=== PATIENT | female | born 1980 | race Caucasian/White ===

== ENCOUNTER → 2017-10-03 07:16 | Outpatient (CLI) | payer OTHER, SELFPAY ==
--- NOTE | 2017-10-03 07:19 | US_ITS ---
STUDY: SALINE INFUSION SONOGRAPHY OF THE UTERUS. REASON FOR EXAM: Female, 37 years old. Infertility. TECHNIQUE: Saline infusion sonography of the endometrium was performed by the tying in machine operator. Imaging was submitted. COMPARISON: None. FINDINGS: No endometrial polyp or mass lesion is seen. US/SIS-SALINE INF SONOHYSTEROGRAM IMPRESSION: No endometrial polyp or mass lesion is seen. Electronically Signed: Coleman Harley MD at 9:26 EST Tel [phone], Service support ,
== END ==
PROVIDERS: Visit Provider Obstetrics & Gynecology
DX: N97.9 Female infertility, unspecified (principal)

== ENCOUNTER 2019-04-24 18:00 | Outpatient (RCR) | payer OTHER, SELFPAY | END 2019-04-27 23:59 | LOC: DC 18:00 | PROVIDERS: Visit Provider Obstetrics & Gynecology | DX: O24.419 Gestational diabetes mellitus in pregnancy, unspecified control (principal) | CPT/HCPCS: 97802 ==

== ENCOUNTER 2019-05-11 10:00 | Outpatient (CLI) | payer OTHER, SELFPAY ==
[2017-08-11 10:51] VITALS: BMI 28.3
[2019-05-11 10:14] VITALS: BMI 32.1
--- NOTE | 2019-05-12 09:11 | OB.TRI.NOTE ---
History of Present Illness Date of Service: 05/11/19 Was patient seen by the physician?: No Reason For Visit: NONSTRESS TEST twins Date of Service: 05/11/19 Final CHHAYA: 07/01/19 Final CHHAYA Source: US <20 weeks Gestational age: 32 Weeks and 6 Days Allergies adhesive tape Allergy (Verified 08/11/17 10:52) Unknown - Pertinent Past Medical History Medical History: Past Medical History (Last Updated 08/11/17 @ 10:54 by Landy Delatorre) H/O wisdom tooth extraction History of in vitro fertilization History of loss of consciousness Seasonal allergies Surgical History: Past Surgical History (Last Updated 08/11/17 @ 10:54 by Landy Delatorre) Hx of section NST - FHR Rate Baby A Baseline: 130 Variability:: Moderate Accelerations:: 15 x 15 Decelerations:: None NST Reactive:: Yes FHR Category:: Category I Uterine Activity:: no ctx - FHR Rate Baby B Baseline: 140 Variability:: Moderate Accelerations:: 15 x 15 Decelerations:: None NST Reactive:: Yes FHR Category:: Category I Uterine Activity:: no ctx Impression/Plan @ 32.5 wks, NST for TWINS well being established- ri home
== END 2019-05-11 10:45 | disposition home health service (06) ==
LOC: WPOUT 10:10 → OBT 10:12
PROVIDERS: Referring Provider Obstetrics & Gynecology; Visit Provider Obstetrics & Gynecology
DX: O30.003 Twin pregnancy, unspecified number of placenta and unspecified number of amniotic sacs, third trimester (principal); Z3A.32 32 weeks gestation of pregnancy
CPT/HCPCS: 59025; 59050; 99218; G0378

== ENCOUNTER 2019-05-14 19:45 | Outpatient (CLI) | payer OTHER, SELFPAY ==
[2019-05-14 20:03] VITALS: BMI 32.5
--- NOTE | 2019-05-15 08:47 | OB.TRI.HP_ITS ---
History of Present Illness Date of Service: 05/14/19 Reason For Visit: NST Date of Service: 05/14/19 Final CHHAYA: 06/30/19 Final CHHAYA Source: US <20 weeks Gestational age: 33 Weeks and 2 Days Allergies adhesive tape Allergy (Verified 08/11/17 10:52) Unknown - Pertinent Past Medical History Medical History: Past Medical History (Last Updated 08/11/17 @ 10:54 by Landy Delatorre) H/O wisdom tooth extraction History of in vitro fertilization History of loss of consciousness Seasonal allergies Surgical History: Past Surgical History (Last Updated 08/11/17 @ 10:54 by Landy Delatorre) Hx of section NST - FHR Rate Baby A Baseline: 125 Variability:: Moderate Accelerations:: 15 x 15 Decelerations:: None NST Reactive:: Yes FHR Category:: Category I Uterine Activity:: irreg mild ctxs - FHR Rate Baby B Baseline: 130 Variability:: Moderate Accelerations:: 15 x 15 Decelerations:: None NST Reactive:: Yes FHR Category:: Category I Uterine Activity:: irreg mild ctxs Impression/Plan 38-year-old high risk multigravida, advanced maternal age, dichorionic d iamniotic twin gestation, in vitro , presents for nonstress testing. NST is reactive x2. Patient was discharged home with routine instructions and follow-up.
== END 2019-05-14 20:30 | disposition home or self-care (01) ==
LOC: WPOUT 19:52 → WP 19:53
PROVIDERS: Referring Provider Obstetrics & Gynecology; Visit Provider Obstetrics & Gynecology
DX: O30.043 Twin pregnancy, dichorionic/diamniotic, third trimester (principal); O09.813 Supervision of pregnancy resulting from assisted reproductive technology, third trimester; O09.523 Supervision of elderly multigravida, third trimester; Z3A.33 33 weeks gestation of pregnancy
CPT/HCPCS: 59025; 59050; 99218; G0378

== ENCOUNTER 2019-05-15 10:00 | Outpatient (RCR) | payer OTHER, SELFPAY ==
[2017-08-11 10:51] VITALS: BMI 28.3
== END 2019-05-15 23:59 | disposition home or self-care (01) ==
LOC: DC 10:00
PROVIDERS: Visit Provider Obstetrics & Gynecology
DX: O24.419 Gestational diabetes mellitus in pregnancy, unspecified control (principal); Z3A.00 Weeks of gestation of pregnancy not specified
CPT/HCPCS: G0108

== ENCOUNTER 2019-05-16 10:00 | Outpatient (CLI) | payer OTHER, SELFPAY ==
[2019-05-16 10:25] VITALS: BMI 31.8
--- NOTE | 2019-05-16 17:27 | OB.TRI.NOTE ---
History of Present Illness Reason For Visit: NST/TWINS Date of Service: 05/16/19 Final CHHAYA: 07/01/19 Final CHHAYA Source: US <20 weeks Gestational age: 33 Weeks and 3 Days Allergies adhesive tape Allergy (Verified 08/11/17 10:52) Unknown - Pertinent Past Medical History Medical History: Past Medical History (Last Updated 08/11/17 @ 10:54 by Landy Delatorre) H/O wisdom tooth extraction History of in vitro fertilization History of loss of consciousness Seasonal allergies Surgical History: Past Surgical History (Last Updated 08/11/17 @ 10:54 by Landy Delatorre) Hx of section NST - FHR Rate Baby A Baseline: 135 Variability:: Moderate Accelerations:: 15 x 15 Decelerations:: Variable NST Reactive:: Yes Uterine Activity:: quiet - FHR Rate Baby B Baseline: 130 Variability:: Moderate Accelerations:: 15 x 15 Decelerations:: Variable NST Reactive:: Yes Uterine Activity:: quiet Impression/Plan Reactive NST for di/di twins in
== END 2019-05-16 10:50 | disposition home or self-care (01) ==
LOC: WPOUT 10:10 → WP 10:10
PROVIDERS: Referring Provider Obstetrics & Gynecology; Visit Provider Obstetrics & Gynecology
DX: O30.043 Twin pregnancy, dichorionic/diamniotic, third trimester (principal); Z3A.33 33 weeks gestation of pregnancy
CPT/HCPCS: 59025

== ENCOUNTER 2019-05-20 09:00 | Outpatient (CLI) | payer OTHER, SELFPAY | END 2019-05-20 09:55 | disposition home or self-care (01) | LOC: WPOUT 09:04 → WP 09:04 | PROVIDERS: Referring Provider Obstetrics & Gynecology; Visit Provider Obstetrics & Gynecology | DX: J02.9 Acute pharyngitis, unspecified (principal) | CPT/HCPCS: 87070 ==

== ENCOUNTER 2019-05-24 09:00 | Outpatient (CLI) | payer OTHER, SELFPAY ==
[2019-05-20 11:24] VITALS: BMI 31.8
[2019-05-24 09:24] VITALS: BMI 31.8
--- NOTE | 2019-05-29 08:56 | OB.TRI.PN ---
Progress Notes Date of Service: 05/24/19 Progress Note: 38 year old female at 34w4d with dichorionic/diamniotic twin gestation for NST. O: Baby A: FHR:135, moderate variability, accels 15x15, Reactive Baby B: 145, moderate variability, accels 15x15, reactive A: Dichorionic Diamniotic twin gestation Advanced Maternal Age Previous Section P: 1) Reactive NST 2) Discharge home
== END 2019-05-24 09:45 | disposition home or self-care (01) ==
LOC: WPOUT 09:02 → WP 09:03
PROVIDERS: Referring Provider Obstetrics & Gynecology; Visit Provider Obstetrics & Gynecology
DX: O30.043 Twin pregnancy, dichorionic/diamniotic, third trimester (principal); O34.219 Maternal care for unspecified type scar from previous cesarean delivery; O09.523 Supervision of elderly multigravida, third trimester; Z3A.36 36 weeks gestation of pregnancy
CPT/HCPCS: 59025; 59050; 99218; G0378

== ENCOUNTER 2019-05-24 09:59 | Emergency (ER) | payer OTHER, SELFPAY ==
[2019-05-24 09:24] VITALS: BMI 31.8
[2019-05-24 10:00] VITALS: BP 129/84; PULSE 102; RESP 22; TEMP 36.9; O2SAT 99; BMI 32.0
--- NOTE | 2019-05-24 10:25 | ED.VIS.GEN ---
History of Present Illness Chief Complaint: Cold Sx Informant: Patient Onset: Days Context: Gradual Onset Timing: Continuous Current Severity: Moderate Maximum Severity: Moderate Narrative: The patient is a healthy 38-year-old female who is currently 34 weeks with twin gestation. The patient presents the emergency department nasal drainage and cough. She states that she developed upper respiratory symptoms about 2 weeks ago. She was seen in urgent care on Monday. She had a negative rapid strep. She states that since then, she had worsening cough. She states she is had a lot of drainage and one episode of posttussive emesis. She denies abdominal pain. She does have edema of her lower extremities, but states this is been constant. She has had low-grade fever. She describes some facial pressure and ear fullness. She denies any chest pain orthopnea. She denies any headache. Prior similar symptoms: No Recent Illness/Hospitalization: No Past Medical History - Allergies and Home Meds Allergies/Adverse Reactions: Allergies adhesive tape Allergy (Verified 05/24/19 10:00) Unknown Primary Care Physician: NOT,DEFINED [Primary Care Provider] - Prior records reviewed: Yes Past Medical History: - - Twin gestation Surgical History: - - Smoking Status: Never smoker Review of Systems General: Denies: Chills, Fever, Sweats Eyes: Denies: Visual changes - bilaterally, Diplopia ENT: Reports: Bilateral ear pain, Rhinorrhea, Sore throat Cardiovascular: Denies: Chest pain, Palpitations Respiratory: Reports: Cough. Denies: Dyspnea, Dyspnea on exertion Gastrointestinal: Denies: Abdominal pain, Nausea, Vomiting, Diarrhea, Melena, Hematochezia Genitourinary: Denies: Dysuria, Hematuria, Frequency Musculoskeletal: Denies: Back pain, Extremity Pain Skin: Denies: Rash, Wounds Neurological: Denies: Headache, Weakness, Numbness Physical Exam Vital Signs/Narrative: Vital Signs Temp Pulse Resp BP Pulse Ox 05/24/19 10:00 98.5 F 102 H 22 H 129/84 H 99 Inital Vital Signs reviewed: Yes General: Well nourished, Well developed, No Acute Distress Head: Normocephalic, Atraumatic, Tenderness Eyes: Perrl, EOMI ENT: Moist mucous membranes, No rhinorrhea Neck: Supple, Nontender Cardiovascular: Regular rate, Regular rhythm, No murmurs Respiratory: No distress, CTA bilaterally, Chest nontender Abdomen: Soft, Nontender, Nondistended, Normal bowel sounds Back: Nontender, Normal Inspection Extremities: Nontender, No edema Skin: Normal color, No rash Neurological: Alert, Oriented x3, Cranial nerves II-XII grossly intact, Normal Strength, Normal Sensation Psychological: Normal affect, Normal Mood Diagnostic/Tx/Re-eval - Medical Decision Making The patient's lungs are clear. She is not hypoxic. She has no tachypnea. She does have symmetric lower extremity edema which is normal for her. She is has a twin gestation. She has some facial fullness, bulging of bilateral TMs, and cobblestoning of the posterior oropharynx. Given her advanced gestation and persistent symptoms I am going to treat her for bacterial sinusitis as I do feel that this would be the most prudent plan of care. Patient is comfortable with this plan of care. She will be discharged home. Impression 1. Sinusitis ED Disposition - Plan for ED Patient: Instructions: SINUSITIS, Abx Tx Prescriptions: Amoxicillin 500 mg PO TID #30 tab Prescription Printed Referrals: NOT,DEFINED [Primary Care Provider] -
== END 2019-05-24 10:56 | disposition home or self-care (01) ==
PROVIDERS: Emergency Provider Emergency Medicine
DX: O99.513 Diseases of the respiratory system complicating pregnancy, third trimester (principal); J32.9 Chronic sinusitis, unspecified; B96.89 Other specified bacterial agents as the cause of diseases classified elsewhere; O30.003 Twin pregnancy, unspecified number of placenta and unspecified number of amniotic sacs, third trimester; Z3A.34 34 weeks gestation of pregnancy
CPT/HCPCS: 99282

== ENCOUNTER 2019-05-28 08:00 | Outpatient (CLI) | payer OTHER, SELFPAY ==
[2019-05-28 08:41] VITALS: BMI 32.1
--- NOTE | 2019-05-28 16:14 | OB.TRI.NOTE ---
History of Present Illness Date of Service: 05/28/19 Was patient seen by the physician?: No Reason For Visit: NON STRESS TEST Date of Service: 05/28/19 Final CHHAYA Source: US <20 weeks Allergies adhesive tape Allergy (Verified 05/28/19 09:25) Unknown - Pertinent Past Medical History Medical History: Past Medical History (Last Updated 05/20/19 @ 11:24 by Katelin Costa) Gestational diabetes H/O wisdom tooth extraction History of in vitro fertilization History of loss of consciousness Seasonal allergies Surgical History: Past Surgical History (Last Reviewed 05/20/19 @ 11:24 by Katelin Costa) Hx of section NST - FHR Rate Baby A Baseline: 125 Variability:: Moderate Accelerations:: 15 x 15 Decelerations:: None NST Reactive:: Yes, Appropriate for gestational age FHR Category:: Category I Uterine Activity:: irreg ctxs - FHR Rate Baby B Baseline: 130 Variability:: Moderate Accelerations:: 15 x 15 Decelerations:: None NST Reactive:: Yes, Appropriate for gestational age FHR Category:: Category I Impression/Plan Diamniotic dichorionic 35-week twin , high risk multigravida, previous section, advanced maternal age, polyhydramnios of twin B Nonstress is reactive x2. Follow-up for twice weekly NSTs and office visits weekly or as needed.
== END 2019-05-28 08:55 | disposition home or self-care (01) ==
LOC: WPOUT 08:05 → WP 08:07
PROVIDERS: Referring Provider Obstetrics & Gynecology; Visit Provider Obstetrics & Gynecology
DX: O30.043 Twin pregnancy, dichorionic/diamniotic, third trimester (principal); O34.219 Maternal care for unspecified type scar from previous cesarean delivery; O09.523 Supervision of elderly multigravida, third trimester; O40.3XX2 Polyhydramnios, third trimester, fetus 2; Z3A.35 35 weeks gestation of pregnancy
CPT/HCPCS: 59025

== ENCOUNTER 2019-05-30 06:20 | Inpatient (IN) | payer OTHER, SELFPAY ==
--- NOTE | 2019-05-27 07:46 | OB.TRI.PN ---
Progress Notes Date of Service: 05/24/19 Progress Note: Here today for NST twin gestation O: Baby A 145, moderate variability, accels, no decels, Reactive Baby B 150, moderate variability, accels, no decels, Reactive No contractions A: Reactive NST P: 1) D/C home
[2019-05-30] VITALS (22 sets, daily range): BP systolic 90–136; BP diastolic 33–88; PULSE 74–97; RESP 16–22; TEMP 35.9–37.1; O2SAT 96–100; BMI 33.0
[2019-05-30] MEDS: Lactated Ringers 1,000 ML 999 ML IV (06:50)
[2019-05-30 07:06] LABS: Bedside Glucose 79 mg/dL (70-110)
[2019-05-30 07:06] LABS: Absolute Lymphocyte Count 2.59 X10^3/uL (0.83-4.51); Absolute Neutrophil Count 5.6 X10^3/uL (2.0-7.7); Basophil# 0.08 X10^3/uL; Basophil% 0.9 % (0-1); Eosinophil# 0.19 X10^3/uL; Hematocrit 36.7 % (37-47); Hemoglobin 12.7 g/dL (12.0-15.0); Lymphocyte # 2.59 X10^3/ul (4.0); Lymphocyte % 27.8 % (19-41); Mean Corp Hgb Conc 34.6 g/dL (32-36); Mean Corpuscular Hgb 35.4 pg (27.0-32.0); Mean Corpuscular Volume 102.2 fL (81-99); Mean Platelet Vol. 9.5 fl (6.2-12.0); Monocyte# 0.51 X10^3/uL; Monocyte% 5.5 % (0-10); NRBC Flagged by Analyzer 0 % (0-5); Neutrophil % 60.1 % (47-70); Platelet Count 279 K/mm3 (150-450); RBC Distribution Width CV 13.2 % (11.6-14.6); RBC Distribution Width SD 49.3 fl (35.1-43.9); Red Blood Count 3.59 M/mm3 (4.2-5.4); White Blood Count 9.3 K/mm3 (4.4-11.0)
[2019-05-30 07:12] LABS: ROM Internal Control Test YES-OK TO RESULT pt. (Internal QC)
[2019-05-30 07:14] LABS: Record Kit Lot#, ROM+ J8255
[2019-05-30 07:22] LABS: ROM Patient Test POSITIVE (Negative)
[2019-05-30] MEDS: Sodium Citrate/Citric Acid 30 ML UDC PO (07:38)
--- NOTE | 2019-05-30 07:40 | PCM.HP.OB ---
History Date of Admission: 05/30/19 Final CHHAYA: 07/01/19 Final CHHAYA Source: US <20 weeks Gestational age: 35 Weeks and 3 Days History of this : This is a 38 year-old, G [], P [], at 35 weeks gestational age. Medical History: Medical History (Last Updated 05/20/19 @ 11:24 by Katelin Costa) Gestational diabetes O24.419 H/O wisdom tooth extraction K08.499 History of in vitro fertilization Z98.890 History of loss of consciousness Z87.898 Seasonal allergies J30.2 Surgical History: Surgical History (Last Reviewed 05/20/19 @ 11:24 by Katelin Costa) Hx of section Z98.891 Allergies adhesive tape Allergy (Verified 05/30/19 06:43) Unknown Home Medications: Home Medications Prenatabs FA 1 tab PO DAILY 01/03/17 Ferrous Sulfate [Iron] 325 mg PO QODAY 05/11/19 Aspirin [Aspirin, Baby] 81 mg PO DAILY@0800 05/24/19 Amoxicillin 500 mg PO TID 05/30/19 Smoking Status: Never smoker Alcohol: None Number of Fetus(es): 2 NST - FHR Rate Baby A Baseline: 125 Variability:: Moderate Accelerations:: 15 x 15 Decelerations:: Variable NST Reactive:: Yes Uterine Activity:: quiet - FHR Rate Baby B Baseline: 130 Variability:: Moderate Accelerations:: 15 x 15 Decelerations:: Variable NST Reactive:: Yes Uterine Activity:: quiet History Past Pregnancies: Past Pregnancies Delivery Date Name GA/Weeks Outcome Route Weight Infant Gender Labor Length Anesthesia Delivery Location Provider FOB Labs: See [facility] prenatals Physical Exam General: Alert, Oriented x3 Abdomen: Soft, Non Tender, Non-Distended, Gravid Neurological: Cranial nerves II-XII grossly intact WIRE 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 Admit to L&D MOD - repeat , informed consent signed Pre-op antibiotics Routine care
[2019-05-30] MEDS: Cefazolin 2 GM in 0.9% Normal Saline 100 ML IV (07:45)
--- NOTE | 2019-05-30 07:47 | OP.PCM_ITS ---
Delivery Classification: TESSY Final CHHAYA: 07/01/19 Gestational age: 35 Weeks and 3 Days corrections corporal: Fely Harris Type of Anesthesia:: Spinal Date of Procedure: 05/30/19 Pre-Operative Diagnosis: (1) Di/di twins (2) PPROM (3) Prior Post-Operative Diagnosis: Same Description of Procedure: Patient taken to OR where spinal anesthesia was placed. She was prepped and draped in normal sterile fashion in a dorsal supine position with a leftward tilt. After ensuring adequacy of anesthesia the Pfannensteil skin incision was made and carried through to the underlying fascia w/ a bovie. The fascia was incised in the midline and carried laterally with the De scissors. The rectus muscles were in the midline and the peritoneum was entered bluntly. The bladder flap was dissected down with the Metzenbaum scissors and blunt dissection. The uterine incision was made with the scalpel and extended lat erally w/ blunt dissection. Fetus A was vertex and the head was brought to the incision in the flexed position. With good fundal pressure the head delivered. Shoulders & body easily followed. The cord was clamped & cut and the infant handed off to waiting pediatric associate. Fetus B feet were grasped & then amniotomy performed. Fetus B was delivered via typical breech maneuvers. 3VC clamped & cut and the was handed to waiting pediatric associate. The placentas were delivered w/ gentle traction and fundal massage and the uterus was exteriorized and cleared of all clots and debris. The uterine incision was closed with 1 vicryl suture in a running locked fashion. A second layer monocryl was used to imbricate the first layer and obtain hemostasis. The uterus was returned to the peritoneal cavity which was cleared of all clots and debris. Pelvis was irrigated. The uterine incision was reexamined and found to be hemostatic. The parietal peritoneum was reapproximated with a running vicryl suture. The fascia was closed with looped PDS suture in a running standard fashion. The subcutaneous tissue was examined, any bleeding bovie cauterized. The subcutaneous tissue was reapproximated with 3-0 vicryl suture. The skin was closed in a subcuticular fashion by the SPEECH AND HEARING DIRECTOR with me present in the labor and delivery suite. I performed the remainder of the procedure w/ assistance. Amniotic Membrane Rupture Type: Spontaneous Amniotic Fluid Description: Clear Placenta Disposition: [facility] Drain: Avery to straight drain Fluids Replaced: 1L Cord Entanglement: None Cord Vessel Description: 3 Vessels Esitmated Blood Loss (ml): 700ml Gender: Female - Regina, weight 4-14 (1 minute): 7 (5 minute): 9 Delayed cord clamping: No Antibiotic Given: Ancef 2 grams IV x1, Zithromax 500 mg/5 mL X1 Complications: None Baby B - Information Amniotic Membrane Rupture Type: Artificial Presentation: Footling Breech - Operative Information Cord Entanglement: None Cord Vessel Description: 3 Vessels Infant B gender: Male - Alejandro - 5-9 (1 minute): 6 (5 minute): 8
[2019-05-30 08:04] LABS: Group B Strep DNA By PCR Negative (Negative); Internal Control PASS; Probe Check PASS; Specimen Processing Control PASS
[2019-05-30] MEDS: Oxytocin 30 units/NS 500 ml 30 UNITS/500 ML IV.SOLN 167 UNITS IV (09:45)
[2019-05-30 10:40] LABS: Bedside Glucose 109 mg/dL (70-110)
[2019-05-30] MEDS: Lactated Ringers 1,000 ML 100 ML IV (12:45)
[2019-05-30] MEDS: Ketorolac 30 MG/ML Syringe IV ×2 (15:27→21:41)
[2019-05-30] MEDS: AMOXICILLIN 500 MG CAPSULE PO (21:41)
--- NOTE | 2019-05-30 23:51 | NURSING ---
Pt up to BR a few times attempting to void, only able to void 50cc, fundus at U and to left. Pt straight cath'd for 200cc clear yellow urine with sterile technique, pt tolerated well.
[2019-05-31 00:45] VITALS: BP 127/85; PULSE 78; RESP 17; TEMP 35.9; O2SAT 100
[2019-05-31 02:40] VITALS: PULSE 72; RESP 18; O2SAT 99
[2019-05-31 03:45] VITALS: BP 119/63; PULSE 84; RESP 17; TEMP 36.2; O2SAT 99
[2019-05-31] MEDS: 0.9% Saline Lock 10 ML Syringe IV (03:48)
[2019-05-31] MEDS: Ketorolac 30 MG/ML Syringe IV (03:48)
[2019-05-31] MEDS: AMOXICILLIN 500 MG CAPSULE PO (05:37)
[2019-05-31 05:40] VITALS: PULSE 73; RESP 17; O2SAT 98
[2019-05-31 05:50] LABS: Hematocrit 28.9 % (37-47); Hemoglobin 9.9 g/dL (12.0-15.0); Mean Corp Hgb Conc 34.3 g/dL (32-36); Mean Corpuscular Volume 102.1 fL (81-99); Mean Platelet Vol. 9.6 fl (6.2-12.0); Platelet Count 168 K/mm3 (150-450); RBC Distribution Width CV 13.2 % (11.6-14.6); RBC Distribution Width SD 49.5 fl (35.1-43.9); Red Blood Count 2.83 M/mm3 (4.2-5.4); White Blood Count 12.1 K/mm3 (4.4-11.0)
[2019-05-31 05:51] LABS: Bedside Glucose 80 mg/dL (70-110)
--- NOTE | 2019-05-31 07:38 | PCM.PN.OB ---
Subjective: No complaints - Physical Exam General: Alert, Oriented x3 Abdomen: Soft, Non Tender, Non-Distended - ff mid & below umb; inc - bandage c/d/i Extremities: No Calf Tenderness Vital Signs Temp Pulse Resp BP Pulse Ox 97.2 F L 73 17 119/63 98 05/31/19 03:45 05/31/19 05:40 05/31/19 05:40 05/31/19 03:45 05/31/19 05:40 Oxygen Delivery Method Room Air Weight: 163 lb 9.6 oz Body Mass Index (BMI) 33.0 Intake and Output for Last 24 Hours 05/29/19 05/30/19 05/31/19 23:59 23:59 23:59 Intake Total 3280.75 / 3280.75 Output Total 500 / 500 425 / 425 Balance 2780.75 / 2780.75 -425 / -425 Laboratory Tests Past 24 Hrs 05/30/19 05/30/19 05/31/19 06:30 06:30 05:40 WBC 12.1 H RBC 2.83 L Hgb 9.9 L Hct 28.9 L MCV 102.1 H MCH 35.0 H MCHC 34.3 RDW Std Deviation 49.5 H RDW Coeff of Ella 13.2 Plt Count 168 MPV 9.6 Group B Strep DNA Negative Specimen Comment Not Reportable Blood Type B POSITIVE Antibody Screen NEGATIVE POC Glucose 05/31/19 05/30/19 05:43 10:18 POC Glucose 80 109 Medical Necessity - Tobacco Use Smoking Status: Never smoker Assessment/Plan All Active Problems (Last Updated 05/20/19 @ 11:24 by Katelin Costa) Pharyngitis (Acute) URI (upper respiratory infection) (Acute) Tinea corporis (Acute) Staph infection (Acute) POD#1 Heme - HDC, continue iron for mild anemia - kumari out, adequate UOP GI - tolerating PO ID - no signs infection D/c home per patient request so she can be with her babies
--- NOTE | 2019-05-31 07:40 | DCINST_ITS ---
Discharge Diet: No Restrictions Discharge Activity: May not drive while taking narcotic pain medications., May Shower May resume sexual activity in: 4-6 weeks Weight Bearing Status: Weight bearing as tolerated Call your doctor if your incision/area has: Continuous Slow Oozing, Sudden Increased Bleeding, Increased Pain/ Swelling, Increased Redness, Foul Smelling Discharge, Swelling at the incision site Suture Line Care: Avoid Pulling/Pushing Cleanse incision/area with: Soap & Water Additional Instructions: If you experience any of the following, contact your healthcare provider. * Bleeding that soaks a pad every hour for 2 hours * Fever 100.4 or higher * Unrelieved incision or abdominal pain * Swelling, redness, discharge or bleeding from your incision or e pisiotomy site * Your incision begins to separate * Problems urinating (including inability to urinate or burning while urinating). * Visual changes * Severe headache * Flu-like symptoms * Pain or redness in one of both of your breasts * Pain, warmth, tenderness or swelling in your legs, especially the calf area * Frequent nausea and vomiting * Symptoms of depression or anxiety If you experience any of the following, call 911 or go to the nearest Emergency Room. * Chest pain * Problems breathing * Seizure activity * Partial or complete paralysis of a body part, slurred speech, weakness or drooping of the face, or a sudden inability to walk or hold your balance Allergies/Adverse Reactions: Allergies adhesive tape Allergy (Verified 05/30/19 06:43) Unknown Medications to take at Discharge Prenatabs FA 1 tab PO DAILY 01/03/17 Ferrous Sulfate [Iron] 325 mg PO QODAY 05/11/19 Aspirin [Aspirin, Baby] 81 mg PO DAILY@0800 05/24/19 Amoxicillin 500 mg PO TID 05/30/19 Oxycodone [Oxyir] 5 mg PO Q6H PRN PRN 3 Days #10 tab 05/31/19 The following prescriptions were given: Oxycodone [Oxyir] 5 mg PO Q6H PRN PRN 3 Days #10 tab PRN Reason: Pain Score 4-10/10 Prescription Printed Follow-Up: Call to make an appointment with your doctor for an incision check in 1-2 weeks. You will also need a 6 week post- follow up appointment. Test results from this visit will be discussed in further detail at your follow- up appointment, if applicable. Primary Care Physician: Manuel Greer MD [Primary Care Provider] -
[2019-05-31 08:20] VITALS: BP 132/62; PULSE 90; RESP 18; TEMP 36.2
[2019-05-31] MEDS: Ibuprofen 600 MG Tablet PO (09:40)
== END 2019-05-31 09:50 | disposition home or self-care (01) | DRG 788 ==
PROVIDERS: Obstetrics & Gynecology; Admitting Provider Obstetrics & Gynecology; Referring Provider Obstetrics & Gynecology; Visit Provider Obstetrics & Gynecology
DX: O42.913 Preterm premature rupture of membranes, unspecified as to length of time between rupture and onset of labor, third trimester (principal); O34.211 Maternal care for low transverse scar from previous cesarean delivery; O32.1XX2 Maternal care for breech presentation, fetus 2; O30.043 Twin pregnancy, dichorionic/diamniotic, third trimester; O24.429 Gestational diabetes mellitus in childbirth, unspecified control; O99.02 Anemia complicating childbirth; D64.9 Anemia, unspecified; O99.52 Diseases of the respiratory system complicating childbirth; J01.90 Acute sinusitis, unspecified; J30.2 Other seasonal allergic rhinitis; Z3A.35 35 weeks gestation of pregnancy; Z37.2 Twins, both liveborn; Z79.82 Long term (current) use of aspirin
CPT/HCPCS: 59025; 59050; 82962; 84112; 85025; 85027; 86850; 86900; 86901; 87081; 87653; 99218; J7120; A4216; G0378

== ENCOUNTER 2021-06-03 13:12 | Emergency (ER) | payer OTHER, SELFPAY ==
[2021-06-03 13:13] VITALS: BP 137/81; PULSE 88; RESP 19; TEMP 38.2; O2SAT 97; BMI 29.5
--- NOTE | 2021-06-03 13:39 | EX.ED.GENINJ ---
HPI History of Present Illness Chief Complaint: Laceration Informant: patient Narrative Narrative: 40-year-old female sustained a right index finger laceration on the blades of a director food and beverage. She notes continued bleeding. Patient notes that she is feeling slightly feverish and got her second Covid vaccination yesterday [facility] Medical History Gestational diabetes History of in vitro fertilization History of loss of consciousness Seasonal allergies Home Medications Prenatabs FA 1 tab PO DAILY 01/03/17 [History Last Taken 05/29/19 20:00] ferrous sulfate 325 mg PO QODAY 05/11/19 [History Last Taken 05/29/19 20:00] aspirin 81 mg PO DAILY@0800 05/24/19 [History Last Taken 05/29/19 20:00] amoxicillin 500 mg PO TID 05/30/19 [History Last Taken 05/29/19 20:00] Allergy/AdvReac Type Severity Reaction Status Date / Time adhesive tape Allergy Unknown Verified 06/03/21 13:15 Family History Other Epilepsy Hypertension Skin cancer Surgical History H/O wisdom tooth extraction Hx of section Social History Smoking Status: Never smoker alcohol intake: never ROS ROS ED Constitutional Constitutional ED: Denies chills or weight loss Eyes Eyes: Denies change in vision or diplopia ENT ENT ED: Denies ear pain, rhinorrhea or sore throat Cardiovascular Cardiovascular: Denies chest pain, orthopnea, palpitations or racing heartbeat Respiratory/Chest Respiratory/Chest: Denies cough, dyspnea or orthopnea Gastrointestinal Gastrointestinal: Denies abdominal pain, diarrhea, nausea or vomiting Genitourinary Genitourinary ED: Denies dysuria, hematuria or urinary frequency Musculoskeletal Musculoskeletal: Denies arthralgias or myalgias Integumentary Reports other Details: Laceration ; Denies abscess or rash Neurologic Neurologic: Denies headache(s) or weakness Psychiatric Psychiatric: Denies anxiety, depression, suicidal ideation or suicidal thoughts Endocrine Endocrinology: Denies polydipsia, polyphagia or polyuria Allergic/Immunologic Allergic/Immunologic ED: Denies mouth swelling, tongue swelling or urticaria EXAM Physical Exam Const Vital Signs: 06/03/21 13:13 Temperature 100.8 F H Temperature Source Temporal Pulse Rate 88 Respiratory Rate 19 H Blood Pressure 137/81 H Blood Pressure Mean 99 Pulse Ox 97 Oxygen Delivery Method Room Air Positive well nourished and well developed General Appearance ED: well developed HEENT Reports normocephalic, head/scalp atraumatic and moist mucous membranes Eyes PERRL and EOMs intact bilaterally Neck no lymphadenopathy, supple and no JVD Resp normal respiratory effort and clear to auscultation bilaterally Cardio regular rate, regular rhythm and no murmurs GI normal to inspection, nondistended, normoactive bowel sounds and non-tender Palpation: soft Back/Spine no CVA tenderness and normal ROM Extremity Extremity Narrative: There is a T shaped laceration measuring approximately 1 cm x 2 mm. There is active bleeding. General Extremety ED: Negative for edema General Extremity: Negative for edema Neuro oriented x3 and CN's II-XII intact bilaterally Sensorium / Orientation: alert Motor Exam: strength 5/5 throughout Psych mental status grossly normal Mood & Affect: Negative for depressed or tearful Skin no rashes or lesions noted MDM MDM MDM Narrative Medical decision making narrative: Tourniquet was applied. 1% lidocaine and epinephrine was instilled into the wound. Adequate anesthesia and hemostasis was obtained. The wound was closed using a total of 3 simple interrupted 5-0 Ethilon sutures. Wound care discussed with patient return if worsening or concerns Discharge Plan Triage Chief Complaint: Laceration ED Provider: Chandan Zaamn Dx/Rx/DC Orders Clinical Impression: Finger laceration Instructions: ED Laceration, Hand: All Closures Prescriptions: No Action Prenatabs FA 1 tab PO DAILY RF: 0 amoxicillin 500 MG tablet 500 mg PO TID RF: 0 ferrous sulfate 325 MG tablet 325 mg PO QODAY RF: 0 aspirin 81 MG tablet,chewable 81 mg PO DAILY@0800 RF: 0 Primary Care Provider: Long Jackson Referrals: Long Jackson MD [Primary Care Provider] - Activity Restrictions/Additional Instructions: Please follow-up with your primary care doctor in 7 to 10 days for suture removal Disposition Disposition: Home, Self Care
[2021-06-03] MEDS: Lidocaine 1% /Epi 1:100 (20ml) 20 ML Vial INFILT (13:47)
== END 2021-06-03 13:59 | disposition home or self-care (01) ==
LOC: ED 13:51
PROVIDERS: Emergency Provider Emergency Medicine; PCP Obstetrics & Gynecology
DX: S61.210A Laceration without foreign body of right index finger without damage to nail, initial encounter (principal); W26.8XXA Contact with other sharp object(s), not elsewhere classified, initial encounter
CPT/HCPCS: 12001; 99283

== ENCOUNTER → 2021-07-03 10:20 | Outpatient (CLI) | payer OTHER, SELFPAY ==
[2021-07-03 11:19] LABS: Hemoglobin A1c 5.5 % (3.8-5.6)
[2021-07-03 11:37] LABS: AST(SGOT) 15 U/L (15-37); Alanine Aminotransfer ALT/SGPT 27 U/L (13-56); Albumin, Serum 3.7 g/dL (3.2-5.0); Alkaline Phosphatase 131 U/L (45-117); Anion Gap 3 (5-15); BUN 16 mg/dL (7-18); BUN/Creat Ratio 21.3 RATIO (10-20); Chloride 106 mmol/L (98-107); Cholesterol 192 mg/dL (200); Creatinine, Serum 0.75 mg/dL (0.55-1.02); EST Glomerular Filtration Rate 91 mL/min (>60); Est Glom Filt Rate - Afr Amer 110 mL/min (>60); Globulin 3.6 g/dL (2.2-4.2); Glucose 98 mg/dL (74-106); High Density Lipoprotein 44 mg/dL; Protein, Total 7.3 g/dL (6.4-8.2); Sodium Level 137 mmol/L (136-145); Triglycerides 285 mg/dL; Very Low Density Lipoprotein 57 mg/dL (5-40)
[2021-07-05 10:07] LABS: Hepatitis C Antibody Non-Reactive (Nonreactive)
== END ==
PROVIDERS: PCP Physician Assistant; Visit Provider Physician Assistant
DX: Z00.00 Encounter for general adult medical examination without abnormal findings (principal); Z11.59 Encounter for screening for other viral diseases; Z13.220 Encounter for screening for lipoid disorders; Z13.6 Encounter for screening for cardiovascular disorders; Z13.1 Encounter for screening for diabetes mellitus; Z86.32 Personal history of gestational diabetes
CPT/HCPCS: 36415; 80053; 80061; 83036; 86803; 86804

== ENCOUNTER → 2021-12-23 | Outpatient (CLI) | payer OTHER, SELFPAY ==
[2021-12-23 10:11] LABS: Absolute Neutrophil Count 6.1 X10^3/uL (2.0-7.7); Basophil# 0.05 X10^3/uL; Basophil% 0.6 % (0-1); Eosinophil# 0.16 X10^3/uL; Eosinophils% 1.8 % (0-5); Hematocrit 35.9 % (37-47); Hemoglobin 11.7 g/dL (12.0-15.0); Lymphocyte % 23.5 % (19-41); Mean Corp Hgb Conc 32.6 g/dL (32-36); Mean Corpuscular Hgb 29.8 pg (27.0-32.0); Mean Corpuscular Volume 91.3 fL (81-99); Mean Platelet Vol. 8.9 fl (6.2-12.0); Monocyte# 0.48 X10^3/uL; Monocyte% 5.4 % (0-10); NRBC Flagged by Analyzer 0 % (0-5); Neutrophil % 68.3 % (47-70); Platelet Count 350 K/mm3 (150-450); RBC Distribution Width CV 12.7 % (11.6-14.6); RBC Distribution Width SD 41.9 fl (35.1-43.9); Red Blood Count 3.93 M/mm3 (4.2-5.4); White Blood Count 8.9 K/mm3 (4.4-11.0)
[2021-12-23 10:31] LABS: Hemoglobin A1c 5.4 % (3.8-5.6)
[2021-12-23 12:14] LABS: HIV - WCH Non-Reactive (Nonreactive); Hepatitis B Surface Antigen Non-Reactive (Nonreactive); Hepatitis C Antibody Non-Reactive (Nonreactive); Rubella IgG Reactive (Nonreactive); Syphilis Antibodies Non-reactive
== END | disposition home or self-care (01) ==
LOC: LAB 09:54
PROVIDERS: PCP Physician Assistant; Referring Provider Obstetrics & Gynecology; Visit Provider Obstetrics & Gynecology
DX: O09.529 Supervision of elderly multigravida, unspecified trimester (principal); Z3A.00 Weeks of gestation of pregnancy not specified
CPT/HCPCS: 36415; 83036; 85025; 86703; 86762; 86780; 86803; 86850; 86900; 86901; 87340

== ENCOUNTER → 2022-02-19 | Outpatient (CLI) | payer OTHER, SELFPAY ==
[2022-02-26 00:06] LABS: AFP MoM Value 0.63 (.); AFP Value-EIA 23.5 ng/mL (.); Comment Report (.); DIA MoM Value 1.64 (.); DIA Value-EIA 236.95 pg/mL (.); DSR (By Age) 85 (.); DSR (Second Trimester) 17 (.); Gestational Age 16.9 WEEKS (.); Maternal Age At EDD 40.1 yr (.); hCG MoM 1.78 (.)
[2022-02-26 15:31] LABS: Gestat. Age Based On EDD (.)
== END | disposition home or self-care (01) ==
PROVIDERS: PCP Physician Assistant; Referring Provider Advanced Practice Midwife; Visit Provider Advanced Practice Midwife
DX: Z34.92 Encounter for supervision of normal pregnancy, unspecified, second trimester (principal)
CPT/HCPCS: 36415; 82105; 82677; 84702

== ENCOUNTER → 2022-05-07 | Outpatient (CLI) | payer OTHER, SELFPAY ==
[2022-05-07 09:29] LABS: Absolute Lymphocyte Count 1.56 X10^3/uL (0.83-4.51); Absolute Neutrophil Count 5.4 X10^3/uL (2.0-7.7); Basophil# 0.04 X10^3/uL; Basophil% 0.5 % (0-1); Eosinophil# 0.23 X10^3/uL; Eosinophils% 2.9 % (0-5); Hemoglobin 10.3 g/dL (12.0-15.0); Lymphocyte # 1.56 X10^3/ul (0.83-4.51); Lymphocyte % 19.8 % (19-41); Mean Corp Hgb Conc 32.2 g/dL (32-36); Mean Corpuscular Hgb 32.2 pg (27.0-32.0); Mean Platelet Vol. 9.6 fl (6.2-12.0); Monocyte# 0.51 X10^3/uL; Monocyte% 6.5 % (0-10); NRBC Flagged by Analyzer 0 % (0-5); Neutrophil # 5.36 X10^3/uL (2.7-7.7); Neutrophil % 68.3 % (47-70); Platelet Count 295 K/mm3 (150-450); RBC Distribution Width CV 13.4 % (11.6-14.6); RBC Distribution Width SD 48.6 fl (35.1-43.9); White Blood Count 7.9 K/mm3 (4.4-11.0)
[2022-05-07 09:53] LABS: Glucose Challenge Gest 1H 50g 193 mg/dL (70-140)
[2022-05-09 08:56] LABS: Syphilis Antibodies Non-reactive
== END | disposition home or self-care (01) ==
LOC: LAB 08:01
PROVIDERS: PCP Physician Assistant; Referring Provider Obstetrics & Gynecology; Visit Provider Obstetrics & Gynecology
DX: O09.529 Supervision of elderly multigravida, unspecified trimester (principal); Z3A.00 Weeks of gestation of pregnancy not specified
CPT/HCPCS: 36415; 82950; 85025; 86780

== ENCOUNTER → 2022-06-17 | Outpatient (CLI) | payer OTHER, SELFPAY ==
[2022-06-17 14:02] LABS: Absolute Lymphocyte Count 2.42 X10^3/uL (0.83-4.51); Absolute Neutrophil Count 6.8 X10^3/uL (2.0-7.7); Basophil# 0.04 X10^3/uL; Basophil% 0.4 % (0-1); Eosinophil# 0.16 X10^3/uL; Eosinophils% 1.5 % (0-5); Hematocrit 34.4 % (37-47); Hemoglobin 11.5 g/dL (12.0-15.0); Lymphocyte # 2.42 X10^3/ul (0.83-4.51); Lymphocyte % 23.3 % (19-41); Mean Corp Hgb Conc 33.4 g/dL (32-36); Mean Corpuscular Hgb 32.8 pg (27.0-32.0); Mean Platelet Vol. 9.8 fl (6.2-12.0); Monocyte# 0.74 X10^3/uL; Monocyte% 7.1 % (0-10); NRBC Flagged by Analyzer 0 % (0-5); Neutrophil # 6.77 X10^3/uL (2.7-7.7); Neutrophil % 65.2 % (47-70); Platelet Count 282 K/mm3 (150-450); RBC Distribution Width CV 14.1 % (11.6-14.6); RBC Distribution Width SD 49.9 fl (35.1-43.9); Red Blood Count 3.51 M/mm3 (4.2-5.4); White Blood Count 10.4 K/mm3 (4.4-11.0)
== END | disposition home or self-care (01) ==
LOC: LAB 12:58
PROVIDERS: PCP Physician Assistant; Referring Provider Advanced Practice Midwife; Visit Provider Advanced Practice Midwife
DX: Z34.83 Encounter for supervision of other normal pregnancy, third trimester (principal)
CPT/HCPCS: 36415; 85025

== ENCOUNTER 2022-06-30 13:00 | Outpatient (CLI) | payer OTHER, SELFPAY ==
[2022-06-30 13:08] VITALS: BMI 34.4
[2022-06-30 13:13] VITALS: BP 110/69; PULSE 90
--- NOTE | 2022-07-04 21:09 | OB.TRI.NOTE ---
HPI - General General Date of Admission: 06/30/22 Date of Service: 06/30/22 Chief Complaint: scheduled NST HPI Narrative ZAINAB SANTIAGO, is a 42 F who presents for scheduled NST for A2GDM. [facility] Medical History Gestational diabetes History of in vitro fertilization History of loss of consciousness Seasonal allergies Home Medications Prenatabs FA 1 tab PO DAILY Check with primary doctor 01/03/17 [History Last Taken 06/29/22 21:00] ferrous sulfate 325 mg (65 mg iron) tablet 45 mg PO QHS Check with primary doctor 05/11/19 [History Last Taken 06/29/22 21:00] aspirin 81 mg chewable tablet 81 mg PO DAILY@0800 Check with primary doctor 05/24/19 [History Last Taken 06/29/22 21:00] Novolin 70-30 FlexPen U-100 16 units IJ QHS 06/30/22 [History Last Taken 06/29/22 21:00] amoxicillin 875 mg-potassium clavulanate 125 mg tablet 1 tab PO BID 10 days #20 tabs 07/02/22 [Rx Last Taken Unknown] Allergy/AdvReac Type Severity Reaction Status Date / Time adhesive tape Allergy Unknown Verified 07/02/22 09:09 Family History Other Epilepsy Hypertension Skin cancer Surgical History H/O wisdom tooth extraction Hx of section Social History Smoking Status: Never smoker alcohol intake: never History Elective abortions Hx Para 1 Spontaneous abortions Hx # Term Pregnancies Ectopic pregnancies Hx # Pregnancies Multiple births # of living children NST FHR Rate Baby A Baseline: 120 Variability:: Moderate Accelerations:: 15 x 15 Decelerations:: None NST Reactive:: Yes Uterine Activity:: None Assessment & Plan (1) Gestational diabetes: PLAN: NST reactive Continue weekly antepartum testing as scheduled and follow up in office (2) 35 weeks gestation of :
== END 2022-06-30 13:45 | disposition home or self-care (01) ==
LOC: WPOUT 13:06 → WP 13:06
PROVIDERS: PCP Physician Assistant; Visit Provider Obstetrics & Gynecology
DX: O24.419 Gestational diabetes mellitus in pregnancy, unspecified control (principal); Z79.4 Long term (current) use of insulin; Z3A.40 40 weeks gestation of pregnancy
CPT/HCPCS: 59025; 59050; 99218; G0378

== ENCOUNTER 2022-07-12 11:00 | Outpatient (CLI) | payer OTHER, SELFPAY ==
[2022-07-12 11:07] VITALS: BP 140/93; PULSE 103
[2022-07-12 11:09] VITALS: BMI 34.3
[2022-07-12 11:27] VITALS: BP 123/77; PULSE 77
--- NOTE | 2022-07-20 00:07 | OB.TRI.HP_ITS ---
HPI - General General Date of Admission: 07/12/22 Date of Service: 07/12/22 HPI Narrative ZAINAB SANTIAGO, is a 42 F who presents [facility] Medical History Gestational diabetes History of in vitro fertilization History of loss of consciousness Seasonal allergies Home Medications Prenatabs FA 1 tab PO DAILY Check with primary doctor 01/03/17 [History Last Taken 07/18/22 21:00] ferrous sulfate 325 mg (65 mg iron) tablet 45 mg PO QHS Check with primary doctor 05/11/19 [History Last Taken 07/18/22 21:00] aspirin 81 mg chewable tablet 81 mg PO DAILY@0800 Check with primary doctor 05/24/19 [History Last Taken 07/18/22 21:00] Novolin 70-30 FlexPen U-100 16 units IJ QHS 06/30/22 [History Last Taken 07/18/22 21:00] Allergy/AdvReac Type Severity Reaction Status Date / Time adhesive tape Allergy Unknown Verified 07/19/22 09:51 Family History Other Epilepsy Hypertension Skin cancer Surgical History H/O wisdom tooth extraction Hx of section Social History Smoking Status: Never smoker alcohol intake: never History Elective abortions Hx Para 1 Spontaneous abortions Hx # Term Pregnancies Ectopic pregnancies Hx # Pregnancies Multiple births # of living children NST FHR Rate Baby A Baseline: 130 Variability:: Moderate Accelerations:: 15 x 15 Decelerations:: None NST Reactive:: Yes FHR Category:: Category I Uterine Activity:: irritability Assessment & Plan (1) 37 weeks gestation of : PLAN: 37-week advanced maternal age high risk multigravida with history of previous section presents for nonstress test. It is category 1 and reactive. She was discharged home with routine instructions and follow-up.
== END 2022-07-12 11:45 | disposition home or self-care (01) ==
LOC: WPOUT 11:03 → WP 11:03
PROVIDERS: PCP Physician Assistant; Visit Provider Obstetrics & Gynecology
DX: O09.13 Supervision of pregnancy with history of ectopic pregnancy, third trimester (principal); O09.523 Supervision of elderly multigravida, third trimester; Z3A.37 37 weeks gestation of pregnancy; Z79.82 Long term (current) use of aspirin
CPT/HCPCS: 59025; 59050; 99218; G0378

== ENCOUNTER → 2022-07-15 | Outpatient (CLI) | payer OTHER, SELFPAY ==
[2022-07-15 10:57] LABS: AST(SGOT) 25 U/L (15-37); Alanine Aminotransfer ALT/SGPT 40 U/L (13-56); Albumin, Serum 2.2 g/dL (3.2-5.0); Alkaline Phosphatase 257 U/L (45-117); Bilirubin, Direct 0.11 mg/dL (0.00-0.30); Globulin 4.1 g/dL (2.2-4.2); Protein, Total 6.3 g/dL (6.4-8.2)
== END | disposition home or self-care (01) ==
PROVIDERS: PCP Physician Assistant; Visit Provider Obstetrics & Gynecology
DX: O99.719 Diseases of the skin and subcutaneous tissue complicating pregnancy, unspecified trimester (principal); L29.9 Pruritus, unspecified; Z3A.00 Weeks of gestation of pregnancy not specified
CPT/HCPCS: 36415; 80076

== ENCOUNTER 2022-07-19 09:30 | Outpatient (CLI) | payer OTHER, SELFPAY ==
[2022-07-19 09:49] VITALS: BMI 34.9
[2022-07-19 09:54] VITALS: BP 124/70; PULSE 68
--- NOTE | 2022-07-20 00:04 | OB.TRI.NOTE ---
HPI - General HPI Narrative ZAINAB SANTIAGO, is a 42 F who presents PFSH PFS Medical History Gestational diabetes History of in vitro fertilization History of loss of consciousness Seasonal allergies Home Medications Prenatabs FA 1 tab PO DAILY Check with primary doctor 01/03/17 [History Last Taken 07/18/22 21:00] ferrous sulfate 325 mg (65 mg iron) tablet 45 mg PO QHS Check with primary doctor 05/11/19 [History Last Taken 07/18/22 21:00] aspirin 81 mg chewable tablet 81 mg PO DAILY@0800 Check with primary doctor 05/24/19 [History Last Taken 07/18/22 21:00] Novolin 70-30 FlexPen U-100 16 units IJ QHS 06/30/22 [History Last Taken 07/18/22 21:00] Allergy/AdvReac Type Severity Reaction Status Date / Time adhesive tape Allergy Unknown Verified 07/19/22 09:51 Family History Other Epilepsy Hypertension Skin cancer Surgical History H/O wisdom tooth extraction Hx of section Social History Smoking Status: Never smoker alcohol intake: never History Elective abortions Hx Para 1 Spontaneous abortions Hx # Term Pregnancies Ectopic pregnancies Hx # Pregnancies Multiple births # of living children NST FHR Rate Baby A Baseline: 125 Variability:: Moderate Accelerations:: 15 x 15 Decelerations:: None NST Reactive:: Yes FHR Category:: Category I Uterine Activity:: irreg ctxs Assessment & Plan (1) 38 weeks gestation of : PLAN: High risk multigravida with advanced maternal age and history of previous section. Reactive nonstress test. Discharged home with routine follow-up or return as needed.
== END 2022-07-19 10:18 | disposition home or self-care (01) ==
LOC: WPOUT 09:33 → WP 09:34
PROVIDERS: PCP Psychiatry & Neurology Vascular Neurology; Visit Provider Obstetrics & Gynecology
DX: O09.10 Supervision of pregnancy with history of ectopic pregnancy, unspecified trimester (principal); O34.219 Maternal care for unspecified type scar from previous cesarean delivery; O09.523 Supervision of elderly multigravida, third trimester; Z3A.38 38 weeks gestation of pregnancy
CPT/HCPCS: 59025; 59050; 99218; G0378

== ENCOUNTER 2022-07-26 09:30 | Inpatient (IN) | payer OTHER, SELFPAY ==
[2022-07-26] VITALS (16 sets, daily range): BP systolic 102–126; BP diastolic 54–78; PULSE 62–94; RESP 14–19; TEMP 35.8–37; O2SAT 96–99; BMI 35.2
[2022-07-26] MEDS: Lactated Ringers 1,000 ML 999 ML IV (09:55)
[2022-07-26 10:11] LABS: Absolute Lymphocyte Count 2.37 X10^3/uL (0.83-4.51); Absolute Neutrophil Count 5.3 X10^3/uL (2.0-7.7); Basophil# 0.02 X10^3/uL; Basophil% 0.2 % (0-1); Eosinophil# 0.17 X10^3/uL; Hematocrit 35.1 % (37-47); Hemoglobin 11.7 g/dL (12.0-15.0); Lymphocyte # 2.37 X10^3/ul (0.83-4.51); Lymphocyte % 28.3 % (19-41); Mean Corp Hgb Conc 33.3 g/dL (32-36); Mean Corpuscular Hgb 32.2 pg (27.0-32.0); Mean Corpuscular Volume 96.7 fL (81-99); Mean Platelet Vol. 10.4 fl (6.2-12.0); Monocyte# 0.47 X10^3/uL; Monocyte% 5.6 % (0-10); NRBC Flagged by Analyzer 0 % (0-5); Neutrophil # 5.26 X10^3/uL (2.7-7.7); Neutrophil % 62.9 % (47-70); Platelet Count 231 K/mm3 (150-450); RBC Distribution Width CV 13.9 % (11.6-14.6); RBC Distribution Width SD 49.4 fl (35.1-43.9); Red Blood Count 3.63 M/mm3 (4.2-5.4); White Blood Count 8.4 K/mm3 (4.4-11.0)
[2022-07-26] MEDS: Dextrose 5%-Lactated Ringers 1,000 ML 200 ML IV (10:53)
[2022-07-26] MEDS: Acetaminophen 500 MG Tablet 1000 MG PO ×3 (11:00→23:51)
--- NOTE | 2022-07-26 11:32 | NURSING ---
POC BGT 65 at 1030 - pt asymptomatic - notified Dr. Long Jackson at 1042 - MD ordered D5LR at 150mL/hour after LR bolus complete.
[2022-07-26] MEDS: Sodium Citrate/Citric Acid 30 ML UDC PO (11:46)
[2022-07-26] MEDS: Cefazolin 2 GM in 0.9% Normal Saline 100 ML IV (12:06)
--- NOTE | 2022-07-26 12:12 | PCM.HP.OB ---
HPI - General General Date of Admission: 07/26/22 Date of Service: 07/26/22 HPI Narrative ZAINAB SANTIAGO, is a 42 F who presents for repeat . Maternal Data Information Final CHHAYA: 07/31/22 Gestational age: 39&2 PFSH PFSH Medical History (Updated 07/26/22 @ 10:56 by Penelope Middleton) Advanced maternal age (AMA) in Gestational diabetes History of in vitro fertilization History of loss of consciousness Infertility macrosomia Seasonal allergies Home Medications Prenatabs FA 1 tab PO DAILY Check with primary doctor 01/03/17 [History Last Taken 07/25/22 21:00] ferrous sulfate 325 mg (65 mg iron) tablet 45 mg PO QHS Check with primary doctor 05/11/19 [History Last Taken 07/25/22 21:00] aspirin 81 mg chewable tablet 81 mg PO DAILY@0800 AMA 05/24/19 [History Last Taken 07/22/22] Novolin 70-30 FlexPen U-100 16 units IJ QHS GDM 06/30/22 [History Last Taken 07/25/22 20:30] Allergy/AdvReac Type Severity Reaction Status Date / Time adhesive tape Allergy Unknown Verified 07/19/22 09:51 Family History Other Epilepsy Hypertension Skin cancer Surgical History (Updated 07/26/22 @ 12:[address] Long Jackson MD) H/O wisdom tooth extraction Hx of section Status post repeat low transverse section Social History Smoking Status: Never smoker alcohol intake: never History Elective abortions Hx Para 2 Spontaneous abortions Hx # Term Pregnancies Ectopic pregnancies Hx # Pregnancies Multiple births # of living children Vital Signs Vital Signs Vital Signs: 07/26/22 10:07 07/26/22 10:07 07/26/22 10:07 Temperature Temperature Source Pulse Rate 62 62 Respiratory Rate Blood Pressure 118/76 Blood Pressure [BP] Blood Pressure Mean [BP] BP Systolic 118 BP Diastolic 76 Blood Pressure Source [BP] Blood Pressure Position [BP] Blood Pressure Location [BP] Pulse Ox Oxygen Delivery Method 07/26/22 10:07 07/26/22 10:14 Temperature 97.5 F L Temperature Source Temporal Pulse Rate 65 Respiratory Rate 18 Blood Pressure Blood Pressure [BP] 118/76 Blood Pressure Mean [BP] 90 BP Systolic BP Diastolic Blood Pressure Source [BP] Monitor Blood Pressure Position [BP] Semi-Fowlers Blood Pressure Location [BP] Right Arm Pulse Ox 98 98 Oxygen Delivery Method Room Air Weight Weight: 180 lb 1.883 oz Body Mass Index (BMI) 35.2 Physical Exam Const alert, oriented x3 and no apparent distress Chest inspection of chest normal GI soft to palpation, non-tender and non-distended Inspection: gravid external exam normal Labs Labs Labs: Blood Type B POSITIVE Antibody Screen NEGATIVE Hct 35.1 % (37-47) L Hgb 11.7 g/dL (12.0-15.0) L Syphilis Total Ab Non-reactive Rubella IgG Antibody Reactive (Nonreactive) Hep Bs Antigen Non-Reactive (Nonreactive) HIV 1&2 Antibody Non-Reactive (Nonreactive) Glucose 1 Hr 50 gm 193 mg/dL (70-140) H Group B Strep DNA Negative (Negative) Rhogam given: No Miscellaneous Test See [facility] H&P Assessment & Plan (1) Gestational diabetes: (2) Status post repeat low transverse section: COMMENT: @39&2 PLAN: Plan Admit to L&D Repeat - informed consent signed GDMA2 - routine PP monitoring ROutine care
[2022-07-26 12:14] LABS: Bedside Glucose 65 mg/dL (74-106)
--- NOTE | 2022-07-26 13:17 | EX.PCM.OBRPT ---
Maternal Data Information Final CHHAYA: 07[birth year]31/22 Gestational age: 39&2 Details Operative Information Date of Procedure: 07/26/22 Pre-Operative Diagnosis: (1) Prior section Post-Operative Diagnosis: Same Indications for : Repeat Elective Indications Narrative: The patient was taken to the operating room where spinal anesthesia was placed & found to be adequate. She was prepped and draped in the dorsal supine position with a leftward tilt. A Pfannenstiel skin incision was made approximately 2 cm above the symphysis pubis and carried through to the underlying fascia with the scalpel. The fascia was incised incised in the midline and extended laterally with the De scissors. The rectus muscles were in the midline and the peritoneum was entered carefully and bluntly. The peritoneal incision was stretched and the bladder blade was inserted. Vesicouterine peritoneum was tented up, incised & then bladder flap created gently. The uterine incision was made in a low transverse fashion with the scalpel and extended superiorly and inferiorly with blunt dissection. The was transverse (back up) and was rotated to breech. The legs were grasped and the infant was delivered carefully via typical breech maneuvers. The 3VC cord was clamped and cut The was handed off to the waiting pediatric hospitalist. The placenta was delivered with fundal massage and gentle traction in the standard fashion. The uterus was exteriorized and cleared of clots and debris. The uterine incision was closed with #1 Vicryl suture in a running locked fashion. Monocryl suture was used in an imbricating fashion. The incision was examined and was found to be hemostatic. The uterus was returned to the abdominal cavity. After irrigating Mira was placed over the uterine incision as some areas were denuded (but hemostatic). The peritoneum was closed with vicryl suture in running fashion The rectus muscle was examined and any bleeding was Bovie cauterized. The fascia was closed with PDS suture in a running standard fashion. The subcutaneous tissue was examining and any bleeding was Bovie cauterized. The subcutaneous tissue was reapproximated with interrupted sutures. The skin was closed in a subcuticular fashion by the DATA CAPTURE CLERK while I was present in the labor & delivery unit. The remainder of the procedure was performed by me with assistance. All sponge, lap, and needle counts were correct. The patient was taken to her room for recovery in a stable condition. Classification: Scheduled Procedure Type: low transverse field crop farmer #1: Mckinley Kim Type of Anesthesia: Spinal Antibiotic Given: Ancef 2 grams IV x1 Drain: Avery to straight drain Estimated Blood Loss: 800ml Fluids Replaced: 950ml Procedure Start Time: 12:35 Procedure Stop Time: 13:25 Findings Description of Procedure: Normal maternal uterus and adnexa Presentation: Positive for Footling Breech (baby rotated from transverse to breech for delivery) Amniotic Membrane Rupture Type: Artificial Amniotic Fluid Description: Clear Placental Delivery Description: Manual Removal Placenta Disposition: [facility] Cord Vessel Description: 3 Vessels Cord Entanglement: None A Gender: Male ([place], weight = 9lb) (1 minute): 8 (5 minute): 9 Delayed Cord Clamping: No Complications Complications: None
[2022-07-26 13:21] LABS: Bedside Glucose 123 mg/dL (74-106)
[2022-07-26] MEDS: Oxytocin 15 Units/NS 250ml 15 UNITS/250 ML IV.SOLN 83 UNITS IV (13:50)
[2022-07-26] MEDS: Ketorolac 30 MG/ML Syringe IV ×2 (14:29→20:46)
[2022-07-26 14:55] LABS: Bedside Glucose 126 mg/dL (74-106)
--- NOTE | 2022-07-26 14:55 | NURSING ---
1233- blood sugar in OR 123
--- NOTE | 2022-07-26 14:56 | NURSING ---
1429- blood sugar in recovery 126
[2022-07-26] MEDS: Lactated Ringers 1,000 ML 100 ML IV (16:54)
[2022-07-27] MEDS: Ketorolac 30 MG/ML Syringe IV ×2 (02:26→08:38)
[2022-07-27 04:27] VITALS: BP 99/54; PULSE 87; RESP 16; TEMP 36.6; O2SAT 98
[2022-07-27] MEDS: Acetaminophen 500 MG Tablet 1000 MG PO ×2 (05:46→11:46)
[2022-07-27 05:59] LABS: Hemoglobin 9.9 g/dL (12.0-15.0); Mean Corpuscular Hgb 32.4 pg (27.0-32.0); Mean Platelet Vol. 9.9 fl (6.2-12.0); Platelet Count 172 K/mm3 (150-450); RBC Distribution Width CV 14.2 % (11.6-14.6); RBC Distribution Width SD 50.2 fl (35.1-43.9); Red Blood Count 3.06 M/mm3 (4.2-5.4); White Blood Count 8.5 K/mm3 (4.4-11.0)
[2022-07-27 06:06] LABS: Bedside Glucose 77 mg/dL (74-106)
[2022-07-27 08:21] VITALS: BP 105/62; PULSE 87; RESP 16; TEMP 36.3; O2SAT 97
[2022-07-27] MEDS: 0.9% Saline Lock 10 ML Syringe IV (08:47)
--- NOTE | 2022-07-27 08:47 | PN.OBGYN_ITS ---
Subjective Subjective Pain well controlled. Average lochia. No nausea or vomiting. Tolerating regular diet. Urinating without difficulty Objective Data Objective Data Vital Signs: Vital Signs Temp Pulse Resp BP Pulse Ox O2 Del Method 97.3 F L 87 16 105/62 97 Room Air 07/27/22 08:21 07/27/22 08:21 07/27/22 08:21 07/27/22 08:21 07/27/22 08:21 07/27/22 08:21 Oxygen Delivery Method Room Air Weight: 81.7 kg Body Mass Index (BMI) 35.2 Intake & Output: Intake and Output for Last 24 Hours 07/25/22 07/26/22 07/27/22 23:59 23:59 23:59 Intake Total 3374.00 / 3374.00 Output Total 600 / 600 550 / 550 Balance 2774.00 / 2774.00 -550 / -550 Lab / Micro Data Result Diagrams: 07/27/22 05:48 Labs: Laboratory Results - last 24 hr 07/26/22 09:55: WBC 8.4, RBC 3.63 L, Hgb 11.7 L, Hct 35.1 L, MCV 96.7, MCH 32.2 H, MCHC 33.3, RDW Std Deviation 49.4 H, RDW Coeff of Ella 13.9, Plt Count 231, MPV 10.4, Immature Gran % (Auto) 1.000 H, Neut % (Auto) 62.9, Lymph % (Auto) 28.3, [place] % (Auto) 5.6, Eos % (Auto) 2.0, Baso % (Auto) 0.2, Absolute Neuts (auto) 5.3, Absolute Lymphs (auto) 2.37, Nucleated RBC % 0 07/26/22 09:55: Blood Type B POSITIVE, Antibody Screen NEGATIVE 07/26/22 10:28: POC Glucose 65 L 07/26/22 12:33: POC Glucose 123 H 07/26/22 14:29: POC Glucose 126 H 07/27/22 05:38: POC Glucose 77 07/27/22 05:48: WBC 8.5, RBC 3.06 L, Hgb 9.9 L, Hct 30.0 L, MCV 98.0, MCH 32.4 H , MCHC 33.0, RDW Std Deviation 50.2 H, RDW Coeff of Ella 14.2, Plt Count 172, MPV 9.9 Physical Exam Const alert General Appearance: cooperative GI GI Narrative: soft, moderate distention, fundus firm, appropriately tender. Abdominal bandage clean dry and intact Assessment & Plan (1) Status post repeat low transverse section: COMMENT: @39&2 PLAN: Mild postoperative acute blood loss anemia, appropriate for blood loss during surgery. Patient is doing well otherwise. is breast-feeding and doing well. Patient desires discharge home today if okay with pediatrics. We will give routine instructions and prescriptions
--- NOTE | 2022-07-27 08:49 | DS.PCM_ITS ---
Providers Date of Admission: 07/26/22 Primary Care Physician: Dr. Manuel Noland MD Reason For Visit: REPEAT C/S Diagnosis Discharge Diagnosis (1) Status post repeat low transverse section: Status: Acute Code(s): Z98.891 - History of uterine scar from previous surgery Plan: Mild postoperative acute blood loss anemia, appropriate for blood loss during surgery. Patient is doing well otherwise. is breast-feeding and doing well. Patient desires discharge home today if okay with pediatrics. We will give routine instructions and prescriptions Medications at Discharge Home Medications Prenatabs FA 1 tab PO DAILY Check with primary doctor 01/03/17 ferrous sulfate 325 mg (65 mg iron) tablet 45 mg PO QHS Check with primary doctor 05/11/19 oxycodone 5 mg tablet 5 mg PO Q8H PRN severe pain 7 days #10 TABLETS 07/27/22 Hospital Course Operations - (Repeat low transverse section performed without complication on 07/26/2022) Weight / BMI Weight Weight: 81.7 kg Body Mass Index (BMI) 35.2 ABG / Lab / Microbiology Data Result Diagrams: 07/27/22 05:48 Laboratory: Laboratory Results - last 24 hr 07/26/22 09:55: WBC 8.4, RBC 3.63 L, Hgb 11.7 L, Hct 35.1 L, MCV 96.7, MCH 32.2 H, MCHC 33.3, RDW Std Deviation 49.4 H, RDW Coeff of Ella 13.9, Plt Count 231, MPV 10.4, Immature Gran % (Auto) 1.000 H, Neut % (Auto) 62.9, Lymph % (Auto) 28.3, [place] % (Auto) 5.6, Eos % (Auto) 2.0, Baso % (Auto) 0.2, Absolute Neuts (auto) 5.3, Absolute Lymphs (auto) 2.37, Nucleated RBC % 0 07/26/22 09:55: Blood Type B POSITIVE, Antibody Screen NEGATIVE 07/26/22 10:28: POC Glucose 65 L 07/26/22 12:33: POC Glucose 123 H 07/26/22 14:29: POC Glucose 126 H 07/27/22 05:38: POC Glucose 77 07/27/22 05:48: WBC 8.5, RBC 3.06 L, Hgb 9.9 L, Hct 30.0 L, MCV 98.0, MCH 32.4 H , MCHC 33.0, RDW Std Deviation 50.2 H, RDW Coeff of Ella 14.2, Plt Count 172, MPV 9.9 Meaningful Use Info Meaningful Use Diagnoses (Choose all that apply): None applicable Discharge Plan Admission Admit Date/Time: 07/26/22 09:30 Primary Reason for Your Visit: Repeat Attending Provider: Long Jackson Primary Care Provider: Manuel Noland Discharge Orders/Prescriptions Prescriptions: New oxycodone 5 MG tablet 5 mg PO Q8H PRN (Reason: severe pain) 7 Days Qty: 10 0RF Continued Prenatabs FA 1 tab PO DAILY ferrous sulfate 325 MG tablet 45 mg PO QHS Rx Instructions: MON, WED, FRI Discontinued aspirin 81 MG tablet,chewable 81 mg PO DAILY@0800 Novolin 70-30 FlexPen U-100 pen injector 16 units IJ QHS Referrals / Follow Up: Manuel Noland MD [Primary Care Provider] - Disposition Disposition (needs filled in before D/C Order can be placed): Home, Self Care
[2022-07-27] MEDS: Senna/Docusate Sodium 1 Tablet PO (10:23)
[2022-07-27 11:41] VITALS: BP 98/66; PULSE 80; RESP 16; TEMP 36.9; O2SAT 97
[2022-07-27] MEDS: Prenatal Vits Tablet 1 TABLET PO (11:45)
[2022-07-27] MEDS: Ibuprofen 600 MG Tablet PO (14:42)
[2022-07-27 16:41] VITALS: BP 118/63; PULSE 84; RESP 16; TEMP 37.2; O2SAT 96
--- NOTE | 2022-07-27 17:22 | NURSING ---
Reviewed and agreed with Mayra GUADALUPE charting.
== END 2022-07-27 18:10 | disposition home or self-care (01) | DRG 788 ==
PROVIDERS: Admitting Provider Obstetrics & Gynecology; PCP Psychiatry & Neurology Vascular Neurology; Referring Provider Obstetrics & Gynecology; Visit Provider Obstetrics & Gynecology
PROC: 10D00Z1 Extraction of Products of Conception, Low, Open Approach (ICD-10-PCS; CPT 59514; principal; 2022-07-26 11:45)
DX: O34.211 Maternal care for low transverse scar from previous cesarean delivery (principal); O24.429 Gestational diabetes mellitus in childbirth, unspecified control; O32.1XX0 Maternal care for breech presentation, not applicable or unspecified; Z79.82 Long term (current) use of aspirin; Z37.0 Single live birth; Z3A.39 39 weeks gestation of pregnancy
CPT/HCPCS: 59025; 59050; 82962; 85025; 85027; 86850; 86900; 86901; 99218; 99251; J7120; A4216; G0378; G0463

== ENCOUNTER → 2022-10-26 | Outpatient (CLI) | payer OTHER, SELFPAY ==
[2022-10-26 11:22] LABS: Glucose 89 mg/dL (74-106)
== END | disposition home or self-care (01) ==
LOC: LAB 09:28
PROVIDERS: PCP Psychiatry & Neurology Vascular Neurology; Referring Provider Obstetrics & Gynecology; Visit Provider Obstetrics & Gynecology
DX: Z86.39 Personal history of other endocrine, nutritional and metabolic disease (principal)
CPT/HCPCS: 36415; 82947; 83036

== ENCOUNTER 2023-09-24 04:03 | Observation (INO) | payer OTHER, SELFPAY ==
[2023-09-24] VITALS (23 sets, daily range): BP systolic 106–138; BP diastolic 68–89; PULSE 44–89; RESP 16–18; TEMP 36.2–37; O2SAT 95–100; BMI 31.1
[2023-09-24] MEDS: Ondansetron 4 MG/2 ML Vial IV (04:10)
--- NOTE | 2023-09-24 04:11 | EDS_ITS ---
HPI HPI - GI History of Present Illness Chief Complaint: Abd Pain Detail of Chief Complaint: Right upper quadrant abdominal pain that radiates through to her back assoc Informant: patient Abdominal Pain/Flank Pain Onset: Yesterday (Approximately 2200) Context: Sudden Onset Timing: Continuous and Waxes and wanes Quality: Aching and Cramping Location: RUQ Current Severity: Moderate Maximum Severity: Severe Worsened by: Nothing Relieved by: Nothing; Not Relieved By Antacids, Food or Remaining Still Nausea/Vomiting/Emesis GI Symptom: Positive for Nausea; Negative for Vomiting Diarrhea/Melena/Hematochezia GI Symptom: Negative for Diarrhea, Melena or Hematochezia Associated Symptoms Associated Symptoms: Negative for Dysuria, Frequency, Hematuria or Urgency Narrative Narrative: Patient is a 43-year-old woman who presents with crampy right upper quadrant pain that radiates to the intrascapular area 3 hours after having pizza. She had 2 prior episodes in the last year. There is a family history cholelithiasis. Past surgical history of and extraction of wisdom teeth. Patient did take Mylanta with no improvement. She denies black or maroon-colored stool. She denies history of renal or ureterolithiasis. She denies dysuria, frequency, urgency or hematuria. She denies chest discomfort. Denies dyspnea, dyspnea on exertion or cough. There is no history of trauma. She has not noted a rash. Prior similar symptoms: Yes Recent Illness/Hospitalization: No PFSH PFSH Medical History Advanced maternal age (AMA) in Gestational diabetes Gestational diabetes History of in vitro fertilization History of loss of consciousness Infertility macrosomia Seasonal allergies Staph infection Tinea corporis Allergy/AdvReac Type Severity Reaction Status Date / Time adhesive tape Allergy Unknown Verified 09/24/23 04:04 Family History Other Epilepsy Hypertension Skin cancer Surgical History H/O wisdom tooth extraction Hx of section Status post repeat low transverse section Social History (Updated 09/24/23 @ 04:[address] Ag Villa MD) household members: spouse and children Smoking Status: Never smoker alcohol intake: never ROS ROS ED Constitutional Constitutional ED: Denies chills, fever(s), subjective, sweats or weight loss Cardiovascular Cardiovascular: Denies chest pain or palpitations Respiratory/Chest Respiratory/Chest: Denies cough, dyspnea or dyspnea on exertion Gastrointestinal Gastrointestinal: Reports abdominal pain and nausea; Denies constipation, diarrhea, melena or vomiting Genitourinary Genitourinary ED: Denies dysuria, hematuria or urinary frequency Musculoskeletal Musculoskeletal: Reports back pain; Denies arthralgias, myalgias or neck pain Integumentary Denies rash Hematologic/Lymphatic Hematologic/Lymphatic: Denies easy bleeding or easy bruising EXAM Physical Exam Const Vital Signs: 09/24/23 04:04 Temperature 97.9 F Temperature Source Temporal Pulse Rate 89 Respiratory Rate 16 Blood Pressure 138/83 H Blood Pressure Mean 101 Pulse Ox 98 Oxygen Delivery Method Room Air Positive well nourished, well developed and obese Constitutional Narrative: Patient appears uncomfortable. She is fair skinned. General Appearance ED: well developed; Negative for pallor Nutritional Appearance: obese HEENT Reports moist mucous membranes normocephalic and atraumatic Eyes PERRL and EOMs intact bilaterally General Eye ED: Negative for scleral icterus Neck no lymphadenopathy, supple and no JVD Resp normal respiratory effort and clear to auscultation bilaterally Cardio regular rate, regular rhythm, S1 normal heart sound, S2 normal heart sound and no murmurs GI non-distended and no masses; Negative for non-tender Auscultation: hypoactive bowel sounds Palpation: soft, tender epigastric and RUQ and rebound tenderness present other (Clinical Stanford sign.); Negative for guarding, rigid, hepatomegaly, splenomegaly, hernia, mass or pulsatile mass Back/Spine no CVA tenderness Extremity full ROM Neuro CN's II-XII intact bilaterally and moves all extremities Sensorium / Orientation: alert Psych mental status grossly normal and thought process normal Skin no wounds General Skin Exam: Negative for jaundice or pallor MDM MDM MDM Narrative Medical decision making narrative: With right upper quadrant pain radiating through the back with a clinical Stanford sign concern patient has biliary colic, acute cholecystitis versus 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 Doubt GERD. Doubt peptic ulcer disease. Doubt lower right lower lobe pneumonia. Unlikely atypical presentation for obstructing ureterolithiasis will obtain CBC to assess white count differential. Hepatic panel and lipase to evaluate for elevated transaminases and pancreatitis. UA to assess for blood. Patient was medicated with Zofran for nausea and ketorolac for her abdominal pain radiating through to her back History & Record Review Additional record(s) reviewed:: Prior inpatient record (Notes for and delivery were reviewed. 2021 in 2019. Patient did have gestational diabetes.), Prior ED visit (Sinusitis and finger laceration) and Prior labs Lab Data Attestation: I reviewed the patient's lab results. Lab results narrative: CBC is unremarkable. Labs: Laboratory Results - last 24 hr 09/24/23 04:10 WBC 9.6 RBC 4.14 L Hgb 12.5 Hct 38.4 MCV 92.8 MCH 30.2 MCHC 32.6 RDW Std Deviation 41.6 RDW Coeff of Ella 12.2 Plt Count 356 MPV 9.1 Immature Gran % (Auto) 0.400 Neut % (Auto) 77.0 H Lymph % (Auto) 14.2 L [place] % (Auto) 6.4 Eos % (Auto) 1.6 Baso % (Auto) 0.4 Absolute Neuts (auto) 7.4 Absolute Lymphs (auto) 1.36 Nucleated RBC % 0 Total Bilirubin 0.50 Direct Bilirubin 0.22 AST 287 H ALT 161 H Alkaline Phosphatase 328 H Total Protein 7.4 Albumin 3.8 Globulin 3.6 Lipase 56 Radiography Diagnostic Testing: Clinical Impression(s) from Imaging Studies Gallbladder Ultrasound 09/24/23 04:54 IMPRESSION: undefined Patient has cholelithiasis with acute cholecystitis per radiology read. There is thickening of the gallbladder wall. There appears to be pericholecystic fluid. In light of this finding Dr. Tang who is on for surgery was paged. Management Discussion w/another healthcare provider: Outreach Director (Spoke with Dr. Tang. He requested Zosyn, EKG and test. He will be in to see patient at 0730.) Treatment and Re-Evaluation :: Patient was reevaluated. Patient's pain decreased by 50% to 3. Patient still appears uncomfortable. Because of elevated AST ALT and alkaline phosphatase ultrasound was ordered. Also will medicate with morphine. Patient was informed that Dr. Merida see her within the next hour. Plan is surgery after his 9:00 case. Discharge Plan Dx/Rx/DC Orders Clinical Impression: Elevated BP without diagnosis of hypertension, Cholelithiasis with acute cholecystitis Disposition Disposition: Acute Care Hospital [facility]
[2023-09-24] MEDS: Ketorolac 15 MG/ML Vial IV ×2 (04:12→14:43)
[2023-09-24 04:15] LABS: Absolute Lymphocyte Count 1.36 X10^3/uL (0.83-4.51); Absolute Neutrophil Count 7.4 X10^3/uL (2.0-7.7); Basophil# 0.04 X10^3/uL; Basophil% 0.4 % (0-1); Eosinophil# 0.15 X10^3/uL; Eosinophils% 1.6 % (0-5); Hematocrit 38.4 % (37-47); Hemoglobin 12.5 g/dL (12.0-15.0); Lymphocyte # 1.36 X10^3/ul (0.83-4.51); Lymphocyte % 14.2 % (19-41); Mean Corp Hgb Conc 32.6 g/dL (32-36); Mean Corpuscular Hgb 30.2 pg (27.0-32.0); Mean Corpuscular Volume 92.8 fL (81-99); Mean Platelet Vol. 9.1 fl (6.2-12.0); Monocyte# 0.61 X10^3/uL; Monocyte% 6.4 % (0-10); NRBC Flagged by Analyzer 0 % (0-5); Neutrophil # 7.38 X10^3/uL (2.7-7.7); Platelet Count 356 K/mm3 (150-450); RBC Distribution Width CV 12.2 % (11.6-14.6); RBC Distribution Width SD 41.6 fl (35.1-43.9); Red Blood Count 4.14 M/mm3 (4.2-5.4); White Blood Count 9.6 K/mm3 (4.4-11.0)
--- OUTSIDE RECORDS SUMMARY | 2023-09-24 04:28 | XMS RPT_ITS | CCD ---
Author Name Unknown Address [address] 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 Apprentice Name Role Phone Micky Frederick MD Primary Care Provider BERTRAM QUINTANA Attending Unavailable KELLI ARNETT Referring Unavailable MICKY FREDERICK Primary Care Unavailable BERTRAM QUINTANA Attending Unavailable MICKY FREDERICK Primary Care Unavailable BERTRAM QUINTANA Attending Unavailable BERTRAM QUINTANA Referring Unavailable MICKY FREDERICK Primary Care Unavailable BERTRAM QUINTANA Attending Unavailable MICKY FREDERICK Primary Care Unavailable Allergies Allergy Classification Reported Allergen(s) Allergy Type Date of Onset Reaction(s) Facility (20 sources) Adhesive agent; Translations: [ADHESIVE] Drug Allergy 06-03-2021 Unknown Medications Completed/Discontinued Medications Medication Drug Class(es) Dates Sig (Normalized) Sig (Original) amoxicillin 500 mg / clavulanate 125 mg oral tablet (4 sources) Penicillin-class Antibacterial Start: 07-02-2022 End: 07-15-2022 amoxicillin-clavul anic acid (AUGMENTIN) 500-125 mg per tablet aspirin 81 mg delayed release oral tablet (20 sources) Platelet Aggregation Inhibitor, Nonsteroidal Anti-inflammatory Drug Start: 12-21-2021 End: 07-22-2022 take 1 tablet by mouth once daily aspirin, enteric coated (ASPIRIN, ENTERIC COATED) 81 mg EC tablet Take 1 tablet by mouth once daily. Start at 12 weeks. 0 12/21/2021 07/22/2022 Discontinued Problems Active Problems Problem Classification Problem Date Documented Da te Episodic/Chronic Diabetes or abnormal glucose tolerance complicating ; childbirth; or the puerperium (20 sources) History of gestational diabetes mellitus; Translations: [Personal history of gestational diabetes] Onset: 06-22-2021 06-22-2021 Episodic Immunizations and screening for infectious disease (1 source) Vaccination needed; Translations: [Encounter for immunization] Episodic Other complications of (1 source) Obesity complicating , second trimester; Translations: [Obesity complicating , childbirth, or the puerperium, antepartum condition or complication] Chronic Other complications of (1 source) Anemia during - baby not yet delivered; Translations: [Anemia complicating , unspecified trimester] Chronic Other complications of (19 sources) Anemia of ; Translations: [Anemia complicating , unspecified trimester] Onset: 05-09-2022 05-09-2022 Chronic Other and delivery including normal (2 sources) Early stage of ; Translations: [Encounter for supervision of normal , unspecified, unspecified trimester] Episodic Other screening for suspected conditions (not mental disorders or infectious disease) (20 sources) Patient encounter status; Translations: [Encounter for screening for diabetes mellitus] Onset: 06-22-2021 06-22-2021 Episodic Residual codes; unclassified (1 source) Gestation period, 12 weeks; Translations: [12 weeks gestation of ] Episodic Residual codes; unclassified (1 source) Gestation period, 16 weeks; Translations: [16 weeks gestation of ] Episodic Residual codes; unclassified (2 sources) Gestation period, 19 weeks; Translations: [19 weeks gestation of ] Episodic Residual codes; unclassified (1 source) Gestation period, 24 weeks; Translations: [24 weeks gestation of ] Episodic Residual codes; unclassified (1 source) Gestation period, 28 weeks; Translations: [28 weeks gestation of ] Episodic Residual codes; unclassified (3 sources) Gestation period, 30 weeks; Translations: [30 weeks gestation of ] Episodic Residual codes; unclassified (2 sources) Gestation period, 32 weeks; Translations: [32 weeks gestation of ] Episodic Residual codes; unclassified (1 source) Gestation period, 34 weeks; Translations: [34 weeks gestation of ] Episodic Residual codes; unclassified (2 sources) Gestation period, 36 weeks; Translations: [36 weeks gestation of ] Episodic Residual codes; unclassified (1 source) Gestation period, 37 weeks; Translations: [37 weeks gestation of ] Episodic Residual codes; unclassified (1 source) Gestation period, 38 weeks; Translations: [38 weeks gestation of ] Episodic Past or Other Problems Problem Classification Problem Date Documented Da te Episodic/Chronic Other complications of (20 sources) ; Translations: [Supervision of with history of infertility, unspecified trimester] Onset: 12-09-2021 Episodic Other complications of (20 sources) Multigravida of advanced maternal age; Translations: [Supervision of elderly multigravida, unspecified trimester] Onset: 11-13-2018 Episodic Other complications of (20 sources) History of delivery of macrosomal ; Translations: [Supervision of with other poor reproductive or obstetric history, unspecified trimester] Onset: 12-09-2021 Episodic Results Test Name Value Interpretation Reference Range Facil ity Vital Signs Date Time Vital Sign Value Performing Clinician Opal ballard 09-06-2022 09:00-0500 Body weight 72.12 kg Bertram Quintana MD Work Phone: 09-06-2022 09:00-0500 Diastolic blood pressure 70 mm[Hg] Bertram Quintana MD Work Phone: 09-06-2022 09:00-0500 Systolic blood pressure 98 mm[Hg] Bertram Quintana MD Work Phone: 07-22-2022 10:54-0500 Body weight 80.88 kg Bertram Quintana MD Work Phone: 07-22-2022 10:54-0500 Diastolic blood pressure 62 mm[Hg] Bertram Quintana MD Work Phone: 07-22-2022 10:54-0500 Heart rate 81 /min Bertram Quintana MD Work Phone: 07-22-2022 10:54-0500 SaO2% (BldA) [Mass fraction] 100 % Bertram Quintana MD Work Phone: 07-22-2022 10:54-0500 Systolic blood pressure 98 mm[Hg] Bertram Quintana MD Work Phone: 07-15-2022 09:04-0500 Body height 152.4 cm Bertram Quintana MD Work Phone: 07-15-2022 09:04-0500 Body weight 80.74 kg Bertram Quintana MD Work Phone: 07-15-2022 09:04-0500 Diastolic blood pressure 62 mm[Hg] Bertram Quintana MD Work Phone: 07-15-2022 09:04-0500 Systolic blood pressure 118 mm[Hg] Bertram Quintana MD Work Phone: 07-06-2022 08:17-0500 Body weight 78.93 kg Kelli Arnett MD Work Phone: 07-06-2022 08:17-0500 Diastolic blood pressure 72 mm[Hg] Kelli Arnett MD Work Phone: 07-06-2022 08:17-0500 Systolic blood pressure 114 mm[Hg] Kelli Arnett MD Work Phone: 06-23-2022 13:56-0400 Body weight 79.83 kg Angie Plotts [employer]AD[employer] 9 [employer]RU 12 VISITING TEACHER.CNM Work Phone: 06-23-2022 13:56-0400 Diastolic blood pressure 88 mm[Hg] Angie Plotts [employer]AD[employer] 9 THRU 12 VISITING TEACHER.CNM Work Phone: 06-23-2022 13:56-0400 Systolic blood pressure 128 mm[Hg] Angie Plotts GRADES 9 THRU 12 VISITING TEACHER.CNM Work Phone: 06-10-2022 13:26-0400 Body weight 78.93 kg Angie Plotts GRADES 9 THRU 12 VISITING TEACHER.CNM Work Phone: 06-10-2022 13:26-0400 Diastolic blood pressure 66 mm[Hg] Angie Plotts [employer]ADES 9 THRU 12 VISITING TEACHER.CNM Work Phone: 06-10-2022 13:26-0400 Systolic blood pressure 102 mm[Hg] Angie Plotts [employer]ADES 9 THRU 12 VISITING TEACHER.CNM Work Phone: 05-25-2022 13:19-0400 Body weight 78.83 kg Bere Mccauley MD Work Phone: 05-25-2022 13:19-0400 Diastolic blood pressure 74 mm[Hg] Bere Mccauley MD Work Phone: 05-25-2022 13:19-0400 Systolic blood pressure 110 mm[Hg] Bere Mccauley MD Work Phone: 05-12-2022 08:39-0400 Body weight 77.66 kg Bere Mccauley MD Work Phone: 05-12-2022 08:39-0400 Diastolic blood pressure 62 mm[Hg] Bere Mccauley MD Work Phone: 05-12-2022 08:39-0400 Systolic blood pressure 100 mm[Hg] Bere Mccauley MD Work Phone: 04-12-2022 08:35-0400 Body weight 77.11 kg Kelli Arnett MD Work Phone: 04-12-2022 08:35-0400 Diastolic blood pressure 62 mm[Hg] Kelli Arnett MD Work Phone: 04-12-2022 08:35-0400 Systolic blood pressure 108 mm[Hg] Kelli Arnett MD Work Phone: 03-11-2022 14:50-0400 Body weight 74.39 kg Angie Padilla [employer] 9 [employer]RU 12 VISITING TEACHER.CNM Work Phone: 03-11-2022 14:50-0400 Diastolic blood pressure 60 mm[Hg] Angie Plotts [employer] 9 THRU 12 VISITING TEACHER.CNM Work Phone: 03-11-2022 14:50-0400 Systolic blood pressure 110 mm[Hg] Angie Plotts GRADES 9 THRU 12 VISITING TEACHER.CNM Work Phone: 02-17-2022 16:35-0400 Body weight 73.48 kg Angie Padilla [employer]ADES 9 THRU 12 VISITING TEACHER.CNM Work Phone: 02-17-2022 16:35-0400 Diastolic blood pressure 74 mm[Hg] Angie Padilla [employer]AD[employer] 9 THRU 12 VISITING TEACHER.CNM Work Phone: 02-17-2022 16:35-0400 Systolic blood pressure 120 mm[Hg] Angie Padilla [employer]ADES 9 THRU 12 VISITING TEACHER.CNM Work Phone: 01-18-2022 15:08-0400 Body weight 73.03 kg Hansel Farr MD Work Phone: 01-18-2022 15:08-0400 Diastolic blood pressure 74 mm[Hg] Hansel Farr MD Work Phone: 01-18-2022 15:08-0400 Systolic blood pressure 120 mm[Hg] Hansel Farr MD Work Phone: 12-21-2021 10:03-0400 Body height 151 cm Bertram Quintana MD Work Phone: 12-21-2021 10:03-0400 Body weight 73.21 kg Bertram Quintana MD Work Phone: 12-21-2021 10:03-0400 Diastolic blood pressure 72 mm[Hg] Bertram Quintana MD Work Phone: 12-21-2021 10:03-0400 Systolic blood pressure 118 mm[Hg] Bertram Quintana MD Work Phone: Encounters Encounter Date Encounter Type Care Provider Facility Start: 07-05-2023 ambulatory Micky owens MD Work Phone: [facility] [place] Start: 06-26-2023 ambulatory Bertram Bentley Work Phone: OB/Gynecology Procedures Date Procedure Procedure Detail Performing Clinician Start: 07-22-2022 URINE OB DIP B/O Bertram Quintana MD Work Phone: Start: 07-15-2022 URINE OB DIP B/O Bertram Quintana MD Work Phone: Start: 07-06-2022 URINE OB DIP B/O Mckenna Arnett MD Work Phone: Start: 07-06-2022 Us preg uterus after 1st trimest 08/28 gestation Angie Padilla GRADES 9 THRU 12 VISITING TEACHER.CNM Work Phone: Start: 06-23-2022 URINE OB DIP B/O Solrito Padilla GRADES 9 THRU 12 VISITING TEACHER.CNM Work Phone: Start: 06-10-2022 URINE OB DIP B/O Bere ritter MD Work Phone: Start: 06-10-2022 Us preg uterus after 1st trimest 08/28 gestation Bere Mccauley MD Work Phone: Start: 05-25-2022 URINE OB DIP B/O Bere ritter MD Work Phone: Start: 05-12-2022 URINE OB DIP B/O Bere ritter MD Work Phone: Start: 04-12-2022 URINE OB DIP B/O Mckenna Arnett MD Work Phone: Start: 03-11-2022 Us preg uterus after 1st trimest 08/28 gestation Bertram Quintana MD Work Phone: Start: 02-17-2022 URINE OB DIP B/O Flor Padilla [employer]ADES 9 THRU 12 VISITING TEACHER.CNM Work Phone: Start: 01-18-2022 URINE OB DIP B/O Bertram Quintana MD Work Phone: Start: 01-18-2022 Us nuchal translucency gestation Bertram Quintana MD Work Phone: Start: 12-23-2021 CBCDIF (EXTERNAL) [facility] P rovider Start: 12-23-2021 Hemoglobin A1c/Hemoglobin.total in Blood [facility] Provider H/O: section History of delivery, currently Bertram Quintana MD Work Phone: H/O: section History of delivery, currently Angie Padilla [employer] 9 [employer]RU 12 VISITING TEACHER.CNM Work Phone: Plan of Treatment Date Care Activity Detail Author Start: 05-12-2032 Urine microalbumin profile Start: 04-09-2029 Urine microalbumin profile DTAP,TDAP,TD (3 - Td or Tdap) Start: 09-06-2027 HPV TESTING HPV TESTING Start: 09-06-2027 PAP TESTING PAP TESTING Start: 07-18-2024 HPV TESTING HPV TESTING Start: 07-18-2024 PAP TESTING PAP TESTING Start: 04-28-2023 Covid-19 Vaccine () Covid-19 Vaccine () Start: 04-28-2023 Influenza vaccination Influenza Vaccine (#1) [facility] Start: 08-28-2022 DEPRESSION ASSESSMENT DEPRESSION ASSESSMENT Start: 2022 Mammography Start: 06-13-2022 End: 06-13-2023 OBSTETRIC ULTRASOUND WHI OBSTETRIC ULTRASOUND I Anc Imaging Routine GDM, class A2 Antepartum multigravida of advanced maternal age Expected: 06/13/2022, Expires: 06/13/2023 [facility] Work Phone: Immunizations Immunization Date Immunization Notes Care Provider [facility] 05-27-2022 influenza virus vaccine, unspecified formulation Bertram Quintana MD Work Phone: 05-12-2022 tetanus toxoid, redu osman diphtheria toxoid, and acellular pertussis vaccine, adsorbed Bere Mccauley MD Work Phone: 04-09-2019 tetanus toxoid, redu osman diphtheria toxoid, and acellular pertussis vaccine, adsorbed Argenis Dyer ANCELMO.CNM Work Phone: 10-04-2016 tetanus toxoid, redu osman diphtheria toxoid, and acellular pertussis vaccine, adsorbed Argenis Dyer ANCELMO.CNM Work Phone: Work Phone: Payers Date Payer Category Payer Private Health Insurance [facility] Kenn [facility] [employer] [id number] 2022-Present [phone] [address] [place] [address] PPO [id number] 2019 Unknown MMO MMO [employer] [id number] 2019-Present [address] [place] [address] PPO [id number] 2019 Unknown MMO MMO [employer]PA [id number] 2019-Present [address] [place] [address] PPO [id number] 2019 Unknown [id number] Social History Date Type Detail Facility Start: 05-12-2022 Tobacco smoking stat us [facility] Never smoked tobacco Start: 06-22-2021 End: 09-06-2022 Alcohol intake Current drinker of alcohol (finding) Start: 05-10-2016 History SDOH Alcohol Comment Rarely, not while Start: 1980 Sex Assigned At Not on file [facility] Start: 11-19-2021 End: 07-15-2022 Exposure to SARS-CoV-2 (event) Not sure Start: 12-09-2021 Education 17 Start: 11-07-2021 Start: 05-12-2022 Tobacco use and exposure Smoke less tobacco non-user Start: 09-06-2022 End: 09-10-2022 History of Social function Start: 09-06-2022 End: 09-10-2022 Tobacco use panel National Score (1-10 0), lower number is lower risk 53 Medical Equipment Procedure Code Equipment Code Equipment Origin al Text Equipment Identifier Dates Start: 05-09-2022 End: 09-06-2022 Goals Date Patient Goal Desired Activity /State Clinical Notes 04-24-2019 to 07-05-2023 Telephone Encounter - Lexie Richmond RN - 06/23/2023 2:20 PM EDTTelephone Encounter - Bertram Quintana MD - 06/23/2023 11:04 AM EDTTelephone Encounter - Danya Rueda RN - 06/22/2023 8:30 AM EDT Note Date & Type Note Facility 07-05-2023 Note Patient Outreach (IN [facility]) ZAINAB SANTIAGO ([id number]) 1980 F Date Time Provider Department 07/05/23 MICKY FREDERICK During your visit today, we recorded the following information about you: Allergies As of Date: 07/05/2023 Noted Allergy Reaction ADHESIVE 06/03/2021 16 - Unknown Date Reviewed: 09/06/2022 Reviewed by: Bertram Quintana MD - Fully Assessed Visit Diagnosis:Encounter for screening mammogram for breast cancer [Z12.31] Order(s):[facility] SCREENING [[id number]] Order #: [id number] FUTURE Prescriptions as of 07/10/2023 - Ferrous Sulfate 142 mg (45 mg iron) TbER Take by mouth. - multivitamin (CLASSIC ) 28 mg iron- 800 mcg tab(s) Take 1 tablet by mouth once daily. - CHOLECALCIFEROL, VITAMIN D3, ORAL Take by mouth as directed. Problem List As Of Date 07/05/2023 Noted Resolved Infertility counseling [Z31.69] 02/17/2015 10/24/2015 Female infertility [N97.9] 09/24/2015 12/27/2016 resulting from assisted reproductive *05/10/2016 02/15/2017 Patient requested diagnostic testing [Z01.89] 05/10/2016 10/18/2016 Encounter for supervision of normal first pregn*12/27/2016 02/15/2017 Female infertility [N97.9] 08/01/2018 11/13/2018 Previous section [Z98.891] 11/13/2018 07/18/2019 Dichorionic diamniotic twin , antepart*11/13/2018 07/18/2019 Antepartum multigravida of advanced maternal ag*11/13/2018 08/02/2022 Supervision of other normal [Z34.80] 11/13/2018 12/04/2018 Marginal insertion of umbilical cord affecting *03/29/2019 07/18/2019 Antepartum anemia [O99.019] 04/10/2019 07/18/2019 Abnormal glucose in , antepartum [O99.*04/10/2019 07/18/2019 Diet controlled gestational diabetes mellitus (*04/16/2019 07/18/2019 Polyhydramnios in third trimester [O40.3XX0] 04/24/2019 07/18/2019 Well adult exam [Z00.00] 06/22/2021 History of gestational diabetes [Z86.32] 06/22/2021 12/21/2021 Screening for diabetes mellitus [Z13.1] 06/22/2021 09/06/2022 with history of infertility [O09.00] 12/09/2021 09/06/2022 History of gestational diabetes in prior pregna*12/09/2021 08/02/2022 with history of section, ant*12/09/2021 08/02/2022 History of macrosomia in infant in prior pregna*12/09/2021 08/02/2022 Insulin controlled gestational diabetes mellitu*05/09/2022 08/02/2022 Anemia in [O99.019] 05/09/2022 08/02/2022 Encounter Status:Closed by MARGOTH STARKEY on 07/10/23 [facility] 06-23-2023 Miscellaneous Notes Formattin g of this note might be different from the original. Form signed by provider and faxed. Lexie Richmond RN Noted & will sign Bertram Quintana MD Received a fax from patient needing her Healthy Living Form signed by JAMES for her employer at [employer]. Patient last seen 08/2022 and has her annual exam with JAMES on 09/07/23. Form to JAMES to sign. Danya Rueda RN documented in this encounter 10-26-2022 Note HNO ID: [id number] Author: Danya Rueda RN Service: ? Author Type: ? Type: Progress Notes Filed: 10/26/2022 2:47 PM Note Text: Received lab results from [facility] [employer] - Please review. Scan on 10/26/2022 1:53 PM by External Provider: Miscellaneous Lab [facility] 10-26-2022 History of Presen t illness Narrative Received lab results from [facility] - Please review. Scan on 10/26/2022 1:53 PM by External Provider: Miscellaneous Lab documented in this encounter 09-06-2022 Note HNO ID: [id number] Author: Bertram Quintana MD Service: ? Author Type: Physician Type: Progress Notes Filed: 09/06/2022 9:38 AM Note Text: VISIT Obstetric History T2 L4 SAB1 IAB0 Ectopic0 Multiple1 Live Births4 Name of Baby 1: Erika Lofton Date: 01/05/17 GA: 41w4d Delivery: , Low Transverse Apgar1: 5 Apgar5: 8 Living: Living Name of Baby 2: Not recorded Date: 02/22/18 GA: Not recorded Delivery: Not recorded Apgar1: Not recorded Apgar5: Not recorded Living: Not recorded Name of Baby 3A: Regina Date: 05/30/19 GA: 35w3d Delivery: , Low Transverse Apgar1: 7 Apgar5: 9 Living: Living Name of Baby 3B: Alejandro Date: 05/30/19 GA: 35w3d Delivery: , Low Transverse Apgar1: 6 Apgar5: 8 Living: Living Name of Baby 4: Kapil Date: 07/26/22 GA: 39w2d Delivery: , Low Transverse Apgar1: 8 Apgar5: 9 Living: Living Zainab Santiago is a 42 year old year old here for visit. Delivery Summary: ROS/ Recovery: Feeding: Breast feeding problems: None Menses since delivery: none Menstrual pattern prior to : Regular periods [place] since delivery: Not resumed Depression: denies symptoms of depression. OB Depression and Anxiety Screening- This Encounter (since 09/05/2022) Over the past 2 weeks have you felt down, depressed, or hopeless? Negative Over the past two weeks, have you felt little interest or pleasure in doing things?? Negative Feeling nervous, anxious or on edge 0-Not at all Not being able to stop or control worrying 0-Not al all Anxiety Pre-Screening Total (If >/= 3 additional questions will be reviewed) 0 Emotional support: Yes Bowel symptoms: Negative for abdominal discomfort, blood in stools or black stools and change in bowel habits Abdomen: She reports no incisional redness, tenderness, erythema Bladder symptoms: No dysuria, gross hematuria, urinary frequency, urinary urgency, or incontinence Other issues: None Last Pap: today PAST MEDICAL HISTORY Diagnosis Date Antepartum anemia 04/10/2019 Diet controlled gestational diabetes mellitus (GDM) in third trimester 04/16/2019 infertility Infertility, female PAST SURGICAL HISTORY Procedure Laterality Date DELIVERY ONLY 01/05/2017 DELIVERY ONLY 05/30/2019 RC/S DI/di twins, low transverse DELIVERY ONLY 07/26/2022 [facility] IVF PACKAGE UNSPECIFIED ORAL SURGERY PROCEDURE, BY REPORT [place] teeth extracted FAMILY HISTORY Problem Relation Age of Onset Hypertension Mother Ulcerative Colitis Mother Hypertension Father Allergies Father other (Limbic Encephilitis) Father other (Epilepsy) Father No Known Problems Sister No Known Problems Brother No Known Problems Brother Cancer Maternal Grandmother multiple myeloma Cancer Maternal Grandfather Prostate cancer Genitourinary () Maternal Grandfather On dialysis COPD Paternal Grandmother Hypertension Paternal Grandmother Heart Paternal Grandmother Breast Cancer Paternal Aunt Asthma Paternal Aunt Paternal side of family other (pcos) Paternal Aunt No Known Problems Son No Known Problems Daughter No Known Problems Daughter Social History Tobacco Use Smoking status: Never Smokeless tobacco: Never Vaping Use Vaping Use: Never used Substance Use Topics Alcohol use: Yes Comment: Rarely, not while Drug use: No PHYSICAL EXAMINATION: BP 98/70 Wt 159 lb (72.1kg) LMP 10/24/2021 GENERAL: pleasant, female in no apparent distress HEENT: Normocephalic, atraumatic, mucus membranes moist, and no lesions NECK: Supple, full range of motion, no adenopathy, and thyroid normal DERMATOLOGY: Normal, without lesions, non-icteric, and non-hirsute BREAST: soft, non-tender, symmetric, no dominant mass, normal nipple-areolar complex, no lymphadenopathy, and no nipple discharge CHEST: Normal inspiratory effort ABDOMEN: soft, non-tender, and no masses. INCISION: No incisional redness, swelling, or drainage PELVIC: external genitalia normal, normal Bartholin's glands, urethra, [place]'s glands, no vulvar lesions, no cervical lesions, good vaginal support, physiologic discharge present, normal appearing perineal body and perianal region BIMANUAL: uterus normal size, shape and consistency, no adnexal masses, and non-tender NEURO: alert and oriented x3,exam grossly non-focal EXTREMITIES: normal ASSESSMENT AND PLAN: 42 year old status post CS with normal course. Contraception plan: vasectomy Follow up: RTC for annual exams and PRN H/o GDM - PP screening ordered at [facility] Bertram Quintana MD [facility] 09-06-2022 History of Presen t illness Narrative VISIT Obstetric History T2 L4 SAB1 IAB0 Ectopic0 Multiple1 Live Births4 Name of Baby 1: Erika Lofton Date: 01/05/17 GA: 41w4d Delivery: , Low Transverse Apgar1: 5 Apgar5: 8 Living: Living Name of Baby 2: Not recorded Date: 02/22/18 GA: Not recorded Delivery: Not recorded Apgar1: Not recorded Apgar5: Not recorded Living: Not recorded Name of Baby 3A: Regina Date: 05/30/19 GA: 35w3d Delivery: , Low Transverse Apgar1: 7 Apgar5: 9 Living: Living Name of Baby 3B: Alejandro Date: 05/30/19 GA: 35w3d Delivery: , Low Transverse Apgar1: 6 Apgar5: 8 Living: Living Name of Baby 4: Kapil Date: 07/26/22 GA: 39w2d Delivery: , Low Transverse Apgar1: 8 Apgar5: 9 Living: Living Zainab Santiago is a 42 year old year old here for visit. Delivery Summary: ROS/ Recovery: Feeding: Breast feeding problems: None Menses since delivery: none Menstrual pattern prior to : Regular periods [place] since delivery: Not resumed Depression: denies symptoms of depression. OB Depression and Anxiety Screening- This Encounter (since 09/05/2022) Over the past 2 weeks have you felt down, depressed, or hopeless? Negative Over the past two weeks, have you felt little interest or pleasure in doing things? Negative Feeling nervous, anxious or on edge 0-Not at all Not being able to stop or control worrying 0-Not al all Anxiety Pre-Screening Total (If >/= 3 additional questions will be reviewed) 0 Emotional support: Yes Bowel symptoms: Negative for abdominal discomfort, blood in stools or black stools and change in bowel habits Abdomen: She reports no incisional redness, tenderness, erythema Bladder symptoms: No dysuria, gross hematuria, urinary frequency, urinary urgency, or incontinence Other issues: None Last Pap: today PAST MEDICAL HISTORY Diagnosis Date Antepartum anemia 04/10/2019 Diet controlled gestational diabetes mellitus (GDM) in third trimester 04/16/2019 infertility Infertility, female PAST SURGICAL HISTORY Procedure Laterality Date DELIVERY ONLY 01/05/2017 DELIVERY ONLY 05/30/2019 RC/S DI/di twins, low transverse DELIVERY ONLY 07/26/2022 [facility] IVF PACKAGE UNSPECIFIED ORAL SURGERY PROCEDURE, BY REPORT [place] teeth extracted FAMILY HISTORY Problem Relation Age of Onset Hypertension Mother Ulcerative Colitis Mother Hypertension Father Allergies Father other (Limbic Encephilitis) Father other (Epilepsy) Father No Known Problems Sister No Known Problems Brother No Known Problems Brother Cancer Maternal Grandmother multiple myeloma Cancer Maternal Grandfather Prostate cancer Genitourinary () Maternal Grandfather On dialysis COPD Paternal Grandmother Hypertension Paternal Grandmother Heart Paternal Grandmother Breast Cancer Paternal Aunt Asthma Paternal Aunt Paternal side of family other (pcos) Paternal Aunt No Known Problems Son No Known Problems Daughter No Known Problems Daughter Social History Tobacco Use Smoking status: Never Smokeless tobacco: Never Vaping Use Vaping Use: Never used Substance Use Topics Alcohol use: Yes Comment: Rarely, not while Drug use: No PHYSICAL EXAMINATION: BP 98/70 Wt 159 lb (72.1kg) LMP 10/24/2021 GENERAL: pleasant, female in no apparent distress HEENT: Normocephalic, atraumatic, mucus membranes moist, and no lesions NECK: Supple, full range of motion, no adenopathy, and thyroid normal DERMATOLOGY: Normal, without lesions, non-icteric, and non-hirsute BREAST: soft, non-tender, symmetric, no dominant mass, normal nipple-areolar complex, no lymphadenopathy, and no nipple discharge CHEST: Normal inspiratory effort ABDOMEN: soft, non-tender, and no masses. INCISION: No incisional redness, swelling, or drainage PELVIC: external genitalia normal, normal Bartholin's glands, urethra, [place]'s glands, no vulvar lesions, no cervical lesions, good vaginal support, physiologic discharge present, normal appearing perineal body and perianal region BIMANUAL: uterus normal size, shape and consistency, no adnexal masses, and non-tender NEURO: alert and oriented x3,exam grossly non-focal EXTREMITIES: normal ASSESSMENT AND PLAN: 42 year old status post CS with normal course. Contraception plan: vasectomy Follow up: RTC for annual exams and PRN H/o GDM - PP screening ordered at [facility] Bertram Quintana MD documented in this encounter 08-09-2022 Miscellaneous Notes Formattin g of this note might be different from the original. FMLA paperwork completed, faxed to employer , scanned into EMR and filed in [employer] suite. Bernarda Henderson LPN FMLA return to work forms completed and placed on providers desk for signature. Bernarda Henderson LPN documented in this encounter 08-02-2022 Note HNO ID: [id number] Author: Bertram Quintana MD Service: ? Author Type: Physician Type: Progress Notes Filed: 08/02/2022 3:02 PM Note Text: EARLY VISIT Obstetric History T2 L4 SAB1 IAB0 Ectopic0 Multiple1 Live Births4 Name of Baby 1: Erika Lofton Date: 01/05/17 GA: 41w4d Delivery: , Low Transverse Apgar1: 5 Apgar5: 8 Living: Living Name of Baby 2: Not recorded Date: 02/22/18 GA: Not recorded Delivery: Not recorded Apgar1: Not recorded Apgar5: Not recorded Living: Not recorded Name of Baby 3A: Regina Date: 05/30/19 GA: 35w3d Delivery: , Low Transverse Apgar1: 7 Apgar5: 9 Living: Living Name of Baby 3B: Alejandro Date: 05/30/19 GA: 35w3d Delivery: , Low Transverse Apgar1: 6 Apgar5: 8 Living: Living Name of Baby 4: Kapil Date: 07/26/22 GA: 39w2d Delivery: , Low Transverse Apgar1: 8 Apgar5: 9 Living: Living Zainab Santiago is a 42 year old here for 1 week visit. Delivery Summary: ROS: General: Denies any fever or chills Hypertension Screening: Headache? Ye - intermittent AND mild. Was it successfully treated with Tylenol? yes Visual Changes? No Epigastric Pain? No Increased Swelling? Yes Taking any BP medications at home? No If applicable, monitoring BP at home? (If Yes, include results) No Mood: normal Depression: denies symptoms of depression. OB Depression and Anxiety Screening- This Encounter (since 08/01/2022) Over the past 2 weeks have you felt down, depressed, or hopeless? Negative Over the past two weeks, have you felt little interest or pleasure in doing things?? Negative Feeling nervous, anxious or on edge 0-Not at all Not being able to stop or control worrying 0-Not al all Anxiety Pre-Screening Total (If >/= 3 additional questions will be reviewed) 0 Feeding: Breast feeding problems: None Bladder: No dysuria, gross hematuria, urinary frequency, urinary urgency, or incontinence Bowel symptoms: Negative for abdominal discomfort, blood in stools or black stools and change in bowel habits Abdomen: She reports no incisional redness, tenderness, erythema Bleeding: light flow Bottom and Perineum: No issues PHYSICAL EXAMINATION: BP 122/66 Wt 164 lb 6.4 oz (74.6 kg) LMP 10/24/2021 Yes BMI 32.11 kg/m? General: pleasant,female in no apparent distress, AANDO x 3. Skin warm and intact. Breast: Deferred Abdomen: soft, non-tender, and no masses /Incision: No incisional redness, swelling, or drainage Pelvic: Deferred Bimanual: Deferred ASSESSMENT AND PLAN: 42 year old status post CS with normal course. Contraception plan: undecided . Reinforced 6-week pelvic rest. Encouraged condom usage should patient deviate. Education: resources provided - see MA/RN note Follow up: Follow-up with provider for 6 week visit and as needed Medical Decision Making: Medical Decision Making Level: 1 - N/A Bertram Quintana MD [facility] 07-28-2022 Miscellaneous Notes Formattin g of this note might be different from the original. [facility] paperwork completed, faxed to employer, scanned into EMR and filed in [employer] suite. Bernarda Henderson LPN [facility] paperwork completed and placed on providers desk for signature. Bernarda Henderson LPN Received [facility] paperwork. Pt had c/s today. Will reach out to patient via [employer] for dates of leave. Bernarda Henderson LPN documented in this encounter 07-28-2022 Note Patient Outreach (IN [facility]) ZAINAB SANTIAGO ([id number]) 1980 F Date Time Provider Department 07/28/22 MICKY FREDERICK During your visit today, we recorded the following information about you: Allergies As of Date: 07/28/2022 Noted Allergy Reaction ADHESIVE 06/03/2021 16 - Unknown Date Reviewed: 07/22/2022 Reviewed by: Bertram Quintana MD - Fully Assessed Visit Diagnosis:Encounter for screening mammogram for breast cancer [Z12.31] Order(s):[facility] SCREENING [[id number]] Order #: [id number] FUTURE Prescriptions as of 08/01/2022 - insulin NPH human (NOVOLIN N FLEXPEN) 100 unit/mL (3 mL) injection pen Inject 16 Units subcutaneously daily at bedtime. - insulin needles, DISPOSABLE, 31 gauge x 5/16 1 Each daily at bedtime. - Ferrous Sulfate 142 mg (45 mg iron) TbER Take by mouth. - blood sugar diagnostic test strip 1 Strip four times daily. Use as instructed - Lancets lancets 1 Each four times daily. Use as instructed - Urine Glucose-Ketones Test (KETO-DIASTIX) strp 1 Strip four times daily. - multivitamin (CLASSIC ) 28 mg iron- 800 mcg tab(s) Take 1 tablet by mouth once daily. - CHOLECALCIFEROL, VITAMIN D3, ORAL Take by mouth as directed. Problem List As Of Date 07/28/2022 Noted Resolved Infertility counseling [Z31.69] 02/17/2015 10/24/2015 Female infertility [N97.9] 09/24/2015 12/27/2016 resulting from assisted reproductive *05/10/2016 02/15/2017 Patient requested diagnostic testing [Z01.89] 05/10/2016 10/18/2016 Encounter for supervision of normal first pregn*12/27/2016 02/15/2017 Female infertility [N97.9] 08/01/2018 11/13/2018 Previous section [Z98.891] 11/13/2018 07/18/2019 Dichorionic diamniotic twin , antepart*11/13/2018 07/18/2019 Antepartum multigravida of advanced maternal ag*11/13/2018 Supervision of other normal [Z34.80] 11/13/2018 12/04/2018 Marginal insertion of umbilical cord affecting *03/29/2019 07/18/2019 Antepartum anemia [O99.019] 04/10/2019 07/18/2019 Abnormal glucose in , antepartum [O99.*04/10/2019 07/18/2019 Diet controlled gestational diabetes mellitus (*04/16/2019 07/18/2019 Polyhydramnios in third trimester [O40.3XX0] 04/24/2019 07/18/2019 Well adult exam [Z00.00] 06/22/2021 History of gestational diabetes [Z86.32] 06/22/2021 12/21/2021 Screening for diabetes mellitus [Z13.1] 06/22/2021 with history of infertility [O09.00] 12/09/2021 History of gestational diabetes in prior pregna*12/09/2021 with history of section, ant*12/09/2021 History of macrosomia in infant in prior pregna*12/09/2021 Insulin controlled gestational diabetes mellitu*05/09/2022 Anemia in [O99.019] 05/09/2022 Encounter Status:Closed by [place] on 08/01/22 [facility] 07-26-2022 Note HNO ID: [id number] Author: Comfort Claros RN Service: ? Author Type: ? Type: Progress Notes Filed: 07/26/2022 3:25 PM Note Text: Patient delivered via by Dr. Quintana on 07/26/22 at [facility]. See OB history. Comfort Claros RN [facility] 07-26-2022 History of Presen t illness Narrative Patient delivered via by Dr. Quintana on 07/26/22 at [facility]. See OB history. Comfort Claros RN documented in this encounter 07-22-2022 Miscellaneous Notes Formattin g of this note might be different from the original. KJ - No VB/LOF/ctxs. Reports good FM. A&P: Pre-op for repeat today. Informed consent signed today. GDM - BS overall normal per patient. Continue NPH at bedtime. Reviewed labor & FM precautions Bertram Quintana MD documented in this encounter 07-22-2022 Instructions Christine Higgins Ma - 07/22/2022 10:49 AM EST SEQUENTIAL SCREENINGS The offers sequential screenings for women who are interested in screenings for chromosomal abnormalities and certain defects during a . The sequential screen combines ultrasound and blood tests to determine the risk of chromosomal abnormalities, including Down's Syndrome (Trisomy 21) and Trisomy 18, as well as open neural tube defects including spina bifida. Ultrasound examination is performed between 11 weeks and 13 weeks gestational age. Blood tests are drawn after the ultrasound and again later in the between 15 and 21 weeks gestational age. Please let your physician know if you are interested in this testing. It will require an appointment with our bacteriology technician. This is not an ultrasound performed by a physician in our office during a routine visit. SIGNS AND SYMPTOMS OF LABOR 1. Contractions every 10 minutes or more often 2. Clear, pink, or brownish fluid (water) leaking from vagina 3. Feeling that baby is pushing down, pressure 4. Low, dull backache 5. Cramps that feel like a period 6. Cramps with or without diarrhea If you notice any of the above symptoms, contact our office at [phone] and ask to speak with a nurse. After hours, you can call doctors registry at [phone] OR call [facility] at [phone] and ask to have the doctor art sales consultant paged. If you consider this an emergency, dial 9-6- or go to your nearest emergency department. NEED HELP? Are you dealing with a violent or abusive relationship? Are you a victim of rape or sexual assult? Call [facility] ([place]) 24 hour Crisis Hotline: 853.214.6487 or 006-782-8807. MANUAL Your Guide to a Healthy manual is now on-line. Visit [email or web address] to download your free copy documented in this encounter 07-15-2022 Miscellaneous Notes Formattin g of this note might be different from the original. KJ - VB No. LOF No. CTXS No. Movement: present. Other c/o: Yes: Other: still has itching all over body. Started after augmentin and a viral infection. Reports BS normal. Medication list reviewed. Physical Exam See Flow Sheet Gen: no accute distress, well appearing Abd: soft, nontender, gravid A/P 37w5d Estimated Date of Delivery: 07/31/22 Labs: LFT's & bile acids ordered at [facility] to exclude cholestasis. Suspect itching is viral related. GDM - BS normal, continue NPH at bedtime Anemia - encouraged Fe & Regular PNV use Labor precautions reviewed, Kick counts reviewed. MOD - repeat Bertram Quintana MD documented in this encounter 07-15-2022 Instructions Christine Higgins Ma - 07/15/2022 8:55 AM EST SEQUENTIAL SCREENINGS The offers sequential screenings for women who are interested in screenings for chromosomal abnormalities and certain defects during a . The sequential screen combines ultrasound and blood tests to determine the risk of chromosomal abnormalities, including Down's Syndrome (Trisomy 21) and Trisomy 18, as well as open neural tube defects including spina bifida. Ultrasound examination is performed between 11 weeks and 13 weeks gestational age. Blood tests are drawn after the ultrasound and again later in the between 15 and 21 weeks gestational age. Please let your physician know if you are interested in this testing. It will require an appointment with our bacteriology technician. This is not an ultrasound performed by a physician in our office during a routine visit. SIGNS AND SYMPTOMS OF LABOR 1. Contractions every 10 minutes or more often 2. Clear, pink, or brownish fluid (water) leaking from vagina 3. Feeling that baby is pushing down, pressure 4. Low, dull backache 5. Cramps that feel like a period 6. Cramps with or without diarrhea If you notice any of the above symptoms, contact our office at [phone] and ask to speak with a nurse. After hours, you can call [facility] at [phone] OR call [facility] at [phone] and ask to have the doctor art sales consultant paged. If you consider this an emergency, dial 9-- or go to your nearest emergency department. NEED HELP? Are you dealing with a violent or abusive relationship? Are you a victim of rape or sexual assult? Call [facility] ([place]) 24 hour Crisis Hotline: 997.736.2802 or 833-583-9271. MANUAL Your Guide to a Healthy manual is now on-line. Visit [email or web address] to download your free copy documented in this encounter 07-11-2022 Miscellaneous Notes Formattin g of this note might be different from the original. Spoke with charge nurse Cyndi on L&D. Cyndi said to have patient call and ask to speak with charge nurse instead of pocket secretary assembler. Patient notified and will call today to schedule. Lexie Richmond RN I don't know. Usually sees KJ. I told her she didn't need one last week b/c had BPP but don't know why they won't schedule her. Fax new order is fine. Thanks. Kelli Arnett MD Pt calling and stated that she is having weekly NST at [facility], pt called this am and stated that she tried to call and schedule this for tomorrow and the L&D pocket secretary assembler stated that we need to call to given permission to schedule this. Was an order already sent over? I printed off the order, refaxed it and then contacted L&D. Bernarda Henderson LPN documented in this encounter 07-06-2022 Miscellaneous Notes Formattin g of this note might be different from the original. RR- VB No. LOF No. CTXS No. Movement: present. Other c/o: some pruritis w/o rash. Medication list reviewed. Physical Exam See Flow Sheet Abd: soft, nontender, gravid Ext: edema: 2+ A/P 36w3d Estimated Date of Delivery: 07/31/22 GBS today plans repeat c/s and tubal f/u in 1 week or prn GDMA2- bs log reviewed, excellent control Kelli Arnett M.D. documented in this encounter 07-06-2022 Instructions Charis Echavarria In - 07/06/2022 8:01 AM EST SEQUENTIAL SCREENINGS The offers sequential screenings for women who are interested in screenings for chromosomal abnormalities and certain defects during a . The sequential screen combines ultrasound and blood tests to determine the risk of chromosomal abnormalities, including Down's Syndrome (Trisomy 21) and Trisomy 18, as well as open neural tube defects including spina bifida. Ultrasound examination is performed between 11 weeks and 13 weeks gestational age. Blood tests are drawn after the ultrasound and again later in the between 15 and 21 weeks gestational age. Please let your physician know if you are interested in this testing. It will require an appointment with our bacteriology technician. This is not an ultrasound performed by a physician in our office during a routine visit. SIGNS AND SYMPTOMS OF LABOR 1. Contractions every 10 minutes or more often 2. Clear, pink, or brownish fluid (water) leaking from vagina 3. Feeling that baby is pushing down, pressure 4. Low, dull backache 5. Cramps that feel like a period 6. Cramps with or without diarrhea If you notice any of the above symptoms, contact our office at [phone] and ask to speak with a nurse. After hours, you can call doctors registry at [phone] OR call [facility] at [phone] and ask to have the doctor art sales consultant paged. If you consider this an emergency, dial 9- or go to your nearest emergency department. NEED HELP? Are you dealing with a violent or abusive relationship? Are you a victim of rape or sexual assult? Call [facility] ([place]) 24 hour Crisis Hotline: 230.599.8681 or 206-211-6994. MANUAL Your Guide to a Healthy manual is now on-line. Visit [email or web address] to download your free copy documented in this encounter 06-27-2022 Miscellaneous Notes Formattin g of this note might be different from the original. Called and spoke with Patsy the charge nurse today on L&D. Patsy is going to call patient and get weekly NST's scheduled. Lexie Richmond RN I did fax order and updated episode to L&D on 06/23/22. I spoke to charge nurse that day that patient was going to be calling to schedule these herself because she was a [facility] employee. Even added on the fax cover sheet that patient was going to be calling to schedule weekly NSTs herself. Comfort Claros RN Patient 35w1d needs weekly NST's. Patient was told she could do them at [facility] because she works there. Patient called them and tried to set them up, but was told that our office needs to set them up. Patient last seen 06/23 and NST done on that day. Does order need to be faxed to L&D for NST's? Lexie Richmond RN documented in this encounter 06-23-2022 History of Presen t illness Narrative NST SUMMARY PROVIDER ASSESSMENT AND INTERPRETATION Zainab Santiago is a 41 year old female, , who is at 34w4d with an CHHAYA of 07/31/2022, by Last Menstrual Period dating method. Indications for NST: AMA, Diabetes - Insulin Controlled, and Obesity Baseline: 130 Variability: Moderate Accelerations: Present 15 X 15 Decelerations: None Contractions: TOCO: None Interpretation: Category I and Reactive SIGNATURE: Angie Padilla APRN.CNM documented in this encounter 06-23-2022 Miscellaneous Notes Formattin g of this note might be different from the original. Zainab Santiago is a 41 year old female who presents at 34w4d for a routine visit and NST. NST reactive, category 1 tracing. Positive movements. Denies any contractions. Feels increased pelvic pressure after working and being on feet all day. Reviewed blood glucose levels. Well controlled. Fastings- 2 out of range and PP- 4 elevated levels due to diet. Denies headache, visual changes, chest pain, shortness of breath, vaginal bleeding, leakage of fluid, or dysuria. Feeling well, no complaints. PTL and kick counts reviewed. RTC in 1 week for NST (completing at [facility] when gets off work) and 2 weeks for follow up growth US and INA. Patient needs to be physician only patient due to GDM A2. Angie Padilla APRN.CNM documented in this encounter 06-23-2022 Instructions Aleah Lockwood Ma - 06/23/2022 1:49 PM EDT SEQUENTIAL SCREENINGS The offers sequential screenings for women who are interested in screenings for chromosomal abnormalities and certain defects during a . The sequential screen combines ultrasound and blood tests to determine the risk of chromosomal abnormalities, including Down's Syndrome (Trisomy 21) and Trisomy 18, as well as open neural tube defects including spina bifida. Ultrasound examination is performed between 11 weeks and 13 weeks gestational age. Blood tests are drawn after the ultrasound and again later in the between 15 and 21 weeks gestational age. Please let your physician know if you are interested in this testing. It will require an appointment with our bacteriology technician. This is not an ultrasound performed by a physician in our office during a routine visit. SIGNS AND SYMPTOMS OF LABOR 1. Contractions every 10 minutes or more often 2. Clear, pink, or brownish fluid (water) leaking from vagina 3. Feeling that baby is pushing down, pressure 4. Low, dull backache 5. Cramps that feel like a period 6. Cramps with or without diarrhea If you notice any of the above symptoms, contact our office at [phone] and ask to speak with a nurse. After hours, you can call doctors registry at [phone] OR call [facility] at [phone] and ask to have the doctor art sales consultant paged. If you consider this an emergency, dial 04-28- or go to your nearest emergency department. NEED HELP? Are you dealing with a violent or abusive relationship? Are you a victim of rape or sexual assult? Call [facility] ([place]) 24 hour Crisis Hotline: 176.638.7876 or 241-475-2463. MANUAL Your Guide to a Healthy manual is now on-line. Visit [email or web address] to download your free copy documented in this encounter 06-13-2022 Miscellaneous Notes Formattin g of this note might be different from the original. Orders signed. Angie Padilla APRN.CNM Please file growth u/s order so patient can schedule. Comfort Claros RN ----- Message from Bere Mccauley MD sent at 06/12/2022 5:44 PM EDT ----- Add to record Needs repeat growth US 4 weeks documented in this encounter 06-13-2022 Miscellaneous Notes Formattin g of this note might be different from the original. 33w1d 05/12 Office note states to repeat CBC at 32 weeks. [facility] lab order to CP to sign. Danya Rueda RN documented in this encounter 06-10-2022 Miscellaneous Notes Formattin g of this note might be different from the original. Zainab Santiago is a 41 year old female who presents at 32w5d for a routine visit. Just completed growth US with BPP. EFW 93%, MARIELLA normal at 16. BPP /. Good movement. Denies any cramps or contractions. Denies headache, visual changes, chest pain, shortness of breath, vaginal bleeding, leakage of fluid, or dysuria. Feeling well, no complaints. Insulin increased on 06/03/22 to 12 units. Reviewed blood sugar logs. Fasting levels- 4 elevated out of 8 readings since insulin dose increased. PP - 1 elevated level due to meal. Will have Dr. Mccauley review readings. PTL precautions reviewed. RTC in 2 weeks for INA or sooner if needed. Angie Padilla APRN.CNM documented in this encounter 06-10-2022 Instructions Aleah Lockwood Ma - 06/10/2022 1:03 PM EDT SEQUENTIAL SCREENINGS The offers sequential screenings for women who are interested in screenings for chromosomal abnormalities and certain defects during a . The sequential screen combines ultrasound and blood tests to determine the risk of chromosomal abnormalities, including Down's Syndrome (Trisomy 21) and Trisomy 18, as well as open neural tube defects including spina bifida. Ultrasound examination is performed between 11 weeks and 13 weeks gestational age. Blood tests are drawn after the ultrasound and again later in the between 15 and 21 weeks gestational age. Please let your physician know if you are interested in this testing. It will require an appointment with our bacteriology technician. This is not an ultrasound performed by a physician in our office during a routine visit. SIGNS AND SYMPTOMS OF LABOR 1. Contractions every 10 minutes or more often 2. Clear, pink, or brownish fluid (water) leaking from vagina 3. Feeling that baby is pushing down, pressure 4. Low, dull backache 5. Cramps that feel like a period 6. Cramps with or without diarrhea If you notice any of the above symptoms, contact our office at [phone] and ask to speak with a nurse. After hours, you can call doctors registry at [phone] OR call [facility] at [phone] and ask to have the doctor art sales consultant paged. If you consider this an emergency, dial 9--1 or go to your nearest emergency department. NEED HELP? Are you dealing with a violent or abusive relationship? Are you a victim of rape or sexual assult? Call [facility] ([place]) 24 hour Crisis Hotline: 336.102.1569 or 644-311-1856. MANUAL Your Guide to a Healthy manual is now on-line. Visit [email or web address] to download your free copy documented in this encounter 06-02-2022 Miscellaneous Notes Formattin g of this note might be different from the original. Patient notified To increase bedtime NPH by 4 units for a total of 12 units at bedtime. Med list udated Typically taken right before going to bed or 8 hours prior to when she wakes up documented in this encounter 05-26-2022 Miscellaneous Notes Formattin g of this note might be different from the original. Orders signed. Angie Padilla APRN.CNM 30w4d Patient needing insulin needles sent to [facility] retail pharmacy. RX for insulin was sent yesterday without needles. Thank you. Requested Prescriptions Pending Prescriptions Disp Refills insulin needles, DISPOSABLE, 31 gauge x 5/16 30 Each 3 Si Each daily at bedtime. Danya Rueda RN documented in this encounter 05-25-2022 Miscellaneous Notes Formattin g of this note might be different from the original. SW- Pt doing well. No ctx, vb, lof. Good FM. GDM: BG log reviewed and starting NPH 8 units at bedtime. Growth US and NST's ordered. Scheduled to get flu shot with work. RTO 2 wks. Bere Mccauley DO documented in this encounter 05-25-2022 Instructions Dori Celeste MA - 05/25/2022 1:13 PM EDT SEQUENTIAL SCREENINGS The offers sequential screenings for women who are interested in screenings for chromosomal abnormalities and certain defects during a . The sequential screen combines ultrasound and blood tests to determine the risk of chromosomal abnormalities, including Down's Syndrome (Trisomy 21) and Trisomy 18, as well as open neural tube defects including spina bifida. Ultrasound examination is performed between 11 weeks and 13 weeks gestational age. Blood tests are drawn after the ultrasound and again later in the between 15 and 21 weeks gestational age. Please let your physician know if you are interested in this testing. It will require an appointment with our bacteriology technician. This is not an ultrasound performed by a physician in our office during a routine visit. SIGNS AND SYMPTOMS OF LABOR 1. Contractions every 10 minutes or more often 2. Clear, pink, or brownish fluid (water) leaking from vagina 3. Feeling that baby is pushing down, pressure 4. Low, dull backache 5. Cramps that feel like a period 6. Cramps with or without diarrhea If you notice any of the above symptoms, contact our office at [phone] and ask to speak with a nurse. After hours, you can call doctors registry at [phone] OR call [facility] at [phone] and ask to have the doctor art sales consultant paged. If you consider this an emergency, dial 9--1 or go to your nearest emergency department. NEED HELP? Are you dealing with a violent or abusive relationship? Are you a victim of rape or sexual assult? Call [facility] ([place]) 24 hour Crisis Hotline: 418.388.1251 or 323-756-8237. MANUAL Your Guide to a Healthy manual is now on-line. Visit [email or web address] to download your free copy documented in this encounter 05-12-2022 Miscellaneous Notes Formattin g of this note might be different from the original. SW- Pt doing well. No pain, vb, lof. Good FM. LARC declined. Still considering sterilization. Tdap today. GDM- Checking BG and log reviewed. 1 elevated fasting and 1 elevated PP. Growth US ~32 wks. Anemia- Cont iron. Recheck CBC ~32 wks. RTO 2 wks. Bere Mccauley DO documented in this encounter 05-12-2022 History of Presen t illness Narrative Patient identified by name and date of . Zainab Santiago presents today for a vaccination of Tdap. Patient denies an allergy to latex: yes Patient denies a severe (life-threatening) allergy to a previous dose of Tdap, DTP, DTaP, DT or Td vaccine. Yes Patient denies history of epilepsy or neurological problems: Yes Patient is afebrile and denies being moderately or severely ill: Yes Patient denies history of Guillain-Elon Syndrome (a severe paralytic illness): Yes Tdap Adacel injection was given without incident. See immunizations for details of immunizations administered today. VIS sheet provided: Yes Provider Bere Mccauley DO was present in office at time of injection. Dori Celeste MA documented in this encounter 05-12-2022 Instructions Dori Celeste MA - 05/12/2022 8:32 AM EDT SEQUENTIAL SCREENINGS The offers sequential screenings for women who are interested in screenings for chromosomal abnormalities and certain defects during a . The sequential screen combines ultrasound and blood tests to determine the risk of chromosomal abnormalities, including Down's Syndrome (Trisomy 21) and Trisomy 18, as well as open neural tube defects including spina bifida. Ultrasound examination is performed between 11 weeks and 13 weeks gestational age. Blood tests are drawn after the ultrasound and again later in the between 15 and 21 weeks gestational age. Please let your physician know if you are interested in this testing. It will require an appointment with our bacteriology technician. This is not an ultrasound performed by a physician in our office during a routine visit. SIGNS AND SYMPTOMS OF LABOR 1. Contractions every 10 minutes or more often 2. Clear, pink, or brownish fluid (water) leaking from vagina 3. Feeling that baby is pushing down, pressure 4. Low, dull backache 5. Cramps that feel like a period 6. Cramps with or without diarrhea If you notice any of the above symptoms, contact our office at [phone] and ask to speak with a nurse. After hours, you can call doctors registry at [phone] OR call [facility] at [phone] and ask to have the doctor art sales consultant paged. If you consider this an emergency, dial 9-1-7 or go to your nearest emergency department. NEED HELP? Are you dealing with a violent or abusive relationship? Are you a victim of rape or sexual assult? Call [facility] ([place]) 24 hour Crisis Hotline: 578.813.8322 or 076-018-7949. MANUAL Your Guide to a Healthy manual is now on-line. Visit [email or web address] to download your free copy documented in this encounter 05-09-2022 Miscellaneous Notes Formattin g of this note might be different from the original. Done Bertram Quintana MD Patient called back and she states she does not need glucometer or any diabetic teaching. Hgb 10.3. Aware to take iron supplement. Please file orders Left message for patient to return phone call. Patient had gestational diabetes in prior . 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 Then we will send to [facility] to file. Also let her know about anemia Needs iron for anemia. GCT is 193 which indicates GDM. Does not need a 3hr. 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 Bertram Quintana MD 28w1d Received CBC and 1 hour glucose results from [facility]. Please review. Results and order for 3 hour glucose test to [facility] to sign if appropriate. Patient does have h/o gestational diabetes with previous . Comfort Claros RN documented in this encounter documented as of this encounter (statuses as of 08/09/2022) 09-12-2022 History of Past illness Narrative* Problem Noted Date Resolved Date Insulin controlled gestation al diabetes mellitus (GDM) in third trimester 05/09/2022 08/02/2022 Anemia in 05/09/2022 08/02/2022 Overview: 05/09/22 - needs repeat CBC in 2-3 weeks - Bertram Quintana MD with history of infertility 12/09/2021 09/06/2022 Overview: 12/09/2021 This is a surprise . Patient has a history of infertility and IVF with her past pregnancies. No reproductive assistance this . TKRN History of gestational diabe kelly in prior , currently 12/09/2021 08/02/2022 Overview: 12/09/2021 Patient has a history of gestational diabetes with her last . Last hemoglobin A1c was done June 2021. Patient will plan on early screening.TKRN with history of section, ante 12/09/2021 08/02/2022 Overview: 12/09/2021 Patient has a history of 2 C-sections. She desires a repeat C- section. Patient declines tubal ligation.Melina Macdonald RN History of macrosomia in inf ant in prior , currently 12/09/2021 08/02/2022 Overview: 12/09/2021 history of previous child's weight 9 pounds 10 ounce.TKRN History of gestational diabetes 06/22/2021 12/21/2021 Screening for diabetes mellitus 06/22/2021 09/06/2022 Polyhydramnios in third trimester 04/24/2019 07/18/2019 Diet controlled gestational diabetes mellitus (GDM) in third trimester 04/16/2019 07/18/2019 Antepartum anemia 04/10/2019 07/18/2019 Overview: 05/21/19 Hgb 11.7 Eleanor Bryant APRN.MANAGER DISCOVERY 04/12/19 Hgb 10.2 Fe sulfate 325 mg daily on Mondays, Wednesdays and Fridays. Repeat CBC in one month. Eleanor Bryant APRN.MANAGER DISCOVERY Abnormal glucose in , antepartum 201807/18/2019 Overview: 04/09/19 1 hr GCT 149. 3 hr GTT ordered. 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 Baby A MARIELLA normal with appearance of marginal cord insertion of the dividing membrane. Baby B MARIELLA mildly increased. Follow up US in 3 weeks for growth and MARIELLA. Argenis Dyer APRN.CNM 11/13/18 - twin by IVF - Bertram Quintana MD Antepartum multigravida of advanced maternal age 0311/13/2018 08/02/2022 Overview: 12/09/2021 Patient is 41 years old. Advanced maternal age discussed. Noninvasive and invasive testing options discussed. Patient desires nuchal ultrasound and materniti 21 test. I have given patient contact information to [employer] to check on insurance coverage. TKRN Supervision of other normal 11/13/2018 12/04/2018 Overview: 11/13/18 - need to discuss CF screening - Bertram Quintana MD Female infertility 08/01/2018 11/13/2018 Overview: Added automatically from request for surgery [id number] Encounter for supervision of normal first in first trimester 12/27/2016 02/15/2017 Overview: Girl on us resulting from ass isted reproductive technology in third trimester 05/10/2016 02/15/2017 Overview: 05/10/2016Pt and her have been attempting for 2 years. She has been seeing Dr Oneil for infertility for about a year. This was a result of IVF. Transfer was done 04/07/2016. TKRN Patient requested diagnostic testing 05/10/2016 10/18/2016 Overview: 05/10/2016Patient desires nuchal ultrasound. She is 7w2d today and her NOB is scheduled 06/08/[address] Ugalde ordered nuchal ultrasound. TKRN Female infertility 09/24/2015 12/27/2016 Infertility counseling 02/17/2015 6 documented as of this encounter (statuses as of 09/06/2022) 09-12-2022 History of Past illness Narrative* Problem Noted Date Resolved Date Insulin controlled gestation al diabetes mellitus (GDM) in third trimester 05/09/2022 08/02/2022 Anemia in 05/09/2022 08/02/2022 Overview: 05/09/22 - needs repeat CBC in 2-3 weeks - Bertram Quintana MD with history of infertility 12/09/2021 09/06/2022 Overview: 12/09/2021 This is a surprise . Patient has a history of infertility and IVF with her past pregnancies. No reproductive assistance this . TKRN History of gestational diabe kelly in prior , currently 12/09/2021 08/02/2022 Overview: 12/09/2021 Patient has a history of gestational diabetes with her last . Last hemoglobin A1c was done June 2021. Patient will plan on early screening.TKRN with history of section, ante 12/09/2021 08/02/2022 Overview: 12/09/2021 Patient has a history of 2 C-sections. She desires a repeat C- section. Patient declines tubal ligation.Melina Macdonald RN History of macrosomia in inf ant in prior , currently 12/09/2021 08/02/2022 Overview: 12/09/2021 history of previous child's weight 9 pounds 10 ounce.TKRN History of gestational diabetes 06/22/2021 12/21/2021 Screening for diabetes mellitus 06/22/2021 09/06/2022 Polyhydramnios in third trimester 04/24/2019 07/18/2019 Diet controlled gestational diabetes mellitus (GDM) in third trimester 04/16/2019 07/18/2019 Antepartum anemia 04/10/2019 07/18/2019 Overview: 05/21/19 Hgb 11.7 Eleanor Bryant APRN.MANAGER DISCOVERY 04/12/19 Hgb 10.2 Fe sulfate 325 mg daily on Mondays, Wednesdays and Fridays. Repeat CBC in one month. Eleanor Bryant APRN.ANGELINA Abnormal glucose in , antepartum 201807/18/2019 Overview: 04/09/19 1 hr GCT 149. 3 hr GTT ordered. 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 Baby A MARIELLA normal with appearance of marginal cord insertion of the dividing membrane. Baby B MARIELLA mildly increased. Follow up US in 3 weeks for growth and MARIELLA. Argenis Dyer APRN.CNM 11/13/18 - twin by IVF - Bertram Quintana MD Antepartum multigravida of advanced maternal age 0311/13/2018 08/02/2022 Overview: 12/09/2021 Patient is 41 years old. Advanced maternal age discussed. Noninvasive and invasive testing options discussed. Patient desires nuchal ultrasound and materniti 21 test. I have given patient contact information to [employer] to check on insurance coverage. TKRN Supervision of other normal 11/13/2018 12/04/2018 Overview: 11/13/18 - need to discuss CF screening - Bertram Quintana MD Female infertility 08/01/2018 11/13/2018 Overview: Added automatically from request for surgery [id number] Encounter for supervision of normal first in first trimester 12/27/2016 02/15/2017 Overview: Girl on us resulting from ass isted reproductive technology in third trimester 05/10/2016 02/15/2017 Overview: 05/10/2016Pt and her have been attempting for 2 years. She has been seeing Dr Oneil for infertility for about a year. This was a result of IVF. Transfer was done 04/07/2016. TKRN Patient requested diagnostic testing 05/10/2016 10/18/2016 Overview: 05/10/2016Patient desires nuchal ultrasound. She is 7w2d today and her NOB is scheduled 06/08/[address] Ugalde ordered nuchal ultrasound. TKRN Female infertility 09/24/2015 12/27/2016 Infertility counseling 02/17/2015 6 documented as of this encounter (statuses as of 10/26/2022) 09-12-2022 History of Past illness Narrative* Problem Noted Date Diagnosed Date Resolved Date Insulin controlled gestation al diabetes mellitus (GDM) in third trimester 05/09/20222021 Anemia in 05/09/2022 08/02/20 Overview: 05/09/22 - needs repeat CBC in 2-3 weeks - Bertram Quintana MD with history of infertility 12/09/2021 09/06/2022 Overview: 12/09/2021 This is a surprise . Patient has a history of infertility and IVF with her past pregnancies. No reproductive assistance this . TKRN History of gestational diabe kelly in prior , currently 12/09/2021 08/02/2022 Overview: 12/09/2021 Patient has a history of gestational diabetes with her last . Last hemoglobin A1c was done June 2021. Patient will plan on early screening.TKRN with history of ce sarean section, antepartum 12/09/2021 08/02/2022 Overview: 12/09/2021 Patient has a history of 2 C-sections. She desires a repeat C- section. Patient declines tubal ligation.Meilna Macdonald RN History of macrosomia in inf ant in prior , currently 12/09/2021 08/02/2022 Overview: 12/09/2021 history of previous child's weight 9 pounds 10 ounce.TKRN History of gestational diabetes 06/22/2021 12/21/2021 Screening for diabetes mellitus 06/22/2021 09/06/2022 Polyhydramnios in third trimester 04/24/2019 07/18/2019 Diet controlled gestational diabetes mellitus (GDM) in third trimester 04/16/2019 07/18/2019 Antepartum anemia 04/10/2019 07/18/2019 Overview: 05/21/19 Hgb 11.7 Eleanor Bryant APRN.MANAGER DISCOVERY 04/12/19 Hgb 10.2 Fe sulfate 325 mg daily on Mondays, Wednesdays and Fridays. Repeat CBC in one month. Eleanor Bryant APRN.MANAGER DISCOVERY Abnormal glucose in , antepartum 04/10/2019 07/18/2019 Overview: 04/09/19 1 hr GCT 149. 3 hr GTT ordered. 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 Baby A MARIELLA normal with appearance of marginal cord insertion of the dividing membrane. Baby B MARIELLA mildly increased. Follow up US in 3 weeks for growth and MARIELLA. Argenis Dyer APRN.CNM 11/13/18 - twin by IVF - Bertram Quintana MD Antepartum multigravida of a dvanced maternal age 0311/13/2018 08/02/2022 Overview: 12/09/2021 Patient is 41 years old. Advanced maternal age discussed. Noninvasive and invasive testing options discussed. Patient desires nuchal ultrasound and materniti 21 test. I have given patient contact information to [employer] to check on insurance coverage. TKRN Supervision of other normal 11/13/2018 12/04/2018 Overview: 11/13/18 - need to discuss CF screening - Bertram Quintana MD Female infertility 08/01/2018 9 Overview: Added automatically from request for surgery [id number] Encounter for supervision of normal first in first trimester 12/27/2016 02/15/2017 Overview: Girl on us resulting from ass isted reproductive technology in third trimester 05/10/2016 02/15/2017 Overview: 05/10/2016Pt and her have been attempting for 2 years. She has been seeing Dr Oneil for infertility for about a year. This was a result of IVF. Transfer was done 04/07/2016. TKRN Patient requested diagnostic testing 05/10/2016 10/18/2016 Overview: 05/10/2016Patient desires nuchal ultrasound. She is 7w2d today and her NOB is scheduled 06/08/[address] Ugalde ordered nuchal ultrasound. TKRN Female infertility 09/24/2015 7 Infertility counseling 02/17/201510/24 documented as of this encounter (statuses as of 06/23/2023) 09-12-2022 History of Past illness Narrative* Problem Noted Date Diagnosed Date Resolved Date Insulin controlled gestation al diabetes mellitus (GDM) in third trimester 05/09/20222021 Anemia in 05/09/2022 08/02/20 Overview: 05/09/22 - needs repeat CBC in 2-3 weeks - Bertram Quintana MD with history of infertility 12/09/2021 09/06/2022 Overview: 12/09/2021 This is a surprise . Patient has a history of infertility and IVF with her past pregnancies. No reproductive assistance this . TKRN History of gestational diabe kelly in prior , currently 12/09/2021 08/02/2022 Overview: 12/09/2021 Patient has a history of gestational diabetes with her last . Last hemoglobin A1c was done June 2021. Patient will plan on early screening.TKRN with history of ce sarean section, antepartum 12/09/2021 08/02/2022 Overview: 12/09/2021 Patient has a history of 2 C-sections. She desires a repeat C- section. Patient declines tubal ligation.Melina Macdonald RN History of macrosomia in inf ant in prior , currently 12/09/2021 08/02/2022 Overview: 12/09/2021 history of previous child's weight 9 pounds 10 ounce.TKRN History of gestational diabetes 06/22/2021 12/21/2021 Screening for diabetes mellitus 06/22/2021 09/06/2022 Polyhydramnios in third trimester 04/24/2019 07/18/2019 Diet controlled gestational diabetes mellitus (GDM) in third trimester 04/16/2019 07/18/2019 Antepartum anemia 04/10/2019 07/18/2019 Overview: 05/21/19 Hgb 11.7 Eleanor Bryant APRN.MANAGER DISCOVERY 04/12/19 Hgb 10.2 Fe sulfate 325 mg daily on Mondays, Wednesdays and Fridays. Repeat CBC in one month. Eleanor Bryant APRN.MANAGER DISCOVERY Abnormal glucose in , antepartum 04/10/2019 07/18/2019 Overview: 04/09/19 1 hr GCT 149. 3 hr GTT ordered. 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 Baby A MARIELLA normal with appearance of marginal cord insertion of the dividing membrane. Baby B MARIELLA mildly increased. Follow up US in 3 weeks for growth and MARIELLA. Argenis Dyer APRN.CNM 11/13/18 - twin by IVF - Bertram Quintana MD Antepartum multigravida of a dvanced maternal age 0311/13/2018 08/02/2022 Overview: 12/09/2021 Patient is 41 years old. Advanced maternal age discussed. Noninvasive and invasive testing options discussed. Patient desires nuchal ultrasound and materniti 21 test. I have given patient contact information to [employer] to check on insurance coverage. TKRN Supervision of other normal 11/13/2018 12/04/2018 Overview: 11/13/18 - need to discuss CF screening - Bertram Quintana MD Female infertility 08/01/2018 9 Overview: Added automatically from request for surgery [id number] Encounter for supervision of normal first in first trimester 12/27/2016 02/15/2017 Overview: Girl on us resulting from ass isted reproductive technology in third trimester 05/10/2016 02/15/2017 Overview: 05/10/2016Pt and her have been attempting for 2 years. She has been seeing Dr Oneil for infertility for about a year. This was a result of IVF. Transfer was done 04/07/2016. TKRN Patient requested diagnostic testing 05/10/2016 10/18/2016 Overview: 05/10/2016Patient desires nuchal ultrasound. She is 7w2d today and her NOB is scheduled 06/08/[address] Ugalde ordered nuchal ultrasound. TKRN Female infertility 09/24/2015 7 Infertility counseling 02/17/201510/24 documented as of this encounter (statuses as of 06/26/2023) 09-12-2022 History of Past illness Narrative* Problem Noted Date Diagnosed Date Resolved Date Insulin controlled gestation al diabetes mellitus (GDM) in third trimester 05/09/20222021 Anemia in 05/09/2022 08/02/20 Overview: 05/09/22 - needs repeat CBC in 2-3 weeks - Bertram Quintana MD with history of infertility 12/09/2021 09/06/2022 Overview: 12/09/2021 This is a surprise . Patient has a history of infertility and IVF with her past pregnancies. No reproductive assistance this . TKRN History of gestational diabe kelly in prior , currently 12/09/2021 08/02/2022 Overview: 12/09/2021 Patient has a history of gestational diabetes with her last . Last hemoglobin A1c was done June 2021. Patient will plan on early screening.TKRN with history of ce sarean section, antepartum 12/09/2021 08/02/2022 Overview: 12/09/2021 Patient has a history of 2 C-sections. She desires a repeat C- section. Patient declines tubal ligation.Melina Macdonald RN History of macrosomia in inf ant in prior , currently 12/09/2021 08/02/2022 Overview: 12/09/2021 history of previous child's weight 9 pounds 10 ounce.TKRN History of gestational diabetes 06/22/2021 12/21/2021 Screening for diabetes mellitus 06/22/2021 09/06/2022 Polyhydramnios in third trimester 04/24/2019 07/18/2019 Diet controlled gestational diabetes mellitus (GDM) in third trimester 04/16/2019 07/18/2019 Antepartum anemia 04/10/2019 07/18/2019 Overview: 05/21/19 Hgb 11.7 Eleanor Bryant APRN.MANAGER DISCOVERY 04/12/19 Hgb 10.2 Fe sulfate 325 mg daily on Mondays, Wednesdays and Fridays. Repeat CBC in one month. Eleanor Bryant APRN.MANAGER DISCOVERY Abnormal glucose in , antepartum 04/10/2019 07/18/2019 Overview: 04/09/19 1 hr GCT 149. 3 hr GTT ordered. 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 Baby A MARIELLA normal with appearance of marginal cord insertion of the dividing membrane. Baby B MARIELLA mildly increased. Follow up US in 3 weeks for growth and MARIELLA. Argenis Dyer APRN.CNM 11/13/18 - twin by IVF - Bertram Quintana MD Antepartum multigravida of a dvanced maternal age 0311/13/2018 08/02/2022 Overview: 12/09/2021 Patient is 41 years old. Advanced maternal age discussed. Noninvasive and invasive testing options discussed. Patient desires nuchal ultrasound and materniti 21 test. I have given patient contact information to [employer] to check on insurance coverage. TKRN Supervision of other normal 11/13/2018 12/04/2018 Overview: 11/13/18 - need to discuss CF screening - Bertram Quintana MD Female infertility 08/01/2018 9 Overview: Added automatically from request for surgery [id number] Encounter for supervision of normal first in first trimester 12/27/2016 02/15/2017 Overview: Girl on us resulting from ass isted reproductive technology in third trimester 05/10/2016 02/15/2017 Overview: 05/10/2016Pt and her have been attempting for 2 years. She has been seeing Dr Oneil for infertility for about a year. This was a result of IVF. Transfer was done 04/07/2016. TKRN Patient requested diagnostic testing 05/10/2016 10/18/2016 Overview: 05/10/2016Patient desires nuchal ultrasound. She is 7w2d today and her NOB is scheduled 06/08/[address] Ugalde ordered nuchal ultrasound. TKRN Female infertility 09/24/2015 7 Infertility counseling 02/17/201510/24 documented as of this encounter (statuses as of 07/10/2023) 08-16-2022 Miscellaneous Notes* Quick Notes - Kelli Arnett MD - 04/12/2022 8:53 AM EDT RR- Doing well. No VB/LOF. Good FM. NO ctxs. Mild edema. Plans repeat c/s. F/u in 4 weeks or prn. 28 week lab slip given, will do at [facility]. Kelli Arnett MD documented in this encounter08-16-2022 Instructions* Patient Instructions* Charis Echavarria In - 04/12/2022 8:33 AM EDT SEQUENTIAL SCREENINGS The offers sequential screenings for women who are interested in screenings for chromosomal abnormalities and certain defects during a . The sequential screen combinesultrasound and blood tests to determine the risk of chromosomal abnormalities, including Down's Syndrome (Trisomy 21) and Trisomy 18, as well as open neural tube defects including spina bifida. Ultrasound examination is performed between 11 weeks and 13 weeks gestational age. Blood tests are drawn after the ultrasound and again later in the between 15 and 21 weeks gestational age. Please let your physician know if you are interested in this testing. It will require an appointment withour bacteriology technician. This is not an ultrasound performed by a physician in our office during a routine visit. SIGNS AND SYMPTOMS OF LABOR 1. Contractions every 10 minutes or more often 2. Clear, pink, or brownish fluid (water) leaking from vagina 3. Feeling that baby is pushing down, pressure 4. Low, dull backache 5. Cramps that feel like a period 6. Cramps with or without diarrhea If you notice any of the above symptoms, contact our office at [phone] and ask to speak with anurse. After hours, you can call doctors registry at [phone] OR call [facility] at [phone] ask to have the doctor art sales consultant paged. If you consider this an emergency, dial 9--1 or go to your nearest emergency department. NEED HELP? Are you dealing with a violent or abusive relationship? Are you a victim of rape or sexual assult? Call [facility] ([place]) 24 hour Crisis Hotline: 306.100.8277 or 193-954-7184. MANUAL Your Guide to a Healthy manual is now on-line. Visit [email or web address] to download your free copy documented in this encounter07-15-2022 History of Present illness Narrative* Dori Fitzgerald MD - 03/11/2022 5:20 PM EDT Patient here for routine anatomy scan. See ultrasound report for details. Dori Fitzgerald MD documented in this encounter07-15-2022 Miscellaneous Notes* Quick Notes - Angie Padilla APRN.CNM - 03/11/2022 3:20 PM EDT Zainab Santiago is a 41 year old female who presents at 19w5d for a routine visit. Just completed anatomy US. Patient had positive quad screen for Downs syndrome but NEGATIVE MaterniT 21. MFM and genetics involved and have discussed with patient. If anatomy scan is normal no further testing will be completed. Started feeling movement. Denies headache, visual changes, chest pain, shortness of breath, vaginal bleeding, leakage of fluid, or dysuria. Feeling well, no complaints. PTL precautionsreviewed. RTC in 4 weeks or sooner if needed. Angie Padilla APRN.CNM documented in this encounter07-15-2022 Instructions* Patient Instructions* Cande Downey MA - 03/11/2022 2:00 PM EDT SEQUENTIAL SCREENINGS The offers sequential screenings for women who are interested in screenings for chromosomal abnormalities and certain defects during a . The sequential screen combinesultrasound and blood tests to determine the risk of chromosomal abnormalities, including Down's Syndrome (Trisomy 21) and Trisomy 18, as well as open neural tube defects including spina bifida. Ultrasound examination is performed between 11 weeks and 13 weeks gestational age. Blood tests are drawn after the ultrasound and again later in the between 15 and 21 weeks gestational age. Please let your physician know if you are interested in this testing. It will require an appointment withour bacteriology technician. This is not an ultrasound performed by a physician in our office during a routine visit. SIGNS AND SYMPTOMS OF LABOR 1. Contractions every 10 minutes or more often 2. Clear, pink, or brownish fluid (water) leaking from vagina 3. Feeling that baby is pushing down, pressure 4. Low, dull backache 5. Cramps that feel like a period 6. Cramps with or without diarrhea If you notice any of the above symptoms, contact our office at [phone] and ask to speak with anurse. After hours, you can call doctors registry at [phone] OR call [facility] at [phone] ask to have the doctor art sales consultant paged. If you consider this an emergency, dial 9-9-8 or go to your nearest emergency department. NEED HELP? Are you dealing with a violent or abusive relationship? Are you a victim of rape or sexual assult? Call [facility] ([place]) 24 hour Crisis Hotline: 636.715.4170 or 452-772-2300. MANUAL Your Guide to a Healthy manual is now on-line. Visit [email or web address] to download your free copy documented in this encounter07-06-2022 Miscellaneous Notes* Telephone Encounter - Cande Bond [facility] - 03/02/2022 2:39 PM EDT Ms. Santiago returned my phone call. Informed her of the results of her quad screen: POSITIVE for Downsyndrome with screening risk of 1:17. Results were WNL for trisomy 18 and ONTD Reviewed Down syndrome in brief as well as quad screening including the sensitivity, false positiverate, and screening modality. Discussed non-specific nature of this screen including reasons for false positives. Results were reviewed in context of her NORMAL NIPT. Reviewed availability of additional diagnostic testing via amniocentesis. Discussed sensitivity, turn around time for results as well as the difference between screening and diagnostic testing. Patient understands the additional testing available but declined given her normal NIPT. Encouraged her to attend her extensive ul trasound as well as a growth ultrasound in the third trimester. Patient agreed on this plan. Cande Bosch CGC * Telephone Encounter - KRYS Chandler - 03/02/2022 1:39 PM EDT Called Ms. Santiago and left a message, stating that I was calling with results to discuss. Asked her to call me back at [phone]. Plan on discussing her abnormal quad screen in relation to her normal NIPT. Cande Bond CGC documented in this encounter06-23-2022 Miscellaneous Notes* Quick Notes - Angie Padilla APRN.CNM - 02/17/2022 4:45 PM EDT Zainab Santiago is a 41 year old female who presents at 16w5d Estimated Date of Delivery: 07/31/22 fora routine visit. No movement felt to date. Denies headache, visual changes, chest pain, shortness of breath, vaginal bleeding, leakage of fluid, or dysuria. Feeling well, no complaints. Will have AFP lab drawn at [facility]. Size equal to dates. PTL/ Bleeding precautions reviewed. RTC in 4 weeks foranatomy US and INA. Angie Padilla APRN.CNM documented in this encounter06-23-2022 Instructions* Patient Instructions* Dori Celeste MA - 02/17/2022 4:31 PM EDT SEQUENTIAL SCREENINGS The offers sequential screenings for women who are interested in screenings for chromosomal abnormalities and certain defects during a . The sequential screen combinesultrasound and blood tests to determine the risk of chromosomal abnormalities, including Down's Syndrome (Trisomy 21) and Trisomy 18, as well as open neural tube defects including spina bifida. Ultrasound examination is performed between 11 weeks and 13 weeks gestational age. Blood tests are drawn after the ultrasound and again later in the between 15 and 21 weeks gestational age. Please let your physician know if you are interested in this testing. It will require an appointment withour bacteriology technician. This is not an ultrasound performed by a physician in our office during a routine visit. SIGNS AND SYMPTOMS OF LABOR 1. Contractions every 10 minutes or more often 2. Clear, pink, or brownish fluid (water) leaking from vagina 3. Feeling that baby is pushing down, pressure 4. Low, dull backache 5. Cramps that feel like a period 6. Cramps with or without diarrhea If you notice any of the above symptoms, contact our office at [phone] and ask to speak with anurse. After hours, you can call doctors registry at [phone] OR call [facility] at [phone] ask to have the doctor art sales consultant paged. If you consider this an emergency, dial 9-9-1 or go to your nearest emergency department. NEED HELP? Are you dealing with a violent or abusive relationship? Are you a victim of rape or sexual assult? Call [facility] ([place]) 24 hour Crisis Hotline: 596.384.9666 or 701-180-4825. MANUAL Your Guide to a Healthy manual is now on-line. Visit [email or web address] to download your free copy documented in this encounter05-31-2022 Miscellaneous Notes* Telephone Encounter - Klarissa Flower RN - 01/25/2022 3:51 PM EDT Called Zainabbartolome Santiago and identified by name and date of . Zainab Santiago was informed of negative Non-Invasive Testing (NIPT) results for Trisomy 21, Trisomy 18 and Trisomy 13. Patient was also notified of the result of no sex chromosome aneuploidy detected. Patient wishes to know sex, which is reported as: male. Reviewed with patient Zainab Santiago that NIPT is considered screening and not diagnostic, so this result greatly reduces, but does not eliminate the chance that the fetus could have trisomy 21, trisomy 18, trisomy 13 or sex chromosome aneuploidy. Zainab Santiago indicated understanding this information. Patient advised to follow up with AFP neural tube defect screening (blood draw) at 16-18 weeks gestation and 18-20 week detailed anatomy ultrasound. Also instructed to follow-up with Primary OB Provider. Klarissa Flower RN documented in this encounter05-24-2022 Miscellaneous Notes* Quick Notes - Bertram Quintana MD - 01/18/2022 4:23 PM EDT KJ - No VB/LOF/ctxs. Denies concerns. A&P: NT with NIPT today Anatomy US ordered MOD - repeat Bertram Quintana MD documented in this encounter05-24-2022 Instructions* Patient Instructions* Christine Higgins Ma - 01/18/2022 3:56 PM EDT SEQUENTIAL SCREENINGS The offers sequential screenings for women who are interested in screenings for chromosomal abnormalities and certain defects during a . The sequential screen combinesultrasound and blood tests to determine the risk of chromosomal abnormalities, including Down's Syndrome (Trisomy 21) and Trisomy 18, as well as open neural tube defects including spina bifida. Ultrasound examination is performed between 11 weeks and 13 weeks gestational age. Blood tests are drawn after the ultrasound and again later in the between 15 and 21 weeks gestational age. Please let your physician know if you are interested in this testing. It will require an appointment withour bacteriology technician. This is not an ultrasound performed by a physician in our office during a routine visit. SIGNS AND SYMPTOMS OF LABOR 1. Contractions every 10 minutes or more often 2. Clear, pink, or brownish fluid (water) leaking from vagina 3. Feeling that baby is pushing down, pressure 4. Low, dull backache 5. Cramps that feel like a period 6. Cramps with or without diarrhea If you notice any of the above symptoms, contact our office at [phone] and ask to speak with anurse. After hours, you can call doctors registry at [phone] OR call [facility] at [phone] ask to have the doctor art sales consultant paged. If you consider this an emergency, dial 91-3 or go to your nearest emergency department. NEED HELP? Are you dealing with a violent or abusive relationship? Are you a victim of rape or sexual assult? Call [facility] ([place]) 24 hour Crisis Hotline: 731.770.4346 or 650-978-0848. MANUAL Your Guide to a Healthy manual is now on-line. Visit [email or web address] to download your free copy documented in this encounter04-26-2022 History of Present illness Narrative* Bertram Quintana MD - 12/21/2021 9:54 AM EDT INITIAL OB ASSESSMENT Obstetric History T1 L3 SAB1 IAB0 Ectopic0 Multiple1 Live Births3 Name of Baby 1: Erika Lofton Date: 01/05/17 GA: 41w4d Delivery: , Low Transverse Apgar1: 5 Apgar5: 8 Living: Living Name of Baby 2: Not recorded Date: 02/22/18 GA: Not recorded Delivery: Not recorded Apgar1: Not recorded Apgar5: Not recorded Living: Not recorded Name of Baby 3A: Regina Date: 05/30/19 GA: 35w3d Delivery: , Low Transverse Apgar1: 7 Apgar5: 9 Living: Living Name of Baby 3B: Alejandro Date: 05/30/19 GA: 35w3d Delivery: , Low Transverse Apgar1: 6 Apgar5: 8 Living: Living Name of Baby 4: Not recorded Date: Not recorded GA: Not recorded Delivery: Not recorded Apgar1: Not recorded Apgar5: Not recorded Living: Not recorded HPI: Zainab Santiago is a 41 year old female here to establish Obstetrical Care. Patient's last menstrual period was 10/24/2021. from OB Dating Form. Complaints: nausea without vomiting was unplanned but accepted. OB History T1 L3 SAB1 IAB0 Ectopic0 Multiple1 Live Births3 Prior : yes x 2 History of 4th degree laceration: No Patient's Risk Screening for delivery: History of abnormal pap: No Prior treatment for cervical dysplasia: none. 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 multivit-min/iron/folic acid/K (ADULTS MULTIVITAMIN ORAL) Take by mouth as directed. (Patient not taking: Reported on 12/09/2021 ) CHOLECALCIFEROL, VITAMIN D3, ORAL Take by mouth as directed. No current facility-administered medications on file prior to visit. Review of Systems: GENERAL: Negative for: Fever or Chills HEENT: Negative for: Headache, Impaired Vision, Ringing in Ears, Nosebleeds NECK: Negative for: Swelling, Pain, Stiffness RESPIRATORY: Negative for: Cough, Shortness of breath, Wheezing GASTROINTESTINAL: Negative for: Heartburn, Constipation, Diarrhea, Blood in stool, Vomiting MUSCULOSKELETAL: Negative for: Muscle or joint pain, stiffness, Joint swelling NEUROLOGIC/PSYCHIATRIC: Negative for: Weakness, Paralysis, Numbness, Tingling, Tremor, Anxiety, Depression, Memory loss SKIN: Negative for: Rash, Itching GENITOURINARY: Negative for: vaginal itching, vaginal discharge, hematuria or dysuria PHYSICAL EXAM: BP 118/72 Ht 4' 11.449 (1.51m) Wt 161 lb 6.4 oz (73.2kg) LMP 10/24/2021 BMI32.11 kg/(m^2). GENERAL: pleasant female in no apparent distress DERMATOLOGY: Normal, without lesions, non-icteric and non-hirsute NECK: Supple, full range of motion, no adenopathy and thyroid normal CHEST: Normal inspiratory effort BREAST: soft, non-tender, symmetric, no dominant mass, normal nipple-areolar complex, no lymphadenopathy and no nipple discharge ABDOMEN: soft, non-tender and no masses NEURO: alert and oriented x3,exam grossly non-focal PELVIS: External genitalia normal without lesions. Perineal body intact. No vaginal or cervical lesions. Cervix closed. Uterus 8 week size. No adnexal masses or tenderness. Clinical Pelvimetry: Pelvimetry clinically assessed as adequate Limited OB ultrasound exam: single intrauterine and positive cardiac activity OB Risk Screening: Completed, positive findings include: Patient will be less than 17 or greater than 34 at the time of Delivery Patient answered 'Yes' they had a prior montano between 20w and 36w6d. ASSESSMENT: 41 year old at 8&2 wks gestational age PLAN: 1) Patient oriented to practice. Discussed nutrition, folic acid supplementation, dietary guidelines, exercise, smoking, alcohol, caffeine, and drug use. Discussed routine OB labs including STD/HIV. Discussed aneuploidy screening options including serum screening and nuchal translucency. 2) History of cesearan section, patient counseled on trial of labor versus repeat cesearan section,patient plans repeat . 3) See problem list Follow up in 4 weeks or sooner prn. Bertram Quintana MD documented in this encounter04-26-2022 Instructions* Patient Instructions* Christine Higgins Ma - 12/21/2021 9:54 AM EDT Please select the following link to access the Your Guide to a Healthy . [email or web address] documented in this encounter04-14-2022 Miscellaneous Notes* Quick Notes - Melina Macdonald RN - 12/09/2021 2:14 PM EDT DISTANCE HEALTH VISIT This Team Access Model visit is a phone encounter. It required patient-provider interaction for themedical decision making as documented below. This is a surprise . Patient has a history ofinfertility and IVF with her past pregnancies. No reproductive assistance this . Patient is 41 years old. Advanced maternal age discussed. Noninvasive and invasive testing options discussed.Patient desires nuchal ultrasound and maternity 21 test. I have given patient contact information to [employer] to check on insurance coverage. Patient has a history of gestational diabetes with her last . Last hemoglobin A1c was done June 2021. Patient will plan on early scree rosalinda. Patient has a history of 2 C-sections. She desires a repeat . Patient has a history of macrosomia in prior . Patient declines tubal ligation.Melina Macdonald RN documented in this encounter04-14-2022 History of Present illness Narrative* Melina Macdonald RN - 12/09/2021 2:13 PM EDT # 1 - Date: [birth year], Sex: Female, Weight: 9 lb 10 oz (4.366 kg), GA: 41w4d, Delivery: , Low Transverse, Apgar1: 5, Apgar5: 8, Living: Living, Comments: kumari, pitocin induction, MSF, FTP, EBL 800cc # 2 - Date: 02/22/18, Sex: None, Weight: None, GA: None, Delivery: None, Apgar1: None, Apgar5: None, Living: None, Comments: None # 3A - Date: 05/30/19, Sex: Female, Weight: 4 lb 14 oz (2.211 kg), GA: 35w3d, Delivery: , Low Transverse, Apgar1: 7, Apgar5: 9, Living: Living, Comments: gestational diabetes, Di/di twins, PPROM,RC/S, EBL 700cc # 3B - Date: 05/30/19, Sex: Male, Weight: 5 lb 9 oz (2.523 kg), GA: 35w3d, Delivery: , LowTransverse, Apgar1: 6, Apgar5: 8, Living: Living, Comments: Di/di twins, AROM, RC/S [place], EBL 700cc # 4 - Date: None, Sex: None, Weight: None, GA: None, Delivery: None, Apgar1: None, Apgar5: None, Living: None, Comments: None documented in this encounter04-04-2022 Miscellaneous Notes* Telephone Encounter - Comfort Claros RN - 11/29/2021 11:36 AM EDT Patient notified. Comfort Claros RN * Telephone Encounter - Bere Mccauley MD - 11/29/2021 11:01 AM EDT HCG quant and progesterone ordered. Recommend calling PCP for RUQ pain * Telephone Encounter - Bernarda Henderson LPN - 11/29/2021 9:10 AM EDT Pt calling and stated that she is having pain in her RUQ. Dull in nature at this time. Over the weekend she felt more bloating, then became intense pain that was around to her back. Pt stated that the pain is dull again this morning. Pt worried that this may be gallbladder related. Pt has not had vaginal bleeding or lower abdominal pain. See below note as well. Bernarda Henderson LPN * Telephone Encounter - Danya Rueda RN - 11/26/2021 8:57 AM EDT LMP 10/24/21 Approximately 4w5d Took a +UPT this morning. Not on any form of contraception. Took a test because she was having mildbreast tenderness and mild nausea. Hx of IVF with her last two pregnancies. Asking if she should have progesterone and HCG levels checked with her history. Danya Rueda RN documented in this encounter10-26-2021 History of Past illness Narrative* Problem Noted Date Resolved Date History of gestational diabetes 06/22/2021 12/21/2021 Polyhydramnios in third trimester 04/24/2019 07/18/2019 Diet controlled gestational diabetes mellitus (GDM) in third trimester 04/16/2019 07/18/2019 Antepartum anemia 04/10/2019 07/18/2019 Overview: 05/21/19 Hgb 11.7 Eleanor Bryant APRN.MANAGER DISCOVERY 04/12/19 Hgb 10.2 Fe sulfate 325 mg daily on Mondays, Wednesdays and Fridays. Repeat CBC in one month. Eleanor Bryant APRN.MANAGER DISCOVERY Abnormal glucose in , antepartum 201807/18/2019 Overview: 04/09/19 1 hr GCT 149. 3 hr GTT ordered. 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 Baby A MARIELLA normal with appearance of marginal cord insertion of the dividing membrane. Baby B MARIELLA mildly increased. Follow up US in 3 weeks for growth and MARIELLA. Argenis Dyer APRN.CNM 11/13/18 - twin by IVF - Bertram Quintana MD Supervision of other normal 11/13/2018 12/04/2018 Overview: 11/13/18 - need to discuss CF screening - Bertram Quintana MD Female infertility 08/01/2018 11/13/2018 Overview: Added automatically from request for surgery [id number] Encounter for supervision of normal first in first trimester 12/27/2016 02/15/2017 Overview: Girl on us resulting from ass isted reproductive technology in third trimester 05/10/2016 02/15/2017 Overview: 05/10/2016Pt and her have been attempting for 2 years. She has been seeing Dr Oneil for infertility for about a year. This was a result of IVF. Transfer was done 04/07/2016. TKRN Patient requested diagnostic testing 05/10/2016 10/18/2016 Overview: 05/10/2016Patient desires nuchal ultrasound. She is 7w2d today and her NOB is scheduled 06/08/[address] Ugalde ordered nuchal ultrasound. TKRN Female infertility 09/24/2015 12/27/2016 Infertility counseling 02/17/2015 6 documented as of this encounter (statuses as of 12/21/2021) 10-26-2021 History of Past illness Narrative* Problem Noted Date Resolved Date History of gestational diabetes 06/22/2021 12/21/2021 Polyhydramnios in third trimester 04/24/2019 07/18/2019 Diet controlled gestational diabetes mellitus (GDM) in third trimester 04/16/2019 07/18/2019 Antepartum anemia 04/10/2019 07/18/2019 Overview: 05/21/19 Hgb 11.7 Eleanor Bryant APRN.MANAGER DISCOVERY 04/12/19 Hgb 10.2 Fe sulfate 325 mg daily on Mondays, Wednesdays and Fridays. Repeat CBC in one month. Eleanor Bryant APRN.MANAGER DISCOVERY Abnormal glucose in , antepartum 201807/18/2019 Overview: 04/09/19 1 hr GCT 149. 3 hr GTT ordered. 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 Baby A MARIELLA normal with appearance of marginal cord insertion of the dividing membrane. Baby B MARIELLA mildly increased. Follow up US in 3 weeks for growth and MARIELLA. Argenis Dyer APRN.CNM 11/13/18 - twin by IVF - Bertram Quintana MD Supervision of other normal 11/13/2018 12/04/2018 Overview: 11/13/18 - need to discuss CF screening - Bertram Quintana MD Female infertility 08/01/2018 11/13/2018 Overview: Added automatically from request for surgery [id number] Encounter for supervision of normal first in first trimester 12/27/2016 02/15/2017 Overview: Girl on us resulting from ass isted reproductive technology in third trimester 05/10/2016 02/15/2017 Overview: 05/10/2016Pt and her have been attempting for 2 years. She has been seeing Dr Oneil for infertility for about a year. This was a result of IVF. Transfer was done 04/07/2016. TKRN Patient requested diagnostic testing 05/10/2016 10/18/2016 Overview: 05/10/2016Patient desires nuchal ultrasound. She is 7w2d today and her NOB is scheduled 06/08/[address] Ugalde ordered nuchal ultrasound. TKRN Female infertility 09/24/2015 12/27/2016 Infertility counseling 02/17/2015 6 documented as of this encounter (statuses as of 12/23/2021) 10-26-2021 History of Past illness Narrative* Problem Noted Date Resolved Date History of gestational diabetes 06/22/2021 12/21/2021 Polyhydramnios in third trimester 04/24/2019 07/18/2019 Diet controlled gestational diabetes mellitus (GDM) in third trimester 04/16/2019 07/18/2019 Antepartum anemia 04/10/2019 07/18/2019 Overview: 05/21/19 Hgb 11.7 Eleanor Bryant APRN.MANAGER DISCOVERY 04/12/19 Hgb 10.2 Fe sulfate 325 mg daily on Mondays, Wednesdays and Fridays. Repeat CBC in one month. Eleanor Bryant APRN.MANAGER DISCOVERY Abnormal glucose in , antepartum 201807/18/2019 Overview: 04/09/19 1 hr GCT 149. 3 hr GTT ordered. 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 Baby A MARIELLA normal with appearance of marginal cord insertion of the dividing membrane. Baby B MARIELLA mildly increased. Follow up US in 3 weeks for growth and MARIELLA. Argenis Dyer APRN.CNM 11/13/18 - twin by IVF - Bertram Quintana MD Supervision of other normal 11/13/2018 12/04/2018 Overview: 11/13/18 - need to discuss CF screening - Bertram Quintana MD Female infertility 08/01/2018 11/13/2018 Overview: Added automatically from request for surgery [id number] Encounter for supervision of normal first in first trimester 12/27/2016 02/15/2017 Overview: Girl on us resulting from ass isted reproductive technology in third trimester 05/10/2016 02/15/2017 Overview: 05/10/2016Pt and her have been attempting for 2 years. She has been seeing Dr Oneil for infertility for about a year. This was a result of IVF. Transfer was done 04/07/2016. TKRN Patient requested diagnostic testing 05/10/2016 10/18/2016 Overview: 05/10/2016Patient desires nuchal ultrasound. She is 7w2d today and her NOB is scheduled 06/08/[address] Ugalde ordered nuchal ultrasound. TKRN Female infertility 09/24/2015 12/27/2016 Infertility counseling 02/17/2015 6 documented as of this encounter (statuses as of 01/18/2022) 10-26-2021 History of Past illness Narrative* Problem Noted Date Resolved Date History of gestational diabetes 06/22/2021 12/21/2021 Polyhydramnios in third trimester 04/24/2019 07/18/2019 Diet controlled gestational diabetes mellitus (GDM) in third trimester 04/16/2019 07/18/2019 Antepartum anemia 04/10/2019 07/18/2019 Overview: 05/21/19 Hgb 11.7 Eleanor Bryant APRN.MANAGER DISCOVERY 04/12/19 Hgb 10.2 Fe sulfate 325 mg daily on Mondays, Wednesdays and Fridays. Repeat CBC in one month. Eleanor Bryant APRN.MANAGER DISCOVERY Abnormal glucose in , antepartum 201807/18/2019 Overview: 04/09/19 1 hr GCT 149. 3 hr GTT ordered. 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 Baby A MARIELLA normal with appearance of marginal cord insertion of the dividing membrane. Baby B MARIELLA mildly increased. Follow up US in 3 weeks for growth and MARIELLA. Argenis Dyer APRN.CNM 11/13/18 - twin by IVF - Bertram Quintana MD Supervision of other normal 11/13/2018 12/04/2018 Overview: 11/13/18 - need to discuss CF screening - Bertram Quintana MD Female infertility 08/01/2018 11/13/2018 Overview: Added automatically from request for surgery [id number] Encounter for supervision of normal first in first trimester 12/27/2016 02/15/2017 Overview: Girl on us resulting from ass isted reproductive technology in third trimester 05/10/2016 02/15/2017 Overview: 05/10/2016Pt and her have been attempting for 2 years. She has been seeing Dr Oneil for infertility for about a year. This was a result of IVF. Transfer was done 04/07/2016. TKRN Patient requested diagnostic testing 05/10/2016 10/18/2016 Overview: 05/10/2016Patient desires nuchal ultrasound. She is 7w2d today and her NOB is scheduled 06/08/[address] Ugalde ordered nuchal ultrasound. TKRN Female infertility 09/24/2015 12/27/2016 Infertility counseling 02/17/2015 6 documented as of this encounter (statuses as of 01/18/2022) 10-26-2021 History of Past illness Narrative* Problem Noted Date Resolved Date History of gestational diabetes 06/22/2021 12/21/2021 Polyhydramnios in third trimester 04/24/2019 07/18/2019 Diet controlled gestational diabetes mellitus (GDM) in third trimester 04/16/2019 07/18/2019 Antepartum anemia 04/10/2019 07/18/2019 Overview: 05/21/19 Hgb 11.7 Eleanor Bryant APRN.MANAGER DISCOVERY 04/12/19 Hgb 10.2 Fe sulfate 325 mg daily on Mondays, Wednesdays and Fridays. Repeat CBC in one month. Eleanor Bryant APRN.MANAGER DISCOVERY Abnormal glucose in , antepartum 201807/18/2019 Overview: 04/09/19 1 hr GCT 149. 3 hr GTT ordered. 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 Baby A MARIELLA normal with appearance of marginal cord insertion of the dividing membrane. Baby B MARIELLA mildly increased. Follow up US in 3 weeks for growth and MARIELLA. Argenis Dyer APRN.CNM 11/13/18 - twin by IVF - Bertram Quintana MD Supervision of other normal 11/13/2018 12/04/2018 Overview: 11/13/18 - need to discuss CF screening - Bertram Quintana MD Female infertility 08/01/2018 11/13/2018 Overview: Added automatically from request for surgery [id number] Encounter for supervision of normal first in first trimester 12/27/2016 02/15/2017 Overview: Girl on us resulting from ass isted reproductive technology in third trimester 05/10/2016 02/15/2017 Overview: 05/10/2016Pt and her have been attempting for 2 years. She has been seeing Dr Oneil for infertility for about a year. This was a result of IVF. Transfer was done 04/07/2016. TKRN Patient requested diagnostic testing 05/10/2016 10/18/2016 Overview: 05/10/2016Patient desires nuchal ultrasound. She is 7w2d today and her NOB is scheduled 06/08/[address] Ugalde ordered nuchal ultrasound. TKRN Female infertility 09/24/2015 12/27/2016 Infertility counseling 02/17/2015 6 documented as of this encounter (statuses as of 01/25/2022) 10-26-2021 History of Past illness Narrative* Problem Noted Date Resolved Date History of gestational diabetes 06/22/2021 12/21/2021 Polyhydramnios in third trimester 04/24/2019 07/18/2019 Diet controlled gestational diabetes mellitus (GDM) in third trimester 04/16/2019 07/18/2019 Antepartum anemia 04/10/2019 07/18/2019 Overview: 05/21/19 Hgb 11.7 Eleanor Bryant APRN.MANAGER DISCOVERY 04/12/19 Hgb 10.2 Fe sulfate 325 mg daily on Mondays, Wednesdays and Fridays. Repeat CBC in one month. Eleanor Bryant APRN.ANGELINA Abnormal glucose in , antepartum 201807/18/2019 Overview: 04/09/19 1 hr GCT 149. 3 hr GTT ordered. 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 Baby A MARIELLA normal with appearance of marginal cord insertion of the dividing membrane. Baby B MARIELLA mildly increased. Follow up US in 3 weeks for growth and MARIELLA. Argenis Dyer APRN.CNM 11/13/18 - twin by IVF - Bertram Quintana MD Supervision of other normal 11/13/2018 12/04/2018 Overview: 11/13/18 - need to discuss CF screening - Bertram Quintana MD Female infertility 08/01/2018 11/13/2018 Overview: Added automatically from request for surgery [id number] Encounter for supervision of normal first in first trimester 12/27/2016 02/15/2017 Overview: Girl on us resulting from ass isted reproductive technology in third trimester 05/10/2016 02/15/2017 Overview: 05/10/2016Pt and her have been attempting for 2 years. She has been seeing Dr Oneil for infertility for about a year. This was a result of IVF. Transfer was done 04/07/2016. TKRN Patient requested diagnostic testing 05/10/2016 10/18/2016 Overview: 05/10/2016Patient desires nuchal ultrasound. She is 7w2d today and her NOB is scheduled 06/08/[address] Ugalde ordered nuchal ultrasound. TKRN Female infertility 09/24/2015 12/27/2016 Infertility counseling 02/17/2015 6 documented as of this encounter (statuses as of 02/18/2022) 10-26-2021 History of Past illness Narrative* Problem Noted Date Resolved Date History of gestational diabetes 06/22/2021 12/21/2021 Polyhydramnios in third trimester 04/24/2019 07/18/2019 Diet controlled gestational diabetes mellitus (GDM) in third trimester 04/16/2019 07/18/2019 Antepartum anemia 04/10/2019 07/18/2019 Overview: 05/21/19 Hgb 11.7 Eleanor Bryant APRN.CNP 04/12/19 Hgb 10.2 Fe sulfate 325 mg daily on Mondays, Wednesdays and Fridays. Repeat CBC in one month. Eleanor Bryant APRN.CNP Abnormal glucose in , antepartum 201807/18/2019 Overview: 04/09/19 1 hr GCT 149. 3 hr GTT ordered. 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 Baby A MARIELLA normal with appearance of marginal cord insertion of the dividing membrane. Baby B MARIELLA mildly increased. Follow up US in 3 weeks for growth and MARIELLA. Argenis Dyer APRN.CNM 11/13/18 - twin by IVF - Bertram Quintana MD Supervision of other normal 11/13/2018 12/04/2018 Overview: 11/13/18 - need to discuss CF screening - Bertram Quintana MD Female infertility 08/01/2018 11/13/2018 Overview: Added automatically from request for surgery [id number] Encounter for supervision of normal first in first trimester 12/27/2016 02/15/2017 Overview: Girl on us resulting from ass isted reproductive technology in third trimester 05/10/2016 02/15/2017 Overview: 05/10/2016Pt and her have been attempting for 2 years. She has been seeing Dr Oneil for infertility for about a year. This was a result of IVF. Transfer was done 04/07/2016. TKRN Patient requested diagnostic testing 05/10/2016 10/18/2016 Overview: 05/10/2016Patient desires nuchal ultrasound. She is 7w2d today and her NOB is scheduled 06/08/[address] Ugalde ordered nuchal ultrasound. TKRN Female infertility 09/24/2015 12/27/2016 Infertility counseling 02/17/2015 6 documented as of this encounter (statuses as of 03/02/2022) 10-26-2021 History of Past illness Narrative* Problem Noted Date Resolved Date History of gestational diabetes 06/22/2021 12/21/2021 Polyhydramnios in third trimester 04/24/2019 07/18/2019 Diet controlled gestational diabetes mellitus (GDM) in third trimester 04/16/2019 07/18/2019 Antepartum anemia 04/10/2019 07/18/2019 Overview: 05/21/19 Hgb 11.7 Eleanor Bryant APRN.MANAGER DISCOVERY 04/12/19 Hgb 10.2 Fe sulfate 325 mg daily on Mondays, Wednesdays and Fridays. Repeat CBC in one month. Eleanor Bryant APRN.ANGELINA Abnormal glucose in , antepartum 201807/18/2019 Overview: 04/09/19 1 hr GCT 149. 3 hr GTT ordered. 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 Baby A MARIELLA normal with appearance of marginal cord insertion of the dividing membrane. Baby B MARIELLA mildly increased. Follow up US in 3 weeks for growth and MARIELLA. Argenis Dyer APRN.CNM 11/13/18 - twin by IVF - Bertram Quintana MD Supervision of other normal 11/13/2018 12/04/2018 Overview: 11/13/18 - need to discuss CF screening - Bertram Quintana MD Female infertility 08/01/2018 11/13/2018 Overview: Added automatically from request for surgery [id number] Encounter for supervision of normal first in first trimester 12/27/2016 02/15/2017 Overview: Girl on us resulting from ass isted reproductive technology in third trimester 05/10/2016 02/15/2017 Overview: 05/10/2016Pt and her have been attempting for 2 years. She has been seeing Dr Oneil for infertility for about a year. This was a result of IVF. Transfer was done 04/07/2016. TKRN Patient requested diagnostic testing 05/10/2016 10/18/2016 Overview: 05/10/2016Patient desires nuchal ultrasound. She is 7w2d today and her NOB is scheduled 06/08/[address] Ugalde ordered nuchal ultrasound. TKRN Female infertility 09/24/2015 12/27/2016 Infertility counseling 02/17/2015 6 documented as of this encounter (statuses as of 03/11/2022) 10-26-2021 History of Past illness Narrative* Problem Noted Date Resolved Date History of gestational diabetes 06/22/2021 12/21/2021 Polyhydramnios in third trimester 04/24/2019 07/18/2019 Diet controlled gestational diabetes mellitus (GDM) in third trimester 04/16/2019 07/18/2019 Antepartum anemia 04/10/2019 07/18/2019 Overview: 05/21/19 Hgb 11.7 Eleanor Bryant APRN.ANGELINA 04/12/19 Hgb 10.2 Fe sulfate 325 mg daily on Mondays, Wednesdays and Fridays. Repeat CBC in one month. Eleanor Bryant APRN.MANAGER DISCOVERY Abnormal glucose in , antepartum 201807/18/2019 Overview: 04/09/19 1 hr GCT 149. 3 hr GTT ordered. 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 Baby A MARIELLA normal with appearance of marginal cord insertion of the dividing membrane. Baby B MARIELLA mildly increased. Follow up US in 3 weeks for growth and MARIELLA. Argenis Dyer APRN.CNM 11/13/18 - twin by IVF - Bertram Quintana MD Supervision of other normal 11/13/2018 12/04/2018 Overview: 11/13/18 - need to discuss CF screening - Bertram Quintana MD Female infertility 08/01/2018 11/13/2018 Overview: Added automatically from request for surgery [id number] Encounter for supervision of normal first in first trimester 12/27/2016 02/15/2017 Overview: Girl on us resulting from ass isted reproductive technology in third trimester 05/10/2016 02/15/2017 Overview: 05/10/2016Pt and her have been attempting for 2 years. She has been seeing Dr Oneil for infertility for about a year. This was a result of IVF. Transfer was done 04/07/2016. TKRN Patient requested diagnostic testing 05/10/2016 10/18/2016 Overview: 05/10/2016Patient desires nuchal ultrasound. She is 7w2d today and her NOB is scheduled 06/08/[address] Ugalde ordered nuchal ultrasound. TKRN Female infertility 09/24/2015 12/27/2016 Infertility counseling 02/17/2015 6 documented as of this encounter (statuses as of 03/11/2022) 10-26-2021 History of Past illness Narrative* Problem Noted Date Resolved Date History of gestational diabetes 06/22/2021 12/21/2021 Polyhydramnios in third trimester 04/24/2019 07/18/2019 Diet controlled gestational diabetes mellitus (GDM) in third trimester 04/16/2019 07/18/2019 Antepartum anemia 04/10/2019 07/18/2019 Overview: 05/21/19 Hgb 11.7 Eleanor Bryant APRN.MANAGER DISCOVERY 04/12/19 Hgb 10.2 Fe sulfate 325 mg daily on Mondays, Wednesdays and Fridays. Repeat CBC in one month. Eleanor Bryant APRN.MANAGER DISCOVERY Abnormal glucose in , antepartum 201807/18/2019 Overview: 04/09/19 1 hr GCT 149. 3 hr GTT ordered. 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 Baby A MARIELLA normal with appearance of marginal cord insertion of the dividing membrane. Baby B MARIELLA mildly increased. Follow up US in 3 weeks for growth and MARIELLA. Argenis Dyer APRN.CNM 11/13/18 - twin by IVF - Bertram Quintana MD Supervision of other normal 11/13/2018 12/04/2018 Overview: 11/13/18 - need to discuss CF screening - Bertram Quintana MD Female infertility 08/01/2018 11/13/2018 Overview: Added automatically from request for surgery [id number] Encounter for supervision of normal first in first trimester 12/27/2016 02/15/2017 Overview: Girl on us resulting from ass isted reproductive technology in third trimester 05/10/2016 02/15/2017 Overview: 05/10/2016Pt and her have been attempting for 2 years. She has been seeing Dr Oneil for infertility for about a year. This was a result of IVF. Transfer was done 04/07/2016. TKRN Patient requested diagnostic testing 05/10/2016 10/18/2016 Overview: 05/10/2016Patient desires nuchal ultrasound. She is 7w2d today and her NOB is scheduled 06/08/[address] Ugalde ordered nuchal ultrasound. TKRN Female infertility 09/24/2015 12/27/2016 Infertility counseling 02/17/2015 6 documented as of this encounter (statuses as of 04/12/2022) 10-26-2021 History of Past illness Narrative* Problem Noted Date Resolved Date History of gestational diabetes 06/22/2021 12/21/2021 Polyhydramnios in third trimester 04/24/2019 07/18/2019 Diet controlled gestational diabetes mellitus (GDM) in third trimester 04/16/2019 07/18/2019 Antepartum anemia 04/10/2019 07/18/2019 Overview: 05/21/19 Hgb 11.7 Eleanor Bryant APRN.ANGELINA 04/12/19 Hgb 10.2 Fe sulfate 325 mg daily on Mondays, Wednesdays and Fridays. Repeat CBC in one month. Eleanor Bryant APRN.ANGELINA Abnormal glucose in , antepartum 201807/18/2019 Overview: 04/09/19 1 hr GCT 149. 3 hr GTT ordered. 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 Baby A MARIELLA normal with appearance of marginal cord insertion of the dividing membrane. Baby B MARIELLA mildly increased. Follow up US in 3 weeks for growth and MARIELLA. Argenis Dyer APRN.CNM 11/13/18 - twin by IVF - Bertram Quintana MD Supervision of other normal 11/13/2018 12/04/2018 Overview: 11/13/18 - need to discuss CF screening - Bertram Quintana MD Female infertility 08/01/2018 11/13/2018 Overview: Added automatically from request for surgery [id number] Encounter for supervision of normal first in first trimester 12/27/2016 02/15/2017 Overview: Girl on us resulting from ass isted reproductive technology in third trimester 05/10/2016 02/15/2017 Overview: 05/10/2016Pt and her have been attempting for 2 years. She has been seeing Dr Oneil for infertility for about a year. This was a result of IVF. Transfer was done 04/07/2016. TKRN Patient requested diagnostic testing 05/10/2016 10/18/2016 Overview: 05/10/2016Patient desires nuchal ultrasound. She is 7w2d today and her NOB is scheduled 06/08/[address] Ugalde ordered nuchal ultrasound. TKRN Female infertility 09/24/2015 12/27/2016 Infertility counseling 02/17/2015 6 documented as of this encounter (statuses as of 05/09/2022) 10-26-2021 History of Past illness Narrative* Problem Noted Date Resolved Date History of gestational diabetes 06/22/2021 12/21/2021 Polyhydramnios in third trimester 04/24/2019 07/18/2019 Diet controlled gestational diabetes mellitus (GDM) in third trimester 04/16/2019 07/18/2019 Antepartum anemia 04/10/2019 07/18/2019 Overview: 05/21/19 Hgb 11.7 Eleanor Bryant APRN.MANAGER DISCOVERY 04/12/19 Hgb 10.2 Fe sulfate 325 mg daily on Mondays, Wednesdays and Fridays. Repeat CBC in one month. Elaenor Bryant APRN.ANGELINA Abnormal glucose in , antepartum 201807/18/2019 Overview: 04/09/19 1 hr GCT 149. 3 hr GTT ordered. 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 Baby A MARIELLA normal with appearance of marginal cord insertion of the dividing membrane. Baby B MARIELLA mildly increased. Follow up US in 3 weeks for growth and MARIELLA. Argenis Dyer APRN.CNM 11/13/18 - twin by IVF - Bertram Quintana MD Supervision of other normal 11/13/2018 12/04/2018 Overview: 11/13/18 - need to discuss CF screening - Bertram Quintana MD Female infertility 08/01/2018 11/13/2018 Overview: Added automatically from request for surgery [id number] Encounter for supervision of normal first in first trimester 12/27/2016 02/15/2017 Overview: Girl on us resulting from ass isted reproductive technology in third trimester 05/10/2016 02/15/2017 Overview: 05/10/2016Pt and her have been attempting for 2 years. She has been seeing Dr Oneil for infertility for about a year. This was a result of IVF. Transfer was done 04/07/2016. TKRN Patient requested diagnostic testing 05/10/2016 10/18/2016 Overview: 05/10/2016Patient desires nuchal ultrasound. She is 7w2d today and her NOB is scheduled 06/08/[address] Ugalde ordered nuchal ultrasound. TKRN Female infertility 09/24/2015 12/27/2016 Infertility counseling 02/17/2015 6 documented as of this encounter (statuses as of 05/12/2022) 10-26-2021 History of Past illness Narrative* Problem Noted Date Resolved Date History of gestational diabetes 06/22/2021 12/21/2021 Polyhydramnios in third trimester 04/24/2019 07/18/2019 Diet controlled gestational diabetes mellitus (GDM) in third trimester 04/16/2019 07/18/2019 Antepartum anemia 04/10/2019 07/18/2019 Overview: 05/21/19 Hgb 11.7 Eleanor Bryant APRN.MANAGER DISCOVERY 04/12/19 Hgb 10.2 Fe sulfate 325 mg daily on Mondays, Wednesdays and Fridays. Repeat CBC in one month. Eleanor Bryant APRN.MANAGER DISCOVERY Abnormal glucose in , antepartum 201807/18/2019 Overview: 04/09/19 1 hr GCT 149. 3 hr GTT ordered. 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 Baby A MARIELLA normal with appearance of marginal cord insertion of the dividing membrane. Baby B MARIELLA mildly increased. Follow up US in 3 weeks for growth and MARIELLA. Argenis Dyer APRN.CN 11/13/18 - twin by IVF - Bertram Quintana MD Supervision of other normal 11/13/2018 12/04/2018 Overview: 11/13/18 - need to discuss CF screening - Bertram Quintana MD Female infertility 08/01/2018 11/13/2018 Overview: Added automatically from request for surgery [id number] Encounter for supervision of normal first in first trimester 12/27/2016 02/15/2017 Overview: Girl on us resulting from ass isted reproductive technology in third trimester 05/10/2016 02/15/2017 Overview: 05/10/2016Pt and her have been attempting for 2 years. She has been seeing Dr Oneil for infertility for about a year. This was a result of IVF. Transfer was done 04/07/2016. TKRN Patient requested diagnostic testing 05/10/2016 10/18/2016 Overview: 05/10/2016Patient desires nuchal ultrasound. She is 7w2d today and her NOB is scheduled 06/08/[address] Ugalde ordered nuchal ultrasound. TKRN Female infertility 09/24/2015 12/27/2016 Infertility counseling 02/17/2015 6 documented as of this encounter (statuses as of 05/26/2022) 10-26-2021 History of Past illness Narrative* Problem Noted Date Resolved Date History of gestational diabetes 06/22/2021 12/21/2021 Polyhydramnios in third trimester 04/24/2019 07/18/2019 Diet controlled gestational diabetes mellitus (GDM) in third trimester 04/16/2019 07/18/2019 Antepartum anemia 04/10/2019 07/18/2019 Overview: 05/21/19 Hgb 11.7 Eleanor Bryant APRN.MANAGER DISCOVERY 04/12/19 Hgb 10.2 Fe sulfate 325 mg daily on Mondays, Wednesdays and Fridays. Repeat CBC in one month. Eleanor Bryant APRN.MANAGER DISCOVERY Abnormal glucose in , antepartum 201807/18/2019 Overview: 04/09/19 1 hr GCT 149. 3 hr GTT ordered. 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 Baby A MARIELLA normal with appearance of marginal cord insertion of the dividing membrane. Baby B MARIELLA mildly increased. Follow up US in 3 weeks for growth and MARIELLA. Argenis Dyer APRN.CNM 11/13/18 - twin by IVF - Bertram Quintana MD Supervision of other normal 11/13/2018 12/04/2018 Overview: 11/13/18 - need to discuss CF screening - Bertram Quintana MD Female infertility 08/01/2018 11/13/2018 Overview: Added automatically from request for surgery [id number] Encounter for supervision of normal first in first trimester 12/27/2016 02/15/2017 Overview: Girl on us resulting from ass isted reproductive technology in third trimester 05/10/2016 02/15/2017 Overview: 05/10/2016Pt and her have been attempting for 2 years. She has been seeing Dr Oneil for infertility for about a year. This was a result of IVF. Transfer was done 04/07/2016. TKRN Patient requested diagnostic testing 05/10/2016 10/18/2016 Overview: 05/10/2016Patient desires nuchal ultrasound. She is 7w2d today and her NOB is scheduled 06/08/[address] Ugalde ordered nuchal ultrasound. TKRN Female infertility 09/24/2015 12/27/2016 Infertility counseling 02/17/2015 6 documented as of this encounter (statuses as of 06/02/2022) 10-26-2021 History of Past illness Narrative* Problem Noted Date Resolved Date History of gestational diabetes 06/22/2021 12/21/2021 Polyhydramnios in third trimester 04/24/2019 07/18/2019 Diet controlled gestational diabetes mellitus (GDM) in third trimester 04/16/2019 07/18/2019 Antepartum anemia 04/10/2019 07/18/2019 Overview: 05/21/19 Hgb 11.7 Eleanor Bryant APRN.MANAGER DISCOVERY 04/12/19 Hgb 10.2 Fe sulfate 325 mg daily on Mondays, Wednesdays and Fridays. Repeat CBC in one month. Eleanor Bryant APRN.MANAGER DISCOVERY Abnormal glucose in , antepartum 201807/18/2019 Overview: 04/09/19 1 hr GCT 149. 3 hr GTT ordered. 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 Baby A MARIELLA normal with appearance of marginal cord insertion of the dividing membrane. Baby B MARIELLA mildly increased. Follow up US in 3 weeks for growth and MARIELLA. Argenis Dyer APRN.CNM 11/13/18 - twin by IVF - Bertram Quintana MD Supervision of other normal 11/13/2018 12/04/2018 Overview: 11/13/18 - need to discuss CF screening - Bertram Quintana MD Female infertility 08/01/2018 11/13/2018 Overview: Added automatically from request for surgery [id number] Encounter for supervision of normal first in first trimester 12/27/2016 02/15/2017 Overview: Girl on us resulting from ass isted reproductive technology in third trimester 05/10/2016 02/15/2017 Overview: 05/10/2016Pt and her have been attempting for 2 years. She has been seeing Dr Oneil for infertility for about a year. This was a result of IVF. Transfer was done 04/07/2016. TKRN Patient requested diagnostic testing 05/10/2016 10/18/2016 Overview: 05/10/2016Patient desires nuchal ultrasound. She is 7w2d today and her NOB is scheduled 06/08/[address] Ugalde ordered nuchal ultrasound. TKRN Female infertility 09/24/2015 12/27/2016 Infertility counseling 02/17/2015 6 documented as of this encounter (statuses as of 06/02/2022) 10-26-2021 History of Past illness Narrative* Problem Noted Date Resolved Date History of gestational diabetes 06/22/2021 12/21/2021 Polyhydramnios in third trimester 04/24/2019 07/18/2019 Diet controlled gestational diabetes mellitus (GDM) in third trimester 04/16/2019 07/18/2019 Antepartum anemia 04/10/2019 07/18/2019 Overview: 05/21/19 Hgb 11.7 Eleanor Bryant APRN.MANAGER DISCOVERY 04/12/19 Hgb 10.2 Fe sulfate 325 mg daily on Mondays, Wednesdays and Fridays. Repeat CBC in one month. Eleanor Bryant APRN.MANAGER DISCOVERY Abnormal glucose in , antepartum 201807/18/2019 Overview: 04/09/19 1 hr GCT 149. 3 hr GTT ordered. 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 Baby A MARIELLA normal with appearance of marginal cord insertion of the dividing membrane. Baby B MARIELLA mildly increased. Follow up US in 3 weeks for growth and MARIELLA. Argenis Dyer APRN.CNM 11/13/18 - twin by IVF - Bertram Quintana MD Supervision of other normal 11/13/2018 12/04/2018 Overview: 11/13/18 - need to discuss CF screening - Bertram Quintana MD Female infertility 08/01/2018 11/13/2018 Overview: Added automatically from request for surgery [id number] Encounter for supervision of normal first in first trimester 12/27/2016 02/15/2017 Overview: Girl on us resulting from ass isted reproductive technology in third trimester 05/10/2016 02/15/2017 Overview: 05/10/2016Pt and her have been attempting for 2 years. She has been seeing Dr Oneil for infertility for about a year. This was a result of IVF. Transfer was done 04/07/2016. TKRN Patient requested diagnostic testing 05/10/2016 10/18/2016 Overview: 05/10/2016Patient desires nuchal ultrasound. She is 7w2d today and her NOB is scheduled 06/08/[address] Ugalde ordered nuchal ultrasound. TKRN Female infertility 09/24/2015 12/27/2016 Infertility counseling 02/17/2015 6 documented as of this encounter (statuses as of 06/10/2022) 10-26-2021 History of Past illness Narrative* Problem Noted Date Resolved Date History of gestational diabetes 06/22/2021 12/21/2021 Polyhydramnios in third trimester 04/24/2019 07/18/2019 Diet controlled gestational diabetes mellitus (GDM) in third trimester 04/16/2019 07/18/2019 Antepartum anemia 04/10/2019 07/18/2019 Overview: 05/21/19 Hgb 11.7 Eleanor Bryant APRN.MANAGER DISCOVERY 04/12/19 Hgb 10.2 Fe sulfate 325 mg daily on Mondays, Wednesdays and Fridays. Repeat CBC in one month. Eleanor Bryant APRN.MANAGER DISCOVERY Abnormal glucose in , antepartum 201807/18/2019 Overview: 04/09/19 1 hr GCT 149. 3 hr GTT ordered. 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 Baby A MARIELLA normal with appearance of marginal cord insertion of the dividing membrane. Baby B MARIELLA mildly increased. Follow up US in 3 weeks for growth and MARIELLA. Argenis Dyer APRN.CNM 11/13/18 - twin by IVF - Bertram Quintana MD Supervision of other normal 11/13/2018 12/04/2018 Overview: 11/13/18 - need to discuss CF screening - Bertram Quintana MD Female infertility 08/01/2018 11/13/2018 Overview: Added automatically from request for surgery [id number] Encounter for supervision of normal first in first trimester 12/27/2016 02/15/2017 Overview: Girl on us resulting from ass isted reproductive technology in third trimester 05/10/2016 02/15/2017 Overview: 05/10/2016Pt and her have been attempting for 2 years. She has been seeing Dr Oneil for infertility for about a year. This was a result of IVF. Transfer was done 04/07/2016. TKRN Patient requested diagnostic testing 05/10/2016 10/18/2016 Overview: 05/10/2016Patient desires nuchal ultrasound. She is 7w2d today and her NOB is scheduled 06/08/[address] Ugalde ordered nuchal ultrasound. TKRN Female infertility 09/24/2015 12/27/2016 Infertility counseling 02/17/2015 6 documented as of this encounter (statuses as of 06/10/2022) 10-26-2021 History of Past illness Narrative* Problem Noted Date Resolved Date History of gestational diabetes 06/22/2021 12/21/2021 Polyhydramnios in third trimester 04/24/2019 07/18/2019 Diet controlled gestational diabetes mellitus (GDM) in third trimester 04/16/2019 07/18/2019 Antepartum anemia 04/10/2019 07/18/2019 Overview: 05/21/19 Hgb 11.7 Eleanor Bryant APRN.MANAGER DISCOVERY 04/12/19 Hgb 10.2 Fe sulfate 325 mg daily on Mondays, Wednesdays and Fridays. Repeat CBC in one month. Eleanor Bryant APRN.MANAGER DISCOVERY Abnormal glucose in , antepartum 201807/18/2019 Overview: 04/09/19 1 hr GCT 149. 3 hr GTT ordered. 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 Baby A MARIELLA normal with appearance of marginal cord insertion of the dividing membrane. Baby B MARIELLA mildly increased. Follow up US in 3 weeks for growth and MARIELLA. Argenis Dyer APRN.CNM 11/13/18 - twin by IVF - Bertram Quintana MD Supervision of other normal 11/13/2018 12/04/2018 Overview: 11/13/18 - need to discuss CF screening - Bertram Quintana MD Female infertility 08/01/2018 11/13/2018 Overview: Added automatically from request for surgery [id number] Encounter for supervision of normal first in first trimester 12/27/2016 02/15/2017 Overview: Girl on us resulting from ass isted reproductive technology in third trimester 05/10/2016 02/15/2017 Overview: 05/10/2016Pt and her have been attempting for 2 years. She has been seeing Dr Oneil for infertility for about a year. This was a result of IVF. Transfer was done 04/07/2016. TKRN Patient requested diagnostic testing 05/10/2016 10/18/2016 Overview: 05/10/2016Patient desires nuchal ultrasound. She is 7w2d today and her NOB is scheduled 06/08/[address] Ugalde ordered nuchal ultrasound. TKRN Female infertility 09/24/2015 12/27/2016 Infertility counseling 02/17/2015 6 documented as of this encounter (statuses as of 06/13/2022) 10-26-2021 History of Past illness Narrative* Problem Noted Date Resolved Date History of gestational diabetes 06/22/2021 12/21/2021 Polyhydramnios in third trimester 04/24/2019 07/18/2019 Diet controlled gestational diabetes mellitus (GDM) in third trimester 04/16/2019 07/18/2019 Antepartum anemia 04/10/2019 07/18/2019 Overview: 05/21/19 Hgb 11.7 Eleanor Bryant APRN.MANAGER DISCOVERY 04/12/19 Hgb 10.2 Fe sulfate 325 mg daily on Mondays, Wednesdays and Fridays. Repeat CBC in one month. Eleanor Bryant APRN.CNP Abnormal glucose in , antepartum 201807/18/2019 Overview: 04/09/19 1 hr GCT 149. 3 hr GTT ordered. 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 Baby A MARIELLA normal with appearance of marginal cord insertion of the dividing membrane. Baby B MARIELLA mildly increased. Follow up US in 3 weeks for growth and MARIELLA. Argenis Dyer APRN.LISAM 11/13/18 - twin by IVF - Bertram Quintana MD Supervision of other normal 11/13/2018 12/04/2018 Overview: 11/13/18 - need to discuss CF screening - Bertram Quintana MD Female infertility 08/01/2018 11/13/2018 Overview: Added automatically from request for surgery [id number] Encounter for supervision of normal first in first trimester 12/27/2016 02/15/2017 Overview: Girl on us resulting from ass isted reproductive technology in third trimester 05/10/2016 02/15/2017 Overview: 05/10/2016Pt and her have been attempting for 2 years. She has been seeing Dr Oneil for infertility for about a year. This was a result of IVF. Transfer was done 04/07/2016. TKRN Patient requested diagnostic testing 05/10/2016 10/18/2016 Overview: 05/10/2016Patient desires nuchal ultrasound. She is 7w2d today and her NOB is scheduled 06/08/[address] Ugalde ordered nuchal ultrasound. TKRN Female infertility 09/24/2015 12/27/2016 Infertility counseling 02/17/2015 6 documented as of this encounter (statuses as of 06/13/2022) 10-26-2021 History of Past illness Narrative* Problem Noted Date Resolved Date History of gestational diabetes 06/22/2021 12/21/2021 Polyhydramnios in third trimester 04/24/2019 07/18/2019 Diet controlled gestational diabetes mellitus (GDM) in third trimester 04/16/2019 07/18/2019 Antepartum anemia 04/10/2019 07/18/2019 Overview: 05/21/19 Hgb 11.7 Eleanor Bryant APRN.MANAGER DISCOVERY 04/12/19 Hgb 10.2 Fe sulfate 325 mg daily on Mondays, Wednesdays and Fridays. Repeat CBC in one month. Eleanor Bryant APRN.MANAGER DISCOVERY Abnormal glucose in , antepartum 201807/18/2019 Overview: 04/09/19 1 hr GCT 149. 3 hr GTT ordered. 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 Baby A MARIELLA normal with appearance of marginal cord insertion of the dividing membrane. Baby B MARIELLA mildly increased. Follow up US in 3 weeks for growth and MARIELLA. Argenis Dyer APRN.CNM 11/13/18 - twin by IVF - Bertram Quintana MD Supervision of other normal 11/13/2018 12/04/2018 Overview: 11/13/18 - need to discuss CF screening - Bertram Quintana MD Female infertility 08/01/2018 11/13/2018 Overview: Added automatically from request for surgery [id number] Encounter for supervision of normal first in first trimester 12/27/2016 02/15/2017 Overview: Girl on us resulting from ass isted reproductive technology in third trimester 05/10/2016 02/15/2017 Overview: 05/10/2016Pt and her have been attempting for 2 years. She has been seeing Dr Oneil for infertility for about a year. This was a result of IVF. Transfer was done 04/07/2016. TKRN Patient requested diagnostic testing 05/10/2016 10/18/2016 Overview: 05/10/2016Patient desires nuchal ultrasound. She is 7w2d today and her NOB is scheduled 06/08/[address] Ugalde ordered nuchal ultrasound. TKRN Female infertility 09/24/2015 12/27/2016 Infertility counseling 02/17/2015 6 documented as of this encounter (statuses as of 06/23/2022) 10-26-2021 History of Past illness Narrative* Problem Noted Date Resolved Date History of gestational diabetes 06/22/2021 12/21/2021 Polyhydramnios in third trimester 04/24/2019 07/18/2019 Diet controlled gestational diabetes mellitus (GDM) in third trimester 04/16/2019 07/18/2019 Antepartum anemia 04/10/2019 07/18/2019 Overview: 05/21/19 Hgb 11.7 Eleanor Bryant APRN.ANGELINA 04/12/19 Hgb 10.2 Fe sulfate 325 mg daily on Mondays, Wednesdays and Fridays. Repeat CBC in one month. Eleanor Bryant APRN.ANGELINA Abnormal glucose in , antepartum 201807/18/2019 Overview: 04/09/19 1 hr GCT 149. 3 hr GTT ordered. 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 Baby A MARIELLA normal with appearance of marginal cord insertion of the dividing membrane. Baby B MARIELLA mildly increased. Follow up US in 3 weeks for growth and MARIELLA. Argenis Dyer APRN.CNM 11/13/18 - twin by IVF - Bertram Quintana MD Supervision of other normal 11/13/2018 12/04/2018 Overview: 11/13/18 - need to discuss CF screening - Bertram Quintana MD Female infertility 08/01/2018 11/13/2018 Overview: Added automatically from request for surgery [id number] Encounter for supervision of normal first in first trimester 12/27/2016 02/15/2017 Overview: Girl on us resulting from ass isted reproductive technology in third trimester 05/10/2016 02/15/2017 Overview: 05/10/2016Pt and her have been attempting for 2 years. She has been seeing Dr Oneil for infertility for about a year. This was a result of IVF. Transfer was done 04/07/2016. TKRN Patient requested diagnostic testing 05/10/2016 10/18/2016 Overview: 05/10/2016Patient desires nuchal ultrasound. She is 7w2d today and her NOB is scheduled 06/08/[address] Ugalde ordered nuchal ultrasound. TKRN Female infertility 09/24/2015 12/27/2016 Infertility counseling 02/17/2015 6 documented as of this encounter (statuses as of 06/27/2022) 10-26-2021 History of Past illness Narrative* Problem Noted Date Resolved Date History of gestational diabetes 06/22/2021 12/21/2021 Polyhydramnios in third trimester 04/24/2019 07/18/2019 Diet controlled gestational diabetes mellitus (GDM) in third trimester 04/16/2019 07/18/2019 Antepartum anemia 04/10/2019 07/18/2019 Overview: 05/21/19 Hgb 11.7 Eleanor Bryant APRN.ANGELINA 04/12/19 Hgb 10.2 Fe sulfate 325 mg daily on Mondays, Wednesdays and Fridays. Repeat CBC in one month. Eleanor Bryant APRN.ANGELINA Abnormal glucose in , antepartum 201807/18/2019 Overview: 04/09/19 1 hr GCT 149. 3 hr GTT ordered. 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 Baby A MARIELLA normal with appearance of marginal cord insertion of the dividing membrane. Baby B MARIELLA mildly increased. Follow up US in 3 weeks for growth and MARIELLA. Argenis Dyer APRN.CNM 11/13/18 - twin by IVF - Bertram Quintana MD Supervision of other normal 11/13/2018 12/04/2018 Overview: 11/13/18 - need to discuss CF screening - Bertram Quintana MD Female infertility 08/01/2018 11/13/2018 Overview: Added automatically from request for surgery [id number] Encounter for supervision of normal first in first trimester 12/27/2016 02/15/2017 Overview: Girl on us resulting from ass isted reproductive technology in third trimester 05/10/2016 02/15/2017 Overview: 05/10/2016Pt and her have been attempting for 2 years. She has been seeing Dr Oneil for infertility for about a year. This was a result of IVF. Transfer was done 04/07/2016. TKRN Patient requested diagnostic testing 05/10/2016 10/18/2016 Overview: 05/10/2016Patient desires nuchal ultrasound. She is 7w2d today and her NOB is scheduled 06/08/[address] Ugalde ordered nuchal ultrasound. TKRN Female infertility 09/24/2015 12/27/2016 Infertility counseling 02/17/2015 6 documented as of this encounter (statuses as of 07/06/2022) 10-26-2021 History of Past illness Narrative* Problem Noted Date Resolved Date History of gestational diabetes 06/22/2021 12/21/2021 Polyhydramnios in third trimester 04/24/2019 07/18/2019 Diet controlled gestational diabetes mellitus (GDM) in third trimester 04/16/2019 07/18/2019 Antepartum anemia 04/10/2019 07/18/2019 Overview: 05/21/19 Hgb 11.7 Eleanor Bryant APRN.MANAGER DISCOVERY 04/12/19 Hgb 10.2 Fe sulfate 325 mg daily on Mondays, Wednesdays and Fridays. Repeat CBC in one month. Eleanor Bryant APRN.MANAGER DISCOVERY Abnormal glucose in , antepartum 201807/18/2019 Overview: 04/09/19 1 hr GCT 149. 3 hr GTT ordered. 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 Baby A MARIELLA normal with appearance of marginal cord insertion of the dividing membrane. Baby B MARIELLA mildly increased. Follow up US in 3 weeks for growth and MARIELLA. Argenis Dyer APRN.CNM 11/13/18 - twin by IVF - Bertram Quintana MD Supervision of other normal 11/13/2018 12/04/2018 Overview: 11/13/18 - need to discuss CF screening - Bertram Quintana MD Female infertility 08/01/2018 11/13/2018 Overview: Added automatically from request for surgery [id number] Encounter for supervision of normal first in first trimester 12/27/2016 02/15/2017 Overview: Girl on us resulting from ass isted reproductive technology in third trimester 05/10/2016 02/15/2017 Overview: 05/10/2016Pt and her have been attempting for 2 years. She has been seeing Dr Oneil for infertility for about a year. This was a result of IVF. Transfer was done 04/07/2016. TKRN Patient requested diagnostic testing 05/10/2016 10/18/2016 Overview: 05/10/2016Patient desires nuchal ultrasound. She is 7w2d today and her NOB is scheduled 06/08/[address] Ugalde ordered nuchal ultrasound. TKRN Female infertility 09/24/2015 12/27/2016 Infertility counseling 02/17/2015 6 documented as of this encounter (statuses as of 07/06/2022) 10-26-2021 History of Past illness Narrative* Problem Noted Date Resolved Date History of gestational diabetes 06/22/2021 12/21/2021 Polyhydramnios in third trimester 04/24/2019 07/18/2019 Diet controlled gestational diabetes mellitus (GDM) in third trimester 04/16/2019 07/18/2019 Antepartum anemia 04/10/2019 07/18/2019 Overview: 05/21/19 Hgb 11.7 Eleanor Bryant APRN.MANAGER DISCOVERY 04/12/19 Hgb 10.2 Fe sulfate 325 mg daily on Mondays, Wednesdays and Fridays. Repeat CBC in one month. Eleanor Bryant APRN.MANAGER DISCOVERY Abnormal glucose in , antepartum 201807/18/2019 Overview: 04/09/19 1 hr GCT 149. 3 hr GTT ordered. 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 Baby A MARIELLA normal with appearance of marginal cord insertion of the dividing membrane. Baby B MARIELLA mildly increased. Follow up US in 3 weeks for growth and MARIELLA. Argenis Dyer APRN.CNM 11/13/18 - twin by IVF - Bertram Quintana MD Supervision of other normal 11/13/2018 12/04/2018 Overview: 11/13/18 - need to discuss CF screening - Bertram Quintana MD Female infertility 08/01/2018 11/13/2018 Overview: Added automatically from request for surgery [id number] Encounter for supervision of normal first in first trimester 12/27/2016 02/15/2017 Overview: Girl on us resulting from ass isted reproductive technology in third trimester 05/10/2016 02/15/2017 Overview: 05/10/2016Pt and her have been attempting for 2 years. She has been seeing Dr Oneil for infertility for about a year. This was a result of IVF. Transfer was done 04/07/2016. TKRN Patient requested diagnostic testing 05/10/2016 10/18/2016 Overview: 05/10/2016Patient desires nuchal ultrasound. She is 7w2d today and her NOB is scheduled 06/08/[address] Ugalde ordered nuchal ultrasound. TKRN Female infertility 09/24/2015 12/27/2016 Infertility counseling 02/17/2015 6 documented as of this encounter (statuses as of 07/11/2022) 10-26-2021 History of Past illness Narrative* Problem Noted Date Resolved Date History of gestational diabetes 06/22/2021 12/21/2021 Polyhydramnios in third trimester 04/24/2019 07/18/2019 Diet controlled gestational diabetes mellitus (GDM) in third trimester 04/16/2019 07/18/2019 Antepartum anemia 04/10/2019 07/18/2019 Overview: 05/21/19 Hgb 11.7 Eleanor Bryant APRN.MANAGER DISCOVERY 04/12/19 Hgb 10.2 Fe sulfate 325 mg daily on Mondays, Wednesdays and Fridays. Repeat CBC in one month. Eleanor Bryant APRN.ANGELINA Abnormal glucose in , antepartum 201807/18/2019 Overview: 04/09/19 1 hr GCT 149. 3 hr GTT ordered. 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 Baby A MARIELLA normal with appearance of marginal cord insertion of the dividing membrane. Baby B MARIELLA mildly increased. Follow up US in 3 weeks for growth and MARIELLA. Argenis Dyer APRN.CNM 11/13/18 - twin by IVF - Bertram Quintana MD Supervision of other normal 11/13/2018 12/04/2018 Overview: 11/13/18 - need to discuss CF screening - Bertram Quintana MD Female infertility 08/01/2018 11/13/2018 Overview: Added automatically from request for surgery [id number] Encounter for supervision of normal first in first trimester 12/27/2016 02/15/2017 Overview: Girl on us resulting from ass isted reproductive technology in third trimester 05/10/2016 02/15/2017 Overview: 05/10/2016Pt and her have been attempting for 2 years. She has been seeing Dr Oneil for infertility for about a year. This was a result of IVF. Transfer was done 04/07/2016. TKRN Patient requested diagnostic testing 05/10/2016 10/18/2016 Overview: 05/10/2016Patient desires nuchal ultrasound. She is 7w2d today and her NOB is scheduled 06/08/[address] Ugalde ordered nuchal ultrasound. TKRN Female infertility 09/24/2015 12/27/2016 Infertility counseling 02/17/2015 6 documented as of this encounter (statuses as of 07/15/2022) 10-26-2021 History of Past illness Narrative* Problem Noted Date Resolved Date History of gestational diabetes 06/22/2021 12/21/2021 Polyhydramnios in third trimester 04/24/2019 07/18/2019 Diet controlled gestational diabetes mellitus (GDM) in third trimester 04/16/2019 07/18/2019 Antepartum anemia 04/10/2019 07/18/2019 Overview: 05/21/19 Hgb 11.7 Eleanor Bryant APRN.ANGELINA 04/12/19 Hgb 10.2 Fe sulfate 325 mg daily on Mondays, Wednesdays and Fridays. Repeat CBC in one month. Eleanor Bryant APRN.ANGELINA Abnormal glucose in , antepartum 201807/18/2019 Overview: 04/09/19 1 hr GCT 149. 3 hr GTT ordered. 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 Baby A MARIELLA normal with appearance of marginal cord insertion of the dividing membrane. Baby B MARIELLA mildly increased. Follow up US in 3 weeks for growth and MARIELLA. Argenis Dyer APRN.CN 11/13/18 - twin by IVF - Bertram Quintana MD Supervision of other normal 11/13/2018 12/04/2018 Overview: 11/13/18 - need to discuss CF screening - Bertram Quintana MD Female infertility 08/01/2018 11/13/2018 Overview: Added automatically from request for surgery [id number] Encounter for supervision of normal first in first trimester 12/27/2016 02/15/2017 Overview: Girl on us resulting from ass isted reproductive technology in third trimester 05/10/2016 02/15/2017 Overview: 05/10/2016Pt and her have been attempting for 2 years. She has been seeing Dr Oneil for infertility for about a year. This was a result of IVF. Transfer was done 04/07/2016. TKRN Patient requested diagnostic testing 05/10/2016 10/18/2016 Overview: 05/10/2016Patient desires nuchal ultrasound. She is 7w2d today and her NOB is scheduled 06/08/[address] Ugalde ordered nuchal ultrasound. TKRN Female infertility 09/24/2015 12/27/2016 Infertility counseling 02/17/2015 6 documented as of this encounter (statuses as of 07/22/2022) 10-26-2021 History of Past illness Narrative* Problem Noted Date Resolved Date History of gestational diabetes 06/22/2021 12/21/2021 Polyhydramnios in third trimester 04/24/2019 07/18/2019 Diet controlled gestational diabetes mellitus (GDM) in third trimester 04/16/2019 07/18/2019 Antepartum anemia 04/10/2019 07/18/2019 Overview: 05/21/19 Hgb 11.7 Eleanor Bryant APRN.MANAGER DISCOVERY 04/12/19 Hgb 10.2 Fe sulfate 325 mg daily on Mondays, Wednesdays and Fridays. Repeat CBC in one month. Eleanor Bryant APRN.MANAGER DISCOVERY Abnormal glucose in , antepartum 201807/18/2019 Overview: 04/09/19 1 hr GCT 149. 3 hr GTT ordered. 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 Baby A MARIELLA normal with appearance of marginal cord insertion of the dividing membrane. Baby B MARIELLA mildly increased. Follow up US in 3 weeks for growth and MARIELLA. Argenis Dyer APRN.CNM 11/13/18 - twin by IVF - Bertram Quintana MD Supervision of other normal 11/13/2018 12/04/2018 Overview: 11/13/18 - need to discuss CF screening - Bertram Quintana MD Female infertility 08/01/2018 11/13/2018 Overview: Added automatically from request for surgery [id number] Encounter for supervision of normal first in first trimester 12/27/2016 02/15/2017 Overview: Girl on us resulting from ass isted reproductive technology in third trimester 05/10/2016 02/15/2017 Overview: 05/10/2016Pt and her have been attempting for 2 years. She has been seeing Dr Oneil for infertility for about a year. This was a result of IVF. Transfer was done 04/07/2016. TKRN Patient requested diagnostic testing 05/10/2016 10/18/2016 Overview: 05/10/2016Patient desires nuchal ultrasound. She is 7w2d today and her NOB is scheduled 06/08/[address] Ugalde ordered nuchal ultrasound. TKRN Female infertility 09/24/2015 12/27/2016 Infertility counseling 02/17/2015 6 documented as of this encounter (statuses as of 07/26/2022) 10-26-2021 History of Past illness Narrative* Problem Noted Date Resolved Date History of gestational diabetes 06/22/2021 12/21/2021 Polyhydramnios in third trimester 04/24/2019 07/18/2019 Diet controlled gestational diabetes mellitus (GDM) in third trimester 04/16/2019 07/18/2019 Antepartum anemia 04/10/2019 07/18/2019 Overview: 05/21/19 Hgb 11.7 Eleanor Bryant APRN.MANAGER DISCOVERY 04/12/19 Hgb 10.2 Fe sulfate 325 mg daily on Mondays, Wednesdays and Fridays. Repeat CBC in one month. Eleanor Bryant APRN.MANAGER DISCOVERY Abnormal glucose in , antepartum 201807/18/2019 Overview: 04/09/19 1 hr GCT 149. 3 hr GTT ordered. 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 Baby A MARIELLA normal with appearance of marginal cord insertion of the dividing membrane. Baby B MARIELLA mildly increased. Follow up US in 3 weeks for growth and MARIELLA. Argenis Dyer APRN.CNM 11/13/18 - twin by IVF - Bertram Quintana MD Supervision of other normal 11/13/2018 12/04/2018 Overview: 11/13/18 - need to discuss CF screening - Bertram Quintana MD Female infertility 08/01/2018 11/13/2018 Overview: Added automatically from request for surgery [id number] Encounter for supervision of normal first in first trimester 12/27/2016 02/15/2017 Overview: Girl on us resulting from ass isted reproductive technology in third trimester 05/10/2016 02/15/2017 Overview: 05/10/2016Pt and her have been attempting for 2 years. She has been seeing Dr Oneil for infertility for about a year. This was a result of IVF. Transfer was done 04/07/2016. TKRN Patient requested diagnostic testing 05/10/2016 10/18/2016 Overview: 05/10/2016Patient desires nuchal ultrasound. She is 7w2d today and her NOB is scheduled 06/08/[address] Ugalde ordered nuchal ultrasound. TKRN Female infertility 09/24/2015 12/27/2016 Infertility counseling 02/17/2015 6 documented as of this encounter (statuses as of 07/28/2022) 10-26-2021 History of Past illness Narrative* Problem Noted Date Resolved Date History of gestational diabetes 06/22/2021 12/21/2021 Polyhydramnios in third trimester 04/24/2019 07/18/2019 Diet controlled gestational diabetes mellitus (GDM) in third trimester 04/16/2019 07/18/2019 Antepartum anemia 04/10/2019 07/18/2019 Overview: 05/21/19 Hgb 11.7 Eleanor Bryant APRN.MANAGER DISCOVERY 04/12/19 Hgb 10.2 Fe sulfate 325 mg daily on Mondays, Wednesdays and Fridays. Repeat CBC in one month. Eleanor Bryant APRN.MANAGER DISCOVERY Abnormal glucose in , antepartum 201807/18/2019 Overview: 04/09/19 1 hr GCT 149. 3 hr GTT ordered. 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 Baby A MARIELLA normal with appearance of marginal cord insertion of the dividing membrane. Baby B MARIELLA mildly increased. Follow up US in 3 weeks for growth and MARIELLA. Argenis Dyer APRN.CNM 11/13/18 - twin by IVF - Bertram Quintana MD Supervision of other normal 11/13/2018 12/04/2018 Overview: 11/13/18 - need to discuss CF screening - Bertram Quintana MD Female infertility 08/01/2018 11/13/2018 Overview: Added automatically from request for surgery [id number] Encounter for supervision of normal first in first trimester 12/27/2016 02/15/2017 Overview: Girl on us resulting from ass isted reproductive technology in third trimester 05/10/2016 02/15/2017 Overview: 05/10/2016Pt and her have been attempting for 2 years. She has been seeing Dr Oneil for infertility for about a year. This was a result of IVF. Transfer was done 04/07/2016. TKRN Patient requested diagnostic testing 05/10/2016 10/18/2016 Overview: 05/10/2016Patient desires nuchal ultrasound. She is 7w2d today and her NOB is scheduled 06/08/[address] Ugalde ordered nuchal ultrasound. TKRN Female infertility 09/24/2015 12/27/2016 Infertility counseling 02/17/2015 6 documented as of this encounter (statuses as of 08/01/2022) 08-28-2019 History of Past illness Narrative* Problem Noted Date Resolved Date Polyhydramnios in third trimester 04/24/2019 07/18/2019 Diet controlled gestational diabetes mellitus (GDM) in third trimester 04/16/2019 07/18/2019 Antepartum anemia 04/10/2019 07/18/2019 Overview: 05/21/19 Hgb 11.7 Eleanor Bryant APRN.MANAGER DISCOVERY 04/12/19 Hgb 10.2 Fe sulfate 325 mg daily on Mondays, Wednesdays and Fridays. Repeat CBC in one month. Eleanor Bryant APRN.MANAGER DISCOVERY Abnormal glucose in , antepartum 201807/18/2019 Overview: 04/09/19 1 hr GCT 149. 3 hr GTT ordered. 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 Baby A MARIELLA normal with appearance of marginal cord insertion of the dividing membrane. Baby B MARIELLA mildly increased. Follow up US in 3 weeks for growth and MARIELLA. Argenis Dyer APRN.CNM 11/13/18 - twin by IVF - Bertram Quintana MD Advanced maternal age in multigravida 11/13/2018 07/18/2019 Overview: 11/13/18 - plan for NT with - Bertram Quintana MD Supervision of other normal 11/13/2018 12/04/2018 Overview: 11/13/18 - need to discuss CF screening - Bertram Quintana MD Female infertility 08/01/2018 11/13/2018 Overview: Added automatically from request for surgery [id number] Encounter for supervision of normal first in first trimester 12/27/2016 02/15/2017 Overview: Girl on us resulting from ass isted reproductive technology in third trimester 05/10/2016 02/15/2017 Overview: 05/10/2016Pt and her have been attempting for 2 years. She has been seeing Dr Oneil for infertility for about a year. This was a result of IVF. Transfer was done 04/07/2016. TKRN Patient requested diagnostic testing 05/10/2016 10/18/2016 Overview: 05/10/2016Patient desires nuchal ultrasound. She is 7w2d today and her NOB is scheduled 06/08/[address] Ugalde ordered nuchal ultrasound. TKRN Female infertility 09/24/2015 12/27/2016 Infertility counseling 02/17/2015 6 documented as of this encounter (statuses as of 11/29/2021) 08-28-2019 History of Past illness Narrative* Problem Noted Date Resolved Date Polyhydramnios in third trimester 04/24/2019 07/18/2019 Diet controlled gestational diabetes mellitus (GDM) in third trimester 04/16/2019 07/18/2019 Antepartum anemia 04/10/2019 07/18/2019 Overview: 05/21/19 Hgb 11.7 Eleanor Bryant APRN.MANAGER DISCOVERY 04/12/19 Hgb 10.2 Fe sulfate 325 mg daily on Mondays, Wednesdays and Fridays. Repeat CBC in one month. Eleanor Bryant APRN.MANAGER DISCOVERY Abnormal glucose in , antepartum 201807/18/2019 Overview: 04/09/19 1 hr GCT 149. 3 hr GTT ordered. 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 Baby A MARIELLA normal with appearance of marginal cord insertion of the dividing membrane. Baby B MARIELLA mildly increased. Follow up US in 3 weeks for growth and MARIELLA. Argenis Dyer APRN.CNM 11/13/18 - twin by IVF - Bertram Quintana MD Supervision of other normal 11/13/2018 12/04/2018 Overview: 11/13/18 - need to discuss CF screening - Bertram Quintana MD Female infertility 08/01/2018 11/13/2018 Overview: Added automatically from request for surgery [id number] Encounter for supervision of normal first in first trimester 12/27/2016 02/15/2017 Overview: Girl on us resulting from ass isted reproductive technology in third trimester 05/10/2016 02/15/2017 Overview: 05/10/2016Pt and her have been attempting for 2 years. She has been seeing Dr Oneil for infertility for about a year. This was a result of IVF. Transfer was done 04/07/2016. TKRN Patient requested diagnostic testing 05/10/2016 10/18/2016 Overview: 05/10/2016Patient desires nuchal ultrasound. She is 7w2d today and her NOB is scheduled 06/08/[address] Ugalde ordered nuchal ultrasound. TKRN Female infertility 09/24/2015 12/27/2016 Infertility counseling 02/17/2015 6 documented as of this encounter (statuses as of 12/09/2021) Evaluation note* Diagnosis Early stage of - Primary state, incidental documented in this encounter Evaluation note* Diagnosis Antepartum multigravida of advanced maternal age- Primary with history of infertility, antepartum History of gestational diabetes in prior , currently with other poor obstetric history with history of section, antepartum History of macrosomia in infant in prior , currently with other poor obstetric history documented in this encounter Evaluation note* Diagnosis Antepartum multigravida of advanced maternal age- Primary History of delivery, currently Previous delivery, unspecified as to episode of care or not applicable [facility] Diagnosis AMA (advanced maternal age) multigravida 35+, first trimester- Primary Encounter for screening for [facility] translucency [facility] Diagnosis Antepartum multigravida of advanced maternal age- Primary 12 weeks gestation of state, incidental [facility]* Diagnosis 16 weeks gestation of - Primary state, incidental Antepartum multigravida of advanced maternal age History of delivery, currently Previous delivery, unspecified as to episode of care or not applicable [facility]* Diagnosis 19 weeks gestation of - Primary state, incidental [facility]* Diagnosis Encounter for routine screening for malformation using ultrasonics- Primary 19 weeks gestation of state, incidental Elderly multigravida with antepartum condition or complication 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 documented in this encounter [facility] note* Diagnosis 24 weeks gestation of - Primary state, incidental [facility]* Diagnosis Abnormal maternal glucose tolerance, antepartum- Primary Gestational diabetes mellitus, class A1 Abnormal maternal glucose tolerance, complicating , childbirth, or the puerperium, unspecified as to episode of care Antepartum anemia Anemia, antepartum [facility]* Diagnosis 28 weeks gestation of - Primary state, incidental Gestational diabetes mellitus, class A1 Abnormal maternal glucose tolerance, complicating , childbirth, or the puerperium, unspecified as to episode of care Need for vaccination Need for prophylactic vaccination and inoculation against unspecified single disease [facility] Diagnosis 30 weeks gestation of - Primary state, incidental Antepartum multigravida of advanced maternal age Gestational diabetes mellitus, class A1 Abnormal maternal glucose tolerance, complicating , childbirth, or the puerperium, unspecified as to episode of care GDM, class A2 Abnormal maternal glucose tolerance, complicating , childbirth, or the puerperium, unspecified as to episode of care documented in this encounter [facility] note* Diagnosis 30 weeks gestation of state, incidental GDM, class A2 Abnormal maternal glucose tolerance, complicating , childbirth, or the puerperium, unspecified as to episode of care [facility]* Diagnosis Gestational diabetes mellitus, class A1- Primary Abnormal maternal glucose tolerance, complicating , childbirth, or the puerperium, unspecified as to episode of care Antepartum multigravida of advanced maternal age 32 weeks gestation of state, incidental [facility]* Diagnosis 32 weeks gestation of - Primary state, incidental [facility]* Diagnosis GDM, class A2- Primary Abnormal maternal glucose tolerance, complicating , childbirth, or the puerperium, unspecified as to episode of care Antepartum multigravida of advanced maternal age [facility]* Diagnosis 34 weeks gestation of - Primary state, incidental Antepartum multigravida of advanced maternal age GDM, class A2 Abnormal maternal glucose tolerance, complicating , childbirth, or the puerperium, unspecified as to episode of care [facility] Diagnosis 36 weeks gestation of - Primary state, incidental AMA (advanced maternal age) multigravida 35+, third trimester Diet controlled gestational diabetes mellitus (GDM) in third trimester [facility] Diagnosis GDM, class A2- Primary Abnormal maternal glucose tolerance, complicating , childbirth, or the puerperium, unspecified as to episode of care Antepartum multigravida of advanced maternal age 36 weeks gestation of state, incidental [facility] Diagnosis Antepartum multigravida of advanced maternal age- Primary 37 weeks gestation of state, incidental 30 weeks gestation of state, incidental GDM, class A2 Abnormal maternal glucose tolerance, complicating , childbirth, or the puerperium, unspecified as to episode of care [facility]* Diagnosis Antepartum multigravida of advanced maternal age- Primary 38 weeks gestation of state, incidental [facility]* Diagnosis Encounter for screening [facility] for [facility] care and examination- Primary Routine follow-up Cervical cancer screening Screening for malignant neoplasm of the cervix documented in this encounter [facility] note* Diagnosis Encounter for screening mammogram for breast cancer documented in this encounter [facility] for referral (narrative)* Diagnostic Procedure Only (Routine) - Authorized Specialty Diagnoses / Procedures Referred By Contac t Referred To Contact [facility] Diagnoses Antepartum multigravida of advanced maternal age Procedures OBSTETRIC ULTRASOUND WHI US PREG UTERUS AFTER 1ST TRIMEST GESTATION Bertram Quintana MD [address] [place] [address] [id number] [place] [address] Referral ID Status Reason Start Date Expiration Date Visits Requested Visits Authorized [id number] Authorized Auto-Generat ed Referral 01/18/2022 01/18/2023 1 1 [facility] for referral (narrative)* Outpatient Procedure (Routine) - Pending Review Specialty Diagnoses / Procedures Referred By Contac t Referred To Contact [facility] Diagnoses Antepartum multigravida of advanced maternal age 30 weeks gestation of Procedures NON-STRESS TEST NON-STRESS TEST Bere Mccauley MD [address] [place] [address] [facility] [address] [place] [address] Referral ID Status Reason Start Date Expiration Date Visits Requested Visits Authorized [id number] Pending Review Auto-Generat ed Referral 05/25/2022 05/25/2023 6 1 * Diagnostic Procedure Only (Routine) - Pending Review Specialty Diagnoses / Procedures Referred By Contac t Referred To Contact [facility] Diagnoses Antepartum multigravida of advanced maternal age 30 weeks gestation of GDM, class A2 Procedures OBSTETRIC ULTRASOUND WHI US PREG UTERUS AFTER 1ST TRIMEST GESTATION Bere Mccauley MD [address] [facility] [address] [facility] [address] [place] [address] Referral ID Status Reason Start Date Expiration Date Visits Requested Visits Authorized [id number] Pending Review Auto-Generat ed Referral 05/25/2022 05/25/2023 1 1 [facility] for referral (narrative)* Diagnostic Procedure Only (Routine) - Pending Review Specialty Diagnoses / Procedures Referred By Contac t Referred To Contact [facility] Diagnoses GDM, class A2 Antepartum multigravida of advanced maternal age Procedures OBSTETRIC ULTRASOUND WHI US PREG UTERUS AFTER 1ST TRIMEST GESTATION Angie Padilla APRN.CNM [address] [place] [address] [address] Referral ID Status Reason Start Date Expiration Date Visits Requested Visits Authorized [id number] Pending Review Auto-Generat ed Referral 2 06/13/2023 1 1 [facility] for referral (narrative)* Outpatient Procedure (Routine) - Pending Review Specialty Diagnoses / Procedures Referred By Contac t Referred To Contact [facility] Diagnoses 34 weeks gestation of Antepartum multigravida of advanced maternal age GDM, class A2 Procedures NON-STRESS TEST NON-STRESS TEST Angie Padilla APRN.CNM [address] [place] [address] [address] Referral ID Status Reason Start Date Expiration Date Visits Requested Visits Authorized [id number] Pending Review Auto-Generat ed Referral 2 06/23/2023 1 1 [facility] for referral (narrative)* Diagnostic Procedure Only (Routine) - Pending Review Specialty Diagnoses / Procedures Referred By Contac t Referred To Contact [facility] Diagnoses Encounter for screening mammogram for breast cancer Procedures YOSEF SCREENING SCREENING MAMMOGRAPHY BI 2-VIEW BREAST INC CAD Micky Frederick MD [address] [place] [address] [facility] [address] [place] [address] Referral ID Status Reason Start Date Expiration Date Visits Requested Visits Authorized [id number] Pending Review Auto-Generat ed Referral 07/28/2022 08/27/2023 1 1 [facility] for referral (narrative)* Diagnostic Procedure Only (Routine) - Pending Review Specialty Diagnoses / Procedures Referred By Cesar t Referred To Contact [facility] Diagnoses Encounter for screening mammogram for breast cancer Procedures YOSEF SCREENING SCREENING MAMMOGRAPHY BI 2-VIEW BREAST INC CAD Micky Frederick MD [address] [place] [address] [facility] [address] [place] [id number] Referral ID Status Reason Start Date Expiration Date Visits Requested Visits Authorized [id number] Pending Review Auto-Generat ed Referral 07/05/2023 08/03/2024 1 1 [facility] for visit Narrative* Diagnostic Procedure Only (Routine) - Closed Specialty Diagnoses / Procedures Referred By Cesar t Referred To Contact [facility] Diagnoses Antepartum multigravida of advanced maternal age Procedures OBSTETRIC ULTRASOUND WHI US PREG UTERUS AFTER 1ST TRIMEST GESTATION Bertram Quintana MD [address] [place] [address] [facility] [address] [place] [id number] Referral ID Status Reason Start Date Expiration Date V isits Requested Visits Authorized [id number] Closed Auto-Generate d Referral 01/18/2022 01/18/2023 1 1 Reason for Referral Specialty Diagnoses / Procedures Referred By Cesar t Referred To Contact Diagnoses Antepartum multigravida of advanced maternal age Procedures CONSULT TO MATERNAL MEDI OFFICE/OUTPATIENT [facility] MDM 60-74 MINUTES Bertram Quintana MD [address] [place] [address] Referral ID Status Reason Start Date Expiration Date Visits Requested Visits Authorized [id number] Authorized PCP Requested Referral Auto-Generate d Referral 12/21/2021 12/21/2022 1 1 Specialty Diagnoses / Procedures Referred By Contskip t Referred To Contact [facility] Diagnoses Antepartum multigravida of advanced maternal age Procedures NUCHAL TRANSLUCENCY WHI US NUCHAL TRANSLUCENCY 1ST GESTATION Bertram Quintana MD [address] [place] [address] [facility] [address] [place] [address] Referral ID Status Reason Start Date Expiration Date Visits Requested Visits Authorized [id number] Authorized Auto-Generat ed Referral 12/21/2021 12/21/2022 1 1 Health Concerns Problem Noted Date OB Reminders 12/21/2021 Problem Noted Date OB Reminders 12/21/2021 Problem Noted Date OB Reminders 12/21/2021 Problem Noted Date OB Reminders 12/21/2021 Problem Noted Date OB Reminders 12/21/2021 Problem Noted Date OB Reminders 12/21/2021 Problem Noted Date OB Reminders 12/21/2021 Problem Noted Date OB Reminders 12/21/2021 Problem Noted Date OB Reminders 12/21/2021 Problem Noted Date OB Reminders 12/21/2021 Problem Noted Date OB Reminders 12/21/2021 Problem Noted Date OB Reminders 12/21/2021 Problem Noted Date OB Reminders 12/21/2021 Problem Noted Date OB Reminders 12/21/2021 Problem Noted Date OB Reminders 12/21/2021 Problem Noted Date OB Reminders 12/21/2021 Problem Noted Date OB Reminders 12/21/2021 Problem Noted Date OB Reminders 12/21/2021 Problem Noted Date OB Reminders 12/21/2021 Problem Noted Date OB Reminders 12/21/2021 Summary Purpose Family History No Family History Records Found Advance Directives No Advanced Directives Records Found Additional Source Comments Source Comments (unrecognize d section and content) In the event this informatio n is protected by the Federal Confidentiality of Alcohol and Drug Abuse Patient Records regulations: The Federal rules restrict any use of the information to criminally investigate or prosecute any alcohol or drug abuse patient.In the event this information is protected by the Federal Confidentiality of Alcohol and Drug Abuse Patient Records regulations: The Federal rules restrict any use of the information to criminally investigate or prosecute any alcohol or drug abuse patient.In the event this information is protected by the Federal Confidentiality of Alcohol and Drug Abuse Patient Records regulations: The Federal rules restrict any use of the information to criminally investigate or prosecute any alcohol or drug abuse patient.In the event this information is protected by the Federal Confidentiality of Alcohol and Drug Abuse Patient Records regulations: The Federal rules restrict any use of the information to criminally investigate or prosecute any alcohol or drug abuse patient.In the event this information is protected by the Federal Confidentiality of Alcohol and Drug Abuse Patient Records regulations: The Federal rules restrict any use of the information to criminally investigate or prosecute any alcohol or drug abuse patient.In the event this information is protected by the Federal Confidentiality of Alcohol and Drug Abuse Patient Records regulations: The Federal rules restrict any use of the information to criminally investigate or prosecute any alcohol or drug abuse patient.In the event this information is protected by the Federal Confidentiality of Alcohol and Drug Abuse Patient Records regulations: The Federal rules restrict any use of the information to criminally investigate or prosecute any alcohol or drug abuse patient.In the event this information is protected by the Federal Confidentiality of Alcohol and Drug Abuse Patient Records regulations: The Federal rules restrict any use of the information to criminally investigate or prosecute any alcohol or drug abuse patient.In the event this information is protected by the Federal Confidentiality of Alcohol and Drug Abuse Patient Records regulations: The Federal rules restrict any use of the information to criminally investigate or prosecute any alcohol or drug abuse patient.In the event this information is protected by the Federal Confidentiality of Alcohol and Drug Abuse Patient Records regulations: The Federal rules restrict any use of the information to criminally investigate or prosecute any alcohol or drug abuse patient.In the event this information is protected by the Federal Confidentiality of Alcohol and Drug Abuse Patient Records regulations: The Federal rules restrict any use of the information to criminally investigate or prosecute any alcohol or drug abuse patient.In the event this information is protected by the Federal Confidentiality of Alcohol and Drug Abuse Patient Records regulations: The Federal rules restrict any use of the information to criminally investigate or prosecute any alcohol or drug abuse patient.In the event this information is protected by the Federal Confidentiality of Alcohol and Drug Abuse Patient Records regulations: The Federal rules restrict any use of the information to criminally investigate or prosecute any alcohol or drug abuse patient.In the event this information is protected by the Federal Confidentiality of Alcohol and Drug Abuse Patient Records regulations: The Federal rules restrict any use of the information to criminally investigate or prosecute any alcohol or drug abuse patient.In the event this information is protected by the Federal Confidentiality of Alcohol and Drug Abuse Patient Records regulations: The Federal rules restrict any use of the information to criminally investigate or prosecute any alcohol or drug abuse patient.In the event this information is protected by the Federal Confidentiality of Alcohol and Drug Abuse Patient Records regulations: The Federal rules restrict any use of the information to criminally investigate or prosecute any alcohol or drug abuse patient.In the event this information is protected by the Federal Confidentiality of Alcohol and Drug Abuse Patient Records regulations: The Federal rules restrict any use of the information to criminally investigate or prosecute any alcohol or drug abuse patient.In the event this information is protected by the Federal Confidentiality of Alcohol and Drug Abuse Patient Records regulations: The Federal rules restrict any use of the information to criminally investigate or prosecute any alcohol or drug abuse patient.In the event this information is protected by the Federal Confidentiality of Alcohol and Drug Abuse Patient Records regulations: The Federal rules restrict any use of the information to criminally investigate or prosecute any alcohol or drug abuse patient.In the event this information is protected by the Federal Confidentiality of Alcohol and Drug Abuse Patient Records regulations: The Federal rules restrict any use of the information to criminally investigate or prosecute any alcohol or drug abuse patient.In the event this information is protected by the Federal Confidentiality of Alcohol and Drug Abuse Patient Records regulations: The Federal rules restrict any use of the information to criminally investigate or prosecute any alcohol or drug abuse patient.In the event this information is protected by the Federal Confidentiality of Alcohol and Drug Abuse Patient Records regulations: The Federal rules restrict any use of the information to criminally investigate or prosecute any alcohol or drug abuse patient.In the event this information is protected by the Federal Confidentiality of Alcohol and Drug Abuse Patient Records regulations: The Federal rules restrict any use of the information to criminally investigate or prosecute any alcohol or drug abuse patient.In the event this information is protected by the Federal Confidentiality of Alcohol and Drug Abuse Patient Records regulations: The Federal rules restrict any use of the information to criminally investigate or prosecute any alcohol or drug abuse patient.In the event this information is protected by the Federal Confidentiality of Alcohol and Drug Abuse Patient Records regulations: The Federal rules restrict any use of the information to criminally investigate or prosecute any alcohol or drug abuse patient.In the event this information is protected by the Federal Confidentiality of Alcohol and Drug Abuse Patient Records regulations: The Federal rules restrict any use of the information to criminally investigate or prosecute any alcohol or drug abuse patient.In the event this information is protected by the Federal Confidentiality of Alcohol and Drug Abuse Patient Records regulations: The Federal rules restrict any use of the information to criminally investigate or prosecute any alcohol or drug abuse patient.In the event this information is protected by the Federal Confidentiality of Alcohol and Drug Abuse Patient Records regulations: The Federal rules restrict any use of the information to criminally investigate or prosecute any alcohol or drug abuse patient.In the event this information is protected by the Federal Confidentiality of Alcohol and Drug Abuse Patient Records regulations: The Federal rules restrict any use of the information to criminally investigate or prosecute any alcohol or drug abuse patient.In the event this information is protected by the Federal Confidentiality of Alcohol and Drug Abuse Patient Records regulations: The Federal rules restrict any use of the information to criminally investigate or prosecute any alcohol or drug abuse patient.In the event this information is protected by the Federal Confidentiality of Alcohol and Drug Abuse Patient Records regulations: The Federal rules restrict any use of the information to criminally investigate or prosecute any alcohol or drug abuse patient.In the event this information is protected by the Federal Confidentiality of Alcohol and Drug Abuse Patient Records regulations: The Federal rules restrict any use of the information to criminally investigate or prosecute any alcohol or drug abuse patient.In the event this information is protected by the Federal Confidentiality of Alcohol and Drug Abuse Patient Records regulations: The Federal rules restrict any use of the information to criminally investigate or prosecute any alcohol or drug abuse patient.In the event this information is protected by the Federal Confidentiality of Alcohol and Drug Abuse Patient Records regulations: The Federal rules restrict any use of the information to criminally investigate or prosecute any alcohol or drug abuse patient.In the event this information is protected by the Federal Confidentiality of Alcohol and Drug Abuse Patient Records regulations: The Federal rules restrict any use of the information to criminally investigate or prosecute any alcohol or drug abuse patient.In the event this information is protected by the Federal Confidentiality of Alcohol and Drug Abuse Patient Records regulations: The Federal rules restrict any use of the information to criminally investigate or prosecute any alcohol or drug abuse patient.In the event this information is protected by the Federal Confidentiality of Alcohol and Drug Abuse Patient Records regulations: The Federal rules restrict any use of the information to criminally investigate or prosecute any alcohol or drug abuse patient. Reason for Visit (unrecogniz ed section and content) Specialty Diagnoses / Procedures Referred By Cesar huynh Referred To Contact [facility] Diagnoses OB Procedures OFFICE/OUTPATIENT ESTABLISHED LOW MDM 20-29 MIN EST WHI OB Kelli Arnett MD [address] [place] [address] Carmelita Parikh MD [address] [place] [address] Referral ID Status Reason Start Date Expiration Date Visits Re quested Visits Authorized [id number] Closed 07/15/2022 08/27/2022 2 2 Reason Onset Date Comments Care 07/06/2022 Specialty Diagnoses / Procedures [facility] To [facility] Diagnoses ob Procedures [facility] OB 1ST EXAM Self Bertram Quintana MD [address] [place] [address] Referral ID Status Reason Start Date Expiration Date V isits Requested Visits Authorized [id number] Authorized 08/28/2021 08/27/2022 99 99 Reason Onset Date Comments Care 06/23/2022 Specialty Diagnoses / Procedures [facility] Ref[facility] To Contact [facility] Diagnoses ob Procedures [facility] OB 1ST EXAM Self Bertram Quintana MD [address] [place] [address] Reason Onset Date Comments Care 06/10/2022 Reason Onset Date Comments Care 05/12/2022 Reason Onset Date Comments Care 01/18/2022 Reason Comments +UPT Reason Comments Care Reason Comments Initial OB Visit Reason Comments Outside Labs Results Reason Comments US Specialty Diagnoses / Procedures [facility] Referred To Contact [facility] Diagnoses Antepartum multigravida of advanced maternal age Procedures NUCHAL TRANSLUCENCY WHI US NUCHAL TRANSLUCENCY 1ST GESTATION Bertram Quintana MD [address] [place] [address] [facility] [address] [place] [address] Referral ID Status Reason Start Date Expiration Date V isits Requested Visits Authorized [id number] Closed Auto-Generate d Referral 12/21/2021 12/21/2022 1 1 Reason Comments Maternity 21 results Reason Onset Date Comments Care 02/17/2022 Reason Comments Results Reason Onset Date Comments Care 03/11/2022 Specialty Diagnoses / Procedures [facility] Referred To Contact [facility] Diagnoses Supervision of elderly multigravida, unspecified trimester OB / anatomy ultrasound Procedures US PREG UTERUS AFTER 1ST TRIMEST GESTATION EST I OB Bertram Quintana MD [address] [place] [address] Angie Padilla APRN.CNM [address] [place] [address] Referral ID Status Reason Start Date Expiration Date Visits Re quested Visits Authorized [id number] Closed 08/28/2021 08/27/2022 1 1 Reason Onset Date Comments Care 04/12/2022 Specialty Diagnoses / Procedures Referred By Contac t Referred To Contact [facility] Diagnoses ob Procedures [facility] OB 1ST EXAM MD Manuel Gomez Karmon, MD [address] [place] [address] Reason Comments Medication Problem Reason Onset Date Comments Care 05/25/2022 Specialty Diagnoses / Procedures Referred By Contac t Referred To Contact Diagnoses Antepartum multigravida of advanced maternal age Procedures CONSULT TO MATERNAL MEDI OFFICE/OUTPATIENT NEW HIGH MDM 60-74 MINUTES Bertram Quintana MD [address] [place] [address] Referral ID Status Reason Start Date Expiration Date V isits Requested Visits Authorized [id number] Closed PCP Requested Referral Auto-Generated Referral 12/21/2021 12/21/2022 1 1 Specialty Diagnoses / Procedures Referred By Contac t Referred To Contact [facility] Diagnoses Antepartum multigravida of advanced maternal age 30 weeks gestation of GDM, class A2 Procedures OBSTETRIC ULTRASOUND WHI US PREG UTERUS AFTER 1ST TRIMEST GESTATION Bere Mccauley MD [address] [place] [address] [facility] [address] [place] [address] Referral ID Status Reason Start Date Expiration Date V isits Requested Visits Authorized [id number] Open Auto-Generate d Referral 05/25/2022 05/25/2023 1 1 Reason Comments Orders Reason Comments Weekly NST Specialty Diagnoses / Procedures Referred By Contac t Referred To Contact [facility] Diagnoses GDM, class A2 Antepartum multigravida of advanced maternal age Procedures OBSTETRIC ULTRASOUND WHI US PREG UTERUS AFTER 1ST TRIMEST GESTATION Angie Padilla APRN.CNM [address] [place] [address] [facility] [address] [place] [address] Referral ID Status Reason Start Date Expiration Date V isits Requested Visits Authorized [id number] Closed Auto-Generate d Referral 06/13/2022 06/13/2023 1 1 Reason Comments Patient Question Reason Onset Date Comments Care 07/15/2022 Referral ID Status Reason Start Date Expiration Date V isits Requested Visits Authorized [id number] Authorized 07/15/2022 08/27/2022 2 2 Reason Comments Ob Delivery Note Reason Comments FMLA Paperwork Specialty Diagnoses / Procedures Referred By Contac t Referred To Contact [facility] Diagnoses Follow-up exam 6Wk Post Procedures OFFICE/OUTPATIENT ESTABLISHED HIGH MDM 40-54 MIN POST Bertram Quintana MD [address] [place] [address] Bertram Quintana MD [address] [place] [address] Referral ID Status Reason Start Date Expiration Date Visits Re quested Visits Authorized [id number] Closed 08/24/2022 08/27/2023 1 1 Reason Comments Forms/letter Care Teams (unrecognized sec tion and content) Photoengraving Etcher Apprentice Relationship Specialty Start Date End Date Micky Frederick MD [address] [place], [place] [id number] [phone] PCP - General Family Practice 06/22/21 Photoengraving Etcher Apprentice Relationship Specialty Start Date End Date Micky Frederick MD [address] [place], [place] [id number] [phone] PCP - General Family Practice 06/22/21 Photoengraving Etcher Apprentice Relationship Specialty Start Date End Date Micky Frederick MD [address] [place] [address] PCP - General Family Practice 06/22/21 Photoengraving Etcher Apprentice Relationship Specialty Start Date End Date Micky Frederick MD [address] [facility] [place] [address] PCP - General Family Practice 06/22/21 Photoengraving Etcher Apprentice Relationship Specialty Start Date End Date Micky Frederick MD [address] [facility] [place] [address] PCP - General Family Practice 06/22/21 Photoengraving Etcher Apprentice Relationship Specialty Start Date End Date Micky Frederick MD [facility] [place] [address] PCP - General Family Practice 06/22/21 Photoengraving Etcher Apprentice Relationship Specialty Start Date End Date Micky Frederick MD [address] [place] [address] [place] [address] PCP - General Family Practice 06/22/21 Photoengraving Etcher Apprentice Relationship Specialty Start Date End Date Micky Frederick MD [address] [place] [address] PCP - General Family Practice 06/22/21 Photoengraving Etcher Apprentice Relationship Specialty Start Date End Date Micky Frederick MD [facility] [place] [address] PCP - General Family Practice 06/22/21 Photoengraving Etcher Apprentice Relationship Specialty Start Date End Date Micky Frederick MD [facility] [place] [address] PCP - General Family Medicine 06/22/21 Photoengraving Etcher Apprentice Relationship Specialty Start Date End Date Micky Frederick MD [facility] [place] [address] PCP - General Family Medicine 06/22/21 Photoengraving Etcher Apprentice Relationship Specialty Start Date End Date Micky Frederick MD [facility] [place] [address] PCP - General Family Medicine 06/22/21 Photoengraving Etcher Apprentice Relationship Specialty Start Date End Date Micky Frederick MD [address] [facility] [place] [address] PCP - General Family Medicine 06/22/21 Photoengraving Etcher Apprentice Relationship Specialty Start Date End Date Micky Frederick MD [address] [facility] [place] [address] PCP - General Family Medicine 06/22/21 Photoengraving Etcher Apprentice Relationship Specialty Start Date End Date Micky Frederick MD [address] [facility] [place] [address] PCP - General Family Medicine 06/22/21 Photoengraving Etcher Apprentice Relationship Specialty Start Date End Date Micky Frederick MD [facility] [place] [address] PCP - General Family Medicine 06/22/21 Photoengraving Etcher Apprentice Relationship Specialty Start Date End Date Micky Frederick MD 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 This clinical summary was aggregated from multiple sources. Caution should be exercised in using it in the provision of clinical care. This summary normalizes information from multiple sources, and as a consequence, information in this document may materially change the coding, format and clinical context of patient data. In addition, data may be omitted in some cases. CLINICAL DECISIONS SHOULD BE BASED ON THE PRIMARY CLINICAL RECORDS. [employer] [facility] [facility]. provides no warranty or guarantee of the accuracy or completeness of information in this document.
[2023-09-24 04:33] LABS: AST(SGOT) 287 U/L (15-37); Alanine Aminotransfer ALT/SGPT 161 U/L (13-56); Albumin, Serum 3.8 g/dL (3.2-5.0); Alkaline Phosphatase 328 U/L (45-117); Bilirubin, Direct 0.22 mg/dL (0.00-0.30); Globulin 3.6 g/dL (2.2-4.2); Lipase 56 U/L (13-75); Protein, Total 7.4 g/dL (6.4-8.2)
--- NOTE | 2023-09-24 04:54 | US_ITS ---
EXAM: Ultrasound abdomen, RUQ. HISTORY: RUQ pain, clinical Stanford sign, elevated transaminases. COMPARISON: None. LIMITATIONS: None. LIVER: Mildly enlarged measuring 19.5 cm. GALLBLADDER Size: Moderately distended measuring 4 cm in transverse dimension. Stones/sludge: Multiple small gallstones. Wall thickness: Thickened measuring up to approximately 4 to 5 mm. The 10 mm measurement on image 53 is likely an over estimation including adjacent fat. Pericholecystic fluid: Questionable trace fluid. Sonographic Stanford sign: Positive. EXTRAHEPATIC BILE DUCTS: The partially visualized common duct is normal in caliber measuring 3 mm. PANCREAS: Partially visualized. The visualized portion is normal. RIGHT KIDNEY: Normal. OTHER: None. CONCLUSION: Gallstones with evidence of acute cholecystitis. Electronically Signed: Angel Lemus MD at 6:15 EST , US/Gallbladder IMPRESSION: undefined
--- NOTE | 2023-09-24 05:01 | ED.RN ---
Pt refused morphine for pain 11/04. This RN went to waste medication with Kylah GUADALUPE. [place] did not require a witness for waste of medication. Pharmacy notified, medication wasted with Kylah GUADALUPE as witness.
--- NOTE | 2023-09-24 06:30 | NURSING ---
NO OLD EKGS
--- NOTE | 2023-09-24 06:39 | NURSING ---
MED SURG YULY CHOLELITHIASIS WITH ACUTE CHOLECYSTITIS
[2023-09-24 06:42] LABS: Internal QC Validated? YES +Cl - CLEAR BKGD; Pregnancy, Serum, hCG Quali. NEGATIVE Negative
[2023-09-24] MEDS: Piperacil/Tazobactam 4.5 GM in 0.9% Normal Saline (100mL MB+) 100 ML IV (06:43)
--- OUTSIDE RECORDS SUMMARY | 2023-09-24 06:56 | XMS RPT_ITS | CCD ---
Author Name Unknown Address [address] [place] [address] Organization [facility] Care Team Providers Care Store Detective Name Role Phone Micky Frederick MD Primary [...] agent; Translations: [ADHESIVE] Drug Allergy 06-03-2021 Unknown [facility] Medications Completed/Discontinued Medications Medication Drug Class(es) Dates [...] 72.12 kg Bertram Quintana MD Work Phone: [facility] 09-06-2022 09:00-0500 Diastolic blood pressure 70 mm[Hg] Bertram Quintana MD Work Phone: [facility] 09-06-2022 09:00-0500 Systolic blood pressure 98 mm[Hg] Bertram Quintana MD Work Phone: [facility] 07-22-2022 10:54-0500 Body weight 80.88 kg Bertram Quintana MD Work Phone: [facility] 07-22-2022 10:54-0500 Diastolic blood pressure 62 mm[Hg] Bertram Quintana MD Work Phone: [facility] 07-22-2022 10:54-0500 Heart rate 81 /min Bertram Quintana MD Work Phone: [facility] 07-22-2022 10:54-0500 SaO2% (BldA) [Mass fraction] 100 % Bertram Quintana MD Work Phone: [facility] 07-22-2022 10:54-0500 Systolic blood pressure 98 mm[Hg] Bertram Quintana MD Work Phone: [facility] 07-15-2022 09:04-0500 Body height 152.4 cm Bertram Quintana MD Work Phone: [facility] 07-15-2022 09:04-0500 Body weight 80.74 kg Bertram Quintana MD Work Phone: [facility] 07-15-2022 09:04-0500 Diastolic blood pressure 62 mm[Hg] Bertram Quintana MD Work Phone: [facility] 07-15-2022 09:04-0500 Systolic blood pressure 118 mm[Hg] Bertram Quintana MD Work Phone: [facility] 07-06-2022 08:17-0500 Body weight 78.93 kg Kelli Arnett MD Work Phone: [facility] 07-06-2022 08:17-0500 Diastolic blood pressure 72 mm[Hg] Kelli Arnett MD Work Phone: [facility] 07-06-2022 08:17-0500 Systolic blood pressure 114 mm[Hg] Kelli Arnett MD Work Phone: [facility] 06-23-2022 13:56-0400 Body weight 79.83 kg Angie Plotts KILN CHARGER.CNM Work Phone: [facility] 06-23-2022 13:56-0400 Diastolic blood pressure 88 mm[Hg] Angie Plotts KILN CHARGER.CNM Work Phone: [facility] 06-23-2022 13:56-0400 Systolic blood pressure 128 mm[Hg] Angie Plotts KILN CHARGER.CNM Work Phone: [facility] 06-10-2022 13:26-0400 Body weight 78.93 kg Angie Plotts KILN CHARGER.CNM Work Phone: [facility] 06-10-2022 13:26-0400 Diastolic blood pressure 66 mm[Hg] Angie Plotts KILN CHARGER.CNM Work Phone: [facility] 06-10-2022 13:26-0400 Systolic blood pressure 102 mm[Hg] Angie Plotts KILN CHARGER.CNM Work Phone: [facility] 05-25-2022 13:19-0400 Body weight 78.83 kg Bere Mccauley MD Work Phone: [facility] 05-25-2022 13:19-0400 Diastolic blood pressure 74 mm[Hg] Bere Mccauley MD Work Phone: [facility] 05-25-2022 13:19-0400 Systolic blood pressure 110 mm[Hg] Bere Mccauley MD Work Phone: [facility] 05-12-2022 08:39-0400 Body weight 77.66 kg Bere Mccauley MD Work Phone: [facility] 05-12-2022 08:39-0400 Diastolic blood pressure 62 mm[Hg] Bere Mccauley MD Work Phone: [facility] 05-12-2022 08:39-0400 Systolic blood pressure 100 mm[Hg] Bere Mccauley MD Work Phone: [facility] 04-12-2022 08:35-0400 Body weight 77.11 kg Kelli Arnett MD Work Phone: [facility] 04-12-2022 08:35-0400 Diastolic blood pressure 62 mm[Hg] Kelli Arnett MD Work Phone: [facility] 04-12-2022 08:35-0400 Systolic blood pressure 108 mm[Hg] Kelli Arnett MD Work Phone: [facility] 03-11-2022 14:50-0400 Body weight 74.39 kg Angie Padilla KILN CHARGER.CNM Work Phone: [facility] 03-11-2022 14:50-0400 Diastolic blood pressure 60 mm[Hg] Angie Plotts KILN CHARGER.CNM Work Phone: [facility] 03-11-2022 14:50-0400 Systolic blood pressure 110 mm[Hg] Angie Plotts KILN CHARGER.CNM Work Phone: [facility] 02-17-2022 16:35-0400 Body weight 73.48 kg Angie Padilla KILN CHARGER.CNM Work Phone: [facility] 02-17-2022 16:35-0400 Diastolic blood pressure 74 mm[Hg] Angie Padilla KILN CHARGER.CNM Work Phone: [facility] 02-17-2022 16:35-0400 Systolic blood pressure 120 mm[Hg] Angie Padilla KILN CHARGER.CNM Work Phone: [facility] 01-18-2022 15:08-0400 Body weight 73.03 kg Hansel Farr MD Work Phone: [facility] 01-18-2022 15:08-0400 Diastolic blood pressure 74 mm[Hg] Hansel Farr MD Work Phone: [facility] 01-18-2022 15:08-0400 Systolic blood pressure 120 mm[Hg] Hansel Farr MD Work Phone: [facility] 12-21-2021 10:03-0400 Body height 151 cm Bertram Quintana MD Work Phone: [facility] 12-21-2021 10:03-0400 Body weight 73.21 kg Bertram Quintana MD Work Phone: [facility] 12-21-2021 10:03-0400 Diastolic blood pressure 72 mm[Hg] Bertrma Quintana MD Work Phone: [facility] 12-21-2021 10:03-0400 Systolic blood pressure 118 mm[Hg] Bertram Quintana MD Work Phone: [facility] Encounters Encounter Date Encounter Type Care Provider Facility Start: 07-05-2023 ambulatory Micky owens MD Work Phone: [facility] [place] Start: 06-26-2023 ambulatory Bertram Bentley Work Phone: OB/Gynecology Procedures Date Procedure Procedure Detail Performing Clinician Start: 07-22-2022 URINE OB DIP B/O Bertram Quintana MD Work Phone: Start: 07-15-2022 URINE OB DIP B/O Bertram Quintana MD Work Phone: Start: 07-06-2022 URINE OB DIP B/O Mckenna Arnett MD Work Phone: Start: 07-06-2022 Us preg uterus after 1st trimest 08/28 gestation Angie Padilla KILN CHARGER.CNM Work Phone: Start: 06-23-2022 URINE OB DIP B/O Solrito Padilla KILN CHARGER.CNM Work Phone: Start: 06-10-2022 URINE OB DIP [...] 02-17-2022 URINE OB DIP B/O Flor Padilla KILN CHARGER.CNM Work Phone: Start: 01-18-2022 URINE OB DIP B/O Bertram Quintana MD Work Phone: Start: 01-18-2022 Us nuchal translucency gestation Bertram Quintana MD Work Phone: Start: 12-23-2021 CBCDIF (EXTERNAL) [facility] Start: 12-23-2021 Hemoglobin A1c/Hemoglobin.total in Blood [facility] Provider H/O: section History of delivery, currently Bertram Quintana MD Work Phone: H/O: section History of delivery, currently Angie Padilla KILN CHARGER.CNM Work Phone: Plan of Treatment Date Care Activity Detail Author Start: 05-12-2032 Urine microalbumin profile [facility] Start: 04-09-2029 Urine microalbumin profile DTAP,TDAP,TD (3 - Td or Tdap) [facility] Start: 09-06-2027 HPV TESTING HPV TESTING [facility] Start: 09-06-2027 PAP TESTING PAP TESTING [facility] Start: 07-18-2024 HPV TESTING HPV TESTING [facility] Start: 07-18-2024 PAP TESTING PAP TESTING [facility] Start: 04-28-2023 Covid-19 Vaccine () Covid-19 Vaccine () [facility] Start: 04-28-2023 Influenza vaccination Influenza Vaccine (#1) [facility] Start: 08-28-2022 DEPRESSION ASSESSMENT DEPRESSION ASSESSMENT [facility] Start: 2022 Mammography [facility] Start: 06-13-2022 End: 06-13-2023 OBSTETRIC ULTRASOUND WHI OBSTETRIC ULTRASOUND I Anc Imaging Routine GDM, class A2 Antepartum multigravida of advanced maternal age Expected: 06/13/2022, Expires: 06/13/2023 [facility] Work Phone: Immunizations Immunization Date Immunization Notes Care Provider [facility] 05-27-2022 influenza virus vaccine, unspecified formulation Bertram Quintana MD Work Phone: [facility] 05-12-2022 tetanus toxoid, redu osman diphtheria toxoid, and acellular pertussis vaccine, adsorbed Bere Mccauley MD Work Phone: [facility] 04-09-2019 tetanus toxoid, redu osman diphtheria toxoid, and acellular pertussis vaccine, adsorbed Argenis Dyer ANCELMO.CNM Work Phone: [facility] 10-04-2016 tetanus toxoid, redu osman diphtheria toxoid, and acellular pertussis vaccine, adsorbed Argenis Dyer ANCELMO.CNM Work Phone: [facility] Work Phone: Payers Date Payer Category Payer Private Health Insurance [facility] Kenn [facility] Bilibot [id number] 2022-Present [phone] [address] [place] [address] PPO [id number] 2019 Unknown MMO MMO TPA [id number] 2019-Present [address] [place] [address] PPO [id number] 2019 Unknown MMO MMO TPA [id number] 2019-Present [address] [place] [address] PPO [id number] 2019 Unknown [id number] Social History Date Type Detail Facility Start: 05-12-2022 Tobacco smoking stat us SDIS Never smoked tobacco [facility] Start: 06-22-2021 End: 09-06-2022 Alcohol intake Current drinker of alcohol (finding) [facility] Start: 05-10-2016 History SDOH Alcohol Comment Rarely, not while [facility] Start: 1980 Sex Assigned At Not on file [facility] Start: 11-19-2021 End: 07-15-2022 Exposure to SARS-CoV-2 (event) Not sure [facility] Start: 12-09-2021 Education 17 [facility] Start: 11-07-2021 [facility] Start: 05-12-2022 Tobacco use and exposure Smoke less tobacco non-user [facility] Start: 09-06-2022 End: 09-10-2022 History of Social function [facility] Start: 09-06-2022 End: 09-10-2022 Tobacco use panel [facility] National Score (1-10 0), lower number is lower risk 53 [facility] Medical Equipment Procedure Code Equipment Code Equipment [...] Note Patient Outreach (IN TMMN) ZAINAB SANTIAGO ([id number]) 1980 F Date Time Provider Department 07/05/23 MICKY FREDERICK During your visit today, we recorded the following information about you: Allergies As of Date: 07/05/2023 Noted Allergy Reaction ADHESIVE 06/03/2021 16 - Unknown Date Reviewed: 09/06/2022 Reviewed by: Bertram Quintana MD - Fully Assessed Visit Diagnosis:Encounter for screening mammogram for breast cancer [Z12.31] Order(s):[facility] SCREENING [[id number]] Order #: [id number] FUTURE Prescriptions as of 07/10/2023 - Ferrous [...] Encounter Status:Closed by MARGOTH STARKEY on 07/10/23 [facility] 06-23-2023 Miscellaneous Notes Formattin g of this note might be different from the original. Form signed by provider and faxed. Lexie Richmond RN Noted & will sign Bertram Quintana MD Received a fax from patient needing her Healthy Living Form signed by JAMES for her employer at [employer]. Patient last seen 08/2022 and has her annual exam with JAMES on 09/07/23. Form to JAMES to sign. Danya uReda RN documented in this encounter [facility] 10-26-2022 Note HNO ID: [id number] Author: Danya Rueda RN Service: ? Author Type: ? Type: Progress Notes Filed: 10/26/2022 2:47 PM Note Text: Received lab results from [facility] - Please review. Scan on 10/26/2022 1:53 PM by External Provider: Miscellaneous Lab [facility] 10-26-2022 History of Presen t illness Narrative Received lab results from [facility] - Please review. Scan on 10/26/2022 1:53 PM by External Provider: Miscellaneous Lab documented in this encounter [facility] 09-06-2022 Note HNO ID: [id number] Author: Bertram Quintana MD Service: ? Author [...] Menstrual pattern prior to : Regular periods [place] since delivery: Not resumed Depression: denies symptoms [...] PACKAGE UNSPECIFIED ORAL SURGERY PROCEDURE, BY REPORT [place] teeth extracted FAMILY HISTORY Problem Relation Age [...] external genitalia normal, normal [place]tholin's glands, urethra, [place]'s glands, no vulvar lesions, no cervical lesions, [...] H/o GDM - PP screening ordered at [facility] Bertram Quintana MD [facility] 09-06-2022 History of Presen t illness Narrative [...] Menstrual pattern prior to : Regular periods [place] since delivery: Not resumed Depression: denies symptoms [...] PACKAGE UNSPECIFIED ORAL SURGERY PROCEDURE, BY REPORT [place] teeth extracted FAMILY HISTORY Problem Relation Age [...] external genitalia normal, normal [place]tholin's glands, urethra, [place]'s glands, no vulvar lesions, no cervical lesions, [...] H/o GDM - PP screening ordered at [facility] Bertram Quintana MD documented in this encounter [facility] 08-09-2022 Miscellaneous Notes Formattin g of this note might be different from the original. FMLA paperwork completed, faxed to employer , scanned into EMR and filed in DEVELOPMENT ANALYST suite. Bernarda Henderson LPN FMLA return to work forms completed and placed on providers desk for signature. Bernarda Henderson LPN documented in this encounter [facility] 08-02-2022 Note HNO ID: [id number] Author: Bertram Quintana MD Service: ? Author [...] Level: 1 - N/A Bertram Quintana MD [facility] 07-28-2022 Miscellaneous Notes Formattin g of this note might be different from the original. [facility] paperwork completed, faxed to employer, scanned into EMR and filed in DEVELOPMENT ANALYST suite. Bernarda Henderson LPN [facility] paperwork completed and placed on providers desk for signature. Bernarda Henderson LPN Received [facility] paperwork. Pt had c/s today. Will reach out to patient via [employer] for dates of leave. Bernarda Henderson LPN documented in this encounter [facility] 07-28-2022 Note Patient Outreach (IN TMMN) ZAINAB SANTIAGO ([id number]) 1980 F Date Time Provider Department 07/28/22 MICKY FREDERICK During your visit today, we recorded the following information about you: Allergies As of Date: 07/28/2022 Noted Allergy Reaction ADHESIVE 06/03/2021 16 - Unknown Date Reviewed: 07/22/2022 Reviewed by: Bertram Quintana MD - Fully Assessed Visit Diagnosis:Encounter for screening mammogram for breast cancer [Z12.31] Order(s):[facility] SCREENING [[id number]] Order #: [id number] FUTURE Prescriptions as of 08/01/2022 - insulin [...] Anemia in [O99.019] 05/09/2022 Encounter Status:Closed by [email or web address] on 08/01/22 [facility] 07-26-2022 Note HNO ID: [id number] Author: Comfort Claros RN Service: ? Author Type: ? Type: Progress Notes Filed: 07/26/2022 3:25 PM Note Text: Patient delivered via by Dr. Quintana on 07/26/22 at [facility]. See OB history. Comfort Claros RN [facility] 07-26-2022 History of Presen t illness Narrative Patient delivered via by Dr. Quintana on 07/26/22 at [facility]. See OB history. Comfort Claros RN documented in this encounter [facility] 07-22-2022 Miscellaneous Notes Formattin g of this note might be different from the original. KJ - No VB/LOF/ctxs. Reports good FM. A&P: Pre-op for repeat today. Informed consent signed today. GDM - BS overall normal per patient. Continue NPH at bedtime. Reviewed labor & FM precautions Bertram Quintana MD documented in this encounter [facility] 07-22-2022 Instructions Christine Higgins Ma - 07/22/2022 10:49 AM EST SEQUENTIAL SCREENINGS The [facility] offers sequential screenings for women who are [...] It will require an appointment with our water and fire technician. This is not an ultrasound performed [...] the above symptoms, contact our office at [phone] and ask to speak with a nurse. After hours, you can call doctors registry at [phone] OR call [facility] at [phone] and ask to have the doctor investigation lieutenant paged. If you consider this an emergency, dial 9-2-9 or go to your nearest emergency department. NEED HELP? Are you dealing with a violent or abusive relationship? Are you a victim of rape or sexual assult? Call [facility] ([place]) 24 hour Crisis Hotline: 104.854.6857 or 122-446-0070. MANUAL Your Guide to a Healthy manual is now on-line. Visit [email or web address] [email or web address] to download your free copy documented in this encounter [facility] 07-15-2022 Miscellaneous Notes Formattin g of this [...] Labs: LFT's & bile acids ordered at [facility] to exclude cholestasis. Suspect itching is viral related. GDM - BS normal, continue NPH at bedtime Anemia - encouraged Fe & Regular PNV use Labor precautions reviewed, Kick counts reviewed. MOD - repeat Bertram Quintana MD documented in this encounter [facility] 07-15-2022 Instructions Christine Higgins Ma - 07/15/2022 8:55 AM EST SEQUENTIAL SCREENINGS The [facility] offers sequential screenings for women who are [...] It will require an appointment with our water and fire technician. This is not an ultrasound performed [...] the above symptoms, contact our office at [phone] and ask to speak with a nurse. After hours, you can call [facility] [facility] at [phone] OR call [facility] at [phone] and ask to have the doctor investigation lieutenant paged. If you consider this an emergency, dial 9-- or go to your nearest emergency department. NEED HELP? Are you dealing with a violent or abusive relationship? Are you a victim of rape or sexual assult? Call [facility] ([place]) 24 hour Crisis Hotline: 681.486.5091 or 614-557-8425. MANUAL Your Guide to a Healthy manual is now on-line. Visit [email or web address] [email or web address] to download your free copy documented in this encounter [facility] 07-11-2022 Miscellaneous Notes Formattin g of this note might be different from the original. Spoke with charge nurse Cyndi on L&D. Cyndi said to have patient call and ask to speak with charge nurse instead of legal secretary. Patient notified and will call today to schedule. Lexie Richmond RN I don't know. Usually sees KJ. I told her she didn't need one last week b/c had BPP but don't know why they won't schedule her. Fax new order is fine. Thanks. Kelli Arnett MD Pt calling and stated that she is having weekly NST at [facility], pt called this am and stated that she tried to call and schedule this for tomorrow and the L&D legal secretary stated that we need to call to given permission to schedule this. Was an order already sent over? I printed off the order, refaxed it and then contacted L&D. Bernarda Henderson LPN documented in this encounter [facility] 07-06-2022 Miscellaneous Notes Formattin g of this [...] Kelli Arnett M.D. documented in this encounter [facility] 07-06-2022 Instructions Charis Echavarria Vt - 07/06/2022 8:01 AM EST SEQUENTIAL SCREENINGS The [facility] offers sequential screenings for women who are [...] It will require an appointment with our water and fire technician. This is not an ultrasound performed [...] the above symptoms, contact our office at [phone] and ask to speak with a nurse. After hours, you can call doctors registry at [phone] OR call [facility] at [phone] and ask to have the doctor investigation lieutenant paged. If you consider this an emergency, dial 9- or go to your nearest emergency department. NEED HELP? Are you dealing with a violent or abusive relationship? Are you a victim of rape or sexual assult? Call [facility] ([place]) 24 hour Crisis Hotline: 538.298.7673 or 212-108-7974. MANUAL Your Guide to a Healthy manual is now on-line. Visit [email or web address] [email or web address] to download your free copy documented in this encounter [facility] 06-27-2022 Miscellaneous Notes Formattin g of this [...] schedule these herself because she was a [employer] [employer] employee. Even added on the fax cover sheet that patient was going to be calling to schedule weekly NSTs herself. Comfort Claros RN Patient 35w1d needs weekly NST's. Patient was told she could do them at [facility] because she works there. Patient called them and tried to set them up, but was told that our office needs to set them up. Patient last seen 06/23 and NST done on that day. Does order need to be faxed to L&D for NST's? Lxeie Richmond RN documented in this encounter [facility] 06-23-2022 History of Presen t illness Narrative [...] Angie Padilla APRN.CNM documented in this encounter [facility] 06-23-2022 Miscellaneous Notes Formattin g of this [...] in 1 week for NST (completing at [facility] when gets off work) and 2 weeks for follow up growth US and INA. Patient needs to be physician only patient due to GDM A2. Angie Padilla APRN.CNM documented in this encounter [facility] 06-23-2022 Instructions Aleah Lockwood Ma - 06/23/2022 1:49 PM EDT SEQUENTIAL SCREENINGS The [facility] offers sequential screenings for women who are [...] It will require an appointment with our water and fire technician. This is not an ultrasound performed [...] the above symptoms, contact our office at [phone] and ask to speak with a nurse. After hours, you can call doctors registry at [phone] OR call [facility] at [phone] and ask to have the doctor investigation lieutenant paged. If you consider this an emergency, dial 04-28- or go to your nearest emergency department. NEED HELP? Are you dealing with a violent or abusive relationship? Are you a victim of rape or sexual assult? Call [facility] ([place]) 24 hour Crisis Hotline: 936.229.3085 or 329-838-1393. MANUAL Your Guide to a Healthy manual is now on-line. Visit [email or web address] [email or web address] to download your free copy documented in this encounter [facility] 06-13-2022 Miscellaneous Notes Formattin g of this note might be different from the original. Orders signed. Angie Padilla APRN.CNM Please file growth u/s order so patient can schedule. Comfort Claros RN ----- Message from Bere Mccauley MD sent at 06/12/2022 5:44 PM EDT ----- Add to record Needs repeat growth US 4 weeks documented in this encounter [facility] 06-13-2022 Miscellaneous Notes Formattin g of this note might be different from the original. 33w1d 05/12 Office note states to repeat CBC at 32 weeks. [facility] lab order to CP to sign. Danya Rueda RN documented in this encounter [facility] 06-10-2022 Miscellaneous Notes Formattin g of this [...] Angie Padilla APRN.CNM documented in this encounter [facility] 06-10-2022 Instructions Aleah Lockwood Ma - 06/10/2022 1:03 PM EDT SEQUENTIAL SCREENINGS The [facility] offers sequential screenings for women who are [...] It will require an appointment with our water and fire technician. This is not an ultrasound performed [...] the above symptoms, contact our office at [phone] and ask to speak with a nurse. After hours, you can call doctors registry at [phone] OR call [facility] at [phone] and ask to have the doctor investigation lieutenant paged. If you consider this an emergency, dial 9--1 or go to your nearest emergency department. NEED HELP? Are you dealing with a violent or abusive relationship? Are you a victim of rape or sexual assult? Call [facility] ([place]) 24 hour Crisis Hotline: 428.713.8500 or 260-180-8674. MANUAL Your Guide to a Healthy manual is now on-line. Visit [email or web address] [email or web address] to download your free copy documented in this encounter [facility] 06-02-2022 Miscellaneous Notes Formattin g of this note might be different from the original. Patient notified To increase bedtime NPH by 4 units for a total of 12 units at bedtime. Med list udated Typically taken right before going to bed or 8 hours prior to when she wakes up documented in this encounter [facility] 05-26-2022 Miscellaneous Notes Formattin g of this note might be different from the original. Orders signed. Angie Padilla APRN.CNM 30w4d Patient needing insulin needles sent to [facility] retail pharmacy. RX for insulin was sent yesterday without needles. Thank you. Requested Prescriptions Pending Prescriptions Disp Refills insulin needles, DISPOSABLE, 31 gauge x 5/16 30 Each 3 Si Each daily at bedtime. Danya Rueda RN documented in this encounter [facility] 05-25-2022 Miscellaneous Notes Formattin g of this note might be different from the original. SW- Pt doing well. No ctx, vb, lof. Good FM. GDM: BG log reviewed and starting NPH 8 units at bedtime. Growth US and NST's ordered. Scheduled to get flu shot with work. RTO 2 wks. Bere Mccauley DO documented in this encounter [facility] 05-25-2022 Instructions Dori Celeste MA - 05/25/2022 1:13 PM EDT SEQUENTIAL SCREENINGS The [facility] offers sequential screenings for women who are [...] It will require an appointment with our water and fire technician. This is not an ultrasound performed [...] the above symptoms, contact our office at [phone] and ask to speak with a nurse. After hours, you can call doctors registry at [phone] OR call [facility] at [phone] and ask to have the doctor investigation lieutenant paged. If you consider this an emergency, dial 9--1 or go to your nearest emergency department. NEED HELP? Are you dealing with a violent or abusive relationship? Are you a victim of rape or sexual assult? Call [facility] ([place]) 24 hour Crisis Hotline: 731.683.8410 or 896-460-3326. MANUAL Your Guide to a Healthy manual is now on-line. Visit [email or web address] [email or web address] to download your free copy documented in this encounter [facility] 05-12-2022 Miscellaneous Notes Formattin g of this [...] Bere Mccauley DO documented in this encounter [facility] 05-12-2022 History of Presen t illness Narrative [...] severely ill: Yes Patient denies history of Guillain-Left Hand Syndrome (a severe paralytic illness): Yes Tdap Adacel injection was given without incident. See immunizations for details of immunizations administered today. VIS sheet provided: Yes Provider Bere Mccauley DO was present in office at time of injection. Dori Celeste MA documented in this encounter [facility] 05-12-2022 Instructions Dori Celeste MA - 05/12/2022 8:32 AM EDT SEQUENTIAL SCREENINGS The [facility] offers sequential screenings for women who are [...] It will require an appointment with our water and fire technician. This is not an ultrasound performed [...] the above symptoms, contact our office at [phone] and ask to speak with a nurse. After hours, you can call doctors registry at [phone] OR call [facility] at [phone] and ask to have the doctor investigation lieutenant paged. If you consider this an emergency, dial 9-1- or go to your nearest emergency department. NEED HELP? Are you dealing with a violent or abusive relationship? Are you a victim of rape or sexual assult? Call [facility] ([place]) 24 hour Crisis Hotline: 181.842.8317 or 503-679-5356. MANUAL Your Guide to a Healthy manual is now on-line. 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 Then we will send to KJ to file. Also let her know about anemia Needs iron for anemia. GCT is 193 which indicates GDM. Does not need a 3hr. 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 Bertram Quintana MD [id number] Received CBC and 1 hour glucose results from [employer] [employer]. Please review. Results and order for 3 hour glucose test to KJ to sign if appropriate. Patient does have h/o gestational diabetes with previous . Comfort Claros RN documented in this encounter [facility] documented as of this encounter (statuses as of 08/09/2022) [facility] History of Past illness Narrative* Problem Noted [...] 07/18/2019 Overview: 05/21/19 Hgb 11.7 Eleanor Bryant APRN.FINANCE ASSISTANT 04/12/19 Hgb 10.2 Fe sulfate 325 mg daily on Mondays, Wednesdays and Fridays. Repeat CBC in one month. Eleanor Bryant APRN.FINANCE ASSISTANT Abnormal glucose in , antepartum 201807/18/2019 Overview: 04/09/19 1 hr GCT 149. 3 hr GTT ordered. 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 TKRN Supervision of other normal 11/13/2018 12/04/2018 Overview: 11/13/18 - need to discuss CF screening - Bertram Quintana MD Female infertility 08/01/2018 11/13/2018 Overview: Added automatically from request for surgery [id number] Encounter for supervision of normal first in [...] of this encounter (statuses as of 09/06/2022) [facility] History of Past illness Narrative* Problem Noted [...] 07/18/2019 Overview: 05/21/19 Hgb 11.7 Eleanor Bryant APRN.FINANCE ASSISTANT 04/12/19 Hgb 10.2 Fe sulfate 325 mg [...] I have given patient contact information to Applico to check on insurance coverage. TKRN Supervision of other normal 11/13/2018 12/04/2018 Overview: 11/13/18 - need to discuss CF screening - Bertram Quintana MD Female infertility 08/01/2018 11/13/2018 Overview: Added automatically from request for surgery [id number] Encounter for supervision of normal first in [...] of this encounter (statuses as of 10/26/2022) [facility] History of Past illness Narrative* Problem Noted [...] 07/18/2019 Overview: 05/21/19 Hgb 11.7 Eleanor Bryant APRN.FINANCE ASSISTANT 04/12/19 Hgb 10.2 Fe sulfate 325 mg daily on Mondays, Wednesdays and Fridays. Repeat CBC in one month. Eleanor Bryant APRN.FINANCE ASSISTANT Abnormal glucose in , antepartum 04/10/2019 07/18/2019 Overview: 04/09/19 1 hr GCT 149. 3 hr GTT ordered. 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 TKRN Supervision of other normal 11/13/2018 12/04/2018 Overview: 11/13/18 - need to discuss CF screening - Bertram Quintana MD Female infertility 08/01/2018 9 Overview: Added automatically from request for surgery [id number] Encounter for supervision of normal first in [...] of this encounter (statuses as of 06/23/2023) [facility] History of Past illness Narrative* Problem Noted [...] 07/18/2019 Overview: 05/21/19 Hgb 11.7 Eleanor Bryant APRN.FINANCE ASSISTANT 04/12/19 Hgb 10.2 Fe sulfate 325 mg daily on Mondays, Wednesdays and Fridays. Repeat CBC in one month. Eleanor Bryant APRN.FINANCE ASSISTANT Abnormal glucose in , antepartum 04/10/2019 07/18/2019 Overview: 04/09/19 1 hr GCT 149. 3 hr GTT ordered. 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 TKRN Supervision of other normal 11/13/2018 12/04/2018 Overview: 11/13/18 - need to discuss CF screening - Bertram Quintana MD Female infertility 08/01/2018 9 Overview: Added automatically from request for surgery [id number] Encounter for supervision of normal first in [...] of this encounter (statuses as of 06/26/2023) [facility] History of Past illness Narrative* Problem Noted [...] 07/18/2019 Overview: 05/21/19 Hgb 11.7 Eleanor Bryant APRN.FINANCE ASSISTANT 04/12/19 Hgb 10.2 Fe sulfate 325 mg daily on Mondays, Wednesdays and Fridays. Repeat CBC in one month. Eleanor Bryant APRN.FINANCE ASSISTANT Abnormal glucose in , antepartum 04/10/2019 07/18/2019 Overview: 04/09/19 1 hr GCT 149. 3 hr GTT ordered. 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 TKRN Supervision of other normal 11/13/2018 12/04/2018 Overview: 11/13/18 - need to discuss CF screening - Bertram Quintana MD Female infertility 08/01/2018 9 Overview: Added automatically from request for surgery [id number] Encounter for supervision of normal first in [...] of this encounter (statuses as of 07/10/2023) [facility]16[facility] Miscellaneous Notes* Quick Notes - Kelli Arnett MD - 04/12/2022 8:53 AM EDT RR- Doing well. No VB/LOF. Good FM. NO ctxs. Mild edema. Plans repeat c/s. F/u in 4 weeks or prn. 28 week lab slip given, will do at [facility]. Kelli Arnett MD [facility] Instructions* Patient Instructions* Charis Echavarria Vt - 04/12/2022 8:33 AM EDT SEQUENTIAL SCREENINGS [facility] offers sequential screenings for women who are [...] testing. It will require an appointment withour water and fire technician. This is not an ultrasound performed [...] the above symptoms, contact our office at [phone] and ask to speak with anurse. After hours, you can call doctors registry at [phone] OR call [facility] at [phone] ask to have the doctor investigation lieutenant paged. If you consider this an emergency, dial 9--1 or go to your nearest emergency department. NEED HELP? Are you dealing with a violent or abusive relationship? Are you a victim of rape or sexual assult? Call [facility] ([place]) 24 hour Crisis Hotline: 871.248.7897 or 704-254-6294. MANUAL Your Guide to a Healthy manual is now on-line. Visit [email or web address] to download your free copy [facility] History of Present illness Narrative* Dori Fitzgerald MD - 03/11/2022 5:20 PM EDT Patient here for routine anatomy scan. See ultrasound report for details. Dori Fitzgerald MD [facility] Miscellaneous Notes* Quick Notes - Angie Padilla [...] needed. Angie Padilla APRN.CNM documented in [facility] Instructions* Patient Instructions* Cande Downey MA - 03/11/2022 2:00 PM EDT SEQUENTIAL SCREENINGS The [facility] offers sequential screenings for women who are [...] testing. It will require an appointment withour water and fire technician. This is not an ultrasound performed [...] the above symptoms, contact our office at [phone] and ask to speak with anurse. After hours, you can call doctors registry at [phone] OR call [facility] at [phone] ask to have the doctor investigation lieutenant paged. If you consider this an emergency, dial 3-5-5 or go to your nearest emergency department. NEED HELP? Are you dealing with a violent or abusive relationship? Are you a victim of rape or sexual assult? Call [facility] ([place]) 24 hour Crisis Hotline: 657.190.6723 or 386-745-4095. MANUAL Your Guide to a Healthy manual is now on-line. Visit [email or web address] to download your free copy [facility] Miscellaneous Notes* Telephone Encounter - Cande Bond [facility] - 03/02/2022 2:39 PM EDT Ms. Santiago [...] Asked her to call me back at [phone]. Plan on discussing her abnormal quad screen in relation to her normal NIPT. Cande Bond CGC documented [facility] Miscellaneous Notes* Quick Notes - Angie Padilla [...] complaints. Will have AFP lab drawn at [facility]. Size equal to dates. PTL/ Bleeding precautions reviewed. RTC in 4 weeks foranatomy US and INA. Angie Padilla APRN.CNM documented in [facility] encounterB[facility]06[facility]22 Instructions* Patient Instructions* Dori Celeste MA - 02/17/2022 4:31 PM EDT SEQUENTIAL SCREENINGS The [facility] offers sequential screenings for women who are [...] testing. It will require an appointment withour water and fire technician. This is not an ultrasound performed [...] the above symptoms, contact our office at [phone] and ask to speak with anurse. After hours, you can call doctors registry at [phone] OR call [facility] at [phone] ask to have the doctor investigation lieutenant paged. If you consider this an emergency, dial 9-0-0 or go to your nearest emergency department. NEED HELP? Are you dealing with a violent or abusive relationship? Are you a victim of rape or sexual assult? Call [facility] ([place]) 24 hour Crisis Hotline: 204.208.7437 or 682-825-8965. MANUAL Your Guide to a Healthy manual is now on-line. Visit [email or web address] to download your free copy [facility] Miscellaneous Notes* Telephone Encounter - Klarissa Flower [...] Provider. Klarissa Flower RN documented in this encounterB[facility]05-[facility]22 Miscellaneous Notes* Quick Notes - Bertram Quintana MD - 01/18/2022 4:23 PM EDT KJ - No VB/LOF/ctxs. Denies concerns. A&P: NT with NIPT today Anatomy US ordered MOD - repeat Bertram Quintana MD documented in this encounterBelle[facility]05-24-2022 Instructions* Patient Instructions* Christine Higgins Ma - 01/18/2022 3:56 PM EDT SEQUENTIAL SCREENINGS [facility] offers sequential screenings for women who are [...] testing. It will require an appointment withour water and fire technician. This is not an ultrasound performed [...] the above symptoms, contact our office at [phone] and ask to speak with anurse. After hours, you can call doctors registry at [phone] OR call [facility] at [phone] ask to have the doctor investigation lieutenant paged. If you consider this an emergency, dial 91- or go to your nearest emergency department. NEED HELP? Are you dealing with a violent or abusive relationship? Are you a victim of rape or sexual assult? Call [facility] ([place]) 24 hour Crisis Hotline: 302.936.8025 or 766-370-6268. MANUAL Your Guide to a Healthy manual is now on-line. 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 Bertram Quintana MD documented in this encounterBelle[facility]04-26-[facility]22 Instructions* Patient Instructions* Christine Higgins Ma - 12/21/2021 9:54 AM EDT Please select the following link to access the [facility] Your Guide to a Healthy . [email or web address] documented in this encounterBellevue Hospital04-14-2022 Miscellaneous Notes* Quick Notes - Melina Macdonald [...] I have given patient contact information to Applico to check on insurance coverage. Patient has a history of gestational diabetes with her last . Last hemoglobin A1c was done June 2021. Patient will plan on early scree rosalinda. Patient has a history of 2 C-sections. She desires a repeat . Patient has a history of macrosomia in prior . Patient declines tubal ligation.Melina Macdonald RN documented in this encounterB[facility]04-14-[facility]22 History of Present illness Narrative* Melina Macdonald [...] Living: None, Comments: None documented in this encounterBelle[facility] Hospital04-04-2022 Miscellaneous Notes* Telephone Encounter - Comfort Claros [...] history. Danya Rueda RN documented in this encounterBelle[facility]10-[facility]21 History of Past illness Narrative* Problem Noted Date Resolved Date History of gestational diabetes 06/22/2021 12/21/2021 Polyhydramnios in third trimester 04/24/2019 07/18/2019 Diet controlled gestational diabetes mellitus (GDM) in third trimester 04/16/2019 07/18/2019 Antepartum anemia 04/10/2019 07/18/2019 Overview: 05/21/19 Hgb 11.7 Eleanor Bryant APRN.FINANCE ASSISTANT 04/12/19 Hgb 10.2 Fe sulfate 325 mg daily on Mondays, Wednesdays and Fridays. Repeat CBC in one month. Eleanor Bryant APRN.FINANCE ASSISTANT Abnormal glucose in , antepartum 201807/18/2019 Overview: 04/09/19 1 hr GCT 149. 3 hr GTT ordered. 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 [...] Overview: Added automatically from request for surgery [id number] Encounter for supervision of normal first in [...] of this encounter (statuses as of 12/21/2021) [facility] History of Past illness Narrative* Problem Noted Date Resolved Date History of gestational diabetes 06/22/2021 12/21/2021 Polyhydramnios in third trimester 04/24/2019 07/18/2019 Diet controlled gestational diabetes mellitus (GDM) in third trimester 04/16/2019 07/18/2019 Antepartum anemia 04/10/2019 07/18/2019 Overview: 05/21/19 Hgb 11.7 Eleanor Bryant APRN.FINANCE ASSISTANT 04/12/19 Hgb 10.2 Fe sulfate 325 mg daily on Mondays, Wednesdays and Fridays. Repeat CBC in one month. Eleanor Bryant APRN.FINANCE ASSISTANT Abnormal glucose in , antepartum 201807/18/2019 Overview: 04/09/19 1 hr GCT 149. 3 hr GTT ordered. 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 [...] Overview: Added automatically from request for surgery [id number] Encounter for supervision of normal first in [...] of this encounter (statuses as of 12/23/2021) [facility] History of Past illness Narrative* Problem Noted Date Resolved Date History of gestational diabetes 06/22/2021 12/21/2021 Polyhydramnios in third trimester 04/24/2019 07/18/2019 Diet controlled gestational diabetes mellitus (GDM) in third trimester 04/16/2019 07/18/2019 Antepartum anemia 04/10/2019 07/18/2019 Overview: 05/21/19 Hgb 11.7 Eleanor Bryant APRN.FINANCE ASSISTANT 04/12/19 Hgb 10.2 Fe sulfate 325 mg daily on Mondays, Wednesdays and Fridays. Repeat CBC in one month. Eleanor Bryant APRN.FINANCE ASSISTANT Abnormal glucose in , antepartum 201807/18/2019 Overview: 04/09/19 1 hr GCT 149. 3 hr GTT ordered. 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 [...] Overview: Added automatically from request for surgery [id number] Encounter for supervision of normal first in [...] of this encounter (statuses as of 01/18/2022) [facility] History of Past illness Narrative* Problem Noted Date Resolved Date History of gestational diabetes 06/22/2021 12/21/2021 Polyhydramnios in third trimester 04/24/2019 07/18/2019 Diet controlled gestational diabetes mellitus (GDM) in third trimester 04/16/2019 07/18/2019 Antepartum anemia 04/10/2019 07/18/2019 Overview: 05/21/19 Hgb 11.7 Eleanor Bryant APRN.FINANCE ASSISTANT 04/12/19 Hgb 10.2 Fe sulfate 325 mg daily on Mondays, Wednesdays and Fridays. Repeat CBC in one month. Eleanor Bryant APRN.FINANCE ASSISTANT Abnormal glucose in , antepartum 201807/18/2019 Overview: 04/09/19 1 hr GCT 149. 3 hr GTT ordered. 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 [...] Overview: Added automatically from request for surgery [id number] Encounter for supervision of normal first in [...] of this encounter (statuses as of 01/18/2022) [facility] History of Past illness Narrative* Problem Noted Date Resolved Date History of gestational diabetes 06/22/2021 12/21/2021 Polyhydramnios in third trimester 04/24/2019 07/18/2019 Diet controlled gestational diabetes mellitus (GDM) in third trimester 04/16/2019 07/18/2019 Antepartum anemia 04/10/2019 07/18/2019 Overview: 05/21/19 Hgb 11.7 Eleanor Bryant APRN.FINANCE ASSISTANT 04/12/19 Hgb 10.2 Fe sulfate 325 mg daily on Mondays, Wednesdays and Fridays. Repeat CBC in one month. Eleanor Bryant APRN.FINANCE ASSISTANT Abnormal glucose in , antepartum 201807/18/2019 Overview: 04/09/19 1 hr GCT 149. 3 hr GTT ordered. 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 [...] Overview: Added automatically from request for surgery [id number] Encounter for supervision of normal first in [...] of this encounter (statuses as of 01/25/2022) [facility] of Past illness Narrative* Problem Noted Date Resolved Date History of gestational diabetes 06/22/2021 12/21/2021 Polyhydramnios in third trimester 04/24/2019 07/18/2019 Diet controlled gestational diabetes mellitus (GDM) in third trimester 04/16/2019 07/18/2019 Antepartum anemia 04/10/2019 07/18/2019 Overview: 05/21/19 Hgb 11.7 Eleanor Bryant APRN.FINANCE ASSISTANT 04/12/19 Hgb 10.2 Fe sulfate 325 mg [...] 3 weeks for growth and MARIELLA. Argenis Dyre APRN.CNM 11/13/18 - twin by IVF - Bertram Quintana MD Supervision of other normal 11/13/2018 12/04/2018 Overview: 11/13/18 - need to discuss CF screening - Bertram Quintana MD Female infertility 08/01/2018 11/13/2018 Overview: Added automatically from request for surgery [id number] Encounter for supervision of normal first in [...] of this encounter (statuses as of 02/18/2022) [facility] of Past illness Narrative* Problem Noted [...] 149. 3 hr GTT ordered. 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 [...] Overview: Added automatically from request for surgery [id number] Encounter for supervision of normal first in [...] of this encounter (statuses as of 03/02/2022) [facility] of Past illness Narrative* Problem Noted Date Resolved Date History of gestational diabetes 06/22/2021 12/21/2021 Polyhydramnios in third trimester 04/24/2019 07/18/2019 Diet controlled gestational diabetes mellitus (GDM) in third trimester 04/16/2019 07/18/2019 Antepartum anemia 04/10/2019 07/18/2019 Overview: 05/21/19 Hgb 11.7 Eleanor Bryant APRN.FINANCE ASSISTANT 04/12/19 Hgb 10.2 Fe sulfate 325 mg [...] Overview: Added automatically from request for surgery [id number] Encounter for supervision of normal first in [...] of this encounter (statuses as of 03/11/2022) [facility] of Past illness Narrative* Problem Noted [...] Repeat CBC in one month. Eleanor Bryant APRN.FINANCE ASSISTANT Abnormal glucose in , antepartum 201807/18/2019 Overview: 04/09/19 1 hr GCT 149. 3 hr GTT ordered. 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 [...] Overview: Added automatically from request for surgery [id number] Encounter for supervision of normal first in [...] of this encounter (statuses as of 03/11/2022) [facility] of Past illness Narrative* Problem Noted Date Resolved Date History of gestational diabetes 06/22/2021 12/21/2021 Polyhydramnios in third trimester 04/24/2019 07/18/2019 Diet controlled gestational diabetes mellitus (GDM) in third trimester 04/16/2019 07/18/2019 Antepartum anemia 04/10/2019 07/18/2019 Overview: 05/21/19 Hgb 11.7 Eleanor Bryant APRN.FINANCE ASSISTANT 04/12/19 Hgb 10.2 Fe sulfate 325 mg daily on Mondays, Wednesdays and Fridays. Repeat CBC in one month. Eleanor Bryant APRN.FINANCE ASSISTANT Abnormal glucose in , antepartum 201807/18/2019 Overview: 04/09/19 1 hr GCT 149. 3 hr GTT ordered. 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 Baby A [...] Overview: Added automatically from request for surgery [id number] Encounter for supervision of normal first in [...] of this encounter (statuses as of 05/09/2022) [facility] of [facility] illness Narrative* Problem Noted Date Resolved Date History of gestational diabetes 06/22/2021 12/21/2021 Polyhydramnios in third trimester 04/24/2019 07/18/2019 Diet controlled gestational diabetes mellitus (GDM) in third trimester 04/16/2019 07/18/2019 Antepartum anemia 04/10/2019 07/18/2019 Overview: 05/21/19 Hgb 11.7 Eleanor Bryant APRN.FINANCE ASSISTANT 04/12/19 Hgb 10.2 Fe sulfate 325 mg daily on Mondays, Wednesdays and Fridays. Repeat CBC in one month. Eleanor Bryant APRN.ANGELINA Abnormal glucose in , antepartum 201807/18/2019 Overview: 04/09/19 1 hr GCT 149. 3 hr GTT ordered. 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 [...] Overview: Added automatically from request for surgery [id number] Encounter for supervision of normal first in [...] of this encounter (statuses as of 05/12/2022) [facility] History of Past illness Narrative* Problem Noted Date Resolved Date History of gestational diabetes 06/22/2021 12/21/2021 Polyhydramnios in third trimester 04/24/2019 07/18/2019 Diet controlled gestational diabetes mellitus (GDM) in third trimester 04/16/2019 07/18/2019 Antepartum anemia 04/10/2019 07/18/2019 Overview: 05/21/19 Hgb 11.7 Eleanor Bryant APRN.FINANCE ASSISTANT 04/12/19 Hgb 10.2 Fe sulfate 325 mg daily on Mondays, Wednesdays and Fridays. Repeat CBC in one month. Eleanor Bryant APRN.FINANCE ASSISTANT Abnormal glucose in , antepartum 201807/18/2019 Overview: 04/09/19 1 hr GCT 149. 3 hr GTT ordered. 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 [...] Overview: Added automatically from request for surgery [id number] Encounter for supervision of normal first in [...] of this encounter (statuses as of 05/26/2022) [facility] History of Past illness Narrative* Problem Noted Date Resolved Date History of gestational diabetes 06/22/2021 12/21/2021 Polyhydramnios in third trimester 04/24/2019 07/18/2019 Diet controlled gestational diabetes mellitus (GDM) in third trimester 04/16/2019 07/18/2019 Antepartum anemia 04/10/2019 07/18/2019 Overview: 05/21/19 Hgb 11.7 Eleanor Bryant APRN.FINANCE ASSISTANT 04/12/19 Hgb 10.2 Fe sulfate 325 mg daily on Mondays, Wednesdays and Fridays. Repeat CBC in one month. Eleanor Bryant APRN.FINANCE ASSISTANT Abnormal glucose in , antepartum 201807/18/2019 Overview: 04/09/19 1 hr GCT 149. 3 hr GTT ordered. 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 [...] Overview: Added automatically from request for surgery [id number] Encounter for supervision of normal first in [...] of this encounter (statuses as of 06/02/2022) [facility] History of Past illness Narrative* Problem Noted Date Resolved Date History of gestational diabetes 06/22/2021 12/21/2021 Polyhydramnios in third trimester 04/24/2019 07/18/2019 Diet controlled gestational diabetes mellitus (GDM) in third trimester 04/16/2019 07/18/2019 Antepartum anemia 04/10/2019 07/18/2019 Overview: 05/21/19 Hgb 11.7 Eleanor Bryant APRN.FINANCE ASSISTANT 04/12/19 Hgb 10.2 Fe sulfate 325 mg daily on Mondays, Wednesdays and Fridays. Repeat CBC in one month. Eleanor Bryant APRN.FINANCE ASSISTANT Abnormal glucose in , antepartum 201807/18/2019 Overview: 04/09/19 1 hr GCT 149. 3 hr GTT ordered. 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 [...] Overview: Added automatically from request for surgery [id number] Encounter for supervision of normal first in [...] of this encounter (statuses as of 06/02/2022) [facility] History of Past illness Narrative* Problem Noted Date Resolved Date History of gestational diabetes 06/22/2021 12/21/2021 Polyhydramnios in third trimester 04/24/2019 07/18/2019 Diet controlled gestational diabetes mellitus (GDM) in third trimester 04/16/2019 07/18/2019 Antepartum anemia 04/10/2019 07/18/2019 Overview: 05/21/19 Hgb 11.7 Eleanor Bryant APRN.FINANCE ASSISTANT 04/12/19 Hgb 10.2 Fe sulfate 325 mg daily on Mondays, Wednesdays and Fridays. Repeat CBC in one month. Eleanor Bryant APRN.FINANCE ASSISTANT Abnormal glucose in , antepartum 201807/18/2019 Overview: 04/09/19 1 hr GCT 149. 3 hr GTT ordered. 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 [...] Overview: Added automatically from request for surgery [id number] Encounter for supervision of normal first in [...] of this encounter (statuses as of 06/10/2022) [facility] History of Past illness Narrative* Problem Noted Date Resolved Date History of gestational diabetes 06/22/2021 12/21/2021 Polyhydramnios in third trimester 04/24/2019 07/18/2019 Diet controlled gestational diabetes mellitus (GDM) in third trimester 04/16/2019 07/18/2019 Antepartum anemia 04/10/2019 07/18/2019 Overview: 05/21/19 Hgb 11.7 Eleanor Bryant APRN.FINANCE ASSISTANT 04/12/19 Hgb 10.2 Fe sulfate 325 mg daily on Mondays, Wednesdays and Fridays. Repeat CBC in one month. Eleanor Bryant APRN.FINANCE ASSISTANT Abnormal glucose in , antepartum 201807/18/2019 Overview: 04/09/19 1 hr GCT 149. 3 hr GTT ordered. 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 [...] Overview: Added automatically from request for surgery [id number] Encounter for supervision of normal first in [...] of this encounter (statuses as of 06/10/2022) [facility] History of Past illness Narrative* Problem Noted Date Resolved Date History of gestational diabetes 06/22/2021 12/21/2021 Polyhydramnios in third trimester 04/24/2019 07/18/2019 Diet controlled gestational diabetes mellitus (GDM) in third trimester 04/16/2019 07/18/2019 Antepartum anemia 04/10/2019 07/18/2019 Overview: 05/21/19 Hgb 11.7 Eleanor Bryant APRN.FINANCE ASSISTANT 04/12/19 Hgb 10.2 Fe sulfate 325 mg daily on Mondays, Wednesdays and Fridays. Repeat CBC in one month. Eleanor Bryant APRN.FINANCE ASSISTANT Abnormal glucose in , antepartum 201807/18/2019 Overview: 04/09/19 1 hr GCT 149. 3 hr GTT ordered. 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 [...] Overview: Added automatically from request for surgery [id number] Encounter for supervision of normal first in [...] of this encounter (statuses as of 06/13/2022) [facility] History of Past illness Narrative* Problem Noted Date Resolved Date History of gestational diabetes 06/22/2021 12/21/2021 Polyhydramnios in third trimester 04/24/2019 07/18/2019 Diet controlled gestational diabetes mellitus (GDM) in third trimester 04/16/2019 07/18/2019 Antepartum anemia 04/10/2019 07/18/2019 Overview: 05/21/19 Hgb 11.7 Eleanor Bryant APRN.FINANCE ASSISTANT 04/12/19 Hgb 10.2 Fe sulfate 325 mg [...] Overview: Added automatically from request for surgery [id number] Encounter for supervision of normal first in [...] of this encounter (statuses as of 06/13/2022) [facility] History of Past illness Narrative* Problem Noted Date Resolved Date History of gestational diabetes 06/22/2021 12/21/2021 Polyhydramnios in third trimester 04/24/2019 07/18/2019 Diet controlled gestational diabetes mellitus (GDM) in third trimester 04/16/2019 07/18/2019 Antepartum anemia 04/10/2019 07/18/2019 Overview: 05/21/19 Hgb 11.7 Eleanor Bryant APRN.FINANCE ASSISTANT 04/12/19 Hgb 10.2 Fe sulfate 325 mg daily on Mondays, Wednesdays and Fridays. Repeat CBC in one month. Eleanor Bryant APRN.FINANCE ASSISTANT Abnormal glucose in , antepartum 201807/18/2019 Overview: 04/09/19 1 hr GCT 149. 3 hr GTT ordered. 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 3 hr GTT ordered. 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 [...] Overview: Added automatically from request for surgery [id number] Encounter for supervision of normal first in [...] of this encounter (statuses as of 07/06/2022) [facility] History of Past illness Narrative* Problem Noted Date Resolved Date History of gestational diabetes 06/22/2021 12/21/2021 Polyhydramnios in third trimester 04/24/2019 07/18/2019 Diet controlled gestational diabetes mellitus (GDM) in third trimester 04/16/2019 07/18/2019 Antepartum anemia 04/10/2019 07/18/2019 Overview: 05/21/19 Hgb 11.7 Eleanor Bryant APRN.FINANCE ASSISTANT 04/12/19 Hgb 10.2 Fe sulfate 325 mg daily on Mondays, Wednesdays and Fridays. Repeat CBC in one month. Eleanor Bryant APRN.FINANCE ASSISTANT Abnormal glucose in , antepartum 201807/18/2019 Overview: 04/09/19 1 hr GCT 149. 3 hr GTT ordered. 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 [...] Overview: Added automatically from request for surgery [id number] Encounter for supervision of normal first in [...] of this encounter (statuses as of 07/06/2022) [facility] History of Past illness Narrative* Problem Noted Date Resolved Date History of gestational diabetes 06/22/2021 12/21/2021 Polyhydramnios in third trimester 04/24/2019 07/18/2019 Diet controlled gestational diabetes mellitus (GDM) in third trimester 04/16/2019 07/18/2019 Antepartum anemia 04/10/2019 07/18/2019 Overview: 05/21/19 Hgb 11.7 Eleanor Bryant APRN.FINANCE ASSISTANT 04/12/19 Hgb 10.2 Fe sulfate 325 mg daily on Mondays, Wednesdays and Fridays. Repeat CBC in one month. Eleanor Bryant APRN.FINANCE ASSISTANT Abnormal glucose in , antepartum 201807/18/2019 Overview: 04/09/19 1 hr GCT 149. 3 hr GTT ordered. 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 [...] Overview: Added automatically from request for surgery [id number] Encounter for supervision of normal first in [...] of this encounter (statuses as of 07/11/2022) [facility] History of Past illness Narrative* Problem Noted Date Resolved Date History of gestational diabetes 06/22/2021 12/21/2021 Polyhydramnios in third trimester 04/24/2019 07/18/2019 Diet controlled gestational diabetes mellitus (GDM) in third trimester 04/16/2019 07/18/2019 Antepartum anemia 04/10/2019 07/18/2019 Overview: 05/21/19 Hgb 11.7 Eleanor Bryant APRN.FINANCE ASSISTANT 04/12/19 Hgb 10.2 Fe sulfate 325 mg daily on Mondays, Wednesdays and Fridays. Repeat CBC in one month. Eleanor Bryant APRN.ANGELINA Abnormal glucose in , antepartum 201807/18/2019 Overview: 04/09/19 1 hr GCT 149. 3 hr GTT ordered. 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 management of mother 03/29/2019 07/18/2019 Overview: 03/29/19 - baby A, repeat US scheduled - Bertram Quintana MD Previous section 11/13/20182018 Overview: 11/13/18 - plans for repeat section - eBrtram Quintana MD Dichorionic diamniotic twin , antepartu [...] Overview: Added automatically from request for surgery [id number] Encounter for supervision of normal first in [...] of this encounter (statuses as of 07/15/2022) [facility] History of Past illness Narrative* Problem Noted [...] Overview: Added automatically from request for surgery [id number] Encounter for supervision of normal first in [...] of this encounter (statuses as of 07/22/2022) [facility] History of Past illness Narrative* Problem Noted Date Resolved Date History of gestational diabetes 06/22/2021 12/21/2021 Polyhydramnios in third trimester 04/24/2019 07/18/2019 Diet controlled gestational diabetes mellitus (GDM) in third trimester 04/16/2019 07/18/2019 Antepartum anemia 04/10/2019 07/18/2019 Overview: 05/21/19 Hgb 11.7 Eleanor Bryant APRN.FINANCE ASSISTANT 04/12/19 Hgb 10.2 Fe sulfate 325 mg daily on Mondays, Wednesdays and Fridays. Repeat CBC in one month. Eleanor Bryant APRN.FINANCE ASSISTANT Abnormal glucose in , antepartum 201807/18/2019 Overview: 04/09/19 1 hr GCT 149. 3 hr GTT ordered. 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 [...] Overview: Added automatically from request for surgery [id number] Encounter for supervision of normal first in [...] of this encounter (statuses as of 07/26/2022) [facility] History of Past illness Narrative* Problem Noted Date Resolved Date History of gestational diabetes 06/22/2021 12/21/2021 Polyhydramnios in third trimester 04/24/2019 07/18/2019 Diet controlled gestational diabetes mellitus (GDM) in third trimester 04/16/2019 07/18/2019 Antepartum anemia 04/10/2019 07/18/2019 Overview: 05/21/19 Hgb 11.7 Eleanor Bryant APRN.FINANCE ASSISTANT 04/12/19 Hgb 10.2 Fe sulfate 325 mg daily on Mondays, Wednesdays and Fridays. Repeat CBC in one month. Eleanor Bryant APRN.FINANCE ASSISTANT Abnormal glucose in , antepartum 201807/18/2019 Overview: 04/09/19 1 hr GCT 149. 3 hr GTT ordered. 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 [...] Overview: Added automatically from request for surgery [id number] Encounter for supervision of normal first in [...] of this encounter (statuses as of 07/28/2022) [facility] History of Past illness Narrative* Problem Noted Date Resolved Date History of gestational diabetes 06/22/2021 12/21/2021 Polyhydramnios in third trimester 04/24/2019 07/18/2019 Diet controlled gestational diabetes mellitus (GDM) in third trimester 04/16/2019 07/18/2019 Antepartum anemia 04/10/2019 07/18/2019 Overview: 05/21/19 Hgb 11.7 Eleanor Bryant APRN.FINANCE ASSISTANT 04/12/19 Hgb 10.2 Fe sulfate 325 mg daily on Mondays, Wednesdays and Fridays. Repeat CBC in one month. Eleanor Bryant APRN.FINANCE ASSISTANT Abnormal glucose in , antepartum 201807/18/2019 Overview: 04/09/19 1 hr GCT 149. 3 hr GTT ordered. 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 Repeat CBC in one month. Eleanor Bryant APRN.FINANCE ASSISTANT Abnormal glucose in , antepartum 201807/18/2019 Overview: 04/09/19 1 hr GCT 149. 3 hr GTT ordered. 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 Repeat CBC in one month. Eleanor Bryant APRN.FINANCE ASSISTANT Abnormal glucose in , antepartum 201807/18/2019 Overview: 04/09/19 1 hr GCT 149. 3 hr GTT ordered. 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 [...] Overview: Added automatically from request for surgery [id number] Encounter for supervision of normal first in [...] of this encounter (statuses as of 12/09/2021) [facility] Diagnosis Early stage of - Primary state, incidental [facility] Diagnosis Antepartum multigravida of advanced maternal age- Primary with history of infertility, antepartum History of gestational diabetes in prior , currently with other poor obstetric history with history of section, antepartum History of macrosomia in infant in prior , currently with other poor obstetric history [facility] Diagnosis Antepartum multigravida of advanced maternal age- Primary History of delivery, currently Previous delivery, unspecified as to episode of care or not applicable [facility] Diagnosis AMA (advanced maternal age) multigravida 35+, first trimester- Primary Encounter for screening for nuchal translucency [facility] Diagnosis Antepartum multigravida of advanced maternal age- Primary 12 weeks gestation of state, incidental [facility] Diagnosis 16 weeks gestation of - Primary state, incidental Antepartum multigravida of advanced maternal age History of delivery, currently Previous delivery, unspecified as to episode of care or not applicable [facility] Diagnosis 19 weeks gestation of - Primary state, incidental [facility] Diagnosis Encounter for routine screening for malformation using ultrasonics- Primary 19 weeks gestation of state, incidental Elderly multigravida with antepartum condition or complication 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 documented in this encounter [facility] note* Diagnosis 24 weeks gestation of - Primary state, incidental [facility]* Diagnosis Abnormal maternal glucose tolerance, antepartum- Primary Gestational diabetes mellitus, class A1 Abnormal maternal glucose tolerance, complicating , childbirth, or the puerperium, unspecified as to episode of care Antepartum anemia Anemia, antepartum [facility] Diagnosis 28 weeks gestation of - Primary state, incidental Gestational diabetes mellitus, class A1 Abnormal maternal glucose tolerance, complicating , childbirth, or the puerperium, unspecified as to episode of care Need for vaccination Need for prophylactic vaccination and inoculation against unspecified single disease [facility] Diagnosis 30 weeks gestation of - Primary state, incidental Antepartum multigravida of advanced maternal age Gestational diabetes mellitus, class A1 Abnormal maternal glucose tolerance, complicating , childbirth, or the puerperium, unspecified as to episode of care GDM, class A2 Abnormal maternal glucose tolerance, complicating , childbirth, or the puerperium, unspecified as to episode of care documented in this encounter [facility] note* Diagnosis 30 weeks gestation of state, incidental GDM, class A2 Abnormal maternal glucose tolerance, complicating , childbirth, or the puerperium, unspecified as to episode of care [facility] Diagnosis Gestational diabetes mellitus, class A1- Primary Abnormal maternal glucose tolerance, complicating , childbirth, or the puerperium, unspecified as to episode of care Antepartum multigravida of advanced maternal age 32 weeks gestation of state, incidental [facility] Diagnosis 32 weeks gestation of - Primary state, incidental [facility]* Diagnosis GDM, class A2- Primary Abnormal maternal glucose tolerance, complicating , childbirth, or the puerperium, unspecified as to episode of care Antepartum multigravida of advanced maternal age [facility] Diagnosis 34 weeks gestation of - Primary state, incidental Antepartum multigravida of advanced maternal age GDM, class A2 Abnormal maternal glucose tolerance, complicating , childbirth, or the puerperium, unspecified as to episode of care [facility] Diagnosis 36 weeks gestation of - Primary state, incidental AMA (advanced maternal age) multigravida 35+, third trimester Diet controlled gestational diabetes mellitus (GDM) in third trimester [facility]* Diagnosis GDM, class A2- Primary Abnormal maternal glucose tolerance, complicating , childbirth, or the puerperium, unspecified as to episode of care Antepartum multigravida of advanced maternal age 36 weeks gestation of state, incidental [facility]* Diagnosis Antepartum multigravida of advanced maternal age- Primary 37 weeks gestation of state, incidental 30 weeks gestation of state, incidental GDM, class A2 Abnormal maternal glucose tolerance, complicating , childbirth, or the puerperium, unspecified as to episode of care [facility] Diagnosis Antepartum multigravida of advanced maternal age- Primary 38 weeks gestation of state, incidental [facility] Diagnosis Encounter for screening mamm[facility] for [facility] cancer [facility] Diagnosis care and examination- Primary Routine follow-up Cervical cancer screening Screening for malignant neoplasm of the cervix documented in this encounter [facility] note* Diagnosis Encounter for screening mammogram for breast cancer documented in this encounter [facility] for referral (narrative)* Diagnostic Procedure Only (Routine) - Authorized Specialty Diagnoses / Procedures Referred By Contac t Referred To Contact [facility] Diagnoses Antepartum multigravida of advanced maternal age Procedures OBSTETRIC ULTRASOUND WHI US PREG UTERUS AFTER 1ST TRIMEST GESTATION Bertram Quintana MD [address] [place] [address] [id number] [place] [address] Referral ID Status Reason Start Date Expiration Date Visits Requested Visits Authorized [id number] Authorized Auto-Generat ed Referral 01/18/2022 01/18/2023 1 1 [facility] for referral (narrative)* Outpatient Procedure (Routine) - Pending Review Specialty Diagnoses / Procedures Referred By Contac t Referred To Contact [facility] Diagnoses Antepartum multigravida of advanced maternal age 30 weeks gestation of Procedures NON-STRESS TEST NON-STRESS TEST Bere Mccauley MD [address] [place] [address] [facility] [address] [place] [address] Referral ID Status Reason Start Date Expiration Date Visits Requested Visits Authorized [id number] Pending Review Auto-Generat ed Referral 05/25/2022 05/25/2023 6 1 * Diagnostic Procedure Only (Routine) - Pending Review Specialty Diagnoses / Procedures Referred By Contac t Referred To Contact [facility] Diagnoses Antepartum multigravida of advanced maternal age 30 weeks gestation of GDM, class A2 Procedures OBSTETRIC ULTRASOUND WHI US PREG UTERUS AFTER 1ST TRIMEST GESTATION Bere Mccauley MD [address] [place] [address] [facility] [address] [place] [address] Referral ID Status Reason Start Date Expiration Date Visits Requested Visits Authorized [id number] Pending Review Auto-Generat ed Referral 05/25/2022 05/25/2023 1 1 [facility] for referral (narrative)* Diagnostic Procedure Only (Routine) - Pending Review Specialty Diagnoses / Procedures Referred By Contac t Referred To Contact [facility] Diagnoses GDM, class A2 Antepartum multigravida of advanced maternal age Procedures OBSTETRIC ULTRASOUND WHI US PREG UTERUS AFTER 1ST TRIMEST GESTATION Angie Padilla APRN.CNM [address] [address] [place] [address] [address] Referral ID Status Reason Start Date Expiration Date Visits Requested Visits Authorized [id number] Pending Review Auto-Generat ed Referral 2 06/13/2023 1 1 [facility] for referral (narrative)* Outpatient Procedure (Routine) - Pending Review Specialty Diagnoses / Procedures Referred By Contac t Referred To Contact [facility] Diagnoses 34 weeks gestation of Antepartum multigravida of advanced maternal age GDM, class A2 Procedures NON-STRESS TEST NON-STRESS TEST Angie Padilla APRN.CNM [address] [place] [address] [address] Referral ID Status Reason Start Date Expiration Date Visits Requested Visits Authorized [id number] Pending Review Auto-Generat ed Referral 2 06/23/2023 1 1 [facility] for referral (narrative)* Diagnostic Procedure Only (Routine) - Pending Review Specialty Diagnoses / Procedures Referred By Contac t Referred To Contact [facility] Diagnoses Encounter for screening mammogram for breast cancer Procedures YOSEF SCREENING SCREENING MAMMOGRAPHY BI 2-VIEW BREAST INC CAD Micky Frederick MD [address] [place] [address] [facility] [address] [place] [address] Referral ID Status Reason Start Date Expiration Date Visits Requested Visits Authorized [id number] Pending Review Auto-Generat ed Referral 07/28/2022 08/27/2023 1 1 [facility] for referral (narrative)* Diagnostic Procedure Only (Routine) - Pending Review Specialty Diagnoses / Procedures Referred By Cesar t Referred To Contact [facility] Diagnoses Encounter for screening mammogram for breast cancer Procedures YOSEF SCREENING SCREENING MAMMOGRAPHY BI 2-VIEW BREAST INC CAD Micky Frederick MD [address] [place] [address] [facility] [address] [place] [id number] Referral ID Status Reason Start Date Expiration Date Visits Requested Visits Authorized [id number] Pending Review Auto-Generat ed Referral 07/05/2023 08/03/2024 1 1 [facility] for visit Narrative* Diagnostic Procedure Only (Routine) - Closed Specialty Diagnoses / Procedures Referred By Cesar t Referred To Contact [facility] Diagnoses Antepartum multigravida of advanced maternal age Procedures OBSTETRIC ULTRASOUND WHI US PREG UTERUS AFTER 1ST TRIMEST GESTATION Bertram Quintana MD [address] [place] [address] [facility] [address] [place] [id number] Referral ID Status Reason Start Date Expiration Date V isits Requested Visits Authorized [id number] Closed Auto-Generate d Referral 01/18/2022 01/18/2023 1 1 [facility] Reason for Referral Specialty Diagnoses / Procedures Referred By Cesar t Referred To Contact Diagnoses Antepartum multigravida of advanced maternal age Procedures CONSULT TO MATERNAL MEDI OFFICE/OUTPATIENT [facility] MDM 60-74 MINUTES Bertram Quintana MD [address] [place] [address] Referral ID Status Reason Start Date Expiration Date Visits Requested Visits Authorized [id number] Authorized PCP Requested Referral Auto-Generate d Referral 12/21/2021 12/21/2022 1 1 Specialty Diagnoses / Procedures Referred By Contskip t Referred To Contact [facility] Diagnoses Antepartum multigravida of advanced maternal age Procedures NUCHAL TRANSLUCENCY WHI US NUCHAL TRANSLUCENCY 1ST GESTATION Bertram Quintana MD [address] [place] [address] [facility] [address] [place] [address] Referral ID Status Reason Start Date Expiration Date Visits Requested Visits Authorized [id number] Authorized Auto-Generat ed Referral 12/21/2021 12/21/2022 1 [...] or prosecute any alcohol or drug abuse patient.[facility] the event this information is protected by the Federal Confidentiality of Alcohol and Drug Abuse Patient Records regulations: The Federal rules restrict any use of the information to criminally investigate or prosecute any alcohol or drug abuse patient.[facility] HospitalIn the event this information is protected by the Federal Confidentiality of Alcohol and Drug Abuse Patient Records regulations: The Federal rules restrict any use of the information to criminally investigate or prosecute any alcohol or drug abuse patient.[facility] HospitalIn the event this information is protected by the Federal Confidentiality of Alcohol and Drug Abuse Patient Records regulations: The Federal rules restrict any use of the information to criminally investigate or prosecute any alcohol or drug abuse patient.[facility] HospitalIn the event this information is protected by the Federal Confidentiality of Alcohol and Drug Abuse Patient Records regulations: The Federal rules restrict any use of the information to criminally investigate or prosecute any alcohol or drug abuse patient.[facility] HospitalIn the event this information is protected by the Federal Confidentiality of Alcohol and Drug Abuse Patient Records regulations: The Federal rules restrict any use of the information to criminally investigate or prosecute any alcohol or drug abuse patient.[facility] HospitalIn the event this information is protected by the Federal Confidentiality of Alcohol and Drug Abuse Patient Records regulations: The Federal rules restrict any use of the information to criminally investigate or prosecute any alcohol or drug abuse patient.[facility] HospitalIn the event this information is protected by the Federal Confidentiality of Alcohol and Drug Abuse Patient Records regulations: The Federal rules restrict any use of the information to criminally investigate or prosecute any alcohol or drug abuse patient.[facility] HospitalIn the event this information is protected by the Federal Confidentiality of Alcohol and Drug Abuse Patient Records regulations: The Federal rules restrict any use of the information to criminally investigate or prosecute any alcohol or drug abuse patient.[facility] HospitalIn the event this information is protected by the Federal Confidentiality of Alcohol and Drug Abuse Patient Records regulations: The Federal rules restrict any use of the information to criminally investigate or prosecute any alcohol or drug abuse patient.[facility] HospitalIn the event this information is protected by the Federal Confidentiality of Alcohol and Drug Abuse Patient Records regulations: The Federal rules restrict any use of the information to criminally investigate or prosecute any alcohol or drug abuse patient.[facility] HospitalIn the event this information is protected by the Federal Confidentiality of Alcohol and Drug Abuse Patient Records regulations: The Federal rules restrict any use of the information to criminally investigate or prosecute any alcohol or drug abuse patient.[facility] HospitalIn the event this information is protected by the Federal Confidentiality of Alcohol and Drug Abuse Patient Records regulations: The Federal rules restrict any use of the information to criminally investigate or prosecute any alcohol or drug abuse patient.[facility] HospitalIn the event this information is protected by the Federal Confidentiality of Alcohol and Drug Abuse Patient Records regulations: The Federal rules restrict any use of the information to criminally investigate or prosecute any alcohol or drug abuse patient.[facility] HospitalIn the event this information is protected by the Federal Confidentiality of Alcohol and Drug Abuse Patient Records regulations: The Federal rules restrict any use of the information to criminally investigate or prosecute any alcohol or drug abuse patient.[facility] HospitalIn the event this information is protected by the Federal Confidentiality of Alcohol and Drug Abuse Patient Records regulations: The Federal rules restrict any use of the information to criminally investigate or prosecute any alcohol or drug abuse patient.[facility] HospitalIn the event this information is protected by the Federal Confidentiality of Alcohol and Drug Abuse Patient Records regulations: The Federal rules restrict any use of the information to criminally investigate or prosecute any alcohol or drug abuse patient.[facility] HospitalIn the event this information is protected by the Federal Confidentiality of Alcohol and Drug Abuse Patient Records regulations: The Federal rules restrict any use of the information to criminally investigate or prosecute any alcohol or drug abuse patient.[facility] HospitalIn the event this information is protected by the Federal Confidentiality of Alcohol and Drug Abuse Patient Records regulations: The Federal rules restrict any use of the information to criminally investigate or prosecute any alcohol or drug abuse patient.[facility] HospitalIn the event this information is protected by the Federal Confidentiality of Alcohol and Drug Abuse Patient Records regulations: The Federal rules restrict any use of the information to criminally investigate or prosecute any alcohol or drug abuse patient.[facility] HospitalIn the event this information is protected by the Federal Confidentiality of Alcohol and Drug Abuse Patient Records regulations: The Federal rules restrict any use of the information to criminally investigate or prosecute any alcohol or drug abuse patient.[facility] HospitalIn the event this information is protected by the Federal Confidentiality of Alcohol and Drug Abuse Patient Records regulations: The Federal rules restrict any use of the information to criminally investigate or prosecute any alcohol or drug abuse patient.[facility] HospitalIn the event this information is protected by the Federal Confidentiality of Alcohol and Drug Abuse Patient Records regulations: The Federal rules restrict any use of the information to criminally investigate or prosecute any alcohol or drug abuse patient.[facility] HospitalIn the event this information is protected by the Federal Confidentiality of Alcohol and Drug Abuse Patient Records regulations: The Federal rules restrict any use of the information to criminally investigate or prosecute any alcohol or drug abuse patient.[facility] HospitalIn the event this information is protected by the Federal Confidentiality of Alcohol and Drug Abuse Patient Records regulations: The Federal rules restrict any use of the information to criminally investigate or prosecute any alcohol or drug abuse patient.[facility] HospitalIn the event this information is protected by the Federal Confidentiality of Alcohol and Drug Abuse Patient Records regulations: The Federal rules restrict any use of the information to criminally investigate or prosecute any alcohol or drug abuse patient.[facility] HospitalIn the event this information is protected by the Federal Confidentiality of Alcohol and Drug Abuse Patient Records regulations: The Federal rules restrict any use of the information to criminally investigate or prosecute any alcohol or drug abuse patient.[facility] HospitalIn the event this information is protected by the Federal Confidentiality of Alcohol and Drug Abuse Patient Records regulations: The Federal rules restrict any use of the information to criminally investigate or prosecute any alcohol or drug abuse patient.[facility] HospitalIn the event this information is protected by the Federal Confidentiality of Alcohol and Drug Abuse Patient Records regulations: The Federal rules restrict any use of the information to criminally investigate or prosecute any alcohol or drug abuse patient.[facility] HospitalIn the event this information is protected by the Federal Confidentiality of Alcohol and Drug Abuse Patient Records regulations: The Federal rules restrict any use of the information to criminally investigate or prosecute any alcohol or drug abuse patient.[facility] HospitalIn the event this information is protected by the Federal Confidentiality of Alcohol and Drug Abuse Patient Records regulations: The Federal rules restrict any use of the information to criminally investigate or prosecute any alcohol or drug abuse patient.[facility] HospitalIn the event this information is protected by the Federal Confidentiality of Alcohol and Drug Abuse Patient Records regulations: The Federal rules restrict any use of the information to criminally investigate or prosecute any alcohol or drug abuse patient.[facility] HospitalIn the event this information is protected by the Federal Confidentiality of Alcohol and Drug Abuse Patient Records regulations: The Federal rules restrict any use of the information to criminally investigate or prosecute any alcohol or drug abuse patient.[facility] HospitalIn the event this information is protected by the Federal Confidentiality of Alcohol and Drug Abuse Patient Records regulations: The Federal rules restrict any use of the information to criminally investigate or prosecute any alcohol or drug abuse patient.[facility] HospitalIn the event this information is protected by the Federal Confidentiality of Alcohol and Drug Abuse Patient Records regulations: The Federal rules restrict any use of the information to criminally investigate or prosecute any alcohol or drug abuse patient.[facility] HospitalIn the event this information is protected by the Federal Confidentiality of Alcohol and Drug Abuse Patient Records regulations: The Federal rules restrict any use of the information to criminally investigate or prosecute any alcohol or drug abuse patient.[facility] HospitalIn the event this information is protected by the Federal Confidentiality of Alcohol and Drug Abuse Patient Records regulations: The Federal rules restrict any use of the information to criminally investigate or prosecute any alcohol or drug abuse patient.[facility] Reason for Visit (unrecogniz ed section and content) Specialty Diagnoses / Procedures Referred By Cesar huynh Referred To Contact [facility] Diagnoses OB Procedures OFFICE/OUTPATIENT ESTABLISHED LOW MDM 20-29 MIN EST WHI OB Kelli Arnett MD [address] [place] [address] Carmelita Parikh MD [address] [place] [address] Referral ID Status Reason Start Date Expiration Date Visits Re quested Visits Authorized [id number] Closed 07/15/2022 08/27/2022 2 2 Reason Onset Date Comments Care 07/06/2022 Specialty Diagnoses / Procedures [facility] Diagnoses ob Procedures [facility] OB 1ST EXAM Self Bertram Quintana MD [address] [place] [address] Referral ID Status Reason Start Date Expiration Date V isits Requested Visits Authorized [id number] Authorized 08/28/2021 08/27/2022 99 99 Reason Onset Date Comments Care 06/23/2022 Specialty Diagnoses / Procedures [facility] To Contact [facility] Diagnoses ob Procedures [facility] OB 1ST EXAM Self Bertram Quintana MD [address] [place] [address] Reason Onset Date Comments Care 06/10/2022 Reason Onset Date Comments Care 05/12/2022 Reason Onset Date Comments Care 01/18/2022 Reason Comments +UPT Reason Comments Care Reason Comments Initial OB Visit Reason Comments Outside Labs Results Reason Comments US Specialty Diagnoses / Procedures [facility] Referred To Contact [facility] Diagnoses Antepartum multigravida of advanced maternal age Procedures NUCHAL TRANSLUCENCY WHI US NUCHAL TRANSLUCENCY 1ST GESTATION Bertram Quintana MD [address] [place] [address] [facility] [address] [place] [address] Referral ID Status Reason Start Date Expiration Date V isits Requested Visits Authorized [id number] Closed Auto-Generate d Referral 12/21/2021 12/21/2022 1 1 Reason Comments Maternity 21 results Reason Onset Date Comments Care 02/17/2022 Reason Comments Results Reason Onset Date Comments Care 03/11/2022 Specialty Diagnoses / Procedures [facility] Referred To Contact [facility] Diagnoses Supervision of elderly multigravida, unspecified trimester OB / anatomy ultrasound Procedures US PREG UTERUS AFTER 1ST TRIMEST GESTATION EST I OB eBrtram Quintana MD [address] [place] [address] Angie Padilla APRN.CNM [address] [place] [address] Referral ID Status Reason Start Date Expiration Date Visits Re quested Visits Authorized [id number] Closed 08/28/2021 08/27/2022 1 1 Reason Onset Date Comments Care 04/12/2022 Specialty Diagnoses / Procedures Referred By Contac t Referred To Contact [facility] Diagnoses ob Procedures [facility] OB 1ST EXAM MD Manuel Gomez Karmon, MD [address] [place] [address] Reason Comments Medication Problem Reason Onset Date Comments Care 05/25/2022 Specialty Diagnoses / Procedures Referred By Contac t Referred To Contact Diagnoses Antepartum multigravida of advanced maternal age Procedures CONSULT TO MATERNAL MEDI OFFICE/OUTPATIENT NEW HIGH MDM 60-74 MINUTES Bertram Quintana MD [address] [place] [address] Referral ID Status Reason Start Date Expiration Date V isits Requested Visits Authorized [id number] Closed PCP Requested Referral Auto-Generated Referral 12/21/2021 12/21/2022 1 1 Specialty Diagnoses / Procedures Referred By Contac t Referred To Contact [facility] Diagnoses Antepartum multigravida of advanced maternal age 30 weeks gestation of GDM, class A2 Procedures OBSTETRIC ULTRASOUND WHI US PREG UTERUS AFTER 1ST TRIMEST GESTATION Bere Mccauley MD [address] [facility] [place] [address] [facility] [address] [place] [address] Referral ID Status Reason Start Date Expiration Date V isits Requested Visits Authorized [id number] Open Auto-Generate d Referral 05/25/2022 05/25/2023 1 1 Reason Comments Orders Reason Comments Weekly NST Specialty Diagnoses / Procedures Referred By Contac t Referred To Contact [facility] Diagnoses GDM, class A2 Antepartum multigravida of advanced maternal age Procedures OBSTETRIC ULTRASOUND WHI US PREG UTERUS AFTER 1ST TRIMEST GESTATION Angie Padilla APRN.CNM [address] [place] [address] [facility] [address] [place] [address] Referral ID Status Reason Start Date Expiration Date V isits Requested Visits Authorized [id number] Closed Auto-Generate d Referral 06/13/2022 06/13/2023 1 1 Reason Comments Patient Question Reason Onset Date Comments Care 07/15/2022 Referral ID Status Reason Start Date Expiration Date V isits Requested Visits Authorized [id number] Authorized 07/15/2022 08/27/2022 2 2 Reason Comments Ob Delivery Note Reason Comments FMLA Paperwork Specialty Diagnoses / Procedures Referred By Contac t Referred To Contact [facility] Diagnoses Follow-up exam 6Wk Post Procedures OFFICE/OUTPATIENT ESTABLISHED HIGH MDM 40-54 MIN POST Bertram Quintana MD [address] [place] [address] Bertram Quintana MD [address] [place] [address] Referral ID Status Reason Start Date Expiration Date Visits Re quested Visits Authorized [id number] Closed 08/24/2022 08/27/2023 1 1 Reason Comments Forms/letter Care Teams (unrecognized sec tion and content) Store Detective Relationship Specialty Start Date End Date Micky Frederick MD [address] [place], [place] [id number] [phone] PCP - General Family Practice 06/22/21 Store Detective Relationship Specialty Start Date End Date Micky Frederick MD [address] [place], [place] [id number] [phone] PCP - General Family Practice 06/22/21 Store Detective Relationship Specialty Start Date End Date Micky Frederick MD [address] [place] [address] PCP - General Family Practice 06/22/21 Store Detective Relationship Specialty Start Date End Date Micky Frederick MD [address] [facility] [place] [address] PCP - General Family Practice 06/22/21 Store Detective Relationship Specialty Start Date End Date Micky Frederick MD [address] [place] [address] PCP - General Family Practice 06/22/21 Store Detective Relationship Specialty Start Date End Date Micky Frederick MD [facility] [place] [address] PCP - General Family Practice 06/22/21 Store Detective Relationship Specialty Start Date End Date Micky Frederick MD [address] [place] [address] [place] [address] PCP - General Family Practice 06/22/21 Store Detective Relationship Specialty Start Date End Date Micky Frederick MD [address] [place] [address] PCP - General Family Practice 06/22/21 Store Detective Relationship Specialty Start Date End Date Micky Frederick MD [facility] [place] [address] PCP - General Family Practice 06/22/21 Store Detective Relationship Specialty Start Date End Date Micky Frederick MD [facility] [place] [address] PCP - General Family Medicine 06/22/21 Store Detective Relationship Specialty Start Date End Date Micky Frederick MD [facility] [place] [address] PCP - General Family Medicine 06/22/21 Store Detective Relationship Specialty Start Date End Date Micky Frederick MD [facility] [place] [address] PCP - General Family Medicine 06/22/21 Store Detective Relationship Specialty Start Date End Date Micky Frederick MD [address] [facility] [place] [address] PCP - General Family Medicine 06/22/21 Store Detective Relationship Specialty Start Date End Date Mciky Frederick MD [address] [facility] [place] [address] PCP - General Family Medicine 06/22/21 Store Detective Relationship Specialty Start Date End Date Micky Frederick MD [address] [facility] [place] [address] PCP - General Family Medicine 06/22/21 Store Detective Relationship Specialty Start Date End Date Micky Frederick MD [facility] [place] [address] PCP - General Family Medicine 06/22/21 Store Detective Relationship Specialty Start Date End Date Micky Frederick MD [facility] [place] [address] PCP - General Family Medicine 06/22/21 Store Detective Relationship Specialty Start Date End Date Micky Frederick MD [facility] [place] [address] PCP - General Family Medicine 06/22/21 Store Detective Relationship Specialty Start Date End Date Micky Frederick MD [facility] [place] [address] PCP - General Family Medicine 06/22/21 Store Detective Relationship Specialty Start Date End Date Micky Frederick MD [facility] [place] [address] PCP - General Family Medicine 06/22/21 Store Detective Relationship Specialty Start Date End Date Micky Frederick MD [facility] [place] [address] PCP - General Family Medicine 06/22/21 Store Detective Relationship Specialty Start Date End Date Micky Frederick MD [address] [place] [address] PCP - General Family Medicine 06/22/21 Store Detective Relationship Specialty Start Date End Date Micky Frederick MD [address] [place] [address] PCP - General Family [facility] 06/22/21 Store Detective Relationship Specialty Start Date End Date Micky Frederick MD [address] [place] [address] PCP - [facility] 06/22/21 Store Detective Relationship Specialty Start Date End Date Micky Frederick MD [address] [place] [address] PCP - [facility] 06/22/21 Store Detective Relationship Specialty Start Date End Date Micky Frederick MD [address] [place] [address] PCP - General [facility] 06/22/21 INFORMATION SOURCE (unrecogn ized section and [...] BE BASED ON THE PRIMARY CLINICAL RECORDS. [employer] [facility]. provides no warranty or guarantee of the accuracy or completeness of information in this document.
--- NOTE | 2023-09-24 07:06 | RAD_ITS ---
INDICATION: LAP TANO EXAMINATION/TECHNIQUE: Cine intraoperative films are presented for evaluation. Total Fluoroscopic Time: 39 seconds OR Radiation dosage index: 13.14 mGy COMPARISON: Gallbladder ultrasound of the same day. FINDINGS: Contrast appears to be injected into the gallbladder. Filling defect in the neck of the gallbladder at the origin of the cystic duct likely due to gallstone. There is however collection of contrast in the right upper quadrant extending from the region of the surgical probes to the right upper quadrant concerning for extravasated contrast. The common bile duct is opacified. No constant filling defect or definite retained stones are seen. There is free passage into the duodenum. RAD/Cholangiogram/ O R,Initial IMPRESSION: Extravasated contrast in the right upper quadrant as described above. No evidence of filling defect or definite retained stones in the common bile duct. Electronically Signed: Jeevan Valero MD at 11:49 EST ,
[2023-09-24 07:17] LABS: Troponin-I HS 3 pg/mL (3.0-54.0)
--- NOTE | 2023-09-24 08:21 | NURSING ---
DR EMERY IN ROOM
--- NOTE | 2023-09-24 10:11 | HP.PCM.SX_ITS ---
HPI - General General Date of Admission: 09/24/23 HPI Narrative ZAINAB SANTIAGO, is a 43 F who presents with right upper quadrant pain and nausea. The patient reports she has been dealing with these attacks since a year ago. She denies fevers or chills. She says the pain radiates to the back. It started late last night. [facility] Medical History Advanced maternal age (AMA) in Gestational diabetes Gestational diabetes History of in vitro fertilization History of loss of consciousness Infertility macrosomia Seasonal allergies Staph infection Tinea corporis Home Medications NK 09/24/23 [History Last Taken Unknown] Allergy/AdvReac Type Severity Reaction Status Date / Time adhesive tape Allergy Unknown Verified 09/24/23 04:04 Family History Other Epilepsy Hypertension Skin cancer Surgical History H/O wisdom tooth extraction Hx of section Status post repeat low transverse section Social History (Updated 09/24/23 @ 04:[address] Ag Villa MD) household members: spouse and children Smoking Status: Never smoker alcohol intake: never ROS Constitutional Constitutional: Reports anorexia; Denies chills, fatigue or fever(s) Eyes Eyes: Denies blurry vision ENT HEENT: Denies abnormal hearing Cardiovascular Cardiovascular: Denies chest pain Respiratory/Chest Respiratory/Chest: Denies cough or dyspnea Gastrointestinal Gastrointestinal: Reports abdominal pain and nausea; Denies constipation or vomiting Genitourinary Genitourinary: Denies change in urinary stream Musculoskeletal Musculoskeletal: Denies abnormal gait or back pain Integumentary Integumentary: Denies jaundice Neurologic Neurologic: Denies abnormal gait Psychiatric Psychiatric: Denies anxiety Endocrine Endocrinology: Denies heat intolerance Hematologic/Lymphatic Hematologic/Lymphatic: Denies easy bleeding Vital Signs Vital Signs Vital Signs: 09/24/23 04:04 09/24/23 06:45 09/24/23 06:46 Temperature 97.9 F 98.4 F Temperature Source Temporal Temporal Pulse Rate 89 61 85 Respiratory Rate 16 16 16 Blood Pressure 138/83 H 106/68 135/74 H Blood Pressure Mean 101 80 94 Pulse Ox 98 98 99 Oxygen Delivery Method Room Air Room Air 09/24/23 07:46 09/24/23 08:46 09/24/23 09:46 Temperature 98.5 F 98.6 F 98.3 F Temperature Source Temporal Temporal Temporal Pulse Rate 82 88 80 Respiratory Rate 18 16 18 Blood Pressure 129/78 H 131/72 H 125/80 H Blood Pressure Mean 95 91 95 Pulse Ox 98 98 99 Oxygen Delivery Method Room Air Room Air Room Air 09/24/23 10:00 Temperature 98.4 F Temperature Source Temporal Pulse Rate 76 Respiratory Rate 16 Blood Pressure 130/84 H Blood Pressure Mean 99 Pulse Ox 97 Oxygen Delivery Method Room Air Weight Weight: 159 lb 9.835 oz Body Mass Index (BMI) 31.1 Physical Exam Const oriented x3 and no apparent distress Resp normal respiratory effort Cardio regular rate and regular rhythm GI soft to palpation Palpation: tender LUQ Extremity normal to inspection Results Lab / Micro Data 09/24/23 04:10 Labs: Laboratory Results - last 24 hr 09/24/23 04:10: WBC 9.6, RBC 4.14 L, Hgb 12.5, Hct 38.4, MCV 92.8, MCH 30.2, MCHC 32.6, RDW Std Deviation 41.6, RDW Coeff of Ella 12.2, Plt Count 356, MPV 9.1, Immature Gran % (Auto) 0.400, Neut % (Auto) 77.0 H, Lymph % (Auto) 14.2 L, [place] % (Auto) 6.4, Eos % (Auto) 1.6, Baso % (Auto) 0.4, Absolute Neuts (auto) 7.4, Absolute Lymphs (auto) 1.36, Nucleated RBC % 0, Total Bilirubin 0.50, Direct Bilirubin 0.22, AST 287 H, ALT 161 H, Alkaline Phosphatase 328 H, Troponin I High Sens 3, Total Protein 7.4, Albumin 3.8, Globulin 3.6, Lipase 56, Serum , Qual NEGATIVE Imaging Radiology Impression Gallbladder Ultrasound 09/24/23 04:54 IMPRESSION: undefined Assessment & Plan Assessment/Plan (1) Cholelithiasis with acute cholecystitis: QUALIFIERS: Biliary obstruction: without biliary obstruction Qualified Code(s): K80.00 - Calculus of gallbladder with acute cholecystitis without obstruction PLAN: The patient has normal white count but she does have a left shift. They performed ultrasound of her gallbladder which showed thickening and cholelithiasis suggestive of acute cholecystitis. The patient is having pain in her right upper quadrant rating to the back with nausea. Patient likely has acute cholecystitis and I recommend laparoscopic cholecystectomy. I discussed the procedure in detail with the patient. I discussed the risks, benefits, and alternatives of the procedure. I discussed the risks including but not limited to bleeding, infection, injury to surrounding organs such as the liver, bile duct, bowels. I did discuss the possibility of having to convert to an open procedure as well as the possibility that if any injuries occurred this may necessitate further surgery at a tertiary care center. Ty Tang MD Pager: [facility] [address] [place] [address] [address] [place] [address] Office:
[2023-09-24] MEDS: Bupivacaine 0.25% 30 ML Vial (11:20)
--- NOTE | 2023-09-24 11:34 | OP.PCM_ITS ---
Report of Operation Date of Procedure: 09/24/23 Pre-Operative Diagnosis: Acute cholecystitis Post-Operative Diagnosis: Acute cholecystitis Surgery/Procedure Performed:: Laparoscopic cholecystectomy with cholangiograms Type of Anesthesia: General/Regional Specimen's removed: Gallbladder Estimated Blood Loss (mL): 10 Description of Procedure: After obtaining informed consent patient was brought back to the operating room. General anesthesia was induced. The abdomen was prepped and draped in usual sterile fashion. A small midline incision was made superior to the umbilicus and deepened to the level of fascia. The fascia was elevated and incised. Next the peritoneum was elevated and incised in the same fashion. Finger sweep was performed and the Cheema trocar was placed into the abdomen. The balloon was inflated. The abdomen was inflated to 15 mmHg. Next a camera was introduced into the abdomen and the abdomen was inspected. Next under direct visualization three 5-mm ports were placed one subxiphoid and 2 subcostal. Next the gallbladder was elevated and retracted toward the right shoulder. The peritoneum was stripped from the gallbladder. The infundibulum was located and retracted laterally. Next the triangle of Calot was dissected and the cystic duct and cystic artery were identified. Cholangiograms were performed. The Corona clamp was used to clamp across the infundibulum and the catheter needle was inserted into the gallbladder. Under fluoroscopy contrast was instilled into the gallbladder and the common duct, cystic duct as well as proximal hepatic ducts were identified. There was good filling of the duodenum. There were no filling defects noted in the common bile duct. The clamp was removed as well as the needle and the infundibulum was grasped once more. Three hemolock clips were placed across the cystic duct. The cystic duct was then divided leaving 2 clips on the stump. The cystic artery was clipped and divided in the same fashion. The hook cautery was then used to take the gallbladder off of the gallbladder bed. The gallbladder was inflamed between the gallbladder and the liver especially distally. Hemostasis was obtained. Gallbladder fossa was irrigated and no active bleeding or bile leakage was noted. Next the camera was introduced in the subxiphoid port. An Endopouch bag was placed through the u mbilical port and the gallbladder was placed into it. The gallbladder was then removed through the umbilical incision. The camera was then reinserted through the umbilical port. The gallbladder fossa was inspected once more and noted to be hemostatic with no leaking bile. The abdomen was suctioned dry. The 5 mm ports were removed under direct visualization. The umbilical port was then removed and the air was removed from the abdomen. Next using an 0 Vicryl suture the umbilical fascia was closed in a [id number] fashion. The umbilical port site was irrigated local anesthetic was administered to all the incisions. All the incisions were closed with interrupted subcuticular 4-0 Monocryl sutures followed by Steri-Strips and dressings. The patient was awoken and taken to PACU in stable condition. Admit VTE Documentation VTE Mechan Device Prophylaxis: SCD's
--- NOTE | 2023-09-24 11:35 | GALL_PTH ---
PATHOLOGY RESULTS PATIENT: ZAINAB SANTIAGO LOC: [facility] U#:[id number] AGE/SX: 43/F ROOM: [facility] RE09/24/[address]: Dr. Ty Tang MD : 1980 BED: 1 DIS: 09/24/2023 SPEC #: [id number] RECD: 09/25/23 09:05 STATUS: STACEY LEON #: [id number] ENID: 09/24/23 11:[address]: Ty Tang DEPT: SURGICAL PATHOLOGY RECD BY: Juana Cedeño ENTERED: 09/25/23 10:14 SP TYPE: TINA GARZON DR: Dr. Manuel Noland MD Tissues: Gallbladder, NOS Procedures: Surgery Specimen Level III HEADER OPERATION: Laparoscopic cholecystectomy with IOC PRE-OP DIAGNOSIS: Cholelithiasis with acute cholecystitis TISSUE SUBMITTED: Gallbladder MICROSCOPIC DIAGNOSIS Gallbladder, cholecystectomy: Chronic cholecystitis, cholelithiasis and focal cholesterolosis. SJ:dennis 09/26/2023 MICROSCOPIC DESCRIPTION Slides are reviewed. GROSS DESCRIPTION Received is one container labeled with the patient's name and designated gallbladder. The specimen consists of a gallbladder measuring 9.0 cm in length and up to 4.0 cm in diameter. The external surface is pink-lynn, smooth and glistening for the most part. Focally it is granular, hemorrhagic and contains cautery artifact. The gallbladder contains green-yellow mucoid bile and multiple black and greenish-yellow stones measuring in aggregate 4.5 x 4.0 x 1.0 cm and <0.1 to 1.0 cm in greatest dimension. The mucosa is bile-stained and without any mass lesions. The gallbladder wall measures up to 0.3 cm in thickness. Shift Production Supervisor sections from the gallbladder and the cystic duct are submitted in one cassette. / VAHID:dennis 09/25/2023 TC:3 CPT: 67028
--- NOTE | 2023-09-24 11:52 | DCINST_ITS ---
Discharge Instructions Procedure Gallbladder Diet Discharge Diet: Light diet - advance as tolerated Activity Discharge Activity: May Not Drive (for 2-3 days or while taking narcotic pain medications.) and - (Do not drive, work heavy equipment or sign legal documents for 24 hours.) May shower in (days): 1 Lifting Restrictions: 20 lbs for 2 weeks Additional Activity Instructions:: Pain medication may cause nausea. You should typically eat light foods as you take your pain medications. Pain medication may also cause constipation. If this is a problem for you, please discuss with your doctor. Dressing / Incision Call your doctor if your incision/area has: Continuous Slow Oozing, Sudden Increased Bleeding, Increased Pain/ Swelling, Increased Redness and Foul Smelling Discharge Call your doctor if you observe: Fever of 101 or Higher Suture Line Care: Avoid Pulling/Pushing and Avoid Pinching/Bending Remove Dressing in: 2 days (Remove clear bandages in 2 days, remove Steri-Strips in 7 to 10 days) Additional Dressing/Incision Instructions:: Leave operative bandaids on for 2 days. When you remove dressing, leave Steri-Strips on until your follow-up appointment, or until the Steri-Strips fall off on their own. Follow Up Care Please Follow Up With: Ty Tang MD When: Please call to schedule 2 week follow up appointment. [phone] Test Results: Test results from this visit will be discussed in further detail at your follow- up appointment, if applicable. Discharge Plan Admission Admit Date/Time: 09/24/23 06:53 Attending Provider: Ty Tang Primary Care Provider: Manuel Noland Instructions Additional Instructions / Restrictions: Alternate ibuprofen and Tylenol for pain, oxycodone for breakthrough pain. Discharge Orders/Prescriptions Prescriptions: New acetaminophen 325 mg Tablet 650 mg PO Q4H PRN PRN (Reason: Pain Or Fever) Qty: 0 0RF oxycodone 5 mg Tablet 5 - 10 mg PO Q4H PRN PRN (Reason: Pain Score 4-10/10) 5 Days Qty: 20 0RF Referrals / Follow Up: Manuel Noland MD [Primary Care Provider] - Disposition Disposition (needs filled in before D/C Order can be placed): Home, Self Care
--- OUTSIDE RECORDS SUMMARY | 2023-09-24 14:25 | XMS RPT_ITS | CCD ---
Author Name Unknown Address [address] [place] [address] Organization [facility] Care Team Providers Care Studio Operation Engineer Name Role Phone Micky Frederick MD Primary [...] agent; Translations: [ADHESIVE] Drug Allergy 06-03-2021 Unknown [facility] Medications Completed/Discontinued Medications Medication Drug Class(es) [...] 72.12 kg Bertram Quintana MD Work Phone: [facility] 09-06-2022 09:00-0500 Diastolic blood pressure 70 mm[Hg] Bertram Quintana MD Work Phone: [facility] 09-06-2022 09:00-0500 Systolic blood pressure 98 mm[Hg] Bertram Quintana MD Work Phone: [facility] 07-22-2022 10:54-0500 Body weight 80.88 kg Bertram Quintana MD Work Phone: [facility] 07-22-2022 10:54-0500 Diastolic blood pressure 62 mm[Hg] Bertram Quintana MD Work Phone: [facility] 07-22-2022 10:54-0500 Heart rate 81 /min Bertram Quintana MD Work Phone: [facility] 07-22-2022 10:54-0500 SaO2% (BldA) [Mass fraction] 100 % Bertram Quintana MD Work Phone: [facility] 07-22-2022 10:54-0500 Systolic blood pressure 98 mm[Hg] Bertram Quintana MD Work Phone: [facility] 07-15-2022 09:04-0500 Body height 152.4 cm Bertram Quintana MD Work Phone: [facility] 07-15-2022 09:04-0500 Body weight 80.74 kg Bertram Quintana MD Work Phone: [facility] 07-15-2022 09:04-0500 Diastolic blood pressure 62 mm[Hg] Bertram Quintana MD Work Phone: [facility] 07-15-2022 09:04-0500 Systolic blood pressure 118 mm[Hg] Bertram Quintana MD Work Phone: [facility] 07-06-2022 08:17-0500 Body weight 78.93 kg Kelli Arnett MD Work Phone: [facility] 07-06-2022 08:17-0500 Diastolic blood pressure 72 mm[Hg] Kelli Arnett MD Work Phone: [facility] 07-06-2022 08:17-0500 Systolic blood pressure 114 mm[Hg] Kelli Arnett MD Work Phone: [facility] 06-23-2022 13:56-0400 Body weight 79.83 kg Angie Plotts SLIP MIXER.CNM Work Phone: [facility] 06-23-2022 13:56-0400 Diastolic blood pressure 88 mm[Hg] Angie Plotts SLIP MIXER.CNM Work Phone: [facility] 06-23-2022 13:56-0400 Systolic blood pressure 128 mm[Hg] Angie Plotts SLIP MIXER.CNM Work Phone: [facility] 06-10-2022 13:26-0400 Body weight 78.93 kg Angie Plotts SLIP MIXER.CNM Work Phone: [facility] 06-10-2022 13:26-0400 Diastolic blood pressure 66 mm[Hg] Angie Plotts SLIP MIXER.CNM Work Phone: [facility] 06-10-2022 13:26-0400 Systolic blood pressure 102 mm[Hg] Angie Plotts SLIP MIXER.CNM Work Phone: [facility] 05-25-2022 13:19-0400 Body weight 78.83 kg Bere Mccauley MD Work Phone: [facility] 05-25-2022 13:19-0400 Diastolic blood pressure 74 mm[Hg] Bere Mccauley MD Work Phone: [facility] 05-25-2022 13:19-0400 Systolic blood pressure 110 mm[Hg] Bere Mccauley MD Work Phone: [facility] 05-12-2022 08:39-0400 Body weight 77.66 kg Bere Mccauley MD Work Phone: [facility] 05-12-2022 08:39-0400 Diastolic blood pressure 62 mm[Hg] Bere Mccauley MD Work Phone: [facility] 05-12-2022 08:39-0400 Systolic blood pressure 100 mm[Hg] Bere Mccauley MD Work Phone: [facility] 04-12-2022 08:35-0400 Body weight 77.11 kg Kelli Arnett MD Work Phone: [facility] 04-12-2022 08:35-0400 Diastolic blood pressure 62 mm[Hg] Kelli Arnett MD Work Phone: [facility] 04-12-2022 08:35-0400 Systolic blood pressure 108 mm[Hg] Kelli Arnett MD Work Phone: [facility] 03-11-2022 14:50-0400 Body weight 74.39 kg Angie Padilla SLIP MIXER.CNM Work Phone: [facility] 03-11-2022 14:50-0400 Diastolic blood pressure 60 mm[Hg] Angie Plotts SLIP MIXER.CNM Work Phone: [facility] 03-11-2022 14:50-0400 Systolic blood pressure 110 mm[Hg] Angie Plotts SLIP MIXER.CNM Work Phone: [facility] 02-17-2022 16:35-0400 Body weight 73.48 kg Angie Padilla SLIP MIXER.CNM Work Phone: [facility] 02-17-2022 16:35-0400 Diastolic blood pressure 74 mm[Hg] Angie Padilla SLIP MIXER.CNM Work Phone: [facility] 02-17-2022 16:35-0400 Systolic blood pressure 120 mm[Hg] Angie Padilla SLIP MIXER.CNM Work Phone: [facility] 01-18-2022 15:08-0400 Body weight 73.03 kg Hansel Farr MD Work Phone: [facility] 01-18-2022 15:08-0400 Diastolic blood pressure 74 mm[Hg] Hansel Farr MD Work Phone: [facility] 01-18-2022 15:08-0400 Systolic blood pressure 120 mm[Hg] Hansel Farr MD Work Phone: [facility] 12-21-2021 10:03-0400 Body height 151 cm Bertram Quintana MD Work Phone: [facility] 12-21-2021 10:03-0400 Body weight 73.21 kg Bertram Quintana MD Work Phone: [facility] 12-21-2021 10:03-0400 Diastolic blood pressure 72 mm[Hg] Bertram Quintana MD Work Phone: [facility] 12-21-2021 10:03-0400 Systolic blood pressure 118 mm[Hg] Bertram Quintana MD Work Phone: [facility] Encounters Encounter Date Encounter Type Care Provider Facility Start: 07-05-2023 ambulatory Micky owens MD Work Phone: [facility] Start: 06-26-2023 ambulatory Bertram Bentley Work Phone: OB/Gynecology Procedures Date Procedure Procedure Detail Performing Clinician Start: 07-22-2022 URINE OB DIP B/O Bertram Quintana MD Work Phone: Start: 07-15-2022 URINE OB DIP B/O Bertram Quintana MD Work Phone: Start: 07-06-2022 URINE OB DIP B/O Mckenna Arnett MD Work Phone: Start: 07-06-2022 Us preg uterus after 1st trimest 08/28 gestation Angie Padilla SLIP MIXER.CNM Work Phone: Start: 06-23-2022 URINE OB DIP B/O Solrito Padilla SLIP MIXER.CNM Work Phone: Start: 06-10-2022 URINE OB DIP [...] 02-17-2022 URINE OB DIP B/O Flor Padilla SLIP MIXER.CNM Work Phone: Start: 01-18-2022 URINE OB DIP B/O Bertram Quintana MD Work Phone: Start: 01-18-2022 Us nuchal translucency gestation Bertram Quintana MD Work Phone: Start: 12-23-2021 CBCDIF (EXTERNAL) [facility]vider Start: 12-23-2021 Hemoglobin A1c/Hemoglobin.total in Blood [facility] Provider H/O: section History of delivery, currently Bertram Quintana MD Work Phone: H/O: section History of delivery, currently Angie Padilla SLIP MIXER.CNM Work Phone: Plan of Treatment Date Care Activity Detail Author Start: 05-12-2032 Urine microalbumin profile [facility] Start: 04-09-2029 Urine microalbumin profile DTAP,TDAP,TD (3 - Td or Tdap) [facility] Start: 09-06-2027 HPV TESTING HPV TESTING [facility] Start: 09-06-2027 PAP TESTING PAP TESTING [facility] Start: 07-18-2024 HPV TESTING HPV TESTING [facility] Start: 07-18-2024 PAP TESTING PAP TESTING [facility] Start: 04-28-2023 Covid-19 Vaccine () Covid-19 Vaccine () [facility] Start: 04-28-2023 Influenza vaccination Influenza Vaccine (#1) [facility] Start: 08-28-2022 DEPRESSION ASSESSMENT DEPRESSION ASSESSMENT [facility] Start: 2022 Mammography [facility] Start: 06-13-2022 End: 06-13-2023 OBSTETRIC ULTRASOUND WHI OBSTETRIC ULTRASOUND I Anc Imaging Routine GDM, class A2 Antepartum multigravida of advanced maternal age Expected: 06/13/2022, Expires: 06/13/2023 [facility] Work Phone: Immunizations Immunization Date Immunization Notes Care Provider [facility] 05-27-2022 influenza virus vaccine, unspecified formulation Bertram Quintana MD Work Phone: [facility] 05-12-2022 tetanus toxoid, redu osman diphtheria toxoid, and acellular pertussis vaccine, adsorbed Bere Mccauley MD Work Phone: [facility] 04-09-2019 tetanus toxoid, redu osman diphtheria toxoid, and acellular pertussis vaccine, adsorbed Argenis Dyer ANCELMO.CNM Work Phone: [facility] 10-04-2016 tetanus toxoid, redu osman diphtheria toxoid, and acellular pertussis vaccine, adsorbed Argenis Dyer ANCELMO.CNM Work Phone: [facility] Work Phone: Payers Date Payer Category Payer Private Health Insurance FORMERLY [facility], 1928–1983 Kenn [facility] [employer] [id number] 2022-Present [phone] [address] [place] [id number] PPO [id number] 2019 Unknown MMO MMO TPA [id number] 2019-Present [address] [place] [address] PPO [id number] 2019 Unknown MMO MMO TPA [id number] 2019-Present [address] [place] [address] PPO [id number] 2019 Unknown [id number] Social History Date Type Detail Facility Start: 05-12-2022 Tobacco smoking stat us IAIS Never smoked tobacco [facility] Start: 06-22-2021 End: 09-06-2022 Alcohol intake Current drinker of alcohol (finding) [facility] Start: 05-10-2016 History SDOH Alcohol Comment Rarely, not while [facility] Start: 1980 Sex Assigned At Not on file [facility] Start: 11-19-2021 End: 07-15-2022 Exposure to SARS-CoV-2 (event) Not sure [facility] Start: 12-09-2021 Education 17 [facility] Start: 11-07-2021 [facility] Start: 05-12-2022 Tobacco use and exposure Smoke less tobacco non-user [facility] Start: 09-06-2022 End: 09-10-2022 History of Social function [facility] Start: 09-06-2022 End: 09-10-2022 Tobacco use panel [facility] National Score (1-10 0), lower number is lower risk 53 [facility] Medical Equipment Procedure Code Equipment Code [...] Note Patient Outreach (IN TMMN) ZAINAB SANTIAGO ([id number]) 1980 F Date Time Provider Department 07/05/23 MICKY FREDERICK During your visit today, we recorded the following information about you: Allergies As of Date: 07/05/2023 Noted Allergy Reaction ADHESIVE 06/03/2021 16 - Unknown Date Reviewed: 09/06/2022 Reviewed by: Bertram Quintana MD - Fully Assessed Visit Diagnosis:Encounter for screening mammogram for breast cancer [Z12.31] Order(s):[facility] SCREENING [[id number]] Order #: [id number] FUTURE Prescriptions as of 07/10/2023 - Ferrous [...] Encounter Status:Closed by MARGOTH STARKEY on 07/10/23 [facility] 06-23-2023 Miscellaneous Notes Formattin g of this note might be different from the original. Form signed by provider and faxed. Lexie Richmond RN Noted & will sign Bertram Quintana MD Received a fax from patient needing her Healthy Living Form signed by JAMES for her employer at [employer]. Patient last seen 08/2022 and has her annual exam with JAMES on 09/07/23. Form to JAMES to sign. Danya Rueda RN documented in this encounter [facility] 10-26-2022 Note HNO ID: [id number] Author: Danya Rueda RN Service: ? Author Type: ? Type: Progress Notes Filed: 10/26/2022 2:47 PM Note Text: Received lab results from [employer] [facility] [facility] - Please review. Scan on 10/26/2022 1:53 PM by External Provider: Miscellaneous Lab [facility] 10-26-2022 History of Presen t illness Narrative Received lab results from [employer] [facility] - Please review. Scan on 10/26/2022 1:53 PM by External Provider: Miscellaneous Lab documented in this encounter [facility] 09-06-2022 Note HNO ID: [id number] Author: Bertram Quintana MD Service: ? Author [...] Menstrual pattern prior to : Regular periods Mesic since delivery: Not resumed Depression: denies symptoms [...] PACKAGE UNSPECIFIED ORAL SURGERY PROCEDURE, BY REPORT [place] teeth extracted FAMILY HISTORY Problem Relation Age [...] external genitalia normal, normal Bartholin's glands, urethra, Lakehead's glands, no vulvar lesions, no cervical lesions, [...] H/o GDM - PP screening ordered at [facility] Bertram Quintana MD [facility] 09-06-2022 History of Presen t illness [...] Menstrual pattern prior to : Regular periods Mesic since delivery: Not resumed Depression: denies symptoms [...] PACKAGE UNSPECIFIED ORAL SURGERY PROCEDURE, BY REPORT [place] teeth extracted FAMILY HISTORY Problem Relation Age [...] external genitalia normal, normal Bartholin's glands, urethra, Lakehead's glands, no vulvar lesions, no cervical lesions, [...] H/o GDM - PP screening ordered at [facility] Bertram Quintana MD documented in this encounter [facility] 08-09-2022 Miscellaneous Notes Formattin g of this note might be different from the original. FMLA paperwork completed, faxed to employer , scanned into EMR and filed in LOAN PROCESSOR suite. Bernarda Henderson LPN FMLA return to work forms completed and placed on providers desk for signature. Bernarda Henderson LPN documented in this encounter [facility] 08-02-2022 Note HNO ID: [id number] Author: Bertram Quintana MD Service: ? Author [...] Level: 1 - N/A Bertram Quintana MD [facility] 07-28-2022 Miscellaneous Notes Formattin g of this note might be different from the original. [facility] paperwork completed, faxed to employer, scanned into EMR and filed in LOAN PROCESSOR suite. Bernarda Henderson LPN [facility] paperwork completed and placed on providers desk for signature. Bernarda Henderson LPN Received [facility] paperwork. Pt had c/s today. Will reach out to patient via [employer] for dates of leave. Bernarda Henderson LPN documented in this encounter [facility] 07-28-2022 Note Patient Outreach (IN TMMN) ZAINAB SANTIAGO ([id number]) 1980 F Date Time Provider Department 07/28/22 MICKY FREDERICK During your visit today, we recorded the following information about you: Allergies As of Date: 07/28/2022 Noted Allergy Reaction ADHESIVE 06/03/2021 16 - Unknown Date Reviewed: 07/22/2022 Reviewed by: Bertram Quintana MD - Fully Assessed Visit Diagnosis:Encounter for screening mammogram for breast cancer [Z12.31] Order(s):[facility] SCREENING [[id number]] Order #: [id number] FUTURE Prescriptions as of 08/01/2022 - insulin [...] Anemia in [O99.019] 05/09/2022 Encounter Status:Closed by [employer] on 08/01/22 [facility] 07-26-2022 Note HNO ID: [id number] Author: Comfort Claros RN Service: ? Author Type: ? Type: Progress Notes Filed: 07/26/2022 3:25 PM Note Text: Patient delivered via by Dr. Quintana on 07/26/22 at [facility]. See OB history. Comfort Claros RN [facility] 07-26-2022 History of Presen t illness Narrative Patient delivered via by Dr. Quintana on 07/26/22 at [facility]. See OB history. Comfort Claros RN documented in this encounter [facility] 07-22-2022 Miscellaneous Notes Formattin g of this note might be different from the original. KJ - No VB/LOF/ctxs. Reports good FM. A&P: Pre-op for repeat today. Informed consent signed today. GDM - BS overall normal per patient. Continue NPH at bedtime. Reviewed labor & FM precautions Bertram Quintana MD documented in this encounter [facility] 07-22-2022 Instructions Christine Higgins Ma - 07/22/2022 10:49 AM EST SEQUENTIAL SCREENINGS The [facility] offers sequential screenings for women who [...] It will require an appointment with our software validation technician. This is not an ultrasound performed [...] the above symptoms, contact our office at [phone] and ask to speak with a nurse. After hours, you can call doctors registry at [phone] OR call [facility] at [phone] and ask to have the doctor environmental consultant paged. If you consider this an emergency, dial 9-9-7 or go to your nearest emergency department. NEED HELP? Are you dealing with a violent or abusive relationship? Are you a victim of rape or sexual assult? Call [facility] ([place]) 24 hour Crisis Hotline: 592.497.4713 or 353-816-6703. MANUAL Your Guide to a Healthy manual is now on-line. Visit [email or web address] [email or web address] to download your free copy documented in this encounter [facility] 07-15-2022 Miscellaneous Notes Formattin g of [...] Labs: LFT's & bile acids ordered at [facility] to exclude cholestasis. Suspect itching is viral related. GDM - BS normal, continue NPH at bedtime Anemia - encouraged Fe & Regular PNV use Labor precautions reviewed, Kick counts reviewed. MOD - repeat Bertram Quintana MD documented in this encounter [facility] 07-15-2022 Instructions Christine Higgins Ma - 07/15/2022 8:55 AM EST SEQUENTIAL SCREENINGS The [facility] offers sequential screenings for women who [...] It will require an appointment with our software validation technician. This is not an ultrasound performed [...] the above symptoms, contact our office at [phone] and ask to speak with a nurse. After hours, you can call [facility] at [phone] OR call [facility] at [phone] and ask to have the doctor environmental consultant paged. If you consider this an emergency, dial 9-- or go to your nearest emergency department. NEED HELP? Are you dealing with a violent or abusive relationship? Are you a victim of rape or sexual assult? Call [facility] ([place]) 24 hour Crisis Hotline: 731.864.9206 or 595-347-0173. MANUAL Your Guide to a Healthy manual is now on-line. Visit [email or web address] [email or web address] to download your free copy documented in this encounter [facility] 07-11-2022 Miscellaneous Notes Formattin g of this note might be different from the original. Spoke with charge nurse Cyndi on L&D. Cyndi said to have patient call and ask to speak with charge nurse instead of sexton helper. Patient notified and will call today to schedule. Lexie Richmond RN I don't know. Usually sees KJ. I told her she didn't need one last week b/c had BPP but don't know why they won't schedule her. Fax new order is fine. Thanks. Kelli Arnett MD Pt calling and stated that she is having weekly NST at [employer], pt called this am and stated that she tried to call and schedule this for tomorrow and the L&D sexton helper stated that we need to call to given permission to schedule this. Was an order already sent over? I printed off the order, refaxed it and then contacted L&D. Bernarda Henderson LPN documented in this encounter [facility] 07-06-2022 Miscellaneous Notes Formattin g of [...] Kelli Arnett M.D. documented in this encounter [facility] 07-06-2022 Instructions Charis Echavarria Tn - 07/06/2022 8:01 AM EST SEQUENTIAL SCREENINGS The [facility] offers sequential screenings for women who [...] It will require an appointment with our software validation technician. This is not an ultrasound performed [...] the above symptoms, contact our office at [phone] and ask to speak with a nurse. After hours, you can call doctors registry at [phone] OR call [facility] at [phone] and ask to have the doctor environmental consultant paged. If you consider this an emergency, dial 9- or go to your nearest emergency department. NEED HELP? Are you dealing with a violent or abusive relationship? Are you a victim of rape or sexual assult? Call [facility] ([place]) 24 hour Crisis Hotline: 232.711.8793 or 537-383-1745. MANUAL Your Guide to a Healthy manual is now on-line. Visit [email or web address] [email or web address] to download your free copy documented in this encounter [facility] 06-27-2022 Miscellaneous Notes Formattin g of [...] schedule these herself because she was a [employer] employee. Even added on the fax cover sheet that patient was going to be calling to schedule weekly NSTs herself. Comfort Claros RN Patient 35w1d needs weekly NST's. Patient was told she could do them at [employer] because she works there. Patient called them and tried to set them up, but was told that our office needs to set them up. Patient last seen 06/23 and NST done on that day. Does order need to be faxed to L&D for NST's? Lexie Richmond RN documented in this encounter [facility] 06-23-2022 History of Presen t illness [...] Angie Padilla APRN.CNM documented in this encounter [facility] 06-23-2022 Miscellaneous Notes Formattin g of [...] in 1 week for NST (completing at [employer] [facility] when gets off work) and 2 weeks for follow up growth US and INA. Patient needs to be physician only patient due to GDM A2. Angie Padilla APRN.CNM documented in this encounter [facility] 06-23-2022 Instructions Aleah Lockwood Ma - 06/23/2022 1:49 PM EDT SEQUENTIAL SCREENINGS The [facility] offers sequential screenings for women who [...] It will require an appointment with our software validation technician. This is not an ultrasound performed [...] the above symptoms, contact our office at [phone] and ask to speak with a nurse. After hours, you can call doctors registry at [phone] OR call [facility] at [phone] and ask to have the doctor environmental consultant paged. If you consider this an emergency, dial 04-28- or go to your nearest emergency department. NEED HELP? Are you dealing with a violent or abusive relationship? Are you a victim of rape or sexual assult? Call [facility] ([place]) 24 hour Crisis Hotline: 543.886.6183 or 535-856-2617. MANUAL Your Guide to a Healthy manual is now on-line. Visit [email or web address] [email or web address] to download your free copy documented in this encounter [facility] 06-13-2022 Miscellaneous Notes Formattin g of this note might be different from the original. Orders signed. Angie Padilla APRN.CNM Please file growth u/s order so patient can schedule. Comfort Claros RN ----- Message from Bere Mccauley MD sent at 06/12/2022 5:44 PM EDT ----- Add to record Needs repeat growth US 4 weeks documented in this encounter [facility] 06-13-2022 Miscellaneous Notes Formattin g of this note might be different from the original. 33w1d 05/12 Office note states to repeat CBC at 32 weeks. [facility] lab order to CP to sign. Danya Rueda RN documented in this encounter [facility] 06-10-2022 Miscellaneous Notes Formattin g of [...] Angie Padilla APRN.CNM documented in this encounter [facility] 06-10-2022 Instructions Aleah Lockwood Ma - 06/10/2022 1:03 PM EDT SEQUENTIAL SCREENINGS The [facility] offers sequential screenings for women who [...] It will require an appointment with our software validation technician. This is not an ultrasound performed [...] the above symptoms, contact our office at [phone] and ask to speak with a nurse. After hours, you can call doctors registry at [phone] OR call [facility] at [phone] and ask to have the doctor environmental consultant paged. If you consider this an emergency, dial 9--1 or go to your nearest emergency department. NEED HELP? Are you dealing with a violent or abusive relationship? Are you a victim of rape or sexual assult? Call [facility] ([place]) 24 hour Crisis Hotline: 733.187.8724 or 981-873-1773. MANUAL Your Guide to a Healthy manual is now on-line. Visit [email or web address]/[email or web address] [email or web address] to download your free copy documented in this encounter [facility] 06-02-2022 Miscellaneous Notes Formattin g of this note might be different from the original. Patient notified To increase bedtime NPH by 4 units for a total of 12 units at bedtime. Med list udated Typically taken right before going to bed or 8 hours prior to when she wakes up documented in this encounter [facility] 05-26-2022 Miscellaneous Notes Formattin g of this note might be different from the original. Orders signed. Angie Padilla APRN.CNM 30w4d Patient needing insulin needles sent to [facility] retail pharmacy. RX for insulin was sent yesterday without needles. Thank you. Requested Prescriptions Pending Prescriptions Disp Refills insulin needles, DISPOSABLE, 31 gauge x 5/16 30 Each 3 Si Each daily at bedtime. Danya Rueda RN documented in this encounter [facility] 05-25-2022 Miscellaneous Notes Formattin g of this note might be different from the original. SW- Pt doing well. No ctx, vb, lof. Good FM. GDM: BG log reviewed and starting NPH 8 units at bedtime. Growth US and NST's ordered. Scheduled to get flu shot with work. RTO 2 wks. Bere Mccauley DO documented in this encounter [facility] 05-25-2022 Instructions Dori Celeste MA - 05/25/2022 1:13 PM EDT SEQUENTIAL SCREENINGS The [facility] offers sequential screenings for women who [...] It will require an appointment with our software validation technician. This is not an ultrasound performed [...] the above symptoms, contact our office at [phone] and ask to speak with a nurse. After hours, you can call doctors registry at [phone] OR call [facility] at [phone] and ask to have the doctor environmental consultant paged. If you consider this an emergency, dial 9--1 or go to your nearest emergency department. NEED HELP? Are you dealing with a violent or abusive relationship? Are you a victim of rape or sexual assult? Call [facility] ([place]) 24 hour Crisis Hotline: 459.409.9390 or 969-189-0180. MANUAL Your Guide to a Healthy manual is now on-line. Visit [email or web address] to download your free copy documented in this encounter [facility] 05-12-2022 Miscellaneous Notes Formattin g of [...] Bere Mccauley DO documented in this encounter [facility] 05-12-2022 History of Presen t illness [...] severely ill: Yes Patient denies history of Guillain-[place] Syndrome (a severe paralytic illness): Yes Tdap Adacel injection was given without incident. See immunizations for details of immunizations administered today. VIS sheet provided: Yes Provider Bere Mccauley DO was present in office at time of injection. Dori Celeste MA documented in this encounter [facility] 05-12-2022 Instructions Dori Celeste MA - 05/12/2022 8:32 AM EDT SEQUENTIAL SCREENINGS The [facility] offers sequential screenings for women who [...] It will require an appointment with our software validation technician. This is not an ultrasound performed [...] the above symptoms, contact our office at [phone] and ask to speak with a nurse. After hours, you can call doctors registry at [phone] OR call [facility] at [phone] and ask to have the doctor environmental consultant paged. If you consider this an emergency, dial 9-1-6 or go to your nearest emergency department. NEED HELP? Are you dealing with a violent or abusive relationship? Are you a victim of rape or sexual assult? Call [facility] ([place]) 24 hour Crisis Hotline: 489.545.1671 or 332-734-9282. MANUAL Your Guide to a Healthy manual is now on-line. 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 Then we will send to KJ to file. Also let her know about anemia Needs iron for anemia. GCT is 193 which indicates GDM. Does not need a 3hr. 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 Bertram Quintana MD 28w1d Received CBC and 1 hour glucose results from [facility]. Please review. Results and order for 3 hour glucose test to KJ to sign if appropriate. Patient does have h/o gestational diabetes with previous . Comfort Claros RN documented in this encounter [facility] documented as of this encounter (statuses as of 08/09/2022) [facility] History of Past illness Narrative* Problem [...] 07/18/2019 Overview: 05/21/19 Hgb 11.7 Eleanor Bryant APRN.[employer] 04/12/19 Hgb 10.2 Fe sulfate 325 mg daily on Mondays, Wednesdays and Fridays. Repeat CBC in one month. Eleanor Bryant APRN.[employer] Abnormal glucose in , antepartum 201807/18/2019 Overview: 04/09/19 1 hr GCT 149. 3 hr GTT ordered. 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 TKRN Supervision of other normal 11/13/2018 12/04/2018 Overview: 11/13/18 - need to discuss CF screening - Bertram Quintana MD Female infertility 08/01/2018 11/13/2018 Overview: Added automatically from request for surgery [id number] Encounter for supervision of normal first in [...] of this encounter (statuses as of 09/06/2022) [facility] History of Past illness Narrative* Problem [...] 07/18/2019 Overview: 05/21/19 Hgb 11.7 Eleanor Bryant APRN.[employer] 04/12/19 Hgb 10.2 Fe sulfate 325 mg [...] I have given patient contact information to [employer] to check on insurance coverage. TKRN Supervision of other normal 11/13/2018 12/04/2018 Overview: 11/13/18 - need to discuss CF screening - Bertram Quintana MD Female infertility 08/01/2018 11/13/2018 Overview: Added automatically from request for surgery [id number] Encounter for supervision of normal first in [...] of this encounter (statuses as of 10/26/2022) [facility] History of Past illness Narrative* Problem [...] 07/18/2019 Overview: 05/21/19 Hgb 11.7 Eleanor Bryant APRN.[employer] 04/12/19 Hgb 10.2 Fe sulfate 325 mg daily on Mondays, Wednesdays and Fridays. Repeat CBC in one month. Eleanor Bryant APRN.[employer] Abnormal glucose in , antepartum 04/10/2019 07/18/2019 Overview: 04/09/19 1 hr GCT 149. 3 hr GTT ordered. 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 TKRN Supervision of other normal 11/13/2018 12/04/2018 Overview: 11/13/18 - need to discuss CF screening - Bertram Quintana MD Female infertility 08/01/2018 9 Overview: Added automatically from request for surgery [id number] Encounter for supervision of normal first in [...] of this encounter (statuses as of 06/23/2023) [facility] History of Past illness Narrative* Problem [...] 07/18/2019 Overview: 05/21/19 Hgb 11.7 Eleanor Bryant APRN.[employer] 04/12/19 Hgb 10.2 Fe sulfate 325 mg daily on Mondays, Wednesdays and Fridays. Repeat CBC in one month. Eleanor Bryant APRN.[employer] Abnormal glucose in , antepartum 04/10/2019 07/18/2019 Overview: 04/09/19 1 hr GCT 149. 3 hr GTT ordered. 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 TKRN Supervision of other normal 11/13/2018 12/04/2018 Overview: 11/13/18 - need to discuss CF screening - Bertram Quintana MD Female infertility 08/01/2018 9 Overview: Added automatically from request for surgery [id number] Encounter for supervision of normal first in [...] of this encounter (statuses as of 06/26/2023) [facility] History of Past illness Narrative* Problem [...] 07/18/2019 Overview: 05/21/19 Hgb 11.7 Eleanor Bryant APRN.[employer] 04/12/19 Hgb 10.2 Fe sulfate 325 mg daily on Mondays, Wednesdays and Fridays. Repeat CBC in one month. Eleanor Bryant APRN.[employer] Abnormal glucose in , antepartum 04/10/2019 07/18/2019 Overview: 04/09/19 1 hr GCT 149. 3 hr GTT ordered. 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 TKRN Supervision of other normal 11/13/2018 12/04/2018 Overview: 11/13/18 - need to discuss CF screening - Bertram Quintana MD Female infertility 08/01/2018 9 Overview: Added automatically from request for surgery [id number] Encounter for supervision of normal first in [...] of this encounter (statuses as of 07/10/2023) [facility]08[facility]16[facility] Miscellaneous Notes* Quick Notes - Kelli Arnett MD - 04/12/2022 8:53 AM EDT RR- Doing well. No VB/LOF. Good FM. NO ctxs. Mild edema. Plans repeat c/s. F/u in 4 weeks or prn. 28 week lab slip given, will do at [facility]. Kelli Arnett MD [facility] Instructions* Patient Instructions* Charis Echavarria Tn - 04/12/2022 8:33 AM EDT SEQUENTIAL SCREENINGS The [facility] offers sequential screenings for women who [...] testing. It will require an appointment withour software validation technician. This is not an ultrasound performed [...] the above symptoms, contact our office at [phone] and ask to speak with anurse. After hours, you can call doctors registry at [phone] OR call [facility] at [phone] ask to have the doctor environmental consultant paged. If you consider this an emergency, dial 9--1 or go to your nearest emergency department. NEED HELP? Are you dealing with a violent or abusive relationship? Are you a victim of rape or sexual assult? Call [facility] ([place]) 24 hour Crisis Hotline: 895.233.1525 or 468-032-3568. MANUAL Your Guide to a Healthy manual is now on-line. Visit [email or web address] to download your free copy [facility] History of Present illness Narrative* Dori Fitzgerald MD - 03/11/2022 5:20 PM EDT Patient here for routine anatomy scan. See ultrasound report for details. Dori Fitzgerald MD documented [facility] Miscellaneous Notes* Quick Notes - Angie [...] needed. Angie Padilla APRN.CNM documented in this encounter[facility]22 Instructions* Patient Instructions* Cande Downey MA - 03/11/2022 2:00 PM EDT SEQUENTIAL SCREENINGS The [facility] offers sequential screenings for women who [...] testing. It will require an appointment withour software validation technician. This is not an ultrasound performed [...] the above symptoms, contact our office at [phone] and ask to speak with anurse. After hours, you can call doctors registry at [phone] OR call [facility] at [phone] ask to have the doctor environmental consultant paged. If you consider this an emergency, dial 0-8-2 or go to your nearest emergency department. NEED HELP? Are you dealing with a violent or abusive relationship? Are you a victim of rape or sexual assult? Call [facility] ([place]) 24 hour Crisis Hotline: 573.146.7485 or 521-179-3456. MANUAL Your Guide to a Healthy manual is now on-line. Visit [email or web address] to download your free copy documented [facility] Miscellaneous Notes* Telephone Encounter - Cande Bond [facility] - 03/02/2022 2:39 PM EDT [...] Asked her to call me back at [phone]. Plan on discussing her abnormal quad screen in relation to her normal NIPT. Cande Bond CGC documented in [facility] encounter[facility]06[facility] Miscellaneous Notes* Quick Notes - Angie [...] complaints. Will have AFP lab drawn at [facility]. Size equal to dates. PTL/ Bleeding precautions reviewed. RTC in 4 weeks foranatomy US and INA. Angie Padilla APRN.CNM documented in this encounterOhio[facility]06[facility]23-[facility]22 Instructions* Patient Instructions* Dori Celeste MA - 02/17/2022 4:31 PM EDT SEQUENTIAL SCREENINGS The [facility] offers sequential screenings for women who [...] testing. It will require an appointment withour software validation technician. This is not an ultrasound performed [...] the above symptoms, contact our office at [phone] and ask to speak with anurse. After hours, you can call doctors registry at [phone] OR call [facility] at [phone] ask to have the doctor environmental consultant paged. If you consider this an emergency, dial 9-2-4 or go to your nearest emergency department. NEED HELP? Are you dealing with a violent or abusive relationship? Are you a victim of rape or sexual assult? Call [facility] ([place]) 24 hour Crisis Hotline: 649.714.4817 or 583-836-8149. MANUAL Your Guide to a Healthy manual is now on-line. Visit [email or web address] to download your free copy documented in [facility] encounter[facility]05[facility] Miscellaneous Notes* Telephone Encounter - Klarissa [...] Provider. Klarissa Flower RN documented in this encounterOhio[facility]05-[facility]22 Miscellaneous Notes* Quick Notes - Bertram Quintana MD - 01/18/2022 4:23 PM EDT KJ - No VB/LOF/ctxs. Denies concerns. A&P: NT with NIPT today Anatomy US ordered MOD - repeat Bertram Quintana MD documented in this encounterOhio[facility]05-24-[facility]22 Instructions* Patient Instructions* Christine Higgins Ma - 01/18/2022 3:56 PM EDT SEQUENTIAL SCREENINGS The [facility] offers sequential screenings for women who [...] testing. It will require an appointment withour software validation technician. This is not an ultrasound performed [...] the above symptoms, contact our office at [phone] and ask to speak with anurse. After hours, you can call doctors registry at [phone] OR call [facility] at [phone] ask to have the doctor environmental consultant paged. If you consider this an emergency, dial 91- or go to your nearest emergency department. NEED HELP? Are you dealing with a violent or abusive relationship? Are you a victim of rape or sexual assult? Call [facility] ([place]) 24 hour Crisis Hotline: 184.630.2512 or 302-532-8752. MANUAL Your Guide to a Healthy manual is now on-line. 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 Bertram Quintana MD documented in this encounterOhio[facility]04-26-[facility]22 Instructions* Patient Instructions* Christine Higgins Ma - 12/21/2021 9:54 AM EDT Please select the following link to access the [facility] Your Guide to a Healthy . [email or web address] documented in this encounterOhio[facility]04-14-2022 Miscellaneous Notes* Quick Notes - Melina [...] I have given patient contact information to [employer] to check on insurance coverage. Patient has a history of gestational diabetes with her last . Last hemoglobin A1c was done June 2021. Patient will plan on early scree rosalinda. Patient has a history of 2 C-sections. She desires a repeat . Patient has a history of macrosomia in prior . Patient declines tubal ligation.Melina Macdonald RN documented in this encounterOhio[facility]04-14-[facility]22 History of Present illness Narrative* Melina [...] Living: None, Comments: None documented in this encounterOhio[facility]04-04-2022 Miscellaneous Notes* Telephone Encounter - Comfort [...] Bernarda Henderson LPN * Telephone Encounter - Dayna Rueda RN - 11/26/2021 8:57 AM EDT LMP 10/24/21 Approximately 4w5d Took a +UPT this morning. Not on any form of contraception. Took a test because she was having mildbreast tenderness and mild nausea. Hx of IVF with her last two pregnancies. Asking if she should have progesterone and HCG levels checked with her history. Danya Rueda RN documented in this encounterOhio[facility]10-26-[facility]21 History of Past illness Narrative* Problem Noted Date Resolved Date History of gestational diabetes 06/22/2021 12/21/2021 Polyhydramnios in third trimester 04/24/2019 07/18/2019 Diet controlled gestational diabetes mellitus (GDM) in third trimester 04/16/2019 07/18/2019 Antepartum anemia 04/10/2019 07/18/2019 Overview: 05/21/19 Hgb 11.7 Eleanor Bryant APRN.[employer] 04/12/19 Hgb 10.2 Fe sulfate 325 mg daily on Mondays, Wednesdays and Fridays. Repeat CBC in one month. Eleanor Bryant APRN.[employer] Abnormal glucose in , antepartum 201807/18/2019 Overview: 04/09/19 1 hr GCT 149. 3 hr GTT ordered. 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 [...] Overview: Added automatically from request for surgery [id number] Encounter for supervision of normal first in [...] of this encounter (statuses as of 12/21/2021) [facility] History of Past illness Narrative* Problem Noted Date Resolved Date History of gestational diabetes 06/22/2021 12/21/2021 Polyhydramnios in third trimester 04/24/2019 07/18/2019 Diet controlled gestational diabetes mellitus (GDM) in third trimester 04/16/2019 07/18/2019 Antepartum anemia 04/10/2019 07/18/2019 Overview: 05/21/19 Hgb 11.7 Eleanor Bryant APRN.[employer] 04/12/19 Hgb 10.2 Fe sulfate 325 mg daily on Mondays, Wednesdays and Fridays. Repeat CBC in one month. Eleanor Bryant APRN.[employer] Abnormal glucose in , antepartum 201807/18/2019 Overview: 04/09/19 1 hr GCT 149. 3 hr GTT ordered. 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 [...] Overview: Added automatically from request for surgery [id number] Encounter for supervision of normal first in [...] her NOB is scheduled 06/08/[address] Ugalde ordered nuchal ultrasound. TKRN Female infertility 09/24/2015 12/27/2016 Infertility counseling 02/17/2015 6 documented as of this encounter (statuses as of 12/23/2021) [facility] History of Past illness Narrative* Problem Noted Date Resolved Date History of gestational diabetes 06/22/2021 12/21/2021 Polyhydramnios in third trimester 04/24/2019 07/18/2019 Diet controlled gestational diabetes mellitus (GDM) in third trimester 04/16/2019 07/18/2019 Antepartum anemia 04/10/2019 07/18/2019 Overview: 05/21/19 Hgb 11.7 Eleanor Bryant APRN.[employer] 04/12/19 Hgb 10.2 Fe sulfate 325 mg daily on Mondays, Wednesdays and Fridays. Repeat CBC in one month. Eleanor Bryant APRN.[employer] Abnormal glucose in , antepartum 201807/18/2019 Overview: 04/09/19 1 hr GCT 149. 3 hr GTT ordered. 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 [...] Overview: Added automatically from request for surgery [id number] Encounter for supervision of normal first in [...] of this encounter (statuses as of 01/18/2022) [facility] History of Past illness Narrative* Problem Noted Date Resolved Date History of gestational diabetes 06/22/2021 12/21/2021 Polyhydramnios in third trimester 04/24/2019 07/18/2019 Diet controlled gestational diabetes mellitus (GDM) in third trimester 04/16/2019 07/18/2019 Antepartum anemia 04/10/2019 07/18/2019 Overview: 05/21/19 Hgb 11.7 Eleanor Bryant APRN.[employer] 04/12/19 Hgb 10.2 Fe sulfate 325 mg daily on Mondays, Wednesdays and Fridays. Repeat CBC in one month. Eleanor Bryant APRN.[employer] Abnormal glucose in , antepartum 201807/18/2019 Overview: 04/09/19 1 hr GCT 149. 3 hr GTT ordered. 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 [...] Overview: Added automatically from request for surgery [id number] Encounter for supervision of normal first in [...] of this encounter (statuses as of 01/18/2022) [facility] of Past illness Narrative* Problem Noted Date Resolved Date History of gestational diabetes 06/22/2021 12/21/2021 Polyhydramnios in third trimester 04/24/2019 07/18/2019 Diet controlled gestational diabetes mellitus (GDM) in third trimester 04/16/2019 07/18/2019 Antepartum anemia 04/10/2019 07/18/2019 Overview: 05/21/19 Hgb 11.7 Eleanor Bryant APRN.[employer] 04/12/19 Hgb 10.2 Fe sulfate 325 mg daily on Mondays, Wednesdays and Fridays. Repeat CBC in one month. Eleanor Bryant APRN.[employer] Abnormal glucose in , antepartum 201807/18/2019 Overview: 04/09/19 1 hr GCT 149. 3 hr GTT ordered. 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 [...] Overview: Added automatically from request for surgery [id number] Encounter for supervision of normal first in [...] of this encounter (statuses as of 01/25/2022) [facility] of Past illness Narrative* Problem Noted Date Resolved Date History of gestational diabetes 06/22/2021 12/21/2021 Polyhydramnios in third trimester 04/24/2019 07/18/2019 Diet controlled gestational diabetes mellitus (GDM) in third trimester 04/16/2019 07/18/2019 Antepartum anemia 04/10/2019 07/18/2019 Overview: 05/21/19 Hgb 11.7 Eleanor Bryant APRN.[employer] 04/12/19 Hgb 10.2 Fe sulfate 325 mg [...] Overview: Added automatically from request for surgery [id number] Encounter for supervision of normal first in [...] of this encounter (statuses as of 02/18/2022) [facility] of Past illness Narrative* Problem [...] 149. 3 hr GTT ordered. 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 [...] Overview: Added automatically from request for surgery [id number] Encounter for supervision of normal first in [...] of this encounter (statuses as of 03/02/2022) [facility] of Past illness Narrative* Problem Noted Date Resolved Date History of gestational diabetes 06/22/2021 12/21/2021 Polyhydramnios in third trimester 04/24/2019 07/18/2019 Diet controlled gestational diabetes mellitus (GDM) in third trimester 04/16/2019 07/18/2019 Antepartum anemia 04/10/2019 07/18/2019 Overview: 05/21/19 Hgb 11.7 Eleanor Bryant APRN.[employer] 04/12/19 Hgb 10.2 Fe sulfate 325 mg [...] Overview: Added automatically from request for surgery [id number] Encounter for supervision of normal first in [...] of this encounter (statuses as of 03/11/2022) [facility] History of Past illness Narrative* Problem [...] Repeat CBC in one month. Eleanor Bryant APRN.[employer] Abnormal glucose in , antepartum 201807/18/2019 Overview: 04/09/19 1 hr GCT 149. 3 hr GTT ordered. 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 [...] Overview: Added automatically from request for surgery [id number] Encounter for supervision of normal first in [...] of this encounter (statuses as of 03/11/2022) [facility] of Past illness Narrative* Problem Noted Date Resolved Date History of gestational diabetes 06/22/2021 12/21/2021 Polyhydramnios in third trimester 04/24/2019 07/18/2019 Diet controlled gestational diabetes mellitus (GDM) in third trimester 04/16/2019 07/18/2019 Antepartum anemia 04/10/2019 07/18/2019 Overview: 05/21/19 Hgb 11.7 Eleanor Bryant APRN.[employer] 04/12/19 Hgb 10.2 Fe sulfate 325 mg daily on Mondays, Wednesdays and Fridays. Repeat CBC in one month. Eleanor Bryant APRN.[employer] Abnormal glucose in , antepartum 201807/18/2019 Overview: 04/09/19 1 hr GCT 149. 3 hr GTT ordered. 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 [...] Overview: Added automatically from request for surgery [id number] Encounter for supervision of normal first in [...] of this encounter (statuses as of 04/12/2022) [facility] History of Past illness Narrative* Problem [...] Overview: Added automatically from request for surgery [id number] Encounter for supervision of normal first in [...] of this encounter (statuses as of 05/09/2022) [facility] History of Past illness Narrative* Problem Noted Date Resolved Date History of gestational diabetes 06/22/2021 12/21/2021 Polyhydramnios in third trimester 04/24/2019 07/18/2019 Diet controlled gestational diabetes mellitus (GDM) in third trimester 04/16/2019 07/18/2019 Antepartum anemia 04/10/2019 07/18/2019 Overview: 05/21/19 Hgb 11.7 Eleanor Bryant APRN.[employer] 04/12/19 Hgb 10.2 Fe sulfate 325 mg daily on Mondays, Wednesdays and Fridays. Repeat CBC in one month. Eleanor Bryant APRN.ANGELINA Abnormal glucose in , antepartum 201807/18/2019 Overview: 04/09/19 1 hr GCT 149. 3 hr GTT ordered. 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 [...] Overview: Added automatically from request for surgery [id number] Encounter for supervision of normal first in [...] of this encounter (statuses as of 05/12/2022) [facility] History of Past illness Narrative* Problem Noted Date Resolved Date History of gestational diabetes 06/22/2021 12/21/2021 Polyhydramnios in third trimester 04/24/2019 07/18/2019 Diet controlled gestational diabetes mellitus (GDM) in third trimester 04/16/2019 07/18/2019 Antepartum anemia 04/10/2019 07/18/2019 Overview: 05/21/19 Hgb 11.7 Eleanor Bryant APRN.[employer] 04/12/19 Hgb 10.2 Fe sulfate 325 mg daily on Mondays, Wednesdays and Fridays. Repeat CBC in one month. Eleanor Bryant APRN.[employer] Abnormal glucose in , antepartum 201807/18/2019 Overview: 04/09/19 1 hr GCT 149. 3 hr GTT ordered. 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 [...] Overview: Added automatically from request for surgery [id number] Encounter for supervision of normal first in [...] of this encounter (statuses as of 05/26/2022) [facility] History of Past illness Narrative* Problem Noted Date Resolved Date History of gestational diabetes 06/22/2021 12/21/2021 Polyhydramnios in third trimester 04/24/2019 07/18/2019 Diet controlled gestational diabetes mellitus (GDM) in third trimester 04/16/2019 07/18/2019 Antepartum anemia 04/10/2019 07/18/2019 Overview: 05/21/19 Hgb 11.7 Eleanor Bryant APRN.[employer] 04/12/19 Hgb 10.2 Fe sulfate 325 mg daily on Mondays, Wednesdays and Fridays. Repeat CBC in one month. Eleanor Bryant APRN.[employer] Abnormal glucose in , antepartum 201807/18/2019 Overview: 04/09/19 1 hr GCT 149. 3 hr GTT ordered. 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 [...] Overview: Added automatically from request for surgery [id number] Encounter for supervision of normal first in [...] of this encounter (statuses as of 06/02/2022) [facility] History of Past illness Narrative* Problem Noted Date Resolved Date History of gestational diabetes 06/22/2021 12/21/2021 Polyhydramnios in third trimester 04/24/2019 07/18/2019 Diet controlled gestational diabetes mellitus (GDM) in third trimester 04/16/2019 07/18/2019 Antepartum anemia 04/10/2019 07/18/2019 Overview: 05/21/19 Hgb 11.7 Eleanor Bryant APRN.[employer] 04/12/19 Hgb 10.2 Fe sulfate 325 mg daily on Mondays, Wednesdays and Fridays. Repeat CBC in one month. Elaenor Bryant APRN.[employer] Abnormal glucose in , antepartum 201807/18/2019 Overview: 04/09/19 1 hr GCT 149. 3 hr GTT ordered. 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 [...] Overview: Added automatically from request for surgery [id number] Encounter for supervision of normal first in [...] of this encounter (statuses as of 06/02/2022) [facility] History of Past illness Narrative* Problem Noted Date Resolved Date History of gestational diabetes 06/22/2021 12/21/2021 Polyhydramnios in third trimester 04/24/2019 07/18/2019 Diet controlled gestational diabetes mellitus (GDM) in third trimester 04/16/2019 07/18/2019 Antepartum anemia 04/10/2019 07/18/2019 Overview: 05/21/19 Hgb 11.7 Eleanor Bryant APRN.[employer] 04/12/19 Hgb 10.2 Fe sulfate 325 mg daily on Mondays, Wednesdays and Fridays. Repeat CBC in one month. Eleanor Bryant APRN.[employer] Abnormal glucose in , antepartum 201807/18/2019 Overview: 04/09/19 1 hr GCT 149. 3 hr GTT ordered. 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 [...] need to discuss CF screening - Bertram Quitnana MD Female infertility 08/01/2018 11/13/2018 Overview: Added automatically from request for surgery [id number] Encounter for supervision of normal first in [...] of this encounter (statuses as of 06/10/2022) [facility] History of Past illness Narrative* Problem Noted Date Resolved Date History of gestational diabetes 06/22/2021 12/21/2021 Polyhydramnios in third trimester 04/24/2019 07/18/2019 Diet controlled gestational diabetes mellitus (GDM) in third trimester 04/16/2019 07/18/2019 Antepartum anemia 04/10/2019 07/18/2019 Overview: 05/21/19 Hgb 11.7 Eleanor Bryant APRN.[employer] 04/12/19 Hgb 10.2 Fe sulfate 325 mg daily on Mondays, Wednesdays and Fridays. Repeat CBC in one month. Eleanor Bryant APRN.[employer] Abnormal glucose in , antepartum 201807/18/2019 Overview: 04/09/19 1 hr GCT 149. 3 hr GTT ordered. 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 [...] Overview: Added automatically from request for surgery [id number] Encounter for supervision of normal first in [...] of this encounter (statuses as of 06/10/2022) [facility] History of Past illness Narrative* Problem Noted Date Resolved Date History of gestational diabetes 06/22/2021 12/21/2021 Polyhydramnios in third trimester 04/24/2019 07/18/2019 Diet controlled gestational diabetes mellitus (GDM) in third trimester 04/16/2019 07/18/2019 Antepartum anemia 04/10/2019 07/18/2019 Overview: 05/21/19 Hgb 11.7 Eleanor Bryant APRN.[employer] 04/12/19 Hgb 10.2 Fe sulfate 325 mg daily on Mondays, Wednesdays and Fridays. Repeat CBC in one month. Eleanor Bryant APRN.[employer] Abnormal glucose in , antepartum 201807/18/2019 Overview: 04/09/19 1 hr GCT 149. 3 hr GTT ordered. 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 [...] Overview: Added automatically from request for surgery [id number] Encounter for supervision of normal first in [...] of this encounter (statuses as of 06/13/2022) [facility] History of Past illness Narrative* Problem Noted Date Resolved Date History of gestational diabetes 06/22/2021 12/21/2021 Polyhydramnios in third trimester 04/24/2019 07/18/2019 Diet controlled gestational diabetes mellitus (GDM) in third trimester 04/16/2019 07/18/2019 Antepartum anemia 04/10/2019 07/18/2019 Overview: 05/21/19 Hgb 11.7 Eleanor Bryant APRN.[employer] 04/12/19 Hgb 10.2 Fe sulfate 325 mg [...] Overview: Added automatically from request for surgery [id number] Encounter for supervision of normal first in [...] of this encounter (statuses as of 06/13/2022) [facility] History of Past illness Narrative* Problem Noted Date Resolved Date History of gestational diabetes 06/22/2021 12/21/2021 Polyhydramnios in third trimester 04/24/2019 07/18/2019 Diet controlled gestational diabetes mellitus (GDM) in third trimester 04/16/2019 07/18/2019 Antepartum anemia 04/10/2019 07/18/2019 Overview: 05/21/19 Hgb 11.7 Eleanor Bryant APRN.[employer] 04/12/19 Hgb 10.2 Fe sulfate 325 mg daily on Mondays, Wednesdays and Fridays. Repeat CBC in one month. Eleanor Bryant APRN.[employer] Abnormal glucose in , antepartum 201807/18/2019 Overview: 04/09/19 1 hr GCT 149. 3 hr GTT ordered. 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 3 hr GTT ordered. 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 [...] Overview: Added automatically from request for surgery [id number] Encounter for supervision of normal first in [...] of this encounter (statuses as of 07/06/2022) [facility] History of Past illness Narrative* Problem Noted Date Resolved Date History of gestational diabetes 06/22/2021 12/21/2021 Polyhydramnios in third trimester 04/24/2019 07/18/2019 Diet controlled gestational diabetes mellitus (GDM) in third trimester 04/16/2019 07/18/2019 Antepartum anemia 04/10/2019 07/18/2019 Overview: 05/21/19 Hgb 11.7 Eleanor Bryant APRN.[employer] 04/12/19 Hgb 10.2 Fe sulfate 325 mg daily on Mondays, Wednesdays and Fridays. Repeat CBC in one month. Eleanor Bryant APRN.[employer] Abnormal glucose in , antepartum 201807/18/2019 Overview: 04/09/19 1 hr GCT 149. 3 hr GTT ordered. 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 [...] Overview: Added automatically from request for surgery [id number] Encounter for supervision of normal first in [...] of this encounter (statuses as of 07/06/2022) [facility] History of Past illness Narrative* Problem Noted Date Resolved Date History of gestational diabetes 06/22/2021 12/21/2021 Polyhydramnios in third trimester 04/24/2019 07/18/2019 Diet controlled gestational diabetes mellitus (GDM) in third trimester 04/16/2019 07/18/2019 Antepartum anemia 04/10/2019 07/18/2019 Overview: 05/21/19 Hgb 11.7 Eleanor Bryant APRN.[employer] 04/12/19 Hgb 10.2 Fe sulfate 325 mg daily on Mondays, Wednesdays and Fridays. Repeat CBC in one month. Eleanor Bryant APRN.[employer] Abnormal glucose in , antepartum 201807/18/2019 Overview: 04/09/19 1 hr GCT 149. 3 hr GTT ordered. 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 [...] Overview: Added automatically from request for surgery [id number] Encounter for supervision of normal first in [...] of this encounter (statuses as of 07/11/2022) [facility] History of Past illness Narrative* Problem Noted Date Resolved Date History of gestational diabetes 06/22/2021 12/21/2021 Polyhydramnios in third trimester 04/24/2019 07/18/2019 Diet controlled gestational diabetes mellitus (GDM) in third trimester 04/16/2019 07/18/2019 Antepartum anemia 04/10/2019 07/18/2019 Overview: 05/21/19 Hgb 11.7 Eleanor Bryant APRN.[employer] 04/12/19 Hgb 10.2 Fe sulfate 325 mg daily on Mondays, Wednesdays and Fridays. Repeat CBC in one month. Eleanor Bryant APRN.ANGELINA Abnormal glucose in , antepartum 201807/18/2019 Overview: 04/09/19 1 hr GCT 149. 3 hr GTT ordered. 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 [...] Overview: Added automatically from request for surgery [id number] Encounter for supervision of normal first in [...] of this encounter (statuses as of 07/15/2022) [facility] History of Past illness Narrative* Problem [...] Overview: Added automatically from request for surgery [id number] Encounter for supervision of normal first in [...] of this encounter (statuses as of 07/22/2022) [facility] History of Past illness Narrative* Problem Noted Date Resolved Date History of gestational diabetes 06/22/2021 12/21/2021 Polyhydramnios in third trimester 04/24/2019 07/18/2019 Diet controlled gestational diabetes mellitus (GDM) in third trimester 04/16/2019 07/18/2019 Antepartum anemia 04/10/2019 07/18/2019 Overview: 05/21/19 Hgb 11.7 Eleanor Bryant APRN.[employer] 04/12/19 Hgb 10.2 Fe sulfate 325 mg daily on Mondays, Wednesdays and Fridays. Repeat CBC in one month. Eleanor Bryant APRN.[employer] Abnormal glucose in , antepartum 201807/18/2019 Overview: 04/09/19 1 hr GCT 149. 3 hr GTT ordered. 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 [...] Overview: Added automatically from request for surgery [id number] Encounter for supervision of normal first in [...] of this encounter (statuses as of 07/26/2022) [facility] History of Past illness Narrative* Problem Noted Date Resolved Date History of gestational diabetes 06/22/2021 12/21/2021 Polyhydramnios in third trimester 04/24/2019 07/18/2019 Diet controlled gestational diabetes mellitus (GDM) in third trimester 04/16/2019 07/18/2019 Antepartum anemia 04/10/2019 07/18/2019 Overview: 05/21/19 Hgb 11.7 Eleanor Bryant APRN.[employer] 04/12/19 Hgb 10.2 Fe sulfate 325 mg daily on Mondays, Wednesdays and Fridays. Repeat CBC in one month. Eleanor Bryant APRN.[employer] Abnormal glucose in , antepartum 201807/18/2019 Overview: 04/09/19 1 hr GCT 149. 3 hr GTT ordered. 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 [...] Overview: Added automatically from request for surgery [id number] Encounter for supervision of normal first in [...] of this encounter (statuses as of 07/28/2022) [facility] History of Past illness Narrative* Problem Noted Date Resolved Date History of gestational diabetes 06/22/2021 12/21/2021 Polyhydramnios in third trimester 04/24/2019 07/18/2019 Diet controlled gestational diabetes mellitus (GDM) in third trimester 04/16/2019 07/18/2019 Antepartum anemia 04/10/2019 07/18/2019 Overview: 05/21/19 Hgb 11.7 Eleanor Bryant APRN.[employer] 04/12/19 Hgb 10.2 Fe sulfate 325 mg daily on Mondays, Wednesdays and Fridays. Repeat CBC in one month. Eleanor Bryant APRN.[employer] Abnormal glucose in , antepartum 201807/18/2019 Overview: 04/09/19 1 hr GCT 149. 3 hr GTT ordered. 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 [...] Overview: Added automatically from request for surgery [id number] Encounter for supervision of normal first in [...] of this encounter (statuses as of 08/01/2022) [facility] History of Past illness Narrative* Problem Noted Date Resolved Date Polyhydramnios in third trimester 04/24/2019 07/18/2019 Diet controlled gestational diabetes mellitus (GDM) in third trimester 04/16/2019 07/18/2019 Antepartum anemia 04/10/2019 07/18/2019 Overview: 05/21/19 Hgb 11.7 Eleanor Bryant APRN.[employer] 04/12/19 Hgb 10.2 Fe sulfate 325 mg daily on Mondays, Wednesdays and Fridays. Repeat CBC in one month. Eleanor Bryant APRN.[employer] Abnormal glucose in , antepartum 201807/18/2019 Overview: 04/09/19 1 hr GCT 149. 3 hr GTT ordered. 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 [...] Overview: Added automatically from request for surgery [id number] Encounter for supervision of normal first in [...] of this encounter (statuses as of 11/29/2021) [facility] History of Past illness Narrative* Problem Noted Date Resolved Date Polyhydramnios in third trimester 04/24/2019 07/18/2019 Diet controlled gestational diabetes mellitus (GDM) in third trimester 04/16/2019 07/18/2019 Antepartum anemia 04/10/2019 07/18/2019 Overview: 05/21/19 Hgb 11.7 Eleanor Bryant APRN.[employer] 04/12/19 Hgb 10.2 Fe sulfate 325 mg daily on Mondays, Wednesdays and Fridays. Repeat CBC in one month. Eleanor Bryant APRN.[employer] Abnormal glucose in , antepartum 201807/18/2019 Overview: 04/09/19 1 hr GCT 149. 3 hr GTT ordered. 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 [...] Overview: Added automatically from request for surgery [id number] Encounter for supervision of normal first in [...] of this encounter (statuses as of 12/09/2021) [facility] Early stage of - Primary state, incidental [facility] Diagnosis Antepartum multigravida of advanced maternal age- Primary with history of infertility, antepartum History of gestational diabetes in prior , currently with other poor obstetric history with history of section, antepartum History of macrosomia in infant in prior , currently with other poor obstetric history [facility] Diagnosis Antepartum multigravida of advanced maternal age- Primary History of delivery, currently Previous delivery, unspecified as to episode of care or not applicable [facility] Diagnosis AMA (advanced maternal age) multigravida 35+, first trimester- Primary Encounter for screening for nuchal translucency [facility] Diagnosis Antepartum multigravida of advanced maternal age- Primary 12 weeks gestation of state, incidental [facility] Diagnosis 16 weeks gestation of - Primary state, incidental Antepartum multigravida of advanced maternal age History of delivery, currently Previous delivery, unspecified as to episode of care or not applicable [facility] Diagnosis 19 weeks gestation of - Primary state, incidental [facility] Diagnosis Encounter for routine screening for malformation using ultrasonics- Primary 19 weeks gestation of state, incidental Elderly multigravida with antepartum condition or complication 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 documented in this encounter [facility]* Diagnosis 24 weeks gestation of - Primary state, incidental [facility] Diagnosis Abnormal maternal glucose tolerance, antepartum- Primary Gestational diabetes mellitus, class A1 Abnormal maternal glucose tolerance, complicating , childbirth, or the puerperium, unspecified as to episode of care Antepartum anemia Anemia, antepartum [facility] Diagnosis 28 weeks gestation of - Primary state, incidental Gestational diabetes mellitus, class A1 Abnormal maternal glucose tolerance, complicating , childbirth, or the puerperium, unspecified as to episode of care Need for vaccination Need for prophylactic vaccination and inoculation against unspecified single disease [facility]* Diagnosis 30 weeks gestation of - Primary state, incidental Antepartum multigravida of advanced maternal age Gestational diabetes mellitus, class A1 Abnormal maternal glucose tolerance, complicating , childbirth, or the puerperium, unspecified as to episode of care GDM, class A2 Abnormal maternal glucose tolerance, complicating , childbirth, or the puerperium, unspecified as to episode of care documented in this encounter [facility] note* Diagnosis 30 weeks gestation of state, incidental GDM, class A2 Abnormal maternal glucose tolerance, complicating , childbirth, or the puerperium, unspecified as to episode of care [facility] Diagnosis Gestational diabetes mellitus, class A1- Primary Abnormal maternal glucose tolerance, complicating , childbirth, or the puerperium, unspecified as to episode of care Antepartum multigravida of advanced maternal age 32 weeks gestation of state, incidental [facility] Diagnosis 32 weeks gestation of - Primary state, incidental [facility] Diagnosis GDM, class A2- Primary Abnormal maternal glucose tolerance, complicating , childbirth, or the puerperium, unspecified as to episode of care Antepartum multigravida of advanced maternal age [facility] Diagnosis 34 weeks gestation of - Primary state, incidental Antepartum multigravida of advanced maternal age GDM, class A2 Abnormal maternal glucose tolerance, complicating , childbirth, or the puerperium, unspecified as to episode of care [facility] Diagnosis 36 weeks gestation of - Primary state, incidental AMA (advanced maternal age) multigravida 35+, third trimester Diet controlled gestational diabetes mellitus (GDM) in third trimester [facility]* Diagnosis GDM, class A2- Primary Abnormal maternal glucose tolerance, complicating , childbirth, or the puerperium, unspecified as to episode of care Antepartum multigravida of advanced maternal age 36 weeks gestation of state, incidental [facility] Diagnosis Antepartum multigravida of advanced maternal age- Primary 37 weeks gestation of state, incidental 30 weeks gestation of state, incidental GDM, class A2 Abnormal maternal glucose tolerance, complicating , childbirth, or the puerperium, unspecified as to episode of care [facility] Diagnosis Antepartum multigravida of advanced maternal age- Primary 38 weeks gestation of state, incidental [facility] Diagnosis [facility]counter for screening [facility] care and examination- Primary Routine follow-up Cervical cancer screening Screening for malignant neoplasm of the cervix documented in this encounter [facility] note* Diagnosis Encounter for screening mammogram for breast cancer documented in this encounter [facility] for referral (narrative)* Diagnostic Procedure Only (Routine) - Authorized Specialty Diagnoses / Procedures Referred By Contac t Referred To Contact [facility] Diagnoses Antepartum multigravida of advanced maternal age Procedures OBSTETRIC ULTRASOUND [facility] PREG UTERUS AFTER 1ST TRIMEST GESTATION Bertram Quintana MD [address] [place] [address] [id number] [place] [address] Referral ID Status Reason Start Date Expiration Date Visits Requested Visits Authorized [id number] Authorized Auto-Generat ed Referral 01/18/2022 01/18/2023 1 1 [facility] for referral (narrative)* Outpatient Procedure (Routine) - Pending Review Specialty Diagnoses / Procedures Referred By Contac t Referred To Contact [facility] Diagnoses Antepartum multigravida of advanced maternal age 30 weeks gestation of Procedures NON-STRESS TEST NON-STRESS TEST Bere Mccauley MD [address] [place] [address] [facility] [address] [place] [address] Referral ID Status Reason Start Date Expiration Date Visits Requested Visits Authorized [id number] Pending Review Auto-Generat ed Referral 05/25/2022 05/25/2023 6 1 * Diagnostic Procedure Only (Routine) - Pending Review Specialty Diagnoses / Procedures Referred By Contac t Referred To Contact [facility] Diagnoses Antepartum multigravida of advanced maternal age 30 weeks gestation of GDM, class A2 Procedures OBSTETRIC ULTRASOUND WHI US PREG UTERUS AFTER 1ST TRIMEST GESTATION Bere Mccauley MD [address] [place] [address] [facility] [address] [place] [address] Referral ID Status Reason Start Date Expiration Date Visits Requested Visits Authorized [id number] Pending Review Auto-Generat ed Referral 05/25/2022 05/25/2023 1 1 [facility] for referral (narrative)* Diagnostic Procedure Only (Routine) - Pending Review Specialty Diagnoses / Procedures Referred By Contac t Referred To Contact [facility] Diagnoses GDM, class A2 Antepartum multigravida of advanced maternal age Procedures OBSTETRIC ULTRASOUND WHI US PREG UTERUS AFTER 1ST TRIMEST GESTATION Angie Padilla APRN.CNM [address] [place] [address] [address] Referral ID Status Reason Start Date Expiration Date Visits Requested Visits Authorized [id number] Pending Review Auto-Generat ed Referral 2 06/13/2023 1 1 [facility] for referral (narrative)* Outpatient Procedure (Routine) - Pending Review Specialty Diagnoses / Procedures Referred By Contac t Referred To Contact [facility] Diagnoses 34 weeks gestation of Antepartum multigravida of advanced maternal age GDM, class A2 Procedures NON-STRESS TEST NON-STRESS TEST Angie Padilla APRN.CNM [address] [place] [address] [address] Referral ID Status Reason Start Date Expiration Date Visits Requested Visits Authorized [id number] Pending Review Auto-Generat ed Referral 2 06/23/2023 1 1 [facility] for referral (narrative)* Diagnostic Procedure Only (Routine) - Pending Review Specialty Diagnoses / Procedures Referred By Contac t Referred To Contact [facility] Diagnoses Encounter for screening mammogram for breast cancer Procedures YOSEF SCREENING SCREENING MAMMOGRAPHY BI 2-VIEW BREAST INC CAD Micky Frederick MD [address] [place] [address] [facility] [address] [place] [address] Referral ID Status Reason Start Date Expiration Date Visits Requested Visits Authorized [id number] Pending Review Auto-Generat ed Referral 07/28/2022 08/27/2023 1 1 [facility] for referral (narrative)* Diagnostic Procedure Only (Routine) - Pending Review Specialty Diagnoses / Procedures Referred By Cesar t Referred To Contact [facility] Diagnoses Encounter for screening mammogram for breast cancer Procedures YOSEF SCREENING SCREENING MAMMOGRAPHY BI 2-VIEW BREAST INC CAD Micky Frederick MD [address] [place] [address] [facility] [address] [place] [phone] Referral ID Status Reason Start Date Expiration Date Visits Requested Visits Authorized [id number] Pending Review Auto-Generat ed Referral 07/05/2023 08/03/2024 1 1 [facility] for visit Narrative* Diagnostic Procedure Only (Routine) - Closed Specialty Diagnoses / Procedures Referred By Cesar t Referred To Contact [facility] Diagnoses Antepartum multigravida of advanced maternal age Procedures OBSTETRIC ULTRASOUND WHI US PREG UTERUS AFTER 1ST TRIMEST GESTATION Bertram Quintana MD [address] [place] [address] [facility] [address] [place] [id number] Referral ID Status Reason Start Date Expiration Date V isits Requested Visits Authorized [id number] Closed Auto-Generate d Referral 01/18/2022 01/18/2023 1 1 [facility] Reason for Referral Specialty Diagnoses / Procedures Referred By Cesar t Referred To Contact Diagnoses Antepartum multigravida of advanced maternal age Procedures CONSULT TO MATERNAL MEDI OFFICE/OUTPATIENT [facility] MDM 60-74 MINUTES Bertram Quintana MD [address] [place] [address] Referral ID Status Reason Start Date Expiration Date Visits Requested Visits Authorized [id number] Authorized PCP Requested Referral Auto-Generate d Referral 12/21/2021 12/21/2022 1 1 Specialty Diagnoses / Procedures Referred By Contskip t Referred To Contact [facility] Diagnoses Antepartum multigravida of advanced maternal age Procedures NUCHAL TRANSLUCENCY WHI US NUCHAL TRANSLUCENCY 1ST GESTATION Bertram Quintana MD [address] [place] [address] [facility] [address] [place] [address] Referral ID Status Reason Start Date Expiration Date Visits Requested Visits Authorized [id number] Authorized Auto-Generat ed Referral 12/21/2021 12/21/2022 1 [...] or prosecute any alcohol or drug abuse patient.[facility] Hospital[facility] the event this information is protected by the Federal Confidentiality of Alcohol and Drug Abuse Patient Records regulations: The Federal rules restrict any use of the information to criminally investigate or prosecute any alcohol or drug abuse patient.[facility] HospitalIn the event this information is protected by the Federal Confidentiality of Alcohol and Drug Abuse Patient Records regulations: The Federal rules restrict any use of the information to criminally investigate or prosecute any alcohol or drug abuse patient.[facility] HospitalIn the event this information is protected by the Federal Confidentiality of Alcohol and Drug Abuse Patient Records regulations: The Federal rules restrict any use of the information to criminally investigate or prosecute any alcohol or drug abuse patient.[facility] HospitalIn the event this information is protected by the Federal Confidentiality of Alcohol and Drug Abuse Patient Records regulations: The Federal rules restrict any use of the information to criminally investigate or prosecute any alcohol or drug abuse patient.[facility] HospitalIn the event this information is protected by the Federal Confidentiality of Alcohol and Drug Abuse Patient Records regulations: The Federal rules restrict any use of the information to criminally investigate or prosecute any alcohol or drug abuse patient.[facility] HospitalIn the event this information is protected by the Federal Confidentiality of Alcohol and Drug Abuse Patient Records regulations: The Federal rules restrict any use of the information to criminally investigate or prosecute any alcohol or drug abuse patient.[facility] HospitalIn the event this information is protected by the Federal Confidentiality of Alcohol and Drug Abuse Patient Records regulations: The Federal rules restrict any use of the information to criminally investigate or prosecute any alcohol or drug abuse patient.[facility] HospitalIn the event this information is protected by the Federal Confidentiality of Alcohol and Drug Abuse Patient Records regulations: The Federal rules restrict any use of the information to criminally investigate or prosecute any alcohol or drug abuse patient.[facility] HospitalIn the event this information is protected by the Federal Confidentiality of Alcohol and Drug Abuse Patient Records regulations: The Federal rules restrict any use of the information to criminally investigate or prosecute any alcohol or drug abuse patient.[facility] HospitalIn the event this information is protected by the Federal Confidentiality of Alcohol and Drug Abuse Patient Records regulations: The Federal rules restrict any use of the information to criminally investigate or prosecute any alcohol or drug abuse patient.[facility] HospitalIn the event this information is protected by the Federal Confidentiality of Alcohol and Drug Abuse Patient Records regulations: The Federal rules restrict any use of the information to criminally investigate or prosecute any alcohol or drug abuse patient.[facility] HospitalIn the event this information is protected by the Federal Confidentiality of Alcohol and Drug Abuse Patient Records regulations: The Federal rules restrict any use of the information to criminally investigate or prosecute any alcohol or drug abuse patient.[facility] HospitalIn the event this information is protected by the Federal Confidentiality of Alcohol and Drug Abuse Patient Records regulations: The Federal rules restrict any use of the information to criminally investigate or prosecute any alcohol or drug abuse patient.[facility] HospitalIn the event this information is protected by the Federal Confidentiality of Alcohol and Drug Abuse Patient Records regulations: The Federal rules restrict any use of the information to criminally investigate or prosecute any alcohol or drug abuse patient.[facility] HospitalIn the event this information is protected by the Federal Confidentiality of Alcohol and Drug Abuse Patient Records regulations: The Federal rules restrict any use of the information to criminally investigate or prosecute any alcohol or drug abuse patient.[facility] HospitalIn the event this information is protected by the Federal Confidentiality of Alcohol and Drug Abuse Patient Records regulations: The Federal rules restrict any use of the information to criminally investigate or prosecute any alcohol or drug abuse patient.[facility] HospitalIn the event this information is protected by the Federal Confidentiality of Alcohol and Drug Abuse Patient Records regulations: The Federal rules restrict any use of the information to criminally investigate or prosecute any alcohol or drug abuse patient.[facility] HospitalIn the event this information is protected by the Federal Confidentiality of Alcohol and Drug Abuse Patient Records regulations: The Federal rules restrict any use of the information to criminally investigate or prosecute any alcohol or drug abuse patient.[facility] HospitalIn the event this information is protected by the Federal Confidentiality of Alcohol and Drug Abuse Patient Records regulations: The Federal rules restrict any use of the information to criminally investigate or prosecute any alcohol or drug abuse patient.[facility] HospitalIn the event this information is protected by the Federal Confidentiality of Alcohol and Drug Abuse Patient Records regulations: The Federal rules restrict any use of the information to criminally investigate or prosecute any alcohol or drug abuse patient.[facility] HospitalIn the event this information is protected by the Federal Confidentiality of Alcohol and Drug Abuse Patient Records regulations: The Federal rules restrict any use of the information to criminally investigate or prosecute any alcohol or drug abuse patient.[facility] HospitalIn the event this information is protected by the Federal Confidentiality of Alcohol and Drug Abuse Patient Records regulations: The Federal rules restrict any use of the information to criminally investigate or prosecute any alcohol or drug abuse patient.[facility] HospitalIn the event this information is protected by the Federal Confidentiality of Alcohol and Drug Abuse Patient Records regulations: The Federal rules restrict any use of the information to criminally investigate or prosecute any alcohol or drug abuse patient.[facility] HospitalIn the event this information is protected by the Federal Confidentiality of Alcohol and Drug Abuse Patient Records regulations: The Federal rules restrict any use of the information to criminally investigate or prosecute any alcohol or drug abuse patient.[facility] HospitalIn the event this information is protected by the Federal Confidentiality of Alcohol and Drug Abuse Patient Records regulations: The Federal rules restrict any use of the information to criminally investigate or prosecute any alcohol or drug abuse patient.[facility] HospitalIn the event this information is protected by the Federal Confidentiality of Alcohol and Drug Abuse Patient Records regulations: The Federal rules restrict any use of the information to criminally investigate or prosecute any alcohol or drug abuse patient.[facility] HospitalIn the event this information is protected by the Federal Confidentiality of Alcohol and Drug Abuse Patient Records regulations: The Federal rules restrict any use of the information to criminally investigate or prosecute any alcohol or drug abuse patient.[facility] HospitalIn the event this information is protected by the Federal Confidentiality of Alcohol and Drug Abuse Patient Records regulations: The Federal rules restrict any use of the information to criminally investigate or prosecute any alcohol or drug abuse patient.[facility] HospitalIn the event this information is protected by the Federal Confidentiality of Alcohol and Drug Abuse Patient Records regulations: The Federal rules restrict any use of the information to criminally investigate or prosecute any alcohol or drug abuse patient.[facility] HospitalIn the event this information is protected by the Federal Confidentiality of Alcohol and Drug Abuse Patient Records regulations: The Federal rules restrict any use of the information to criminally investigate or prosecute any alcohol or drug abuse patient.[facility] HospitalIn the event this information is protected by the Federal Confidentiality of Alcohol and Drug Abuse Patient Records regulations: The Federal rules restrict any use of the information to criminally investigate or prosecute any alcohol or drug abuse patient.[facility] HospitalIn the event this information is protected by the Federal Confidentiality of Alcohol and Drug Abuse Patient Records regulations: The Federal rules restrict any use of the information to criminally investigate or prosecute any alcohol or drug abuse patient.[facility] HospitalIn the event this information is protected by the Federal Confidentiality of Alcohol and Drug Abuse Patient Records regulations: The Federal rules restrict any use of the information to criminally investigate or prosecute any alcohol or drug abuse patient.[facility] HospitalIn the event this information is protected by the Federal Confidentiality of Alcohol and Drug Abuse Patient Records regulations: The Federal rules restrict any use of the information to criminally investigate or prosecute any alcohol or drug abuse patient.[facility] HospitalIn the event this information is protected by the Federal Confidentiality of Alcohol and Drug Abuse Patient Records regulations: The Federal rules restrict any use of the information to criminally investigate or prosecute any alcohol or drug abuse patient.[facility] HospitalIn the event this information is protected by the Federal Confidentiality of Alcohol and Drug Abuse Patient Records regulations: The Federal rules restrict any use of the information to criminally investigate or prosecute any alcohol or drug abuse patient.[facility] Reason for Visit (unrecogniz ed section and content) Specialty Diagnoses / Procedures Referred By Cesar huynh Referred To Contact [facility] Diagnoses OB Procedures OFFICE/OUTPATIENT ESTABLISHED LOW MDM 20-29 MIN EST WHI OB Kelli Arnett MD [address] [place] [address] Carmelita Parikh MD [address] [place] [address] Referral ID Status Reason Start Date Expiration Date Visits Re quested Visits Authorized [id number] Closed 07/15/2022 08/27/2022 2 2 Reason Onset Date Comments Care 07/06/2022 Specialty Diagnoses / Procedures [facility] Diagnoses ob Procedures [facility] OB 1ST EXAM Self Bertram Quintana MD [address] [place] [address] Referral ID Status Reason Start Date Expiration Date V isits Requested Visits Authorized [id number] Authorized 08/28/2021 08/27/2022 99 99 Reason Onset Date Comments Care 06/23/2022 Specialty Diagnoses / Procedures [facility] To Contact [facility] Diagnoses ob Procedures [facility] OB 1ST EXAM Self Bertram Quintana MD [address] [place] [address] Reason Onset Date Comments Care 06/10/2022 Reason Onset Date Comments Care 05/12/2022 Reason Onset Date Comments Care 01/18/2022 Reason Comments +UPT Reason Comments Care Reason Comments Initial OB Visit Reason Comments Outside Labs Results Reason Comments US Specialty Diagnoses / Procedures [facility] Referred To Contact [facility] Diagnoses Antepartum multigravida of advanced maternal age Procedures NUCHAL TRANSLUCENCY WHI US NUCHAL TRANSLUCENCY 1ST GESTATION Bertram Quintana MD [address] [place] [address] [facility] [address] [place] [address] Referral ID Status Reason Start Date Expiration Date V isits Requested Visits Authorized [id number] Closed Auto-Generate d Referral 12/21/2021 12/21/2022 1 1 Reason Comments Maternity 21 results Reason Onset Date Comments Care 02/17/2022 Reason Comments Results Reason Onset Date Comments Care 03/11/2022 Specialty Diagnoses / Procedures [facility] To Contact [facility] Diagnoses Supervision of elderly multigravida, unspecified trimester OB / anatomy ultrasound Procedures US PREG UTERUS AFTER 1ST TRIMEST GESTATION EST I OB Bertram Quintana MD [address] [place] [address] Angie Padilla APRN.CNM [address] [place] [address] Referral ID Status Reason Start Date Expiration Date Visits Re quested Visits Authorized [id number] Closed 08/28/2021 08/27/2022 1 1 Reason Onset Date Comments Care 04/12/2022 Specialty Diagnoses / Procedures Referred By Contac t Referred To Contact [facility] Diagnoses ob Procedures [facility] OB 1ST EXAM MD Manuel Gomez Karmon, MD [address] [place] [address] Reason Comments Medication Problem Reason Onset Date Comments Care 05/25/2022 Specialty Diagnoses / Procedures Referred By Contac t Referred To Contact Diagnoses Antepartum multigravida of advanced maternal age Procedures CONSULT TO MATERNAL MEDI OFFICE/OUTPATIENT NEW HIGH MDM 60-74 MINUTES Bertram Quintana MD [address] [place] [address] Referral ID Status Reason Start Date Expiration Date V isits Requested Visits Authorized [id number] Closed PCP Requested Referral Auto-Generated Referral 12/21/2021 12/21/2022 1 1 Specialty Diagnoses / Procedures Referred By Contac t Referred To Contact [facility] Diagnoses Antepartum multigravida of advanced maternal age 30 weeks gestation of GDM, class A2 Procedures OBSTETRIC ULTRASOUND WHI US PREG UTERUS AFTER 1ST TRIMEST GESTATION Bere Mccauley MD [address] [place] [address] [facility] [address] [place] [address] Referral ID Status Reason Start Date Expiration Date V isits Requested Visits Authorized [id number] Open Auto-Generate d Referral 05/25/2022 05/25/2023 1 1 Reason Comments Orders Reason Comments Weekly NST Specialty Diagnoses / Procedures Referred By Contac t Referred To Contact [facility] Diagnoses GDM, class A2 Antepartum multigravida of advanced maternal age Procedures OBSTETRIC ULTRASOUND WHI US PREG UTERUS AFTER 1ST TRIMEST GESTATION Angie Padilla APRN.CNM [address] [place] [address] [facility] [address] [place] [address] Referral ID Status Reason Start Date Expiration Date V isits Requested Visits Authorized [id number] Closed Auto-Generate d Referral 06/13/2022 06/13/2023 1 1 Reason Comments Patient Question Reason Onset Date Comments Care 07/15/2022 Referral ID Status Reason Start Date Expiration Date V isits Requested Visits Authorized [id number] Authorized 07/15/2022 08/27/2022 2 2 Reason Comments Ob Delivery Note Reason Comments FMLA Paperwork Specialty Diagnoses / Procedures Referred By Contac t Referred To Contact [facility] Diagnoses Follow-up exam 6Wk Post Procedures OFFICE/OUTPATIENT ESTABLISHED HIGH MDM 40-54 MIN POST Bertram Quintana MD [address] [place] [place] [address] Bertram Quintana MD [address] [place] [place] [address] Referral ID Status Reason Start Date Expiration Date Visits Re quested Visits Authorized [id number] Closed 08/24/2022 08/27/2023 1 1 Reason Comments Forms/letter Care Teams (unrecognized sec tion and content) Studio Operation Engineer Relationship Specialty Start Date End Date Micky Frederick MD [address] [place], [place] [id number] [phone] PCP - General Family Practice 06/22/21 Studio Operation Engineer Relationship Specialty Start Date End Date Micky Frederick MD [address] [place], [place] [id number] [phone] PCP - General Family Practice 06/22/21 Studio Operation Engineer Relationship Specialty Start Date End Date Micky Frederick MD [address] [place] [address] PCP - General Family Practice 06/22/21 Studio Operation Engineer Relationship Specialty Start Date End Date Micky Frederick MD [address] [place] [address] PCP - General Family Practice 06/22/21 Studio Operation Engineer Relationship Specialty Start Date End Date Micky Frederick MD [address] [facility] [place] [address] PCP - General Family Practice 06/22/21 Studio Operation Engineer Relationship Specialty Start Date End Date Micky Frederick MD [facility] [place] [address] PCP - General Family Practice 06/22/21 Studio Operation Engineer Relationship Specialty Start Date End Date Micky Frederick MD [address] [place] [address] [place] [address] PCP - General Family Practice 06/22/21 Studio Operation Engineer Relationship Specialty Start Date End Date Micky Frederick MD [address] [place] [address] PCP - General Family Practice 06/22/21 Studio Operation Engineer Relationship Specialty Start Date End Date Micky Frederick MD [facility] [place] [address] PCP - General Family Practice 06/22/21 Studio Operation Engineer Relationship Specialty Start Date End Date Micky Frederick MD [facility] [place] [address] PCP - General Family Medicine 06/22/21 Studio Operation Engineer Relationship Specialty Start Date End Date Micky Frederick MD [facility] [place] [address] PCP - General Family Medicine 06/22/21 Studio Operation Engineer Relationship Specialty Start Date End Date Micky Frederick MD [facility] [place] [address] PCP - General Family Medicine 06/22/21 Studio Operation Engineer Relationship Specialty Start Date End Date Micky Frederick MD [address] [place] [address] PCP - General Family Medicine 06/22/21 Studio Operation Engineer Relationship Specialty Start Date End Date Micky Frederick MD [address] [place] [address] PCP - General Family Medicine 06/22/21 Studio Operation Engineer Relationship Specialty Start Date End Date Micky Frederick MD [address] [place] [address] PCP - General Family Medicine 06/22/21 Studio Operation Engineer Relationship Specialty Start Date End Date Micky Frederick MD [facility] [place] [address] PCP - General Family Medicine 06/22/21 Studio Operation Engineer Relationship Specialty Start Date End Date Micky Frederick MD [facility] [place] [address] PCP - General Family Medicine 06/22/21 Studio Operation Engineer Relationship Specialty Start Date End Date Micky Frederick MD [facility] [place] [address] PCP - General Family Medicine 06/22/21 Studio Operation Engineer Relationship Specialty Start Date End Date Micky Frederick MD [facility] [place] [address] PCP - General Family Medicine 06/22/21 Studio Operation Engineer Relationship Specialty Start Date End Date Micky Frederick MD [facility] [place] [address] PCP - General Family Medicine 06/22/21 Studio Operation Engineer Relationship Specialty Start Date End Date Micky Frederick MD [facility] [place] [address] PCP - General Family Medicine 06/22/21 Studio Operation Engineer Relationship Specialty Start Date End Date Micky Frederick MD [address] [place] [address] PCP - General Family Medicine 06/22/21 Studio Operation Engineer Relationship Specialty Start Date End Date Micky Frederick MD [address] [place] [address] PCP - General Family [facility] 06/22/21 Studio Operation Engineer Relationship Specialty Start Date End Date Micky Frederick MD [address] [place] [address] PCP - [facility] 06/22/21 Studio Operation Engineer Relationship Specialty Start Date End Date Micky Frederick MD [address] [place] [address] PCP - [facility] 06/22/21 Studio Operation Engineer Relationship Specialty Start Date End Date Micky Frederick MD [address] [place] [address] PCP - General [facility] 06/22/21 INFORMATION SOURCE (unrecogn ized section and [...] BE BASED ON THE PRIMARY CLINICAL RECORDS. [facility]. provides no warranty or guarantee of the accuracy or completeness of information in this document.
--- OUTSIDE RECORDS SUMMARY | 2023-09-24 14:26 | XMS RPT_ITS | CCD ---
Author Name Unknown Address [address] [place] [address] Organization [facility] Care Team Providers Care Cable Cutter And Swager Name Role Phone Micky Frederick MD Primary [...] agent; Translations: [ADHESIVE] Drug Allergy 06-03-2021 Unknown [facility] Medications Completed/Discontinued Medications Medication Drug Class(es) [...] 72.12 kg Bertram Quintana MD Work Phone: [facility] 09-06-2022 09:00-0500 Diastolic blood pressure 70 mm[Hg] Bertram Quintana MD Work Phone: [facility] 09-06-2022 09:00-0500 Systolic blood pressure 98 mm[Hg] Bertram Quintana MD Work Phone: [facility] 07-22-2022 10:54-0500 Body weight 80.88 kg Bertram Quintana MD Work Phone: [facility] 07-22-2022 10:54-0500 Diastolic blood pressure 62 mm[Hg] Bertram Quintana MD Work Phone: [facility] 07-22-2022 10:54-0500 Heart rate 81 /min Bertram Quintana MD Work Phone: [facility] 07-22-2022 10:54-0500 SaO2% (BldA) [Mass fraction] 100 % Bertram Quintana MD Work Phone: [facility] 07-22-2022 10:54-0500 Systolic blood pressure 98 mm[Hg] Bertram Quintana MD Work Phone: [facility] 07-15-2022 09:04-0500 Body height 152.4 cm Bertram Quintana MD Work Phone: [facility] 07-15-2022 09:04-0500 Body weight 80.74 kg Bertram Quintana MD Work Phone: [facility] 07-15-2022 09:04-0500 Diastolic blood pressure 62 mm[Hg] Bertram Quintana MD Work Phone: [facility] 07-15-2022 09:04-0500 Systolic blood pressure 118 mm[Hg] Bertram Quintana MD Work Phone: [facility] 07-06-2022 08:17-0500 Body weight 78.93 kg Kelli Arnett MD Work Phone: [facility] 07-06-2022 08:17-0500 Diastolic blood pressure 72 mm[Hg] Kelli Arnett MD Work Phone: [facility] 07-06-2022 08:17-0500 Systolic blood pressure 114 mm[Hg] Kelli Arnett MD Work Phone: [facility] 06-23-2022 13:56-0400 Body weight 79.83 kg Angie Plotts TRACK ANNOUNCER.CNM Work Phone: [facility] 06-23-2022 13:56-0400 Diastolic blood pressure 88 mm[Hg] Angei Plotts TRACK ANNOUNCER.CNM Work Phone: [facility] 06-23-2022 13:56-0400 Systolic blood pressure 128 mm[Hg] Angie Plotts TRACK ANNOUNCER.CNM Work Phone: [facility] 06-10-2022 13:26-0400 Body weight 78.93 kg Angie Plotts TRACK ANNOUNCER.CNM Work Phone: [facility] 06-10-2022 13:26-0400 Diastolic blood pressure 66 mm[Hg] Angie Plotts TRACK ANNOUNCER.CNM Work Phone: [facility] 06-10-2022 13:26-0400 Systolic blood pressure 102 mm[Hg] Angie Plotts TRACK ANNOUNCER.CNM Work Phone: [facility] 05-25-2022 13:19-0400 Body weight 78.83 kg Bere Mccauley MD Work Phone: [facility] 05-25-2022 13:19-0400 Diastolic blood pressure 74 mm[Hg] Bere Mccauley MD Work Phone: [facility] 05-25-2022 13:19-0400 Systolic blood pressure 110 mm[Hg] Bere Mccauley MD Work Phone: [facility] 05-12-2022 08:39-0400 Body weight 77.66 kg Bere Mccauley MD Work Phone: [facility] 05-12-2022 08:39-0400 Diastolic blood pressure 62 mm[Hg] Bere Mccauley MD Work Phone: [facility] 05-12-2022 08:39-0400 Systolic blood pressure 100 mm[Hg] Bere Mccauley MD Work Phone: [facility] 04-12-2022 08:35-0400 Body weight 77.11 kg Kelli Arnett MD Work Phone: [facility] 04-12-2022 08:35-0400 Diastolic blood pressure 62 mm[Hg] Kelli Arnett MD Work Phone: [facility] 04-12-2022 08:35-0400 Systolic blood pressure 108 mm[Hg] Kelli Arnett MD Work Phone: [facility] 03-11-2022 14:50-0400 Body weight 74.39 kg Angie Padilla TRACK ANNOUNCER.CNM Work Phone: [facility] 03-11-2022 14:50-0400 Diastolic blood pressure 60 mm[Hg] Angie Plotts TRACK ANNOUNCER.CNM Work Phone: [facility] 03-11-2022 14:50-0400 Systolic blood pressure 110 mm[Hg] Angie Plotts TRACK ANNOUNCER.CNM Work Phone: [facility] 02-17-2022 16:35-0400 Body weight 73.48 kg Angie Padilla TRACK ANNOUNCER.CNM Work Phone: [facility] 02-17-2022 16:35-0400 Diastolic blood pressure 74 mm[Hg] Angie Padilla TRACK ANNOUNCER.CNM Work Phone: [facility] 02-17-2022 16:35-0400 Systolic blood pressure 120 mm[Hg] Angie Padilla TRACK ANNOUNCER.CNM Work Phone: [facility] 01-18-2022 15:08-0400 Body weight 73.03 kg Hansel Farr MD Work Phone: [facility] 01-18-2022 15:08-0400 Diastolic blood pressure 74 mm[Hg] Hansel Farr MD Work Phone: [facility] 01-18-2022 15:08-0400 Systolic blood pressure 120 mm[Hg] Hansel Farr MD Work Phone: [facility] 12-21-2021 10:03-0400 Body height 151 cm Bertram Quintana MD Work Phone: [facility] 12-21-2021 10:03-0400 Body weight 73.21 kg Bertram Quintana MD Work Phone: [facility] 12-21-2021 10:03-0400 Diastolic blood pressure 72 mm[Hg] Bertram Quintana MD Work Phone: [facility] 12-21-2021 10:03-0400 Systolic blood pressure 118 mm[Hg] Bertram Quintana MD Work Phone: [facility] Encounters Encounter Date Encounter Type Care Provider Facility Start: 07-05-2023 ambulatory Micky owens MD Work Phone: Internal [facility] [place] Start: 06-26-2023 ambulatory Bertram Bentley Work Phone: OB/Gynecology Procedures Date Procedure Procedure Detail Performing Clinician Start: 07-22-2022 URINE OB DIP B/O Bertram Quintana MD Work Phone: Start: 07-15-2022 URINE OB DIP B/O Bertram Quintana MD Work Phone: Start: 07-06-2022 URINE OB DIP B/O Mckenna Arnett MD Work Phone: Start: 07-06-2022 Us preg uterus after 1st trimest 08/28 gestation Angie Padilla TRACK ANNOUNCER.CNM Work Phone: Start: 06-23-2022 URINE OB DIP B/O Solrito Padilla TRACK ANNOUNCER.CNM Work Phone: Start: 06-10-2022 URINE OB DIP [...] 02-17-2022 URINE OB DIP B/O Flor Padilla TRACK ANNOUNCER.CNM Work Phone: Start: 01-18-2022 URINE OB DIP B/O Bertram Quintana MD Work Phone: Start: 01-18-2022 Us nuchal translucency gestation Bertram Quintana MD Work Phone: Start: 12-23-2021 CBCDIF (EXTERNAL) [facility] P [facility]vider Start: 12-23-2021 Hemoglobin A1c/Hemoglobin.total in Blood [facility] Provider H/O: section History of delivery, currently Bertram Quintana MD Work Phone: H/O: section History of delivery, currently Angie Padilla TRACK ANNOUNCER.CNM Work Phone: Plan of Treatment Date Care Activity Detail Author Start: 05-12-2032 Urine microalbumin profile [facility] Start: 04-09-2029 Urine microalbumin profile DTAP,TDAP,TD (3 - Td or Tdap) [facility] Start: 09-06-2027 HPV TESTING HPV TESTING [facility] Start: 09-06-2027 PAP TESTING PAP TESTING [facility] Start: 07-18-2024 HPV TESTING HPV TESTING [facility] Start: 07-18-2024 PAP TESTING PAP TESTING [facility] Start: 04-28-2023 Covid-19 Vaccine () Covid-19 Vaccine () [facility] Start: 04-28-2023 Influenza vaccination Influenza Vaccine (#1) [facility] Start: 08-28-2022 DEPRESSION ASSESSMENT DEPRESSION ASSESSMENT [facility] Start: 2022 Mammography [facility] Start: 06-13-2022 End: 06-13-2023 OBSTETRIC ULTRASOUND WHI OBSTETRIC ULTRASOUND I Anc Imaging Routine GDM, class A2 Antepartum multigravida of advanced maternal age Expected: 06/13/2022, Expires: 06/13/2023 [facility] Work Phone: Immunizations Immunization Date Immunization Notes Care Provider [facility] 05-27-2022 influenza virus vaccine, unspecified formulation Bertram Quintana MD Work Phone: [facility] 05-12-2022 tetanus toxoid, redu osman diphtheria toxoid, and acellular pertussis vaccine, adsorbed Bere Mccauley MD Work Phone: [facility] 04-09-2019 tetanus toxoid, redu osman diphtheria toxoid, and acellular pertussis vaccine, adsorbed Argenis Dyer ANCELMO.CNM Work Phone: [facility] 10-04-2016 tetanus toxoid, redu osman diphtheria toxoid, and acellular pertussis vaccine, adsorbed Argensi Dyer ANCELMO.CNM Work Phone: [facility] Work Phone: Payers Date Payer Category Payer Private Health Insurance [facility] [employer] things you bake [id number] 2022-Present [phone] [address] [place] [id number] PPO [id number] 2019 Unknown MMO MMO TPA [id number] 2019-Present [address] [place] [address] PPO [id number] 2019 Unknown MMO MMO TPA [id number] 2019-Present [address] [place] [address] PPO [id number] 2019 Unknown [id number] Social History Date Type Detail Facility Start: 05-12-2022 Tobacco smoking stat us AKIS Never smoked tobacco [facility] Start: 06-22-2021 End: 09-06-2022 Alcohol intake Current drinker of alcohol (finding) [facility] Start: 05-10-2016 History SDOH Alcohol Comment Rarely, not while [facility] Start: 1980 Sex Assigned At Not on file [facility] Start: 11-19-2021 End: 07-15-2022 Exposure to SARS-CoV-2 (event) Not sure [facility] Start: 12-09-2021 Education 17 [facility] Start: 11-07-2021 [facility] Start: 05-12-2022 Tobacco use and exposure Smoke less tobacco non-user [facility] Start: 09-06-2022 End: 09-10-2022 History of Social function [facility] Start: 09-06-2022 End: 09-10-2022 Tobacco use panel [facility] National Score (1-10 0), lower number is lower risk 53 [facility] Medical Equipment Procedure Code Equipment Code [...] Note Patient Outreach (IN TMMN) ZAINAB SANTIAGO ([id number]) 1980 F Date Time Provider Department 07/05/23 MICKY FREDERICK During your visit today, we recorded the following information about you: Allergies As of Date: 07/05/2023 Noted Allergy Reaction ADHESIVE 06/03/2021 16 - Unknown Date Reviewed: 09/06/2022 Reviewed by: Bertram Quintana MD - Fully Assessed Visit Diagnosis:Encounter for screening mammogram for breast cancer [Z12.31] Order(s):[facility] SCREEN[facility] [[id number]] Order #: [id number] FUTURE Prescriptions as of 07/10/2023 - Ferrous [...] Encounter Status:Closed by MARGOTH STARKEY on 07/10/23 [facility] 06-23-2023 Miscellaneous Notes Formattin g of this note might be different from the original. Form signed by provider and faxed. Lexie Richmond RN Noted & will sign Bertram Quintana MD Received a fax from patient needing her Healthy Living Form signed by JAMES for her employer at [employer]. Patient last seen 08/2022 and has her annual exam with JAMES on 09/07/23. Form to JAMES to sign. Danya Rueda RN documented in this encounter [facility] 10-26-2022 Note HNO ID: [id number] Author: Danya Rueda RN Service: ? Author Type: ? Type: Progress Notes Filed: 10/26/2022 2:47 PM Note Text: Received lab results from [facility] - Please review. Scan on 10/26/2022 1:53 PM by External Provider: Miscellaneous Lab [facility] 10-26-2022 History of Presen t illness Narrative Received lab results from [facility] - Please review. Scan on 10/26/2022 1:53 PM by External Provider: Miscellaneous Lab documented in this encounter [facility] 09-06-2022 Note HNO ID: [id number] Author: Bertram Quintana MD Service: ? Author [...] Apgar1: 8 Apgar5: 9 Living: Living Zainab Sanitago is a 42 year old year old here for visit. Delivery Summary: ROS/ Recovery: Feeding: Breast feeding problems: None Menses since delivery: none Menstrual pattern prior to : Regular periods [place] since delivery: Not resumed Depression: denies symptoms [...] PACKAGE UNSPECIFIED ORAL SURGERY PROCEDURE, BY REPORT [place] teeth extracted FAMILY HISTORY Problem Relation Age [...] external genitalia normal, normal Bartholin's glands, urethra, Pacheco's glands, no vulvar lesions, no cervical lesions, [...] H/o GDM - PP screening ordered at [facility] Bertram Quintana MD [facility] 09-06-2022 History of Presen t illness Narrative [...] Menstrual pattern prior to : Regular periods [place] since delivery: Not resumed Depression: denies symptoms [...] PACKAGE UNSPECIFIED ORAL SURGERY PROCEDURE, BY REPORT [place] teeth extracted FAMILY HISTORY Problem Relation Age [...] external genitalia normal, normal Bartholin's glands, urethra, Pacheco's glands, no vulvar lesions, no cervical lesions, [...] H/o GDM - PP screening ordered at [facility] Bertram Quintana MD documented in this encounter [facility] 08-09-2022 Miscellaneous Notes Formattin g of this note might be different from the original. FMLA paperwork completed, faxed to employer , scanned into EMR and filed in APPLICATIONS COORDINATOR suite. Bernarda Henderson LPN FMLA return to work forms completed and placed on providers desk for signature. Bernarda Henderson LPN documented in this encounter [facility] 08-02-2022 Note HNO ID: [id number] Author: Bertram Quintana MD Service: ? Author [...] Level: 1 - N/A Bertram Quintana MD [facility] 07-28-2022 Miscellaneous Notes Formattin g of this note might be different from the original. [facility] paperwork completed, faxed to employer, scanned into EMR and filed in APPLICATIONS COORDINATOR suite. Bernarda Henderson LPN [facility] paperwork completed and placed on providers desk for signature. Bernarda Henderson LPN Received [facility] paperwork. Pt had c/s today. Will reach out to patient via [employer] for dates of leave. Bernarda Henderson LPN documented in this encounter [facility] 07-28-2022 Note Patient Outreach (IN TMMN) ZAINAB SANTIAGO ([id number]) 1980 F Date Time Provider Department 07/28/22 MICKY FREDERICK During your visit today, we recorded the following information about you: Allergies As of Date: 07/28/2022 Noted Allergy Reaction ADHESIVE 06/03/2021 16 - Unknown Date Reviewed: 07/22/2022 Reviewed by: Bertram Quintana MD - Fully Assessed Visit Diagnosis:Encounter for screening mammogram for breast cancer [Z12.31] Order(s):[facility] SCREENING [[id number]] Order #: [id number] FUTURE Prescriptions as of 08/01/2022 - insulin [...] Anemia in [O99.019] 05/09/2022 Encounter Status:Closed by [facility] on 08/01/22 [facility] 07-26-2022 Note HNO ID: [id number] Author: Comfort Claros RN Service: ? Author Type: ? Type: Progress Notes Filed: 07/26/2022 3:25 PM Note Text: Patient delivered via by Dr. Quintana on 07/26/22 at [facility]. See OB history. Comfort Claros RN [facility] 07-26-2022 History of Presen t illness Narrative Patient delivered via by Dr. Quintana on 07/26/22 at [facility]. See OB history. Comfort Claros RN documented in this encounter [facility] 07-22-2022 Miscellaneous Notes Formattin g of this note might be different from the original. KJ - No VB/LOF/ctxs. Reports good FM. A&P: Pre-op for repeat today. Informed consent signed today. GDM - BS overall normal per patient. Continue NPH at bedtime. Reviewed labor & FM precautions Bertram Quintana MD documented in this encounter [facility] 07-22-2022 Instructions Christine Higgins Ma - 07/22/2022 10:49 AM EST SEQUENTIAL SCREENINGS The [facility] offers sequential screenings for women who [...] It will require an appointment with our geotechnician. This is not an ultrasound performed by [...] the above symptoms, contact our office at [phone] and ask to speak with a nurse. After hours, you can call doctors registry at [phone] OR call [facility] at [phone] and ask to have the doctor habitat conservation planner paged. If you consider this an emergency, dial 9-9-9 or go to your nearest emergency department. NEED HELP? Are you dealing with a violent or abusive relationship? Are you a victim of rape or sexual assult? Call [facility] 24 hour Crisis Hotline: 512.139.3532 or 246-964-5895. MANUAL Your Guide to a Healthy manual is now on-line. Visit [email or web address] [email or web address] to download your free copy documented in this encounter [facility] 07-15-2022 Miscellaneous Notes Formattin g of [...] Labs: LFT's & bile acids ordered at [facility] to exclude cholestasis. Suspect itching is viral related. GDM - BS normal, continue NPH at bedtime Anemia - encouraged Fe & Regular PNV use Labor precautions reviewed, Kick counts reviewed. MOD - repeat Bertram Quintana MD documented in this encounter [facility] 07-15-2022 Instructions Christine Higgins Ma - 07/15/2022 8:55 AM EST SEQUENTIAL SCREENINGS [facility] offers sequential screenings for women who [...] It will require an appointment with our geotechnician. This is not an ultrasound performed by [...] the above symptoms, contact our office at [phone] and ask to speak with a nurse. After hours, you can call [facility] at [phone] OR call [facility] at [phone] and ask to have the doctor habitat conservation planner paged. If you consider this an emergency, dial 9-- or go to your nearest emergency department. NEED HELP? Are you dealing with a violent or abusive relationship? Are you a victim of rape or sexual assult? Call [facility] ([place]) 24 hour Crisis Hotline: 686.789.4960 or 155-398-5940. MANUAL Your Guide to a Healthy manual is now on-line. Visit [email or web address] [email or web address] to download your free copy documented in this encounter [facility] 07-11-2022 Miscellaneous Notes Formattin g of this note might be different from the original. Spoke with charge nurse Cyndi on L&D. Cyndi said to have patient call and ask to speak with charge nurse instead of clinical secretary. Patient notified and will call today to schedule. Lexie Richmond RN I don't know. Usually sees KJ. I told her she didn't need one last week b/c had BPP but don't know why they won't schedule her. Fax new order is fine. Thanks. Kelli Arnett MD Pt calling and stated that she is having weekly NST at [facility], pt called this am and stated that she tried to call and schedule this for tomorrow and the L&D clinical secretary stated that we need to call to given permission to schedule this. Was an order already sent over? I printed off the order, refaxed it and then contacted L&D. Bernarda Henderson LPN documented in this encounter [facility] 07-06-2022 Miscellaneous Notes Formattin g of [...] Kelli Arnett M.D. documented in this encounter [facility] 07-06-2022 Instructions Charis Echavarria Nm - 07/06/2022 8:01 AM EST SEQUENTIAL SCREENINGS [facility] offers sequential screenings for women who [...] It will require an appointment with our geotechnician. This is not an ultrasound performed by [...] the above symptoms, contact our office at [phone] and ask to speak with a nurse. After hours, you can call doctors registry at [phone] OR call [facility] at [phone] and ask to have the doctor habitat conservation planner paged. If you consider this an emergency, dial 9- or go to your nearest emergency department. NEED HELP? Are you dealing with a violent or abusive relationship? Are you a victim of rape or sexual assult? Call [facility] 24 hour Crisis Hotline: 728.839.9472 or 012-005-3918. MANUAL Your Guide to a Healthy manual is now on-line. Visit [email or web address] [email or web address] to download your free copy documented in this encounter [facility] 06-27-2022 Miscellaneous Notes Formattin g of [...] schedule these herself because she was a [employer] employee. Even added on the fax cover sheet that patient was going to be calling to schedule weekly NSTs herself. Comfort Claros RN Patient 35w1d needs weekly NST's. Patient was told she could do them at [facility] because she works there. Patient called them and tried to set them up, but was told that our office needs to set them up. Patient last seen 06/23 and NST done on that day. Does order need to be faxed to L&D for NST's? Lexie Richmond RN documented in this encounter [facility] 06-23-2022 History of Presen t illness [...] Angie Padilla APRN.CNM documented in this encounter [facility] 06-23-2022 Miscellaneous Notes Formattin g of [...] in 1 week for NST (completing at [facility] when gets off work) and 2 weeks for follow up growth US and INA. Patient needs to be physician only patient due to GDM A2. Angie Padilla APRN.CNM documented in this encounter [facility] 06-23-2022 Instructions Aleah Lockwood Ma - 06/23/2022 1:49 PM EDT SEQUENTIAL SCREENINGS The [facility] offers sequential screenings for women who [...] It will require an appointment with our geotechnician. This is not an ultrasound performed by [...] the above symptoms, contact our office at [phone] and ask to speak with a nurse. After hours, you can call doctors registry at [phone] OR call [facility] at [phone] and ask to have the doctor habitat conservation planner paged. If you consider this an emergency, dial 04-28- or go to your nearest emergency department. NEED HELP? Are you dealing with a violent or abusive relationship? Are you a victim of rape or sexual assult? Call [facility] 24 hour Crisis Hotline: 279.826.1454 or 432-955-3452. MANUAL Your Guide to a Healthy manual is now on-line. Visit [email or web address] [email or web address] to download your free copy documented in this encounter [facility] 06-13-2022 Miscellaneous Notes Formattin g of this note might be different from the original. Orders signed. Angie Padilla APRN.CNM Please file growth u/s order so patient can schedule. Comfort Claros RN ----- Message from Bere Mccauley MD sent at 06/12/2022 5:44 PM EDT ----- Add to record Needs repeat growth US 4 weeks documented in this encounter [facility] 06-13-2022 Miscellaneous Notes Formattin g of this note might be different from the original. 33w1d 05/12 Office note states to repeat CBC at 32 weeks. [facility] lab order to CP to sign. Danya Rueda RN documented in this encounter [facility] 06-10-2022 Miscellaneous Notes Formattin g of [...] Angie Padilla APRN.CNM documented in this encounter [facility] 06-10-2022 Instructions Aleah Lockwood Ma - 06/10/2022 1:03 PM EDT SEQUENTIAL SCREENINGS The [facility] offers sequential screenings for women who [...] It will require an appointment with our geotechnician. This is not an ultrasound performed by [...] the above symptoms, contact our office at [phone] and ask to speak with a nurse. After hours, you can call doctors registry at [phone] OR call [facility] at [phone] and ask to have the doctor habitat conservation planner paged. If you consider this an emergency, dial 9--1 or go to your nearest emergency department. NEED HELP? Are you dealing with a violent or abusive relationship? Are you a victim of rape or sexual assult? Call [facility] ([place]) 24 hour Crisis Hotline: 198.222.3407 or 406-493-0063. MANUAL Your Guide to a Healthy manual is now on-line. Visit [email or web address] [email or web address] to download your free copy documented in this encounter [facility] 06-02-2022 Miscellaneous Notes Formattin g of this note might be different from the original. Patient notified To increase bedtime NPH by 4 units for a total of 12 units at bedtime. Med list udated Typically taken right before going to bed or 8 hours prior to when she wakes up documented in this encounter [facility] 05-26-2022 Miscellaneous Notes Formattin g of this note might be different from the original. Orders signed. Angie Padilla APRN.CNM 30w4d Patient needing insulin needles sent to [facility] retail pharmacy. RX for insulin was sent yesterday without needles. Thank you. Requested Prescriptions Pending Prescriptions Disp Refills insulin needles, DISPOSABLE, 31 gauge x 5/16 30 Each 3 Si Each daily at bedtime. Danya Rueda RN documented in this encounter [facility] 05-25-2022 Miscellaneous Notes Formattin g of this note might be different from the original. SW- Pt doing well. No ctx, vb, lof. Good FM. GDM: BG log reviewed and starting NPH 8 units at bedtime. Growth US and NST's ordered. Scheduled to get flu shot with work. RTO 2 wks. Bere Mccauley DO documented in this encounter [facility] 05-25-2022 Instructions Dori Celeste MA - 05/25/2022 1:13 PM EDT SEQUENTIAL SCREENINGS The [facility] offers sequential screenings for women who [...] It will require an appointment with our geotechnician. This is not an ultrasound performed by [...] the above symptoms, contact our office at [phone] and ask to speak with a nurse. After hours, you can call doctors registry at [phone] OR call [facility] at [phone] and ask to have the doctor habitat conservation planner paged. If you consider this an emergency, dial 9--1 or go to your nearest emergency department. NEED HELP? Are you dealing with a violent or abusive relationship? Are you a victim of rape or sexual assult? Call [facility] ([place]) 24 hour Crisis Hotline: 960.857.2553 or 322-291-2586. MANUAL Your Guide to a Healthy manual is now on-line. Visit [email or web address] [email or web address] to download your free copy documented in this encounter [facility] 05-12-2022 Miscellaneous Notes Formattin g of [...] Bere Mccauley DO documented in this encounter [facility] 05-12-2022 History of Presen t illness [...] severely ill: Yes Patient denies history of Guillain-Newberry Syndrome (a severe paralytic illness): Yes Tdap Adacel injection was given without incident. See immunizations for details of immunizations administered today. VIS sheet provided: Yes Provider Bere Mccauley DO was present in office at time of injection. Dori Celeste MA documented in this encounter [facility] 05-12-2022 Instructions Dori Celeste MA - 05/12/2022 8:32 AM EDT SEQUENTIAL SCREENINGS The [facility] offers sequential screenings for women who [...] It will require an appointment with our geotechnician. This is not an ultrasound performed by [...] the above symptoms, contact our office at [phone] and ask to speak with a nurse. After hours, you can call doctors registry at [phone] OR call [facility] at [phone] and ask to have the doctor habitat conservation planner paged. If you consider this an emergency, dial 9-1-6 or go to your nearest emergency department. NEED HELP? Are you dealing with a violent or abusive relationship? Are you a victim of rape or sexual assult? Call [facility] ([place]) 24 hour Crisis Hotline: 105.391.1449 or 356-916-8372. MANUAL Your Guide to a Healthy manual is now on-line. 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 Then we will send to [facility] to file. Also let her know about anemia Needs iron for anemia. GCT is 193 which indicates GDM. Does not need a 3hr. 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 Bertram Quintana MD 28w1d Received CBC and 1 hour glucose results from [facility]. Please review. Results and order for 3 hour glucose test to [facility] to sign if appropriate. Patient does have h/o gestational diabetes with previous . Comfort Claros RN documented in this encounter [facility] documented as of this encounter (statuses as of 08/09/2022) [facility] History of Past illness Narrative* Problem [...] 07/18/2019 Overview: 05/21/19 Hgb 11.7 Eleanor Bryant APRN.FOREIGN LAW CONSULTANT 04/12/19 Hgb 10.2 Fe sulfate 325 mg daily on Mondays, Wednesdays and Fridays. Repeat CBC in one month. Eleanor Bryant APRN.FOREIGN LAW CONSULTANT Abnormal glucose in , antepartum 201807/18/2019 Overview: 04/09/19 1 hr GCT 149. 3 hr GTT ordered. 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 TKRN Supervision of other normal 11/13/2018 12/04/2018 Overview: 11/13/18 - need to discuss CF screening - Bertram Quintana MD Female infertility 08/01/2018 11/13/2018 Overview: Added automatically from request for surgery [id number] Encounter for supervision of normal first in [...] of this encounter (statuses as of 09/06/2022) [facility] History of Past illness Narrative* Problem [...] 07/18/2019 Overview: 05/21/19 Hgb 11.7 Eleanor Bryant APRN.FOREIGN LAW CONSULTANT 04/12/19 Hgb 10.2 Fe sulfate 325 mg [...] I have given patient contact information to [employer] to check on insurance coverage. TKRN Supervision of other normal 11/13/2018 12/04/2018 Overview: 11/13/18 - need to discuss CF screening - Bertram Quintana MD Female infertility 08/01/2018 11/13/2018 Overview: Added automatically from request for surgery [id number] Encounter for supervision of normal first in [...] of this encounter (statuses as of 10/26/2022) [facility] History of Past illness Narrative* Problem [...] 07/18/2019 Overview: 05/21/19 Hgb 11.7 Eleanor Bryant APRN.FOREIGN LAW CONSULTANT 04/12/19 Hgb 10.2 Fe sulfate 325 mg daily on Mondays, Wednesdays and Fridays. Repeat CBC in one month. Eleanor Bryant APRN.FOREIGN LAW CONSULTANT Abnormal glucose in , antepartum 04/10/2019 07/18/2019 Overview: 04/09/19 1 hr GCT 149. 3 hr GTT ordered. 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 TKRN Supervision of other normal 11/13/2018 12/04/2018 Overview: 11/13/18 - need to discuss CF screening - Bertram Quintana MD Female infertility 08/01/2018 9 Overview: Added automatically from request for surgery [id number] Encounter for supervision of normal first in [...] of this encounter (statuses as of 06/23/2023) [facility] History of Past illness Narrative* Problem [...] 07/18/2019 Overview: 05/21/19 Hgb 11.7 Eleanor Bryant APRN.FOREIGN LAW CONSULTANT 04/12/19 Hgb 10.2 Fe sulfate 325 mg daily on Mondays, Wednesdays and Fridays. Repeat CBC in one month. Eleanor Bryant APRN.FOREIGN LAW CONSULTANT Abnormal glucose in , antepartum 04/10/2019 07/18/2019 Overview: 04/09/19 1 hr GCT 149. 3 hr GTT ordered. 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 TKRN Supervision of other normal 11/13/2018 12/04/2018 Overview: 11/13/18 - need to discuss CF screening - Bertram Quintana MD Female infertility 08/01/2018 9 Overview: Added automatically from request for surgery [id number] Encounter for supervision of normal first in [...] of this encounter (statuses as of 06/26/2023) [facility] History of Past illness Narrative* Problem [...] 07/18/2019 Overview: 05/21/19 Hgb 11.7 Eleanor Bryant APRN.FOREIGN LAW CONSULTANT 04/12/19 Hgb 10.2 Fe sulfate 325 mg daily on Mondays, Wednesdays and Fridays. Repeat CBC in one month. Eleanor Bryant APRN.FOREIGN LAW CONSULTANT Abnormal glucose in , antepartum 04/10/2019 07/18/2019 Overview: 04/09/19 1 hr GCT 149. 3 hr GTT ordered. 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 TKRN Supervision of other normal 11/13/2018 12/04/2018 Overview: 11/13/18 - need to discuss CF screening - Bertram Quintana MD Female infertility 08/01/2018 9 Overview: Added automatically from request for surgery [id number] Encounter for supervision of normal first in [...] of this encounter (statuses as of 07/10/2023) [facility] Miscellaneous Notes* Quick Notes - Kelli Arnett MD - 04/12/2022 8:53 AM EDT RR- Doing well. No VB/LOF. Good FM. NO ctxs. Mild edema. Plans repeat c/s. F/u in 4 weeks or prn. 28 week lab slip given, will do at [facility]. Kelli Arnett MD [facility] Instructions* Patient Instructions* Charis Echavarria Nm - 04/12/2022 8:33 AM EDT SEQUENTIAL SCREENINGS The [facility] offers sequential screenings for women who [...] testing. It will require an appointment withour geotechnician. This is not an ultrasound performed by [...] the above symptoms, contact our office at [phone] and ask to speak with anurse. After hours, you can call doctors registry at [phone] OR call [facility] at [phone] ask to have the doctor habitat conservation planner paged. If you consider this an emergency, dial 9--1 or go to your nearest emergency department. NEED HELP? Are you dealing with a violent or abusive relationship? Are you a victim of rape or sexual assult? Call [facility] ([place]) 24 hour Crisis Hotline: 203.127.2487 or 033-216-0142. MANUAL Your Guide to a Healthy manual is now on-line. Visit [email or web address] to download your free copy [facility] History of Present illness Narrative* Dori Fitzgerald MD - 03/11/2022 5:20 PM EDT Patient here for routine anatomy scan. See ultrasound report for details. Dori Fitzgerald MD [facility] Miscellaneous Notes* Quick Notes - Angie [...] needed. Angie Padilla APRN.CNM documented in [facility] Instructions* Patient Instructions* Cande Downey MA - 03/11/2022 2:00 PM EDT SEQUENTIAL SCREENINGS The [facility] offers sequential screenings for women who [...] testing. It will require an appointment withour geotechnician. This is not an ultrasound performed by [...] the above symptoms, contact our office at [phone] and ask to speak with anurse. After hours, you can call doctors registry at [phone] OR call [facility] at [phone] ask to have the doctor habitat conservation planner paged. If you consider this an emergency, dial 9-9-3 or go to your nearest emergency department. NEED HELP? Are you dealing with a violent or abusive relationship? Are you a victim of rape or sexual assult? Call [facility] ([place]) 24 hour Crisis Hotline: 785.545.2341 or 904-075-9173. MANUAL Your Guide to a Healthy manual is now on-line. Visit [email or web address] to download your free copy [facility] Miscellaneous Notes* Telephone Encounter - Cande Bond [facility] - 03/02/2022 2:39 PM EDT Ms. [...] Asked her to call me back at [phone]. Plan on discussing her abnormal quad screen in relation to her normal NIPT. Cande Bond CGC documented in [facility]Mer[facility] Miscellaneous Notes* Quick Notes - Angie [...] complaints. Will have AFP lab drawn at [facility]. Size equal to dates. PTL/ Bleeding precautions reviewed. RTC in 4 weeks foranatomy US and INA. Angie Padilla APRN.CNM documented in this encounterMer[facility]06[facility]22 Instructions* Patient Instructions* Dori Celeste MA - 02/17/2022 4:31 PM EDT SEQUENTIAL SCREENINGS The [facility] offers sequential screenings for women who [...] testing. It will require an appointment withour geotechnician. This is not an ultrasound performed by [...] the above symptoms, contact our office at [phone] and ask to speak with anurse. After hours, you can call doctors registry at [phone] OR call [facility] at [phone] ask to have the doctor habitat conservation planner paged. If you consider this an emergency, dial 9-1-8 or go to your nearest emergency department. NEED HELP? Are you dealing with a violent or abusive relationship? Are you a victim of rape or sexual assult? Call [facility] ([place]) 24 hour Crisis Hotline: 544.129.3240 or 490-364-5110. MANUAL Your Guide to a Healthy manual is now on-line. Visit [email or web address] to download your free copy [facility] Miscellaneous Notes* Telephone Encounter - Klarissa [...] Provider. Klarissa Flower RN documented in this encounterMer[facility]05-[facility]22 Miscellaneous Notes* Quick Notes - Bertram Quintana MD - 01/18/2022 4:23 PM EDT KJ - No VB/LOF/ctxs. Denies concerns. A&P: NT with NIPT today Anatomy US ordered MOD - repeat Bertram Quintana MD documented in this encounterMer[facility]05[facility]22 Instructions* Patient Instructions* Christine Higgins Ma - 01/18/2022 3:56 PM EDT SEQUENTIAL SCREENINGS The [facility] offers sequential screenings for women who [...] testing. It will require an appointment withour geotechnician. This is not an ultrasound performed by [...] the above symptoms, contact our office at [phone] and ask to speak with anurse. After hours, you can call doctors registry at [phone] OR call [facility] at [phone] ask to have the doctor habitat conservation planner paged. If you consider this an emergency, dial 91-7 or go to your nearest emergency department. NEED HELP? Are you dealing with a violent or abusive relationship? Are you a victim of rape or sexual assult? Call [facility] ([place]) 24 hour Crisis Hotline: 308.602.6968 or 893-220-1411. MANUAL Your Guide to a Healthy manual is now on-line. Visit 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 Bertram Quintana MD documented in this encounterMer[facility]04-26-[facility]22 Instructions* Patient Instructions* Christine Higgins Ma - 12/21/2021 9:54 AM EDT Please select the following link to access the [facility] Your Guide to a Healthy . [email or web address] documented in this encounterMer[facility]04-14-2022 Miscellaneous Notes* Quick Notes - Melina [...] I have given patient contact information to [employer] to check on insurance coverage. Patient has a history of gestational diabetes with her last . Last hemoglobin A1c was done June 2021. Patient will plan on early scree rosailnda. Patient has a history of 2 C-sections. She desires a repeat . Patient has a history of macrosomia in prior . Patient declines tubal ligation.Melina Macdonald RN documented in this encounterMer[facility]04-14-2022 History of Present illness Narrative* Melina [...] Living: None, Comments: None documented in this encounterMer[facility]04-04-2022 Miscellaneous Notes* Telephone Encounter - Comfort [...] history. Danya Rueda RN documented in this encounterMer[facility]10-26-[facility]21 History of Past illness Narrative* Problem Noted Date Resolved Date History of gestational diabetes 06/22/2021 12/21/2021 Polyhydramnios in third trimester 04/24/2019 07/18/2019 Diet controlled gestational diabetes mellitus (GDM) in third trimester 04/16/2019 07/18/2019 Antepartum anemia 04/10/2019 07/18/2019 Overview: 05/21/19 Hgb 11.7 Eleanor Bryant APRN.FOREIGN LAW CONSULTANT 04/12/19 Hgb 10.2 Fe sulfate 325 mg daily on Mondays, Wednesdays and Fridays. Repeat CBC in one month. Eleanor Bryant APRN.FOREIGN LAW CONSULTANT Abnormal glucose in , antepartum 201807/18/2019 Overview: 04/09/19 1 hr GCT 149. 3 hr GTT ordered. 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 [...] Overview: Added automatically from request for surgery [id number] Encounter for supervision of normal first in [...] of this encounter (statuses as of 12/21/2021) [facility] History of Past illness Narrative* Problem Noted Date Resolved Date History of gestational diabetes 06/22/2021 12/21/2021 Polyhydramnios in third trimester 04/24/2019 07/18/2019 Diet controlled gestational diabetes mellitus (GDM) in third trimester 04/16/2019 07/18/2019 Antepartum anemia 04/10/2019 07/18/2019 Overview: 05/21/19 Hgb 11.7 Eleanor Bryant APRN.FOREIGN LAW CONSULTANT 04/12/19 Hgb 10.2 Fe sulfate 325 mg daily on Mondays, Wednesdays and Fridays. Repeat CBC in one month. Eleanor Bryant APRN.FOREIGN LAW CONSULTANT Abnormal glucose in , antepartum 201807/18/2019 Overview: 04/09/19 1 hr GCT 149. 3 hr GTT ordered. 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 [...] Overview: Added automatically from request for surgery [id number] Encounter for supervision of normal first in [...] of this encounter (statuses as of 12/23/2021) [facility] History of Past illness Narrative* Problem Noted Date Resolved Date History of gestational diabetes 06/22/2021 12/21/2021 Polyhydramnios in third trimester 04/24/2019 07/18/2019 Diet controlled gestational diabetes mellitus (GDM) in third trimester 04/16/2019 07/18/2019 Antepartum anemia 04/10/2019 07/18/2019 Overview: 05/21/19 Hgb 11.7 Eleanor Bryant APRN.FOREIGN LAW CONSULTANT 04/12/19 Hgb 10.2 Fe sulfate 325 mg daily on Mondays, Wednesdays and Fridays. Repeat CBC in one month. Eleanor Bryant APRN.FOREIGN LAW CONSULTANT Abnormal glucose in , antepartum 201807/18/2019 Overview: 04/09/19 1 hr GCT 149. 3 hr GTT ordered. 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 management of mother 03/29/2019 07/18/2019 Overview: 03/29/19 - baby A, repeat US scheduled - Bertram Quintana MD Previous section 11/13/20182018 Overview: 11/13/18 - plans for repeat section - Bertram Quintnaa MD Dichorionic diamniotic twin , antepartu m [...] Overview: Added automatically from request for surgery [id number] Encounter for supervision of normal first in [...] of this encounter (statuses as of 01/18/2022) [facility] History of Past illness Narrative* Problem Noted Date Resolved Date History of gestational diabetes 06/22/2021 12/21/2021 Polyhydramnios in third trimester 04/24/2019 07/18/2019 Diet controlled gestational diabetes mellitus (GDM) in third trimester 04/16/2019 07/18/2019 Antepartum anemia 04/10/2019 07/18/2019 Overview: 05/21/19 Hgb 11.7 Eleanor Bryant APRN.FOREIGN LAW CONSULTANT 04/12/19 Hgb 10.2 Fe sulfate 325 mg daily on Mondays, Wednesdays and Fridays. Repeat CBC in one month. Eleanor Bryant APRN.FOREIGN LAW CONSULTANT Abnormal glucose in , antepartum 201807/18/2019 Overview: 04/09/19 1 hr GCT 149. 3 hr GTT ordered. Eleanor Bryant APRN.FOREIGN LAW CONSULTANT Marginal insertion of umbili ivral cord affecting management of mother 03/29/2019 07/18/2019 [...] Overview: Added automatically from request for surgery [id number] Encounter for supervision of normal first in [...] of this encounter (statuses as of 01/18/2022) [facility] History of Past illness Narrative* Problem Noted Date Resolved Date History of gestational diabetes 06/22/2021 12/21/2021 Polyhydramnios in third trimester 04/24/2019 07/18/2019 Diet controlled gestational diabetes mellitus (GDM) in third trimester 04/16/2019 07/18/2019 Antepartum anemia 04/10/2019 07/18/2019 Overview: 05/21/19 Hgb 11.7 Eleaonr Bryant APRN.FOREIGN LAW CONSULTANT 04/12/19 Hgb 10.2 Fe sulfate 325 mg daily on Mondays, Wednesdays and Fridays. Repeat CBC in one month. Eleanor Bryant APRN.FOREIGN LAW CONSULTANT Abnormal glucose in , antepartum 201807/18/2019 Overview: 04/09/19 1 hr GCT 149. 3 hr GTT ordered. 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 [...] Overview: Added automatically from request for surgery [id number] Encounter for supervision of normal first in [...] of this encounter (statuses as of 01/25/2022) [facility] History of Past illness Narrative* Problem Noted Date Resolved Date History of gestational diabetes 06/22/2021 12/21/2021 Polyhydramnios in third trimester 04/24/2019 07/18/2019 Diet controlled gestational diabetes mellitus (GDM) in third trimester 04/16/2019 07/18/2019 Antepartum anemia 04/10/2019 07/18/2019 Overview: 05/21/19 Hgb 11.7 Eleanor Bryant APRN.FOREIGN LAW CONSULTANT 04/12/19 Hgb 10.2 Fe sulfate 325 mg [...] Overview: Added automatically from request for surgery [id number] Encounter for supervision of normal first in [...] of this encounter (statuses as of 02/18/2022) [facility] History of Past illness Narrative* Problem [...] 149. 3 hr GTT ordered. 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 [...] Overview: Added automatically from request for surgery [id number] Encounter for supervision of normal first in [...] of this encounter (statuses as of 03/02/2022) [facility] of Past illness Narrative* Problem Noted Date Resolved Date History of gestational diabetes 06/22/2021 12/21/2021 Polyhydramnios in third trimester 04/24/2019 07/18/2019 Diet controlled gestational diabetes mellitus (GDM) in third trimester 04/16/2019 07/18/2019 Antepartum anemia 04/10/2019 07/18/2019 Overview: 05/21/19 Hgb 11.7 Eleanor Bryant APRN.FOREIGN LAW CONSULTANT 04/12/19 Hgb 10.2 Fe sulfate 325 mg [...] Overview: Added automatically from request for surgery [id number] Encounter for supervision of normal first in [...] of this encounter (statuses as of 03/11/2022) [facility] History of Past illness Narrative* Problem [...] Repeat CBC in one month. Eleanor Bryant APRN.FOREIGN LAW CONSULTANT Abnormal glucose in , antepartum 201807/18/2019 Overview: 04/09/19 1 hr GCT 149. 3 hr GTT ordered. 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 [...] Overview: Added automatically from request for surgery [id number] Encounter for supervision of normal first in [...] of this encounter (statuses as of 03/11/2022) [facility]10-[facility]21 History of Past illness Narrative* Problem Noted Date Resolved Date History of gestational diabetes 06/22/2021 12/21/2021 Polyhydramnios in third trimester 04/24/2019 07/18/2019 Diet controlled gestational diabetes mellitus (GDM) in third trimester 04/16/2019 07/18/2019 Antepartum anemia 04/10/2019 07/18/2019 Overview: 05/21/19 Hgb 11.7 Eleanor Bryant APRN.FOREIGN LAW CONSULTANT 04/12/19 Hgb 10.2 Fe sulfate 325 mg daily on Mondays, Wednesdays and Fridays. Repeat CBC in one month. Eleanor Bryant APRN.FOREIGN LAW CONSULTANT Abnormal glucose in , antepartum 201807/18/2019 Overview: 04/09/19 1 hr GCT 149. 3 hr GTT ordered. 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 3 hr GTT ordered. 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 [...] Overview: Added automatically from request for surgery [id number] Encounter for supervision of normal first in [...] of this encounter (statuses as of 05/09/2022) [facility] History of Past illness Narrative* Problem Noted Date Resolved Date History of gestational diabetes 06/22/2021 12/21/2021 Polyhydramnios in third trimester 04/24/2019 07/18/2019 Diet controlled gestational diabetes mellitus (GDM) in third trimester 04/16/2019 07/18/2019 Antepartum anemia 04/10/2019 07/18/2019 Overview: 05/21/19 Hgb 11.7 Eleanor Bryant APRN.FOREIGN LAW CONSULTANT 04/12/19 Hgb 10.2 Fe sulfate 325 mg daily on Mondays, Wednesdays and Fridays. Repeat CBC in one month. Eleanor Bryant APRN.ANGELINA Abnormal glucose in , antepartum 201807/18/2019 Overview: 04/09/19 1 hr GCT 149. 3 hr GTT ordered. 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 [...] Overview: Added automatically from request for surgery [id number] Encounter for supervision of normal first in [...] of this encounter (statuses as of 05/12/2022) [facility] History of Past illness Narrative* Problem Noted Date Resolved Date History of gestational diabetes 06/22/2021 12/21/2021 Polyhydramnios in third trimester 04/24/2019 07/18/2019 Diet controlled gestational diabetes mellitus (GDM) in third trimester 04/16/2019 07/18/2019 Antepartum anemia 04/10/2019 07/18/2019 Overview: 05/21/19 Hgb 11.7 Eleanor Bryant APRN.FOREIGN LAW CONSULTANT 04/12/19 Hgb 10.2 Fe sulfate 325 mg daily on Mondays, Wednesdays and Fridays. Repeat CBC in one month. Eleanor Bryant APRN.FOREIGN LAW CONSULTANT Abnormal glucose in , antepartum 201807/18/2019 Overview: 04/09/19 1 hr GCT 149. 3 hr GTT ordered. 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 [...] Overview: Added automatically from request for surgery [id number] Encounter for supervision of normal first in [...] of this encounter (statuses as of 05/26/2022) [facility] History of Past illness Narrative* Problem Noted Date Resolved Date History of gestational diabetes 06/22/2021 12/21/2021 Polyhydramnios in third trimester 04/24/2019 07/18/2019 Diet controlled gestational diabetes mellitus (GDM) in third trimester 04/16/2019 07/18/2019 Antepartum anemia 04/10/2019 07/18/2019 Overview: 05/21/19 Hgb 11.7 Eleanor Bryant APRN.FOREIGN LAW CONSULTANT 04/12/19 Hgb 10.2 Fe sulfate 325 mg daily on Mondays, Wednesdays and Fridays. Repeat CBC in one month. Eleanor Bryant APRN.FOREIGN LAW CONSULTANT Abnormal glucose in , antepartum 201807/18/2019 Overview: 04/09/19 1 hr GCT 149. 3 hr GTT ordered. 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 [...] Overview: Added automatically from request for surgery [id number] Encounter for supervision of normal first in [...] of this encounter (statuses as of 06/02/2022) [facility] History of Past illness Narrative* Problem Noted Date Resolved Date History of gestational diabetes 06/22/2021 12/21/2021 Polyhydramnios in third trimester 04/24/2019 07/18/2019 Diet controlled gestational diabetes mellitus (GDM) in third trimester 04/16/2019 07/18/2019 Antepartum anemia 04/10/2019 07/18/2019 Overview: 05/21/19 Hgb 11.7 Eleanor Bryant APRN.FOREIGN LAW CONSULTANT 04/12/19 Hgb 10.2 Fe sulfate 325 mg daily on Mondays, Wednesdays and Fridays. Repeat CBC in one month. Eleanor Bryant APRN.FOREIGN LAW CONSULTANT Abnormal glucose in , antepartum 201807/18/2019 Overview: 04/09/19 1 hr GCT 149. 3 hr GTT ordered. 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 [...] Overview: Added automatically from request for surgery [id number] Encounter for supervision of normal first in [...] of this encounter (statuses as of 06/02/2022) [facility] History of Past illness Narrative* Problem Noted Date Resolved Date History of gestational diabetes 06/22/2021 12/21/2021 Polyhydramnios in third trimester 04/24/2019 07/18/2019 Diet controlled gestational diabetes mellitus (GDM) in third trimester 04/16/2019 07/18/2019 Antepartum anemia 04/10/2019 07/18/2019 Overview: 05/21/19 Hgb 11.7 Eleanor Bryant APRN.FOREIGN LAW CONSULTANT 04/12/19 Hgb 10.2 Fe sulfate 325 mg daily on Mondays, Wednesdays and Fridays. Repeat CBC in one month. Eleanor Bryant APRN.FOREIGN LAW CONSULTANT Abnormal glucose in , antepartum 201807/18/2019 Overview: 04/09/19 1 hr GCT 149. 3 hr GTT ordered. 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 [...] Overview: Added automatically from request for surgery [id number] Encounter for supervision of normal first in [...] of this encounter (statuses as of 06/10/2022) [facility] History of Past illness Narrative* Problem Noted Date Resolved Date History of gestational diabetes 06/22/2021 12/21/2021 Polyhydramnios in third trimester 04/24/2019 07/18/2019 Diet controlled gestational diabetes mellitus (GDM) in third trimester 04/16/2019 07/18/2019 Antepartum anemia 04/10/2019 07/18/2019 Overview: 05/21/19 Hgb 11.7 Eleanor Bryant APRN.FOREIGN LAW CONSULTANT 04/12/19 Hgb 10.2 Fe sulfate 325 mg daily on Mondays, Wednesdays and Fridays. Repeat CBC in one month. Eleanor Bryant APRN.FOREIGN LAW CONSULTANT Abnormal glucose in , antepartum 201807/18/2019 Overview: 04/09/19 1 hr GCT 149. 3 hr GTT ordered. 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 [...] Overview: Added automatically from request for surgery [id number] Encounter for supervision of normal first in [...] of this encounter (statuses as of 06/10/2022) [facility] History of Past illness Narrative* Problem Noted Date Resolved Date History of gestational diabetes 06/22/2021 12/21/2021 Polyhydramnios in third trimester 04/24/2019 07/18/2019 Diet controlled gestational diabetes mellitus (GDM) in third trimester 04/16/2019 07/18/2019 Antepartum anemia 04/10/2019 07/18/2019 Overview: 05/21/19 Hgb 11.7 Eleanor Bryant APRN.FOREIGN LAW CONSULTANT 04/12/19 Hgb 10.2 Fe sulfate 325 mg daily on Mondays, Wednesdays and Fridays. Repeat CBC in one month. Eleanor Bryant APRN.FOREIGN LAW CONSULTANT Abnormal glucose in , antepartum 201807/18/2019 Overview: 04/09/19 1 hr GCT 149. 3 hr GTT ordered. 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 [...] Overview: Added automatically from request for surgery [id number] Encounter for supervision of normal first in [...] of this encounter (statuses as of 06/13/2022) [facility] History of Past illness Narrative* Problem Noted Date Resolved Date History of gestational diabetes 06/22/2021 12/21/2021 Polyhydramnios in third trimester 04/24/2019 07/18/2019 Diet controlled gestational diabetes mellitus (GDM) in third trimester 04/16/2019 07/18/2019 Antepartum anemia 04/10/2019 07/18/2019 Overview: 05/21/19 Hgb 11.7 Eleanor Bryant APRN.FOREIGN LAW CONSULTANT 04/12/19 Hgb 10.2 Fe sulfate 325 mg daily on Mondays, Wednesdays and Fridays. Repeat CBC in one month. Eleanor Bryant APRN.CNP Abnormal glucose in , antepartum 201807/18/2019 Overview: 04/09/19 1 hr GCT 149. 3 hr GTT ordered. Eleanor Bryatn APRN.ANGELINA Marginal insertion of umbili viral cord [...] Overview: Added automatically from request for surgery [id number] Encounter for supervision of normal first in [...] of this encounter (statuses as of 06/13/2022) [facility] History of Past illness Narrative* Problem Noted Date Resolved Date History of gestational diabetes 06/22/2021 12/21/2021 Polyhydramnios in third trimester 04/24/2019 07/18/2019 Diet controlled gestational diabetes mellitus (GDM) in third trimester 04/16/2019 07/18/2019 Antepartum anemia 04/10/2019 07/18/2019 Overview: 05/21/19 Hgb 11.7 Eleanor Bryant APRN.FOREIGN LAW CONSULTANT 04/12/19 Hgb 10.2 Fe sulfate 325 mg daily on Mondays, Wednesdays and Fridays. Repeat CBC in one month. Eleanor Bryant APRN.FOREIGN LAW CONSULTANT Abnormal glucose in , antepartum 201807/18/2019 Overview: 04/09/19 1 hr GCT 149. 3 hr GTT ordered. 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 3 hr GTT ordered. 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 [...] 11/13/18 - twin by IVF - Bertram Quintaan MD Supervision of other normal 11/13/2018 12/04/2018 Overview: 11/13/18 - need to discuss CF screening - Bertram Quintana MD Female infertility 08/01/2018 11/13/2018 Overview: Added automatically from request for surgery [id number] Encounter for supervision of normal first in [...] of this encounter (statuses as of 07/06/2022) [facility] History of Past illness Narrative* Problem Noted Date Resolved Date History of gestational diabetes 06/22/2021 12/21/2021 Polyhydramnios in third trimester 04/24/2019 07/18/2019 Diet controlled gestational diabetes mellitus (GDM) in third trimester 04/16/2019 07/18/2019 Antepartum anemia 04/10/2019 07/18/2019 Overview: 05/21/19 Hgb 11.7 Eleanor Bryant APRN.FOREIGN LAW CONSULTANT 04/12/19 Hgb 10.2 Fe sulfate 325 mg daily on Mondays, Wednesdays and Fridays. Repeat CBC in one month. Eleanor Bryant APRN.FOREIGN LAW CONSULTANT Abnormal glucose in , antepartum 201807/18/2019 Overview: 04/09/19 1 hr GCT 149. 3 hr GTT ordered. 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 Ugadle ordered nuchal ultrasound. TKRN Female infertility 09/24/2015 12/27/2016 Infertility counseling 02/17/2015 6 documented as of this encounter (statuses as of 07/06/2022) [facility] History of Past illness Narrative* Problem Noted Date Resolved Date History of gestational diabetes 06/22/2021 12/21/2021 Polyhydramnios in third trimester 04/24/2019 07/18/2019 Diet controlled gestational diabetes mellitus (GDM) in third trimester 04/16/2019 07/18/2019 Antepartum anemia 04/10/2019 07/18/2019 Overview: 05/21/19 Hgb 11.7 Eleanor Bryant APRN.FOREIGN LAW CONSULTANT 04/12/19 Hgb 10.2 Fe sulfate 325 mg daily on Mondays, Wednesdays and Fridays. Repeat CBC in one month. Eleanor Bryant APRN.FOREIGN LAW CONSULTANT Abnormal glucose in , antepartum 201807/18/2019 Overview: 04/09/19 1 hr GCT 149. 3 hr GTT ordered. 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 [...] Overview: Added automatically from request for surgery [id number] Encounter for supervision of normal first in [...] of this encounter (statuses as of 07/11/2022) [facility] History of Past illness Narrative* Problem Noted Date Resolved Date History of gestational diabetes 06/22/2021 12/21/2021 Polyhydramnios in third trimester 04/24/2019 07/18/2019 Diet controlled gestational diabetes mellitus (GDM) in third trimester 04/16/2019 07/18/2019 Antepartum anemia 04/10/2019 07/18/2019 Overview: 05/21/19 Hgb 11.7 Eleanor Bryant APRN.FOREIGN LAW CONSULTANT 04/12/19 Hgb 10.2 Fe sulfate 325 mg daily on Mondays, Wednesdays and Fridays. Repeat CBC in one month. Eleanor Bryant APRN.ANGELINA Abnormal glucose in , antepartum 201807/18/2019 Overview: 04/09/19 1 hr GCT 149. 3 hr GTT ordered. 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 Baby B AMRIELLA mildly increased. Follow up US in 3 weeks for growth and MARIELLA. Argenis Dyer APRN.CNM 11/13/18 - twin by IVF - Bertram Quintana MD Supervision of other normal 11/13/2018 12/04/2018 Overview: 11/13/18 - need to discuss CF screening - Bertram Quintana MD Female infertility 08/01/2018 11/13/2018 Overview: Added automatically from request for surgery [id number] Encounter for supervision of normal first in [...] of this encounter (statuses as of 07/15/2022) [facility] History of Past illness Narrative* Problem [...] Overview: Added automatically from request for surgery [id number] Encounter for supervision of normal first in [...] of this encounter (statuses as of 07/22/2022) [facility] History of Past illness Narrative* Problem Noted Date Resolved Date History of gestational diabetes 06/22/2021 12/21/2021 Polyhydramnios in third trimester 04/24/2019 07/18/2019 Diet controlled gestational diabetes mellitus (GDM) in third trimester 04/16/2019 07/18/2019 Antepartum anemia 04/10/2019 07/18/2019 Overview: 05/21/19 Hgb 11.7 Eleanor Bryant APRN.FOREIGN LAW CONSULTANT 04/12/19 Hgb 10.2 Fe sulfate 325 mg daily on Mondays, Wednesdays and Fridays. Repeat CBC in one month. Eleanor Bryant APRN.FOREIGN LAW CONSULTANT Abnormal glucose in , antepartum 201807/18/2019 Overview: 04/09/19 1 hr GCT 149. 3 hr GTT ordered. 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 [...] Overview: Added automatically from request for surgery [id number] Encounter for supervision of normal first in [...] of this encounter (statuses as of 07/26/2022) [facility] History of Past illness Narrative* Problem Noted Date Resolved Date History of gestational diabetes 06/22/2021 12/21/2021 Polyhydramnios in third trimester 04/24/2019 07/18/2019 Diet controlled gestational diabetes mellitus (GDM) in third trimester 04/16/2019 07/18/2019 Antepartum anemia 04/10/2019 07/18/2019 Overview: 05/21/19 Hgb 11.7 Eleanor Bryant APRN.FOREIGN LAW CONSULTANT 04/12/19 Hgb 10.2 Fe sulfate 325 mg daily on Mondays, Wednesdays and Fridays. Repeat CBC in one month. Eleanor Bryant APRN.FOREIGN LAW CONSULTANT Abnormal glucose in , antepartum 201807/18/2019 Overview: 04/09/19 1 hr GCT 149. 3 hr GTT ordered. 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 [...] Overview: Added automatically from request for surgery [id number] Encounter for supervision of normal first in [...] of this encounter (statuses as of 07/28/2022) [facility] History of Past illness Narrative* Problem Noted Date Resolved Date History of gestational diabetes 06/22/2021 12/21/2021 Polyhydramnios in third trimester 04/24/2019 07/18/2019 Diet controlled gestational diabetes mellitus (GDM) in third trimester 04/16/2019 07/18/2019 Antepartum anemia 04/10/2019 07/18/2019 Overview: 05/21/19 Hgb 11.7 Eleanor Bryant APRN.FOREIGN LAW CONSULTANT 04/12/19 Hgb 10.2 Fe sulfate 325 mg daily on Mondays, Wednesdays and Fridays. Repeat CBC in one month. Eleanor Bryant APRN.FOREIGN LAW CONSULTANT Abnormal glucose in , antepartum 201807/18/2019 Overview: 04/09/19 1 hr GCT 149. 3 hr GTT ordered. 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 [...] Overview: Added automatically from request for surgery [id number] Encounter for supervision of normal first in [...] of this encounter (statuses as of 08/01/2022) [facility] History of Past illness Narrative* Problem Noted Date Resolved Date Polyhydramnios in third trimester 04/24/2019 07/18/2019 Diet controlled gestational diabetes mellitus (GDM) in third trimester 04/16/2019 07/18/2019 Antepartum anemia 04/10/2019 07/18/2019 Overview: 05/21/19 Hgb 11.7 Eleanor Bryant APRN.FOREIGN LAW CONSULTANT 04/12/19 Hgb 10.2 Fe sulfate 325 mg daily on Mondays, Wednesdays and Fridays. Repeat CBC in one month. Eleanor Bryant APRN.FOREIGN LAW CONSULTANT Abnormal glucose in , antepartum 201807/18/2019 Overview: 04/09/19 1 hr GCT 149. 3 hr GTT ordered. 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 [...] Overview: Added automatically from request for surgery [id number] Encounter for supervision of normal first in [...] of this encounter (statuses as of 11/29/2021) [facility] History of Past illness Narrative* Problem Noted Date Resolved Date Polyhydramnios in third trimester 04/24/2019 07/18/2019 Diet controlled gestational diabetes mellitus (GDM) in third trimester 04/16/2019 07/18/2019 Antepartum anemia 04/10/2019 07/18/2019 Overview: 05/21/19 Hgb 11.7 Eleanor Bryant APRN.FOREIGN LAW CONSULTANT 04/12/19 Hgb 10.2 Fe sulfate 325 mg daily on Mondays, Wednesdays and Fridays. Repeat CBC in one month. Eleanor Bryant APRN.FOREIGN LAW CONSULTANT Abnormal glucose in , antepartum 201807/18/2019 Overview: 04/09/19 1 hr GCT 149. 3 hr GTT ordered. 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 [...] Overview: Added automatically from request for surgery [id number] Encounter for supervision of normal first in [...] of this encounter (statuses as of 12/09/2021) [facility] Early stage of - Primary state, incidental [facility] Diagnosis Antepartum multigravida of advanced maternal age- Primary with history of infertility, antepartum History of gestational diabetes in prior , currently with other poor obstetric history with history of section, antepartum History of macrosomia in infant in prior , currently with other poor obstetric history [facility] Diagnosis Antepartum multigravida of advanced maternal age- Primary History of delivery, currently Previous delivery, unspecified as to episode of care or not applicable [facility] Diagnosis AMA (advanced maternal age) multigravida 35+, first trimester- Primary Encounter for screening for nuchal translucency [facility] Diagnosis Antepartum multigravida of advanced maternal age- Primary 12 weeks gestation of state, incidental [facility] Diagnosis 16 weeks gestation of - Primary state, incidental Antepartum multigravida of advanced maternal age History of delivery, currently Previous delivery, unspecified as to episode of care or not applicable [facility] Diagnosis 19 weeks gestation of - Primary state, incidental [facility] Diagnosis Encounter for routine screening for malformation using ultrasonics- Primary 19 weeks gestation of state, incidental Elderly multigravida with antepartum condition or complication 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 documented in this encounter [facility] note* Diagnosis 24 weeks gestation of - Primary state, incidental [facility] Diagnosis Abnormal maternal glucose tolerance, antepartum- Primary Gestational diabetes mellitus, class A1 Abnormal maternal glucose tolerance, complicating , childbirth, or the puerperium, unspecified as to episode of care Antepartum anemia Anemia, antepartum [facility] Diagnosis 28 weeks gestation of - Primary state, incidental Gestational diabetes mellitus, class A1 Abnormal maternal glucose tolerance, complicating , childbirth, or the puerperium, unspecified as to episode of care Need for vaccination Need for prophylactic vaccination and inoculation against unspecified single disease [facility] Diagnosis 30 weeks gestation of - Primary state, incidental Antepartum multigravida of advanced maternal age Gestational diabetes mellitus, class A1 Abnormal maternal glucose tolerance, complicating , childbirth, or the puerperium, unspecified as to episode of care GDM, class A2 Abnormal maternal glucose tolerance, complicating , childbirth, or the puerperium, unspecified as to episode of care documented in this encounter [facility] note* Diagnosis 30 weeks gestation of state, incidental GDM, class A2 Abnormal maternal glucose tolerance, complicating , childbirth, or the puerperium, unspecified as to episode of care [facility] Diagnosis Gestational diabetes mellitus, class A1- Primary Abnormal maternal glucose tolerance, complicating , childbirth, or the puerperium, unspecified as to episode of care Antepartum multigravida of advanced maternal age 32 weeks gestation of state, incidental [facility] Diagnosis 32 weeks gestation of - Primary state, incidental [facility] Diagnosis GDM, class A2- Primary Abnormal maternal glucose tolerance, complicating , childbirth, or the puerperium, unspecified as to episode of care Antepartum multigravida of advanced maternal age [facility] Diagnosis 34 weeks gestation of - Primary state, incidental Antepartum multigravida of advanced maternal age GDM, class A2 Abnormal maternal glucose tolerance, complicating , childbirth, or the puerperium, unspecified as to episode of care [facility] Diagnosis 36 weeks gestation of - Primary state, incidental AMA (advanced maternal age) multigravida 35+, third trimester Diet controlled gestational diabetes mellitus (GDM) in third trimester [facility] Diagnosis GDM, class A2- Primary Abnormal maternal glucose tolerance, complicating , childbirth, or the puerperium, unspecified as to episode of care Antepartum multigravida of advanced maternal age 36 weeks gestation of state, incidental [facility] Diagnosis Antepartum multigravida of advanced maternal age- Primary 37 weeks gestation of state, incidental 30 weeks gestation of state, incidental GDM, class A2 Abnormal maternal glucose tolerance, complicating , childbirth, or the puerperium, unspecified as to episode of care [facility] Diagnosis Antepartum multigravida of advanced maternal age- Primary 38 weeks gestation of state, incidental [facility] Diagnosis Encounter for screening mammogram for breast cancer [facility] Diagnosis care and examination- Primary Routine follow-up Cervical cancer screening Screening for malignant neoplasm of the cervix documented in this encounter [facility]* Diagnosis Encounter for screening mammogram for breast cancer documented in this encounter [facility] for referral (narrative)* Diagnostic Procedure Only (Routine) - Authorized Specialty Diagnoses / Procedures Referred By Contac t Referred To Contact [facility] Diagnoses Antepartum multigravida of advanced maternal age Procedures OBSTETRIC ULTRASOUND WHI US PREG UTERUS AFTER 1ST TRIMEST GESTATION Bertram Quintana MD [address] [place] [address] [address] [place] [address] Referral ID Status Reason Start Date Expiration Date Visits Requested Visits Authorized [id number] Authorized Auto-Generat ed Referral 01/18/2022 01/18/2023 1 1 [facility] for referral (narrative)* Outpatient Procedure (Routine) - Pending Review Specialty Diagnoses / Procedures Referred By Contac t Referred To Contact [facility] Diagnoses Antepartum multigravida of advanced maternal age 30 weeks gestation of Procedures NON-STRESS TEST NON-STRESS TEST Bere Mccauley MD [address] [place] [address] [facility] [address] [place] [address] Referral ID Status Reason Start Date Expiration Date Visits Requested Visits Authorized [id number] Pending Review Auto-Generat ed Referral 05/25/2022 05/25/2023 6 1 * Diagnostic Procedure Only (Routine) - Pending Review Specialty Diagnoses / Procedures Referred By Contac t Referred To Contact [facility] Diagnoses Antepartum multigravida of advanced maternal age 30 weeks gestation of GDM, class A2 Procedures OBSTETRIC ULTRASOUND WHI US PREG UTERUS AFTER 1ST TRIMEST GESTATION Bere Mccauley MD [address] [facility] [address] [facility] [address] [place] [address] Referral ID Status Reason Start Date Expiration Date Visits Requested Visits Authorized [id number] Pending Review Auto-Generat ed Referral 05/25/2022 05/25/2023 1 1 [facility] for referral (narrative)* Diagnostic Procedure Only (Routine) - Pending Review Specialty Diagnoses / Procedures Referred By Contac t Referred To Contact [facility] Diagnoses GDM, class A2 Antepartum multigravida of advanced maternal age Procedures OBSTETRIC ULTRASOUND WHI US PREG UTERUS AFTER 1ST TRIMEST GESTATION Angie Padilla APRN.CNM [address] [place] [address] [address] Referral ID Status Reason Start Date Expiration Date Visits Requested Visits Authorized [id number] Pending Review Auto-Generat ed Referral 2 06/13/2023 1 1 [facility] for referral (narrative)* Outpatient Procedure (Routine) - Pending Review Specialty Diagnoses / Procedures Referred By Contac t Referred To Contact [facility] Diagnoses 34 weeks gestation of Antepartum multigravida of advanced maternal age GDM, class A2 Procedures NON-STRESS TEST NON-STRESS TEST Angie Padilla APRN.CNM [address] [place] [address] [address] Referral ID Status Reason Start Date Expiration Date Visits Requested Visits Authorized [id number] Pending Review Auto-Generat ed Referral 2 06/23/2023 1 1 [facility] for referral (narrative)* Diagnostic Procedure Only (Routine) - Pending Review Specialty Diagnoses / Procedures Referred By Contac t Referred To Contact [facility] Diagnoses Encounter for screening mammogram for breast cancer Procedures YOSEF SCREENING SCREENING MAMMOGRAPHY BI 2-VIEW BREAST INC CAD Micky Frederick MD [address] [place] [address] [facility] [address] [place] [address] Referral ID Status Reason Start Date Expiration Date Visits Requested Visits Authorized [id number] Pending Review Auto-Generat ed Referral 07/28/2022 08/27/[address] [facility] for referral (narrative)* Diagnostic Procedure Only (Routine) - Pending Review Specialty Diagnoses / Procedures Referred By Cesar t Referred To Contact [facility] Diagnoses Encounter for screening mammogram for breast cancer Procedures YOSEF SCREENING SCREENING MAMMOGRAPHY BI 2-VIEW BREAST INC CAD Micky Frederick MD [address] [place] [address] [facility] [address] [place] [phone] Referral ID Status Reason Start Date Expiration Date Visits Requested Visits Authorized [id number] Pending Review Auto-Generat ed Referral 07/05/2023 08/03/[address] [facility] for visit Narrative* Diagnostic Procedure Only (Routine) - Closed Specialty Diagnoses / Procedures Referred By Cesar t Referred To Contact [facility] Diagnoses Antepartum multigravida of advanced maternal age Procedures OBSTETRIC ULTRASOUND WHI US PREG UTERUS AFTER 1ST TRIMEST GESTATION Bertram Quintana MD [address] [place] [address] [facility] [address] [place] [address] Referral ID Status Reason Start Date Expiration Date V isits Requested Visits Authorized [id number] Closed Auto-Generate d Referral 01/18/2022 01/18/2023 1 1 [facility] Reason for Referral Specialty Diagnoses / Procedures Referred By Cesar t Referred To Contact Diagnoses Antepartum multigravida of advanced maternal age Procedures CONSULT TO MATERNAL MEDI OFFICE/OUTPATIENT [facility] MDM 60-74 MINUTES Bertram Quintana MD [address] [place] [address] Referral ID Status Reason Start Date Expiration Date Visits Requested Visits Authorized [id number] Authorized PCP Requested Referral Auto-Generate d Referral 12/21/2021 12/21/2022 1 1 Specialty Diagnoses / Procedures Referred By Contskip t Referred To Contact [facility] Diagnoses Antepartum multigravida of advanced maternal age Procedures NUCHAL TRANSLUCENCY WHI US NUCHAL TRANSLUCENCY 1ST GESTATION Bertram Quintana MD [address] [place] [address] [facility] [address] [place] [address] Referral ID Status Reason Start Date Expiration Date Visits Requested Visits Authorized [id number] Authorized Auto-Generat ed Referral 12/21/2021 12/21/2022 1 [...] or prosecute any alcohol or drug abuse patient.[facility] HospitalIn the event this information is protected by the Federal Confidentiality of Alcohol and Drug Abuse Patient Records regulations: The Federal rules restrict any use of the information to criminally investigate or prosecute any alcohol or drug abuse patient.[facility] HospitalIn the event this information is protected by the Federal Confidentiality of Alcohol and Drug Abuse Patient Records regulations: The Federal rules restrict any use of the information to criminally investigate or prosecute any alcohol or drug abuse patient.[facility] HospitalIn the event this information is protected by the Federal Confidentiality of Alcohol and Drug Abuse Patient Records regulations: The Federal rules restrict any use of the information to criminally investigate or prosecute any alcohol or drug abuse patient.[facility] HospitalIn the event this information is protected by the Federal Confidentiality of Alcohol and Drug Abuse Patient Records regulations: The Federal rules restrict any use of the information to criminally investigate or prosecute any alcohol or drug abuse patient.[facility] HospitalIn the event this information is protected by the Federal Confidentiality of Alcohol and Drug Abuse Patient Records regulations: The Federal rules restrict any use of the information to criminally investigate or prosecute any alcohol or drug abuse patient.[facility] HospitalIn the event this information is protected by the Federal Confidentiality of Alcohol and Drug Abuse Patient Records regulations: The Federal rules restrict any use of the information to criminally investigate or prosecute any alcohol or drug abuse patient.[facility] HospitalIn the event this information is protected by the Federal Confidentiality of Alcohol and Drug Abuse Patient Records regulations: The Federal rules restrict any use of the information to criminally investigate or prosecute any alcohol or drug abuse patient.[facility] HospitalIn the event this information is protected by the Federal Confidentiality of Alcohol and Drug Abuse Patient Records regulations: The Federal rules restrict any use of the information to criminally investigate or prosecute any alcohol or drug abuse patient.[facility] HospitalIn the event this information is protected by the Federal Confidentiality of Alcohol and Drug Abuse Patient Records regulations: The Federal rules restrict any use of the information to criminally investigate or prosecute any alcohol or drug abuse patient.[facility] HospitalIn the event this information is protected by the Federal Confidentiality of Alcohol and Drug Abuse Patient Records regulations: The Federal rules restrict any use of the information to criminally investigate or prosecute any alcohol or drug abuse patient.[facility] HospitalIn the event this information is protected by the Federal Confidentiality of Alcohol and Drug Abuse Patient Records regulations: The Federal rules restrict any use of the information to criminally investigate or prosecute any alcohol or drug abuse patient.[facility] HospitalIn the event this information is protected by the Federal Confidentiality of Alcohol and Drug Abuse Patient Records regulations: The Federal rules restrict any use of the information to criminally investigate or prosecute any alcohol or drug abuse patient.[facility] HospitalIn the event this information is protected by the Federal Confidentiality of Alcohol and Drug Abuse Patient Records regulations: The Federal rules restrict any use of the information to criminally investigate or prosecute any alcohol or drug abuse patient.[facility] HospitalIn the event this information is protected by the Federal Confidentiality of Alcohol and Drug Abuse Patient Records regulations: The Federal rules restrict any use of the information to criminally investigate or prosecute any alcohol or drug abuse patient.[facility] HospitalIn the event this information is protected by the Federal Confidentiality of Alcohol and Drug Abuse Patient Records regulations: The Federal rules restrict any use of the information to criminally investigate or prosecute any alcohol or drug abuse patient.[facility] HospitalIn the event this information is protected by the Federal Confidentiality of Alcohol and Drug Abuse Patient Records regulations: The Federal rules restrict any use of the information to criminally investigate or prosecute any alcohol or drug abuse patient.[facility] HospitalIn the event this information is protected by the Federal Confidentiality of Alcohol and Drug Abuse Patient Records regulations: The Federal rules restrict any use of the information to criminally investigate or prosecute any alcohol or drug abuse patient.[facility] HospitalIn the event this information is protected by the Federal Confidentiality of Alcohol and Drug Abuse Patient Records regulations: The Federal rules restrict any use of the information to criminally investigate or prosecute any alcohol or drug abuse patient.[facility] HospitalIn the event this information is protected by the Federal Confidentiality of Alcohol and Drug Abuse Patient Records regulations: The Federal rules restrict any use of the information to criminally investigate or prosecute any alcohol or drug abuse patient.[facility] HospitalIn the event this information is protected by the Federal Confidentiality of Alcohol and Drug Abuse Patient Records regulations: The Federal rules restrict any use of the information to criminally investigate or prosecute any alcohol or drug abuse patient.[facility] HospitalIn the event this information is protected by the Federal Confidentiality of Alcohol and Drug Abuse Patient Records regulations: The Federal rules restrict any use of the information to criminally investigate or prosecute any alcohol or drug abuse patient.[facility] HospitalIn the event this information is protected by the Federal Confidentiality of Alcohol and Drug Abuse Patient Records regulations: The Federal rules restrict any use of the information to criminally investigate or prosecute any alcohol or drug abuse patient.[facility] HospitalIn the event this information is protected by the Federal Confidentiality of Alcohol and Drug Abuse Patient Records regulations: The Federal rules restrict any use of the information to criminally investigate or prosecute any alcohol or drug abuse patient.[facility] HospitalIn the event this information is protected by the Federal Confidentiality of Alcohol and Drug Abuse Patient Records regulations: The Federal rules restrict any use of the information to criminally investigate or prosecute any alcohol or drug abuse patient.[facility] HospitalIn the event this information is protected by the Federal Confidentiality of Alcohol and Drug Abuse Patient Records regulations: The Federal rules restrict any use of the information to criminally investigate or prosecute any alcohol or drug abuse patient.[facility] HospitalIn the event this information is protected by the Federal Confidentiality of Alcohol and Drug Abuse Patient Records regulations: The Federal rules restrict any use of the information to criminally investigate or prosecute any alcohol or drug abuse patient.[facility] HospitalIn the event this information is protected by the Federal Confidentiality of Alcohol and Drug Abuse Patient Records regulations: The Federal rules restrict any use of the information to criminally investigate or prosecute any alcohol or drug abuse patient.[facility] HospitalIn the event this information is protected by the Federal Confidentiality of Alcohol and Drug Abuse Patient Records regulations: The Federal rules restrict any use of the information to criminally investigate or prosecute any alcohol or drug abuse patient.[facility] HospitalIn the event this information is protected by the Federal Confidentiality of Alcohol and Drug Abuse Patient Records regulations: The Federal rules restrict any use of the information to criminally investigate or prosecute any alcohol or drug abuse patient.[facility] HospitalIn the event this information is protected by the Federal Confidentiality of Alcohol and Drug Abuse Patient Records regulations: The Federal rules restrict any use of the information to criminally investigate or prosecute any alcohol or drug abuse patient.[facility] HospitalIn the event this information is protected by the Federal Confidentiality of Alcohol and Drug Abuse Patient Records regulations: The Federal rules restrict any use of the information to criminally investigate or prosecute any alcohol or drug abuse patient.[facility] HospitalIn the event this information is protected by the Federal Confidentiality of Alcohol and Drug Abuse Patient Records regulations: The Federal rules restrict any use of the information to criminally investigate or prosecute any alcohol or drug abuse patient.[facility] HospitalIn the event this information is protected by the Federal Confidentiality of Alcohol and Drug Abuse Patient Records regulations: The Federal rules restrict any use of the information to criminally investigate or prosecute any alcohol or drug abuse patient.[facility] HospitalIn the event this information is protected by the Federal Confidentiality of Alcohol and Drug Abuse Patient Records regulations: The Federal rules restrict any use of the information to criminally investigate or prosecute any alcohol or drug abuse patient.[facility] HospitalIn the event this information is protected by the Federal Confidentiality of Alcohol and Drug Abuse Patient Records regulations: The Federal rules restrict any use of the information to criminally investigate or prosecute any alcohol or drug abuse patient.[facility] HospitalIn the event this information is protected by the Federal Confidentiality of Alcohol and Drug Abuse Patient Records regulations: The Federal rules restrict any use of the information to criminally investigate or prosecute any alcohol or drug abuse patient.[facility] Reason for Visit (unrecogniz ed section and content) Specialty Diagnoses / Procedures Referred By Cesar huynh Referred To Contact PLASTIC MANAGER Diagnoses OB Procedures OFFICE/OUTPATIENT ESTABLISHED LOW MDM 20-29 MIN EST WHI OB Kelli Arnett MD [address] [place] [address] Carmelita Parikh MD [address] [place] [address] Referral ID Status Reason Start Date Expiration Date Visits Re quested Visits Authorized [id number] Closed 07/15/2022 08/27/2022 2 2 Reason Onset Date Comments Care 07/06/2022 Specialty Diagnoses / Procedures [facility] PLASTIC MANAGER Diagnoses ob Procedures [facility] OB 1ST EXAM Self Bertram Quintana MD [address] [place] [address] Referral ID Status Reason Start Date Expiration Date V isits Requested Visits Authorized [id number] Authorized 08/28/2021 08/27/2022 99 99 Reason Onset Date Comments Care 06/23/2022 Specialty Diagnoses / Procedures [facility] To Contact PLASTIC MANAGER Diagnoses ob Procedures [facility] OB 1ST EXAM Self Bertram Quintana MD [address] [place] [address] Reason Onset Date Comments Care 06/10/2022 Reason Onset Date Comments Care 05/12/2022 Reason Onset Date Comments Care 01/18/2022 Reason Comments +UPT Reason Comments Care Reason Comments Initial OB Visit Reason Comments Outside Labs Results Reason Comments US Specialty Diagnoses / Procedures [facility] To Contact [facility] Diagnoses Antepartum multigravida of advanced maternal age Procedures NUCHAL TRANSLUCENCY WHI US NUCHAL TRANSLUCENCY 1ST GESTATION Bertram Quintana MD [address] [place] [address] [facility] [address] [place] [address] Referral ID Status Reason Start Date Expiration Date V isits Requested Visits Authorized [id number] Closed Auto-Generate d Referral 12/21/2021 12/21/2022 1 1 Reason Comments Maternity 21 results Reason Onset Date Comments Care 02/17/2022 Reason Comments Results Reason Onset Date Comments Care 03/11/2022 Specialty Diagnoses / Procedures [facility] Ref[facility] To Contact PLASTIC MANAGER Diagnoses Supervision of elderly multigravida, unspecified trimester OB / anatomy ultrasound Procedures US PREG UTERUS AFTER 1ST TRIMEST GESTATION EST I OB Bertram Quintana MD [address] [place] [address] Angie Padilla APRN.CNM [address] [place] [address] Referral ID Status Reason Start Date Expiration Date Visits Re quested Visits Authorized [id number] Closed 08/28/2021 08/27/2022 1 1 Reason Onset Date Comments Care 04/12/2022 Specialty Diagnoses / Procedures Referred By Contac t Referred To Contact PLASTIC MANAGER Diagnoses ob Procedures [facility] OB 1ST EXAM MD Manuel Gomez Karmon, MD [address] [place] [address] Reason Comments Medication Problem Reason Onset Date Comments Care 05/25/2022 Specialty Diagnoses / Procedures Referred By Contac t Referred To Contact Diagnoses Antepartum multigravida of advanced maternal age Procedures CONSULT TO MATERNAL MEDI OFFICE/OUTPATIENT NEW HIGH MDM 60-74 MINUTES Bertram Quintana MD [address] [place] [address] Referral ID Status Reason Start Date Expiration Date V isits Requested Visits Authorized [id number] Closed PCP Requested Referral Auto-Generated Referral 12/21/2021 12/21/2022 1 1 Specialty Diagnoses / Procedures Referred By Contac t Referred To Contact [facility] Diagnoses Antepartum multigravida of advanced maternal age 30 weeks gestation of GDM, class A2 Procedures OBSTETRIC ULTRASOUND WHI US PREG UTERUS AFTER 1ST TRIMEST GESTATION Bere Mccauley MD [address] [facility] [place] [address] [facility] [address] [place] [address] Referral ID Status Reason Start Date Expiration Date V isits Requested Visits Authorized [id number] Open Auto-Generate d Referral 05/25/2022 05/25/2023 1 1 Reason Comments Orders Reason Comments Weekly NST Specialty Diagnoses / Procedures Referred By Contac t Referred To Contact [facility] Diagnoses GDM, class A2 Antepartum multigravida of advanced maternal age Procedures OBSTETRIC ULTRASOUND WHI US PREG UTERUS AFTER 1ST TRIMEST GESTATION Angie Padilla APRN.CNM [address] [place] [address] [facility] [address] [place] [address] Referral ID Status Reason Start Date Expiration Date V isits Requested Visits Authorized [id number] Closed Auto-Generate d Referral 06/13/2022 06/13/2023 1 1 Reason Comments Patient Question Reason Onset Date Comments Care 07/15/2022 Referral ID Status Reason Start Date Expiration Date V isits Requested Visits Authorized [id number] Authorized 07/15/2022 08/27/2022 2 2 Reason Comments Ob Delivery Note Reason Comments FMLA Paperwork Specialty Diagnoses / Procedures Referred By Contac t Referred To Contact PLASTIC MANAGER Diagnoses Follow-up exam 6Wk Post Procedures OFFICE/OUTPATIENT ESTABLISHED HIGH MDM 40-54 MIN POST Bertram Quintana MD [address] [place] [place] [address] Bertram Quintana MD [address] [place] [place] [address] Referral ID Status Reason Start Date Expiration Date Visits Re quested Visits Authorized [id number] Closed 08/24/2022 08/27/2023 1 1 Reason Comments Forms/letter Care Teams (unrecognized sec tion and content) [employer] Relationship Specialty Start Date End Date Micky Frederick MD [address] [place], [place] [id number] [phone] PCP - General Family Practice 06/22/21 [employer] Relationship Specialty Start Date End Date Micky Frederick MD [address] [place], [place] [id number] [phone] PCP - General Family Practice 06/22/21 [employer] Relationship Specialty Start Date End Date Micky Frederick MD [address] [place] [address] PCP - General Family Practice 06/22/21 [employer] Relationship Specialty Start Date End Date Micky Frederick MD [address] [facility] [place] [address] PCP - General Family Practice 06/22/21 [employer] Relationship Specialty Start Date End Date Micky Frederick MD [address] [place] [address] PCP - General Family Practice 06/22/21 [employer] Relationship Specialty Start Date End Date Micky Frederick MD [facility] [place] [address] PCP - General Family Practice 06/22/21 [employer] Relationship Specialty Start Date End Date Micky Frederick MD [address] [place] [address] [place] [address] PCP - General Family Practice 06/22/21 [employer] Relationship Specialty Start Date End Date Micky Frederick MD [address] [place] [id number] PCP - General Family Practice 06/22/21 [employer] Relationship Specialty Start Date End Date Micky Frederick MD [facility] [place] [address] PCP - General Family Practice 06/22/21 [employer] Relationship Specialty Start Date End Date Micky Frederick MD [facility] [place] [address] PCP - General Family Medicine 06/22/21 [employer] Relationship Specialty Start Date End Date Micky Frederick MD [facility] [place] [address] PCP - General Family Medicine 06/22/21 [employer] Relationship Specialty Start Date End Date Micky Frederick MD [facility] [place] [address] PCP - General Family Medicine 06/22/21 [employer] Relationship Specialty Start Date End Date Micky Frederick MD [address] [facility] [place] [address] PCP - General Family Medicine 06/22/21 [employer] Relationship Specialty Start Date End Date Micky Frederick MD [address] [facility] [place] [address] PCP - General Family Medicine 06/22/21 [employer] Relationship Specialty Start Date End Date Micky Frederick MD [address] [facility] [place] [address] PCP - General Family Medicine 06/22/21 [employer] Relationship Specialty Start Date End Date Micky Frederick MD [facility] [place] [address] PCP - General Family Medicine 06/22/21 [employer] Relationship Specialty Start Date End Date Micky Frederick MD [facility] [place] [address] PCP - General Family Medicine 06/22/21 [employer] Relationship Specialty Start Date End Date Micky Frederick MD [facility] [place] [address] PCP - General Family Medicine 06/22/21 [employer] Relationship Specialty Start Date End Date Micky Frederick MD [facility] [place] [address] PCP - General Family Medicine 06/22/21 [employer] Relationship Specialty Start Date End Date Micky Frederick MD [facility] [place] [address] PCP - General Family Medicine 06/22/21 [employer] Relationship Specialty Start Date End Date Micky Frederick MD [facility] [place] [address] PCP - General Family Medicine 06/22/21 [employer] Relationship Specialty Start Date End Date Micky Frederick MD [address] [place] [address] PCP - General Family Medicine 06/22/21 [employer] Relationship Specialty Start Date End Date Micky Frederick MD [address] [place] [address] PCP - General Family [facility] 06/22/21 [employer] Relationship Specialty Start Date End Date Micky Frederick MD [address] [place] [address] PCP - [facility] 06/22/21 [employer] Relationship Specialty Start Date End Date Micky Frederick MD [address] [place] [address] PCP - [facility] 06/22/21 [employer] Relationship Specialty Start Date End Date Micky Frederick MD [address] [place] [address] PCP - General [facility] 06/22/21 INFORMATION SOURCE (unrecogn ized section and [...] BE BASED ON THE PRIMARY CLINICAL RECORDS. [employer] [facility]. provides no warranty or guarantee of the accuracy or completeness of information in this document.
[2023-09-24] MEDS: 0.9% Saline Lock 10 ML Syringe IV (14:47)
[2023-09-24] MEDS: 0.9% Normal Saline (1000mL) 1,000 ML 60 ML IV (14:47)
--- NOTE | 2023-09-24 17:20 | NURSING ---
Eating Clear liquid diet at this time. Pt up to bathroom, voided, dressed and denies need for pain medicaiton.
== END 2023-09-24 17:57 | disposition home or self-care (01) ==
LOC: ED 06:27 → MS3 08:09
PROVIDERS: Admitting Provider Surgery; Emergency Provider Emergency Medicine; PCP Psychiatry & Neurology Vascular Neurology; Visit Provider Surgery
PROC: (CPT 47563; principal; 2023-09-24 11:15)
DX: K80.12 Calculus of gallbladder with acute and chronic cholecystitis without obstruction (principal); R03.0 Elevated blood-pressure reading, without diagnosis of hypertension
CPT/HCPCS: 47563; 00790; 74300; 76000; 76705; 80076; 83690; 84484; 84703; 85025; 88304; 93005; 96365; 96375; 96376; 99284; J7030; J7050; A4216; J2405

== ENCOUNTER 2023-11-01 22:20 | Emergency (ER) | payer OTHER, SELFPAY ==
[2023-11-01 22:21] VITALS: BP 127/79; PULSE 73; RESP 18; TEMP 36.7; O2SAT 99; BMI 29.2
--- NOTE | 2023-11-01 22:37 | ED.VIS.LOWEX ---
HPI History of Present Illness Chief Complaint: Lower Extremity Injury Informant: patient Occured/Mechanism Mechanism/Context: Yes fall Comment: Down several basement steps after slipping while carrying laundry Onset/Context/Timing Onset: Today (Just prior to arrival) Context: Sudden Onset Timing: Continuous Quality of Pain: Aching Location: Left ankle Current Severity: Moderate Maximum Severity: Severe Worsened by: Movement, bearing weight Relieved by: Remaining still Associated Symptoms Associated Symptoms: Negative for Parasthesia, Weakness or Loss of Funtion Narrative Narrative: Patient injured her left ankle unsure of exact mechanism but hurts on the outside of it and the top of her foot. No other injury. Able to bear weight but with significant pain and difficulty. PFSH [facility] Medical History Advanced maternal age (AMA) in Gestational diabetes Gestational diabetes History of in vitro fertilization History of loss of consciousness Infertility macrosomia Seasonal allergies Staph infection Tinea corporis Home Medications acetaminophen 325 mg tablet 650 mg (2 x 325 mg) PO Q4H PRN PRN Pain Or Fever #0 tabs 09/24/23 [Rx Last Taken Unknown] Allergy/AdvReac Type Severity Reaction Status Date / Time adhesive tape Allergy Unknown Verified 11/01/23 22:23 Family History Other Epilepsy Hypertension Skin cancer Surgical History H/O wisdom tooth extraction Hx of section S/P cholecystectomy Status post repeat low transverse section Social History household members: spouse and children Smoking Status: Never smoker alcohol intake: never ROS ROS ED Constitutional Constitutional ED: Denies chills or fever(s) Musculoskeletal Musculoskeletal: Reports extremity pain; Denies neck pain Integumentary Denies Abrasions, rash or wounds Neurologic Neurologic: Denies paresthesias or weakness EXAM Physical Exam Const Vital Signs: 11/01/23 22:21 Temperature 98.0 F Temperature Source Temporal Pulse Rate 73 Respiratory Rate 18 Blood Pressure 127/79 H Blood Pressure Mean 95 Pulse Ox 99 Oxygen Delivery Method Room Air Positive well nourished and well developed General Appearance ED: well developed and NAD Neck full ROM and supple Back/Spine normal ROM and normal to inspection Extremity Extremity Narrative: Tenderness, swelling, ecchymosis lateral aspect of the left ankle anterior to the lateral malleolus which is also tender. There is no deformity. Limited range of motion of the ankle and the foot due to pain but able. Nontender to base of the fifth metatarsal, medial malleolus, and the fibular head. All compartments of the lower leg soft and nondistended. Neurovascular intact distally. No other limitations or injuries. Neuro oriented x3, no focal motor deficits and no sensory deficits noted Sensorium / Orientation: alert Psych mental status grossly normal and thought process normal Skin no wounds Rashes: no rashes MDM MDM MDM Narrative Medical decision making narrative: Three-view x-ray series of the left ankle was obtained, I do not think she needs dedicated foot x-rays; on my interpretation it appears to show a lateral anterior calcaneus avulsion fracture. The mortise and other ankle components are intact. She is going to need crutches in order to bear weight she can barely do so on this, therefore I am putting her in a orthotic of the boot, given her crutches, she was given ibuprofen, and she will follow-up with podiatry for this fracture which is likely nonsurgical as I discussed with the patient. Radiography Diagnostic Testing: Clinical Impression(s) from Imaging Studies Ankle X-Ray 11/01/23 22:43 IMPRESSION: Possible fracture of the anterior process of the calcaneus. Electronically Signed: Angel Lemus MD at 23:47 EST Reading Location ID and State: [facility] / [place] Tel , Service support , Discharge Plan Triage Chief Complaint: Lower Extremity Injury ED Provider: Derian Bird Dx/Rx/DC Orders Clinical Impression: Avulsion fracture of left calcaneus, Sprain of ankle, left Instructions: ED Fracture, Foot, ED Ankle Sprain (Adult) Prescriptions: No Action acetaminophen 325 mg Tablet 650 mg PO Q4H PRN PRN (Reason: Pain Or Fever) Qty: 0 0RF Primary Care Provider: Manuel Noland Referrals: Chandan Bravo DPM [Med Staff - Active Staff] - As soon as possible (call for appt) Manuel Noland MD [Primary Care Provider] - Activity Restrictions/Additional Instructions: Okay to remove boot for shower/bath, sleep, etc. Okay to ice, Tylenol, ibuprofen as needed for pain. Disposition Disposition: Home, Self Care
--- NOTE | 2023-11-01 22:43 | RAD_ITS ---
INDICATION: injury EXAMINATION/TECHNIQUE: X-RAY - LEFT XR Ankle 3 Views COMPARISON: None. FINDINGS: 3 views of the left ankle were obtained. Soft tissue swelling at the lateral aspect. Few curvilinear bone fragments near the anterior process of the calcaneus. The talar dome is normal in appearance. RAD/Ankle min 3 Views IMPRESSION: Possible fracture of the anterior process of the calcaneus. Electronically Signed: Angel Lemus MD at 23:47 EST ,
--- OUTSIDE RECORDS SUMMARY | 2023-11-01 22:47 | XMS RPT_ITS | CCD ---
Author Name Unknown Address [address] [place] [address] Organization [facility] Care Team Providers Care Business System Consultant Name Role Phone Micky Frederick MD Primary Care Provider [phone] BERTRAM QUINTANA Attending Unavailable MICKY FREDERICK Primary Care Unavailable Allergies Allergy Classification Reported Allergen(s) Allergy Type Date of Onset Reaction(s) Facility (20 sources) Adhesive agent; Translations: [ADHESIVE] Drug Allergy 06-03-2021 Unknown [facility] Medications Completed/Discontinued Medications Medication Drug Class(es) [...] Date Time Vital Sign Value Performing Clinician Faci lity 09-28-2023 15:47-0500 Body height 152.4 cm Bertram Quintana MD Work Phone: [facility] 09-28-2023 15:47-0500 Body weight 70.76 kg Bertram Quintana MD Work Phone: [facility] 09-28-2023 15:47-0500 Diastolic blood pressure 82 mm[Hg] Bertram Quintana MD Work Phone: [facility] 09-28-2023 15:47-0500 Systolic blood pressure 120 mm[Hg] Bertram Quintana MD Work Phone: [facility] 09-06-2022 09:00-0500 Body weight 72.12 kg Bertram Quintana MD Work Phone: [facility] 09-06-2022 09:00-0500 Diastolic blood pressure 70 mm[Hg] Bertram Quintana MD Work Phone: [facility] 09-06-2022 09:00-0500 Systolic blood pressure 98 mm[Hg] Bertram Quintana MD Work Phone: [facility] 07-22-2022 10:54-0500 Body weight 80.88 kg Bertram Quintana MD Work Phone: [facility] 07-22-2022 10:54-0500 Diastolic blood pressure 62 mm[Hg] Bertram Quintana MD Work Phone: [facility] 07-22-2022 10:54-0500 Heart rate 81 /min Bertram Quintana MD Work Phone: [facility] 07-22-2022 10:54-0500 SaO2% (BldA) [Mass fraction] 100 % Bertram Quintana MD Work Phone: [facility] 07-22-2022 10:54-0500 Systolic blood pressure 98 mm[Hg] Bertram Quintana MD Work Phone: [facility] 07-15-2022 09:04-0500 Body height 152.4 cm Bertram Quintana MD Work Phone: [facility] 07-15-2022 09:04-0500 Body weight 80.74 kg Bertram Quintana MD Work Phone: [facility] 07-15-2022 09:04-0500 Diastolic blood pressure 62 mm[Hg] Bertram Quintana MD Work Phone: [facility] 07-15-2022 09:04-0500 Systolic blood pressure 118 mm[Hg] Bertram Quintana MD Work Phone: [facility] 07-06-2022 08:17-0500 Body weight 78.93 kg Tahmina Blackwood MD Work Phone: [facility] 07-06-2022 08:17-0500 Diastolic blood pressure 72 mm[Hg] Tahmina Blackwood MD Work Phone: [facility] 07-06-2022 08:17-0500 Systolic blood pressure 114 mm[Hg] Tahmina Blackwood MD Work Phone: [facility] 06-23-2022 13:56-0400 Body weight 79.83 kg Angie Plotts CLINICAL SCIENCE LIAISON.CNM Work Phone: [facility] 06-23-2022 13:56-0400 Diastolic blood pressure 88 mm[Hg] Angie Plotts CLINICAL SCIENCE LIAISON.CNM Work Phone: [facility] 06-23-2022 13:56-0400 Systolic blood pressure 128 mm[Hg] Angie Plotts CLINICAL SCIENCE LIAISON.CNM Work Phone: [facility] 06-10-2022 13:26-0400 Body weight 78.93 kg Angie Plotts CLINICAL SCIENCE LIAISON.CNM Work Phone: [facility] 06-10-2022 13:26-0400 Diastolic blood pressure 66 mm[Hg] Angie Plotts CLINICAL SCIENCE LIAISON.CNM Work Phone: [facility] 06-10-2022 13:26-0400 Systolic blood pressure 102 mm[Hg] Angie Padilla CLINICAL SCIENCE LIAISON.CNM Work Phone: [facility] 05-25-2022 13:19-0400 Body weight 78.83 kg Bere Mccauley MD Work Phone: [facility] 05-25-2022 13:19-0400 Diastolic blood pressure 74 mm[Hg] Bere Mccauley MD Work Phone: [facility] 05-25-2022 13:19-0400 Systolic blood pressure 110 mm[Hg] Bere Mccauley MD Work Phone: [facility] 05-12-2022 08:39-0400 Body weight 77.66 kg Bere Mccauley MD Work Phone: [facility] 05-12-2022 08:39-0400 Diastolic blood pressure 62 mm[Hg] Bere Mccauley MD Work Phone: [facility] 05-12-2022 08:39-0400 Systolic blood pressure 100 mm[Hg] Bere Mccauley MD Work Phone: [facility] 04-12-2022 08:35-0400 Body weight 77.11 kg Tahmina Blackwood MD Work Phone: [facility] 04-12-2022 08:35-0400 Diastolic blood pressure 62 mm[Hg] Tahmina Blackwood MD Work Phone: [facility] 04-12-2022 08:35-0400 Systolic blood pressure 108 mm[Hg] Tahmina Blackwood MD Work Phone: [facility] 03-11-2022 14:50-0400 Body weight 74.39 kg Angie Padilla CLINICAL SCIENCE LIAISON.CNM Work Phone: [facility] 03-11-2022 14:50-0400 Diastolic blood pressure 60 mm[Hg] Angie Padilla CLINICAL SCIENCE LIAISON.CNM Work Phone: [facility] 03-11-2022 14:50-0400 Systolic blood pressure 110 mm[Hg] Angie Padilla CLINICAL SCIENCE LIAISON.CNM Work Phone: [facility] 02-17-2022 16:35-0400 Body weight 73.48 kg Angie Padilla CLINICAL SCIENCE LIAISON.CNM Work Phone: [facility] 02-17-2022 16:35-0400 Diastolic blood pressure 74 mm[Hg] Angie Walshts CLINICAL SCIENCE LIAISON.CNM Work Phone: [facility] 02-17-2022 16:35-0400 Systolic blood pressure 120 mm[Hg] Angie Plotts CLINICAL SCIENCE LIAISON.CNM Work Phone: [facility] 01-18-2022 15:08-0400 Body weight 73.03 kg Hansel Farr MD Work Phone: [facility] 01-18-2022 15:08-0400 Diastolic blood pressure 74 mm[Hg] Hansel Farr MD Work Phone: [facility] 01-18-2022 15:08-0400 Systolic blood pressure 120 mm[Hg] Hansel Farr MD Work Phone: [facility] 12-21-2021 10:03-0400 Body height 151 cm Bertram Quintana MD Work Phone: [facility] 12-21-2021 10:03-0400 Body weight 73.21 kg Bertram Quintana MD Work Phone: [facility] 12-21-2021 10:03-0400 Diastolic blood pressure 72 mm[Hg] Bertram Quintana MD Work Phone: [facility] 12-21-2021 10:03-0400 Systolic blood pressure 118 mm[Hg] Bertram Quintana MD Work Phone: [facility] Encounters Encounter Date Encounter Type Care Provider Facility Start: 09-28-2023 End: 09-28-2023 ambulatory BERTRAM QUINTANA Facility:[facility] Start: 09-28-2023 End: 09-28-2023 Patient encounter procedure Bertram Quintana MD Work Phone: OB/Gynecology Procedures Date Procedure Procedure Detail Performing Clinician Start: 07-22-2022 URINE OB DIP B/O Bertram Quintana MD Work Phone: Start: 07-15-2022 URINE OB DIP B/O Bertram Quintana MD Work Phone: Start: 07-06-2022 URINE OB DIP B/O Mckenna Blackwood MD Work Phone: Start: 07-06-2022 Us preg uterus after 1st trimest 08/28 gestation Angie Padilla CLINICAL SCIENCE LIAISON.CNM Work Phone: Start: 06-23-2022 URINE OB DIP B/O Flor Padilla CLINICAL SCIENCE LIAISON.CNM Work Phone: Start: 06-10-2022 URINE OB DIP B/O Bere ritter MD Work Phone: Start: 06-10-2022 Us preg uterus after 1st trimest 08/28 gestation Bere Mccauley MD Work Phone: Start: 05-25-2022 URINE OB DIP B/O Bere ritter MD Work Phone: Start: 05-12-2022 URINE OB DIP B/O Bere ritter MD Work Phone: Start: 04-12-2022 URINE OB DIP B/O Mckenna Blackwood MD Work Phone: Start: 03-11-2022 Us preg uterus after 1st trimest 08/28 gestation Bertram Quintana MD Work Phone: Start: 02-17-2022 URINE OB DIP B/O Flor Padilla CLINICAL SCIENCE LIAISON.CNM Work Phone: Start: 01-18-2022 URINE OB DIP B/O Bertram Quintana MD Work Phone: Start: 01-18-2022 Us nuchal translucency 1st gestation Bertram Quintana MD Work Phone: Start: 12-23-2021 CBCDIF (EXTERNAL) [facility] Start: 12-23-2021 Hemoglobin A1c/Hemoglobin.total in Blood [facility] Provider H/O: section History of delivery, currently Bertram Quintana MD Work Phone: H/O: section History of delivery, currently Angie Randy ORDONEZ Work Phone: Plan of Treatment Date Care Activity Detail Author Start: 05-12-2032 Urine microalbumin profile [facility] Start: 04-09-2029 Urine microalbumin profile DTAP,TDAP,TD (3 - Td or Tdap) [facility] Start: 09-06-2027 HPV TESTING HPV TESTING [facility] Start: 09-06-2027 PAP TESTING PAP TESTING [facility] Start: 09-06-2027 Screening for malignant neoplasm of cervix [facility] Start: 07-18-2024 HPV TESTING HPV TESTING [facility] Start: 07-18-2024 PAP TESTING PAP TESTING [facility] Start: 08-28-2023 Depression Assessment Depression Assessment [facility] Start: 04-28-2023 Covid-19 Vaccine () Covid-19 Vaccine () [facility] Start: 04-28-2023 Influenza vaccination Influenza Vaccine (#1) [facility] Start: 08-28-2022 DEPRESSION ASSESSMENT DEPRESSION ASSESSMENT [facility] Start: 2022 Mammography [facility] Start: 2022 Screening for malignant neoplasm of breast Mammogram Screening [facility] Start: 06-13-2022 End: 06-13-2023 OBSTETRIC ULTRASOUND WHI OBSTETRIC ULTRASOUND I Anc Imaging Routine GDM, class A2 Antepartum multigravida of advanced maternal age Expected: 06/13/2022, Expires: 06/13/2023 [facility] Work Phone: Immunizations Immunization Date Immunization Notes Care Provider [facility] 05-27-2022 influenza virus vaccine, unspecified formulation Bertram Quintana MD Work Phone: [facility] 05-12-2022 tetanus toxoid, redu osman diphtheria toxoid, and acellular pertussis vaccine, adsorbed Bere Mccauley MD Work Phone: [facility] 04-09-2019 tetanus toxoid, redu osman diphtheria toxoid, and acellular pertussis vaccine, adsorbed Argenis Dyer APRN.CNM Work Phone: [facility] 10-04-2016 tetanus toxoid, redu osman diphtheria toxoid, and acellular pertussis vaccine, adsorbed Argenis Dyer APRN.CNM Work Phone: [facility] Work Phone: Payers Date Payer Category Payer Private Health Insurance [facility]OG[facility]ELENDRE[facility] [place] [id number] 2022-Present [phone] [address] [place] [address] PPO [id number] 2022 Private Health Insurance [id number] 2019 Unknown MMO MMO [employer] xxxx [id number] 2019-Present [address] [place] [address] PPO [id number] 2019 Unknown MMO MMO [employer] xxxx [id number] 2019-Present [address] [place] [address] PPO [id number] Social History Date Type Detail Facility Start: 05-12-2022 Tobacco smoking stat [facility] Never smoked tobacco [facility] Start: 06-22-2021 End: 09-28-2023 Alcohol intake Current drinker of alcohol (finding) [facility] Start: 05-10-2016 History SDOH Alcohol Comment Rarely, not while [facility] Start: 1980 Sex Assigned At Not on file [facility] Start: 11-19-2021 End: 07-15-2022 Exposure to SARS-CoV-2 (event) Not sure [facility] Start: 12-09-2021 Education 17 [facility] Start: 11-07-2021 [facility] Start: 05-12-2022 Tobacco use and exposure Smoke less tobacco non-user [facility] Start: 09-06-2022 End: 09-28-2023 History of Social function [facility] Start: 09-06-2022 End: 09-28-2023 Tobacco use panel [facility] National Score (1-10 0), lower number is lower risk 53 [facility] Start: 1980 Sex Assigned At Female [facility] Medical Equipment Procedure Code Equipment Code Equipment Origin al Text Equipment Identifier Dates Start: 05-09-2022 End: 09-06-2022 Goals Date Patient Goal Desired Activity /State Clinical Notes 04-24-2019 to 09-28-2023 Bertram Quintana MD - 09/28/2023 3:41 PM ESTTelephone Encounter - Lexie Richmond RN - 06/23/2023 2:20 PM EDTTelephone Encounter - Bertram Quintana MD - 06/23/2023 11:04 AM EDTPatient Instructions Note Date & Type Note Facility 09-28-2023 Note HNO ID: [id number] Author: BERTRAM QUINTANA MD Service: ? 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 Zainab is a 43 year old who presents for an annual gynecologic exam without complaints. She had her gallbladder removed Monday. Menses: cycles every 28-30 days and 7 days of flow. 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 History Comments: Sexual Activity: Yes; Male Contraception: No contraception data on record PAST MEDICAL HISTORY Diagnosis Date Antepartum anemia 04/10/2019 Diet controlled gestational diabetes mellitus (GDM) in third trimester 04/16/2019 infertility Infertility, female PAST SURGICAL HISTORY Procedure Laterality Date DELIVERY ONLY 01/05/2017 DELIVERY ONLY 05/30/2019 RC/S DI/di twins, low transverse DELIVERY ONLY 07/26/2022 [facility] IVF PACKAGE REMOVAL GALLBLADDER 09/24/2023 UNSPECIFIED ORAL SURGERY PROCEDURE, BY REPORT [place] teeth extracted FAMILY HISTORY Problem Relation Age [...] Known Problems Daughter No Known Problems Daughter SOCIAL HISTORY Social History Tobacco Use Smoking status: Never Smokeless tobacco: Never Vaping Use Vaping Use: Never used Substance Use Topics Alcohol use: Yes Comment: Rarely, not while Drug use: No REVIEW OF SYSTEMS Abdomen: No abdominal pain, nausea, vomiting, diarrhea, or constipation. No bloating, early satiety, indigestion, or increased flatulence. Bladder: No dysuria, gross hematuria, urinary frequency, urinary urgency, or incontinence. Breast: No breast lumps, nipple d/c, overlying skin changes, redness or skin retraction. Allergies and current medication updated:Yes EXAM: BP 120/82 Ht 5' 0 (1.52m) Wt 156 lb (70.8kg) LMP 09/14/2023 BMI 30.47 kg/(m2). GENERAL: pleasant, female in no apparent distress BREAST: soft, non-tender, symmetric, no dominant mass, normal nipple-areolar complex, no lymphadenopathy, and no nipple discharge CHEST: Normal inspiratory effort ABDOMEN: soft, non-tender, and no masses PELVIC: external genitalia normal, normal Bartholin's glands, urethra, Woodmoor's glands, no vulvar lesions, no cervical lesions, good vaginal support, physiologic discharge present, normal appearing perineal body and perianal region BIMANUAL: uterus normal size, shape and consistency, no adnexal masses, and non-tender RECTOVAGINAL: deferred. NEURO: alert and oriented x3,exam grossly non-focal EXTREMITIES: normal ASSESSMENT/PLAN: 1) Health maintenance: Pap/HPV up to date. Mammogram ordered at [facility] per patient request Nutrition, exercise and routine health maintenance exams reviewed. 2) Contraception: none. Contraceptive options reviewed and information provided. 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 Zainab is a 43 year old who presents for an annual gynecologic exam without complaints. She had her gallbladder removed Monday. Menses: cycles every 28-30 days and 7 days of flow. 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 History Comments: Sexual Activity: Yes; Male Contraception: No contraception data on record PAST MEDICAL HISTORY Diagnosis Date Antepartum anemia 04/10/2019 Diet controlled gestational diabetes mellitus (GDM) in third trimester 04/16/2019 infertility Infertility, female PAST SURGICAL HISTORY Procedure Laterality Date DELIVERY ONLY 01/05/2017 DELIVERY ONLY 05/30/2019 RC/S DI/di twins, low transverse DELIVERY ONLY 07/26/2022 [facility] IVF PACKAGE REMOVAL GALLBLADDER 09/24/2023 UNSPECIFIED ORAL SURGERY PROCEDURE, BY REPORT [place] teeth extracted FAMILY HISTORY Problem Relation Age [...] Known Problems Daughter No Known Problems Daughter SOCIAL HISTORY Social History Tobacco Use Smoking status: Never Smokeless tobacco: Never Vaping Use Vaping Use: Never used Substance Use Topics Alcohol use: Yes Comment: Rarely, not while Drug use: No REVIEW OF SYSTEMS Abdomen: No abdominal pain, nausea, vomiting, diarrhea, or constipation. No bloating, early satiety, indigestion, or increased flatulence. Bladder: No dysuria, gross hematuria, urinary frequency, urinary urgency, or incontinence. Breast: No breast lumps, nipple d/c, overlying skin changes, redness or skin retraction. Allergies and current medication updated:Yes EXAM: BP 120/82 Ht 5' 0 (1.52m) Wt 156 lb (70.8kg) LMP 09/14/2023 BMI 30.47 kg/(m^2). GENERAL: pleasant, female in no apparent distress BREAST: soft, non-tender, symmetric, no dominant mass, normal nipple-areolar complex, no lymphadenopathy, and no nipple discharge CHEST: Normal inspiratory effort ABDOMEN: soft, non-tender, and no masses PELVIC: external genitalia normal, normal Bartholin's glands, urethra, Woodmoor's glands, no vulvar lesions, no cervical lesions, good vaginal support, physiologic discharge present, normal appearing perineal body and perianal region BIMANUAL: uterus normal size, shape and consistency, no adnexal masses, and non-tender RECTOVAGINAL: deferred. NEURO: alert and oriented x3,exam grossly non-focal EXTREMITIES: normal ASSESSMENT/PLAN: 1) Health maintenance: Pap/HPV up to date. Mammogram ordered at [facility] per patient request Nutrition, exercise and routine health maintenance exams reviewed. 2) Contraception: none. Contraceptive options reviewed and information provided. 3) Follow up one year or sooner as needed Bertram Quintana MD documented in this encounter [facility] 07-05-2023 Note Patient Outreach (IN TMMN) ZAINAB BAY ([id number]) 1980 F Date Time Provider Department 07/05/23 MICKY FREDERICK During your visit today, we recorded the following information about you: Allergies As of Date: 07/05/2023 Noted Allergy Reaction ADHESIVE 06/03/2021 16 - Unknown Date Reviewed: 09/06/2022 Reviewed by: Bertram Quintana MD - Fully Assessed Visit Diagnosis:Encounter for screening mammogram for breast cancer [Z12.31] Order(s):[facility] SCREENING [[id number]] Order #: [id number] FUTURE Prescriptions as of 07/10/2023 - Ferrous [...] section, ant*12/09/2021 08/02/2022 History of macrosomia in in prior pregna*12/09/2021 08/02/2022 Insulin controlled gestational diabetes mellitu*05/09/2022 08/02/2022 Anemia in [O99.019] 05/09/2022 08/02/2022 Encounter Status:Closed by JAKY, PRODUSER on 07/10/23 [facility] 06-23-2023 Miscellaneous Notes Formattin g of this note might be different from the original. Form signed by provider and faxed. Lexie Richmond RN Noted & will sign Bertram Quintana MD Received a fax from patient needing her Healthy Living Form signed by JAMES for her employer at [facility]. Patient last seen 08/2022 and has her annual exam with JAMES on 09/07/23. Form to JAMES to sign. Danya Rueda RN documented in this encounter [facility] 10-26-2022 Note HNO ID: [id number] Author: Danya Rueda RN Service: ? Author Type: ? Type: Progress Notes Filed: 10/26/2022 2:47 PM Note Text: Received lab results from [facility] - Please review. Scan on 10/26/2022 1:53 PM by External Provider: Miscellaneous Lab [facility] 10-26-2022 History of Presen t illness Narrative Received lab results from [facility] - Please review. Scan on 10/26/2022 1:53 PM by External Provider: Miscellaneous Lab documented in this encounter [facility] 09-06-2022 History of Presen t illness [...] Apgar1: 8 Apgar5: 9 Living: Living Zainab Bay is a 42 year old year old here for visit. Delivery Summary: ROS/ Recovery: Feeding: Breast feeding problems: None Menses since delivery: none Menstrual pattern prior to : Regular periods [place] since delivery: Not resumed Depression: denies symptoms [...] PACKAGE UNSPECIFIED ORAL SURGERY PROCEDURE, BY REPORT [place] teeth extracted FAMILY HISTORY Problem Relation Age [...] external genitalia normal, normal Bartholin's glands, urethra, Woodmoor's glands, no vulvar lesions, no cervical lesions, [...] H/o GDM - PP screening ordered at [facility] Bertram Quintana MD documented in this encounter [facility] 08-09-2022 Miscellaneous Notes Formattin g of this note might be different from the original. 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 Bernarda Henderson LPN FMLA return to work forms completed and placed on providers desk for signature. Bernarda Henderson LPN documented in this encounter [facility] 07-28-2022 Miscellaneous Notes Formattin g of this note might be different from the original. 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 Bernarda Henderson LPN [place] paperwork completed and placed on providers desk for signature. Bernarda Henderson LPN Received [facility] paperwork. Pt had c/s today. Will reach out to patient via [employer] for dates of leave. Bernarda Henderson LPN documented in this encounter [facility] 07-26-2022 History of Presen t illness Narrative Patient delivered via by Dr. Quintana on 07/26/22 at [facility]. See OB history. Comfort Claros RN documented in this encounter [facility] 07-22-2022 Miscellaneous Notes Formattin g of this note might be different from the original. KJ - No VB/LOF/ctxs. Reports good FM. A&P: Pre-op for repeat today. Informed consent signed today. GDM - BS overall normal per patient. Continue NPH at bedtime. Reviewed labor & FM precautions Bertram Quintana MD documented in this encounter [facility] 07-22-2022 Instructions Christine Higgins Ma - 07/22/2022 10:49 AM EST SEQUENTIAL SCREENINGS The [facility] offers sequential screenings for women who [...] It will require an appointment with our air conditioning technician. This is not an ultrasound performed [...] the above symptoms, contact our office at [phone] and ask to speak with a nurse. After hours, you can call doctors registry at [phone] OR call [facility] at [phone] and ask to have the doctor emotional disabilities teacher paged. If you consider this an emergency, dial 9-1-0 or go to your nearest emergency department. NEED HELP? Are you dealing with a violent or abusive relationship? Are you a victim of rape or sexual assult? Call [facility] ([facility] 24 hour Crisis Hotline: 457.585.1807 or 096-869-1435. MANUAL Your Guide to a Healthy manual is now on-line. Visit [email or web address] [email or web address] to download your free copy documented in this encounter [facility] 07-15-2022 Miscellaneous Notes Formattin g of [...] Labs: LFT's & bile acids ordered at [facility] to exclude cholestasis. Suspect itching is viral related. GDM - BS normal, continue NPH at bedtime Anemia - encouraged Fe & Regular PNV use Labor precautions reviewed, Kick counts reviewed. MOD - repeat Bertram Quintana MD documented in this encounter [facility] 07-15-2022 Imani Higgins Ma - 07/15/2022 8:55 AM EST SEQUENTIAL SCREENINGS The [facility] offers sequential screenings for women who [...] It will require an appointment with our air conditioning technician. This is not an ultrasound performed [...] the above symptoms, contact our office at [phone] and ask to speak with a nurse. After hours, you can call doctors registry at [phone] OR call [facility] at [phone] and ask to have the doctor emotional disabilities teacher paged. If you consider this an emergency, dial or go to your nearest emergency department. NEED HELP? Are you dealing with a violent or abusive relationship? Are you a victim of rape or sexual assult? Call [facility] ([place]) 24 hour Crisis Hotline: 432.105.6130 or 729-613-0644. MANUAL Your Guide to a Healthy manual is now on-line. Visit [email or web address] [email or web address] to download your free copy documented in this encounter [facility] 07-11-2022 Miscellaneous Notes Formattin g of this note might be different from the original. Spoke with charge nurse Cyndi on L&D. Cyndi said to have patient call and ask to speak with charge nurse instead of pathology secretary. Patient notified and will call today to schedule. Lexie Richmond RN I don't know. Usually sees KJ. I told her she didn't need one last week b/c had BPP but don't know why they won't schedule her. Fax new order is fine. Thanks. Tahmina Blackwood MD Pt calling and stated that she is having weekly NST at [facility], pt called this am and stated that she tried to call and schedule this for tomorrow and the L&D pathology secretary stated that we need to call to given permission to schedule this. Was an order already sent over? I printed off the order, refaxed it and then contacted L&D. Bernarda Henderson LPN documented in this encounter [facility] 07-06-2022 Miscellaneous Notes Formattin g of [...] prn GDMA2- bs log reviewed, excellent control Tahmina Blackwood M.D. documented in this encounter [facility] 07-06-2022 Instructions Charis Italia Ga - 07/06/2022 8:01 AM EST SEQUENTIAL SCREENINGS [facility] offers sequential screenings for women who [...] It will require an appointment with our air conditioning technician. This is not an ultrasound performed [...] the above symptoms, contact our office at [phone] and ask to speak with a nurse. After hours, you can call doctors registry at [phone] OR call [facility] at [phone] and ask to have the doctor emotional disabilities teacher paged. If you consider this an emergency, dial 9--1 or go to your nearest emergency department. NEED HELP? Are you dealing with a violent or abusive relationship? Are you a victim of rape or sexual assult? Call [facility] ([place]) 24 hour Crisis Hotline: 662.483.5351 or 948-254-1126. MANUAL Your Guide to a Healthy manual is now on-line. Visit [email or web address] [email or web address] to download your free copy documented in this encounter [facility] 06-27-2022 Miscellaneous Notes Formattin g of [...] schedule these herself because she was a [facility] employee. Even added on the fax cover sheet that patient was going to be calling to schedule weekly NSTs herself. Comfort Claros RN Patient 35w1d needs weekly NST's. Patient was told she could do them at [facility] because she works there. Patient called them and tried to set them up, but was told that our office needs to set them up. Patient last seen 06/23 and NST done on that day. Does order need to be faxed to L&D for NST's? Lexie Richmond RN documented in this encounter [facility] 06-23-2022 History of Presen t illness Narrative NST SUMMARY PROVIDER ASSESSMENT AND INTERPRETATION Zainab Bay is a 41 year old female, , who is at 34w4d with an CHHAYA of 07/31/2022, by Last Menstrual Period dating method. Indications for NST: AMA, Diabetes - Insulin Controlled, and Obesity Baseline: 130 Variability: Moderate Accelerations: Present 15 X 15 Decelerations: None Contractions: TOCO: None Interpretation: Category I and Reactive SIGNATURE: Angie Padilla APRN.CNM documented in this encounter [facility] 06-23-2022 Miscellaneous Notes Formattin g of this note might be different from the original. Zainab Bay is a 41 year old female who [...] in 1 week for NST (completing at [facility] when gets off work) and 2 weeks for follow up growth US and INA. Patient needs to be physician only patient due to GDM A2. Angie Padilla APRN.CNM documented in this encounter [facility] 06-23-2022 Instructions Aleah Lockwood Ma - 06/23/2022 1:49 PM EDT SEQUENTIAL SCREENINGS [facility] offers sequential screenings for women who [...] It will require an appointment with our air conditioning technician. This is not an ultrasound performed [...] the above symptoms, contact our office at [phone] and ask to speak with a nurse. After hours, you can call doctors registry at [phone] OR call [facility] at [phone] and ask to have the doctor emotional disabilities teacher paged. If you consider this an emergency, dial 9-1-9 or go to your nearest emergency department. NEED HELP? Are you dealing with a violent or abusive relationship? Are you a victim of rape or sexual assult? Call [facility] ([place]) 24 hour Crisis Hotline: 671.706.8203 or 558-429-7743. MANUAL Your Guide to a Healthy manual is now on-line. Visit [email or web address] [email or web address] to download your free copy documented in this encounter [facility] 06-13-2022 Miscellaneous Notes Formattin g of this note might be different from the original. Orders signed. Angie Padilla APRN.CNM Please file growth u/s order so patient can schedule. Comfort Claros RN ----- Message from Bere Mccauley MD sent at 06/12/2022 5:44 PM EDT ----- Add to record Needs repeat growth US 4 weeks documented in this encounter [facility] 06-13-2022 Miscellaneous Notes Formattin g of this note might be different from the original. 33w1d 05/12 Office note states to repeat CBC at 32 weeks. [facility] lab order to CP to sign. Danya Rueda RN documented in this encounter [facility] 06-10-2022 Miscellaneous Notes Formattin g of this note might be different from the original. Zainab Bay is a 41 year old female who presents at 32w5d for a routine visit. Just completed growth US with BPP. EFW 93%, MARIELLA normal at 16. BPP /8. Good movement. Denies any cramps or contractions. [...] Angie Padilla APRN.CNM documented in this encounter [facility] 06-10-2022 Instructions Aleah Lockwood Ma - 06/10/2022 1:03 PM EDT SEQUENTIAL SCREENINGS [facility] offers sequential screenings for women who [...] It will require an appointment with our air conditioning technician. This is not an ultrasound performed [...] the above symptoms, contact our office at [phone] and ask to speak with a nurse. After hours, you can call doctors registry at [phone] OR call [facility] at [phone] and ask to have the doctor emotional disabilities teacher paged. If you consider this an emergency, dial 04-28- or go to your nearest emergency department. NEED HELP? Are you dealing with a violent or abusive relationship? Are you a victim of rape or sexual assult? Call [facility] ([place]) 24 hour Crisis Hotline: 587.336.6606 or 730-861-5896. MANUAL Your Guide to a Healthy manual is now on-line. Visit [email or web address] [email or web address] to download your free copy documented in this encounter [facility] 06-02-2022 Miscellaneous Notes Formattin g of this note might be different from the original. Patient notified To increase bedtime NPH by 4 units for a total of 12 units at bedtime. Med list udated Typically taken right before going to bed or 8 hours prior to when she wakes up documented in this encounter [facility] 05-26-2022 Miscellaneous Notes Formattin g of this note might be different from the original. Orders signed. Angie Padilla APRN.CNM 30w4d Patient needing insulin needles sent to [facility] retail pharmacy. RX for insulin was sent yesterday without needles. Thank you. Requested Prescriptions Pending Prescriptions Disp Refills insulin needles, DISPOSABLE, 31 gauge x 5/16 30 Each 3 Si Each daily at bedtime. Danya Rueda RN documented in this encounter [facility] 05-25-2022 Miscellaneous Notes Formattin g of this note might be different from the original. SW- Pt doing well. No ctx, vb, lof. Good FM. GDM: BG log reviewed and starting NPH 8 units at bedtime. Growth US and NST's ordered. Scheduled to get flu shot with work. RTO 2 wks. Bere Mccauley DO documented in this encounter [facility] 05-25-2022 Instructions Dori Celeste MA - 05/25/2022 1:13 PM EDT SEQUENTIAL SCREENINGS [facility] offers sequential screenings for women who [...] It will require an appointment with our air conditioning technician. This is not an ultrasound performed [...] the above symptoms, contact our office at [phone] and ask to speak with a nurse. After hours, you can call doctors registry at [phone] OR call [facility] at [phone] and ask to have the doctor emotional disabilities teacher paged. If you consider this an emergency, dial 04-28- or go to your nearest emergency department. NEED HELP? Are you dealing with a violent or abusive relationship? Are you a victim of rape or sexual assult? Call [facility] ([place]) 24 hour Crisis Hotline: 107.296.8795 or 412-636-8672. MANUAL Your Guide to a Healthy manual is now on-line. Visit [email or web address] [email or web address] to download your free copy documented in this encounter [facility] 05-12-2022 Miscellaneous Notes Formattin g of [...] Bere Mccauley DO documented in this encounter [facility] 05-12-2022 History of Presen t illness Narrative Patient identified by name and date of . Zainab Bay presents today for a vaccination of Tdap. Patient denies an allergy to latex: yes Patient denies a severe (life-threatening) allergy to a previous dose of Tdap, DTP, DTaP, DT or Td vaccine. Yes Patient denies history of epilepsy or neurological problems: Yes Patient is afebrile and denies being moderately or severely ill: Yes Patient denies history of Guillain-Carson Syndrome (a severe paralytic illness): Yes Tdap Adacel injection was given without incident. See immunizations for details of immunizations administered today. VIS sheet provided: Yes Provider Bere Mccauley DO was present in office at time of injection. Dori Celeste MA documented in this encounter [facility] 05-12-2022 Instructions Dori Celeste MA - 05/12/2022 8:32 AM EDT SEQUENTIAL SCREENINGS [facility] offers sequential screenings for women who [...] It will require an appointment with our air conditioning technician. This is not an ultrasound performed [...] the above symptoms, contact our office at [phone] and ask to speak with a nurse. After hours, you can call doctors registry at [phone] OR call [facility] at [phone] and ask to have the doctor emotional disabilities teacher paged. If you consider this an emergency, dial -8 or go to your nearest emergency department. NEED HELP? Are you dealing with a violent or abusive relationship? Are you a victim of rape or sexual assult? Call [facility] ([facility] 24 hour Crisis Hotline: 577.287.6872 or 739-562-7186. MANUAL Your Guide to a Healthy manual is now on-line. 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 Then we will send to KJ to file. Also let her know about anemia Needs iron for anemia. GCT is 193 which indicates GDM. Does not need a 3hr. 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 Bertram Quintana MD 28w1d Received CBC and 1 hour glucose results from [facility]. Please review. Results and order for 3 hour glucose test to KJ to sign if appropriate. Patient does have h/o gestational diabetes with previous . Comfort Claros RN documented in this encounter [facility] documented as of this encounter (statuses as of 08/09/2022) [facility] History of Past illness Narrative* Problem [...] 149. 3 hr GTT ordered. 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 TKRN Supervision of other normal 11/13/2018 12/04/2018 Overview: 11/13/18 - need to discuss CF screening - Bertram Quintana MD Female infertility 08/01/2018 11/13/2018 Overview: Added automatically from request for surgery [id number] Encounter for supervision of normal first in [...] her NOB is scheduled 06/08/[address] Ugalde ordered nuchal ultrasound. TKRN Female infertility 09/24/2015 12/27/2016 Infertility counseling 02/17/2015 6 documented as of this encounter (statuses as of 09/06/2022) [facility] History of Past illness Narrative* Problem [...] 07/18/2019 Overview: 05/21/19 Hgb 11.7 Eleanor Bryant APRN.ANGELNIA 04/12/19 Hgb 10.2 Fe sulfate 325 mg [...] I have given patient contact information to [employer] to check on insurance coverage. TKRN Supervision of other normal 11/13/2018 12/04/2018 Overview: 11/13/18 - need to discuss CF screening - Bertram Quintana MD Female infertility 08/01/2018 11/13/2018 Overview: Added automatically from request for surgery [id number] Encounter for supervision of normal first in [...] her NOB is scheduled 06/08/[address] Ugalde ordered nuchal ultrasound. TKRN Female infertility 09/24/2015 12/27/2016 Infertility counseling 02/17/2015 6 documented as of this encounter (statuses as of 10/26/2022) [facility] History of Past illness Narrative* Problem [...] 07/18/2019 Overview: 05/21/19 Hgb 11.7 Eleanor Bryant APRN.ASSISTANT PROFESSOR OF RADIOLOGY 04/12/19 Hgb 10.2 Fe sulfate 325 mg daily on Mondays, Wednesdays and Fridays. Repeat CBC in one month. Eleanor Bryant APRN.ASSISTANT PROFESSOR OF RADIOLOGY Abnormal glucose in , antepartum 04/10/2019 07/18/2019 Overview: 04/09/19 1 hr GCT 149. 3 hr GTT ordered. 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 TKRN Supervision of other normal 11/13/2018 12/04/2018 Overview: 11/13/18 - need to discuss CF screening - Bertram Quintana MD Female infertility 08/01/2018 9 Overview: Added automatically from request for surgery [id number] Encounter for supervision of normal first in [...] her NOB is scheduled 06/08/[address] Ugalde ordered nuchal ultrasound. TKRN Female infertility 09/24/2015 7 Infertility counseling 02/17/201510/24 documented as of this encounter (statuses as of 06/23/2023) [place] [address]-12-2022 History of Past illness Narrative* Problem Noted [...] 07/18/2019 Overview: 05/21/19 Hgb 11.7 Eleanor Bryant APRN.ASSISTANT PROFESSOR OF RADIOLOGY 04/12/19 Hgb 10.2 Fe sulfate 325 mg daily on Mondays, Wednesdays and Fridays. Repeat CBC in one month. Eleanor Bryant APRN.ASSISTANT PROFESSOR OF RADIOLOGY Abnormal glucose in , antepartum 04/10/2019 07/18/2019 Overview: 04/09/19 1 hr GCT 149. 3 hr GTT ordered. 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 TKRN Supervision of other normal 11/13/2018 12/04/2018 Overview: 11/13/18 - need to discuss CF screening - Bertram Quintana MD Female infertility 08/01/2018 9 Overview: Added automatically from request for surgery [id number] Encounter for supervision of normal first in [...] her NOB is scheduled 06/08/[address] Ugalde ordered nuchal ultrasound. TKRN Female infertility 09/24/2015 7 Infertility counseling 02/17/201510/24 documented as of this encounter (statuses as of 06/26/2023) [facility] History of Past illness Narrative* Problem [...] 07/18/2019 Overview: 05/21/19 Hgb 11.7 Eleanor Bryant APRN.ASSISTANT PROFESSOR OF RADIOLOGY 04/12/19 Hgb 10.2 Fe sulfate 325 mg daily on Mondays, Wednesdays and Fridays. Repeat CBC in one month. Eleanor Bryant APRN.ASSISTANT PROFESSOR OF RADIOLOGY Abnormal glucose in , antepartum 04/10/2019 07/18/2019 Overview: 04/09/19 1 hr GCT 149. 3 hr GTT ordered. 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 TKRN Supervision of other normal 11/13/2018 12/04/2018 Overview: 11/13/18 - need to discuss CF screening - Bertram Quintana MD Female infertility 08/01/2018 9 Overview: Added automatically from request for surgery [id number] Encounter for supervision of normal first in [...] her NOB is scheduled 06/08/[address] Ugalde ordered nuchal ultrasound. TKRN Female infertility 09/24/2015 7 Infertility counseling 02/17/201510/24 documented as of this encounter (statuses as of 07/10/2023) [facility] History of Past illness Narrative* Problem [...] 07/18/2019 Overview: 05/21/19 Hgb 11.7 Eleanor Bryant APRN.ASSISTANT PROFESSOR OF RADIOLOGY 04/12/19 Hgb 10.2 Fe sulfate 325 mg daily on Mondays, Wednesdays and Fridays. Repeat CBC in one month. Eleanor Bryant APRN.ASSISTANT PROFESSOR OF RADIOLOGY Abnormal glucose in , antepartum 04/10/2019 07/18/2019 Overview: 04/09/19 1 hr GCT 149. 3 hr GTT ordered. 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 TKRN Supervision of other normal 11/13/2018 12/04/2018 Overview: 11/13/18 - need to discuss CF screening - Bertram Quintana MD Female infertility 08/01/2018 9 Overview: Added automatically from request for surgery [id number] Encounter for supervision of normal first in [...] her NOB is scheduled 06/08/[address] Ugalde ordered nuchal ultrasound. TKRN Female infertility 09/24/2015 7 Infertility counseling 02/17/201510/24 documented as of this encounter (statuses as of 09/29/2023) [facility] Miscellaneous Notes* Quick Notes - Tahmina Blackwood MD - 04/12/2022 8:53 AM EDT RR- Doing well. No VB/LOF. Good FM. NO ctxs. Mild edema. Plans repeat c/s. F/u in 4 weeks or prn. 28 week lab slip given, will do at [facility]. Tahmina Blackwood MD [facility] Instructions* Patient Instructions* Charis Echavarria Ma - 04/12/2022 8:33 AM EDT SEQUENTIAL SCREENINGS [facility] offers sequential screenings for women who [...] testing. It will require an appointment withour air conditioning technician. This is not an ultrasound performed [...] the above symptoms, contact our office at [phone] and ask to speak with anurse. After hours, you can call doctors registry at [phone] OR call [facility] at [phone] ask to have the doctor emotional disabilities teacher paged. If you consider this an emergency, dial 2-0-9 or go to your nearest emergency department. NEED HELP? Are you dealing with a violent or abusive relationship? Are you a victim of rape or sexual assult? Call [facility] ([place]) 24 hour Crisis Hotline: 805.775.2465 or 980-951-2219. MANUAL Your Guide to a Healthy manual is now on-line. Visit [email or web address] to download your free copy [facility] History of Present illness Narrative* Dori Fitzgerald MD - 03/11/2022 5:20 PM EDT Patient here for routine anatomy scan. See ultrasound report for details. Dori Fitzgerald MD [facility] Miscellaneous Notes* Quick Notes - Angie Padilla APRN.CNM - 03/11/2022 3:20 PM EDT Zainab Bay is a 41 year old female who [...] needed. Angie Padilla APRN.CNM [facility] Instructions* Patient Instructions* Cande Downey MA - 03/11/2022 2:00 PM EDT SEQUENTIAL SCREENINGS [facility] offers sequential screenings for women who [...] testing. It will require an appointment withour air conditioning technician. This is not an ultrasound performed [...] the above symptoms, contact our office at [phone] and ask to speak with anurse. After hours, you can call doctors registry at [phone] OR call [facility] at [phone] ask to have the doctor emotional disabilities teacher paged. If you consider this an emergency, dial -7 or go to your nearest emergency department. NEED HELP? Are you dealing with a violent or abusive relationship? Are you a victim of rape or sexual assult? Call [facility] ([facility] 24 hour Crisis Hotline: 250.981.1274 or 021-216-4532. MANUAL Your Guide to a Healthy manual is now on-line. Visit [email or web address] to download your free copy [facility] Miscellaneous Notes* Telephone Encounter - KRYS Chandler - 03/02/2022 2:39 PM EDT Ms. Bay returned my phone call. Informed her of [...] - 03/02/2022 1:39 PM EDT Called Ms. Bay and left a message, stating that I was calling with results to discuss. Asked her to call me back at [phone]. Plan on discussing her abnormal quad screen in relation to her normal NIPT. Cande Bond CGC [facility] Miscellaneous Notes* Quick Notes - Angie Padilla APRN.CNM - 02/17/2022 4:45 PM EDT Zainab Bay is a 41 year old female who presents at 16w5d Estimated Date of Delivery: 07/31/22 fora routine visit. No movement felt to date. Denies headache, visual changes, chest pain, shortness of breath, vaginal bleeding, leakage of fluid, or dysuria. Feeling well, no complaints. Will have AFP lab drawn at [facility]. Size equal to dates. PTL/ Bleeding precautions reviewed. RTC in 4 weeks foranatomy US and INA. Angie Padilla APRN.CNM [facility] Instructions* Patient Instructions* Dori Celeste MA - 02/17/2022 4:31 PM EDT SEQUENTIAL SCREENINGS [facility] offers sequential screenings for women who [...] testing. It will require an appointment withour air conditioning technician. This is not an ultrasound performed [...] the above symptoms, contact our office at [phone] and ask to speak with anurse. After hours, you can call doctors registry at [phone] OR call [facility] at [phone] ask to have the doctor emotional disabilities teacher paged. If you consider this an emergency, dial 9-- or go to your nearest emergency department. NEED HELP? Are you dealing with a violent or abusive relationship? Are you a victim of rape or sexual assult? Call [facility] ([place]) 24 hour Crisis Hotline: 247.152.8597 or 148-598-2282. MANUAL Your Guide to a Healthy manual is now on-line. Visit [email or web address] to download your free copy [facility] Miscellaneous Notes* Telephone Encounter - Klarissa Flower RN - 01/25/2022 3:51 PM EDT Called Zainab Bay and identified by name and date of . Zainab Bay was informed of negative Non-Invasive Testing (NIPT) results for Trisomy 21, Trisomy 18 and Trisomy 13. Patient was also notified of the result of no sex chromosome aneuploidy detected. Patient wishes to know sex, which is reported as: male. Reviewed with patient Zainab Bay that NIPT is considered screening and not diagnostic, so this result greatly reduces, but does not eliminate the chance that the fetus could have trisomy 21, trisomy 18, trisomy 13 or sex chromosome aneuploidy. Zainab Bay indicated understanding this information. Patient advised to follow up with AFP neural tube defect screening (blood draw) at 16-18 weeks gestation and 18-20 week detailed anatomy ultrasound. Also instructed to follow-up with Primary OB Provider. Klarissa Flower RN [facility] Miscellaneous Notes* Quick Notes - Bertram Quintana MD - 01/18/2022 4:23 PM EDT KJ - No VB/LOF/ctxs. Denies concerns. A&P: NT with NIPT today Anatomy US ordered MOD - repeat Bertram Quintana MD [facility] Instructions* Patient Instructions* Christine Higgins Ma - 01/18/2022 3:56 PM EDT SEQUENTIAL SCREENINGS [facility] offers sequential screenings for women who [...] testing. It will require an appointment withour air conditioning technician. This is not an ultrasound performed [...] the above symptoms, contact our office at [phone] and ask to speak with anurse. After hours, you can call doctors registry at [phone] OR call [facility] at [phone] ask to have the doctor emotional disabilities teacher paged. If you consider this an emergency, dial 9-0- or go to your nearest emergency department. NEED HELP? Are you dealing with a violent or abusive relationship? Are you a victim of rape or sexual assult? Call [facility] [place] ([facility] 24 hour Crisis Hotline: 582.118.5826 or 120-645-3385. MANUAL Your Guide to a Healthy manual is now on-line. 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 Bertram Quintana MD documented in this encounterSam[facility]04[facility]22 Instructions* Patient Instructions* Christine Higgins Ma - 12/21/2021 9:54 AM EDT Please select the following link to access the [facility] Your Guide to a Healthy . [email or web address] documented in this encounterSam[facility]04-14-2022 Miscellaneous Notes* Quick Notes - Melina [...] I have given patient contact information to [employer] to check on insurance coverage. Patient has a history of gestational diabetes with her last . Last hemoglobin A1c was done June 2021. Patient will plan on early scree rosalinda. Patient has a history of 2 C-sections. She desires a repeat . Patient has a history of macrosomia in prior . Patient declines tubal ligation.Melina Macdonald RN documented in this encounterSam[facility]04-14-[facility]22 History of Present illness Narrative* Melina [...] Living: None, Comments: None documented in this encounterSam[facility]04-[facility]22 Miscellaneous Notes* Telephone Encounter - Comfort [...] history. Danya Rueda RN documented in this encounterSam[facility]10-[facility]21 History of Past illness Narrative* Problem Noted Date Resolved Date History of gestational diabetes 06/22/2021 12/21/2021 Polyhydramnios in third trimester 04/24/2019 07/18/2019 Diet controlled gestational diabetes mellitus (GDM) in third trimester 04/16/2019 07/18/2019 Antepartum anemia 04/10/2019 07/18/2019 Overview: 05/21/19 Hgb 11.7 Eleanor Bryant APRN.ASSISTANT PROFESSOR OF RADIOLOGY 04/12/19 Hgb 10.2 Fe sulfate 325 mg daily on Mondays, Wednesdays and Fridays. Repeat CBC in one month. Eleanor Bryant APRN.ASSISTANT PROFESSOR OF RADIOLOGY Abnormal glucose in , antepartum 201807/18/2019 Overview: 04/09/19 1 hr GCT 149. 3 hr GTT ordered. 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 Ugalde ordered nuchal ultrasound. TKRN Female infertility 09/24/2015 12/27/2016 Infertility counseling 02/17/2015 6 documented as of this encounter (statuses as of 12/21/2021) [facility] History of Past illness Narrative* Problem Noted Date Resolved Date History of gestational diabetes 06/22/2021 12/21/2021 Polyhydramnios in third trimester 04/24/2019 07/18/2019 Diet controlled gestational diabetes mellitus (GDM) in third trimester 04/16/2019 07/18/2019 Antepartum anemia 04/10/2019 07/18/2019 Overview: 05/21/19 Hgb 11.7 Eleanor Bryant APRN.ASSISTANT PROFESSOR OF RADIOLOGY 04/12/19 Hgb 10.2 Fe sulfate 325 mg daily on Mondays, Wednesdays and Fridays. Repeat CBC in one month. Eleanor Bryant APRN.ASSISTANT PROFESSOR OF RADIOLOGY Abnormal glucose in , antepartum 201807/18/2019 Overview: 04/09/19 1 hr GCT 149. 3 hr GTT ordered. 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 Ugalde ordered nuchal ultrasound. TKRN Female infertility 09/24/2015 12/27/2016 Infertility counseling 02/17/2015 6 documented as of this encounter (statuses as of 12/23/2021) [facility] of Past illness Narrative* Problem Noted Date Resolved Date History of gestational diabetes 06/22/2021 12/21/2021 Polyhydramnios in third trimester 04/24/2019 07/18/2019 Diet controlled gestational diabetes mellitus (GDM) in third trimester 04/16/2019 07/18/2019 Antepartum anemia 04/10/2019 07/18/2019 Overview: 05/21/19 Hgb 11.7 Eleanor Bryant APRN.ASSISTANT PROFESSOR OF RADIOLOGY 04/12/19 Hgb 10.2 Fe sulfate 325 mg daily on Mondays, Wednesdays and Fridays. Repeat CBC in one month. Eleanor Bryant APRN.ASSISTANT PROFESSOR OF RADIOLOGY Abnormal glucose in , antepartum 201807/18/2019 Overview: 04/09/19 1 hr GCT 149. 3 hr GTT ordered. 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 Ugalde ordered nuchal ultrasound. TKRN Female infertility 09/24/2015 12/27/2016 Infertility counseling 02/17/2015 6 documented as of this encounter (statuses as of 01/18/2022) [facility] of Past illness Narrative* Problem Noted Date Resolved Date History of gestational diabetes 06/22/2021 12/21/2021 Polyhydramnios in third trimester 04/24/2019 07/18/2019 Diet controlled gestational diabetes mellitus (GDM) in third trimester 04/16/2019 07/18/2019 Antepartum anemia 04/10/2019 07/18/2019 Overview: 05/21/19 Hgb 11.7 Eleanor Bryant APRN.ASSISTANT PROFESSOR OF RADIOLOGY 04/12/19 Hgb 10.2 Fe sulfate 325 mg daily on Mondays, Wednesdays and Fridays. Repeat CBC in one month. Eleanor Bryant APRN.ASSISTANT PROFESSOR OF RADIOLOGY Abnormal glucose in , antepartum 201807/18/2019 Overview: 04/09/19 1 hr GCT 149. 3 hr GTT ordered. 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 Ugalde ordered nuchal ultrasound. TKRN Female infertility 09/24/2015 12/27/2016 Infertility counseling 02/17/2015 6 documented as of this encounter (statuses as of 01/18/2022) [facility] of Past illness Narrative* Problem Noted Date Resolved Date History of gestational diabetes 06/22/2021 12/21/2021 Polyhydramnios in third trimester 04/24/2019 07/18/2019 Diet controlled gestational diabetes mellitus (GDM) in third trimester 04/16/2019 07/18/2019 Antepartum anemia 04/10/2019 07/18/2019 Overview: 05/21/19 Hgb 11.7 Eleanor Bryant APRN.ASSISTANT PROFESSOR OF RADIOLOGY 04/12/19 Hgb 10.2 Fe sulfate 325 mg daily on Mondays, Wednesdays and Fridays. Repeat CBC in one month. Eleanor Bryant APRN.ANGELINA Abnormal glucose in , antepartum 201807/18/2019 Overview: 04/09/19 1 hr GCT 149. 3 hr GTT ordered. 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 Ugalde ordered nuchal ultrasound. TKRN Female infertility 09/24/2015 12/27/2016 Infertility counseling 02/17/2015 6 documented as of this encounter (statuses as of 01/25/2022) [facility] of Past illness Narrative* Problem Noted Date Resolved Date History of gestational diabetes 06/22/2021 12/21/2021 Polyhydramnios in third trimester 04/24/2019 07/18/2019 Diet controlled gestational diabetes mellitus (GDM) in third trimester 04/16/2019 07/18/2019 Antepartum anemia 04/10/2019 07/18/2019 Overview: 05/21/19 Hgb 11.7 Eleanor Bryant APRN.ASSISTANT PROFESSOR OF RADIOLOGY 04/12/19 Hgb 10.2 Fe sulfate 325 mg daily on Mondays, Wednesdays and Fridays. Repeat CBC in one month. Eleanor Bryant APRN.ASSISTANT PROFESSOR OF RADIOLOGY Abnormal glucose in , antepartum 201807/18/2019 Overview: 04/09/19 1 hr GCT 149. 3 hr GTT ordered. 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 Ugalde ordered nuchal ultrasound. TKRN Female infertility 09/24/2015 12/27/2016 Infertility counseling 02/17/2015 6 documented as of this encounter (statuses as of 02/18/2022) [facility] of Past illness Narrative* Problem [...] 149. 3 hr GTT ordered. 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 Ugalde ordered nuchal ultrasound. TKRN Female infertility 09/24/2015 12/27/2016 Infertility counseling 02/17/2015 6 documented as of this encounter (statuses as of 03/02/2022) [facility] of Past illness Narrative* Problem [...] 149. 3 hr GTT ordered. 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 Ugalde ordered nuchal ultrasound. TKRN Female infertility 09/24/2015 12/27/2016 Infertility counseling 02/17/2015 6 documented as of this encounter (statuses as of 03/11/2022) [facility] illness Narrative* Problem Noted Date Resolved Date History of gestational diabetes 06/22/2021 12/21/2021 Polyhydramnios in third trimester 04/24/2019 07/18/2019 Diet controlled gestational diabetes mellitus (GDM) in third trimester 04/16/2019 07/18/2019 Antepartum anemia 04/10/2019 07/18/2019 Overview: 05/21/19 Hgb 11.7 Eleanor Bryant APRN.ASSISTANT PROFESSOR OF RADIOLOGY 04/12/19 Hgb 10.2 Fe sulfate 325 mg daily on Mondays, Wednesdays and Fridays. Repeat CBC in one month. Eleanor Bryant APRN.ASSISTANT PROFESSOR OF RADIOLOGY Abnormal glucose in , antepartum 201807/18/2019 Overview: [...] Overview: Added automatically from request for surgery [id number] Encounter for supervision of normal first in [...] her NOB is scheduled 06/08/[address] Ugalde ordered nuchal ultrasound. TKRN Female infertility 09/24/2015 12/27/2016 Infertility counseling 02/17/2015 6 documented as of this encounter (statuses as of 03/11/2022) [facility] Past illness Narrative* Problem [...] Repeat CBC in one month. Eleanor Bryant APRN.ASSISTANT PROFESSOR OF RADIOLOGY Abnormal glucose in , antepartum 201807/18/2019 Overview: 04/09/19 1 hr GCT 149. 3 hr GTT ordered. 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 Ugalde ordered nuchal ultrasound. TKRN Female infertility 09/24/2015 12/27/2016 Infertility counseling 02/17/2015 6 documented as of this encounter (statuses as of 04/12/2022) [facility] illness Narrative* Problem Noted Date Resolved Date History of gestational diabetes 06/22/2021 12/21/2021 Polyhydramnios in third trimester 04/24/2019 07/18/2019 Diet controlled gestational diabetes mellitus (GDM) in third trimester 04/16/2019 07/18/2019 Antepartum anemia 04/10/2019 07/18/2019 Overview: 05/21/19 Hgb 11.7 Eleanor Bryant APRN.ASSISTANT PROFESSOR OF RADIOLOGY 04/12/19 Hgb 10.2 Fe sulfate 325 mg daily on Mondays, Wednesdays and Fridays. Repeat CBC in one month. Eleanor Bryant APRN.ASSISTANT PROFESSOR OF RADIOLOGY Abnormal glucose in , antepartum 201807/18/2019 Overview: 04/09/19 1 hr GCT 149. 3 hr GTT ordered. 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 Ugalde ordered nuchal ultrasound. TKRN Female infertility 09/24/2015 12/27/2016 Infertility counseling 02/17/2015 6 documented as of this encounter (statuses as of 05/09/2022) [facility] Narrative* Problem Noted Date Resolved Date History of gestational diabetes 06/22/2021 12/21/2021 Polyhydramnios in third trimester 04/24/2019 07/18/2019 Diet controlled gestational diabetes mellitus (GDM) in third trimester 04/16/2019 07/18/2019 Antepartum anemia 04/10/2019 07/18/2019 Overview: 05/21/19 Hgb 11.7 Eleanor Bryant APRN.ASSISTANT PROFESSOR OF RADIOLOGY 04/12/19 Hgb 10.2 Fe sulfate 325 mg daily on Mondays, Wednesdays and Fridays. Repeat CBC in one month. Eleanor Bryant APRN.ASSISTANT PROFESSOR OF RADIOLOGY Abnormal glucose in , antepartum 201807/18/2019 Overview: 04/09/19 1 hr GCT 149. 3 hr GTT ordered. 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 Ugalde ordered nuchal ultrasound. TKRN Female infertility 09/24/2015 12/27/2016 Infertility counseling 02/17/2015 6 documented as of this encounter (statuses as of 05/12/2022) [facility] Narrative* Problem Noted Date Resolved Date History of gestational diabetes 06/22/2021 12/21/2021 Polyhydramnios in third trimester 04/24/2019 07/18/2019 Diet controlled gestational diabetes mellitus (GDM) in third trimester 04/16/2019 07/18/2019 Antepartum anemia 04/10/2019 07/18/2019 Overview: 05/21/19 Hgb 11.7 Eleanor Bryant APRN.ASSISTANT PROFESSOR OF RADIOLOGY 04/12/19 Hgb 10.2 Fe sulfate 325 mg daily on Mondays, Wednesdays and Fridays. Repeat CBC in one month. Eleanor Bryant APRN.ASSISTANT PROFESSOR OF RADIOLOGY Abnormal glucose in , antepartum 201807/18/2019 Overview: 04/09/19 1 hr GCT 149. 3 hr GTT ordered. 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 Ugalde ordered nuchal ultrasound. TKRN Female infertility 09/24/2015 12/27/2016 Infertility counseling 02/17/2015 6 documented as of this encounter (statuses as of 05/26/2022) [facility] Narrative* Problem Noted Date Resolved Date History of gestational diabetes 06/22/2021 12/21/2021 Polyhydramnios in third trimester 04/24/2019 07/18/2019 Diet controlled gestational diabetes mellitus (GDM) in third trimester 04/16/2019 07/18/2019 Antepartum anemia 04/10/2019 07/18/2019 Overview: 05/21/19 Hgb 11.7 Eleanor Bryant APRN.ASSISTANT PROFESSOR OF RADIOLOGY 04/12/19 Hgb 10.2 Fe sulfate 325 mg daily on Mondays, Wednesdays and Fridays. Repeat CBC in one month. Eleanor Bryant APRN.ASSISTANT PROFESSOR OF RADIOLOGY Abnormal glucose in , antepartum 201807/18/2019 Overview: 04/09/19 1 hr GCT 149. 3 hr GTT ordered. 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 Ugalde ordered nuchal ultrasound. TKRN Female infertility 09/24/2015 12/27/2016 Infertility counseling 02/17/2015 6 documented as of this encounter (statuses as of 06/02/2022) [facility] Narrative* Problem Noted Date Resolved Date History of gestational diabetes 06/22/2021 12/21/2021 Polyhydramnios in third trimester 04/24/2019 07/18/2019 Diet controlled gestational diabetes mellitus (GDM) in third trimester 04/16/2019 07/18/2019 Antepartum anemia 04/10/2019 07/18/2019 Overview: 05/21/19 Hgb 11.7 Eleanor Bryant APRN.ASSISTANT PROFESSOR OF RADIOLOGY 04/12/19 Hgb 10.2 Fe sulfate 325 mg daily on Mondays, Wednesdays and Fridays. Repeat CBC in one month. Eleanor Bryant APRN.ASSISTANT PROFESSOR OF RADIOLOGY Abnormal glucose in , antepartum 201807/18/2019 Overview: 04/09/19 1 hr GCT 149. 3 hr GTT ordered. 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 Ugalde ordered nuchal ultrasound. TKRN Female infertility 09/24/2015 12/27/2016 Infertility counseling 02/17/2015 6 documented as of this encounter (statuses as of 06/02/2022) [facility] Narrative* Problem Noted Date Resolved Date History of gestational diabetes 06/22/2021 12/21/2021 Polyhydramnios in third trimester 04/24/2019 07/18/2019 Diet controlled gestational diabetes mellitus (GDM) in third trimester 04/16/2019 07/18/2019 Antepartum anemia 04/10/2019 07/18/2019 Overview: 05/21/19 Hgb 11.7 Eleanor Bryant APRN.ASSISTANT PROFESSOR OF RADIOLOGY 04/12/19 Hgb 10.2 Fe sulfate 325 mg daily on Mondays, Wednesdays and Fridays. Repeat CBC in one month. Eleanor Bryant APRN.ASSISTANT PROFESSOR OF RADIOLOGY Abnormal glucose in , antepartum 201807/18/2019 Overview: 04/09/19 1 hr GCT 149. 3 hr GTT ordered. 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 Ugalde ordered nuchal ultrasound. TKRN Female infertility 09/24/2015 12/27/2016 Infertility counseling 02/17/2015 6 documented as of this encounter (statuses as of 06/10/2022) [facility] Narrative* Problem Noted Date Resolved Date History of gestational diabetes 06/22/2021 12/21/2021 Polyhydramnios in third trimester 04/24/2019 07/18/2019 Diet controlled gestational diabetes mellitus (GDM) in third trimester 04/16/2019 07/18/2019 Antepartum anemia 04/10/2019 07/18/2019 Overview: 05/21/19 Hgb 11.7 Eleanor Bryant APRN.ASSISTANT PROFESSOR OF RADIOLOGY 04/12/19 Hgb 10.2 Fe sulfate 325 mg daily on Mondays, Wednesdays and Fridays. Repeat CBC in one month. Eleanor Bryant APRN.ASSISTANT PROFESSOR OF RADIOLOGY Abnormal glucose in , antepartum 201807/18/2019 Overview: 04/09/19 1 hr GCT 149. 3 hr GTT ordered. 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 Ugalde ordered nuchal ultrasound. TKRN Female infertility 09/24/2015 12/27/2016 Infertility counseling 02/17/2015 6 documented as of this encounter (statuses as of 06/10/2022) [facility] Narrative* Problem Noted Date Resolved Date History of gestational diabetes 06/22/2021 12/21/2021 Polyhydramnios in third trimester 04/24/2019 07/18/2019 Diet controlled gestational diabetes mellitus (GDM) in third trimester 04/16/2019 07/18/2019 Antepartum anemia 04/10/2019 07/18/2019 Overview: 05/21/19 Hgb 11.7 Eleanor Bryant APRN.ASSISTANT PROFESSOR OF RADIOLOGY 04/12/19 Hgb 10.2 Fe sulfate 325 mg daily on Mondays, Wednesdays and Fridays. Repeat CBC in one month. Eleanor Bryant APRN.ASSISTANT PROFESSOR OF RADIOLOGY Abnormal glucose in , antepartum 201807/18/2019 Overview: 04/09/19 1 hr GCT 149. 3 hr GTT ordered. 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 Ugalde ordered nuchal ultrasound. TKRN Female infertility 09/24/2015 12/27/2016 Infertility counseling 02/17/2015 6 documented as of this encounter (statuses as of 06/13/2022) [facility] Narrative* Problem Noted Date Resolved Date History of gestational diabetes 06/22/2021 12/21/2021 Polyhydramnios in third trimester 04/24/2019 07/18/2019 Diet controlled gestational diabetes mellitus (GDM) in third trimester 04/16/2019 07/18/2019 Antepartum anemia 04/10/2019 07/18/2019 Overview: 05/21/19 Hgb 11.7 Eleanor Bryant APRN.ASSISTANT PROFESSOR OF RADIOLOGY 04/12/19 Hgb 10.2 Fe sulfate 325 mg daily on Mondays, Wednesdays and Fridays. Repeat CBC in one month. Eleanor Bryant APRN.ASSISTANT PROFESSOR OF RADIOLOGY Abnormal glucose in , antepartum 201807/18/2019 Overview: 04/09/19 1 hr GCT 149. 3 hr GTT ordered. 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 Ugalde ordered nuchal ultrasound. TKRN Female infertility 09/24/2015 12/27/2016 Infertility counseling 02/17/2015 6 documented as of this encounter (statuses as of 06/13/2022) [facility] Narrative* Problem [...] Overview: Added automatically from request for surgery [id number] Encounter for supervision of normal first in [...] her NOB is scheduled 06/08/[address] Ugalde ordered nuchal ultrasound. TKRN Female infertility 09/24/2015 12/27/2016 Infertility counseling 02/17/2015 6 documented as of this encounter (statuses as of 06/23/2022) [facility] Narrative* Problem [...] 149. 3 hr GTT ordered. 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 Ugalde ordered nuchal ultrasound. TKRN Female infertility 09/24/2015 12/27/2016 Infertility counseling 02/17/2015 6 documented as of this encounter (statuses as of 06/27/2022) [facility] Narrative* Problem Noted Date Resolved Date History of gestational diabetes 06/22/2021 12/21/2021 Polyhydramnios in third trimester 04/24/2019 07/18/2019 Diet controlled gestational diabetes mellitus (GDM) in third trimester 04/16/2019 07/18/2019 Antepartum anemia 04/10/2019 07/18/2019 Overview: 05/21/19 Hgb 11.7 Eleanor Bryant APRN.ASSISTANT PROFESSOR OF RADIOLOGY 04/12/19 Hgb 10.2 Fe sulfate 325 mg [...] Overview: Added automatically from request for surgery [id number] Encounter for supervision of normal first in [...] her NOB is scheduled 06/08/[address] Ugalde ordered nuchal ultrasound. TKRN Female infertility 09/24/2015 12/27/2016 Infertility counseling 02/17/2015 6 documented as of this encounter (statuses as of 07/06/2022) [facility] History of Past illness Narrative* Problem [...] Overview: Added automatically from request for surgery [id number] Encounter for supervision of normal first in [...] her NOB is scheduled 06/08/[address] Ugalde ordered nuchal ultrasound. TKRN Female infertility 09/24/2015 12/27/2016 Infertility counseling 02/17/2015 6 documented as of this encounter (statuses as of 07/06/2022) [facility] History of Past illness Narrative* Problem Noted Date Resolved Date History of gestational diabetes 06/22/2021 12/21/2021 Polyhydramnios in third trimester 04/24/2019 07/18/2019 Diet controlled gestational diabetes mellitus (GDM) in third trimester 04/16/2019 07/18/2019 Antepartum anemia 04/10/2019 07/18/2019 Overview: 05/21/19 Hgb 11.7 Eleanor Bryant APRN.ASSISTANT PROFESSOR OF RADIOLOGY 04/12/19 Hgb 10.2 Fe sulfate 325 mg daily on Mondays, Wednesdays and Fridays. Repeat CBC in one month. Eleanor Bryant APRN.ASSISTANT PROFESSOR OF RADIOLOGY Abnormal glucose in , antepartum 201807/18/2019 Overview: 04/09/19 1 hr GCT 149. 3 hr GTT ordered. 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 Ugalde ordered nuchal ultrasound. TKRN Female infertility 09/24/2015 12/27/2016 Infertility counseling 02/17/2015 6 documented as of this encounter (statuses as of 07/11/2022) [facility] History of Past illness Narrative* Problem [...] Repeat CBC in one month. Eleanor Bryant APRN.ASSISTANT PROFESSOR OF RADIOLOGY Abnormal glucose in , antepartum 201807/18/2019 Overview: [...] Overview: Added automatically from request for surgery [id number] Encounter for supervision of normal first in [...] her NOB is scheduled 06/08/[address] Ugalde ordered nuchal ultrasound. TKRN Female infertility 09/24/2015 12/27/2016 Infertility counseling 02/17/2015 02/27/201 6 documented as of this encounter (statuses as of 07/15/2022) [facility] History of Past illness Narrative* Problem Noted Date Resolved Date History of gestational diabetes 06/22/2021 12/21/2021 Polyhydramnios in third trimester 04/24/2019 07/18/2019 Diet controlled gestational diabetes mellitus (GDM) in third trimester 04/16/2019 07/18/2019 Antepartum anemia 04/10/2019 07/18/2019 Overview: 05/21/19 Hgb 11.7 Eleanor Bryant APRN.ASSISTANT PROFESSOR OF RADIOLOGY 04/12/19 Hgb 10.2 Fe sulfate 325 mg daily on Mondays, Wednesdays and Fridays. Repeat CBC in one month. Eleanor Bryant APRN.ASSISTANT PROFESSOR OF RADIOLOGY Abnormal glucose in , antepartum 201807/18/2019 Overview: 04/09/19 1 hr GCT 149. 3 hr GTT ordered. 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 Ugalde ordered nuchal ultrasound. TKRN Female infertility 09/24/2015 12/27/2016 Infertility counseling 02/17/2015 6 documented as of this encounter (statuses as of 07/22/2022) [facility] History of Past illness Narrative* Problem [...] Repeat CBC in one month. Eleanor Bryant APRN.ASSISTANT PROFESSOR OF RADIOLOGY Abnormal glucose in , antepartum 201807/18/2019 Overview: 04/09/19 1 hr GCT 149. 3 hr GTT ordered. 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 Ugalde ordered nuchal ultrasound. TKRN Female infertility 09/24/2015 12/27/2016 Infertility counseling 02/17/2015 6 documented as of this encounter (statuses as of 07/26/2022) [facility] History of Past illness Narrative* Problem Noted Date Resolved Date History of gestational diabetes 06/22/2021 12/21/2021 Polyhydramnios in third trimester 04/24/2019 07/18/2019 Diet controlled gestational diabetes mellitus (GDM) in third trimester 04/16/2019 07/18/2019 Antepartum anemia 04/10/2019 07/18/2019 Overview: 05/21/19 Hgb 11.7 Eleanor Bryant APRN.ASSISTANT PROFESSOR OF RADIOLOGY 04/12/19 Hgb 10.2 Fe sulfate 325 mg daily on Mondays, Wednesdays and Fridays. Repeat CBC in one month. Eleanor Bryant APRN.ASSISTANT PROFESSOR OF RADIOLOGY Abnormal glucose in , antepartum 201807/18/2019 Overview: 04/09/19 1 hr GCT 149. 3 hr GTT ordered. 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 Ugalde ordered nuchal ultrasound. TKRN Female infertility 09/24/2015 12/27/2016 Infertility counseling 02/17/2015 6 documented as of this encounter (statuses as of 07/28/2022) [facility] History of Past illness Narrative* Problem Noted Date Resolved Date History of gestational diabetes 06/22/2021 12/21/2021 Polyhydramnios in third trimester 04/24/2019 07/18/2019 Diet controlled gestational diabetes mellitus (GDM) in third trimester 04/16/2019 07/18/2019 Antepartum anemia 04/10/2019 07/18/2019 Overview: 05/21/19 Hgb 11.7 Eleanor Bryant APRN.ASSISTANT PROFESSOR OF RADIOLOGY 04/12/19 Hgb 10.2 Fe sulfate 325 mg daily on Mondays, Wednesdays and Fridays. Repeat CBC in one month. Eleanor Bryant APRN.ASSISTANT PROFESSOR OF RADIOLOGY Abnormal glucose in , antepartum 201807/18/2019 Overview: 04/09/19 1 hr GCT 149. 3 hr GTT ordered. 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 Ugalde ordered nuchal ultrasound. TKRN Female infertility 09/24/2015 12/27/2016 Infertility counseling 02/17/2015 6 documented as of this encounter (statuses as of 08/01/2022) [facility] History of Past illness Narrative* Problem Noted Date Resolved Date Polyhydramnios in third trimester 04/24/2019 07/18/2019 Diet controlled gestational diabetes mellitus (GDM) in third trimester 04/16/2019 07/18/2019 Antepartum anemia 04/10/2019 07/18/2019 Overview: 05/21/19 Hgb 11.7 Eleanor Bryant APRN.ASSISTANT PROFESSOR OF RADIOLOGY 04/12/19 Hgb 10.2 Fe sulfate 325 mg daily on Mondays, Wednesdays and Fridays. Repeat CBC in one month. Eleanor Bryant APRN.ASSISTANT PROFESSOR OF RADIOLOGY Abnormal glucose in , antepartum 201807/18/2019 Overview: 04/09/19 1 hr GCT 149. 3 hr GTT ordered. 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 Ugalde ordered nuchal ultrasound. TKRN Female infertility 09/24/2015 12/27/2016 Infertility counseling 02/17/2015 6 documented as of this encounter (statuses as of 11/29/2021) [facility] History of Past illness Narrative* Problem Noted Date Resolved Date Polyhydramnios in third trimester 04/24/2019 07/18/2019 Diet controlled gestational diabetes mellitus (GDM) in third trimester 04/16/2019 07/18/2019 Antepartum anemia 04/10/2019 07/18/2019 Overview: 05/21/19 Hgb 11.7 Eleanor Bryant APRN.ASSISTANT PROFESSOR OF RADIOLOGY 04/12/19 Hgb 10.2 Fe sulfate 325 mg daily on Mondays, Wednesdays and Fridays. Repeat CBC in one month. Eleanor Bryant APRN.ASSISTANT PROFESSOR OF RADIOLOGY Abnormal glucose in , antepartum 201807/18/2019 Overview: 04/09/19 1 hr GCT 149. 3 hr GTT ordered. 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 Ugalde ordered nuchal ultrasound. TKRN Female infertility 09/24/2015 12/27/2016 Infertility counseling 02/17/2015 6 documented as of this encounter (statuses as of 12/09/2021) [facility] [place] [facility] Diagnosis Early stage of - Primary state, incidental [facility] Diagnosis Antepartum multigravida of advanced maternal age- Primary with history of infertility, antepartum History of gestational diabetes in prior , currently with other poor obstetric history with history of section, antepartum History of macrosomia in infant in prior , currently with other poor obstetric history [facility] Antepartum multigravida of advanced maternal age- Primary History of delivery, currently Previous delivery, unspecified as to episode of care or not applicable [facility] Diagnosis AMA (advanced maternal age) multigravida 35+, first trimester- Primary Encounter for screening for nuchal translucency [facility] Diagnosis Antepartum multigravida of advanced maternal age- Primary 12 weeks gestation of state, incidental [facility] Diagnosis 16 weeks gestation of - Primary state, incidental Antepartum multigravida of advanced maternal age History of delivery, currently Previous delivery, unspecified as to episode of care or not applicable [facility] Diagnosis 19 weeks gestation of - Primary state, incidental [facility] Diagnosis Encounter for routine screening for malformation using ultrasonics- Primary 19 weeks gestation of state, incidental Elderly multigravida with antepartum condition or complication 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 [facility] Diagnosis 24 weeks gestation of - Primary state, incidental documented in this encounter [facility]* Diagnosis Abnormal maternal glucose tolerance, antepartum- Primary Gestational diabetes mellitus, class A1 Abnormal maternal glucose tolerance, complicating , childbirth, or the puerperium, unspecified as to episode of care Antepartum anemia Anemia, antepartum [facility] [place] [facility]* Diagnosis 28 weeks gestation of - Primary state, incidental Gestational diabetes mellitus, class A1 Abnormal maternal glucose tolerance, complicating , childbirth, or the puerperium, unspecified as to episode of care Need for vaccination Need for prophylactic vaccination and inoculation against unspecified single disease documented in this encounter [facility]* Diagnosis 30 weeks gestation of - Primary state, incidental Antepartum multigravida of advanced maternal age Gestational diabetes mellitus, class A1 Abnormal maternal glucose tolerance, complicating , childbirth, or the puerperium, unspecified as to episode of care GDM, class A2 Abnormal maternal glucose tolerance, complicating , childbirth, or the puerperium, unspecified as to episode of care [facility] [place] [facility]* Diagnosis 30 weeks gestation of state, incidental GDM, class A2 Abnormal maternal glucose tolerance, complicating , childbirth, or the puerperium, unspecified as to episode of care documented in this encounter [facility]* Diagnosis Gestational diabetes mellitus, class A1- Primary Abnormal maternal glucose tolerance, complicating , childbirth, or the puerperium, unspecified as to episode of care Antepartum multigravida of advanced maternal age 32 weeks gestation of state, incidental [facility] [place] [facility]* Diagnosis 32 weeks gestation of - Primary state, incidental [facility] [place] [facility]* Diagnosis GDM, class A2- Primary Abnormal maternal glucose tolerance, complicating , childbirth, or the puerperium, unspecified as to episode of care Antepartum multigravida of advanced maternal age documented in this encounter [facility]* Diagnosis 34 weeks gestation of - Primary state, incidental Antepartum multigravida of advanced maternal age GDM, class A2 Abnormal maternal glucose tolerance, complicating , childbirth, or the puerperium, unspecified as to episode of care [facility] [place] [facility]* Diagnosis 36 weeks gestation of - Primary state, incidental AMA (advanced maternal age) multigravida 35+, third trimester Diet controlled gestational diabetes mellitus (GDM) in third trimester [facility] [place] [facility]* Diagnosis GDM, class A2- Primary Abnormal maternal glucose tolerance, complicating , childbirth, or the puerperium, unspecified as to episode of care Antepartum multigravida of advanced maternal age 36 weeks gestation of state, incidental [facility] [place] [facility]* Diagnosis Antepartum multigravida of advanced maternal age- Primary 37 weeks gestation of state, incidental 30 weeks gestation of state, incidental GDM, class A2 Abnormal maternal glucose tolerance, complicating , childbirth, or the puerperium, unspecified as to episode of care documented in this encounter [facility]* Diagnosis Antepartum multigravida of advanced maternal age- Primary 38 weeks gestation of state, incidental [facility] [place] [facility]* Diagnosis Encounter for screening mammogram for breast cancer documented in this encounter [facility] note* Diagnosis care and examination- Primary Routine follow-up Cervical cancer screening Screening for malignant neoplasm of the cervix documented in this encounter [facility] note* Diagnosis Encounter for screening mammogram for breast cancer documented in this encounter [facility] note* Diagnosis Encounter for gynecological examination (general) (routine) without abnormal findings- Primary Encounter for screening mammogram for breast cancer documented in this encounter [facility] for referral (narrative)* Diagnostic Procedure Only (Routine) - Authorized Specialty Diagnoses / Procedures Referred By Cesar huynh Referred To Contact [facility] Diagnoses Antepartum multigravida of advanced maternal age Procedures OBSTETRIC ULTRASOUND WHI US PREG UTERUS AFTER 1ST TRIMEST GESTATION Bertram Quintana MD [address] [place] [address] [address] Referral ID Status Reason Start Date Expiration Date Visits Requested Visits Authorized [id number] Authorized Auto-Generat ed Referral 01/18/2022 01/18/2023 1 1 [facility] for referral (narrative)* Outpatient Procedure (Routine) - Pending Review Specialty Diagnoses / Procedures Referred By Contac t Referred To Contact [facility] Diagnoses Antepartum multigravida of advanced maternal age 30 weeks gestation of Procedures NON-STRESS TEST NON-STRESS TEST Bere Mccauley MD [address] [place] [address] [facility] [place] [address] Referral ID Status Reason Start Date Expiration Date Visits Requested Visits Authorized [id number] Pending Review Auto-Generat ed Referral 05/25/2022 05/25/2023 6 1 * Diagnostic Procedure Only (Routine) - Pending Review Specialty Diagnoses / Procedures Referred By Contac t Referred To Contact [facility] Diagnoses Antepartum multigravida of advanced maternal age 30 weeks gestation of GDM, class A2 Procedures OBSTETRIC ULTRASOUND WHI US PREG UTERUS AFTER 1ST TRIMEST GESTATION Bere Mccauley MD [address] [place] [address] [facility] [address] [place] [address] Referral ID Status Reason Start Date Expiration Date Visits Requested Visits Authorized [id number] Pending Review Auto-Generat ed Referral 05/25/2022 05/25/2023 1 1 [facility] for referral (narrative)* Diagnostic Procedure Only (Routine) - Pending Review Specialty Diagnoses / Procedures Referred By Contac t Referred To Contact [facility] Diagnoses GDM, class A2 Antepartum multigravida of advanced maternal age Procedures OBSTETRIC ULTRASOUND WHI US PREG UTERUS AFTER 1ST TRIMEST GESTATION Angie Padilla APRN.KRYSTA [address] [place] [address] [facility] [address] [place] [address] Referral ID Status Reason Start Date Expiration Date Visits Requested Visits Authorized [id number] Pending Review Auto-Generat ed Referral 2 06/13/2023 1 1 [facility] for referral (narrative)* Outpatient Procedure (Routine) - Pending Review Specialty Diagnoses / Procedures Referred By Cesar huynh Referred To Contact [facility] Diagnoses 34 weeks gestation of Antepartum multigravida of advanced maternal age GDM, class A2 Procedures NON-STRESS TEST NON-STRESS TEST Angie Padilla APRN.CNM [address] [place] [address] [facility] [address] [place] [address] Referral ID Status Reason Start Date Expiration Date Visits Requested Visits Authorized [id number] Pending Review Auto-Generat ed Referral 2 06/23/2023 1 1 T [facility] for referral (narrative)* Diagnostic Procedure Only (Routine) - Pending Review Specialty Diagnoses / Procedures Referred By Cesar huynh Referred To Contact [facility] Diagnoses Encounter for screening mammogram for breast cancer Procedures YOSEF SCREENING SCREENING MAMMOGRAPHY BI 2-VIEW BREAST INC CAD Micky Frederick MD [address] [place] [address] [facility] [address] [place] [id number] Referral ID Status Reason Start Date Expiration Date Visits Requested Visits Authorized [id number] Pending Review Auto-Generat ed Referral 07/28/2022 08/27/2023 1 1 [facility] for referral (narrative)* Diagnostic Procedure Only (Routine) - Pending Review Specialty Diagnoses / Procedures Referred By Cesar t Referred To Contact [facility] Diagnoses Encounter for screening mammogram for breast cancer Procedures YOSEF SCREENING SCREENING MAMMOGRAPHY BI 2-VIEW BREAST INC CAD Micky Frederick MD [address] [place] [address] [facility] [address] [place] [address] Referral ID Status Reason Start Date Expiration Date Visits Requested Visits Authorized [id number] Pending Review Auto-Generat ed Referral 07/05/2023 08/03/2024 1 1 [facility] for visit Narrative* Diagnostic Procedure Only (Routine) - Closed Specialty Diagnoses / Procedures Referred By Contac t Referred To Contact [facility] Diagnoses Antepartum multigravida of advanced maternal age Procedures OBSTETRIC ULTRASOUND WHI US PREG UTERUS AFTER 1ST TRIMEST GESTATION Bertram Quintana MD [address] [place] [address] [facility] [address] [place] [address] Referral ID Status Reason Start Date Expiration Date V isits Requested Visits Authorized [id number] Closed Auto-Generate d Referral 01/18/2022 01/18/2023 1 1 [facility] Reason for Referral Specialty Diagnoses / Procedures Referred By Contac t Referred To Contact Diagnoses Antepartum multigravida of advanced maternal age Procedures CONSULT TO MATERNAL MEDI OFFICE/OUTPATIENT [facility] MDM 60-74 MINUTES Bertram Quintana MD [address] [place] [address] Referral ID Status Reason Start Date Expiration Date Visits Requested Visits Authorized [id number] Authorized PCP Requested Referral Auto-Generate d Referral 12/21/2021 12/21/2022 1 1 Specialty Diagnoses / Procedures Referred By Contac t Referred To Contact [facility] Diagnoses Antepartum multigravida of advanced maternal age Procedures NUCHAL TRANSLUCENCY WHI US NUCHAL TRANSLUCENCY 1ST GESTATION Bertram Quintana MD [address] [place] [address] [facility] [address] [place] [address] Referral ID Status Reason Start Date Expiration Date Visits Requested Visits Authorized [id number] Authorized Auto-Generat ed Referral 12/21/2021 12/21/2022 1 [...] or prosecute any alcohol or drug abuse patient.[facility] the event this information is protected by the Federal Confidentiality of Alcohol and Drug Abuse Patient Records regulations: The Federal rules restrict any use of the information to criminally investigate or prosecute any alcohol or drug abuse patient.[facility] the event this information is protected by the Federal Confidentiality of Alcohol and Drug Abuse Patient Records regulations: The Federal rules restrict any use of the information to criminally investigate or prosecute any alcohol or drug abuse patient.[facility] the event this information is protected by the Federal Confidentiality of Alcohol and Drug Abuse Patient Records regulations: The Federal rules restrict any use of the information to criminally investigate or prosecute any alcohol or drug abuse patient.[facility] the event this information is protected by the Federal Confidentiality of Alcohol and Drug Abuse Patient Records regulations: The Federal rules restrict any use of the information to criminally investigate or prosecute any alcohol or drug abuse patient.[facility] the event this information is protected by the Federal Confidentiality of Alcohol and Drug Abuse Patient Records regulations: The Federal rules restrict any use of the information to criminally investigate or prosecute any alcohol or drug abuse patient.[facility] the event this information is protected by the Federal Confidentiality of Alcohol and Drug Abuse Patient Records regulations: The Federal rules restrict any use of the information to criminally investigate or prosecute any alcohol or drug abuse patient.[facility] the event this information is protected by the Federal Confidentiality of Alcohol and Drug Abuse Patient Records regulations: The Federal rules restrict any use of the information to criminally investigate or prosecute any alcohol or drug abuse patient.[facility] the event this information is protected by the Federal Confidentiality of Alcohol and Drug Abuse Patient Records regulations: The Federal rules restrict any use of the information to criminally investigate or prosecute any alcohol or drug abuse patient.[facility] the event this information is protected by the Federal Confidentiality of Alcohol and Drug Abuse Patient Records regulations: The Federal rules restrict any use of the information to criminally investigate or prosecute any alcohol or drug abuse patient.[facility] the event this information is protected by the Federal Confidentiality of Alcohol and Drug Abuse Patient Records regulations: The Federal rules restrict any use of the information to criminally investigate or prosecute any alcohol or drug abuse patient.[facility] the event this information is protected by the Federal Confidentiality of Alcohol and Drug Abuse Patient Records regulations: The Federal rules restrict any use of the information to criminally investigate or prosecute any alcohol or drug abuse patient.[facility] the event this information is protected by the Federal Confidentiality of Alcohol and Drug Abuse Patient Records regulations: The Federal rules restrict any use of the information to criminally investigate or prosecute any alcohol or drug abuse patient.[facility] HospitalIn the event this information is protected by the Federal Confidentiality of Alcohol and Drug Abuse Patient Records regulations: The Federal rules restrict any use of the information to criminally investigate or prosecute any alcohol or drug abuse patient.[facility] HospitalIn the event this information is protected by the Federal Confidentiality of Alcohol and Drug Abuse Patient Records regulations: The Federal rules restrict any use of the information to criminally investigate or prosecute any alcohol or drug abuse patient.[facility] HospitalIn the event this information is protected by the Federal Confidentiality of Alcohol and Drug Abuse Patient Records regulations: The Federal rules restrict any use of the information to criminally investigate or prosecute any alcohol or drug abuse patient.[facility] HospitalIn the event this information is protected by the Federal Confidentiality of Alcohol and Drug Abuse Patient Records regulations: The Federal rules restrict any use of the information to criminally investigate or prosecute any alcohol or drug abuse patient.[facility] HospitalIn the event this information is protected by the Federal Confidentiality of Alcohol and Drug Abuse Patient Records regulations: The Federal rules restrict any use of the information to criminally investigate or prosecute any alcohol or drug abuse patient.[facility] HospitalIn the event this information is protected by the Federal Confidentiality of Alcohol and Drug Abuse Patient Records regulations: The Federal rules restrict any use of the information to criminally investigate or prosecute any alcohol or drug abuse patient.[facility] HospitalIn the event this information is protected by the Federal Confidentiality of Alcohol and Drug Abuse Patient Records regulations: The Federal rules restrict any use of the information to criminally investigate or prosecute any alcohol or drug abuse patient.[facility] HospitalIn the event this information is protected by the Federal Confidentiality of Alcohol and Drug Abuse Patient Records regulations: The Federal rules restrict any use of the information to criminally investigate or prosecute any alcohol or drug abuse patient.[facility] HospitalIn the event this information is protected by the Federal Confidentiality of Alcohol and Drug Abuse Patient Records regulations: The Federal rules restrict any use of the information to criminally investigate or prosecute any alcohol or drug abuse patient.[facility] HospitalIn the event this information is protected by the Federal Confidentiality of Alcohol and Drug Abuse Patient Records regulations: The Federal rules restrict any use of the information to criminally investigate or prosecute any alcohol or drug abuse patient.[facility] HospitalIn the event this information is protected by the Federal Confidentiality of Alcohol and Drug Abuse Patient Records regulations: The Federal rules restrict any use of the information to criminally investigate or prosecute any alcohol or drug abuse patient.[facility] HospitalIn the event this information is protected by the Federal Confidentiality of Alcohol and Drug Abuse Patient Records regulations: The Federal rules restrict any use of the information to criminally investigate or prosecute any alcohol or drug abuse patient.[facility] HospitalIn the event this information is protected by the Federal Confidentiality of Alcohol and Drug Abuse Patient Records regulations: The Federal rules restrict any use of the information to criminally investigate or prosecute any alcohol or drug abuse patient.[facility] HospitalIn the event this information is protected by the Federal Confidentiality of Alcohol and Drug Abuse Patient Records regulations: The Federal rules restrict any use of the information to criminally investigate or prosecute any alcohol or drug abuse patient.[facility] HospitalIn the event this information is protected by the Federal Confidentiality of Alcohol and Drug Abuse Patient Records regulations: The Federal rules restrict any use of the information to criminally investigate or prosecute any alcohol or drug abuse patient.[facility] HospitalIn the event this information is protected by the Federal Confidentiality of Alcohol and Drug Abuse Patient Records regulations: The Federal rules restrict any use of the information to criminally investigate or prosecute any alcohol or drug abuse patient.[facility] HospitalIn the event this information is protected by the Federal Confidentiality of Alcohol and Drug Abuse Patient Records regulations: The Federal rules restrict any use of the information to criminally investigate or prosecute any alcohol or drug abuse patient.[facility] HospitalIn the event this information is protected by the Federal Confidentiality of Alcohol and Drug Abuse Patient Records regulations: The Federal rules restrict any use of the information to criminally investigate or prosecute any alcohol or drug abuse patient.[facility] HospitalIn the event this information is protected by the Federal Confidentiality of Alcohol and Drug Abuse Patient Records regulations: The Federal rules restrict any use of the information to criminally investigate or prosecute any alcohol or drug abuse patient.[facility] HospitalIn the event this information is protected by the Federal Confidentiality of Alcohol and Drug Abuse Patient Records regulations: The Federal rules restrict any use of the information to criminally investigate or prosecute any alcohol or drug abuse patient.[facility] HospitalIn the event this information is protected by the Federal Confidentiality of Alcohol and Drug Abuse Patient Records regulations: The Federal rules restrict any use of the information to criminally investigate or prosecute any alcohol or drug abuse patient.[facility] HospitalIn the event this information is protected by the Federal Confidentiality of Alcohol and Drug Abuse Patient Records regulations: The Federal rules restrict any use of the information to criminally investigate or prosecute any alcohol or drug abuse patient.[facility] HospitalIn the event this information is protected by the Federal Confidentiality of Alcohol and Drug Abuse Patient Records regulations: The Federal rules restrict any use of the information to criminally investigate or prosecute any alcohol or drug abuse patient.[facility] HospitalIn the event this information is protected by the Federal Confidentiality of Alcohol and Drug Abuse Patient Records regulations: The Federal rules restrict any use of the information to criminally investigate or prosecute any alcohol or drug abuse patient.[facility] HospitalIn the event this information is protected by the Federal Confidentiality of Alcohol and Drug Abuse Patient Records regulations: The Federal rules restrict any use of the information to criminally investigate or prosecute any alcohol or drug abuse patient.[facility] Reason for Visit (unrecogniz ed section and content) Specialty Diagnoses / Procedures Referred By Contac t Referred To Contact [facility] [employer] Diagnoses OB Procedures OFFICE/OUTPATIENT ESTABLISHED LOW MDM 20-29 MIN EST [facility] OB Tahmina Blackwood MD [address] [place] [address] Carmelita Parikh MD [address] [place] [address] Referral ID Status Reason Start Date Expiration Date Visits Re quested Visits Authorized [id number] Closed 07/15/2022 08/27/2022 2 2 Reason Onset Date Comments Care 07/06/2022 Specialty Diagnoses / Procedures Referred By Contac t Referred To Contact [employer] [employer] Diagnoses ob Procedures NEW [facility] OB 1ST EXAM Self Bertram Quintana MD [address] [place] [address] Referral ID Status Reason Start Date Expiration Date V isits Requested Visits Authorized [id number] Authorized 08/28/2021 08/27/2022 99 99 Reason Onset Date Comments Care 06/23/2022 Specialty Diagnoses / Procedures Referred By Contac t Referred To Contact [employer] [employer] Diagnoses ob Procedures NEW [facility] OB 1ST EXAM Self Bertram Quintana MD [address] [place] [address] Reason Onset Date Comments Care 06/10/2022 Reason Onset Date Comments Care 05/12/2022 Reason Onset Date Comments Care 01/18/2022 Reason Comments +UPT Reason Comments Care Reason Comments Initial OB Visit Reason Comments Outside Labs Results Reason Comments US Specialty Diagnoses / Procedures Referred By Contac t Referred To Contact [facility] Diagnoses Antepartum multigravida of advanced maternal age Procedures NUCHAL TRANSLUCENCY [facility] US NUCHAL TRANSLUCENCY 1ST GESTATION Bertram Quintana MD [address] [place] [address] [facility] [address] [place] [address] Referral ID Status Reason Start Date Expiration Date V isits Requested Visits Authorized [id number] Closed Auto-Generate d Referral 12/21/2021 12/21/2022 1 1 Reason Comments Maternity 21 results Reason Onset Date Comments Care 02/17/2022 Reason Comments Results Reason Onset Date Comments Care 03/11/2022 Specialty Diagnoses / Procedures Referred By Contac t Referred To Contact [facility] [employer] [facility] Diagnoses Supervision of elderly multigravida, unspecified trimester OB / anatomy ultrasound Procedures US PREG UTERUS AFTER 1ST TRIMEST GESTATION EST [facility] OB Bertram Quintana MD [address] [place] [address] Angie Padilla APRN.[facility] [address] [place] [address] Referral ID Status Reason Start Date Expiration Date Visits Re quested Visits Authorized [id number] Closed 08/28/2021 08/27/2022 1 1 Reason Onset Date Comments Care 04/12/2022 Specialty Diagnoses / Procedures Referred By Contac t Referred To Contact [employer] [facility] Diagnoses ob Procedures NEW [facility] OB 1ST EXAM Jason, Bertram Herrera MD [address] [place] [address] Reason Comments Medication Problem Reason Onset Date Comments Care 05/25/2022 Specialty Diagnoses / Procedures Referred By Contac t Referred To Contact Diagnoses Antepartum multigravida of advanced maternal age Procedures CONSULT TO MATERNAL MEDI OFFICE/OUTPATIENT [facility] 60-74 MINUTES Bertram Quintana MD [address] [place] [address] Referral ID Status Reason Start Date Expiration Date V isits Requested Visits Authorized [id number] Closed PCP Requested Referral Auto-Generated Referral 12/21/2021 12/21/2022 1 1 Specialty Diagnoses / Procedures Referred By Contac t Referred To Contact [facility] Diagnoses Antepartum multigravida of advanced maternal age 30 weeks gestation of GDM, class A2 Procedures OBSTETRIC ULTRASOUND I US PREG UTERUS AFTER 1ST TRIMEST GESTATION Bere Mccauley MD [address] [place] [address] [facility] [place] [address] Referral ID Status Reason Start Date Expiration Date V isits Requested Visits Authorized [id number] Open Auto-Generate d Referral 05/25/2022 05/25/2023 1 1 Reason Comments Orders Reason Comments Weekly NST Specialty Diagnoses / Procedures Referred By Contac t Referred To Contact [facility] Diagnoses GDM, class A2 Antepartum multigravida of advanced maternal age Procedures OBSTETRIC ULTRASOUND WHI US PREG UTERUS AFTER 1ST TRIMEST GESTATION Angie Padilla APRN.[facility] [address] [place] [address] [facility] [place] [address] Referral ID Status Reason Start Date Expiration Date V isits Requested Visits Authorized [id number] Closed Auto-Generate d Referral 06/13/2022 06/13/2023 1 1 Reason Comments Patient Question Reason Onset Date Comments Care 07/15/2022 Referral ID Status Reason Start Date Expiration Date V isits Requested Visits Authorized [id number] Authorized 07/15/2022 08/27/2022 2 2 Reason Comments Ob Delivery Note Reason Comments FMLA Paperwork Specialty Diagnoses / Procedures Referred By Cesar huynh Referred To Contact [employer] [facility] Diagnoses Follow-up exam 6Wk Post Procedures OFFICE/OUTPATIENT ESTABLISHED HIGH MDM 40-54 MIN POST Bertram Quintana MD [address] [place] [address] Bertram Quintana MD [address] [place] [address] Referral ID Status Reason Start Date Expiration Date Visits Re quested Visits Authorized [id number] Closed 08/24/2022 08/27/2023 1 1 Reason Comments Forms/letter Reason Comments Yearly Exam Care Teams (unrecognized sec tion and content) Business System Consultant Relationship Specialty Start Date End Date Micky Frederick MD [address] [place] [id number] PCP - General Family Practice 06/22/21 Business System Consultant Relationship Specialty Start Date End Date Micky Frederick MD [address] [place] [phone] PCP - General Family Practice 06/22/21 Business System Consultant Relationship Specialty Start Date End Date Micky Frederick MD [address] [place] [phone] PCP - General Family Practice 06/22/21 Business System Consultant Relationship Specialty Start Date End Date Micky Frederick MD [address] [place] [phone] PCP - General Family Practice 06/22/21 Business System Consultant Relationship Specialty Start Date End Date Micky Frederick MD [address] [place] [id number] PCP - General Family Practice 06/22/21 Business System Consultant Relationship Specialty Start Date End Date Micky Frederick MD [address] [place] [address] PCP - General Family Practice 06/22/21 Business System Consultant Relationship Specialty Start Date End Date Micky Frederick MD [facility] [place] [address] PCP - General Family Practice 06/22/21 Business System Consultant Relationship Specialty Start Date End Date Micky Frederick MD [address] [place] [address], [place] [address] PCP - General Family Practice 06/22/21 Business System Consultant Relationship Specialty Start Date End Date Micky Frederick MD [address] [place] [address], [place] [address] PCP - General Family Practice 06/22/21 Business System Consultant Relationship Specialty Start Date End Date Micky Frederick MD [address] [place] [address], [place] [address] PCP - General Family Medicine 06/22/21 Business System Consultant Relationship Specialty Start Date End Date Micky Frederick MD [address] [place] [address], [place] [address] PCP - General Family Medicine 06/22/21 Business System Consultant Relationship Specialty Start Date End Date Micky Frederick MD [address] [place] [address], [place] [address] PCP - General Family Medicine 06/22/21 Business System Consultant Relationship Specialty Start Date End Date Micky Frederick MD [address] [place] [address], [place] [address] PCP - General Family Medicine 06/22/21 Business System Consultant Relationship Specialty Start Date End Date Micky Frederick MD [address] [place] [address], [place] [address] PCP - General Family Medicine 06/22/21 Business System Consultant Relationship Specialty Start Date End Date Micky Frederick MD [facility] [place] [address] PCP - General Family Medicine 06/22/21 Business System Consultant Relationship Specialty Start Date End Date Micky Frederick MD [address] [place] [address], [place] [address] PCP - General Family Medicine 06/22/21 Business System Consultant Relationship Specialty Start Date End Date Micky Frederick MD [address] [place] [address], [place] [address] PCP - General Family Medicine 06/22/21 Business System Consultant Relationship Specialty Start Date End Date Micky Frederick MD [address] [place] [phone] PCP - General Family Medicine 06/22/21 Business System Consultant Relationship Specialty Start Date End Date Micky Frederick MD [address] [place] [address] [place] [address] PCP - General Family Medicine 06/22/21 Business System Consultant Relationship Specialty Start Date End Date Micky Frederick MD [address] [place] [address] PCP - General Family Medicine 06/22/21 Business System Consultant Relationship Specialty Start Date End Date Micky Frederick MD [address] [place] [address], [place] [address] PCP - General Family Medicine 06/22/21 Business System Consultant Relationship Specialty Start Date End Date Micky Frederick MD [address] [place] [address] [place] [address] PCP - General Family Medicine 06/22/21 Business System Consultant Relationship Specialty Start Date End Date Micky Frederick MD [address] [place], [place] [address] PCP - General Family Medicine 06/22/21 Business System Consultant Relationship Specialty Start Date End Date Micky Frederick MD [address] [place], [place] [address] [phone] PCP - General Family [facility] 06/22/21 Business System Consultant Relationship Specialty Start Date End Date Micky Frederick MD [address] [place], [place] [address] [phone] PCP - [facility] 06/22/21 Business System Consultant Relationship Specialty Start Date End Date Micky Frederick MD [address] [place], [place] [address] PCP - General [facility] 06/22/21 Business System Consultant Relationship Specialty Start Date End Date Micky Frederick MD [address] [place], [place] [address] PCP - General Family Medicine 06/22/21 INFORMATION SOURCE (unrecogn ized section and [...] BE BASED ON THE PRIMARY CLINICAL RECORDS. [email or web address] provides no warranty or guarantee of the accuracy or completeness of information in this document.
[2023-11-01] MEDS: Ibuprofen 600 MG Tablet PO (22:53)
[2023-11-02] VITALS: BP 125/78; PULSE 71; RESP 18; TEMP 36.7; O2SAT 99
== END 2023-11-02 00:14 | disposition home or self-care (01) ==
PROVIDERS: Emergency Provider Emergency Medicine; PCP Psychiatry & Neurology Vascular Neurology; Visit Provider Emergency Medicine
DX: S92.002A Unspecified fracture of left calcaneus, initial encounter for closed fracture (principal); S93.402A Sprain of unspecified ligament of left ankle, initial encounter; W10.9XXA Fall (on) (from) unspecified stairs and steps, initial encounter
CPT/HCPCS: 73610; 99284

== ENCOUNTER → 2023-12-18 | Outpatient (CLI) | payer OTHER, SELFPAY ==
[2023-12-18 13:24] LABS: Hemoglobin A1c 5.4 % (3.8-5.6)
[2023-12-18 13:32] LABS: AST(SGOT) 18 U/L (15-37); Alanine Aminotransfer ALT/SGPT 28 U/L (13-56); Albumin, Serum 3.5 g/dL (3.2-5.0); Alkaline Phosphatase 127 U/L (45-117); Anion Gap 3 (5-15); BUN 15 mg/dL (7-18); BUN/Creat Ratio 20.8 RATIO (10-20); Calcium,Total 9.2 mg/dL (8.5-10.1); Chloride 108 mmol/L (98-107); Cholesterol 194 mg/dL (200); Creatinine, Serum 0.72 mg/dL (0.55-1.02); EST Glomerular Filtration Rate 95 mL/min (>60); Est Glom Filt Rate - Afr Amer 114 mL/min (>60); Globulin 3.6 g/dL (2.2-4.2); Glucose 86 mg/dL (74-106); High Density Lipoprotein 47 mg/dL; Protein, Total 7.1 g/dL (6.4-8.2); Sodium Level 138 mmol/L (136-145); Triglycerides 216 mg/dL; Very Low Density Lipoprotein 43 mg/dL (5-40)
== END | disposition home or self-care (01) ==
LOC: LAB 12:18
PROVIDERS: PCP Family Medicine; Referring Provider Family Medicine; Visit Provider Family Medicine
DX: Z00.00 Encounter for general adult medical examination without abnormal findings (principal); R79.89 Other specified abnormal findings of blood chemistry; Z13.220 Encounter for screening for lipoid disorders; Z13.6 Encounter for screening for cardiovascular disorders; Z13.1 Encounter for screening for diabetes mellitus
CPT/HCPCS: 36415; 80053; 80061; 83036

== ENCOUNTER → 2025-02-26 | Outpatient (CLI) | payer OTHER, SELFPAY ==
[2025-02-26 11:16] LABS: Alkaline Phosphatase 148 U/L (35-104)
[2025-02-27 04:07] LABS: GGTP 99 IU/L (0-60)
== END | disposition home or self-care (01) ==
PROVIDERS: PCP Family Medicine; Visit Provider Family Medicine
DX: R74.8 Abnormal levels of other serum enzymes (principal); R73.9 Hyperglycemia, unspecified
CPT/HCPCS: 36415; 82977; 83036; 84075; 84080

== ENCOUNTER → 2025-03-26 | Outpatient (CLI) | payer OTHER, SELFPAY ==
--- NOTE | 2025-03-26 07:22 | BI_ITS ---
EXAM: SCRN MAMM (CAD)W/JOSE ROBERTO BILAT DATE: 03/26/2025 CLINICAL HISTORY: F, Age 44 y/o , SCREENING TECHNIQUE: SCRN MAMM (CAD)W/JOSE ROBERTO BILAT COMPARISON: Baseline examination, no priors. FINDINGS: TISSUE DENSITY: There are scattered areas of fibroglandular density. Bilateral Breast Mammographic Findings: No significant masses, calcifications or other abnormalities are identified. BI/SCRN MAMM (CAD)W/JOSE ROBERTO BILAT IMPRESSION: There is no mammographic evidence of malignancy. OVERALL FINAL ASSESSMENT BI-RADS 1: NEGATIVE. RECOMMENDATION: Routine annual follow-up in 1 Year A letter with findings and recommendations will be mailed to the patient. Reading Location: [id number]
--- NOTE | 2025-03-26 07:22 | US_ITS ---
PROCEDURE: ABDOMEN LIMITED 03/26/2025 REASON FOR EXAM: ELEVATED ALKALINE PHOSPHATASE LEVEL TECHNIQUE: ABDOMEN LIMITED COMPARISON: 09/24/2023 FINDINGS: Liver: Measures 17.5 cm. Diffuse fatty infiltration noted without a discrete lesion. Gallbladder: Surgically absent. Common bile duct: Normal at 4 mm . Pancreas: Visualized pancreas is sonographically normal Kidneys: The right kidney measures 9.7 x 5.5 x 3.2 cm. Cortex measures 1.4 cm. No hydronephrosis, calculi or mass US/Abdomen Limited IMPRESSION: Fatty liver, no discrete lesion otherwise unremarkable right upper quadrant ult rasound Reading Location: [id number]
--- OUTSIDE RECORDS SUMMARY | 2025-03-26 07:41 | XMS RPT_ITS | CCD ---
Author Organization [facility] Care Team Providers Care Grease Monkey Name Role Phone Keith Frederick MD Primary Care Provider KRISTEN Ritchie Primary Care Provider [phone] KRISTEN Ritchie Referring Provider Dr. Casey Wilkinson Attending Provider SHUKRI King Attending Provider Bhupinder PETERSON PA Usha Primary Care Provider Bhupinder PETERSON PA Usha Referring Provider Keith Frederick MD Primary Care Provider Bhupinder PETERSON PA Usha Primary Care Provider [phone] Bhupinder PETERSON PA Usha Referring Provider KRISTEN Lopez Attending Provider Keith Frederick MD Primary Care Provider KRISTEN Ritchie Primary Care Provider Bhupinder PETERSON PA Usha Referring Provider KRISTEN Lopez Attending Provider SHUKRI King Attending Provider [phone] Keith Frederick MD Primary Care Provider [phone] Dr. Manuel Noland Primary Care Provider Dr. Ag Villa Emergency Provider Dr. Ty Tang Admit Provider [phone] Dr. Ty Tang Attending Provider Dr. Ty Tang Other Provider [phone] Dr. Manuel Noland Referring Provider Dr. Manuel Noland Primary Care Provider Dr. Ag Villa Emergency Provider Dr. Ty Tang Admit Provider Dr. Ty Tang Attending Provider Dr. Ty Tang Other Provider Dr. Manuel Noland Referring Provider Keith Frederick MD Primary Care Provider Demetri AG.ANGELINA, Jennifer Unavailable Usha Roe PA-C Unavailable Dr. Keith Frederick MD Primary Care Provider Assessment, Health Risk Attending Provider Unava ilhannah Assessment, Health Risk Referring Provider Unava ilable Dr. Keith Frederick MD Attending Provider KEITH FREDERICK Attending Unavailable KEITH FREDERICK Primary Care Unavailable Keith Frederick Attending Unavailable Keith Frederick Primary Care Unavailable Assessment, Health Risk Attending Unavaila ble Assessment, Health Risk Referring Unavaila ble Keith Frederick Primary Care Unavailable Keith Frederick Attending Unavailable Keith Frederick Referring Unavailable Keith Frederick Primary Care Unavailable Usha Ritchie Consulting Unavailable Allergies Allergy Classification Reported Allergen(s) Allergy Type Date of Onset Reaction(s) Facility (20 sources) Adhesive agent; Translations: [ADHESIVE] Drug Allergy 06-03-2021 Unknown [facility] (1 source) Adhesive Tape Drug allergy (disorder) 11-01-2023 [facility] Repository Medications Current Medications Medication Drug Class(es) Dates Sig (Normalized) Sig (Original) acetaminophen 325 mg oral tablet (4 sources) Start: 09-24-2023 take 2 tablets by mouth every four hours as needed for pain Acetaminophen 325 mg Tablet Active 650 mg PO EVERY 4 HOURS NEEDED as needed for Pain Or Fever 0 0 September 24, 2023 1:00am Start: 01-28-2024 take 650 mg by mouth every four hours as needed Acetaminophen Active 650 MG PO EVERY 4 HOURS NEEDED 0 September 24, 2023 1:00am hydroCHLOROthiazide 12.5 mg oral capsule (3 sources) Thiazide Diuretic Start: 02-26-2025 take 1 capsule by mouth once daily hydroCHLOROthiazide 12.5 mg capsule Take 1 capsule by mouth once daily. 90 capsule 1 02/26/2025 Active MULTIVITAMIN ORAL (7 sources) MULTIVITAMIN ORA L Take by mouth. Active MULTIVITAMIN ORA L Take by mouth. 0 Active Comment on above: Take by mouth. Oscoda (Nk) (1 source) Start: 09-24-2023 Oscoda (Nk) Active September 24, 2023 12:00am Prenatabs FA (14 sources) Start: 01-03-2017 take 1 tablet by mouth once daily Prenatabs FA Active 1 TABLET PO DAILY January 03, 2017 8:05pm Start: 01-03-2017 End: 09-24-2023 Prenatabs FA Discontinued 1 {tbl} PO DAILY January 03, 2017 12:00am September 24, 2023 5:07am Check with primary doctor Start: 01-03-2017 End: 09-24-2023 take 1 tablet by mouth once daily Prenatabs FA Discontinued 1 TABLET PO DAILY January 03, 2017 12:00am September 24, 2023 5:07am Start: 01-03-2017 End: 09-24-2023 take 1 tablet by mouth once daily Prenatabs FA Discontinued 1 TABLET PO DAILY January 02, 2017 11:00pm September 24, 2023 4:07am Start: 01-03-2017 take 1 tablet by griselda th once daily Prenatabs FA Active 1 TABLET PO DAILY January 02, 2017 11:00pm Start: 01-03-2017 take 1 tablet by griselda th once daily Prenatabs FA Active 1 TABLET PO DAILY January 03, 2017 12:00am Completed/Discontinued Medications Medication Drug Class(es) Dates Sig (Normalized) Sig (Original) acetaminophen 325 mg / oxyCODONE hydrochloride 5 mg oral tablet (14 sources) Opioid Agonist Start: 01-06-2017 End: 08-11-2017 Oxycodone-Acetamino phen 1 TABLET tablet Discontinued 2 {tbl} PO EVERY 4 HOURS NEEDED as needed for Moderate-Severe pain 30 0 January 06, 2017 12:00am August 11, 2017 11:53am Start: 01-06-2017 End: 08-11-2017 take 2 tablets by mouth every four hours as needed Oxycodone-Acetaminophen Discontinued 2 TABLET PO EVERY 4 HOURS NEEDED January 06, 2017 12:00am August 11, 2017 11:53am amoxicillin 500 mg oral tablet (20 sources) Penicillin-class Antibacterial Start: 05-30-2019 End: 08-17-2021 take 1 tablet by mouth three times daily Amoxicillin 500 MG tablet Discontinued 500 mg PO THREE TIMES A DAY May 30, 2019 12:00am August 17, 2021 11:37am sinus infection Start: 05-24-2019 End: 05-28-2019 take 1 tablet by mouth three times daily Amoxicillin 500 MG tablet Discontinued 500 mg PO THREE TIMES A DAY May 24, 2019 12:00am May 28, 2019 9:25am amoxicillin 500 mg / clavulanate 125 mg oral tablet (20 sources) Penicillin-class Antibacterial Start: 07-02-2022 End: 07-15-2022 amoxicillin-clavulanic acid (AUGMENTIN) 500-125 mg per tablet Start: 07-02-2022 End: 07-12-2022 Amoxicillin-Pot Clavulanate 875-125 mg tablet Discontinued 1 {tbl} PO TWICE A DAY 20 July 02, 2022 12:00am July 11, 2022 1:00am July 12, 2022 1:04am Start: 07-02-2022 End: 07-12-2022 take 1 tablet by mouth twice daily Amoxicillin-Pot Clavulanate Discontinued 1 TABLET PO TWICE A DAY 16 06July 02, 2022 12:00am July 12, 2022 1:04am Start: 11-13-2021 End: 11-23-2021 Amoxicillin-Pot Clavulanate 875-125 mg tablet Discontinued 1 {tbl} PO TWICE A DAY November 13, 2021 12:00am November 22, 2021 12:00am November 23, 2021 12:03am Start: 11-13-2021 End: 11-23-2021 take 1 tablet by mouth twice daily Amoxicillin-Pot Clavulanate Discontinued 1 TABLET PO TWICE A DAY 16 06November 13, 2021 12:00am November 23, 2021 12:03am Start: 08-17-2021 End: 08-27-2021 Amoxicillin-Pot Clavulanate (Augmentin) 875-125 mg tablet Discontinued 1 {tbl} PO Q12H 20 10 0 August 17, 2021 1:00am August 26, 2021 1:00am August 27, 2021 1:01am Acute sinusitis, unspecified aspirin 81 mg delayed release oral tablet (20 sources) Platelet Aggregation Inhibitor, Nonsteroidal Anti-inflammatory Drug Start: 12-21-2021 End: 07-22-2022 take 1 tablet by mouth once daily aspirin, enteric coated (ASPIRIN, ENTERIC COATED) 81 mg EC tablet Take 1 tablet by mouth once daily. Start at 12 weeks. 0 12/21/2021 07/22/2022 Discontinued Start: 05-24-2019 End: 07-27-2022 take 1 tablet by mouth once daily Aspirin 81 MG tablet,chewable Discontinued 81 mg PO DAILY@0800 May 24, 2019 12:00am July 27, 2022 9:51am AMA Comment on above: Take 1 tablet by griselda th once daily. Start at 12 weeks. cephalexin 500 mg oral capsule (14 sources) Cephalosporin Antibacterial Start: 7 End: 7 take 1 capsule by mouth every twelve hours Cephalexin (Keflex) 500 mg capsule Discontinued 500 mg PO Q12H 20 10 0 August 11, 2017 1:00am August 20, 2017 1:00am August 21, 2017 1:05am CHOLECALCIFEROL, VITAMIN D3, ORAL (20 sources) End: CHOLECALCIFEROL, VITAMIN D3, ORAL Take by mouth as directed. 0 11/10/2023 Discontinued CHOLECALCIFEROL, VITAMIN D3, ORAL Take by mouth as directed. 0 Active Comment on above: Take by mouth as dir ected. ferrous sulfate 325 mg oral tablet (20 sources) Start: 05-11-2019 End: 09-24-2023 Ferrous Sulfate 325 MG tablet Discontinued 45 mg PO AT BEDTIME May 11, 2019 12:00am September 24, 2023 5:07am Check with primary doctor MON, MON, MON Start: 05-11-2019 End: 09-24-2023 take 45 mg by mouth at bedtime Ferrous Sulfate Discont inued 45 MG PO AT BEDTIME May 11, 2019 12:00am September 24, 2023 5:07am MON, MON, MON Start: 05-11-2019 take 325 mg by mouth every other day Ferrous Sulfate Active 325 MG PO EVERY OTHER DAY May 11, 2019 12:00am MON, MON, MON End: 11-10-2023 Ferrous Sulfate 142 mg (45 m g iron) TbER Take by mouth. 0 11/10/2023 Discontinued Comment on above: Take by mouth. 3 ml insulin isophane, human 100 unt/ml pen injector (20 sources) Start: 07-15-2022 End: 09-06-2022 insulin NPH human (NOVOLIN N FLEXPEN) 100 unit/mL (3 mL) injection pen Indications: 30 weeks gestation of , GDM, class A2 Inject 16 Units subcutaneously daily at bedtime. 3 mL 3 07/15/2022 09/06/2022 Discontinued Start: 06-02-2022 End: 07-15-2022 insulin NPH human (NOVOLIN N FLEXPEN) 100 unit/mL (3 mL) injection pen Indications: 30 weeks gestation of , GDM, class A2 Inject 12 Units subcutaneously daily at bedtime. 3 mL 3 06/02/2022 07/15/2022 Discontinued Start: 05-25-2022 End: 06-02-2022 inject 8 [IU] by subcutaneous injection once daily at bedtime insulin NPH human (NOVOLIN N FLEXPEN) 100 unit/mL (3 mL) injection pen Indications: 30 weeks gestation of , GDM, class A2 Inject 8 Units subcutaneously daily at bedtime. 3 mL 3 05/25/2022 06/02/2022 Discontinued Comment on above: Inject 8 Units subcu taneously daily at bedtime. Inject 12 Units subc utaneously daily at bedtime. Inject 16 Units subc utaneously daily at bedtime. multivit-min/iron/folic acid/K (ADULTS MULTIVITAMIN ORAL) (3 sources) End: 12-21-2021 multivit-min/iron/folic acid/K (ADULTS MULTIVITAMIN ORAL) Take by mouth as directed. 0 12/21/2021 Discontinued multivit-min/iro n/folic acid/K (ADULTS MULTIVITAMIN ORAL) Take by mouth as directed. 0 Active Comment on above: Take by mouth as dir ected. naproxen 250 mg oral tablet (14 sources) Nonsteroidal Anti-inflammatory Drug Start: 7 End: 7 take 250-500 mg by mouth every eight hours as needed for pain Naproxen 250 MG tablet Discontinued 250 - 500 mg PO EVERY 8 HOURS NEEDED as needed for MILD PAIN 30 0 January 06, 2017 12:00am August 11, 2017 11:53am Novolin 70-30 FlexPen U-100 (9 sources) Start: End: Novolin 70-30 FlexPen U-100 Discontinued 16 UNITS IJ AT BEDTIME June 30, 2022 12:00am July 27, 2022 9:51am Start: 06-30-2022 End: 07-27-2022 Novolin 70-30 FlexPen U-100 Discontinued 16 UNITS IJ AT BEDTIME June 29, 2022 11:00pm July 27, 2022 8:51am Start: 06-30-2022 Novolin 70-30 FlexPen U-100 Active 16 UNITS IJ AT BEDTIME June 29, 2022 11:00pm Start: 06-30-2022 Novolin 70-30 FlexPen U-100 Active 16 UNITS IJ AT BEDTIME June 30, 2022 12:00am Novolin 70-30 FlexPen U-100 pen injector (1 source) Start: 06-30-2022 End: 07-27-2022 Novolin 70-30 FlexPen U-100 pen injector Discontinued 16 U IJ AT BEDTIME June 30, 2022 12:00am July 27, 2022 9:51am GDM oxyCODONE hydrochloride 5 mg oral tablet (20 sources) Opioid Agonist Start: 09-24-2023 End: 10-06-2023 take 5-10 mg by mouth every four hours as needed for pain Oxycodone 5 mg Tablet Discontinued 5 - 10 mg PO EVERY 4 HOURS NEEDED as needed for Pain Score 4-10/10 20 5 0 September 24, 2023 October 06, 2023 3:19pm Calculus of gallbladder with acute cholecystitis Calculus of gallbladder with acute cholecystitis without obstruction Start: 07-27-2022 End: 09-24-2023 take 1 tablet by mouth every eight hours as needed for pain Oxycodone 5 MG tablet Discontinued 5 mg PO Q8H as needed for severe pain 10 7 0 July 27, 2022 September 24, 2023 5:07am Status post repeat low transverse section History of uterine scar from previous surgery Start: 05-31-2019 End: 06-05-2019 take 1 tablet by mouth every six hours as needed for pain Oxycodone 5 MG tablet Discontinued 5 mg PO EVERY 6 HOURS NEEDED as needed for Pain Score 4-10/10 10 3 0 May 31, 2019 June 02, 2019 12:00am June 05, 2019 12:09am Maternal care for unspecified type scar from previous delivery multivitamin (CLASSIC ) 28 mg iron- 800 mcg tab(s) (20 sources) End: 11-10-2023 take 1 tablet by mouth once daily multivitamin (CLASSIC ) 28 mg iron- 800 mcg tab(s) Take 1 tablet by mouth once daily. 0 11/10/2023 Discontinued take 1 tablet by mouth once thais y multivitamin (CLASSIC ) 28 mg iron- 800 mcg tab(s) Take 1 tablet by mouth once daily. 0 Active Comment on above: Take 1 tablet by griselda th once daily. Problems Active Problems Problem Classification Problem Date Documented Date Episodic/Chronic Bacterial infection; unspecified site (14 sources) Staphylococcal infectious disease; Translations: [Unspecified staphylococcus as the cause of diseases classified elsewhere] 08-04-2022 Episodic Biliary tract disease (9 sources) Calculus of gallbladder with acute cholecystitis; Translations: [Calculus of gallbladder with acute cholecystitis without obstruction] 09-24-2023 Episodic Diabetes mellitus without complication (2 sources) Hyperglycemia; Translations: [Hyperglycemia, unspecified] Onset: 02-26-2025 02-26-2025 Episodic Fracture of lower limb (3 sources) Fracture of calcaneus; Translations: [Unspecified fracture of left calcaneus, initial encounter for closed fracture] 11-01-2023 Episodic Immunizations and screening for infectious disease (1 source) Vaccination needed; Translations: [Encounter for immunization] Episodic Mycoses (14 sources) Tinea corporis; Translations: [Tinea corporis] 08-04-2022 Episodic Open wounds of extremities (14 sources) Laceration of finger; Translations: [Laceration without foreign body of unspecified finger without damage to nail, initial encounter] 06-11-2021 Episodic Other circulatory disease (5 sources) Elevated blood-pressure reading without diagnosis of hypertension; Translations: [Elevated blood-pressure reading, without diagnosis of hypertension] 09-24-2023 Episodic Other circulatory disease (4 sources) Elevated blood-pressure reading, without diagnosis of hypertension; Translations: [Elevated blood pressure reading without diagnosis of hypertension] 09-24-2023 Episodic Other complications of (1 source) Obesity complicating , second trimester; Translations: [Obesity complicating , childbirth, or the puerperium, antepartum condition or complication] Chronic Other complications of (1 source) Anemia during - baby not yet delivered; Translations: [Anemia complicating , unspecified trimester] Chronic Other liver diseases (3 sources) Alkaline phosphatase raised; Translations: [Abnormal levels of other serum enzymes] 02-26-2025 Episodic Other liver diseases (3 sources) Abnormal levels of other serum enzymes; Translations: [Elevated alkaline phosphatase level] Onset: 02-26-2025 Episodic Other screening for suspected conditions (not mental disorders or infectious disease) (20 sources) Patient encounter status; Translations: [Encounter for screening for diabetes mellitus] Onset: 02-17-2015 Resolved: 09-06-2022 06-22-2021 Episodic Other upper respiratory disease (14 sources) Respiratory tract congestion; Translations: [Nasal congestion] 08-04-2022 Episodic Other upper respiratory infections (20 sources) Acute sinusitis; Translations: [Acute sinusitis, unspecified] Episodic Residual codes; unclassified (1 source) Gestation [...] gestation of ] Episodic Residual codes; unclassified (9 sources) Gestation period, 35 weeks; Translations: [35 weeks gestation of ] 08-04-2022 Episodic Residual codes; unclassified (3 sources) 35 weeks gestation of ; Translations: [ state, incidental] Episodic Residual codes; unclassified (8 sources) Gestation period, 37 weeks; Translations: [37 weeks gestation of ] Episodic Residual codes; unclassified (8 sources) Gestation period, 38 weeks; Translations: [38 weeks gestation of ] Episodic Residual codes; unclassified (2 sources) 37 weeks gestation of ; Translations: [ state, incidental] Episodic Residual codes; unclassified (2 sources) 38 weeks gestation of ; Translations: [ state, incidental] Episodic Residual codes; unclassified (1 source) History of uterine scar from previous surgery; Translations: [Other postprocedural status] 07-27-2022 Episodic Residual codes; unclassified (2 sources) Acquired absence of other specified parts of digestive tract; Translations: [Other acquired absence of organ] 10-06-2023 Episodic Screening and history of mental health and substance abuse codes (2 sources) Encounter for screening for depression; Translations: [Encounter for screening examination for other mental health and behavioral disorders] Onset: 02-26-2025 Episodic Sprains and strains (3 sources) Sprain of left ankle; Translations: [Sprain of unspecified ligament of left ankle, initial encounter] 11-01-2023 Episodic Past or Other Problems Problem Classification Problem Date Documented Da te Episodic/Chronic Diabetes or abnormal glucose tolerance complicating ; childbirth; or the puerperium (20 sources) History of gestational diabetes mellitus; Translations: [Personal history of gestational diabetes] Onset: 04-10-2019 Resolved: 08-02-2022 06-22-2021 Episodic Female infertility (12 sources) Female infertility; Translations: [Female infertility, unspecified] Onset: 09-24-2015 Resolved: 11-13-2018 12-27-2016 Chronic Other complications of (20 sources) Anemia of ; Translations: [Anemia complicating , unspecified trimester] Onset: 04-10-2019 Resolved: 08-02-2022 05-09-2022 Chronic Other complications of (20 sources) ; Translations: [Supervision of with history of infertility, unspecified trimester] Onset: 12-09-2021 Resolved: 09-06-2022 Episodic Other complications of (20 sources) Multigravida of advanced maternal age; Translations: [Supervision of elderly multigravida, unspecified trimester] Onset: 11-13-2018 Resolved: 08-02-2022 Episodic Other complications of (20 sources) History of delivery of macrosomal ; Translations: [Supervision of with other poor reproductive or obstetric history, unspecified trimester] Onset: 12-09-2021 Resolved: 08-02-2022 Episodic Other complications of (6 sources) Supervision of resulting from assisted reproductive technology, third trimester; Translations: [ resulting from assisted reproductive technology] Onset: 05-10-2016 Resolved: 02-15-2017 08-24-2021 Episodic Other complications of (6 sources) Abnormal placenta affecting management of mother; Translations: [Other malformation of placenta, unspecified trimester] Onset: 03-29-2019 Resolved: 07-18-2019 07-18-2019 Episodic Other and delivery including normal (20 sources) Early stage of ; Translations: [Encounter for supervision of normal , unspecified, unspecified trimester] Onset: 12-27-2016 Resolved: 07-18-2019 Episodic Polyhydramnios and other problems of amniotic cavity (6 sources) Polyhydramnios; Translations: [Polyhydramnios, third trimester, not applicable or unspecified] Onset: 04-24-2019 Resolved: 07-18-2019 07-18-2019 Episodic Unclassified (1 source) Patient encounter status 02-26-2025 Results Test Name Value Interpretation Reference Range [facility] KIRST[facility] SANTIAGO ([id number]) 1980 F Date Time Provider Department 03/17/25 KEITH FREDERICK During your visit today, we recorded the following information about you: Kunal Ibanez LPN 03/17/2025 8:16 AM Signed Received lab results done at [facility] ordered by PCP. Kunal Ibanez LPN Scan on 03/15/2025 9:34 AM by Provider, NITA LeesC: Usha Lauren PA-C 03/18/2025 2:25 PM Signed Let patient know that alk phos was high but the breakdown of each fraction is in normal range. Given the elevated GGT though, I would recommend a simple US of the Liver just to make sure everything looks okay. Order placed. SAUL Paris Sherill A, LPN 03/18/2025 2:54 PM Signed Left message for pt to contact office. EVONNE Beatty Beth, LPN 03/20/2025 2:24 PM Signed Patient returned call and went over results, notes from Usha PETERSON with understanding. Patient asking to have ultrasound order faxed to [facility] please. Printed order, face sheet, insurance card copy and faxed to [phone] as requested. Allergies As of Date: 03/17/2025 Noted Allergy Reaction ADHESIVE 06/03/2021 16 - Unknown Date Reviewed: 02/26/2025 Reviewed by: Keith Frederick MD - Fully Assessed Reason for Visit: Results [95] Primary Visit Diagnosis:Elevated alkaline phosphatase level [R74.8] Order(s):US ABD RIGHT UPPER QUADRANT [2680817] Order #: [id number] FUTURE Prescriptions as of 03/20/2025 - hydroCHLOROthiazide 12.5 mg capsule Take 1 capsule by mouth once daily. - MULTIVITAMIN ORAL Take by mouth. Problem List As Of Date 03/17/2025 Noted Resolved Infertility counseling [Z31.69] 02/17/2015 10/24/2015 [...] 08/02/2022 Anemia in [O99.019] 05/09/2022 08/02/2022 Encounter for gynecological examination [Z01.41*11/10/2023 Encounter for screening for diabetes mellitus [*11/10/2023 Encounter for screening mammogram for breast ca*02/26/2025 Encounter Status:Closed by LOU MIRANDA on 03/20/25 Normal [facility] MICHELLE Martinez Isoenzymeon 07-19-2 025 ALK PHOS, S [facility] Comment on above: Result Comment: TEST RESULTS LIMITS Alk Phos Isoenzyme Alkaline Phosphatase 149 High IU/L 44-121 Liver Fraction: 74 % 18-85 Bone Fraction: 23 % 14-68 Intestinal Frac.: 2 % 0-18 [facility] ORIGINAL REPORT ON FILE IN LAB CONTAINS ADDITIONAL TEST SITE INFORMATION. Performed By: #### L 3250.0100 #### [facility] [address] [place], [address] [facility] 02-27-2025 [facility] Telephone ([facility]) KIRSTY SANTIAGO ([id number]) 1980 F Date Time Provider Department 02/27/[address] [facility] During your visit today, we recorded the following information about you: Kunal Ibanez LPN 02/27/2025 2:00 PM Addendum Received lab results done at [facility] ordered by PCP. Kunal Ibanez LPN Scan on 02/27/2025 12:35 PM by Provider, External, PAMatildaC: Chemistry View External Labs - GGTP [ID [id number]] View External Labs - Alk Phos, A1c [ID [id number]] Karyn Calhoun MA 02/27/2025 3:42 PM Signed Type of form: Wellness Form - Healthy living program - [facility]. Pt faxed this and stated she forgot this form to be completed from her appt on 02/26/25. Asking PCP to complete and fax back to number on form. Will update pt via [facility] or with results. Form received via fax When form is completed, Fax form to [facility] - , F#: [phone] Form has been forwarded to Physician Desk: CARROLL Goldstein Jeffrey A, MD 02/27/2025 5:51 PM Signed Form completed. Karyn Calhoun MA 02/27/2025 6:07 PM Signed Form faxed back to number below. CARROLL Barnes Jeffrey A, MD 03/03/2025 7:58 AM Signed See if the alk Phos isoenzymes results are back yet. If not contact [facility] and see if they did the Alk Phos isoenzymes as ordered? Karyn Calhoun MA 03/03/2025 11:22 AM Signed See results in your inbox, top tray. CARROLL Barnes Jeffrey A, MD 03/06/2025 3:46 PM Signed Addressed in separate encounter. Allergies As of Date: 02/27/2025 Noted Allergy Reaction ADHESIVE 06/03/2021 16 - Unknown Date Reviewed: 02/26/2025 Reviewed by: Keith Frederick MD - Fully Assessed Reason for Visit: Results [95] Forms [913] Cmt: Wellness Prescriptions as of 03/06/2025 - hydroCHLOROthiazide 12.5 mg capsule Take 1 capsule by mouth once daily. - MULTIVITAMIN ORAL Take by mouth. Problem List As Of Date 02/27/2025 Noted Resolved Infertility counseling [Z31.69] 02/17/2015 10/24/2015 [...] 08/02/2022 Anemia in [O99.019] 05/09/2022 08/02/2022 Encounter for gynecological examination [Z01.41*11/10/2023 Encounter for screening for diabetes mellitus [*11/10/2023 Encounter for screening mammogram for breast ca*02/26/2025 Encounter Status:Closed by KEITH FREDERICK on 03/06/25 Normal [facility] [id number] 02-27-2025 [facility] Misc. COMMENT Normal . [facility] Comment on above: Order Comment: [id number] 0 M2 AB TIGER RT Result Comment: Test Ordered: [id number] Mitochondrial (M2) Antibody Mitochondrial (M2) Antibody <20.0 Units CB Reference Range: 0.0-20.0 Negative 0.0 - 20.0 Equivocal 20.1 - 24.9 Positive >24.9 Mitochondrial (M2) Antibodies are found in 90-96% of patients with primary biliary cirrhosis. Performed at: [address] [id number] Marketing Sales Supervisor: Ernie Baca PhD, Phone: [phone] Performed By: #### L 501.9985, L501.5101, L3410.9992, L501.4305 #### [facility] [address] [place], [place], [id number] L501.5101on 02-27-2025 GGTP 99 IU/L Abnormal 0-60 [facility] Comment on above: Result Comment: Perf ormed at: [address] [id number] Marketing Sales Supervisor: Ernie Baca PhD, Phone: [phone] Performed By: #### L 501.9985, L501.5101, L3410.9992, L501.4305 #### [facility] [address] [place], [address] Alkaline Phosphataseon 02-26 ALK PHOS 148 U/L High 35-104 [facility] Comment on above: Performed By: #### L 501.9985, L501.5101, L3410.9992, L501.4305 #### [facility] [address] [place], [place], [id number] CNOVon 02-26-2025 CNOV Office Visit (FAMPWS ) KIRSTY SANTIAGO ([id number]) 1980 F Date Time Provider Department 02/26/25 9:00 AM KEITH FREDERICK During your visit today, we recorded the following information about you: Pulse Respiration Blood pressure Weight 70/minute 16/minute 116/76 74.8 kg Height 1.511 m Keith Frederick MD 02/26/2025 10:12 AM Signed Chief Complaint Patient presents with: Well Adult HPI Kirsty Santiago is a 44 year old female who presents here today for a Physical. Patient with Hx of elevated LFT's as well as those reviewed and addressed below in ROS. HM - Depression/Anxiety screening completed, negative. Requesting printed order for Mammogram completes through [facility]. Declines Covid vaccine. Kirsty reports experiencing right upper quadrant discomfort, which she attributes to dairy consumption. She denies any recent fevers, frequent headaches, sudden changes in hearing or vision, issues with her nose or throat, lumps or swelling in her neck, wheezing, hemoptysis, or productive cough. She also denies chest pain, palpitations, nausea, emesis, diarrhea, heartburn, dysuria, hematuria, myalgias, arthralgias, skin lesions, rashes, sores, easy bruising or bleeding, changes in heat or cold tolerance, increased thirst, syncope, seizures, or tremors. She also reports bilateral lower extremity edema, which worsens towards the end of the day and improves overnight. She notes that her legs are more swollen than they used to be, even on her days off. She wears BRO hose during the day at work. She expresses interest in trying a diuretic to see if it can lessen the swelling. Kirsty had a cholecystectomy last year and has been doing well since then. She denies any new health issues in her blood relatives. She has one sister, Patience, and two brothers, Jeremie and Zan. Past medical history, appointments, medications, allergies reviewed. Previous Medical History PAST MEDICAL HISTORY Diagnosis Date Antepartum anemia (HCC) 04/10/2019 Diet controlled gestational diabetes mellitus (GDM) in third trimester (HCC) 04/16/2019 Encounter for lipid screening for cardiovascular disease 11/10/2023 Encounter for screening for diabetes mellitus 11/10/2023 infertility Infertility, female Previous Surgical History PAST SURGICAL HISTORY Procedure Laterality Date DELIVERY ONLY 01/05/2017 DELIVERY ONLY 05/30/2019 RC/S DI/di twins, low transverse DELIVERY ONLY 07/26/2022 LTCS IVF PACKAGE REMOVAL GALLBLADDER 09/24/2023 UNSPECIFIED ORAL SURGERY PROCEDURE, BY REPORT [place] teeth extracted Family History FAMILY HISTORY Problem Relation Age of Onset Hypertension Mother Ulcerative Colitis Mother Hypertension Father Allergies Father other (Limbic Encephilitis) Father other (Epilepsy) Father No Known Problems Sister No Known Problems Brother No Known Problems Brother Cancer Maternal Grandmother multiple myeloma Cancer Maternal Grandfather Prostate cancer Genitourinary () Maternal Grandfather On dialysis COPD Paternal Grandmother Hypertension Paternal Grandmother Heart Paternal Grandmother No Known Problems Daughter No Known Problems Daughter No Known Problems Son Breast Cancer Paternal Aunt Asthma Paternal Aunt Paternal side of family other (pcos) Paternal Aunt Patient Allergies ALLERGIES Allergen Reactions Adhesive Unknown Current Medications Current Outpatient Medications on File Prior to Visit Medication Sig MULTIVITAMIN ORAL Take by mouth. No current facility-administered medications on file prior to visit. Social History Social History Tobacco Use Smoking status: Never Smokeless tobacco: Never Vaping Use Vaping status: Never Used Substance Use Topics Alcohol use: Yes Comment: Rarely, not while Drug use: No Review of Symptoms REVIEW OF SYSTEMS GENERAL: No weight loss, malaise or fevers HEENT: Negative for frequent or significant headaches, No changes in hearing or vision, no nose bleeds or other nasal problems NECK: Negative for lumps, goiter, pain and significant neck swelling RESPIRATORY: Negative for cough, hemoptysis, wheezing, COPD, dyspnea or shortness of breath CARDIOVASCULAR: Negative for chest pain, some leg swelling worse at the end of the day and wears bro hose. leg swelling, hypertension, CHF or palpitations GI: No nausea, vomiting, or diarrhea and No heartburn or reflux symptoms : No history of dysuria, frequency or blood MUSCULOSKELETAL: Negative for joint pain or swelling, back pain or muscle pain SKIN: Negative for lesions, rash, and itching PSYCH: Negative for sleep disturbance, mood disorder and recent psychosocial stressors HEMATOLOGY/LYMPHOLOGY: Negative for prolonged bleeding, bruising easily or swollen nodes ENDOCRINE: Negative for cold or heat intolerance, polyuria, belem (more content not included)... Normal [facility] Gamma glutamyl transferase ( GGT) measurementOrdered By: Keith Frederick on 02-26-2025 Amylase [Catalytic activity/Vol] 99 U/L High 0-60 [facility] Comment on above: Performed at: [facility] [id number] [place], [place] [id number] Director: Ernie Baca PhD, Phone: [phone] Hemoglobin A1con 02-26-2025 HbA1c (Bld) [Mass fraction] 5.6 % Normal <=5.6 [facility] Comment on above: Result Comment: Norm al < 5.7 % Prediabetic 5.7 - 6.4 % Diabetic >or= 6.5 % Please note range changes. Performed By: #### L 501.9985, L501.5101, L3410.9992, L501.4305 #### [facility] [address] [place], [address] Hemoglobin A1c percentageOrd ered By: Keith Frederick on 02-26-2025 HbA1c (Bld) [Mass fraction] 5.6 % <5.7 [facility] Comment on above: Normal < 5.7 % Predi abetic 5.7 - 6.4 % Diabetic >or= 6.5 % Please note range changes. Serum or plasma alkaline patti sphatase measurementOrdered By: Keith Frederick on 02-26-2025 ALP [Catalytic activity/Vol] 148 U/L High 35-104 [facility] Absolute lymphocyte countOrd ered By: HEALTH ASSESSMENT on 02-25-2025 Lymphocytes Auto (Unsp spec) [#/Vol] 3.35 10*3/uL 0.83-4.51 [facility] Absolute neutrophil countOrd ered By: HEALTH ASSESSMENT on 02-25-2025 Neutrophils (Bld) [#/Vol] 4.3 10*3/uL 2.0-7.7 [facility] Absolute nucleated red blood cell countOrdered By: HEALTH ASSESSMENT on 02-25-2025 Nucleated RBC (Bld) [#/Vol] 0.00 10*3/uL 0-5 [facility] Anion gap in Serum or Plasma Ordered By: HEALTH ASSESSMENT on 02-25-2025 Anion gap [Moles/Vol] 11 mmol/L 5-15 [facility] Automated blood hematocrit ( percentage)on 02-25-2025 Hematocrit (Bld) [Volume fraction] 39.6 % Normal 37-47 [facility] Comment on above: Performed By: #### L 100.0200, L400.0100, L500.2900 #### [facility] [address] [place], [place], [id number] BUN/creatinine ratioOrdered By: HEALTH ASSESSMENT on 02-25-2025 Urea nitrogen/Creatinine [Mass ratio] 21.9 mg/mg High 10-20 [facility] Bilirubin Test strip Ql (U)O rdered By: HEALTH ASSESSMENT on 02-25-2025 Bilirubin Ql (U) Negative Negative [facility] Bilirubin directOrdered By: HEALTH ASSESSMENT on 02-25-2025 Bilirubin.direct [Mass/Vol] 0.11 mg/dL 0.00-0.30 [facility] Bilirubin, totalOrdered By: HEALTH ASSESSMENT on 02-25-2025 Bilirubin [Mass/Vol] 0.24 mg/dL 0.00-1.30 [facility] CBC W/DIFF/PLT (EXTERNAL LAB DONALD)on 02-25-2025 BASO ABSOLUTE [facility] EOS ABSOLUTE [facility] Eosinophils/100 WBC (Bld) 3 % [facility] Immature Gran % [facility] IMMATURE GRANS ABSOLUTE [facility] LYMPHS ABSOLUTE 3.35 Abnormal [facility] MCH 30.5 Pg 26.6 - 33 Pg [facility] MONOCYTES ABSOLUTE [facility] NEUTROPHILS ABSOLUTE 4.3 [facility] RBC (Bld) [#/Vol] 4.3 10*6/uL [facility] CBC, Employeeon 02-25-2025 Absolute Lymph 3.35 X10 3/uL Normal 0.83-4.51 [facility] Comment on above: Performed By: #### L 100.0200, L400.0100, L500.2900 #### [facility] [address] [place], [place], [phone] ([phone]) Absolute Neut 4.3 X10 3/uL Normal 2.0-7.7 [facility] Comment on above: Performed By: #### L 100.0200, L400.0100, L500.2900 #### [facility] [address] [place], [address] Basophils/100 WBC (Bld) 0.8 % Normal 0-1 [facility] Comment on above: Performed By: #### L 100.0200, L400.0100, L500.2900 #### [facility] [address] [place], [address] Eosinophils/100 WBC (Bld) 3.0 % Normal 0-5 [facility] Comment on above: Performed By: #### L 100.0200, L400.0100, L500.2900 #### [facility] [address] [place], [address] Lymphocytes/100 WBC (Bld) 38.7 % Normal 19-41 [facility] Comment on above: Performed By: #### L 100.0200, L400.0100, L500.2900 #### [facility] [address] [place], [address] MCH (RBC) [Entitic mass] 30.5 pg Normal 27.0-32.0 [facility] Comment on above: Performed By: #### L 100.0200, L400.0100, L500.2900 #### [facility] [address] [place], [address] Monocytes/100 WBC (Bld) 7.1 % Normal 0-10 [facility] Comment on above: Performed By: #### L 100.0200, L400.0100, L500.2900 #### [facility] [address] [place], [address] NRBC # 0.00 10 3/uL Normal 0-5 [facility] Comment on above: Performed By: #### L 100.0200, L400.0100, L500.2900 #### [facility] [address] [place], [address] Nucleated RBC (Bld) [#/Vol] 0 10*3/uL Normal 0-5 [facility] Comment on above: Performed By: #### L 100.0200, L400.0100, L500.2900 #### [facility] [address] [place], [address] Platelet mean volume (Bld) [Entitic vol] 9.4 fL Normal 6.2-12.0 [facility] Comment on above: Performed By: #### L 100.0200, L400.0100, L500.2900 #### [facility] [address] [place], [address] RBC (Bld) [#/Vol] 4.30 10*6/uL Normal 4.2-5.4 [facility] Comment on above: Performed By: #### L 100.0200, L400.0100, L500.2900 #### [facility] [address] [place], [address] RDW SD 41.5 fl Normal 35.1-43.9 [facility] Comment on above: Performed By: #### L 100.0200, L400.0100, L500.2900 #### [facility] [address] [place], [address] CMP (EXTERNAL)on 02-25-2025 Alk Phos Total 152 U/L Abnormal 45 - 117 U/L [facility] Bili Total 0.24 mg/dL 0.2 - 1 mg/dL [facility] Direct Bilirubin 0.11 0.00 - 0.3 [facility] GFR 112 mL/MIN [facility] GFR AFR AMER [facility] Potassium [Moles/Vol] 4.1 mmol/L 3.5 - 5.1 mmol/L [facility] Irvin 02-25-2025 ANGELINAN Telephone (FAMPWS) KIRSTY SANTIAGO ([id number]) 1980 F Date Time Provider Department 02/25/25 KEITH FREDERICK During your visit today, we recorded the following information about you: Karyn Calhoun MA 02/25/2025 9:58 AM Signed Office has received outside lab results ordered by PCP. Pt has upcoming appt scheduled for 02/26/25. Please review for upcoming appt. Karyn Calhoun MA View External Labs - CBC [ID [id number]] View External Labs - Chemistry [ID [id number]] Allergies As of Date: 02/25/2025 Noted Allergy Reaction ADHESIVE 06/03/2021 16 - Unknown Date Reviewed: 11/12/2023 Reviewed by: Keith Frederick MD - Fully Assessed Reason for Visit: Results [95] Prescriptions as of 02/25/2025 - MULTIVITAMIN ORAL Take by mouth. Problem List As Of Date 02/25/2025 Noted Resolved Infertility counseling [Z31.69] 02/17/2015 10/24/2015 [...] 08/02/2022 Anemia in [O99.019] 05/09/2022 08/02/2022 Encounter for gynecological examination [Z01.41*11/10/2023 Encounter for screening for diabetes mellitus [*11/10/2023 Encounter Status:Closed by KARYN CALHOUN on 02/25/25 Normal [facility] Calculated very low density lipoprotein (VLDL) cholesterol measurementOrdered By: HEALTH ASSESSMENT on 02-25-2025 Calculated very low density lipoprotein (VLDL) cholesterol measurement 30 mg/dL 5-40 [facility] Carbon dioxide, total [Moles /volume] in Central venous bloodon 02-25-2025 CO2 [Moles/Vol] 23.8 mmol/L 21.0-32.0 [facility] Chloride assayon 02-25-2025 Chloride [Moles/Vol] 102 mmol/L 98-108 [facility] Erythrocyte distribution wid th ratioon 02-25-2025 Erythrocyte distribution width (RBC) [Ratio] 12.4 % Normal 11.6-14.6 [facility] Comment on above: Performed By: #### L 100.0200, L400.0100, L500.2900 #### [facility] [place], [address] Erythrocyte distribution wid th standard deviationOrdered By: HEALTH ASSESSMENT on 02-25-2025 Erythrocyte distribution width (RBC) [Ratio] 41.5 fl 35.1-43.9 [facility] Glomerular filtration rate ( GFR) estimation/1.73 sq m using serum, plasma, or whole bOrdered By: HEALTH ASSESSMENT on 02-25-2025 GFR/1.73 sq M.predicted among non-blacks MDRD (S/P/Bld) [Vol rate/Area] 112 mL/min/{1.73_m2} >60 [facility] Comment on above: mL/min/1.73m2 CKD-EP I Creatinine Equation (2020) Hemoglobin measurementon Hemoglobin (Bld) [Mass/Vol] 13.1 g/dL Normal 12.0-15.0 [facility] Comment on above: Performed By: #### L 100.0200, L400.0100, L500.2900 #### [facility] [address] [place], [address] Ketones Test strip Ql (U)Ord ered By: HEALTH ASSESSMENT on 02-25-2025 Ketones Ql (U) Negative Negative [facility] LIPID PANEL (OUTSIDE)on LDL:HDL Ratio [facility] Non-HDL Cholesterol [facility] TC:HDL Ratio [facility] VLDL Cholesterol [facility] - Chemistry and C hemistry - challengeon 02-25-2025 AST [Catalytic activity/Vol] 22 U/L <32 [facility] Lactate dehydrogenase (LDH) measurementOrdered By: HEALTH ASSESSMENT on 02-25-2025 LDH [Catalytic activity/Vol] 148 U/L 84-246 [facility] MCV (mean corpuscular volume ) determinationon 02-25-2025 MCV (RBC) [Entitic vol] 92.1 fL Normal 81-99 [facility] Comment on above: Performed By: #### L 100.0200, L400.0100, L500.2900 #### [facility] [address] [place], [address] Mean corpuscular hemoglobin (MCH) determinationOrdered By: HEALTH ASSESSMENT on 02-25-2025 MCH (RBC) [Entitic mass] 30.5 pg 27.0-32.0 [facility] Mean corpuscular hemoglobin concentration (MCHC) determinationon 02-25-2025 MCHC (RBC) [Mass/Vol] 33.1 g/dL Normal 32-36 [facility] Comment on above: Performed By: #### L 100.0200, L400.0100, L500.2900 #### [facility] [address] [place], [place], [id number] Mean platelet volume determi nationOrdered By: HEALTH ASSESSMENT on 02-25-2025 Platelet mean volume (Bld) [Entitic vol] 9.4 fL 6.2-12.0 [facility] Neutrophil percentageon Neutrophils/100 WBC (Bld) 49.8 % Normal 47-70 [facility] Comment on above: Performed By: #### L 100.0200, L400.0100, L500.2900 #### [facility] [address] [place], [address] Nitrite Test strip Ql (U)Ord ered By: HEALTH ASSESSMENT on 02-25-2025 Nitrite Ql (U) Negative Negative [facility] No Panel Informationon 02-25 Interpretation and review of laboratory results Abnormal [facility] Nucleated red blood cell per centageOrdered By: HEALTH ASSESSMENT on 02-25-2025 Nucleated RBC/100 WBC (Bld) [Ratio] 0 % 0-5 [facility] Platelet counton 02-25-2025 Platelets (Bld) [#/Vol] 380 10*3/uL Normal 150-450 [facility] Comment on above: Performed By: #### L 100.0200, L400.0100, L500.2900 #### [facility] [address] [place], [place], [id number] Potassium measurement (mass/ volume)Ordered By: HEALTH ASSESSMENT on 02-25-2025 Potassium (Unsp spec) [Mass/Vol] 4.1 mmol/L 3.3-5.1 [facility] Protein Test strip Ql (U)Ord ered By: HEALTH ASSESSMENT on 02-25-2025 Protein Ql (U) 15 mg/dl High Negative [facility] RBC Auto (Bld) [#/Vol]Ordere d By: HEALTH ASSESSMENT on 02-25-2025 RBC (Bld) [#/Vol] 4.30 10*6/uL 4.2-5.4 [facility] Screening total cholesterol/ high density lipoprotein (HDL) cholesterol ratioOrdered By: HEALTH ASSESSMENT on 02-25-2025 Cholesterol.total/Randa sterol in HDL [Mass ratio] 3.93 {ratio} [facility] Serum creatinine measurement (mass/volume)on 02-25-2025 Creatinine [Mass/Vol] 0.65 mg/dL Low 0.70-1.20 [facility] Serum globulin measurementOr dered By: HEALTH ASSESSMENT on 02-25-2025 Globulin (S) [Mass/Vol] 2.6 g/dL 2.2-4.2 [facility] Serum glucose measurement (m ass/volume)on 02-25-2025 Glucose [Mass/Vol] 108 mg/dL High 70-99 [facility] Serum or plasma alanine ring otransferase (ALT) measurementon 02-25-2025 ALT [Catalytic activity/Vol] 25 U/L <35 [facility] Serum or plasma albumin wagner urement (mass/volume)on 02-25-2025 Albumin [Mass/Vol] 4.3 g/dL 3.5-5.0 [facility] Serum or plasma albumin/glob ulin mass ratioOrdered By: HEALTH ASSESSMENT on 02-25-2025 Albumin/Globulin [Mass ratio] 1.6 {ratio} 0.9-2.4 [facility] Serum or plasma alkaline patti sphatase measurementOrdered By: HEALTH ASSESSMENT on 02-25-2025 ALP [Catalytic activity/Vol] 152 U/L High 35-104 [facility] Serum or plasma calcium wagner urement (mass/volume)on 02-25-2025 Calcium [Mass/Vol] 9.4 mg/dL 7.6-11.0 [facility] Serum or plasma cholesterol in HDL measurement (mass/volume)on 02-25-2025 Cholesterol in HDL [Mass/Vol] 54 mg/dL >40 [facility] Comment on above: National Cholesterol Education Program (NCEP) guidelines:<40 mg/dL: Low HDL-cholesterol (major risk factor for CHD)>= 60 mg/dL: High HDL-cholesterol (negative risk factor for CHD)HDL-cholesterol is affected by a number of factors, e.g. smoking, exercise, hormones, sex and age. Serum or plasma cholesterol in LDL measurement (mass/volume)on 02-25-2025 Cholesterol in LDL [Mass/Vol] 129 mg/dL Normal 0-130 [facility] Comment on above: Performed By: #### L 100.0200, L400.0100, L500.2900 #### [facility] [address] [place], [place], [id number] Serum or plasma cholesterol measurement (mass/volume)on 02-25-2025 Cholesterol [Mass/Vol] 213 mg/dL High <201 [facility] Comment on above: Cholesterol level, D esirable <200 mg/dLBorderline high cholesterol 200-239 mg/dLHigh cholesterol >=240 mg/dLRecommendations of the NCEP Adult Treatment Panel for the following risk-cutoff thresholds for the [place] population. Serum or plasma urea nitroge n measurement (mass/volume)on 02-25-2025 Urea nitrogen [Mass/Vol] 14 mg/dL 4-19 [facility] Serum or plasma uric acid me asurement (mass/volume)Ordered By: HEALTH ASSESSMENT on 02-25-2025 Urate [Mass/Vol] 4.3 mg/dL 2.6-6.0 [facility] Comment on above: The drugs N-Acetylcy steine and Metamizole may falsely depress this assay. Sodium levelon 02-25-2025 Sodium [Moles/Vol] 137 mmol/L 133-145 [facility] Total proteinon 02-25-2025 Protein [Mass/Vol] 6.9 g/dL 5.9-8.4 [facility] Triglycerides measurementon 02-25-2025 Triglyceride [Mass/Vol] 152 mg/dL <199 [facility] Comment on above: The drugs N-Acetylcy steine and Metamizole may falsely depress this assay. Normal range: <150 mg/dLBorderline High: 150-199 mg/dLHigh: 200-499 mg/dLVery High: >500 mg/dL Urinalysis, Employeeon 02-25 BILIRUBIN URINE Negative Normal Negative [facility] Comment on above: Order Comment: Urine , Random Performed By: #### L 100.0200, L400.0100, L500.2900 #### [facility] [address] [place], [address] Clarity (U) Sl. Cloudy Normal Clear [facility] Comment on above: Order Comment: Urine , Random Performed By: #### L 100.0200, L400.0100, L500.2900 #### [facility] [address] [place], [address] Color (U) Yellow Normal Yellow [facility] Comment on above: Order Comment: Urine , Random Performed By: #### L 100.0200, L400.0100, L500.2900 #### [facility] [address] [place], [address] GLUCOSE, UR Normal Normal Normal [facility] Comment on above: Order Comment: Urine , Random Performed By: #### L 100.0200, L400.0100, L500.2900 #### [facility] [address] [place], [address] KETONE UR Negative Normal Negative [facility] Comment on above: Order Comment: Urine , Random Performed By: #### L 100.0200, L400.0100, L500.2900 #### [facility] [address] [place], [address] LEUK ESTERASE Negative Normal Negative [facility] Comment on above: Order Comment: Urine , Random Performed By: #### L 100.0200, L400.0100, L500.2900 #### [facility] [address] [place], [address] Nitrite Ql (U) Negative Normal Negative [facility] Comment on above: Order Comment: Urine , Random Performed By: #### L 100.0200, L400.0100, L500.2900 #### [facility] [address] [place], [address] OCCULT BLOOD-UR Negative Normal Negative [facility] Comment on above: Order Comment: Urine , Random Performed By: #### L 100.0200, L400.0100, L500.2900 #### [facility] [address] [place], [address] pH UR 6.0 Normal 5.0 - 8.0 [facility] Comment on above: Order Comment: Urine , Random Performed By: #### L 100.0200, L400.0100, L500.2900 #### [facility] [address] [place], [address] PROT DIPSTX 15 mg/dl Abnormal Negative [facility] Comment on above: Order Comment: Urine , Random Performed By: #### L 100.0200, L400.0100, L500.2900 #### [facility] [address] [place], [address] SP.GR. DIPSTX 1.025 Normal 1.002-1.030 [facility] Comment on above: Order Comment: Urine , Random Performed By: #### L 100.0200, L400.0100, L500.2900 #### [facility] [address] [place], [address] UROBILI Normal Normal Normal [facility] Comment on above: Order Comment: Urine , Random Performed By: #### L 100.0200, L400.0100, L500.2900 #### [facility] [address] [place], [address] Urine clarityOrdered By: [facility] ASS[facility] on 02-25-2025 Clarity (U) Sl. Cloudy Clear [facility] Urine color determinationOrd ered By: HEALTH ASSESSMENT on 02-25-2025 Color (U) Yellow Yellow [facility] Urine glucose detectionOrder ed By: HEALTH ASSESSMENT on 02-25-2025 Glucose Ql (U) Normal mg/dl Normal [facility] Urine leukocyte esterase det ection by dipstickOrdered By: HEALTH ASSESSMENT on 02-25-2025 Leukocyte esterase Test strip Ql (U) Negative Negative [facility] Urine pHOrdered By: HEALTH A SSESSMENT on 02-25-2025 pH (U) 6.0 [pH] 5.0 - 8.0 [facility] Urine specific gravity measu rementOrdered By: HEALTH ASSESSMENT on 02-25-2025 Specific gravity (U) [Rel density] 1.025 1.002-1.030 [facility] Urine urobilinogen measureme ntOrdered By: HEALTH ASSESSMENT on 02-25-2025 Urobilinogen Ql (U) Normal mg/dl Normal [facility] White blood cell (WBC) count on 02-25-2025 WBC (Bld) [#/Vol] 8.7 10*3/uL Normal 4.4-11.0 [facility] Comment on above: Performed By: #### L 100.0200, L400.0100, L500.2900 #### [facility] [address] [place], [address] Basophil percentageOrdered B y: Keith Frederick on 12-18-2023 Bilirubin [Mass/Vol] 0.20 mg/dL 0.20-1.00 [facility] Comment on above: For patients on eltr ombopag therapy, use of Dimension [place] TBIL is not recommended. Chloride [Moles/Vol] 108 mmol/L 98-107 [facility] Cholesterol [Mass/Vol] 194 mg/dL <200 [facility] Comment on above: <200 mg/dL Desirable 200-240 mg/dL Borderline >240 mg/dL High Risk Glucose [Mass/Vol] 86 mg/dL 74-106 [facility] Potassium [Moles/Vol] 4.0 mmol/L 3.5-5.1 [facility] Protein [Mass/Vol] 7.1 g/dL 6.4-8.2 [facility] Sodium [Moles/Vol] 138 mmol/L 136-145 [facility] Triglyceride [Mass/Vol] 216 mg/dL <199 [facility] Comment on above: The drugs N-Acetylcy steine and Metamizole may falsely depress this assay.Serum Triglycerides Reference Interval Normal <150 mg/dL Borderline high 150 - 199 mg/dL High 200 - 499 mg/dL Very High > or = 500 mg/dL Laboratory - Chemistry and C hemistry - challengeOrdered By: Keith Frederick on 12-18-2023 Albumin/Globulin [Mass ratio] 1.0 {ratio} 0.9-2.4 [facility] ALP [Catalytic activity/Vol] 127 U/L 45-117 [facility] ALT [Catalytic activity/Vol] 28 U/L 13-56 [facility] Cholesterol in HDL [Mass/Vol] 47 mg/dL >40 [facility] Comment on above: The drugs N-Acetylcy steine and Metamizole may falsely depress this assay. Reference Range HDL <40 mg/dL Low HDL Cholesterol HDL >or= 60 mg/dL High HDL Cholesterol Cholesterol in LDL [Mass/Vol] 104 mg/dL 0-130 [facility] CO2 [Moles/Vol] 27.0 mmol/L 21.0-32.0 [facility] Globulin (S) [Mass/Vol] 3.6 g/dL 2.2-4.2 [facility] Urea nitrogen/Creatinine [Mass ratio] 20.8 mg/mg 10-20 [facility] No Panel InformationOrdered By: Keith Frederick on 12-18-2023 Estimated GFR (MDRD) Amer 114 mL/min >60 [facility] Comment on above: GFR Calc Estimated GFR (MDRD) Non-Af Amer 95 mL/min >60 [facility] Comment on above: Non- GFR Calc VLDL Cholesterol 43 mg/dL 5-40 [facility] Serum or plasma calcium wagner urement (mass/volume)Ordered By: Keith Frederick on 12-18-2023 Calcium [Mass/Vol] 9.2 mg/dL 8.5-10.1 [facility] Serum or plasma creatinine m easurement (mass/volume)Ordered By: Keith Frdeerick on 12-18-2023 Creatinine [Mass/Vol] 0.72 mg/dL 0.55-1.02 [facility] Comment on above: The validity of the calculated GFR & GFRAA in patients over 70 years has not been determined. Clinical correlation is essential. Serum or plasma urea nitroge n measurement (mass/volume)Ordered By: Keith Frederick on 12-18-2023 Urea nitrogen [Mass/Vol] 15 mg/dL 7-18 [facility] Thin prep Papanicolaou smear with manual screeningOrdered By: Keith Frederick on 12-18-2023 Thin prep Papanicolaou smear with manual screening 3.5 g/dL 3.2-5.0 [facility] Thin prep Papanicolaou smear with manual screening 18 U/L 15-37 [facility] Thin prep Papanicolaou smear with manual screening 3 5-15 [facility] Whole blood hemoglobin A1c/t otal hemoglobin ratio (mass fraction)Ordered By: Keith Frederick on 12-18-2023 HbA1c (Bld) [Mass fraction] 5.4 % 3.8-5.6 [facility] Comment on above: Normal < 5.7 % Predi abetic 5.7 - 6.4 % Diabetic >or= 6.5 % Please note range changes. Absolute lymphocyte countOrd ered By: Agabhinav Villa on 09-24-2023 Lymphocytes Auto (Unsp spec) [#/Vol] 1.36 10*3/uL 0.83-4.51 [facility] Automated lymphocyte count a s percentage of total leukocytesOrdered By: Agabhinav Villa on 09-24-2023 Lymphocytes/100 WBC Auto (Unsp spec) 14.2 % 19-41 [facility] Basophil percentageOrdered B y: Agabhinav Villa on 09-24-2023 Basophils/100 WBC (Bld) 0.4 % 0-1 [facility] Bilirubin [Mass/Vol] 0.50 mg/dL 0.20-1.00 [facility] Comment on above: For patients on eltr ombopag therapy, use of Dimension [place] TBIL is not recommended. Eosinophils/100 WBC (Bld) 1.6 % 0-5 [facility] Hemoglobin (Bld) [Mass/Vol] 12.5 g/dL 12.0-15.0 [facility] Monocytes/100 WBC (Bld) 6.4 % 0-10 [facility] Neutrophils (Bld) [#/Vol] 7.4 10*3/uL 2.0-7.7 [facility] Neutrophils/100 WBC (Bld) 77.0 % 47-70 [facility] Protein [Mass/Vol] 7.4 g/dL 6.4-8.2 [facility] WBC (Bld) [#/Vol] 9.6 10*3/uL 4.4-11.0 [facility] Determination of erythrocyte mean corpuscular volume (MCV)Ordered By: Ag Villa on 09-24-2023 MCV (RBC) [Entitic vol] 92.8 fL 81-99 [facility] Direct bilirubinOrdered By: Agabhinav Villa on 09-24-2023 Bilirubin.direct [Mass/Vol] 0.22 mg/dL 0.00-0.30 [facility] Erythrocyte distribution wid th ratioOrdered By: Agabhinav Villa on 09-24-2023 Erythrocyte distribution width (RBC) [Ratio] 12.2 % 11.6-14.6 [facility] Erythrocyte distribution wid th standard deviationOrdered By: Agabhinav Villa on 09-24-2023 Erythrocyte distribution width (RBC) [Entitic vol] 41.6 fL 35.1-43.9 [facility] Hematocrit Auto (Bld) [Volum e fraction]Ordered By: Agabhinav Villa on 09-24-2023 Hematocrit (Bld) [Volume fraction] 38.4 % 37-47 [facility] Immature granulocytes/100 WB C Auto (Bld)Ordered By: Ag Villa on 09-24-2023 Immature granulocytes/100 WBC (Bld) 0.400 % 0.0-0.9 [facility] Comment on above: IG% - Immature Granu locytes (promyelocytes, myelocytes and metamyelocytes) > 1% indicates that a LEFT SHIFT is Present. Laboratory - Chemistry and C hemistry - challengeOrdered By: Ag Villa on 09-24-2023 ALP [Catalytic activity/Vol] 328 U/L 45-117 [facility] ALT [Catalytic activity/Vol] 161 U/L 13-56 [facility] Globulin (S) [Mass/Vol] 3.6 g/dL 2.2-4.2 [facility] Lipase [Catalytic activity/Vol] 56 U/L 13-75 [facility] Comment on above: Please note:LIPASE r evised reference range effective 22. New Lipase methodology. Expected to produce lower values than the previous assay method. NEW Reference Range: 13 - 75 U/L Laboratory - Hematology and Cell countsOrdered By: Ag Villa on 09-24-2023 MCH (RBC) [Entitic mass] 30.2 pg 27.0-32.0 [facility] MCHC (RBC) [Mass/Vol] 32.6 g/dL 32-36 [facility] Nucleated RBC/100 WBC (Bld) [Ratio] 0 % 0-5 [facility] Platelets (Bld) [#/Vol] 356 10*3/uL 150-450 [facility] No Panel InformationOrdered By: Agabhinav Villa on 09-24-2023 Troponin I High Sensitivity 3 pg/mL 3.0-54.0 [facility] Comment on above: Please Note: New Kelly t Units and Gender Specific Reference Ranges. For more information see Policy Stat Procedure [place] High Sensitivity Troponin (TNIH) and attachments. Platelet mean volume Liam-Ec ker (Bld) [Entitic vol]Ordered By: Ag Villa on 09-24-2023 Platelet mean volume (Bld) [Entitic vol] 9.1 fL 6.2-12.0 [facility] RBC Auto (Bld) [#/Vol]Ordere d By: Ag Villa on 09-24-2023 RBC (Bld) [#/Vol] 4.14 10*6/uL 4.2-5.4 [facility] Serum or plasma choriogonado tropin detectionOrdered By: Ag Villa on 09-24-2023 HCG ( test) Ql Negative [facility] Thin prep Papanicolaou smear with manual screeningOrdered By: Ag Villa on 09-24-2023 Thin prep Papanicolaou smear with manual screening 3.8 g/dL 3.2-5.0 [facility] Thin prep Papanicolaou smear with manual screening 287 U/L 15-37 [facility] Basophil percentageOrdered B y: Dr. Jackson on 10-26-2022 Glucose [Mass/Vol] 89 mg/dL 74-106 [facility] Whole blood hemoglobin A1c/t otal hemoglobin ratio (mass fraction)Ordered By: Dr. Jackson on 10-26-2022 HbA1c (Bld) [Mass fraction] 5.0 % 3.8-5.6 [facility] Comment on above: Normal < 5.7 % Predi abetic 5.7 - 6.4 % Diabetic >or= 6.5 % Please note range changes. Basophil percentageOrdered B y: Dr. Jackson on 07-27-2022 WBC (Bld) [#/Vol] 8.5 10*3/uL 4.4-11.0 [facility] Blood erythrocytes count (nu mber/volume)Ordered By: Dr. Jackson on 07-27-2022 RBC (Bld) [#/Vol] 3.06 10*6/uL 4.2-5.4 [facility] Blood hemoglobin measurement (mass/volume)Ordered By: Dr. Jackson on 07-27-2022 Hemoglobin (Bld) [Mass/Vol] 9.9 g/dL 12.0-15.0 [facility] Blood platelet mean volumeOr dered By: Dr. Jackson on 07-27-2022 Platelet mean volume (Bld) [Entitic vol] 9.9 fL 6.2-12.0 [facility] Determination of erythrocyte mean corpuscular volume (MCV)Ordered By: Dr. Jackson on 07-27-2022 MCV (RBC) [Entitic vol] 98.0 fL 81-99 [facility] Glucose Glucometer (BldC) [M ass/Vol]Ordered By: Dr. Jackson on 07-27-2022 Glucose [Mass/Vol] 77 mg/dL 74-106 [facility] Comment on above: MANAGEMENT OF PATIEN T CARE PER NURSING PROTOCOL Hematocrit Auto (Bld) [Volum e fraction]Ordered By: Dr. Jackson on 07-27-2022 Hematocrit (Bld) [Volume fraction] 30.0 % 37-47 [facility] - Hematology and Cell countsOrdered By: Dr. Jackson on 07-27-2022 Erythrocyte distribution width (RBC) [Entitic vol] 50.2 fL 35.1-43.9 [facility] Erythrocyte distribution width (RBC) [Ratio] 14.2 % 11.6-14.6 [facility] MCH (RBC) [Entitic mass] 32.4 pg 27.0-32.0 [facility] MCHC Auto (RBC) [Mass/Vol]Or dered By: Dr. Jackson on 07-27-2022 MCHC (RBC) [Mass/Vol] 33.0 g/dL 32-36 [facility] Platelets bldOrdered By: Dr. Jackson on 07-27-2022 Platelets (Bld) [#/Vol] 172 10*3/uL 150-450 [facility] Absolute lymphocyte countOrd ered By: Dr. Jackson on 07-26-2022 Lymphocytes Auto (Unsp spec) [#/Vol] 2.37 10*3/uL 0.83-4.51 [facility] Basophil percentageOrdered B y: Dr. Jackson on 07-26-2022 Basophils/100 WBC (Bld) 0.2 % 0-1 [facility] Eosinophils/100 WBC (Bld) 2.0 % 0-5 [facility] Neutrophils (Bld) [#/Vol] 5.3 10*3/uL 2.0-7.7 [facility] Neutrophils/100 WBC (Bld) 62.9 % 47-70 [facility] Blood lymphocytes/100 leukoc ytesOrdered By: Dr. Jackson on 07-26-2022 Lymphocytes/100 WBC (Bld) 28.3 % 19-41 [facility] Blood monocytes/100 leukocyt esOrdered By: Dr. Jackson on 07-26-2022 Monocytes/100 WBC (Bld) 5.6 % 0-10 [facility] - Hematology and Cell countsOrdered By: Dr. Jackson on 07-26-2022 Immature granulocytes/100 WBC (Bld) 1.000 % 0.0-0.9 [facility] Comment on above: IG% - Immature Granu locytes (promyelocytes, myelocytes and metamyelocytes) > 1% indicates that a LEFT SHIFT is Present. Nucleated RBC/100 WBC (Bld) [Ratio] 0 % 0-5 [facility] URINE OB DIP B/Oon 2 Glucose Ql (U) Negative Neg mg/dL [facility] Protein.monoclonal (U) [Mass/Vol] 30 mg/dL Neg mg/dL [facility] Basophil percentageOrdered B y: Dr. Jackson on 07-15-2022 Bilirubin [Mass/Vol] 0.30 mg/dL 0.20-1.00 [facility] Comment on above: For patients on eltr ombopag therapy, use of Dimension [place] TBIL is not recommended. Protein [Mass/Vol] 6.3 g/dL 6.4-8.2 [facility] Direct bilirubinOrdered By: Dr. Jackson on 07-15-2022 Bilirubin.direct [Mass/Vol] 0.11 mg/dL 0.00-0.30 [facility] - Chemistry and C hemistry - challengeOrdered By: Dr. Jackson on 07-15-2022 ALP [Catalytic activity/Vol] 257 U/L 45-117 [facility] ALT [Catalytic activity/Vol] 40 U/L 13-56 [facility] Globulin (S) [Mass/Vol] 4.1 g/dL 2.2-4.2 [facility] No Panel InformationOrdered By: Dr. Jackson on 07-15-2022 Miscellaneous Test See comment [facility] Comment on above: TEST RESULT LIMITSBi le Acids 6.1 umol/L 0.0-10.0 ___ TESTING PERFORMED AT [facility]. ORIGINAL REPORT ON FILE IN LAB CONTAINS ADDITIONAL TEST SITE INFORMATION. Serum or plasma albumin wagner urement (mass/volume)Ordered By: Dr. Jackson on 07-15-2022 Albumin [Mass/Vol] 2.2 g/dL 3.2-5.0 [facility] Thin prep Papanicolaou smear with manual screeningOrdered By: Dr. Jackson on 07-15-2022 Thin prep Papanicolaou smear with manual screening 25 U/L 15-37 [facility] URINE OB DIP B/Oon 2 Glucose Ql (U) Negative Neg mg/dL [facility] Protein.monoclonal (U) [Mass/Vol] trace Neg mg/dL [facility] OBSTETRIC ULTRASOUND WHIon 1 09-05-2021 [facility] URINE OB DIP B/Oon 2 Glucose Ql (U) Negative Neg mg/dL [facility] Protein.monoclonal (U) [Mass/Vol] Negative Neg mg/dL [facility] - Microbiology an d Antimicrobial susceptibilityon 07-02-2022 SARS-CoV-2 (COVID-19) RNA DEBO+probe Ql (Unsp spec) Not detected [facility] Work Phone: URINE OB DIP B/Oon 2 Glucose Ql (U) Negative Neg mg/dL [facility] Protein.monoclonal (U) [Mass/Vol] Negative Neg mg/dL [facility] Absolute lymphocyte counton 06-17-2022 Lymphocytes Auto (Unsp spec) [#/Vol] 2.42 10*3/uL 0.83-4.51 [facility] Work Phone: Basophil percentageon 2021 Basophils/100 WBC (Bld) 0.4 % 0-1 [facility] Work Phone: Eosinophils/100 WBC (Bld) 1.5 % 0-5 [facility] Work Phone: Neutrophils (Bld) [#/Vol] 6.8 10*3/uL 2.0-7.7 [facility] Work Phone: Neutrophils/100 WBC (Bld) 65.2 % 47-70 [facility] Work Phone: WBC (Bld) [#/Vol] 10.4 10*3/uL 4.4-11.0 [facility] Work Phone: Blood erythrocytes count (nu mber/volume)on 06-17-2022 RBC (Bld) [#/Vol] 3.51 10*6/uL 4.2-5.4 [facility] Work Phone: Blood hemoglobin measurement (mass/volume)on 06-17-2022 Hemoglobin (Bld) [Mass/Vol] 11.5 g/dL 12.0-15.0 [facility] Work Phone: Blood lymphocytes/100 leukoc yteson 06-17-2022 Lymphocytes/100 WBC (Bld) 23.3 % 19-41 [facility] Work Phone: Blood monocytes/100 leukocyt eson 06-17-2022 Monocytes/100 WBC (Bld) 7.1 % 0-10 [facility] Work Phone: Blood platelet mean volumeon 06-17-2022 Platelet mean volume (Bld) [Entitic vol] 9.8 fL 6.2-12.0 [facility] Work Phone: Determination of erythrocyte mean corpuscular volume (MCV)on 06-17-2022 MCV (RBC) [Entitic vol] 98.0 fL 81-99 [facility] Work Phone: Hematocrit Auto (Bld) [Volum e fraction]on 06-17-2022 Hematocrit (Bld) [Volume fraction] 34.4 % 37-47 [facility] Work Phone: Laboratory - Hematology and Cell countson 06-17-2022 Erythrocyte distribution width (RBC) [Entitic vol] 49.9 fL 35.1-43.9 [facility] Work Phone: Erythrocyte distribution width (RBC) [Ratio] 14.1 % 11.6-14.6 [facility] Work Phone: Immature granulocytes/100 WBC (Bld) 2.500 % 0.0-0.9 [facility] Work Phone: Comment on above: IG% - Immature Granu locytes (promyelocytes, myelocytes and metamyelocytes) > 1% indicates that a LEFT SHIFT is Present. MCH (RBC) [Entitic mass] 32.8 pg 27.0-32.0 [facility] Work Phone: Nucleated RBC/100 WBC (Bld) [Ratio] 0 % 0-5 [facility] Work Phone: MCHC Auto (RBC) [Mass/Vol]on 06-17-2022 MCHC (RBC) [Mass/Vol] 33.4 g/dL 32-36 [facility] Work Phone: Platelets bldon 06-17-2022 Platelets (Bld) [#/Vol] 282 10*3/uL 150-450 [facility] Work Phone: OBSTETRIC ULTRASOUND WHIon 1 [facility] URINE OB DIP B/Oon 2 Glucose Ql (U) Negative Neg mg/dL [facility] Protein.monoclonal (U) [Mass/Vol] Negative Neg mg/dL [facility] URINE OB DIP B/Oon 2 Glucose Ql (U) Negative Neg mg/dL [facility] Protein.monoclonal (U) [Mass/Vol] Negative Neg mg/dL [facility] URINE OB DIP B/Oon 2 Glucose Ql (U) Negative Neg mg/dL [facility] Protein.monoclonal (U) [Mass/Vol] Negative Neg mg/dL [facility] Absolute lymphocyte counton 05-07-2022 Lymphocytes Auto (Unsp spec) [#/Vol] 1.56 10*3/uL 0.83-4.51 [facility] Work Phone: Basophil percentageon 2021 Basophils/100 WBC (Bld) 0.5 % 0-1 [facility] Work Phone: Eosinophils/100 WBC (Bld) 2.9 % 0-5 [facility] Work Phone: Neutrophils (Bld) [#/Vol] 5.4 10*3/uL 2.0-7.7 [facility] Work Phone: Neutrophils/100 WBC (Bld) 68.3 % 47-70 [facility] Work Phone: WBC (Bld) [#/Vol] 7.9 10*3/uL 4.4-11.0 [facility] Work Phone: [phone] Blood erythrocytes count (nu mber/volume)on 05-07-2022 RBC (Bld) [#/Vol] 3.20 10*6/uL 4.2-5.4 [facility] Work Phone: Blood hemoglobin measurement (mass/volume)on 05-07-2022 Hemoglobin (Bld) [Mass/Vol] 10.3 g/dL 12.0-15.0 [facility] Work Phone: Blood lymphocytes/100 leukoc yteson 05-07-2022 Lymphocytes/100 WBC (Bld) 19.8 % 19-41 [facility] Work Phone: Blood monocytes/100 leukocyt eson 05-07-2022 Monocytes/100 WBC (Bld) 6.5 % 0-10 [facility] Work Phone: Blood platelet mean volumeon 05-07-2022 Platelet mean volume (Bld) [Entitic vol] 9.6 fL 6.2-12.0 [facility] Work Phone: Determination of erythrocyte mean corpuscular volume (MCV)on 05-07-2022 MCV (RBC) [Entitic vol] 100.0 fL 81-99 [facility] Work Phone: Gestational diabetes screen 1-hour screen with 50g oral glucose loadon 05-07-2022 Glucose 1 Hr post 50 g glucose PO [Mass/Vol] 193 mg/dL 70-140 [facility] Work Phone: Hematocrit Auto (Bld) [Volum e fraction]on 05-07-2022 Hematocrit (Bld) [Volume fraction] 32.0 % 37-47 [facility] Work Phone: Laboratory - Hematology and Cell countson 05-07-2022 Erythrocyte distribution width (RBC) [Entitic vol] 48.6 fL 35.1-43.9 [facility] Work Phone: Erythrocyte distribution width (RBC) [Ratio] 13.4 % 11.6-14.6 [facility] Work Phone: Immature granulocytes/100 WBC (Bld) 2.000 % 0.0-0.9 [facility] Work Phone: Comment on above: IG% - Immature Granu locytes (promyelocytes, myelocytes and metamyelocytes) > 1% indicates that a LEFT SHIFT is Present. MCH (RBC) [Entitic mass] 32.2 pg 27.0-32.0 [facility] Work Phone: Nucleated RBC/100 WBC (Bld) [Ratio] 0 % 0-5 [facility] Work Phone: MCHC Auto (RBC) [Mass/Vol]on 05-07-2022 MCHC (RBC) [Mass/Vol] 32.2 g/dL 32-36 [facility] Work Phone: Platelets bldon 05-07-2022 Platelets (Bld) [#/Vol] 295 10*3/uL 150-450 [facility] Work Phone: Serum Treponema species anti body detectionon 05-07-2022 Treponema sp Ab Ql (S) Non-Reactive [facility] Work Phone: Laboratory - Microbiology an d Antimicrobial susceptibilityon 05-04-2022 SARS-CoV-2 (COVID-19) RNA DEBO+probe Ql (Unsp spec) Not detected [facility] Work Phone: No Panel Informationon 05-04 POC Nasal Swab Influenza A,B Not detected [facility] Work Phone: POC Nasal Swab RSV Not detected [facility] Work Phone: URINE OB DIP B/Oon 2 Glucose Ql (U) Negative Neg mg/dL [facility] Protein.monoclonal (U) [Mass/Vol] Negative Neg mg/dL [facility] OBSTETRIC ULTRASOUND WHIon 0 03-11-2022 [facility] Assess gestational ageon Gestational age 16.9 WEEKS . [facility] Work Phone: Gestational age CHHAYA . [facility] Work Phone: Comment on above: 07/31/2022 Basophil percentage[place] [address] m[IU]/mL . [facility] Work Phone: Determination of risk of ron ral tube defect in fetuson 02-19-2022 Neural tube defect risk Qn (fetus) 76784 % . [facility] Work Phone: trisomy 21 risk determ ination based on maternal ageon 02-19-2022 Trisomy 21 risk Based on maternal age Qn (fetus) 85 . [facility] Work Phone: Human chorionic gonadotropin (hCG) multiple of median measurementon 02-19-2022 HCG [MoM] 1.78 . [facility] Work Phone: Insulin dependent diabetes m ellitus detectionon 02-19-2022 Insulin dependent diabetes mellitus Ql Comment . [facility] Work Phone: Comment on above: Not provided. Interpretation of first and second trimester integrated maternal screen (nominal resuon 02-19-2022 First and Second trimester integrated maternal screen [Interp] Positive . [facility] Work Phone: Interpretation of serum or p lasma second trimester quad maternal screen (narrative reon 02-19-2022 Second trimester quad maternal screen Dieudonne [Interp] Comment . [facility] Work Phone: Comment on above: Interpretation: Scre en Positive for Down SyndromeThis patient is at increased risk to have a baby withDown Syndrome. The Down Syndrome risk was calculated usingthe gestational age provided, maternal age, AFP, hCG, uE3and AMELIE values. Approximately 75-80% of DownSyndrome can be detected by this test. This result isscreen negative for open spina bifida. This test canidentify up to 80% of open neural tube defects.Closed neural tube defects and some open defects may not bedetected by this test. This test can identify [id number]% of Trisomy 18. Recommendations:1. Targeted ultrasound to confirm gestational ageand rule out anomalies.2. Do not repeat test. Repeating the test can result infalse negatives.3. Genetic counseling and amniocentesis are appropriateoptions.Recalculations are not recommended when gestational datingby LMP and ultrasound are within 10 days. Maternal age for estimation of risk of Down syndromeon 02-19-2022 Age [Time] 40.1 yr . [facility] Work Phone: No Panel Informationon 02-19 Alpha Fetoprotein 23.5 ng/mL . [facility] Work Phone: plurality of No . [facility] Work Phone: Mother's race Comment . [facility] Work Phone: Comment on above: Not provided. Quantitative risk assessment for trisomy 18 in fetuson 02-19-2022 Trisomy 18 risk Qn (fetus) Not increased . [facility] Work Phone: Quantitative risk assessment for trisomy 18 in fetus based on maternal ageon 02-19-2022 Trisomy 18 risk Based on maternal age Qn (fetus) 1:332 . [facility] Work Phone: Serum or plasma pfamm-6-jcub protein measurement (longqwtq-bz-rdbyfx)on 02-19-2022 AFP [MoM] 0.63 . [facility] Work Phone: Serum or plasma inhibin A me asurement (mass/volume)on 02-19-2022 Inhibin A [Mass/Vol] 236.95 pg/mL . [facility] Work Phone: Serum or plasma inhibin A me asurement (akkuimlh-ar-evszpe)on 02-19-2022 Inhibin A [MoM] 1.64 . [facility] Work Phone: Serum or plasma unconjugated estriol (E3) measurement (adjusted zyfgfcal-it-jezpuf)on 02-19-2022 E3.unconjugated adjusted [MoM] 0.79 . [facility] Work Phone: Serum or plasma unconjugated estriol (E3) measurement (mass/volume)on 02-19-2022 E3.unconjugated [Mass/Vol] 0.86 ng/mL . [facility] Work Phone: Trisomy 21 risk determinatio n in fetuson 02-19-2022 Trisomy 21 risk Qn (fetus) 17 . [facility] Work Phone: URINE OB DIP B/Oon 2 Glucose Ql (U) Negative Neg mg/dL [facility] Protein.monoclonal (U) [Mass/Vol] Negative Neg mg/dL [facility] URINE OB DIP B/Oon 2 Glucose Ql (U) Negative Neg mg/dL [facility] Protein.monoclonal (U) [Mass/Vol] trace Neg mg/dL [facility] Laboratory - Microbiology an d Antimicrobial susceptibilityon 12-26-2021 SARS-CoV-2 (COVID-19) RNA DEBO+probe Ql (Unsp spec) Not detected [facility] Work Phone: No Panel Informationon 12-26 Influenza Types A,B Rapid ([facility]) Not detected [facility] Work Phone: Absolute lymphocyte counton 12-23-2021 Lymphocytes Auto (Unsp spec) [#/Vol] 2.10 10*3/uL 0.83-4.51 [facility] Work Phone: Automated blood hematocrit ( percentage)on 12-23-2021 Hematocrit (Bld) [Volume fraction] 35.9 % 37-47 [facility] Basophil percentageon 2021 Basophils/100 WBC (Bld) 0.6 % 0-1 [facility] Eosinophils/100 WBC (Bld) 1.8 % 0-5 [facility] Neutrophils (Bld) [#/Vol] 6.1 10*3/uL 2.0-7.7 [facility] Work Phone: Neutrophils/100 WBC (Bld) 68.3 % 47-70 [facility] WBC (Bld) [#/Vol] 8.9 10*3/uL 4.4-11.0 [facility] Blood erythrocytes count (nu mber/volume)on 12-23-2021 RBC (Bld) [#/Vol] 3.93 10*6/uL 4.2-5.4 [facility] Blood hemoglobin measurement (mass/volume)on 12-23-2021 Hemoglobin (Bld) [Mass/Vol] 11.7 g/dL 12.0-15.0 [facility] Blood lymphocytes/100 leukoc yteson 12-23-2021 Lymphocytes/100 WBC (Bld) 23.5 % 19-41 [facility] Blood monocytes/100 leukocyt eson 12-23-2021 Monocytes/100 WBC (Bld) 5.4 % 0-10 [facility] Blood platelet mean volumeon 12-23-2021 Platelet mean volume (Bld) [Entitic vol] 8.9 fL 6.2-12.0 [facility] CBCDIF (EXTERNAL)on 12-24-19 22 BASO ABS [facility] EOS ABS [facility] Lymphocytes (Bld) [#/Vol] 2.10 10*3/uL 1.2 - 4 K/uL [facility] MONO ABS [facility] NEUT ABS 6.1 K/uL 1.9 - 8 K/uL [facility] RDW [facility] Determination of erythrocyte mean corpuscular volume (MCV)on 12-23-2021 MCV (RBC) [Entitic vol] 91.3 fL 81-99 [facility] HIV 1 and HIV-2 antibody ass ay with HIV-1 p24 antigen detectionon 12-23-2021 HIV 1+2 Ab+HIV1 p24 Ag IA Ql Non-Reactive Nonreactive [facility] Work Phone: Laboratory - Hematology and Cell countson 12-23-2021 Erythrocyte distribution width (RBC) [Entitic vol] 41.9 fL 35.1-43.9 [facility] Erythrocyte distribution width (RBC) [Ratio] 12.7 % 11.6-14.6 [facility] Immature granulocytes/100 WBC (Bld) 0.400 % 0.0-0.9 [facility] Work Phone: Comment on above: IG% - Immature Granu locytes (promyelocytes, myelocytes and metamyelocytes) > 1% indicates that a LEFT SHIFT is Present. MCH (RBC) [Entitic mass] 29.8 pg 27.0-32.0 [facility] Nucleated RBC/100 WBC (Bld) [Ratio] 0 % 0-5 [facility] MCHC [Mass/volume] by Automa bro counton 12-23-2021 MCHC (RBC) [Mass/Vol] 32.6 g/dL 32-36 [facility] No Panel Informationon 12-23 Hepatitis B Surface Antigen Non-Reactive Nonreactive [facility] Work Phone: Hepatitis C Antibody Non-Reactive Nonreactive [facility] Work Phone: Comment on above: Non Reactive: < 0.8 Equivocal: >/= 0.8 to < 1.0 Reactive: >/= 1.0The CDC recommends that a reactive/equivocal HCV antibody result be followed up by the HCV Nucleic Acid Amplificationtest (131425) Rubella IgG Antibody Reactive Nonreactive [facility] Work Phone: Comment on above: Antibody Results Int erpretation of Immune Status Non Reactive Presumed Non-Immune Equivocal Equivocal Reactive Presumed Immune Platelets bldon 12-23-2021 Platelets (Bld) [#/Vol] 350 10*3/uL 150-450 [facility] Serum Treponema species anti body detectionon 12-23-2021 Treponema sp Ab Ql (S) Non-Reactive [facility] Work Phone: Whole blood hemoglobin A1c/t otal hemoglobin ratio (mass fraction)on 12-23-2021 HbA1c (Bld) [Mass fraction] 5.4 % 3.8-5.6 [facility] Comment on above: Normal < 5.7 % Predi abetic 5.7 - 6.4 % Diabetic >or= 6.5 % Please note range changes. Laboratory - Microbiology an d Antimicrobial susceptibilityon 09-07-2021 SARS-CoV-2 (COVID-19) RNA DEBO+probe Ql (Unsp spec) Detected [facility] Work Phone: Vital Signs Date Time Vital Sign Value Performing Clinician Faci lity 02-26-2025 09:04-0400 Body height 151.1 cm Keith Frederick MD Work Phone: [facility] 02-26-2025 09:04-0400 Body mass index (BMI) [Ratio] 32.73 kg/m2 Keith Frederick MD Work Phone: [facility] 02-26-2025 09:04-0400 Body weight 74.75 kg Keith Frederick MD Work Phone: [facility] 02-26-2025 09:04-0400 Diastolic blood pressure 76 mm[Hg] Keith Frederick MD Work Phone: [facility] 02-26-2025 09:04-0400 Heart rate 70 /min Keith Frederick MD Work Phone: [facility] 02-26-2025 09:04-0400 Respiratory rate 16 /min Keith Frederick MD Work Phone: [facility] 02-26-2025 09:04-0400 Systolic blood pressure 116 mm[Hg] Keith Frederick MD Work Phone: [facility] 11-10-2023 13:26-0400 Diastolic blood pressure 80 mm[Hg] Keith Frederick MD Work Phone: [facility] 11-10-2023 13:26-0400 Systolic blood pressure 128 mm[Hg] Keith Frederick MD Work Phone: [facility] 11-10-2023 13:05-0400 Body height 152.4 cm Keith Frederick MD Work Phone: [facility] 11-10-2023 13:05-0400 Body weight 73.03 kg Keith Frederick MD Work Phone: [facility] 11-10-2023 13:05-0400 Heart rate 60 /min Keith Frederick MD Work Phone: [facility] 11-10-2023 13:05-0400 Respiratory rate 16 /min Keith Frederick MD Work Phone: [facility] 11-02-2023 00:00-0500 Body temperature 98 [degF] Dr. Manuel Noland Work Phone: [facility] 11-02-2023 00:00-0500 Diastolic blood pressure 78 mm[Hg] Dr. Manuel Noland Work Phone: [facility] 11-02-2023 00:00-0500 Heart rate 71 /min Dr. Manuel Noland Work Phone: [facility] 11-02-2023 00:00-0500 Respiratory rate 18 /min Dr. Manuel Noland Work Phone: [facility] 11-02-2023 00:00-0500 SaO2% (BldA) [Mass fraction] 99 % Dr. Manuel Noland Work Phone: [facility] 11-02-2023 00:00-0500 Systolic blood pressure 125 mm[Hg] Dr. Manuel Noland Work Phone: [facility] 11-01-2023 22:21-0500 Body height 152.[address] Manuel Noland Work Phone: [facility] 11-01-2023 22:21-0500 Body mass index (BMI) [Ratio] 29.2 kg/m2 Dr. Manuel Noland Work Phone: [facility] 11-01-2023 22:21-0500 Body weight 68.[address] Manuel Noland Work Phone: [facility] 09-28-2023 15:47-0500 Body height 152.4 cm Long Jackson MD Work Phone: [facility] 09-28-2023 15:47-0500 Body weight 70.76 kg Long Jackson MD Work Phone: [facility] 09-28-2023 15:47-0500 Diastolic blood pressure 82 mm[Hg] Long Jackson MD Work Phone: [facility] 09-28-2023 15:47-0500 Systolic blood pressure 120 mm[Hg] Long Jackson MD Work Phone: [facility] 09-24-2023 17:08-0500 Body temperature 98.2 [degF] Dr. Manuel Noland Work Phone: [facility] 09-24-2023 17:08-0500 Diastolic blood pressure 78 mm[Hg] Dr. Manuel Noland Work Phone: [facility] 09-24-2023 17:08-0500 Heart rate 63 /min Dr. Manuel Noland Work Phone: [facility] 09-24-2023 17:08-0500 Respiratory rate 18 /min Dr. Manuel Noland Work Phone: [facility] 09-24-2023 17:08-0500 SaO2% (BldA) [Mass fraction] 98 % Dr. Manuel Noland Work Phone: [facility] 09-24-2023 17:08-0500 Systolic blood pressure 124 mm[Hg] Dr. Manuel Noland Work Phone: [facility] 09-24-2023 15:09-0500 Body height 152.[address] Manuel Noland Work Phone: [facility] 09-24-2023 15:09-0500 Body mass index (BMI) [Ratio] 31.1 kg/m2 Dr. Manuel Noland Work Phone: [facility] 09-24-2023 15:09-0500 Body weight 72.[address] Manuel Noland Work Phone: [facility] 09-24-2023 11:45-0500 Inhaled oxygen flow rate 2 L/min Dr. Manuel Noland Work Phone: [facility] 09-24-2023 10:00-0500 Body temperature 98.4 [degF] [facility] 09-24-2023 10:00-0500 Diastolic blood pressure 84 mm[Hg] [facility] 09-24-2023 10:00-0500 Heart rate 76 /min [facility] 09-24-2023 10:00-0500 Respiratory rate 16 /min [facility] 09-24-2023 10:00-0500 SaO2% (BldA) [Mass fraction] 97 % [facility] 09-24-2023 10:00-0500 Systolic blood pressure 130 mm[Hg] [facility] 09-24-2023 04:04-0500 Body height 152.4 cm [facility] 09-24-2023 04:04-0500 Body mass index (BMI) [Ratio] 31.1 kg/m2 [facility] 09-24-2023 04:04-0500 Body weight 72.4 kg [facility] 09-06-2022 09:00-0500 Body weight 72.12 kg Long Jackson MD Work Phone: [facility] 09-06-2022 09:00-0500 Diastolic blood pressure 70 mm[Hg] Long Jackson MD Work Phone: [facility] 09-06-2022 09:00-0500 Systolic blood pressure 98 mm[Hg] Long Jackson MD Work Phone: [facility] 07-27-2022 16:41-0500 Body temperature 98.9 [degF] [facility] 07-27-2022 16:41-0500 Diastolic blood pressure 63 mm[Hg] [facility] 07-27-2022 16:41-0500 Heart rate 84 /min [facility] 07-27-2022 16:41-0500 Respiratory rate 16 /min [facility] 07-27-2022 16:41-0500 SaO2% (BldA) [Mass fraction] 96 % [facility] 07-27-2022 16:41-0500 Systolic blood pressure 118 mm[Hg] [facility] 07-26-2022 09:53-0500 Body height 152.4 cm [facility] 07-26-2022 09:53-0500 Body mass index (BMI) [Ratio] 35.2 kg/m2 [facility] 07-26-2022 09:53-0500 Body weight 81.7 kg [facility] 07-22-2022 10:54-0500 Body weight 80.88 kg Long Jackson MD Work Phone: [facility] 07-22-2022 10:54-0500 Diastolic blood pressure 62 mm[Hg] Long Jackson MD Work Phone: [facility] 07-22-2022 10:54-0500 Heart rate 81 /min Long Jackson MD Work Phone: [facility] 07-22-2022 10:54-0500 SaO2% (BldA) [Mass fraction] 100 % Long Jackson MD Work Phone: [facility] 07-22-2022 10:54-0500 Systolic blood pressure 98 mm[Hg] Long Jackson MD Work Phone: [facility] 07-19-2022 09:54-0500 Diastolic blood pressure 70 mm[Hg] PA Usha Roe PA Work Phone: [facility] 07-19-2022 09:54-0500 Heart rate 68 /min PA Usha Roe PA Work Phone: [facility] 07-19-2022 09:54-0500 Systolic blood pressure 124 mm[Hg] PA Usha Roe PA Work Phone: [facility] 07-19-2022 09:49-0500 Body height 152.4 cm PA Usha Roe PA Work Phone: [facility] Work Phone: 07-19-2022 09:49-0500 Body mass index (BMI) [Ratio] 34.9 kg/m2 PA Usha Roe PA Work Phone: [facility] 07-19-2022 09:49-0500 Body weight 81 kg PA Usha Roe PA Work Phone: [facility] 07-15-2022 09:04-0500 Body height 152.4 cm Long Jackson MD Work Phone: [facility] 07-15-2022 09:04-0500 Body weight 80.74 kg Long Jackson MD Work Phone: [facility] 07-15-2022 09:04-0500 Diastolic blood pressure 62 mm[Hg] Long Jackson MD Work Phone: [facility] 07-15-2022 09:04-0500 Systolic blood pressure 118 mm[Hg] Long Jackson MD Work Phone: [facility] 07-12-2022 11:27-0500 Diastolic blood pressure 77 mm[Hg] PA Usha Roe PA Work Phone: [facility] 07-12-2022 11:27-0500 Heart rate 77 /min PA Usha Roe PA Work Phone: [facility] 07-12-2022 11:27-0500 Systolic blood pressure 123 mm[Hg] PA Usha Roe PA Work Phone: [facility] 07-12-2022 11:09-0500 Body height 152.4 cm PA Usha Roe PA Work Phone: [facility] Work Phone: 07-12-2022 11:09-0500 Body mass index (BMI) [Ratio] 34.3 kg/m2 PA Usha Roe PA Work Phone: [facility] 07-12-2022 11:09-0500 Body weight 79.83 kg PA Usha Roe PA Work Phone: [facility] 07-06-2022 08:17-0500 Body weight 78.93 kg Tahmina Blackwood MD Work Phone: [facility] 07-06-2022 08:17-0500 Diastolic blood pressure 72 mm[Hg] Tahmina Blackwood MD Work Phone: [facility] 07-06-2022 08:17-0500 Systolic blood pressure 114 mm[Hg] Tahmina Blackwood MD Work Phone: [facility] 07-02-2022 09:19-0400 Body temperature 98.5 [degF] PA Usha Roe PA Work Phone: [facility] Work Phone: 07-02-2022 09:19-0400 Diastolic blood pressure 78 mm[Hg] PA Usha Roe PA Work Phone: [facility] Work Phone: 07-02-2022 09:19-0400 Heart rate 91 /min PA Usha Roe PA Work Phone: [facility] Work Phone: 07-02-2022 09:19-0400 Respiratory rate 16 /min PA Usha Roe PA Work Phone: [facility] Work Phone: 07-02-2022 09:19-0400 SaO2% (BldA) [Mass fraction] 98 % PA Usha Roe PA Work Phone: [facility] Work Phone: 07-02-2022 09:19-0400 Systolic blood pressure 112 mm[Hg] PA Usha Roe PA Work Phone: [facility] Work Phone: 06-30-2022 13:13-0400 Diastolic blood pressure 69 mm[Hg] PA Usha Roe PA Work Phone: [facility] Work Phone: 06-30-2022 13:13-0400 Heart rate 90 /min PA Usha Roe PA Work Phone: [facility] Work Phone: 06-30-2022 13:13-0400 Systolic blood pressure 110 mm[Hg] PA Usha Roe PA Work Phone: [facility] Work Phone: 06-30-2022 13:08-0400 Body height 152.4 cm PA Usha Roe PA Work Phone: [facility] Work Phone: 06-30-2022 13:08-0400 Body mass index (BMI) [Ratio] 34.4 kg/m2 PA Usha Roe PA Work Phone: [facility] Work Phone: 06-30-2022 13:08-0400 Body weight 79.9 kg PA Usha Roe PA Work Phone: [facility] Work Phone: 06-23-2022 13:56-0400 Body weight 79.83 kg Angie Padilla APRN.CNM Work Phone: [facility] 06-23-2022 13:56-0400 Diastolic blood pressure 88 mm[Hg] Angie Plotts ENVIRONMENTAL INSPECTOR.CNM Work Phone: [facility] 06-23-2022 13:56-0400 Systolic blood pressure 128 mm[Hg] Angie Plotts ENVIRONMENTAL INSPECTOR.CNM Work Phone: [facility] 06-10-2022 13:26-0400 Body weight 78.93 kg Angie Padilla ENVIRONMENTAL INSPECTOR.CNM Work Phone: [facility] 06-10-2022 13:26-0400 Diastolic blood pressure 66 mm[Hg] Angie Plotts ENVIRONMENTAL INSPECTOR.CNM Work Phone: [facility] 06-10-2022 13:26-0400 Systolic blood pressure 102 mm[Hg] Angie Plotts ENVIRONMENTAL INSPECTOR.CNM Work Phone: [facility] 05-25-2022 13:19-0400 Body weight 78.83 kg Bere Mccauley MD Work Phone: [facility] 05-25-2022 13:19-0400 Diastolic blood pressure 74 mm[Hg] Bere Mccauley MD Work Phone: [facility] 05-25-2022 13:19-0400 Systolic blood pressure 110 mm[Hg] Bere Mccauley MD Work Phone: [facility] 05-12-2022 08:39-0400 Body weight 77.66 kg Bere Mccauley MD Work Phone: [facility] 05-12-2022 08:39-0400 Diastolic blood pressure 62 mm[Hg] Bere Mccauley MD Work Phone: [facility] 05-12-2022 08:39-0400 Systolic blood pressure 100 mm[Hg] Bere Mccauley MD Work Phone: [facility] 04-12-2022 08:35-0400 Body weight 77.11 kg Tahmina Blackwood MD Work Phone: [facility] 04-12-2022 08:35-0400 Diastolic blood pressure 62 mm[Hg] Tahmina Blackwood MD Work Phone: [facility] 04-12-2022 08:35-0400 Systolic blood pressure 108 mm[Hg] Tahmina Blackwood MD Work Phone: [facility] 03-11-2022 14:50-0400 Body weight 74.39 kg Angie Plotts ENVIRONMENTAL INSPECTOR.CNM Work Phone: [facility] 03-11-2022 14:50-0400 Diastolic blood pressure 60 mm[Hg] Angie Plotts ENVIRONMENTAL INSPECTOR.CNM Work Phone: [facility] 03-11-2022 14:50-0400 Systolic blood pressure 110 mm[Hg] Angie Plotts ENVIRONMENTAL INSPECTOR.CNM Work Phone: [facility] 02-19-2022 11:05-0400 Body weight 73.4832 kg KRISTEN PETERSON Work Phone: [facility] Work Phone: 02-17-2022 16:35-0400 Body weight 73.48 kg Angie Plotts ENVIRONMENTAL INSPECTOR.CNM Work Phone: [facility] 02-17-2022 16:35-0400 Diastolic blood pressure 74 mm[Hg] Angie Plotts ENVIRONMENTAL INSPECTOR.CNM Work Phone: [facility] 02-17-2022 16:35-0400 Systolic blood pressure 120 mm[Hg] Angie Plotts ENVIRONMENTAL INSPECTOR.CNM Work Phone: [facility] 01-18-2022 15:08-0400 Body weight 73.03 kg Hansel Farr MD Work Phone: [facility] 01-18-2022 15:08-0400 Diastolic blood pressure 74 mm[Hg] Hansel Farr MD Work Phone: [facility] 01-18-2022 15:08-0400 Systolic blood pressure 120 mm[Hg] Hansel Farr MD Work Phone: [facility] 12-26-2021 08:53-0400 Body temperature 99.1 [degF] KRISTEN PETERSON Work Phone: [facility] Work Phone: 12-26-2021 08:53-0400 Diastolic blood pressure 78 mm[Hg] PA Usha Roe PA Work Phone: [facility] Work Phone: 12-26-2021 08:53-0400 Heart rate 71 /min PA Usha Roe PA Work Phone: [facility] Work Phone: 12-26-2021 08:53-0400 Respiratory rate 14 /min PA Usha Roe PA Work Phone: [facility] Work Phone: 12-26-2021 08:53-0400 SaO2% (BldA) [Mass fraction] 97 % PA Usha Roe PA Work Phone: [facility] Work Phone: 12-26-2021 08:53-0400 Systolic blood pressure 124 mm[Hg] PA Usha Roe PA Work Phone: [facility] Work Phone: 12-26-2021 08:53-0400 Body temperature 99.1 [degF] PA Usha Roe PA Work Phone: [facility] Work Phone: 12-26-2021 08:53-0400 Diastolic blood pressure 78 mm[Hg] PA Usha Roe PA Work Phone: [facility] Work Phone: 12-26-2021 08:53-0400 Heart rate 71 /min PA Usha Roe PA Work Phone: [facility] Work Phone: 12-26-2021 08:53-0400 Respiratory rate 14 /min PA Usha Roe PA Work Phone: [facility] Work Phone: 12-26-2021 08:53-0400 SaO2% (BldA) [Mass fraction] 97 % PA Usha Roe PA Work Phone: [facility] Work Phone: 12-26-2021 08:53-0400 Systolic blood pressure 124 mm[Hg] PA Usha Roe PA Work Phone: [facility] Work Phone: 12-21-2021 10:03-0400 Body height 151 cm Long Jackson MD Work Phone: [facility] 12-21-2021 10:03-0400 Body weight 73.21 kg Long Jackson MD Work Phone: [facility] 12-21-2021 10:03-0400 Diastolic blood pressure 72 mm[Hg] Long Jackson MD Work Phone: [facility] 12-21-2021 10:03-0400 Systolic blood pressure 118 mm[Hg] Long Jackson MD Work Phone: [facility] 11-13-2021 10:57-0400 Body temperature 98.4 [degF] PA Usha Roe PA Work Phone: [facility] Work Phone: 11-13-2021 10:57-0400 Diastolic blood pressure 66 mm[Hg] PA Usha Roe PA Work Phone: [facility] Work Phone: 11-13-2021 10:57-0400 Heart rate 70 /min PA Usha Roe PA Work Phone: [facility] Work Phone: 11-13-2021 10:57-0400 Respiratory rate 14 /min PA Usha Roe PA Work Phone: [facility] Work Phone: 11-13-2021 10:57-0400 SaO2% (BldA) [Mass fraction] 98 % PA Usha Roe PA Work Phone: [facility] Work Phone: 11-13-2021 10:57-0400 Systolic blood pressure 118 mm[Hg] PA Usha Roe PA Work Phone: [facility] Work Phone: 11-13-2021 10:57-0400 Body temperature 98.4 [degF] PA Usha Roe PA Work Phone: [facility] Work Phone: 11-13-2021 10:57-0400 Diastolic blood pressure 66 mm[Hg] PA Usha Roe PA Work Phone: [facility] Work Phone: 11-13-2021 10:57-0400 Heart rate 70 /min PA Usha Roe PA Work Phone: [facility] Work Phone: 11-13-2021 10:57-0400 Respiratory rate 14 /min PA Usha Roe PA Work Phone: [facility] Work Phone: 11-13-2021 10:57-0400 SaO2% (BldA) [Mass fraction] 98 % PA Usha Roe PA Work Phone: [facility] Work Phone: 11-13-2021 10:57-0400 Systolic blood pressure 118 mm[Hg] PA Usha Roe PA Work Phone: [facility] Work Phone: 09-07-2021 08:10-0500 Body height 152.4 cm PA Usha Roe PA Work Phone: [facility] Work Phone: Encounters Encounter Date Encounter Type Care Provider Facility Start: 03-26-2025 ambulatory Keith Frederick Facility :[facility] Start: 03-17-2025 End: 03-20-2025 Telephone encounter Keith Frederick MD Work Phone: [facility] Comment on above: Results Start: 02-27-2025 End: 03-06-2025 Telephone encounter Keith Frederick MD Work Phone: [facility] Comment on above: Results; Forms (Well ness ) Start: 02-26-2025 End: 02-26-[address] Keith Frederick MD Work Phone: -Laboratory Start: 02-26-2025 Encounter for genera l adult medical examination without abnormal findings KEITH FREDERICK [facility] Start: 02-26-2025 End: 02-26-2025 Patient encounter procedure Keith Frederick MD Work Phone: [facility] Comment on above: Well adult exam (Essence tequila Dx); Elevated alkaline phosphatase level; Elevated blood sugar; Screening for depression; Encounter for screening examination for other mental health and behavioral disorders; Encounter for screening mammogram for breast cancer Start: 02-26-2025 End: 02-26-2025 Patient encounter status Keith Frederick MD Work Phone: [facility] Start: 02-26-2025 End: 02-26-2025 ambulatory KEITH FREDERICK Facility:[facility] Start: 02-25-2025 End: 02-25-2025 Telephone encounter Keith Frederick MD Work Phone: [facility] Comment on above: Results Start: 02-25-2025 Registered [employer] K ASSESSMENT -Employee Health Start: 02-25-2025 End: 02-26-2025 ambulatory Keith Frederick Facility:[facility] Start: 06-26-2024 End: 07-01-2024 ambulatory Keith Frederick MD Work Phone: Internal Medicine [facility] Start: 04-23-2024 End: 04-26-2024 ambulatory Keith Frederick MD Work Phone: [facility] Comment on above: Covid FMLA Start: 12-18-2023 End: 12-18-[address] Manuel Noland Work Phone: [facility] Work Phone: Start: 12-18-2023 End: 12-18-[address] Manuel Noland Work Phone: [facility] Work Phone: Start: 11-10-2023 End: 11-10-2023 Patient encounter procedure Keith Frederick MD Work Phone: [facility] Comment on above: Well adult exam (Essence tequila Dx); Elevated LFTs; Encounter for screening for diabetes mellitus; Encounter for lipid screening for cardiovascular disease Start: 11-10-2023 End: 11-10-2023 Patient encounter status Keith Frederick MD Work Phone: [facility] Work Phone: Start: 11-01-2023 End: 11-02-2023 Emergency department patient visit Dr. Manuel Noland Work Phone: [facility] Work Phone: Start: 10-06-2023 End: 10-06-[address] Manuel Noland Work Phone: [facility] Work Phone: Start: 09-28-2023 End: 09-28-2023 Patient encounter procedure Long Jackson MD Work Phone: OB/Gynecology Comment on above: Encounter for gyneco logical examination (general) (routine) without abnormal findings (Primary Dx); Encounter for screening mammogram for breast cancer Start: 09-28-2023 End: 09-28-2023 Patient encounter status Long Jackson MD Work Phone: [facility] Start: 09-24-2023 End: 09-24-2023 Evaluation and management of inpatient Dr. Manuel Noland Work Phone: [facility] Work Phone: Start: 09-24-2023 End: 09-24-[address] Manuel Noland Work Phone: [facility] Work Phone: Start: 09-24-2023 Non-patient / Non-visit Dr. Yosi Noland Work Phone: [facility] Start: 09-24-2023 Evaluation and manag ement of inpatient [facility] Work Phone: Start: 07-05-2023 ambulatory Keith owens MD Work Phone: Internal Medicine [facility] Start: 06-26-2023 ambulatory Logn Bentley Work Phone: OB/Gynecology Comment on above: Healthy living progr am form Start: 06-22-2023 Telephone encounter Long purvis MD Work Phone: OB/Gynecology Comment on above: Forms/letter Start: 10-26-2022 Chart abstracting Long Jackson MD Work Phone: OB/Gynecology Comment on above: Results Start: 10-26-2022 End: 10-26-2022 ambulatory [facility] Work Phone: Start: 10-26-2022 End: 10-26-2022 Patient encounter procedure [facility] Start: 09-06-2022 End: 09-06-2022 Patient encounter procedure Long Jackson MD Work Phone: OB/Gynecology Comment on above: care and examination (Primary Dx); Cervical cancer screening Start: 08-09-2022 Telephone encounter Long purvis MD Work Phone: OB/Gynecology Comment on above: FMLA Paperwork Start: 07-28-2022 ambulatory Keith owens MD Work Phone: Internal Medicine [facility] Start: 07-26-2022 ambulatory Long Bentley Work Phone: OB/Gynecology Comment on above: Ob Delivery Note FMLA paperwork Start: 07-26-2022 E-mail encounter fro m caregiver Long Jackson MD Work Phone: [facility] Start: 07-26-2022 End: 07-27-2022 Evaluation and management of inpatient [facility] Start: 07-22-2022 End: 07-22-2022 Patient encounter procedure Long Jackson MD Work Phone: OB/Gynecology Comment on above: Antepartum multigrav jigna of advanced maternal age (Primary Dx); 38 weeks gestation of Start: 07-19-2022 End: 07-19-2022 ambulatory KRISTEN PETERSON Work Phone: [facility] Work Phone: Start: 07-19-2022 End: 07-19-2022 Patient encounter procedure KRISTEN PETERSON Work Phone: [facility] Out[facility] Start: 07-15-2022 End: 07-15-2022 ambulatory PA Usha PETERSON Work Phone: [facility] Work Phone: Start: 07-15-2022 End: 07-15-2022 Patient encounter procedure Long Jackson MD Work Phone: OB/Gynecology Comment on above: Antepartum multigrav jigna of advanced maternal age (Primary Dx); 37 weeks gestation of ; 30 weeks gestation of ; GDM, class A2 Start: 07-12-2022 End: 07-12-2022 ambulatory KRISTEN PETERSON Work Phone: [facility] Work Phone: Start: 07-12-2022 End: 07-12-2022 Patient encounter procedure KRISTEN PETERSON Work Phone: [facility] Out[facility] Start: 07-11-2022 Telephone encounter Tahmina Blackwood MD Work Phone: OB/Gynecology Comment on above: Patient Question Start: 07-06-2022 End: 07-06-2022 Patient encounter procedure Tahmina Blackwood MD Work Phone: OB/Gynecology Comment on above: 36 weeks gestation o f (Primary Dx); AMA (advanced maternal age) multigravida 35+, third trimester; Diet controlled gestational diabetes mellitus (GDM) in third trimester GDM, class A2 (Prima ry Dx); Antepartum multigravida of advanced maternal age; 36 weeks gestation of Start: 07-02-2022 End: 07-02-2022 Patient encounter procedure KRISTEN PETERSON Work Phone: [facility] Start: 06-30-2022 End: 06-30-2022 ambulatory KRISTEN PETERSON Work Phone: [facility] Work Phone: Start: 06-30-2022 End: 06-30-2022 Patient encounter procedure KRISTEN PETERSON Work Phone: [facility] Start: 06-27-2022 Telephone encounter Argenislaura de la garza ENVIRONMENTAL INSPECTOR.CNM Work Phone: OB/Gynecology Comment on above: Weekly NST Start: 06-23-2022 End: 06-23-2022 Patient encounter procedure Angie Padilla ENVIRONMENTAL INSPECTOR.CNM Work Phone: OB/Gynecology Comment on above: 34 weeks gestation o f (Primary Dx); Antepartum multigravida of advanced maternal age; GDM, class A2 Start: 06-17-2022 End: 06-17-2022 ambulatory KRISTEN PETERSON Work Phone: [facility] Work Phone: Start: 06-17-2022 End: 06-17-2022 Patient encounter procedure KRISTEN PETERSON Work Phone: [facility] Start: 06-13-2022 Telephone encounter Angie wilkerson ENVIRONMENTAL INSPECTOR.CNM Work Phone: OB/Gynecology Comment on above: Orders Start: 06-10-2022 ambulatory Bere Bentley Work Phone: OB/Gynecology Comment on above: Insulin Start: 06-10-2022 E-mail encounter fro m caregiver Bere Mccauley MD Work Phone: [facility] Start: 06-10-2022 End: 06-10-2022 Patient encounter procedure Mable Stone MD Work Phone: Maternal Medicine Comment on above: Gestational diabetes mellitus, class A1 (Primary Dx); Antepartum multigravida of advanced maternal age; 32 weeks gestation of 32 weeks gestation o f (Primary Dx) Start: 06-02-2022 ambulatory Bere Bentley Work Phone: OB/Gynecology Comment on above: Glucose levels after starting humulin N Start: 05-26-2022 Telephone encounter Angie wilkerson ENVIRONMENTAL INSPECTOR.CNM Work Phone: OB/Gynecology Comment on above: Medication Problem Start: 05-25-2022 End: 05-25-2022 Patient encounter procedure Bere Mccauley MD Work Phone: OB/Gynecology Comment on above: 30 weeks gestation o f (Primary Dx); Antepartum multigravida of advanced maternal age; Gestational diabetes mellitus, class A1; GDM, class A2 Start: 05-12-2022 End: 05-12-2022 Patient encounter procedure Bere Mccauley MD Work Phone: OB/Gynecology Comment on above: 28 weeks gestation o f (Primary Dx); Gestational diabetes mellitus, class A1; Need for vaccination Start: 05-09-2022 Telephone encounter Long purvis MD Work Phone: OB/Gynecology Comment on above: Results Start: 05-07-2022 End: 05-07-2022 ambulatory KRISTEN PETERSON Work Phone: [facility] Work Phone: Start: 05-07-2022 End: 05-07-2022 Patient encounter procedure KRISTEN PETERSON Work Phone: [facility] Start: 05-04-2022 End: 05-04-2022 Patient encounter procedure KRISTEN PETERSON Work Phone: [facility] Start: 04-12-2022 End: 04-12-2022 Patient encounter procedure Tahmina Blackwood MD Work Phone: OB/Gynecology Comment on above: 24 weeks gestation o f (Primary Dx) Start: 03-11-2022 End: 03-11-2022 Patient encounter procedure Angie Padilla ENVIRONMENTAL INSPECTOR.CNM Work Phone: OB/Gynecology Comment on above: 19 weeks gestation o f (Primary Dx) Encounter for routin e screening for malformation using ultrasonics (Primary Dx); 19 weeks gestation of ; Elderly multigravida with antepartum condition or complication; 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 Start: 03-02-2022 Telephone encounter Cande Bond [facility] Work Phone: [facility] Comment on above: Results Start: 02-19-2022 End: 02-19-2022 Patient encounter procedure KRISTEN PETERSON Work Phone: [facility] Start: 02-17-2022 End: 02-17-2022 Patient encounter procedure Angie Padilla APRN.CNM Work Phone: OB/Gynecology Comment on above: 16 weeks gestation o f (Primary Dx); Antepartum multigravida of advanced maternal age; History of delivery, currently Start: 01-25-2022 Telephone encounter Hansel hamilton MD Work Phone: Maternal Medicine Comment on above: Maternity 21 results Start: 01-18-2022 End: 01-18-2022 Patient encounter procedure Hansel Farr MD Work Phone: Maternal Medicine Comment on above: AMA (advanced matern al age) multigravida 35+, first trimester (Primary Dx); Encounter for screening for nuchal translucency Antepartum multigrav jigna of advanced maternal age (Primary Dx); 12 weeks gestation of Start: 12-26-2021 End: 12-26-2021 Patient encounter procedure KRISTEN PETERSON Work Phone: [facility] Start: 12-23-2021 Chart abstracting Uhsa crain PA-C Work Phone: [facility] Comment on above: Outside Labs Results Start: 12-23-2021 End: 12-23-2021 Patient encounter procedure KRISTEN PETERSON Work Phone: [facility] Start: 12-21-2021 End: 12-21-2021 Patient encounter procedure Long Jackson MD Work Phone: OB/Gynecology Comment on above: Antepartum multigrav jigna of advanced maternal age (Primary Dx); History of delivery, currently Start: 12-09-2021 End: 12-09-2021 Nursing evaluation of patient and report Nurse Pnob [facility] Work Phone: OB/Gynecology Comment on above: Antepartum multigrav jigna of advanced maternal age (Primary Dx); with history of infertility, antepartum; History of gestational diabetes in prior , currently ; with history of section, antepartum; History of macrosomia in in prior , currently Start: 11-26-2021 Telephone encounter Argenis de la garza APRN.CNM Work Phone: OB/Gynecology Comment on above: +UPT Start: 11-13-2021 End: 11-13-2021 Patient encounter procedure KRISTEN PETERSON Work Phone: [facility] Start: 09-07-2021 End: 09-07-2021 Patient encounter procedure KRISTEN PETERSON Work Phone: [facility] Start: 06-22-2021 Patient encounter status Ngozi Dyer APRN.CNM Work Phone: [facility] Work Phone: Start: 05-10-2016 End: 10-18-2016 Patient requested procedure Keith Frederick MD Work Phone: [facility] Work Phone: Procedures Date Procedure Procedure Detail Performing Clinician Start: 02-26-[address] Keith Frederick MD Work Phone: Comment on above: Test Ordered: [id number] Mitochondrial (M2) AntibodyMitochondrial (M2) Antibody <20.0 Units Reference Range: 0.0-20.0 Negative 0.0 - 20.0 Equivocal 20.1 - 24.9 Positive >24.9Mitochondrial (M2) Antibodies are found in 90-96% ofpatients with primary biliary cirrhosis.Performed at: [address] [id number] Director: Ernie Baca PhD, Phone: [phone] Start: 02-26-2025 Adult depression screening assessment Keith Frederick MD Work Phone: Start: 02-25-2025 CBC W/DIFF/PLT (EXTERNAL LAB DONALD) [facility] Provider Start: 02-25-2025 Comprehensive metabolic 2000 panel - Serum or Plasma [facility] Provider Start: 02-25-2025 Lipid panel [facility] Provider Start: 02-25-2025 Serum inorganic phosphate measurement Dr[address] Keith Frederick MD Work Phone: Start: 02-25-2025 Urnls dip stick/tablet reagent auto microscopy Dr. Keith Frederick MD Work Phone: Start: 11-01-[address] Manuel Noland Work Phone: Start: 09-24-[address] Manuel Noland Work Phone: Start: 09-24-[address] Manuel Noland Work Phone: Start: 09-24-[address] Manuel Noland Work Phone: Start: 09-24-2023 US scan of gallbladder Start: 07-22-2022 URINE OB DIP B/O Long Jackson MD Work Phone: Start: 07-15-2022 URINE OB DIP B/O Long Jackson MD Work Phone: Start: 07-06-2022 URINE OB DIP B/O Tahmina Blackwood MD Work Phone: Start: 07-06-2022 Us preg uterus after 1st trimest 08/28 gestation Angie Padilla ENVIRONMENTAL INSPECTOR.CNM Work Phone: Start: 06-23-2022 URINE OB DIP B/O Angie Padilla ENVIRONMENTAL INSPECTOR.CNM Work Phone: Start: 06-10-2022 URINE OB DIP B/O Bere Mccauley MD Work Phone: Start: 06-10-2022 Us preg uterus after 1st trimest 08/28 gestation Bere Mccauley MD Work Phone: Start: 05-25-2022 URINE OB DIP B/O Bere Mccauley MD Work Phone: Start: 05-12-2022 URINE OB DIP B/O Bere Mccauley MD Work Phone: Start: 04-12-2022 URINE OB DIP B/O Tahmina Blackwood MD Work Phone: Start: 03-11-2022 Us preg uterus after 1st trimest 08/28 gestation Long Jackson MD Work Phone: Start: 02-17-2022 URINE OB DIP B/O Angie Padilla ENVIRONMENTAL INSPECTOR.CNM Work Phone: Start: 01-18-2022 URINE OB DIP B/O Long Jackson MD Work Phone: Start: 01-18-2022 Us nuchal translucency 1st gestation Long Jackson MD Work Phone: Start: 12-23-2021 CBCDIF (EXTERNAL) [facility] Provider Start: 12-23-2021 Hemoglobin A1c/Hemoglobin.total in Blood [facility] Start: 11-13-2018 End: 07-18-2019 H/O: section Previous section Keith Frederick MD Work Phone: H/O: section History of delivery, currently Long Jackson MD Work Phone: H/O: section History of delivery, currently Angie Padilla ENVIRONMENTAL INSPECTOR.CNM Work Phone: H/O: section Status pos t repeat low transverse section Comment on above: @39&2 History of cholecystectomy S/P cholecyste ctomy Dr. Manuel Noland Work Phone: Plan of Treatment Date Care Activity Detail Author Start: 05-12-2032 [facility] Start: 04-09-2029 Urine microalbumin profile DTAP,TDAP,TD (3 - Td or Tdap) [facility] Start: 09-06-2027 HPV TESTING HPV TESTING [facility] Start: 09-06-2027 PAP TESTING PAP TESTING [facility] Start: 09-06-2027 Screening for malignant neoplasm of cervix [facility] Start: 02-26-2026 Anxiety Screening Anxiety Screening [facility] Start: 02-26-2026 Covid-19 Vaccine ( season) Covid-19 Vaccine () [facility] Comment on above: Postponed from 04/28/2024 (Declined at t his time) Start: 02-26-2026 Depression Screening Depression Screening [facility] Start: 02-23-2026 End: 02-23-2026 Patient encounter procedure 02/23/2026 9:00 AM EDT Office Visit [facility] [address] [place], [place] [id number] Keith Frederick MD [address] [place] [phone] Wellness [facility] Comment on above: Wellness Start: 04-28-2025 Influenza vaccination Influenza Vaccine (#1) [facility] Start: 02-26-2025 End: 05-28-2025 ALK PHOS ISOENZYM BL ALK PHOS ISOENZYM BL Lab Routine Elevated alkaline phosphatase level Expected: 02/26/2025, Expires: 05/28/2025 [facility] Comment on above: Expected: 02/26/2025, Expires: Start: 02-26-2025 End: 05-28-2025 Gamma glutamyl transferase [Enzymatic activity/volume] in Serum or Plasma GGT Lab Routine Elevated alkaline phosphatase level Expected: 02/26/2025, Expires: 05/28/2025 [facility] Comment on above: Expected: 02/26/2025, Expires: Start: 02-26-2025 End: 05-28-2025 Hemoglobin A1c in Blood HEMOGLOBIN A1C Lab Routine Elevated blood sugar Expected: 02/26/2025, Expires: 05/28/2025 [facility] Comment on above: Expected: 02/26/2025, Expires: Start: 02-26-2025 End: 05-28-2025 Mitochondria Ab [Presence] in Serum by Immunofluorescence MITOCHONDRIAL M2 IGG SERUM Lab Routine Elevated alkaline phosphatase level Expected: 02/26/2025, Expires: 05/28/2025 [facility] Comment on above: Expected: 02/26/2025, Expires: Start: 02-26-2025 End: 02-26-2025 Patient encounter procedure 02/26/2025 9:00 AM EDT Office Visit Family [facility] [address] [place], [place] [address] Keith Frederick MD [address] [place], [place] [id number] Physical [facility] Comment on above: Physical Start: 11-13-2024 End: 11-13-2024 Patient encounter procedure 11/13/2024 8:40 AM EDT Office Visit Family [facility] [address] [place], [place] [id number] Keith Frederick MD [address] [place], [place] [id number] Physical [facility] Comment on above: Physical Start: 11-09-2024 Covid-19 Vaccine () Covid-19 Vaccine () [facility] Comment on above: Postponed from 04/28/2023 (Declined at t his time) Start: 10-01-2024 End: 10-01-2024 Patient encounter procedure 10/01/2024 4:00 PM EST Office Visit OB/Gynecology [address] [place] [address] Long Jackson MD [address] [place] [place] [address] ANNUAL OB/Gynecology Comment on above: ANNUAL Start: 08-27-2024 Depression Assessment Depression Assessment [facility] Comment on above: Postponed from 08/28/2023 (Declined at t his time) Start: 07-18-2024 HPV TESTING HPV TESTING [facility] Start: 07-18-2024 PAP TESTING PAP TESTING [facility] Start: 04-28-2024 Covid-19 Vaccine ( season) Covid-19 Vaccine ( season) [facility] Start: 04-28-2024 Influenza vaccination Influenza Vaccine (#1) [facility] Start: 11-10-2023 End: 02-09-2024 Comprehensive metabolic 2000 panel - Serum or Plasma COMP METABOLIC PANEL Lab Routine Elevated LFTs Expected: 11/10/2023, Expires: 02/09/2024 [facility] Work Phone: Comment on above: Expected: 11/10/2023, Expires: 4 Start: 11-10-2023 End: 02-09-2024 Hemoglobin A1c in Blood HGB A1C Lab Routine Well adult exam Encounter for screening for diabetes mellitus Expected: 11/10/2023, Expires: 02/09/2024 [facility] Work Phone: Comment on above: Expected: 11/10/2023, Expires: 4 Start: 11-10-2023 End: 02-09-2024 LIPID PANEL, NONFASTING LIPID PANEL, NONFASTING Lab Routine Well adult exam Encounter for lipid screening for cardiovascular disease Expected: 11/10/2023, Expires: 02/09/2024 [facility] Work Phone: Comment on above: Expected: 11/10/2023, Expires: Start: 11-01-2023 [facility] Start: 09-24-2023 Following clinical pathway protocol [facility] Start: 09-24-2023 Application of intermittent pneumatic compression device [facility] Start: 09-24-2023 Anes intraperitoneal upper abdomen w/laps nos ANES IPER UPR ABD NOS [facility] Start: 09-24-2023 Laps surg cholecystectomy w/cholangiography LAPARO CHOLECYSTECTOMY/GRAPH [facility] Start: 09-24-2023 Patient discharge [facility] Start: 09-24-2023 Ambulation without limitation [facility] Start: 09-24-2023 Following clinical pathway protocol [facility] Start: 09-24-2023 Taking patient vital signs [facility] Start: 09-24-2023 [facility] Start: 09-24-2023 Admission procedure [facility] Start: 09-24-2023 Cholecystocolostomy Laparoscopic, Cholecystectomy (Not Applicable) [facility] Start: 09-24-2023 Cholangiogram Cholangiogram/ O R,Initial [facility] Start: 09-24-2023 Fluoroscopic guidance O.R. Fluoro for C-Arm [facility] Start: 09-24-2023 Hospital admission, emergency, from emergency room, medical nature [facility] Start: 08-28-2023 Depression Assessment Depression Assessment [facility] Start: 04-28-2023 Covid-19 Vaccine () Covid-19 Vaccine () [facility] Start: 04-28-2023 Influenza vaccination Influenza Vaccine (#1) [facility] Start: 08-28-2022 DEPRESSION ASSESSMENT DEPRESSION ASSESSMENT [facility] Start: 07-27-2022 Application of abdominal corset [facility] Start: 07-27-2022 Patient discharge [facility] Start: 07-26-2022 End: 07-27-2022 [facility] Start: 07-26-2022 Post-anesthesia assessment [facility] Start: 07-26-2022 Administration of medication [facility] Start: 07-26-2022 Ambulation therapy management [facility] Start: 07-26-2022 Application of abdominal corset [facility] Start: 07-26-2022 Application of device [facility] Start: 07-26-2022 End: 07-26-2022 Application of intermittent pneumatic compression device [facility] Start: 07-26-2022 Assessment of risk of venous thromboembolism [facility] Start: 07-26-2022 Catheterization of vein [facility] Start: 07-26-2022 Deep breathing and coughing exercises [facility] Start: 07-26-2022 Exercises [facility] Start: 07-26-2022 Incentive spirometry [facility] Start: 07-26-2022 Measuring intake and output [facility] Start: 07-26-2022 End: 07-26-2022 Notification of physician [facility] Start: 07-26-2022 Procedure discontinued [facility] Start: 07-26-2022 Provision of activity privileges [facility] Start: 07-26-2022 Vital signs measurements [facility] Start: 07-26-2022 Wound care [facility] Start: 07-26-2022 section Repeat (Not Applicable) [facility] Start: 07-26-2022 Admission procedure [facility] Start: 07-19-2022 Nonstress test [facility] Start: 07-19-2022 Obstetric monitoring [facility] Start: 07-19-2022 Vital signs measurements [facility] Start: 07-19-2022 [facility] Start: 07-19-2022 Patient discharge [facility] Start: 07-15-2022 Procedure [facility] Work Phone: Start: 06-30-2022 Nonstress test [facility] Work Phone: Start: 06-30-2022 Obstetric monitoring [facility] Work Phone: Start: 06-30-2022 Vital signs measurements [facility] Work Phone: Start: 06-30-2022 [facility] Work Phone: Start: 06-30-2022 Patient discharge [facility] Work Phone: Start: 2022 Mammography [facility] Start: 2022 Screening for malignant neoplasm of breast Mammogram Screening [facility] Start: 06-13-2022 End: 06-13-2023 OBSTETRIC ULTRASOUND [facility]I OBSTETRIC ULTRASOUND [facility] Anc Imaging Routine GDM, class A2 Antepartum multigravida of advanced maternal age Expected: 06/13/2022, Expires: 06/13/2023 [facility] Work Phone: Comment on above: Expected: 06/13/2022, Expires: Start: 04-28-2022 Influenza vaccination INFLUENZA (#1) [facility] Start: 02-17-2022 End: 04-19-2022 ALPHA FETOPRO MATERNAL ALPHA FETOPRO MATERNAL Lab Routine 16 weeks gestation of Expected: 02/17/2022, Expires: 04/19/2022 [facility] Work Phone: Comment on above: Expected: 02/17/2022, Expires: 2 Start: 01-18-2022 End: 03-20-2022 Chromosome 21 trisomy [Presence] in Blood or Tissue by Cytogenetics [facility] Work Phone: Comment on above: Expected: 01/18/2022, Expires: 2 Start: 11-29-2021 End: 01-29-2022 Choriogonadotropin.beta subunit [Units/volume] in Serum or Plasma HCG QUANTITATIVE Lab Routine Early stage of Expected: 11/29/2021, Expires: 01/29/2022 [facility] Work Phone: Comment on above: Expected: 11/29/2021, Expires: 2 Start: 11-29-2021 End: 01-29-2022 PROGESTERONE BLD PROGESTERONE BLD Lab Routine Early stage of Expected: 11/29/2021, Expires: 01/29/2022 [facility] Work Phone: Comment on above: Expected: 11/29/2021, Expires: 2 Start: 10-31-2021 COVID-19 VACCINE (3 - Booster for Pfizer series) COVID-19 VACCINE (3 - Booster for Pfizer series) [facility] Start: 08-28-2021 DEPRESSION ASSESSMENT DEPRESSION ASSESSMENT [facility] Start: 07-28-2021 COVID-19 VACCINE (3 - Booster for Pfizer series) COVID-19 VACCINE (3 - Booster for Pfizer series) [facility] Start: 2000 Anxiety Screening Anxiety Screening [facility] Start: 2000 Depression Screening Depression Screening [facility] Start: 1994 Adult depression screening assessment DEPRESSION SCREENING [facility] Start: 1982 HEPATITIS B (1 of 3 - 3-dose series) HEPATITIS B (1 of 3 - 3-dose series) [facility] Start: 1982 Hepatitis B Vaccine (1 of 3 - 3-dose series) Hepatitis B Vaccine (1 of 3 - 3-dose series) [facility] Assessment of gestational age [facility] Work Phone: Bacteria identified in Urine by Culture URINE CULTURE Microbiology Routine Antepartum multigravida of advanced maternal age 0412/21/2021 10:41 AM EDT [facility] Work Phone: Chlamydia trachomatis+Neisseria gonorrhoeae DNA [Presence] in Unspecified specimen by DEBO with probe detection GC/CHLAMYDIA DNA DET Lab Routine Antepartum multigravida of advanced maternal age 0412/21/2021 10:39 AM EDT [facility] Work Phone: End: 07-26-2025 DBT Breast - bilateral screening YOSEF SCREENING W JOSE ROBERTO Radiology Routine Encounter for screening mammogram for breast cancer 1 Occurrences starting 06/26/2024 until 07/26/2025 [facility] Work Phone: Comment on above: 1 Occurrences starting 06/26/2024 until 07/26/2025 End: 03-28-2026 DBT Breast - bilateral screening YOSEF SCREENING W JOSE ROBERTO Radiology Routine Encounter for screening mammogram for breast cancer 1 Occurrences starting 02/26/2025 until 03/28/2026 [facility] Work Phone: Comment on above: 1 Occurrences starting 02/26/2025 until 03/28/2026 End: 08-28-2022 nonstress test NON-STRESS TEST Procedures Routine Antepartum multigravida of advanced maternal age 30 weeks gestation of Once per week for 6 Occurrences starting 05/25/2022 until 08/28/2022 [facility] Work Phone: Comment on above: Once per week for 6 Occurrences starting 05/25/2022 until 08/28/2022 nonstress test NON-S TRESS TEST Procedures Routine 34 weeks gestation of Antepartum multigravida of advanced maternal age GDM, class A2 Ordered: 06/23/2022 [facility] Work Phone: Comment on above: Ordered: 06/23/2022 Laboratory data interpretation [facility] Work Phone: End: 08-27-2023 YOSEF SCREENING YOSEF SCREENING Radiology Routine Encounter for screening mammogram for breast cancer 1 Occurrences starting 07/28/2022 until 08/27/2023 [facility] Work Phone: Comment on above: 1 Occurrences starting 07/28/2022 until 08/27/2023 End: 08-03-2024 YOSEF SCREENING YOSEF SCREENING Radiology Routine Encounter for screening mammogram for breast cancer 1 Occurrences starting 07/05/2023 until 08/03/2024 [facility] Work Phone: Comment on above: 1 Occurrences starting 07/05/2023 until 08/03/2024 NUCHAL TRANSLUCENCY WHI NUCHAL T RANSLUCENCY WHI Anc Imaging Routine Antepartum multigravida of advanced maternal age Ordered: 12/21/2021 [facility] Work Phone: Comment on above: Ordered: 12/21/2021 OBSTETRIC ULTRASOUND WHI OBSTETR IC ULTRASOUND WHI Anc Imaging Routine Antepartum multigravida of advanced maternal age Ordered: 01/18/2022 [facility] Work Phone: Comment on above: Ordered: 01/18/2022 OBSTETRIC ULTRASOUND WHI OBSTETR IC ULTRASOUND WHI Anc Imaging Routine Antepartum multigravida of advanced maternal age 30 weeks gestation of GDM, class A2 1 Occurrences starting 05/25/2022 [facility] Work Phone: Comment on above: 1 Occurrences starting 05/25/2022 PAP FLUID CERVICAL SCREENING PAP FLUID CERVICAL SCREENING Lab Routine Cervical cancer screening 09/06/2022 9:39 AM EST [facility] Work Phone: Patient Education [facility] Work Phone: Patient referral [facility] Work Phone: Procedure [facility] Work Phone: ROUTINE, GR OUP B STREP PCR ROUTINE, GROUP B STREP PCR Microbiology Routine 36 weeks gestation of AMA (advanced maternal age) multigravida 35+, third trimester Diet controlled gestational diabetes mellitus (GDM) in third trimester Ordered: 07/06/2022 [facility] Work Phone: Comment on above: Ordered: 07/06/2022 URINE OB DIP B/O URINE OB DIP B/ O Lab Routine 19 weeks gestation of Ordered: 03/11/2022 [facility] Work Phone: Comment on above: Ordered: 03/11/2022 End: 04-17-2026 US Abdomen RUQ US ABD RIGHT UPPER QUADRANT Radiology Routine Elevated alkaline phosphatase level 1 Occurrences starting 03/18/2025 until 04/17/2026 [facility] Work Phone: Comment on above: 1 Occurrences starting 03/18/2025 until 04/17/[address] [facility] Immunizations Immunization Date Immunization Notes Care Provider [facility] 07-04-2024 influenza, seasonal, injectable, preservative free Dr. Keith Frederick MD Work Phone: [facility] 07-04-2024 influenza virus vaccine, unspecified formulation Keith Frederick MD Work Phone: [facility] 07-13-2023 influenza, injectabl e, quadrivalent, preservative free [facility] 07-13-2023 influenza virus vaccine, unspecified formulation Keith Frederick MD Work Phone: [facility] 05-27-2022 influenza, injectabl e, quadrivalent, preservative free [facility] 05-27-2022 influenza, seasonal, injectable KRISTEN PETERSON Work Phone: [facility] 05-27-2022 influenza virus vaccine, unspecified formulation Long Jackson MD Work Phone: [facility] 05-12-2022 tetanus toxoid, redu osman diphtheria toxoid, and acellular pertussis vaccine, adsorbed Bere Mccauley MD Work Phone: [facility] 07-08-2021 influenza, injectabl e, quadrivalent, preservative free [facility] 07-08-2021 influenza, seasonal, injectable KRISTEN PETERSON Work Phone: [facility] 06-03-2020 influenza, injectabl e, quadrivalent, preservative free [facility] 06-03-2020 influenza, seasonal, injectable KRISTEN PETERSON Work Phone: [facility] 08-23-2019 influenza, injectabl e, quadrivalent, preservative free [facility] 08-23-2019 influenza, seasonal, injectable KRISTEN PETERSON Work Phone: [facility] 04-09-2019 tetanus toxoid, redu osman diphtheria toxoid, and acellular pertussis vaccine, adsorbed Argenis Dyer ENVIRONMENTAL INSPECTOR.CNM Work Phone: [facility] 06-11-2018 influenza, injectabl e, quadrivalent, preservative free [facility] 06-11-2018 influenza, seasonal, injectable KRISTEN PETERSON Work Phone: [facility] 07-10-2017 influenza, injectabl e, quadrivalent, preservative free [facility] 07-10-2017 influenza, seasonal, injectable KRISTEN PETERSON Work Phone: [facility] 10-04-2016 tetanus toxoid, redu osman diphtheria toxoid, and acellular pertussis vaccine, adsorbed Argenis Dyer ENVIRONMENTAL INSPECTOR.CNM Work Phone: [facility] Work Phone: 07-18-2016 influenza, injectabl e, quadrivalent, preservative free [facility] 07-18-2016 influenza, seasonal, injectable KRISTEN PETERSON Work Phone: [facility] 06-29-2015 influenza, injectabl e, quadrivalent, preservative free [facility] 06-29-2015 influenza, seasonal, injectable KRISTEN PETERSON Work Phone: [facility] 05-21-2014 influenza, injectabl e, quadrivalent, preservative free [facility] 05-21-2014 influenza, seasonal, injectable KRISTEN PETERSON Work Phone: [facility] 09-09-2013 Influenza virus vaccine KRISTEN PETERSON Work Phone: [facility] Payers Date Payer Category Payer Self-pay [id number] 2022 Private Health Insurance [id number] 2022 Unknown [id number] 2019 Unknown MMO MMO TPA [id number] 2019-Present [address] [place] [address] PPO [id number] 2019 Unknown MMO MMO TPA [id number] 2019-Present [address] [place] [address] PPO [id number] 2016 Unknown [id number] Unknown [id number] 2 Unknown [id number] 2 Unknown [id number] Social History Date Type Detail Facility Start: 05-12-2022 End: 11-01-2023 Tobacco smoking status NHIS Never smoked tobacco [facility] Start: 06-22-2021 End: 02-26-2025 Alcohol intake Current drinker of alcohol (finding) [facility] Start: 05-10-2016 History SDOH Alcohol Comment Rarely, not while [facility] Start: 1980 Sex Assigned At Not on file C [facility] Start: 11-19-2021 End: 07-15-2022 Exposure to SARS-CoV-2 (event) Not sure [facility] Start: 12-09-2021 Education 17 [facility] Start: 11-07-2021 [facility] Start: 12-26-2021 End: 11-01-2023 Tobacco smoking status NHIS Unknown if ever smoked [facility] Start: 05-30-2019 None [facility] Start: 1980 Sex Assigned At Female W [facility] Start: 05-12-2022 Tobacco use and exposure Smokeless tobacco non-user [facility] Start: 09-06-2022 End: 09-28-2023 History of Social function [facility] Start: 09-06-2022 End: 09-28-2023 Tobacco use panel [facility] Work Phone: National Score (1-10 0), lower number is lower risk 53 [facility] Medical Equipment Procedure Code Equipment Code Equipment Original Text Equipment Identifier Dates Cholecystocolostomy CLIP,HEMOLOC K [employer] FDA Start: 09-24-2023 Cholecystocolostomy CLIP,HEMOLOC K [employer] FDA Start: 09-24-2023 Cholecystocolostomy CLIP,HEMOLOC K MED [employer] FDA Start: 09-24-2023 Cholecystocolostomy CLIP,HEMOLOC K [employer] FDA Start: 09-24-2023 Cholecystocolostomy CLIP,HEMOLOC K [employer] FDA Start: 09-24-2023 Cholecystocolostomy CLIP,HEMOLOC K [employer] FDA Start: 09-24-2023 Start: 05-09-2022 End: 09-06-2022 Comment on above: 1 Strip four times d aily. Use as instructed 1 Each four times da lyndon. Use as instructed 1 Strip four times d aily. 1 Each daily at bedt mireya. Goals Date Patient Goal Desired Activity /State Functional Status Date Assessment Result Facility 09-24-2023 Functional status Ambulates;Up a d connie;Dangle Feet [facility] Work Phone: 07-26-2022 Functional status Activity Abili ty With Assist of 1 [facility] Work Phone: 02-17-2015 Are you deaf, or do you have serious difficulty hearing No 02/17/2015 8:36 AM Melina Hess RN No [facility] 02-17-2015 Are you blind, or do you have serious difficulty seeing, even when wearing glasses No 02/17/2015 8:36 AM Melina Hess RN No [facility] 02-17-2015 Do you have serious difficulty walking or climbing stairs No 02/17/2015 8:36 AM Melina Hess RN No [facility] 02-17-2015 Do you have difficul ty dressing or bathing No 02/17/2015 8:36 AM Melina Hess RN No [facility] 02-17-2015 Because of a physica l, mental, or emotional condition, do you have difficulty doing errands alone such as visiting a physician's office or shopping No 02/17/2015 8:36 AM Melina Hess RN No [facility] Mental Status Date Assessment Result Facility 09-24-2023 Cognitive function Level Of Cons ciousness Awake;Alert;Appropriate;Fol lows Commands [facility] Work Phone: 09-24-2023 Cognitive function Arousable To Voice/Nam e [facility] Work Phone: 07-26-2022 Cognitive function Level Of Cons ciousness Awake;Alert;Appropriate;Fol lows Commands [facility] Work Phone: 07-26-2022 Cognitive function Arousable To Voice/Nam [facility] Work Phone: 02-17-2015 Because of a physica l, mental, or emotional condition, do you have serious difficulty concentrating, remembering, or making decisions No 02/17/2015 8:36 AM Melina Hess RN No [facility] Clinical Notes 04-24-2019 to 03-20-2025 Telephone Encounter - Lou Miranda LPN - 03/20/2025 2:12 PM EDTTelephone Encounter - Lou Miranda LPN - 03/20/2025 2:12 PM EDTPatient Instructions Note Date & Type Note Facility 03-20-2025 Telephone encounter Note Patient returned call and went over results, notes from Usha PETERSON with understanding. Patient asking to have ultrasound order faxed to [facility] please. Printed order, face sheet, insurance card copy and faxed to [phone] as requested. [facility] 03-20-2025 Miscellaneous Notes Patient returned call and went over results, notes from Usha PETERSON with understanding. Patient asking to have ultrasound order faxed to [facility] please. Printed order, face sheet, insurance card copy and faxed to [phone] as requested. Left message for pt to contact office. Kunal Ibanez LPN Let patient know that alk phos was high but the breakdown of each fraction is in normal range. Given the elevated GGT though, I would recommend a simple US of the Liver just to make sure everything looks okay. Order placed. Usha Roe PA-C Received lab results done at [facility] ordered by PCP. Kunal Ibanez LPN Scan on 03/15/2025 9:34 AM by ProviderYoana PA-C: Chemistry documented in this encounter [facility] 03-18-2025 Telephone encounter Note Left message for pt to contact office. Kunal Ibanez LPN [facility] 03-18-2025 Telephone encounter Note Let patient know that alk phos was high but the breakdown of each fraction is in normal range. Given the elevated GGT though, I would recommend a simple US of the Liver just to make sure everything looks okay. Order placed. Usha Roe PA-C [facility] 03-17-2025 Telephone encounter Note Received lab results done at [facility] ordered by PCP. Kunal Ibanez LPN Scan on 03/15/2025 9:34 AM by ProviderYoana PA-C: Chemistry [facility] 03-06-2025 Telephone encounter Note Addressed in separate encounter. [facility] 03-06-2025 Miscellaneous Notes Addressed in separate encounter. See results in your inbox, top tray. Karyn Calhoun MA See if the alk Phos isoenzymes results are back yet. If not contact [facility] and see if they did the Alk Phos isoenzymes as ordered? Form faxed back to number below. Karyn Calhoun MA Form completed. Type of form: Wellness Form - Healthy living program - [facility]. Pt faxed this and stated she forgot this form to be completed from her appt on 02/26/25. Asking PCP to complete and fax back to number on form. Will update pt via [facility] or with results. Form received via fax When form is completed, Fax form to [facility] - , F#: [phone] Form has been forwarded to Physician Desk: Dr. Ant Calhoun MA Received lab results done at [facility] ordered by PCP. Kunal Ibanez LPN Scan on 02/27/2025 12:35 PM by Provider, SAUL Lees: Chemistry View External Labs - GGTP [ID [id number]] View External Labs - Alk Phos, A1c [ID [id number]] documented in this encounter [facility] 03-03-2025 Telephone encounter Note See results in your inbox, top tray. Karyn Calhoun MA [facility] 03-03-2025 Telephone encounter Note See if the alk Phos isoenzymes results are back yet. If not contact [facility] and see if they did the Alk Phos isoenzymes as ordered? [facility] 02-27-2025 Telephone encounter Note Form faxed back to number below. Karyn Calhoun MA [facility] 02-27-2025 Telephone encounter Note Form completed. [facility] 02-27-2025 Telephone encounter Note Type of form: Wellness Form - Healthy living program - [facility]. Pt faxed this and stated she forgot this form to be completed from her appt on 02/26/25. Asking PCP to complete and fax back to number on form. Will update pt via [facility] or with results. Form received via fax When form is completed, Fax form to [facility] [facility] - , F#: [phone] Form has been forwarded to Physician Desk: Dr. Ant Calhoun MA [facility] 02-27-2025 Telephone encounter Note Received lab results done at [facility] ordered by PCP. Kunal Ibanez LPN Scan on 02/27/2025 12:35 PM by Provider, NITA LeesC: Chemistry View External Labs - GGTP [ID [id number]] View External Labs - Alk Phos, A1c [ID [id number]] [facility] 02-26-2025 Instructions Keith Frederick MD - 02/26/2025 9:29 AM EDT We discussed your health and recent concerns: - Right upper quadrant discomfort: You mentioned occasional discomfort in your right upper abdomen, which you associate with dairy consumption. No specific treatment is needed at this time, but please monitor your symptoms and let me know if they worsen or become more frequent. - Leg swelling: You experience swelling in your legs, which improves overnight but has been more noticeable recently. I recommended trying a water pill (diuretic) to help reduce the swelling. This prescription has been sent to your preferred pharmacy. Please let me know if the swelling persists or worsens. - Blood sugar: Your blood sugar was slightly elevated at 108, but since you were not fasting, this is considered normal. I have ordered an A1c test to further evaluate your blood sugar levels. Please take the printed lab order to the hospital for testing. - Alkaline phosphatase (alk phos): Your alk phos level was mildly elevated, which may be related to your history of gallbladder removal. I have ordered additional blood tests, including an alk phos isoenzyme test, GGT, and mitochondrial antibody test, to determine the source of the elevation (e.g., liver, bone, or intestines). Depending on the results, further testing, such as a liver ultrasound or bone scan, may be needed. Please complete these labs as soon as possible. If you do not hear from me within a week of completing the tests, send me a message through [employer] to follow up. - Cholesterol: Your cholesterol levels are within acceptable ranges: - Triglycerides: 152 (slightly above the target of 150 or less, but not concerning). - HDL: 54 (above the target of 50 or higher for women). - LDL: 129 (within the target of less than 130 for someone without significant risk factors). No changes to your current management are needed. - Skin exam: The red dots on your skin are benign and genetic. You may notice more as you age, which is normal. No treatment is necessary. We discussed routine health maintenance: - I ordered a mammogram with tomosynthesis (3D imaging) for routine breast cancer screening. The order has been printed for you to schedule at [facility]. Follow-up plan: - Please complete the lab work and mammogram as discussed. If you do not hear from me within a week of completing the labs, send me a [employer] message to ensure we follow up on the results. - Schedule your next annual physical for one year from now at checkout. Let me know if you have any questions or concerns about your care plan. documented in this encounter [facility] 02-26-2025 History of Presen t illness Narrative Chief Complaint Patient presents with: Well Adult HPI Kirsty Santiago is a 44 year old female who presents here today for a Physical. Patient with Hx of elevated LFT's as well as those reviewed and addressed below in ROS. HM - Depression/Anxiety screening completed, negative. Requesting printed order for Mammogram completes through [facility]. Declines Covid vaccine. Kirsty reports experiencing right upper quadrant discomfort, which she attributes to dairy consumption. She denies any recent fevers, frequent headaches, sudden changes in hearing or vision, issues with her nose or throat, lumps or swelling in her neck, wheezing, hemoptysis, or productive cough. She also denies chest pain, palpitations, nausea, emesis, diarrhea, heartburn, dysuria, hematuria, myalgias, arthralgias, skin lesions, rashes, sores, easy bruising or bleeding, changes in heat or cold tolerance, increased thirst, syncope, seizures, or tremors. She also reports bilateral lower extremity edema, which worsens towards the end of the day and improves overnight. She notes that her legs are more swollen than they used to be, even on her days off. She wears BRO hose during the day at work. She expresses interest in trying a diuretic to see if it can lessen the swelling. Kirsty had a cholecystectomy last year and has been doing well since then. She denies any new health issues in her blood relatives. She has one sister, Patience, and two brothers, Jeremie and Zan. Past medical history, appointments, medications, allergies reviewed. Previous Medical History PAST MEDICAL HISTORY Diagnosis Date Antepartum anemia (HCC) 04/10/2019 Diet controlled gestational diabetes mellitus (GDM) in third trimester (HCC) 04/16/2019 Encounter for lipid screening for cardiovascular disease 11/10/2023 Encounter for screening for diabetes mellitus 11/10/2023 infertility Infertility, female Previous Surgical History PAST SURGICAL HISTORY Procedure Laterality Date DELIVERY ONLY 01/05/2017 DELIVERY ONLY 05/30/2019 RC/S DI/di twins, low transverse DELIVERY ONLY 07/26/2022 [facility] IVF PACKAGE REMOVAL GALLBLADDER 09/24/2023 UNSPECIFIED ORAL SURGERY PROCEDURE, BY REPORT [place] teeth extracted Family History FAMILY HISTORY Problem Relation Age of Onset Hypertension Mother Ulcerative Colitis Mother Hypertension Father Allergies Father other (Limbic Encephilitis) Father other (Epilepsy) Father No Known Problems Sister No Known Problems Brother No Known Problems Brother Cancer Maternal Grandmother multiple myeloma Cancer Maternal Grandfather Prostate cancer Genitourinary () Maternal Grandfather On dialysis COPD Paternal Grandmother Hypertension Paternal Grandmother Heart Paternal Grandmother No Known Problems Daughter No Known Problems Daughter No Known Problems Son Breast Cancer Paternal Aunt Asthma Paternal Aunt Paternal side of family other (pcos) Paternal Aunt Patient Allergies ALLERGIES Allergen Reactions Adhesive Unknown Current Medications Current Outpatient Medications on File Prior to Visit Medication Sig MULTIVITAMIN ORAL Take by mouth. No current facility-administered medications on file prior to visit. Social History Social History Tobacco Use Smoking status: Never Smokeless tobacco: Never Vaping Use Vaping status: Never Used Substance Use Topics Alcohol use: Yes Comment: Rarely, not while Drug use: No Review of Symptoms REVIEW OF SYSTEMS GENERAL: No weight loss, malaise or fevers HEENT: Negative for frequent or significant headaches, No changes in hearing or vision, no nose bleeds or other nasal problems NECK: Negative for lumps, goiter, pain and significant neck swelling RESPIRATORY: Negative for cough, hemoptysis, wheezing, COPD, dyspnea or shortness of breath CARDIOVASCULAR: Negative for chest pain, some leg swelling worse at the end of the day and wears bro hose. leg swelling, hypertension, CHF or palpitations GI: No nausea, vomiting, or diarrhea and No heartburn or reflux symptoms : No history of dysuria, frequency or blood MUSCULOSKELETAL: Negative for joint pain or swelling, back pain or muscle pain SKIN: Negative for lesions, rash, and itching PSYCH: Negative for sleep disturbance, mood disorder and recent psychosocial stressors HEMATOLOGY/LYMPHOLOGY: Negative for prolonged bleeding, bruising easily or swollen nodes ENDOCRINE: Negative for cold or heat intolerance, polyuria, polydipsia and goiter NEURO: No history of headaches, syncope, paralysis, seizures or tremors SEE HPI EXAM: BP 116/76 (BP Site: Left Arm, BP Position: Sitting, BP Cuff Size: Regular Adult) Pulse 70 Resp 16 Ht 151.1 cm (4' 11.5) Wt 74.8 kg (164 lb 12.8 oz) LMP 09/14/2023 BMI 32.73 kg/m Last 5 Encounter Wt Readings: Date: Wt: 02/26/2025 74.8 kg (164 lb 12.8 oz) 11/10/2023 73 kg (161 lb) 09/28/2023 70.8 kg (156 lb) 09/06/2022 72.1 kg (159 lb) 08/02/2022 74.6 kg (164 lb 6.4 oz) General Appearance: Well appearing, alert, in no acute distress, well-hydrated, well nourished.. Skin: Skin color, texture, turgor normal, no suspicious rashes or lesions. Head: Normocephalic, no masses, lesions, tenderness or abnormalities. Eyes: Anicteric sclera. Pupils are equally round and reactive to light. Extraocular movements are intact. . Ears: External ears, TM's normal, canals clear. Nose/Sinuses: Nares normal, septum midline, mucosa normal, no drainage or sinus tenderness. Oropharynx: Lips, mucosa, and tongue normal, teeth and gums normal, oropharynx normal. Neck: Supple, no adenopathy; thyroid symmetric, normal size, no bruits. Lungs: Lungs clear to auscultation. No wheezing, rhonchi, rales.. Heart: RRR without murmur, gallop, or rubs. No ectopy. Abdomen: Normal abdominal exam, Abdomen soft, non-tender. Bowel sounds normal. No masses, organomegaly. Extremities: No deformities, edema, skin discoloration,. Good capillary refill. . Musculoskeletal: Muscular strength intact, No joint swelling, deformity, or tenderness. Peripheral Pulses: Normal. Neurologic: Gait normal. Reflexes normal and symmetric. Sensation to light touch and crainal nerves 2-12 intact.. Health Maintenance List Mammogram Screening Never done Covid-19 Vaccine( season) due on 02/26/2026 Influenza Vaccine(1) due on 04/28/2025 Depression Screening due on 02/26/2026 Anxiety Screening due on 02/26/2026 Cervical Cancer Screening due on 09/06/2027 DTaP,Tdap,Td Vaccine(4 - Td or Tdap) due on 05/12/2032 Hepatitis C Screening Completed HIV Screening Completed Hepatitis B Vaccine Discontinued Data reviewed Latest Ref Rng 02/25/2025 WBC 3.4 - 10.8 K/uL 8.7 (E) RBC 4.14 - 5.80 M/uL 4.3 (E) Hemoglobin 12.6 - 17.7 g/dL 13.1 (E) Hematocrit 37.5 - 51.0 % 39.6 (E) MCV 79 - 97 fL 92.1 (E) MCH 26.6 - 33 Pg 30.5 (E) MCHC 31.5 - 35.7 g/dL 33.1 (E) RDW 12.3 - 15.4 % 12.4 (E) Platelet Count 150 - 379 k/uL 380 ! (E) Neutrophil % % 49.8 (E) Lymphocyte % % 38.7 (E) Monocyte % % 7.1 (E) Eosinophil % % 3.0 (E) Basophil % % 0.8 (E) NEUTROPHILS ABSOLUTE 1.4 - 7.0 k/uL 4.3 (E) LYMPHS ABSOLUTE 0.7 - 3.1 k/uL 3.35 ! (E) NA 136 - 145 mmol/L 137 (E) K 3.5 - 5.1 mmol/L 4.1 (E) Chloride 98 - 107 MEQ/L 102 (E) CO2 21 - 32 MEQ/L 23.8 (E) Glucose 74 - 106 MG/DL 108 ! (E) BUN 7 - 18 MG/DL 14 (E) Creatinine 0.6 - 1.3 MG/DL 0.65 (E) GFR mL/MIN 112 (E) Total Protein 6.4 - 8.2 gm/dL 6.9 (E) Albumin 3.2 - 4.6 gm/dL 4.3 (E) Calcium 8.5 - 10.1 mg/dL 9.4 (E) Bili Total 0.2 - 1 mg/dL 0.24 (E) AST 8 - 37 U/L 22 (E) ALT (SGPT) 12 - 78 U/L 25 (E) Alk Phos Total 45 - 117 U/L 152 ! (E) Direct Bilirubin 0.00 - 0.3 0.11 (E) Cholesterol, Total <=200 213 ! (E) Triglyceride <=150 152 ! (E) HDL CHOLESTEROL >=50 54 (E) LDL CHOLESTEROL <=130 129 (E) Assessment and Plan 1. Well adult exam (Z00.00) Comprehensive physical examination performed. No acute abnormalities noted. - Follow-up in one year for annual physical examination. - pt to work on weight loss. 2. Elevated alkaline phosphatase level (R74.8): New on screening labs Alkaline phosphatase level noted to be elevated and trending upwards. Potential sources include bone, liver, biliary ducts, and intestines. - Ordered alkaline phosphatase isoenzyme test and GGT to determine the source of elevation. - Ordered mitochondrial antibody test to rule out primary biliary cirrhosis. - Will consider liver ultrasound if tests indicate liver as the source. - [facility] if no results are communicated within a week. 3. Elevated blood sugar (R73.9): New on screening labs Blood glucose level was 108 mg/dL; patient was not fasting at the time of the test. - Ordered Hemoglobin A1c to assess long-term glucose control. 4. Screening for depression (Z13.31) Encounter for screening examination for other mental health and behavioral disorders (Z13.39) No signs of depression or other mental health disorders observed during the visit. 5. Encounter for screening mammogram for breast cancer (Z12.31) Due for routine mammogram screening. - Ordered mammogram with tomosynthesis views at [facility]. F/u in a year for WAE. Sooner if needed. Keith Frederick MD Recording using [employer] software for draft documentation of the visit was discussed with the patient/authorized account representative; all questions welcomed and answered. Patient/authorized account representative agreed to proceed documented in this encounter [facility] 02-26-2025 Note HNO ID: [id number] Author: KEITH FREDERICK MD Service: ? Author Type: Physician Type: Progress Notes Filed: 02/26/2025 10:12 Note Text: Chief Complaint Patient presents with: Well Adult HPI Kirsty Santiago is a 44 year old female who presents here today for a Physical. Patient with Hx of elevated LFT's as well as those reviewed and addressed below in ROS. HM - Depression/Anxiety screening completed, negative. Requesting printed order for Mammogram completes through [facility]. Declines Covid vaccine. Kirsty reports experiencing right upper quadrant discomfort, which she attributes to dairy consumption. She denies any recent fevers, frequent headaches, sudden changes in hearing or vision, issues with her nose or throat, lumps or swelling in her neck, wheezing, hemoptysis, or productive cough. She also denies chest pain, palpitations, nausea, emesis, diarrhea, heartburn, dysuria, hematuria, myalgias, arthralgias, skin lesions, rashes, sores, easy bruising or bleeding, changes in heat or cold tolerance, increased thirst, syncope, seizures, or tremors. She also reports bilateral lower extremity edema, which worsens towards the end of the day and improves overnight. She notes that her legs are more swollen than they used to be, even on her days off. She wears BRO hose during the day at work. She expresses interest in trying a diuretic to see if it can lessen the swelling. Kirsty had a cholecystectomy last year and has been doing well since then. She denies any new health issues in her blood relatives. She has one sister, Patience, and two brothers, Jeremie and Zan. Past medical history, appointments, medications, allergies reviewed. Previous Medical History PAST MEDICAL HISTORY Diagnosis Date Antepartum anemia (HCC) 04/10/2019 Diet controlled gestational diabetes mellitus (GDM) in third trimester ([facility]) 04/16/2019 Encounter for lipid screening for cardiovascular disease 11/10/2023 Encounter for screening for diabetes mellitus 11/10/2023 infertility Infertility, female Previous Surgical History PAST SURGICAL HISTORY Procedure Laterality Date DELIVERY ONLY 01/05/2017 DELIVERY ONLY 05/30/2019 RC/S DI/di twins, low transverse DELIVERY ONLY 07/26/2022 [facility] IVF PACKAGE REMOVAL GALLBLADDER 09/24/2023 UNSPECIFIED ORAL SURGERY PROCEDURE, BY REPORT [place] teeth extracted Family History FAMILY HISTORY Problem Relation Age of Onset Hypertension Mother Ulcerative Colitis Mother Hypertension Father Allergies Father other (Limbic Encephilitis) Father other (Epilepsy) Father No Known Problems Sister No Known Problems Brother No Known Problems Brother Cancer Maternal Grandmother multiple myeloma Cancer Maternal Grandfather Prostate cancer Genitourinary () Maternal Grandfather On dialysis COPD Paternal Grandmother Hypertension Paternal Grandmother Heart Paternal Grandmother No Known Problems Daughter No Known Problems Daughter No Known Problems Son Breast Cancer Paternal Aunt Asthma Paternal Aunt Paternal side of family other (pcos) Paternal Aunt Patient Allergies ALLERGIES Allergen Reactions Adhesive Unknown Current Medications Current Outpatient Medications on File Prior to Visit Medication Sig MULTIVITAMIN ORAL Take by mouth. No current facility-administered medications on file prior to visit. Social History Social History Tobacco Use Smoking status: Never Smokeless tobacco: Never Vaping Use Vaping status: Never Used Substance Use Topics Alcohol use: Yes Comment: Rarely, not while Drug use: No Review of Symptoms REVIEW OF SYSTEMS GENERAL: No weight loss, malaise or fevers HEENT: Negative for frequent or significant headaches, No changes in hearing or vision, no nose bleeds or other nasal problems NECK: Negative for lumps, goiter, pain and significant neck swelling RESPIRATORY: Negative for cough, hemoptysis, wheezing, COPD, dyspnea or shortness of breath CARDIOVASCULAR: Negative for chest pain, some leg swelling worse at the end of the day and wears bro hose. leg swelling, hypertension, CHF or palpitations GI: No nausea, vomiting, or diarrhea and No heartburn or reflux symptoms : No history of dysuria, frequency or blood MUSCULOSKELETAL: Negative for joint pain or swelling, back pain or muscle pain SKIN: Negative for lesions, rash, and itching PSYCH: Negative for sleep disturbance, mood disorder and recent psychosocial stressors HEMATOLOGY/LYMPHOLOGY: Negative for prolonged bleeding, bruising easily or swollen nodes ENDOCRINE: Negative for cold or heat intolerance, polyuria, polydipsia and goiter NEURO: No history of headaches, syncope, paralysis, seizures or tremors SEE HPI EXAM: BP 116/76 (BP Site: Left Arm, BP Position: Sitting, BP Cuff Size: Regular Adult) Pulse 70 Resp 16 Ht 151.1 cm (4' 11.5) Wt 74.8 kg (164 lb 12.8 oz) LMP 09/14/2023 (more content not included)... [facility] 02-25-2025 Telephone encounter Note Office has received outside lab results ordered by PCP. Pt has upcoming appt scheduled for 02/26/25. Please review for upcoming appt. Karyn Calhoun MA View External Labs - CBC [ID [id number]] View External Labs - Chemistry [ID [id number]] [facility] 02-25-2025 Miscellaneous Notes Office has received outside lab results ordered by PCP. Pt has upcoming appt scheduled for 02/26/25. Please review for upcoming appt. Karyn Calhoun MA View External Labs - CBC [ID [id number]] View External Labs - Chemistry [ID [id number]] documented in this encounter [facility] 06-26-2024 Note Patient Outreach (IN [facility]) KIRSTY SANTIAGO ([id number]) 1980 F Date Time Provider Department 06/26/24 KEITH FREDERICK INTANDRAE During your visit today, we recorded the following information about you: Allergies As of Date: 06/26/2024 Noted Allergy Reaction ADHESIVE 06/03/2021 16 - Unknown Date Reviewed: 11/12/2023 Reviewed by: Keith Frederick MD - Fully Assessed Visit Diagnosis:Encounter for screening mammogram for breast cancer [Z12.31] Order(s):YOSEF SCREENING W JOSE ROBERTO [[id number]] Order #: [id number] FUTURE Prescriptions as of 07/01/2024 - MULTIVITAMIN ORAL Take by mouth. Problem List As Of Date 06/26/2024 Noted Resolved Infertility counseling [Z31.69] 02/17/2015 10/24/2015 [...] 08/02/2022 Anemia in [O99.019] 05/09/2022 08/02/2022 Encounter for gynecological examination [Z01.41*11/10/2023 Encounter for screening for diabetes mellitus [*11/10/2023 Encounter Status:Closed by MARGOTH STARKEY on 07/01/24 [facility] 04-26-2024 Telephone encounter Note Please note. Patient no longer needs our assistance with [facility] paperwork. Keke Jackson MA [facility] 04-26-2024 Miscellaneous Notes Please note. Patient no longer needs our assistance with [facility] paperwork. Keke Jackson MA Type of form: [facility] Form received via fax When form is completed, Fax form to Form has been forwarded to Physician Desk: Dr. Ant Jackson MA documented in this encounter [facility] 04-24-2024 Telephone encounter Note Type of form: [employer] Form received via fax When form is completed, Fax form to Form has been forwarded to Physician Desk: Dr. Ant Jackson MA [facility] 11-10-2023 History of Presen t illness Narrative Chief Complaint Patient presents with: Physical HPI Kirsty Santiago is a 43 year old female who presents here today for Physical. Any new concerns today? None Patient was seen in [facility] ER for fall down the stairs. Currently seeing Podiatry. Patient also had her gallbladder removed in August. Had elevated Liver Enyzmes needed rechecked. Past medical history, appointments, medications, allergies reviewed. Previous Medical History PAST MEDICAL HISTORY Diagnosis Date Antepartum anemia 04/10/2019 Diet controlled gestational diabetes mellitus (GDM) in third trimester 04/16/2019 infertility Infertility, female Previous Surgical History PAST SURGICAL HISTORY Procedure Laterality Date DELIVERY ONLY 01/05/2017 DELIVERY ONLY 05/30/2019 RC/S DI/di twins, low transverse DELIVERY ONLY 07/26/2022 [facility] IVF PACKAGE REMOVAL GALLBLADDER 09/24/2023 UNSPECIFIED ORAL SURGERY PROCEDURE, BY REPORT [place] teeth extracted Family History FAMILY HISTORY Problem Relation Age of Onset [...] Known Problems Daughter No Known Problems Daughter Patient Allergies ALLERGIES Allergen Reactions Adhesive Unknown Current Medications Current Outpatient Medications on File Prior to Visit Medication Sig Ferrous Sulfate 142 mg (45 mg iron) TbER Take by mouth. (Patient not taking: Reported on 09/28/2023) multivitamin (CLASSIC ) 28 mg iron- 800 mcg tab(s) Take 1 tablet by mouth once daily. CHOLECALCIFEROL, VITAMIN D3, ORAL Take by mouth as directed. (Patient not taking: Reported on 09/28/2023) No current facility-administered medications on file prior to visit. Social History Social History Tobacco Use Smoking status: Never Smokeless tobacco: Never Vaping Use Vaping Use: Never used Substance Use Topics Alcohol use: Yes Comment: Rarely, not while Drug use: No Review of Symptoms REVIEW OF SYSTEMS GENERAL: No weight loss, malaise or fevers HEENT: Negative for frequent or significant headaches, No changes in hearing or vision, no nose bleeds or other nasal problems NECK: Negative for lumps, goiter, pain and significant neck swelling RESPIRATORY: Negative for cough, hemoptysis, wheezing, COPD, dyspnea or shortness of breath CARDIOVASCULAR: Negative for chest pain, leg swelling, hypertension, CHF or palpitations GI: No nausea, vomiting, or diarrhea and No heartburn or reflux symptoms : No history of dysuria, frequency or blood MUSCULOSKELETAL: Negative for joint pain or swelling, back pain or muscle pain. Just pain from her left foot injury. SKIN: Negative for lesions, rash, and itching PSYCH: Negative for sleep disturbance, mood disorder and recent psychosocial stressors HEMATOLOGY/LYMPHOLOGY: Negative for prolonged bleeding, bruising easily or swollen nodes ENDOCRINE: Negative for cold or heat intolerance, polyuria, polydipsia and goiter NEURO: No history of headaches, syncope, paralysis, seizures or tremors EXAM: BP 144/84 (BP Site: Left Arm, BP Position: Sitting, BP Cuff Size: Regular Adult) Pulse 60 Resp 16 Ht 152.4 cm (5') Wt 73 kg (161 lb) LMP 09/14/2023 BMI 31.44 kg/m BP 128/80 Pulse 60 Resp 16 Ht 152.4 cm (5') Wt 73 kg (161 lb) LMP 09/14/2023 BMI 31.44 kg/m Last 5 Encounter Wt Readings: Date: Wt: 11/10/2023 73 kg (161 lb) 09/28/2023 70.8 kg (156 lb) 09/06/2022 72.1 kg (159 lb) 08/02/2022 74.6 kg (164 lb 6.4 oz) 07/22/2022 80.9 kg (178 lb 4.8 oz) General Appearance: Well appearing, alert, in no acute distress, well-hydrated, well nourished.. Skin: Skin color, texture, turgor normal, no suspicious rashes or lesions. Head: Normocephalic, no masses, lesions, tenderness or abnormalities. Eyes: Anicteric sclera. Pupils are equally round and reactive to light. Extraocular movements are intact. . Ears: External ears normal, canals clear. Nose/Sinuses: Nares normal, septum midline, mucosa normal, no drainage or sinus tenderness. Oropharynx: Lips, mucosa, and tongue normal, teeth and gums normal, oropharynx normal. Neck: Supple, no adenopathy; thyroid symmetric, normal size, no bruits. Lungs: Lungs clear to auscultation. No wheezing, rhonchi, rales.. Heart: RRR without murmur, gallop, or rubs. No ectopy. Abdomen: Normal abdominal exam, Abdomen soft, non-tender. Bowel sounds normal. No masses, organomegaly. Extremities: No deformities, edema, skin discoloration, clubbing or cyanosis. Good capillary refill. . Musculoskeletal: Muscular strength intact, No joint swelling, deformity, or tenderness. Peripheral Pulses: Normal. Neurologic: Gait normal. Reflexes normal and symmetric. Sensation to light touch and crainal nerves 2-12 intact.. Health Maintenance List Hepatitis B Vaccine(1 of 3 - 19+ 3-dose series) Never done Mammogram Screening Never done Covid-19 Vaccine(2022- season) due on 04/28/2023 Depression Assessment Never done Pap Testing due on 09/06/2027 HPV Testing due on 09/06/2027 DTaP,Tdap,Td Vaccine(4 - Td or Tdap) due on 05/12/2032 Influenza Vaccine Completed Hepatitis C Screening Completed HIV Screening Completed HPV Vaccine Aged Out Data reviewed A/P ASSESSMENT/PLAN: 1. Well adult exam - ICD9: V70.0, ICD10: Z00.00 (primary diagnosis) - Counseled on healthy diet and regular exercise - Calcium intake with supplements or by diet of 1000 mg/day for under 50, 4723-9632 mg/day for 50+ - Discussed need and benefit for weight loss. BMI 31.44 kg/(m^2) - Follow up for annual exam in one year - HGB A1C - LIPID PANEL, NONFASTING 2. Elevated LFTs - ICD9: 790.6, ICD10: R79.89 Check - COMP METABOLIC PANEL: were elevated with her gal bladder but have not been f/u on. 3. Encounter for screening for diabetes mellitus - ICD9: V77.1, ICD10: Z13.1 Check - HGB A1C 4. Encounter for lipid screening for cardiovascular disease - ICD9: V77.91, V81.2, ICD10: Z13.220, Z13.6 Check - LIPID PANEL, NONFASTING F/u in a year or sooner if issues. Keith Frederick MD documented in this encounter [facility] 11-01-2023 Discharge summary Note Date/Time November 01, 2023 10:39pm [facility] Medical Records Department [address] [place] [address] Emergency Department Summary 11/01/23 MR#: [id number] Acct: [id number] Name: KIRSTY SANTIAGO SUSANNE Rep #:[id number] : 1980 43 From: Derian Bird MD PCP: Dr. Manuel Noland MD Status:REG ER Location: ED HPI History of Present Illness Chief Complaint: Lower Extremity Injury Informant: patient Occured/Mechanism Mechanism/Context: Yes fall Comment: Down several basement steps after slipping while carrying laundry Onset/Context/Timing Onset: Today (Just prior to arrival) Context: Sudden Onset Timing: Continuous Quality of Pain: Aching Location: Left ankle Current Severity: Moderate Maximum Severity: Severe Worsened by: Movement, bearing weight Relieved by: Remaining still Associated Symptoms Associated Symptoms: Negative for Parasthesia, Weakness or Loss of Funtion Narrative Narrative: Patient injured her left ankle unsure of exact mechanism but hurts on the outside of it and the top of her foot. No other injury. Able to bear weight but with significant pain and difficulty. [facility] Medical History Advanced maternal age (AMA) in Gestational diabetes Gestational diabetes History of in vitro fertilization History of loss of consciousness Infertility macrosomia Seasonal allergies Staph infection Tinea corporis Home Medications acetaminophen 325 mg tablet 650 mg (2 x 325 mg) PO Q4H PRN PRN Pain Or Fever #0 tabs 09/24/23 [Rx Last Taken Unknown] Allergy/AdvReac Type Severity Reaction Status Date / Time adhesive tape Allergy Unknown Verified 11/01/23 22:23 Family History Other Epilepsy Hypertension Skin cancer Surgical History H/O wisdom tooth extraction Hx of section S/P cholecystectomy Status post repeat low transverse section Social History household members: spouse and children Smoking Status: Never smoker alcohol intake: never ROS ROS ED Constitutional Constitutional ED: Denies chills or fever(s) Musculoskeletal Musculoskeletal: Reports extremity pain; Denies neck pain Integumentary Denies Abrasions, rash or wounds Neurologic Neurologic: Denies paresthesias or weakness EXAM Physical Exam Const Vital Signs: 11/01/23 22:21 Temperature 98.0 F Temperature Source Temporal Pulse Rate 73 Respiratory Rate 18 Blood Pressure 127/79 H Blood Pressure Mean 95 Pulse Ox 99 Oxygen Delivery Method Room Air Positive well nourished and well developed General Appearance ED: well developed and NAD Neck full ROM and supple Back/Spine normal ROM and normal to inspection Extremity Extremity Narrative: Tenderness, swelling, ecchymosis lateral aspect of the left ankle anterior to the lateral malleolus which is also tender. There is no deformity. Limited range of motion of the ankle and the foot due to pain but able. Nontender to base of the fifth metatarsal, medial malleolus, and the fibular head. All compartments of the lower leg soft and nondistended. Neurovascular intact distally. No other limitations or injuries. Neuro oriented x3, no focal motor deficits and no sensory deficits noted Sensorium / Orientation: alert Psych mental status grossly normal and thought process normal Skin no wounds Rashes: no rashes MDM MDM MDM Narrative Medical decision making narrative: Three-view x-ray series of the left ankle was obtained, I do not think she needsdedicated foot x-rays; on my interpretation it appears to show a lateral anterior calcaneus avulsion fracture. The mortise and other ankle components are intact. She is going to need crutches in order to bear weight she can barely do so on this, therefore I am putting her in a orthotic of the boot, given her crutches, she was given ibuprofen, and she will follow-up with podiatry for this fracture which is likely nonsurgical as I discussed with the patient. Radiography Diagnostic Testing: Clinical Impression(s) from Imaging Studies Ankle X-Ray 11/01/23 22:43 IMPRESSION: Possible fracture of the anterior process of the calcaneus. Electronically Signed: Angel Lemus MD at 23:47 EST , Discharge Plan Triage Chief Complaint: Lower Extremity Injury ED Provider: Derian Bird Dx/Rx/DC Orders Clinical Impression: Avulsion fracture of left calcaneus, Sprain of ankle, left Instructions: ED Fracture, Foot, ED Ankle Sprain (Adult) Prescriptions: No Action acetaminophen 325 mg Tablet 650 mg PO Q4H PRN PRN (Reason: Pain Or Fever) Qty: 0 0RF Primary Care Provider: Manuel Noland Referrals: Chandan Bravo DPM [Med Staff - Active Staff] - As soon as possible (call for appt) Manuel Noland MD [Primary Care Provider] - Activity Restrictions/Additional Instructions: Okay to remove boot for shower/bath, sleep, etc. Okay to ice, Tylenol, ibuprofen as needed for pain. Disposition Disposition: Home, Self Care What to do if you have Problems For any increased pain, shortness of breath, bleeding, nausea or vomiting, chestpain, or any unexpected problems, contact your Primary Care Provider. Call [facility] ([phone]) or report to the closest Emergency Room. Call 911 if necessary. 11/01/23 4935 <Electronically signed by Derian Bird MD> Cosigner Signature (if applicable): CC: DARIEN Bravo; Dr. Manuel Noland MD ~ Signed [facility] Work Phone: 1(529) 487-495502-01-2024 History of Present illness Narrative* Long Jackson MD - 09/28/2023 3:41 PM EST Barker Peeler offered: Patient declines. Kirsty is a 43 year old who presents for an annual gynecologic exam without complaints. She had her gallbladder removed Monday. Menses: cycles every 28-30 days and 7 days of flow. 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 NEURO: alert and oriented x3,exam grossly non-focal EXTREMITIES: normal ASSESSMENT/PLAN: 1) Health maintenance: Pap/HPV up to date. Mammogram ordered at [facility] per patient request Nutrition, exercise and routine health maintenance exams reviewed. 2) Contraception: none. Contraceptive options reviewed and information provided. 3) Follow up one year or sooner as needed Long Jackson MD [facility] Discharge summary Author Ty Tang [facility] September 24, 2023 11:54am Note Date/Time September 24, 2023 1 1:53am [facility] Medical Records Department [address] [place] [address] Instructions for Home/Discharge Instructions 09/24/23 1152 MR#: [id number] Acct: [id number] Name: KIRSTY SANTIAGO SUSANNE Rep #:[id number] : 1980 43 From: Ty cooper MD PCP: Dr. Manuel Noland MD Status:ADM IN Discharge Instructions Procedure Gallbladder Diet Discharge Diet: Light diet - advance as tolerated Activity Discharge Activity: May Not Drive (for 2-3 days or while taking narcotic pain medications.) and - (Do not drive, work heavy equipment or sign legal documents for 24 hours.) May shower in (days): 1 Lifting Restrictions: 20 lbs for 2 weeks Additional Activity Instructions:: Pain medication may cause nausea. You should typically eat light foods as you take your pain medications. Pain medication may also cause constipation. If this is a problem for you, please discuss with your doctor. Dressing / Incision Call your doctor if your incision/area has: Continuous Slow Oozing, Sudden Increased Bleeding, Increased Pain/ Swelling, Increased Redness and Foul Smelling Discharge Call your doctor if you observe: Fever of 101 or Higher Suture Line Care: Avoid Pulling/Pushing and Avoid Pinching/Bending Remove Dressing in: 2 days (Remove clear bandages in 2 days, remove Steri- Stripsin 7 to 10 days) Additional Dressing/Incision Instructions:: Leave operative bandaids on for 2 days. When you remove dressing, leave Steri-Strips on until your follow-up appointment, or until the Steri-Strips fall off on their own. Follow Up Care Please Follow Up With: Ty Tang MD When: Please call to schedule 2 week follow up appointment. [phone] Test Results: Test results from this visit will be discussed in further detail at your follow- up appointment, if applicable. Discharge Plan Admission Admit Date/Time: 09/24/23 06:53 Attending Provider: Ty Tang Primary Care Provider: Manuel Noland Instructions Additional Instructions / Restrictions: Alternate ibuprofen and Tylenol for pain, oxycodone for breakthrough pain. Discharge Orders/Prescriptions Prescriptions: New acetaminophen 325 mg Tablet 650 mg PO Q4H PRN PRN (Reason: Pain Or Fever) Qty: 0 0RF oxycodone 5 mg Tablet 5 - 10 mg PO Q4H PRN PRN (Reason: Pain Score 4-10/10) 5 Days Qty: 20 0RF Referrals / Follow Up: Manuel Noland MD [Primary Care Provider] - Disposition Disposition (needs filled in before D/C Order can be placed): Home, Self Care 09/24/23 8120<Electronically signed by Ty Tang MD>Ty Tang MD CC: Dr. Manuel Noland MD ~ Signed [facility] Work Phone: 1(889) 975-457501-28-2024 History and physical note Author Ty Tang [facility] September 24, 2023 10:12am Note Date/Time September 24, 2023 1 0:12am [facility] Medical Records Department [address] [place] [address] H&P Exam - Surgical 09/24/23 1011 MR#: [id number] Acct: [id number] Name: KIRSTY SANTIGAO Rep #:[id number] : 1980 43 From: Ty cooper MD PCP: Dr. Manuel Noland MD Status:ADM IN [place] [facility] [place] HPI - General General Date of Admission: 09/24/23 HPI Narrative KIRSTY SANTIAGO, is a 43 F who presents with right upper quadrant pain and nausea. The patient reports she has been dealing with these attacks since a year ago. She denies fevers or chills. She says the pain radiates to the back. It started late last night. [facility] History Advanced maternal age (AMA) in Gestational diabetes Gestational diabetes History of in vitro fertilization History of loss of consciousness Infertility macrosomia Seasonal allergies Staph infection Tinea corporis Home Medications NK 09/24/23 [History Last Taken Unknown] Allergy/AdvReac Type Severity Reaction Status Date / Time adhesive tape Allergy Unknown Verified 09/24/23 04:04 Family History Other Epilepsy Hypertension Skin cancer Surgical History H/O wisdom tooth extraction Hx of section Status post repeat low transverse section Social History (Updated 09/24/23 @ 04:[address] Ag Villa MD) household members: spouse and children Smoking Status: Never smoker alcohol intake: never ROS Constitutional Constitutional: Reports anorexia; Denies chills, fatigue or fever(s) Eyes Eyes: Denies blurry vision ENT HEENT: Denies abnormal hearing Cardiovascular Cardiovascular: Denies chest pain Respiratory/Chest Respiratory/Chest: Denies cough or dyspnea Gastrointestinal Gastrointestinal: Reports abdominal pain and nausea; Denies constipation or vomiting Genitourinary Genitourinary: Denies change in urinary stream Musculoskeletal Musculoskeletal: Denies abnormal gait or back pain Integumentary Integumentary: Denies jaundice Neurologic Neurologic: Denies abnormal gait Psychiatric Psychiatric: Denies anxiety Endocrine Endocrinology: Denies heat intolerance Hematologic/Lymphatic Hematologic/Lymphatic: Denies easy bleeding Vital Signs Vital Signs Vital Signs: 09/24/23 04:04 09/24/23 06:45 09/24/23 06:46 Temperature 97.9 F 98.4 F Temperature Source Temporal Temporal Pulse Rate 89 61 85 Respiratory Rate 16 16 16 Blood Pressure 138/83 H 106/68 135/74 H Blood Pressure Mean 101 80 94 Pulse Ox 98 98 99 Oxygen Delivery Method Room Air Room Air 09/24/23 07:46 09/24/23 08:46 09/24/23 09:46 Temperature 98.5 F 98.6 F 98.3 F Temperature Source Temporal Temporal Temporal Pulse Rate 82 88 80 Respiratory Rate 18 16 18 Blood Pressure 129/78 H 131/72 H 125/80 H Blood Pressure Mean 95 91 95 Pulse Ox 98 98 99 Oxygen Delivery Method Room Air Room Air Room Air 09/24/23 10:00 Temperature 98.4 F Temperature Source Temporal Pulse Rate 76 Respiratory Rate 16 Blood Pressure 130/84 H Blood Pressure Mean 99 Pulse Ox 97 Oxygen Delivery Method Room Air Weight Weight: 159 lb 9.835 oz Body Mass Index (BMI) 31.1 Physical Exam Const oriented x3 and no apparent distress Resp normal respiratory effort Cardio regular rate and regular rhythm GI soft to palpation Palpation: tender LUQ Extremity normal to inspection Results Lab / Micro Data 09/24/23 04:10 Labs: Laboratory Results - last 24 hr 09/24/23 04:10: WBC 9.6, RBC 4.14 L, Hgb 12.5, Hct 38.4, MCV 92.8, MCH 30.2, MCHC 32.6, RDW Std Deviation 41.6, RDW Coeff of Ella 12.2, Plt Count 356, MPV 9.1, Immature Gran % (Auto) 0.400, Neut % (Auto) 77.0 H, Lymph % (Auto) 14.2 L, Greer % (Auto) 6.4, Eos % (Auto) 1.6, Baso % (Auto) 0.4, Absolute Neuts (auto) 7.4, Absolute Lymphs (auto) 1.36, Nucleated RBC % 0, Total Bilirubin 0.50, Direct Bilirubin 0.22, AST 287 H, ALT 161 H, Alkaline Phosphatase 328 H, Troponin I High Sens 3, Total Protein 7.4, Albumin 3.8, Globulin 3.6, Lipase 56,Serum , Qual NEGATIVE Imaging Radiology Impression Gallbladder Ultrasound 09/24/23 04:54 IMPRESSION: undefined Assessment & Plan Assessment/Plan (1) Cholelithiasis with acute cholecystitis: QUALIFIERS: Biliary obstruction: without biliary obstruction Qualified Code(s): K80.00 - Calculus of gallbladder with acute cholecystitis without obstruction PLAN: The patient has normal white count but she does have a left shift. They performed ultrasound of her gallbladder which showed thickening and cholelithiasis suggestive of acute cholecystitis. The patient is having pain inher right upper quadrant rating to the back with nausea. Patient likely has acute cholecystitis and I recommend laparoscopic cholecystectomy. I discussed the procedure in detail with the patient. I discussed the risks, benefits, and alternatives of the procedure. I discussed the risks including but not limited to bleeding, infection, injury to surrounding organs such as the liver, bile duct, bowels. I did discuss the possibility of having to convert to an open procedure as well as the possibility that if any injuries occurred this may necessitate further surgery at a tertiary care center. Ty Tang MD Pager: [facility] [address] [place] [address], [address] [place] [id number] Office: 09/24/23 1012 <Electronically signed by Ty Tang MD> Cosigner Signature (if applicable): CC: Dr. Ty Tang MD; Dr. Manuel Noland MD~ Signed [facility] Work Phone: 1(436) 517-547401-28-2024 [facility] Discharge summary Author Ag Villa [facility] September 24, 2023 6:48am Note Date/Time September 24, 2023 4 :18am [facility] Medical Records Department [address] [place] [address] Emergency Department Summary 09/24/23 MR#: [id number] Acct: [id number] Name: KIRSTY SANTIAGO Rep #:[id number] : 1980 43 From: Ag Villa MD PCP: Dr. Manuel Noland MD Status:REG ER Location: ED HPI HPI - GI History of Present Illness Chief Complaint: Abd Pain Detail of Chief Complaint: Right upper quadrant abdominal pain that radiates through to her back assoc Informant: patient Abdominal Pain/Flank Pain Onset: Yesterday (Approximately 2200) Context: Sudden Onset Timing: Continuous and Waxes and wanes Quality: Aching and Cramping Location: RUQ Current Severity: Moderate Maximum Severity: Severe Worsened by: Nothing Relieved by: Nothing; Not Relieved By Antacids, Food or Remaining Still Nausea/Vomiting/Emesis GI Symptom: Positive for Nausea; Negative for Vomiting Diarrhea/Melena/Hematochezia GI Symptom: Negative for Diarrhea, Melena or Hematochezia Associated Symptoms Associated Symptoms: Negative for Dysuria, Frequency, Hematuria or Urgency Narrative Narrative: Patient is a 43-year-old woman who presents with crampy right upper quadrant pain that radiates to the intrascapular area 3 hours after having pizza. She had 2 prior episodes in the last year. There is a family history cholelithiasis. Past surgical history of and extraction of wisdom teeth. Patient did take Mylanta with no improvement. She denies black or maroon-colored stool. She denies history of renal or ureterolithiasis. She denies dysuria, frequency, urgency or hematuria. She denies chest discomfort. Denies dyspnea, dyspnea on exertion or cough. There is no history of trauma. She has not noted a rash. Prior similar symptoms: Yes Recent Illness/Hospitalization: No PFSH PFSH Medical History Advanced maternal age (AMA) in Gestational diabetes Gestational diabetes History of in vitro fertilization History of loss of consciousness Infertility macrosomia Seasonal allergies Staph infection Tinea corporis Allergy/AdvReac Type Severity Reaction Status Date / Time adhesive tape Allergy Unknown Verified 09/24/23 04:04 Family History Other Epilepsy Hypertension Skin cancer Surgical History H/O wisdom tooth extraction Hx of section Status post repeat low transverse section Social History (Updated 09/24/23 @ 04:[address] Ag Villa MD) household members: spouse and children Smoking Status: Never smoker alcohol intake: never ROS ROS ED Constitutional Constitutional ED: Denies chills, fever(s), subjective, sweats or weight loss Cardiovascular Cardiovascular: Denies chest pain or palpitations Respiratory/Chest Respiratory/Chest: Denies cough, dyspnea or dyspnea on exertion Gastrointestinal Gastrointestinal: Reports abdominal pain and nausea; Denies constipation, diarrhea, melena or vomiting Genitourinary Genitourinary ED: Denies dysuria, hematuria or urinary frequency Musculoskeletal Musculoskeletal: Reports back pain; Denies arthralgias, myalgias or neck pain Integumentary Denies rash Hematologic/Lymphatic Hematologic/Lymphatic: Denies easy bleeding or easy bruising EXAM Physical Exam Const Vital Signs: 09/24/23 04:04 Temperature 97.9 F Temperature Source Temporal Pulse Rate 89 Respiratory Rate 16 Blood Pressure 138/83 H Blood Pressure Mean 101 Pulse Ox 98 Oxygen Delivery Method Room Air Positive well nourished, well developed and obese Constitutional Narrative: Patient appears uncomfortable. She is fair skinned. General Appearance ED: well developed; Negative for pallor Nutritional Appearance: obese HEENT Reports moist mucous membranes normocephalic and atraumatic Eyes PERRL and EOMs intact bilaterally General Eye ED: Negative for scleral icterus Neck no lymphadenopathy, supple and no JVD Resp normal respiratory effort and clear to auscultation bilaterally Cardio regular rate, regular rhythm, S1 normal heart sound, S2 normal heart sound and no murmurs GI non-distended and no masses; Negative for non-tender Auscultation: hypoactive bowel sounds Palpation: soft, tender epigastric and RUQ and rebound tenderness present other (Clinical Stanford sign.); Negative for guarding, rigid, hepatomegaly, splenomegaly, hernia, mass or pulsatile mass Back/Spine no CVA tenderness Extremity full ROM Neuro CN's II-XII intact bilaterally and moves all extremities Sensorium / Orientation: alert Psych mental status grossly normal and thought process normal Skin no wounds General Skin Exam: Negative for jaundice or pallor MDM MDM MDM Narrative Medical decision making narrative: With right upper quadrant pain radiating through the back with a clinical Murphysign concern patient has biliary colic, acute cholecystitis versus 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 Doubt GERD. Doubt peptic ulcer disease. Doubt lower right lower lobe pneumonia. Unlikely atypical presentation for obstructing ureterolithiasis will obtain CBC to assess white count differential. Hepatic panel and lipase to evaluate for elevated transaminases and pancreatitis. UA toassess for blood. Patient was medicated with Zofran for nausea and ketorolac for her abdominal pain radiating through to her back History & Record Review Additional record(s) reviewed:: Prior inpatient record (Notes for and delivery were reviewed. 2021 in 2019. Patient did have gestational diabetes.),Prior ED visit (Sinusitis and finger laceration) and Prior labs Lab Data Attestation: I reviewed the patient's lab results. Lab results narrative: CBC is unremarkable. Labs: Laboratory Results - last 24 hr 09/24/23 04:10 WBC 9.6 RBC 4.14 L Hgb 12.5 Hct 38.4 MCV 92.8 MCH 30.2 MCHC 32.6 RDW Std Deviation 41.6 RDW Coeff of Ella 12.2 Plt Count 356 MPV 9.1 Immature Gran % (Auto) 0.400 Neut % (Auto) 77.0 H Lymph % (Auto) 14.2 L Greer % (Auto) 6.4 Eos % (Auto) 1.6 Baso % (Auto) 0.4 Absolute Neuts (auto) 7.4 Absolute Lymphs (auto) 1.36 Nucleated RBC % 0 Total Bilirubin 0.50 Direct Bilirubin 0.22 AST 287 H ALT 161 H Alkaline Phosphatase 328 H Total Protein 7.4 Albumin 3.8 Globulin 3.6 Lipase 56 Radiography Diagnostic Testing: Clinical Impression(s) from Imaging Studies Gallbladder Ultrasound 09/24/23 04:54 IMPRESSION: undefined Patient has cholelithiasis with acute cholecystitis per radiology read. There is thickening of the gallbladder wall. There appears to be pericholecystic fluid. In light of this finding Dr. Tang who is on for surgery was paged. Management Discussion w/another healthcare provider: [employer] (Spoke with Dr. Tang. He requested Zosyn, EKG and test. He will be in to see patient at 0730.) Treatment and Re-Evaluation :: Patient was reevaluated. Patient's pain decreased by 50% to 3. Patient still appears uncomfortable. Because of elevated AST ALT and alkaline phosphatase ultrasound was ordered. Also will medicate with morphine. Patient was informed that Dr. Merida see her within the next hour. Planis surgery after his 9:00 case. Discharge Plan Dx/Rx/DC Orders Clinical Impression: Elevated BP without diagnosis of hypertension, Cholelithiasis with acute cholecystitis Disposition Disposition: Acute Care Hospital [facility] What to do if you have Problems For any increased pain, shortness of breath, bleeding, nausea or vomiting, chestpain, or any unexpected problems, contact your Primary Care Provider. Call [facility] ([phone]) or report to the closest Emergency Room. Call 911 if necessary. 09/24/23 0634 <Electronically signed by Ag Villa MD> Cosigner Signature (if applicable): CC: Dr. Manuel Noland MD ~ Signed ADDENDUM by Dr. Ag Villa MD on 09/24/23 at 0644 EKG reveals a sinus bradycardia rate of 55. [place] interval is 122 ms. Cures duration is 86 ms. QT duration is 428 ms. [place] is normal. There is nonspecific changes noted in lead II and V3. There is no early transition. There are no old EKGs for comparison. Will obtain a troponin. 09/24/23 0644<Electronically signed by Ag Villa MD> Cosigner Signature (if applicable): cc: Dr. Manuel Noland MD ~* Signed ADDENDUM by Dr. Ag Villa MD on 09/24/23 at 0648 Serum test was negative. 09/24/23 0648<Electronically signed by Ag Villa MD> Cosigner Signature (if applicable): cc: Dr. Manuel Noland MD ~* Signed [facility] Work Phone: 1(219) 696-833410-27-2023 Miscellaneous Notes* Telephone Encounter - Lexie Richmond RN - 06/23/2023 2:20 PM EDT Form signed by provider and faxed. Lexie Richmond RN * Telephone Encounter - Long Jackson MD - 06/23/2023 11:04 AM EDT Noted & will sign Long Jackson MD * Telephone Encounter - Danya Rueda RN - 06/22/2023 8:30 AM EDT Received a fax from patient needing her Healthy Living Form signed by JAMES for her employer at [facility]. Patient last seen 08/2022 and has her annual exam with JAMES on 09/07/23. Form to JAMES to sign. Danya Rueda RN documented in [facility] History of Present illness Narrative* Danya Rueda RN - 10/26/2022 2:46 PM EST Received lab results from [facility] - Please review. Scan on 10/26/2022 1:53 PM by External Provider: Miscellaneous Lab documented in this encounterWestern [facility] Hospital01-10-2023 History of Present illness Narrative* Long Jackson MD - 09/06/2022 8:47 AM EST VISIT Obstetric History T2 L4 SAB1 IAB0 [...] Low Transverse Apgar1: 8 Apgar5: 9 Living: Eddie Santiago is a 42 year old year old here for visit. Delivery Summary: ROS/ Recovery: Feeding: Breast feeding problems: None Menses since delivery: none Menstrual pattern prior to : Regular periods Tatums since delivery: Not resumed Depression: denies symptoms [...] PACKAGE UNSPECIFIED ORAL SURGERY PROCEDURE, BY REPORT [place] teeth extracted FAMILY HISTORY Problem Relation Age [...] external genitalia normal, normal Bartholin's glands, urethra, [place]'s glands, no vulvar lesions, no cervical lesions, [...] H/o GDM - PP screening ordered at [facility] Long Jackson MD documented in this encounterWestern [facility] Hospital12-13-2022 Miscellaneous Notes* Telephone Encounter - Bernarda Henderson LPN - 08/09/2022 11:06 AM EST [facility] paperwork completed, faxed to employer , scanned into EMR and filed in VASCULAR TECHNOLOGIST suite. Bernarda Henderson LPN * Telephone Encounter - Bernarda Henderson LPN - 08/09/2022 8:16 AM EST [place] return to work forms completed and placed on providers desk for signature. Bernarda Henderson LPN documented in this encounterWestern [facility] Hospital12-01-2022 Miscellaneous Notes* Telephone Encounter - Bernarda Santiago DOUGLASS - 07/28/2022 3:51 PM EST [place] paperwork completed, faxed to employer, scanned into EMR and filed in [employer]ASC[employer] TECHN[employer]IST suite. Bernarda Henderson LPN * Telephone Encounter - Bernarda Henderson LPN - 07/28/2022 9:01 AM EST FMLA paperwork completed and placed on providers desk for signature. Bernarda Henderson LPN * Telephone Encounter - Bernarda Henderson LPN - 07/26/2022 2:02 PM EST Received [facility] paperwork. Pt had c/s today. Will reach out to patient via [employer] for dates of leave. Bernarda Henderson LPN documented in this encounterWestern [facility] Hospital11-29-2022 History of Present illness Narrative* Comfort Claros RN - 07/26/2022 3:22 PM EST Patient delivered via by Dr. Jackson on 07/26/22 at [facility]. See OB history. Comfort Claros RN documented in this encounterWestern [facility] Hospital11-25-2022 Miscellaneous Notes* Quick Notes - Long Jackson MD - 07/22/2022 11:10 AM EST KJ - No VB/LOF/ctxs. Reports good FM. A&P: Pre-op for repeat today. Informed consent signed today. GDM - BS overall normal per patient. Continue NPH at bedtime. Reviewed labor & FM precautions Long Jackson MD documented in this encounterWestern [facility] Hospital11-25-2022 Instructions* Patient Instructions* Christine Higgins Ma - 07/22/2022 10:49 AM EST SEQUENTIAL SCREENINGS [facility] offers sequential screenings for women who [...] testing. It will require an appointment withour nuclear plant instrument technician. This is not an ultrasound performed [...] the above symptoms, contact our office at [phone] and ask to speak with anurse. After hours, you can call doctors registry at [phone] OR call [facility] at [phone] ask to have the doctor engine monitor paged. If you consider this an emergency, dial 9-5-3 or go to your nearest emergency department. NEED HELP? Are you dealing with a violent or abusive relationship? Are you a victim of rape or sexual assult? Call [facility] ([place]) 24 hour Crisis Hotline: 609.234.9021 or 371-650-1732. MANUAL Your Guide to a Healthy manual is now on-line. Visit [email or web address] to download your free copy documented in this encounterWestern Reserve Hospital11-18-2022 Miscellaneous Notes* Quick Notes - Long Jackson MD - 07/15/2022 9:25 AM EST KJ - VB No. LOF No. CTXS No. Movement: present. Other c/o: Yes: Other: still has itching all over body. Started after augmentin and a viral infection. Reports BS normal. Medication list reviewed. Physical Exam See Flow Sheet Gen: no accute distress, well appearing Abd: soft, nontender, gravid A/P 37w5d Estimated Date of Delivery: 07/31/22 Labs: LFT's & bile acids ordered at [facility] to exclude cholestasis. Suspect itching is viral related. GDM - BS normal, continue NPH at bedtime Anemia - encouraged Fe & Regular PNV use Labor precautions reviewed, Kick counts reviewed. MOD - repeat Long Jackson MD documented in this encounterWestern Reserve Hospital11-18-2022 Instructions* Patient Instructions* Christine Higgins Ma - 07/15/2022 8:55 AM EST SEQUENTIAL SCREENINGS [facility] offers sequential screenings for women who [...] testing. It will require an appointment withour nuclear plant instrument technician. This is not an ultrasound performed [...] the above symptoms, contact our office at [phone] and ask to speak with anurse. After hours, you can call doctors registry at [phone] OR call [facility] at [phone] ask to have the doctor engine monitor paged. If you consider this an emergency, dial 9--7 or go to your nearest emergency department. NEED HELP? Are you dealing with a violent or abusive relationship? Are you a victim of rape or sexual assult? Call [facility] ([place]) 24 hour Crisis Hotline: 445.221.9825 or 793-864-4629. MANUAL Your Guide to a Healthy manual is now on-line. Visit [email or web address] to download your free copy documented in this encounterWestern Reserve Hospital11-14-2022 Miscellaneous Notes* Telephone Encounter - Lexie Richmond RN - 07/11/2022 12:23 PM EST Spoke with charge nurse Cyndi on L&D. Cyndi said to have patient call and ask to speak with charge nurse instead of confidential secretary. Patient notified and will call today to schedule. Lexie Richmond RN * Telephone Encounter - Tahmina Blackwood MD - 07/11/2022 12:03 PM EST I don't know. Usually sees KJ. I told her she didn't need one last week b/c had BPP but don't know why they won't schedule her. Fax new order is fine. Thanks. Tahmina Blackwood MD * Telephone Encounter - Bernarda Henderson LPN - 07/11/2022 11:55 AM EST Pt calling and stated that she is having weekly NST at [facility], pt called this am and stated that she tried to call and schedule this for tomorrow and the L&D confidential secretary stated that we need to call togiven permission to schedule this. Was an order already sent over? I printed off the order, refaxedit and then contacted L&D. Bernarda Henderson LPN documented in this encounterWestern [facility] Hospital11-09-2022 Miscellaneous Notes* Quick Notes - Tahmina Blackwood MD - 07/06/2022 8:35 AM EST RR- VB No. LOF No. CTXS No. Movement: present. Other c/o: some pruritis w/o rash. Medication list reviewed. Physical Exam See Flow Sheet Abd: soft, nontender, gravid Ext: edema: 2+ A/P 36w3d Estimated Date of Delivery: 07/31/22 GBS today plans repeat c/s and tubal f/u in 1 week or prn GDMA2- bs log reviewed, excellent control Tahmina Blackwood M.D. documented in this encounterWestern Reserve Hospital11-09-2022 Instructions* Patient Instructions* Charis Echavarria Ma - 07/06/2022 8:01 AM EST SEQUENTIAL SCREENINGS [facility] offers sequential screenings for women who [...] testing. It will require an appointment withour nuclear plant instrument technician. This is not an ultrasound performed [...] the above symptoms, contact our office at [phone] and ask to speak with anurse. After hours, you can call doctors registry at [phone] OR call [facility] at [phone] ask to have the doctor engine monitor paged. If you consider this an emergency, dial 9--0 or go to your nearest emergency department. NEED HELP? Are you dealing with a violent or abusive relationship? Are you a victim of rape or sexual assult? Call [facility] ([place]) 24 hour Crisis Hotline: 911.820.2405 or 307-450-9076. MANUAL Your Guide to a Healthy manual is now on-line. Visit [email or web address] to download your free copy documented in this encounterWestern Reserve Hospital10-31-2022 Miscellaneous Notes* Telephone Encounter - Lexie Richmond RN - 06/27/2022 10:21 AM EDT Called and spoke with Patsy the charge nurse today on L&D. Patsy is going to call patient andget weekly NST's scheduled. Lexie Richmond RN * Telephone Encounter - Comfort Claros RN - 06/27/2022 9:41 AM EDT I did fax order and updated episode to L&D on 06/23/22. I spoke to charge nurse that day that patient was going to be calling to schedule these herself because she was a [facility] employee. Even added on the fax cover sheet that patient was going to be calling to schedule weekly NSTs herself. Comfort Claros RN * Telephone Encounter - Lexie Richmond RN - 06/27/2022 9:27 AM EDT Patient 35w1d needs weekly NST's. Patient was told she could do them at [facility] because she works there. Patient called them and tried to set them up, but was told that our office needs to set them up. Patient last seen 06/23 and NST done on that day. Does order need to be faxed to L&D for NST's? Lexie Richmond RN documented in this encounterWestern Reserve Hospital10-27-2022 History of Present illness Narrative* Angie Padilla APRN.CNM - 06/23/2022 2:46 PM EDT NST SUMMARY PROVIDER ASSESSMENT AND INTERPRETATION Kirsty Santiago is a 41 year old female, , who is at 34w4d with an CHHAYA of 07/31/2022, by Last Menstrual Period dating method. Indications for NST: AMA, Diabetes - Insulin Controlled, and Obesity Baseline: 130 Variability: Moderate Accelerations: Present 15 X 15 Decelerations: None Contractions: TOCO: None Interpretation: Category I and Reactive SIGNATURE: Angie Padilla APRN.CNM documented in this encounterWestern [facility]22 Miscellaneous Notes* Quick Notes - Angie Padilla APRN.CNM - 06/23/2022 2:30 PM EDT Kirsty Santiago is a 41 year old female [...] in 1 week for NST (completing at [facility] when gets off work) and 2 weeks for follow up growth US and INA. Patient needs to be physician only patient due to GDM A2. Angie Padilla APRN.CNM documented in this encounterWestern [facility] Hospital10-27-2022 Instructions* Patient Instructions* Aleah Lockwood Ma - 06/23/2022 1:49 PM EDT SEQUENTIAL SCREENINGS [facility] offers sequential screenings for women who [...] testing. It will require an appointment withour nuclear plant instrument technician. This is not an ultrasound performed [...] the above symptoms, contact our office at [phone] and ask to speak with anurse. After hours, you can call doctors registry at [phone] OR call [facility] at [phone] ask to have the doctor engine monitor paged. If you consider this an emergency, dial 9-8-3 or go to your nearest emergency department. NEED HELP? Are you dealing with a violent or abusive relationship? Are you a victim of rape or sexual assult? Call [facility] ([place]) 24 hour Crisis Hotline: 334.650.6909 or 613-853-7192. MANUAL Your Guide to a Healthy manual is now on-line. Visit [email or web address] to download your free copy documented in this encounterWestern Reserve Hospital10-17-2022 Miscellaneous Notes* Telephone Encounter - Angie Padilla APRN.CNM - 06/13/2022 1:03 PM EDT Orders signed. Angie Padilla APRN.CNM * Telephone Encounter - Comfort Claros RN - 06/13/2022 9:39 AM EDT Please file growth u/s order so patient can schedule. Comfort Claros RN * Telephone Encounter - Comfort Claros RN - 06/13/2022 9:39 AM EDT ----- Message from Bere Mccauley MD sent at 06/12/2022 5:44 PM EDT ----- Add to record Needs repeat growth US 4 weeks documented in this encounterWestern [facility] Hospital10-17-2022 Miscellaneous Notes* Telephone Encounter - Danya Rueda RN - 06/13/2022 9:04 AM EDT 33w1d 05/12 Office note states to repeat CBC at 32 weeks. [facility] lab order to CP to sign. Danya Rueda RN documented in this encounterWestern Reserve Hospital10-14-2022 Miscellaneous Notes* Quick Notes - Angie Padilla APRN.CNM - 06/10/2022 2:14 PM EDT Kirsty Santiago is a 41 year old female who presents at 32w5d for a routine visit. Just completed growth US with BPP. EFW 93%, MARIELLA normal at 16. BPP 8/8. Good movement. Denies any cramps or contractions. Denies headache, visual changes, chest pain, shortness of breath, vaginal bleeding, leakageof fluid, or dysuria. Feeling well, no complaints. Insulin increased on 06/03/22 to 12 units. Reviewed blood sugar logs. Fasting levels- 4 elevated out of 8 readings since insulin dose increased. PP -1 elevated level due to meal. Will have Dr. Mccauley review readings. PTL precautions reviewed. RTC in 2 weeks for INA or sooner if needed. Angie Padilla APRN.CNM documented in this encounterWestern [facility] Hospital10-14-2022 Instructions* Patient Instructions* Aleah Lockwood Ma - 06/10/2022 1:03 PM EDT SEQUENTIAL SCREENINGS [facility] offers sequential screenings for women who [...] testing. It will require an appointment withour nuclear plant instrument technician. This is not an ultrasound performed [...] the above symptoms, contact our office at [phone] and ask to speak with anurse. After hours, you can call doctors registry at [phone] OR call [facility] at [phone] ask to have the doctor engine monitor paged. If you consider this an emergency, dial 9-1-1 or go to your nearest emergency department. NEED HELP? Are you dealing with a violent or abusive relationship? Are you a victim of rape or sexual assult? Call [facility] ([place]) 24 hour Crisis Hotline: 658.595.6604 or 973-321-6850. MANUAL Your Guide to a Healthy manual is now on-line. Visit [email or web address] to download your free copy documented in this encounterWestern Reserve Hospital10-06-2022 Miscellaneous Notes* Telephone Encounter - Isela Bahena LPN - 06/02/2022 4:00 PM EDT Patient notified * Telephone Encounter - Bere Mccauley MD - 06/02/2022 3:53 PM EDT To increase bedtime NPH by 4 units for a total of 12 units at bedtime. Med list udated Typically taken right before going to bed or 8 hours prior to when she wakes up documented in this encounterWestern [facility] Hospital09-29-2022 Miscellaneous Notes* Telephone Encounter - Angie Padilla APRN.CNM - 05/26/2022 3:08 PM EDT Orders signed. Angie Padilla APRN.CNM * Telephone Encounter - Danya Rueda RN - 05/26/2022 12:42 PM EDT 30w4d Patient needing insulin needles sent to [facility] retail pharmacy. RX for insulin was sent yesterday without needles. Thank you. Requested Prescriptions Pending Prescriptions Disp Refills insulin needles, DISPOSABLE, 31 gauge x 5/16 30 Each 3 Si Each daily at bedtime. Danya Rueda RN documented in this encounterWestern Reserve Hospital09-28-2022 Miscellaneous Notes* Quick Notes - Bere Mccauley MD - 05/25/2022 1:38 PM EDT SW- Pt doing well. No ctx, vb, lof. Good FM. GDM: BG log reviewed and starting NPH 8 units at bedtime. Growth US and NST's ordered. Scheduled to get flu shot with work. RTO 2 wks. Bere Mccauley DO documented in this encounterWestern Reserve Hospital09-28-2022 Instructions* Patient Instructions* Dori Celeste MA - 05/25/2022 1:13 PM EDT SEQUENTIAL SCREENINGS [facility] offers sequential screenings for women who [...] testing. It will require an appointment withour nuclear plant instrument technician. This is not an ultrasound performed [...] the above symptoms, contact our office at [phone] and ask to speak with anurse. After hours, you can call doctors registry at [phone] OR call [facility] at [phone] ask to have the doctor engine monitor paged. If you consider this an emergency, dial 9--1 or go to your nearest emergency department. NEED HELP? Are you dealing with a violent or abusive relationship? Are you a victim of rape or sexual assult? Call [facility] ([place]) 24 hour Crisis Hotline: 336.581.2708 or 848-769-9753. MANUAL Your Guide to a Healthy manual is now on-line. Visit [email or web address] to download your free copy documented in this encounterWestern Reserve Hospital09-15-2022 Miscellaneous Notes* Quick Notes - Bere Mccauley MD - 05/12/2022 8:47 AM EDT SW- Pt doing well. No pain, vb, lof. Good FM. LARC declined. Still considering sterilization. Tdap today. GDM- Checking BG and log reviewed. 1 elevated fasting and 1 elevated PP. Growth US ~32 wks. Anemia- Cont iron. Recheck CBC ~32 wks. RTO 2 wks. Bere Mccauley DO documented in this encounterWestern Reserve Hospital09-15-2022 History of Present illness Narrative* Dori Celeste MA - 05/12/2022 8:38 AM EDT Patient identified by name and date of . Kirsty Santiago presents today for a vaccination of Tdap. Patient denies an allergy to latex: yes Patient denies a severe (life-threatening) allergy to a previous dose of Tdap, DTP, DTaP, DT or Td vaccine. Yes Patient denies history of epilepsy or neurological problems: Yes Patient is afebrile and denies being moderately or severely ill: Yes Patient denies history of Guillain-Livingston Syndrome (a severe paralytic illness): Yes Tdap Adacel injection was given without incident. See immunizations for details of immunizations administered today. VIS sheet provided: Yes Provider Bere Mccauley DO was present in office at time of injection. Dori Celeste MA documented in this encounterWestern Reserve Hospital09-15-2022 Instructions* Patient Instructions* Dori Celeste MA - 05/12/2022 8:32 AM EDT SEQUENTIAL SCREENINGS [facility] offers sequential screenings for women who [...] testing. It will require an appointment withour nuclear plant instrument technician. This is not an ultrasound performed [...] the above symptoms, contact our office at [phone] and ask to speak with anurse. After hours, you can call doctors registry at [phone] OR call [facility] at [phone] ask to have the doctor engine monitor paged. If you consider this an emergency, dial 9-1-2 or go to your nearest emergency department. NEED HELP? Are you dealing with a violent or abusive relationship? Are you a victim of rape or sexual assult? Call [facility] [place] ([facility] 24 hour Crisis Hotline: 832.665.6569 or 024-262-7539. MANUAL Your Guide to a Healthy manual is now on-line. Visit [email or web address] to download your free copy documented in this encounterWestern Reserve Hospital09-12-2022 Miscellaneous Notes* Telephone Encounter - Long Jackson MD - 05/09/2022 2:20 PM EDT Done Long Jackson MD * Telephone Encounter - Melina Macdonald RN - 05/09/2022 1:38 PM EDT Patient called back and she states she does not need glucometer or any diabetic teaching. Hgb 10.3.Aware to take iron supplement. Please file orders * Telephone Encounter - Melina Macdonald RN - 05/09/2022 1:23 PM EDT Left message for patient to return phone call. 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 Then we will send to [facility] to file. Also let her know about anemia * Telephone Encounter - Long Jackson MD - 05/09/2022 12:29 PM EDT Needs iron for anemia. GCT is 193 which indicates GDM. Does not need a 3hr. 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 Long Jackson MD * Telephone Encounter - Comfort Claros RN - 05/09/2022 10:31 AM EDT 28w1d Received CBC and 1 hour glucose results from [facility]. Please review. Results and order for 3 hour glucose test to [facility] to sign if appropriate. Patient does have h/o gestational diabetes with previous . Comfort Claros RN documented in this encounterWestern Reserve Hospital09-12-2022 History of Past illness Narrative* Problem Noted Date Resolved Date Insulin controlled gestation al diabetes mellitus (GDM) in third trimester 05/09/2022 08/02/2022 Anemia in 05/09/2022 08/02/2022 Overview: 05/09/22 - needs repeat CBC in 2-3 weeks - Long Jackson MD History of gestational diabe kelly in prior [...] ounce.TKRN History of gestational diabetes 06/22/2021 12/21/2021 Polyhydramnios in third trimester 04/24/2019 07/18/2019 Diet controlled gestational diabetes mellitus (GDM) in third trimester 04/16/2019 07/18/2019 Antepartum anemia 04/10/2019 07/18/2019 Overview: 05/21/19 Hgb 11.7 Eleanor Bryant APRN.[employer] 04/12/19 Hgb 10.2 Fe sulfate 325 mg daily on Mondays, Wednesdays and Fridays. Repeat CBC in one month. Eleanor Bryant APRN.[employer] Abnormal glucose in , antepartum 201807/18/2019 Overview: 04/09/19 1 hr GCT 149. 3 hr GTT ordered. 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 Baby A MARIELLA normal with appearance of marginal cord insertion of the dividing membrane. Baby B MARIELLA mildly increased. Follow up US in 3 weeks for growth and MARIELLA. Argenis Dyer APRN.CNM 11/13/18 - twin by IVF - Long Jackson MD Antepartum multigravida of advanced maternal age 0311/13/2018 08/02/2022 Overview: 12/09/2021 Patient is 41 years old. Advanced maternal age discussed. Noninvasive and invasive testing options discussed. Patient desires nuchal ultrasound and materniti 21 test. I have given patient contact information to [employer] to check on insurance coverage. TKRN Supervision of other normal 11/13/2018 12/04/2018 Overview: 11/13/18 - need to discuss CF screening - Long Jackson MD Female infertility 08/01/2018 11/13/2018 Overview: Added automatically from request for surgery [id number] Encounter for supervision of normal first in [...] of this encounter (statuses as of 08/09/2022) [facility] of Past illness Narrative* Problem Noted Date Resolved Date Insulin controlled gestation al diabetes mellitus (GDM) in third trimester 05/09/2022 08/02/2022 Anemia in 05/09/2022 08/02/2022 Overview: 05/09/22 - needs repeat CBC in 2-3 weeks - Long Jackson MD with history of infertility 12/09/2021 09/06/2022 [...] - baby A, repeat US scheduled - Long Jackson MD Previous section 11/13/20182018 Overview: 11/13/18 - plans for repeat section - Long Jackson MD Dichorionic diamniotic twin , antepartu m 11/13/2018 07/18/2019 Overview: 04/25/19 - start NST's at 32-34 weeks per - Long Jackson MD 03/28/19-Concordant DI/DI twins. Baby A MARIELLA normal with appearance of marginal cord insertion of the dividing membrane. Baby B MARIELLA mildly increased. Follow up US in 3 weeks for growth and MARIELLA. Argenis Dyer APRN.LISAM 11/13/18 - twin by IVF - Long Jackson MD Antepartum multigravida of advanced maternal age 0311/13/2018 08/02/2022 Overview: 12/09/2021 Patient is 41 years old. Advanced maternal age discussed. Noninvasive and invasive testing options discussed. Patient desires nuchal ultrasound and materniti 21 test. I have given patient contact information to [employer] to check on insurance coverage. TKRN Supervision of other normal 11/13/2018 12/04/2018 Overview: 11/13/18 - need to discuss CF screening - Long Jackson MD Female infertility 08/01/2018 11/13/2018 Overview: Added automatically from request for surgery [id number] Encounter for supervision of normal first in [...] of this encounter (statuses as of 09/06/2022) [facility] of Past illness Narrative* Problem Noted Date Resolved Date Insulin controlled gestation al diabetes mellitus (GDM) in third trimester 05/09/2022 08/02/2022 Anemia in 05/09/2022 08/02/2022 Overview: 05/09/22 - needs repeat CBC in 2-3 weeks - Long Jackson MD with history of infertility 12/09/2021 09/06/2022 [...] 149. 3 hr GTT ordered. 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 Baby A MARIELLA normal with appearance of marginal cord insertion of the dividing membrane. Baby B MARIELLA mildly increased. Follow up US in 3 weeks for growth and MARIELLA. Argenis Dyer APRN.CNM 11/13/18 - twin by IVF - Long Jackson MD Antepartum multigravida of advanced maternal age 0311/13/2018 08/02/2022 Overview: 12/09/2021 Patient is 41 years old. Advanced maternal age discussed. Noninvasive and invasive testing options discussed. Patient desires nuchal ultrasound and materniti 21 test. I have given patient contact information to [employer] to check on insurance coverage. TKRN Supervision of other normal 11/13/2018 12/04/2018 Overview: 11/13/18 - need to discuss CF screening - Long Jackson MD Female infertility 08/01/2018 11/13/2018 Overview: Added automatically from request for surgery [id number] Encounter for supervision of normal first in [...] of this encounter (statuses as of 10/26/2022) [facility] of Past illness Narrative* Problem Noted Date Diagnosed Date Resolved Date Insulin controlled gestation al diabetes mellitus (GDM) in third trimester 05/09/20222021 Anemia in 05/09/2022 08/02/20 Overview: 05/09/22 - needs repeat CBC in 2-3 weeks - Long Jackson MD with history of infertility 12/09/2021 09/06/2022 [...] 07/18/2019 Overview: 05/21/19 Hgb 11.7 Eleanor Bryant APRN.[employer] 04/12/19 Hgb 10.2 Fe sulfate 325 mg daily on Mondays, Wednesdays and Fridays. Repeat CBC in one month. Eleanor Bryant APRN.ANGELINA Abnormal glucose in , antepartum 04/10/2019 07/18/2019 Overview: 04/09/19 1 hr GCT 149. 3 hr GTT ordered. 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 Baby A MARIELLA normal with appearance of marginal cord insertion of the dividing membrane. Baby B MARIELLA mildly increased. Follow up US in 3 weeks for growth and MARIELLA. Argenis Dyer APRN.CNM 11/13/18 - twin by IVF - Long Jackson MD Antepartum multigravida of a dvanced maternal age 0311/13/2018 08/02/2022 Overview: 12/09/2021 Patient is 41 years old. Advanced maternal age discussed. Noninvasive and invasive testing options discussed. Patient desires nuchal ultrasound and materniti 21 test. I have given patient contact information to [employer] to check on insurance coverage. TKRN Supervision of other normal 11/13/2018 12/04/2018 Overview: 11/13/18 - need to discuss CF screening - Long Jackson MD Female infertility 08/01/2018 9 Overview: Added automatically from request for surgery [id number] Encounter for supervision of normal first in [...] of this encounter (statuses as of 06/23/2023) [facility] of Past illness Narrative* Problem Noted Date Diagnosed Date Resolved Date Insulin controlled gestation al diabetes mellitus (GDM) in third trimester 05/09/20222021 Anemia in 05/09/2022 08/02/20 22 Overview: 05/09/22 - needs repeat CBC in 2-3 weeks - Long Jackson MD with history of infertility 12/09/2021 09/06/2022 [...] 07/18/2019 Overview: 05/21/19 Hgb 11.7 Eleanor Bryant APRN.[employer] 04/12/19 Hgb 10.2 Fe sulfate 325 mg daily on Mondays, Wednesdays and Fridays. Repeat CBC in one month. Eleanor Bryant APRN.[employer] Abnormal glucose in , antepartum 04/10/2019 07/18/2019 Overview: 04/09/19 1 hr GCT 149. 3 hr GTT ordered. 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 Baby A MARIELLA normal with appearance of marginal cord insertion of the dividing membrane. Baby B MARIELLA mildly increased. Follow up US in 3 weeks for growth and MARIELLA. Argenis Dyer APRN.CNM 11/13/18 - twin by IVF - Long Jackson MD Antepartum multigravida of a dvanced maternal age 0311/13/2018 08/02/2022 Overview: 12/09/2021 Patient is 41 years old. Advanced maternal age discussed. Noninvasive and invasive testing options discussed. Patient desires nuchal ultrasound and materniti 21 test. I have given patient contact information to [employer] to check on insurance coverage. TKRN Supervision of other normal 11/13/2018 12/04/2018 Overview: 11/13/18 - need to discuss CF screening - Long Jackson MD Female infertility 08/01/2018 9 Overview: Added automatically from request for surgery [id number] Encounter for supervision of normal first in [...] of this encounter (statuses as of 06/26/2023) [facility] of Past illness Narrative* Problem Noted Date Diagnosed Date Resolved Date Insulin controlled gestation al diabetes mellitus (GDM) in third trimester 05/09/20222021 Anemia in 05/09/2022 08/02/20 Overview: 05/09/22 - needs repeat CBC in 2-3 weeks - Long Jackson MD with history of infertility 12/09/2021 09/06/2022 [...] 07/18/2019 Overview: 05/21/19 Hgb 11.7 Eleanor Bryant APRN.[employer] 04/12/19 Hgb 10.2 Fe sulfate 325 mg daily on Mondays, Wednesdays and Fridays. Repeat CBC in one month. Eleanor Bryant APRN.[employer] Abnormal glucose in , antepartum 04/10/2019 07/18/2019 Overview: 04/09/19 1 hr GCT 149. 3 hr GTT ordered. 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 Baby A MAIRELLA normal with appearance of marginal cord insertion of the dividing membrane. Baby B MARIELLA mildly increased. Follow up US in 3 weeks for growth and MARIELLA. Argenis Dyer APRN.CNM 11/13/18 - twin by IVF - Long Jackson MD Antepartum multigravida of a dvanced maternal age 0311/13/2018 08/02/2022 Overview: 12/09/2021 Patient is 41 years old. Advanced maternal age discussed. Noninvasive and invasive testing options discussed. Patient desires nuchal ultrasound and materniti 21 test. I have given patient contact information to [employer] to check on insurance coverage. TKRN Supervision of other normal 11/13/2018 12/04/2018 Overview: 11/13/18 - need to discuss CF screening - Long Jackson MD Female infertility 08/01/2018 9 Overview: Added automatically from request for surgery [id number] Encounter for supervision of normal first in [...] of this encounter (statuses as of 07/10/2023) [facility] of Past illness Narrative* Problem Noted Date Diagnosed Date Resolved Date Insulin controlled gestation al diabetes mellitus (GDM) in third trimester 05/09/20222021 Anemia in 05/09/2022 08/02/20 Overview: 05/09/22 - needs repeat CBC in 2-3 weeks - Long Jackson MD with history of infertility 12/09/2021 09/06/2022 [...] 07/18/2019 Overview: 05/21/19 Hgb 11.7 Eleanor Bryant APRN.[employer] 04/12/19 Hgb 10.2 Fe sulfate 325 mg daily on Mondays, Wednesdays and Fridays. Repeat CBC in one month. Eleanor Bryant APRN.[employer] Abnormal glucose in , antepartum 04/10/2019 07/18/2019 Overview: 04/09/19 1 hr GCT 149. 3 hr GTT ordered. 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 Baby A MARIELLA normal with appearance of marginal cord insertion of the dividing membrane. Baby B MARIELLA mildly increased. Follow up US in 3 weeks for growth and MARIELLA. Argenis Dyer APRN.CNM 11/13/18 - twin by IVF - Long Jackson MD Antepartum multigravida of a dvanced maternal age 0311/13/2018 08/02/2022 Overview: 12/09/2021 Patient is 41 years old. Advanced maternal age discussed. Noninvasive and invasive testing options discussed. Patient desires nuchal ultrasound and materniti 21 test. I have given patient contact information to [employer] to check on insurance coverage. TKRN Supervision of other normal 11/13/2018 12/04/2018 Overview: 11/13/18 - need to discuss CF screening - Long Jackson MD Female infertility 08/01/2018 9 Overview: Added automatically from request for surgery [id number] Encounter for supervision of normal first in [...] of this encounter (statuses as of 09/29/2023) [facility] Past illness Narrative* Problem Noted Date Diagnosed Date Resolved Date Insulin controlled gestation al diabetes mellitus (GDM) in third trimester 05/09/20222021 Anemia in 05/09/2022 08/02/20 Overview: 05/09/22 - needs repeat CBC in 2-3 weeks - Long Jackson MD with history of infertility 12/09/2021 09/06/2022 [...] 07/18/2019 Overview: 05/21/19 Hgb 11.7 Eleanor Bryant APRN.[employer] 04/12/19 Hgb 10.2 Fe sulfate 325 mg daily on Mondays, Wednesdays and Fridays. Repeat CBC in one month. Eleanor Bryant APRN.[employer] Abnormal glucose in , antepartum 04/10/2019 07/18/2019 Overview: 04/09/19 1 hr GCT 149. 3 hr GTT ordered. 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 Baby A MARIELLA normal with appearance of marginal cord insertion of the dividing membrane. Baby B MARIELLA mildly increased. Follow up US in 3 weeks for growth and MARIELLA. Argenis Dyer APRN.CNM 11/13/18 - twin by IVF - Long Jackson MD Antepartum multigravida of a dvanced maternal age 0311/13/2018 08/02/2022 Overview: 12/09/2021 Patient is 41 years old. Advanced maternal age discussed. Noninvasive and invasive testing options discussed. Patient desires nuchal ultrasound and materniti 21 test. I have given patient contact information to [employer] to check on insurance coverage. TKRN Supervision of other normal 11/13/2018 12/04/2018 Overview: 11/13/18 - need to discuss CF screening - Long Jackson MD Female infertility 08/01/2018 9 Overview: Added automatically from request for surgery [id number] Encounter for supervision of normal first in [...] as of this encounter (statuses as of 11/13/2023) [facility]16[facility] Miscellaneous Notes* Quick Notes - Tahmina Blackwood MD - 04/12/2022 8:53 AM EDT RR- Doing well. No VB/LOF. Good FM. NO ctxs. Mild edema. Plans repeat c/s. F/u in 4 weeks or prn. 28 week lab slip given, will do at [facility]. Tahmina Blackwood MD documented in this encounterWestern [facility]08-[facility]22 Instructions* Patient Instructions* Charis Echavarria Ma - 04/12/2022 8:33 AM EDT SEQUENTIAL SCREENINGS The [facility] offers sequential screenings for women who [...] testing. It will require an appointment withour nuclear plant instrument technician. This is not an ultrasound performed [...] the above symptoms, contact our office at [phone] and ask to speak with anurse. After hours, you can call doctors registry at [phone] OR call [facility] at [phone] ask to have the doctor engine monitor paged. If you consider this an emergency, dial 04-28-3 or go to your nearest emergency department. NEED HELP? Are you dealing with a violent or abusive relationship? Are you a victim of rape or sexual assult? Call [facility] ([place]) 24 hour Crisis Hotline: 714.494.2132 or 992-456-4344. MANUAL Your Guide to a Healthy manual is now on-line. Visit [email or web address] to download your free copy documented in this encounterWestern [facility]07-[facility]22 History of Present illness Narrative* Dori Fitzgerald MD - 03/11/2022 5:20 PM EDT Patient here for routine anatomy scan. See ultrasound report for details. Dori Fitzgerald MD documented in this encounterWestern [facility]07-[facility]22 Miscellaneous Notes* Quick Notes - Angie Padilla APRN.CNM - 03/11/2022 3:20 PM EDT Kirsty Santiago is a 41 year old female [...] needed. Angie Padilla APRN.CNM documented in this encounterWestern [facility] Hospital07-15-2022 Instructions* Patient Instructions* Cande Downey MA - 03/11/2022 2:00 PM EDT SEQUENTIAL SCREENINGS [facility] offers sequential screenings for women who [...] testing. It will require an appointment withour nuclear plant instrument technician. This is not an ultrasound performed [...] the above symptoms, contact our office at [phone] and ask to speak with anurse. After hours, you can call doctors registry at [phone] OR call [facility] at [phone] ask to have the doctor engine monitor paged. If you consider this an emergency, dial 04-28-5 or go to your nearest emergency department. NEED HELP? Are you dealing with a violent or abusive relationship? Are you a victim of rape or sexual assult? Call [facility] ([place]) 24 hour Crisis Hotline: 519.894.2608 or 950-771-2020. MANUAL Your Guide to a Healthy manual is now on-line. Visit [email or web address] to download your free copy documented in this encounterWestern Reserve Hospital07-06-2022 Miscellaneous Notes* Telephone Encounter - KRYS Chandler - 03/02/2022 2:39 PM EDT Ms. Santiago [...] Asked her to call me back at [phone]. Plan on discussing her abnormal quad screen in relation to her normal NIPT. Cande Bond CGC documented in this encounterWestern [facility] Hospital06-23-2022 Miscellaneous Notes* Quick Notes - Angie Padilla APRN.CNM - 02/17/2022 4:45 PM EDT Kirsty Santiago is a 41 year old female who presents at 16w5d Estimated Date of Delivery: 07/31/22 fora routine visit. No movement felt to date. Denies headache, visual changes, chest pain, shortness of breath, vaginal bleeding, leakage of fluid, or dysuria. Feeling well, no complaints. Will have AFP lab drawn at [facility]. Size equal to dates. PTL/ Bleeding precautions reviewed. RTC in 4 weeks foranatomy US and ROB. Angie Padilla APRN.CNM documented in this encounterWestern Reserve Hospital06-23-2022 Instructions* Patient Instructions* Dori Celeste MA - 02/17/2022 4:31 PM EDT SEQUENTIAL SCREENINGS [facility] offers sequential screenings for women who [...] testing. It will require an appointment withour nuclear plant instrument technician. This is not an ultrasound performed [...] the above symptoms, contact our office at [phone] and ask to speak with anurse. After hours, you can call doctors registry at [phone] OR call [facility] at [phone] ask to have the doctor engine monitor paged. If you consider this an emergency, dial 9--1 or go to your nearest emergency department. NEED HELP? Are you dealing with a violent or abusive relationship? Are you a victim of rape or sexual assult? Call [facility] ([place]) 24 hour Crisis Hotline: 467.126.5606 or 630-402-4519. MANUAL Your Guide to a Healthy manual is now on-line. Visit [email or web address] to download your free copy documented in this encounterWestern [facility] Hospital05-31-2022 Miscellaneous Notes* Telephone Encounter - Klarissa Flower RN - 01/25/2022 3:51 PM EDT Called Kirsty Santiago and identified by name and date of . Kirsty Santiago was informed of negative Non-Invasive Testing (NIPT) results for Trisomy 21, Trisomy 18 and Trisomy 13. Patient was also notified of the result of no sex chromosome aneuploidy detected. Patient wishes to know sex, which is reported as: male. Reviewed with patient Kirsty Santiago that NIPT is considered screening and not diagnostic, so this result greatly reduces, but does not eliminate the chance that the fetus could have trisomy 21, trisomy 18, trisomy 13 or sex chromosome aneuploidy. Kirsty Santiago indicated understanding this information. Patient advised to follow up with AFP neural tube defect screening (blood draw) at 16-18 weeks gestation and 18-20 week detailed anatomy ultrasound. Also instructed to follow-up with Primary OB Provider. Klarissa Flower RN documented in this encounterWestern [facility] Hospital05-24-2022 Miscellaneous Notes* Quick Notes - Long Jackson MD - 01/18/2022 4:23 PM EDT KJ - No VB/LOF/ctxs. Denies concerns. A&P: NT with NIPT today Anatomy US ordered MOD - repeat Long Jackson MD documented in this encounterWestern [facility] Hospital05-24-2022 Instructions* Patient Instructions* Christine Higgins Ma - 01/18/2022 3:56 PM EDT SEQUENTIAL SCREENINGS [facility] offers sequential screenings for women who [...] testing. It will require an appointment withour nuclear plant instrument technician. This is not an ultrasound performed [...] the above symptoms, contact our office at [phone] and ask to speak with anurse. After hours, you can call doctors registry at [phone] OR call [facility] at [phone] ask to have the doctor engine monitor paged. If you consider this an emergency, dial 9-3-6 or go to your nearest emergency department. NEED HELP? Are you dealing with a violent or abusive relationship? Are you a victim of rape or sexual assult? Call [facility] ([place]) 24 hour Crisis Hotline: 184.800.1938 or 911-769-4556. MANUAL Your Guide to a Healthy manual is now on-line. 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 Long Jackson MD documented in this encounterWestern [facility] Hospital04-26-2022 Instructions* Patient Instructions* Christine Higgins Ma - 12/21/2021 9:54 AM EDT Please select the following link to access the [facility] Your Guide to a Healthy . [email or web address] documented in this encounterWestern Reserve Hospital04-14-2022 Miscellaneous Notes* Quick Notes - Melina [...] I have given patient contact information to [employer] to check on insurance coverage. Patient has a history of gestational diabetes with her last . Last hemoglobin A1c was done June 2021. Patient will plan on early scree rosalinda. Patient has a history of 2 C-sections. She desires a repeat . Patient has a history of macrosomia in prior . Patient declines tubal ligation.Melina Macdonald RN documented in this encounterWestern Reserve Hospital04-14-2022 History of Present illness Narrative* Melina [...] Living: None, Comments: None documented in this encounterWestern Reserve Hospital04-04-2022 Miscellaneous Notes* Telephone Encounter - Comfort [...] history. Danya Rueda RN documented in this encounterWestern [facility] Hospital10-26-2021 History of Past illness Narrative* Problem Noted Date Resolved Date History of gestational diabetes 06/22/2021 12/21/2021 Polyhydramnios in third trimester 04/24/2019 07/18/2019 Diet controlled gestational diabetes mellitus (GDM) in third trimester 04/16/2019 07/18/2019 Antepartum anemia 04/10/2019 07/18/2019 Overview: 05/21/19 Hgb 11.7 Eleanor Bryant APRN.[employer] 04/12/19 Hgb 10.2 Fe sulfate 325 mg daily on Mondays, Wednesdays and Fridays. Repeat CBC in one month. Eleanor Bryant APRN.[employer] Abnormal glucose in , antepartum 201807/18/2019 Overview: 04/09/19 1 hr GCT 149. 3 hr GTT ordered. 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 Baby A MARIELLA normal with appearance of marginal cord insertion of the dividing membrane. Baby B MARIELLA mildly increased. Follow up US in 3 weeks for growth and MARIELAL. Argenis Dyer APRN.CNM 11/13/18 - twin by IVF - Long Jackson MD Supervision of other normal 11/13/2018 12/04/2018 Overview: 11/13/18 - need to discuss CF screening - Long Jackson MD Female infertility 08/01/2018 11/13/2018 Overview: Added automatically from request for surgery [id number] Encounter for supervision of normal first in [...] of this encounter (statuses as of 12/21/2021) [facility] History of Past illness Narrative* Problem Noted Date Resolved Date History of gestational diabetes 06/22/2021 12/21/2021 Polyhydramnios in third trimester 04/24/2019 07/18/2019 Diet controlled gestational diabetes mellitus (GDM) in third trimester 04/16/2019 07/18/2019 Antepartum anemia 04/10/2019 07/18/2019 Overview: 05/21/19 Hgb 11.7 Eleanor Bryant APRN.[employer] 04/12/19 Hgb 10.2 Fe sulfate 325 mg daily on Mondays, Wednesdays and Fridays. Repeat CBC in one month. Eleanor Bryant APRN.[employer] Abnormal glucose in , antepartum 201807/18/2019 Overview: 04/09/19 1 hr GCT 149. 3 hr GTT ordered. 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 Baby A MARIELLA normal with appearance of marginal cord insertion of the dividing membrane. Baby B MARIELLA mildly increased. Follow up US in 3 weeks for growth and MARIELLA. Argenis Dyer APRN.CNM 11/13/18 - twin by IVF - Long Jackson MD Supervision of other normal 11/13/2018 12/04/2018 Overview: 11/13/18 - need to discuss CF screening - Long Jackson MD Female infertility 08/01/2018 11/13/2018 Overview: Added automatically from request for surgery [id number] Encounter for supervision of normal first in [...] of this encounter (statuses as of 12/23/2021) [facility] of Past illness Narrative* Problem Noted Date Resolved Date History of gestational diabetes 06/22/2021 12/21/2021 Polyhydramnios in third trimester 04/24/2019 07/18/2019 Diet controlled gestational diabetes mellitus (GDM) in third trimester 04/16/2019 07/18/2019 Antepartum anemia 04/10/2019 07/18/2019 Overview: 05/21/19 Hgb 11.7 Eleanor Bryant APRN.[employer] 04/12/19 Hgb 10.2 Fe sulfate 325 mg daily on Mondays, Wednesdays and Fridays. Repeat CBC in one month. Eleanor Bryant APRN.[employer] Abnormal glucose in , antepartum 201807/18/2019 Overview: 04/09/19 1 hr GCT 149. 3 hr GTT ordered. 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 Baby A MARIELLA normal with appearance of marginal cord insertion of the dividing membrane. Baby B MARIELLA mildly increased. Follow up US in 3 weeks for growth and MARIELLA. Argenis Dyer APRN.CNM 11/13/18 - twin by IVF - Long Jackson MD Supervision of other normal 11/13/2018 12/04/2018 Overview: 11/13/18 - need to discuss CF screening - Long Jacskon MD Female infertility 08/01/2018 11/13/2018 Overview: Added automatically from request for surgery [id number] Encounter for supervision of normal first in [...] of this encounter (statuses as of 01/18/2022) [facility] of Past illness Narrative* Problem Noted Date Resolved Date History of gestational diabetes 06/22/2021 12/21/2021 Polyhydramnios in third trimester 04/24/2019 07/18/2019 Diet controlled gestational diabetes mellitus (GDM) in third trimester 04/16/2019 07/18/2019 Antepartum anemia 04/10/2019 07/18/2019 Overview: 05/21/19 Hgb 11.7 Eleanor Bryant APRN.[employer] 04/12/19 Hgb 10.2 Fe sulfate 325 mg daily on Mondays, Wednesdays and Fridays. Repeat CBC in one month. Eleanor Bryant APRN.[employer] Abnormal glucose in , antepartum 201807/18/2019 Overview: 04/09/19 1 hr GCT 149. 3 hr GTT ordered. 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 Baby A MARIELLA normal with appearance of marginal cord insertion of the dividing membrane. Baby B MARIELLA mildly increased. Follow up US in 3 weeks for growth and MARIELLA. Argenis Dyer APRN.CNM 11/13/18 - twin by IVF - Long Jackson MD Supervision of other normal 11/13/2018 12/04/2018 Overview: 11/13/18 - need to discuss CF screening - Long Jackson MD Female infertility 08/01/2018 11/13/2018 Overview: Added automatically from request for surgery [id number] Encounter for supervision of normal first in [...] of this encounter (statuses as of 01/18/2022) [facility] of Past illness Narrative* Problem Noted Date Resolved Date History of gestational diabetes 06/22/2021 12/21/2021 Polyhydramnios in third trimester 04/24/2019 07/18/2019 Diet controlled gestational diabetes mellitus (GDM) in third trimester 04/16/2019 07/18/2019 Antepartum anemia 04/10/2019 07/18/2019 Overview: 05/21/19 Hgb 11.7 Eleanor Bryant APRN.[employer] 04/12/19 Hgb 10.2 Fe sulfate 325 mg daily on Mondays, Wednesdays and Fridays. Repeat CBC in one month. Eleanor Bryant APRN.ANGELINA Abnormal glucose in , antepartum 201807/18/2019 Overview: 04/09/19 1 hr GCT 149. 3 hr GTT ordered. 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 Baby A MARIELLA normal with appearance of marginal cord insertion of the dividing membrane. Baby B MARIELLA mildly increased. Follow up US in 3 weeks for growth and MARIELLA. Argenis Dyer APRN.CN 11/13/18 - twin by IVF - Long Jackson MD Supervision of other normal 11/13/2018 12/04/2018 Overview: 11/13/18 - need to discuss CF screening - Long Jackson MD Female infertility 08/01/2018 11/13/2018 Overview: Added automatically from request for surgery [id number] Encounter for supervision of normal first in [...] of this encounter (statuses as of 01/25/2022) [facility] Past illness Narrative* Problem Noted Date Resolved Date History of gestational diabetes 06/22/2021 12/21/2021 Polyhydramnios in third trimester 04/24/2019 07/18/2019 Diet controlled gestational diabetes mellitus (GDM) in third trimester 04/16/2019 07/18/2019 Antepartum anemia 04/10/2019 07/18/2019 Overview: 05/21/19 Hgb 11.7 Eleanor Bryant APRN.[employer] 04/12/19 Hgb 10.2 Fe sulfate 325 mg daily on Mondays, Wednesdays and Fridays. Repeat CBC in one month. Eleanor Bryant APRN.[employer] Abnormal glucose in , antepartum 201807/18/2019 Overview: 04/09/19 1 hr GCT 149. 3 hr GTT ordered. 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 Baby A MARIELLA normal with appearance of marginal cord insertion of the dividing membrane. Baby B MARIELLA mildly increased. Follow up US in 3 weeks for growth and MARIELLA. Argenis Dyer APRN.CNM 11/13/18 - twin by IVF - Long Jackson MD Supervision of other normal 11/13/2018 12/04/2018 Overview: 11/13/18 - need to discuss CF screening - Long Jackson MD Female infertility 08/01/2018 11/13/2018 Overview: Added automatically from request for surgery [id number] Encounter for supervision of normal first in [...] of this encounter (statuses as of 02/18/2022) [facility] of Past illness Narrative* Problem Noted Date Resolved Date History of gestational diabetes 06/22/2021 12/21/2021 Polyhydramnios in third trimester 04/24/2019 07/18/2019 Diet controlled gestational diabetes mellitus (GDM) in third trimester 04/16/2019 07/18/2019 Antepartum anemia 04/10/2019 07/18/2019 Overview: 05/21/19 Hgb 11.7 Eleanor Bryant APRN.[employer] 04/12/19 Hgb 10.2 Fe sulfate 325 mg daily on Mondays, Wednesdays and Fridays. Repeat CBC in one month. Eleanor Bryant APRN.ANGELINA Abnormal glucose in , antepartum 201807/18/2019 Overview: 04/09/19 1 hr GCT 149. 3 hr GTT ordered. 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 Baby A MARIELLA normal with appearance of marginal cord insertion of the dividing membrane. Baby B MARIELLA mildly increased. Follow up US in 3 weeks for growth and MARIELLA. Argenis Dyer APRN.CNM 11/13/18 - twin by IVF - Long aJckson MD Supervision of other normal 11/13/2018 12/04/2018 Overview: 11/13/18 - need to discuss CF screening - Long Jackson MD Female infertility 08/01/2018 11/13/2018 Overview: Added automatically from request for surgery [id number] Encounter for supervision of normal first in [...] of this encounter (statuses as of 03/02/2022) [facility] of Past illness Narrative* Problem [...] Repeat CBC in one month. Eleanor Bryant APRN.[employer] Abnormal glucose in , antepartum 201807/18/2019 Overview: 04/09/19 1 hr GCT 149. 3 hr GTT ordered. 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 Baby A MARIELLA normal with appearance of marginal cord insertion of the dividing membrane. Baby B MARIELLA mildly increased. Follow up US in 3 weeks for growth and MARIELLA. Argenis Dyer APRN.CNM 11/13/18 - twin by IVF - Long Jackson MD Supervision of other normal 11/13/2018 12/04/2018 Overview: 11/13/18 - need to discuss CF screening - Long Jackson MD Female infertility 08/01/2018 11/13/2018 Overview: Added automatically from request for surgery [id number] Encounter for supervision of normal first in [...] of this encounter (statuses as of 03/11/2022) [facility] of Past illness Narrative* Problem [...] - baby A, repeat US scheduled - Long Jackson MD Previous section 11/13/20182018 Overview: 11/13/18 - plans for repeat section - Long Jackson MD Dichorionic diamniotic twin , antepartu m 11/13/2018 07/18/2019 Overview: 04/25/19 - start NST's at 32-34 weeks per - Long Jackson MD 03/28/19-[facility] DI/DI twins. Baby A MARIELLA normal with appearance of marginal cord insertion of the dividing membrane. Baby B MARIELLA mildly increased. Follow up US in 3 weeks for growth and MARIELLA. Argenis Dyer APRN.LISAM 11/13/18 - twin by IVF - Long Jackson MD Supervision of other normal 11/13/2018 12/04/2018 Overview: 11/13/18 - need to discuss CF screening - Long Jackson MD Female infertility 08/01/2018 11/13/2018 Overview: Added automatically from request for surgery [id number] Encounter for supervision of normal first in [...] of this encounter (statuses as of 03/11/2022) [facility]10-26-2021 History of Past illness Narrative* Problem Noted Date Resolved Date History of gestational diabetes 06/22/2021 12/21/2021 Polyhydramnios in third trimester 04/24/2019 07/18/2019 Diet controlled gestational diabetes mellitus (GDM) in third trimester 04/16/2019 07/18/2019 Antepartum anemia 04/10/2019 07/18/2019 Overview: 05/21/19 Hgb 11.7 Eleanor Bryant APRN.[employer] 04/12/19 Hgb 10.2 Fe sulfate 325 mg daily on Mondays, Wednesdays and Fridays. Repeat CBC in one month. Eleanor Bryant APRN.[employer] Abnormal glucose in , antepartum 201807/18/2019 Overview: 04/09/19 1 hr GCT 149. 3 hr GTT ordered. 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 Baby A MARIELLA normal with appearance of marginal cord insertion of the dividing membrane. Baby B MARIELLA mildly increased. Follow up US in 3 weeks for growth and MARIELLA. Argenis Dyer APRN.CNM 11/13/18 - twin by IVF - Long Jackson MD Supervision of other normal 11/13/2018 12/04/2018 Overview: 11/13/18 - need to discuss CF screening - Long Jackson MD Female infertility 08/01/2018 11/13/2018 Overview: Added automatically from request for surgery [id number] Encounter for supervision of normal first in [...] of this encounter (statuses as of 04/12/2022) [facility] History of Past illness Narrative* Problem Noted Date Resolved Date History of gestational diabetes 06/22/2021 12/21/2021 Polyhydramnios in third trimester 04/24/2019 07/18/2019 Diet controlled gestational diabetes mellitus (GDM) in third trimester 04/16/2019 07/18/2019 Antepartum anemia 04/10/2019 07/18/2019 Overview: 05/21/19 Hgb 11.7 Eleanor Bryant APRN.[employer] 04/12/19 Hgb 10.2 Fe sulfate 325 mg daily on Mondays, Wednesdays and Fridays. Repeat CBC in one month. Eleanor Bryant APRN.[employer] Abnormal glucose in , antepartum 201807/18/2019 Overview: 04/09/19 1 hr GCT 149. 3 hr GTT ordered. 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 Baby A MARIELLA normal with appearance of marginal cord insertion of the dividing membrane. Baby B MARIELLA mildly increased. Follow up US in 3 weeks for growth and MARIELLA. Argenis Dyer APRN.CNM 11/13/18 - twin by IVF - Long Jackson MD Supervision of other normal 11/13/2018 12/04/2018 Overview: 11/13/18 - need to discuss CF screening - Long Jackson MD Female infertility 08/01/2018 11/13/2018 Overview: Added automatically from request for surgery [id number] Encounter for supervision of normal first in [...] of this encounter (statuses as of 05/09/2022) [facility] History of Past illness Narrative* Problem [...] - baby A, repeat US scheduled - Long Jackson MD Previous section 11/13/20182018 Overview: 11/13/18 - plans for repeat section - Long Jackson MD Dichorionic diamniotic twin , antepartu m 11/13/2018 07/18/2019 Overview: 04/25/19 - start NST's at 32-34 weeks per - Long Jackson MD 03/28/19-[facility] DI/DI twins. Baby A AMRIELLA normal with appearance of marginal cord insertion of the dividing membrane. Baby B MARIELLA mildly increased. Follow up US in 3 weeks for growth and MARIELLA. Argenis Dyer APRN.CNM 11/13/18 - twin by IVF - Long Jackson MD Supervision of other normal 11/13/2018 12/04/2018 Overview: 11/13/18 - need to discuss CF screening - Long Jackson MD Female infertility 08/01/2018 11/13/2018 Overview: Added automatically from request for surgery [id number] Encounter for supervision of normal first in [...] of this encounter (statuses as of 05/12/2022) [facility] History of Past illness Narrative* Problem Noted Date Resolved Date History of gestational diabetes 06/22/2021 12/21/2021 Polyhydramnios in third trimester 04/24/2019 07/18/2019 Diet controlled gestational diabetes mellitus (GDM) in third trimester 04/16/2019 07/18/2019 Antepartum anemia 04/10/2019 07/18/2019 Overview: 05/21/19 Hgb 11.7 Eleanor Bryant APRN.[employer] 04/12/19 Hgb 10.2 Fe sulfate 325 mg daily on Mondays, Wednesdays and Fridays. Repeat CBC in one month. Eleanor Bryant APRN.[employer] Abnormal glucose in , antepartum 201807/18/2019 Overview: 04/09/19 1 hr GCT 149. 3 hr GTT ordered. 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 Baby A MARIELLA normal with appearance of marginal cord insertion of the dividing membrane. Baby B MARIELLA mildly increased. Follow up US in 3 weeks for growth and MARIELLA. Argenis Dyer APRN.LISAM 11/13/18 - twin by IVF - Long Jackson MD Supervision of other normal 11/13/2018 12/04/2018 Overview: 11/13/18 - need to discuss CF screening - Long Jackson MD Female infertility 08/01/2018 11/13/2018 Overview: Added automatically from request for surgery [id number] Encounter for supervision of normal first in [...] of this encounter (statuses as of 05/26/2022) [facility] History of Past illness Narrative* Problem [...] Repeat CBC in one month. Eleanor Bryant APRN.[employer] Abnormal glucose in , antepartum 201807/18/2019 Overview: 04/09/19 1 hr GCT 149. 3 hr GTT ordered. 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 Baby A MARIELLA normal with appearance of marginal cord insertion of the dividing membrane. Baby B MARIELLA mildly increased. Follow up US in 3 weeks for growth and MARIELLA. Argenis Dyer APRN.CNM 11/13/18 - twin by IVF - Long Jackson MD Supervision of other normal 11/13/2018 12/04/2018 Overview: 11/13/18 - need to discuss CF screening - Long Jackson MD Female infertility 08/01/2018 11/13/2018 Overview: Added automatically from request for surgery [id number] Encounter for supervision of normal first in [...] of this encounter (statuses as of 06/02/2022) [facility] History of Past illness Narrative* Problem Noted Date Resolved Date History of gestational diabetes 06/22/2021 12/21/2021 Polyhydramnios in third trimester 04/24/2019 07/18/2019 Diet controlled gestational diabetes mellitus (GDM) in third trimester 04/16/2019 07/18/2019 Antepartum anemia 04/10/2019 07/18/2019 Overview: 05/21/19 Hgb 11.7 Eleanor Bryant APRN.[employer] 04/12/19 Hgb 10.2 Fe sulfate 325 mg daily on Mondays, Wednesdays and Fridays. Repeat CBC in one month. Eleanor Bryant APRN.[employer] Abnormal glucose in , antepartum 201807/18/2019 Overview: 04/09/19 1 hr GCT 149. 3 hr GTT ordered. 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 Baby A MARIELLA normal with appearance of marginal cord insertion of the dividing membrane. Baby B MARIELLA mildly increased. Follow up US in 3 weeks for growth and MARIELLA. Argenis Dyer APRN.CNM 11/13/18 - twin by IVF - Long Jackson MD Supervision of other normal 11/13/2018 12/04/2018 Overview: 11/13/18 - need to discuss CF screening - Long Jackson MD Female infertility 08/01/2018 11/13/2018 Overview: Added automatically from request for surgery [id number] Encounter for supervision of normal first in [...] of this encounter (statuses as of 06/02/2022) [facility] History of Past illness Narrative* Problem Noted Date Resolved Date History of gestational diabetes 06/22/2021 12/21/2021 Polyhydramnios in third trimester 04/24/2019 07/18/2019 Diet controlled gestational diabetes mellitus (GDM) in third trimester 04/16/2019 07/18/2019 Antepartum anemia 04/10/2019 07/18/2019 Overview: 05/21/19 Hgb 11.7 Eleanor Bryant APRN.[employer] 04/12/19 Hgb 10.2 Fe sulfate 325 mg daily on Mondays, Wednesdays and Fridays. Repeat CBC in one month. Eleanor Bryant APRN.[employer] Abnormal glucose in , antepartum 201807/18/2019 Overview: 04/09/19 1 hr GCT 149. 3 hr GTT ordered. 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 Baby A MARIELLA normal with appearance of marginal cord insertion of the dividing membrane. Baby B MARIELLA mildly increased. Follow up US in 3 weeks for growth and MARIELLA. Argenis Dyer APRN.CNM 11/13/18 - twin by IVF - Long Jackson MD Supervision of other normal 11/13/2018 12/04/2018 Overview: 11/13/18 - need to discuss CF screening - Long Jackson MD Female infertility 08/01/2018 11/13/2018 Overview: Added automatically from request for surgery [id number] Encounter for supervision of normal first in [...] of this encounter (statuses as of 06/10/2022) [facility] History of Past illness Narrative* Problem Noted Date Resolved Date History of gestational diabetes 06/22/2021 12/21/2021 Polyhydramnios in third trimester 04/24/2019 07/18/2019 Diet controlled gestational diabetes mellitus (GDM) in third trimester 04/16/2019 07/18/2019 Antepartum anemia 04/10/2019 07/18/2019 Overview: 05/21/19 Hgb 11.7 Eleanor Bryant APRN.[employer] 04/12/19 Hgb 10.2 Fe sulfate 325 mg daily on Mondays, Wednesdays and Fridays. Repeat CBC in one month. Eleanor Bryant APRN.[employer] Abnormal glucose in , antepartum 201807/18/2019 Overview: 04/09/19 1 hr GCT 149. 3 hr GTT ordered. 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 Baby A MARIELLA normal with appearance of marginal cord insertion of the dividing membrane. Baby B MARIELLA mildly increased. Follow up US in 3 weeks for growth and MARIELLA. Argenis Dyer APRN.CNM 11/13/18 - twin by IVF - Long Jackson MD Supervision of other normal 11/13/2018 12/04/2018 Overview: 11/13/18 - need to discuss CF screening - Long Jackson MD Female infertility 08/01/2018 11/13/2018 Overview: Added automatically from request for surgery [id number] Encounter for supervision of normal first in [...] of this encounter (statuses as of 06/10/2022) [facility] History of Past illness Narrative* Problem Noted Date Resolved Date History of gestational diabetes 06/22/2021 12/21/2021 Polyhydramnios in third trimester 04/24/2019 07/18/2019 Diet controlled gestational diabetes mellitus (GDM) in third trimester 04/16/2019 07/18/2019 Antepartum anemia 04/10/2019 07/18/2019 Overview: 05/21/19 Hgb 11.7 Eleanor Bryant APRN.[employer] 04/12/19 Hgb 10.2 Fe sulfate 325 mg daily on Mondays, Wednesdays and Fridays. Repeat CBC in one month. Eleanor Bryant APRN.[employer] Abnormal glucose in , antepartum 201807/18/2019 Overview: 04/09/19 1 hr GCT 149. 3 hr GTT ordered. 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 Baby A MARIELLA normal with appearance of marginal cord insertion of the dividing membrane. Baby B MARIELLA mildly increased. Follow up US in 3 weeks for growth and MARIELLA. Argenis Dyer APRN.CNM 11/13/18 - twin by IVF - Long Jackson MD Supervision of other normal 11/13/2018 12/04/2018 Overview: 11/13/18 - need to discuss CF screening - Long Jackson MD Female infertility 08/01/2018 11/13/2018 Overview: Added automatically from request for surgery [id number] Encounter for supervision of normal first in [...] of this encounter (statuses as of 06/13/2022) [facility] History of Past illness Narrative* Problem Noted Date Resolved Date History of gestational diabetes 06/22/2021 12/21/2021 Polyhydramnios in third trimester 04/24/2019 07/18/2019 Diet controlled gestational diabetes mellitus (GDM) in third trimester 04/16/2019 07/18/2019 Antepartum anemia 04/10/2019 07/18/2019 Overview: 05/21/19 Hgb 11.7 Eleanor Bryant APRN.[employer] 04/12/19 Hgb 10.2 Fe sulfate 325 mg daily on Mondays, Wednesdays and Fridays. Repeat CBC in one month. Eleanor Bryant APRN.[employer] Abnormal glucose in , antepartum 201807/18/2019 Overview: 04/09/19 1 hr GCT 149. 3 hr GTT ordered. 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 Baby A MARIELLA normal with appearance of marginal cord insertion of the dividing membrane. Baby B MARIELLA mildly increased. Follow up US in 3 weeks for growth and MARIELLA. Argenis Dyer APRN.CN 11/13/18 - twin by IVF - Long Jackson MD Supervision of other normal 11/13/2018 12/04/2018 Overview: 11/13/18 - need to discuss CF screening - Long Jackson MD Female infertility 08/01/2018 11/13/2018 Overview: Added automatically from request for surgery [id number] Encounter for supervision of normal first in [...] of this encounter (statuses as of 06/13/2022) [facility] History of Past illness Narrative* Problem Noted Date Resolved Date History of gestational diabetes 06/22/2021 12/21/2021 Polyhydramnios in third trimester 04/24/2019 07/18/2019 Diet controlled gestational diabetes mellitus (GDM) in third trimester 04/16/2019 07/18/2019 Antepartum anemia 04/10/2019 07/18/2019 Overview: 05/21/19 Hgb 11.7 Eleanor Bryant APRN.[employer] 04/12/19 Hgb 10.2 Fe sulfate 325 mg daily on Mondays, Wednesdays and Fridays. Repeat CBC in one month. Eleanor Bryant APRN.ANGELINA Abnormal glucose in , antepartum 201807/18/2019 Overview: 04/09/19 1 hr GCT 149. 3 hr GTT ordered. 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 Baby A MARIELLA normal with appearance of marginal cord insertion of the dividing membrane. Baby B MARIELLA mildly increased. Follow up US in 3 weeks for growth and MARIELLA. Argenis Dyer APRN.CNM 11/13/18 - twin by IVF - Long Jackson MD Supervision of other normal 11/13/2018 12/04/2018 Overview: 11/13/18 - need to discuss CF screening - Long Jackson MD Female infertility 08/01/2018 11/13/2018 Overview: Added automatically from request for surgery [id number] Encounter for supervision of normal first in [...] of this encounter (statuses as of 06/23/2022) [facility] History of Past illness Narrative* Problem Noted Date Resolved Date History of gestational diabetes 06/22/2021 12/21/2021 Polyhydramnios in third trimester 04/24/2019 07/18/2019 Diet controlled gestational diabetes mellitus (GDM) in third trimester 04/16/2019 07/18/2019 Antepartum anemia 04/10/2019 07/18/2019 Overview: 05/21/19 Hgb 11.7 Eleanor Bryant APRN.[employer] 04/12/19 Hgb 10.2 Fe sulfate 325 mg daily on Mondays, Wednesdays and Fridays. Repeat CBC in one month. Eleanor Bryant APRN.[employer] Abnormal glucose in , antepartum 201807/18/2019 Overview: 04/09/19 1 hr GCT 149. 3 hr GTT ordered. 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 Baby A MARIELLA normal with appearance of marginal cord insertion of the dividing membrane. Baby B MARIELLA mildly increased. Follow up US in 3 weeks for growth and MARIELLA. Argenis Dyer APRN.CNM 11/13/18 - twin by IVF - Long Jackson MD Supervision of other normal 11/13/2018 12/04/2018 Overview: 11/13/18 - need to discuss CF screening - Long Jackson MD Female infertility 08/01/2018 11/13/2018 Overview: Added automatically from request for surgery [id number] Encounter for supervision of normal first in [...] of this encounter (statuses as of 06/27/2022) [facility] History of Past illness Narrative* Problem [...] - baby A, repeat US scheduled - Long Jackson MD Previous section 11/13/20182018 Overview: 11/13/18 - plans for repeat section - Long Jackson MD Dichorionic diamniotic twin , antepartu m 11/13/2018 07/18/2019 Overview: 04/25/19 - start NST's at 32-34 weeks per - Long Jackson MD 03/28/19-[facility] DI/DI twins. Baby A MARIELLA normal with appearance of marginal cord insertion of the dividing membrane. Baby B MARIELLA mildly increased. Follow up US in 3 weeks for growth and MARIELLA. Argenis Dyer APRN.CNM 11/13/18 - twin by IVF - Long Jackson MD Supervision of other normal 11/13/2018 12/04/2018 Overview: 11/13/18 - need to discuss CF screening - Long Jackson MD Female infertility 08/01/2018 11/13/2018 Overview: Added automatically from request for surgery [id number] Encounter for supervision of normal first in [...] of this encounter (statuses as of 07/06/2022) [facility] History of Past illness Narrative* Problem Noted Date Resolved Date History of gestational diabetes 06/22/2021 12/21/2021 Polyhydramnios in third trimester 04/24/2019 07/18/2019 Diet controlled gestational diabetes mellitus (GDM) in third trimester 04/16/2019 07/18/2019 Antepartum anemia 04/10/2019 07/18/2019 Overview: 05/21/19 Hgb 11.7 Eleanor Bryant APRN.[employer] 04/12/19 Hgb 10.2 Fe sulfate 325 mg daily on Mondays, Wednesdays and Fridays. Repeat CBC in one month. Eleanor Bryant APRN.[employer] Abnormal glucose in , antepartum 201807/18/2019 Overview: 04/09/19 1 hr GCT 149. 3 hr GTT ordered. 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 Baby A MARIELLA normal with appearance of marginal cord insertion of the dividing membrane. Baby B MARIELLA mildly increased. Follow up US in 3 weeks for growth and MARIELLA. Argenis Dyer APRN.CNM 11/13/18 - twin by IVF - Long Jackson MD Supervision of other normal 11/13/2018 12/04/2018 Overview: 11/13/18 - need to discuss CF screening - Long Jackson MD Female infertility 08/01/2018 11/13/2018 Overview: Added automatically from request for surgery [id number] Encounter for supervision of normal first in [...] of this encounter (statuses as of 07/06/2022) [facility] History of Past illness Narrative* Problem Noted Date Resolved Date History of gestational diabetes 06/22/2021 12/21/2021 Polyhydramnios in third trimester 04/24/2019 07/18/2019 Diet controlled gestational diabetes mellitus (GDM) in third trimester 04/16/2019 07/18/2019 Antepartum anemia 04/10/2019 07/18/2019 Overview: 05/21/19 Hgb 11.7 Eleanor Bryant APRN.[employer] 04/12/19 Hgb 10.2 Fe sulfate 325 mg daily on Mondays, Wednesdays and Fridays. Repeat CBC in one month. Eleanor Bryant APRN.[employer] Abnormal glucose in , antepartum 201807/18/2019 Overview: 04/09/19 1 hr GCT 149. 3 hr GTT ordered. 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 Baby A MARIELLA normal with appearance of marginal cord insertion of the dividing membrane. Baby B MARIELLA mildly increased. Follow up US in 3 weeks for growth and MARIELLA. Argenis Dyer APRN.CNM 11/13/18 - twin by IVF - Long Jackson MD Supervision of other normal 11/13/2018 12/04/2018 Overview: 11/13/18 - need to discuss CF screening - Long Jackson MD Female infertility 08/01/2018 11/13/2018 Overview: Added automatically from request for surgery [id number] Encounter for supervision of normal first in [...] of this encounter (statuses as of 07/11/2022) [facility] History of Past illness Narrative* Problem [...] Repeat CBC in one month. Eleanor Bryant APRN.[employer] Abnormal glucose in , antepartum 201807/18/2019 Overview: 04/09/19 1 hr GCT 149. 3 hr GTT ordered. 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 Baby A MARIELLA normal with appearance of marginal cord insertion of the dividing membrane. Baby B MARIELLA mildly increased. Follow up US in 3 weeks for growth and MARIELLA. Argenis Dyer APRN.CNM 11/13/18 - twin by IVF - Long Jackson MD Supervision of other normal 11/13/2018 12/04/2018 Overview: 11/13/18 - need to discuss CF screening - Long Jackson MD Female infertility 08/01/2018 11/13/2018 Overview: Added automatically from request for surgery [id number] Encounter for supervision of normal first in [...] of this encounter (statuses as of 07/15/2022) [facility] History of Past illness Narrative* Problem Noted Date Resolved Date History of gestational diabetes 06/22/2021 12/21/2021 Polyhydramnios in third trimester 04/24/2019 07/18/2019 Diet controlled gestational diabetes mellitus (GDM) in third trimester 04/16/2019 07/18/2019 Antepartum anemia 04/10/2019 07/18/2019 Overview: 05/21/19 Hgb 11.7 Eleanor Bryant APRN.[employer] 04/12/19 Hgb 10.2 Fe sulfate 325 mg daily on Mondays, Wednesdays and Fridays. Repeat CBC in one month. Eleanor Bryant APRN.[employer] Abnormal glucose in , antepartum 201807/18/2019 Overview: 04/09/19 1 hr GCT 149. 3 hr GTT ordered. 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 Baby A MARIELLA normal with appearance of marginal cord insertion of the dividing membrane. Baby B MARIELLA mildly increased. Follow up US in 3 weeks for growth and MARIELLA. Argenis Dyer APRN.CNM 11/13/18 - twin by IVF - Long Jackson MD Supervision of other normal 11/13/2018 12/04/2018 Overview: 11/13/18 - need to discuss CF screening - Long Jackson MD Female infertility 08/01/2018 11/13/2018 Overview: Added automatically from request for surgery [id number] Encounter for supervision of normal first in [...] of this encounter (statuses as of 07/22/2022) [facility] History of Past illness Narrative* Problem Noted Date Resolved Date History of gestational diabetes 06/22/2021 12/21/2021 Polyhydramnios in third trimester 04/24/2019 07/18/2019 Diet controlled gestational diabetes mellitus (GDM) in third trimester 04/16/2019 07/18/2019 Antepartum anemia 04/10/2019 07/18/2019 Overview: 05/21/19 Hgb 11.7 Eleanor Bryant APRN.[employer] 04/12/19 Hgb 10.2 Fe sulfate 325 mg daily on Mondays, Wednesdays and Fridays. Repeat CBC in one month. Eleanor Bryant APRN.[employer] Abnormal glucose in , antepartum 201807/18/2019 Overview: 04/09/19 1 hr GCT 149. 3 hr GTT ordered. 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 Baby A MARIELLA normal with appearance of marginal cord insertion of the dividing membrane. Baby B MARIELLA mildly increased. Follow up US in 3 weeks for growth and MARIELLA. Argenis Dyer APRN.CN 11/13/18 - twin by IVF - Long Jackson MD Supervision of other normal 11/13/2018 12/04/2018 Overview: 11/13/18 - need to discuss CF screening - Long Jackson MD Female infertility 08/01/2018 11/13/2018 Overview: Added automatically from request for surgery [id number] Encounter for supervision of normal first in [...] of this encounter (statuses as of 07/26/2022) [facility] History of Past illness Narrative* Problem Noted Date Resolved Date History of gestational diabetes 06/22/2021 12/21/2021 Polyhydramnios in third trimester 04/24/2019 07/18/2019 Diet controlled gestational diabetes mellitus (GDM) in third trimester 04/16/2019 07/18/2019 Antepartum anemia 04/10/2019 07/18/2019 Overview: 05/21/19 Hgb 11.7 Eleanor Bryant APRN.[employer] 04/12/19 Hgb 10.2 Fe sulfate 325 mg daily on Mondays, Wednesdays and Fridays. Repeat CBC in one month. Eleanor Byrant APRN.[employer] Abnormal glucose in , antepartum 201807/18/2019 Overview: 04/09/19 1 hr GCT 149. 3 hr GTT ordered. 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 Baby A MARIELLA normal with appearance of marginal cord insertion of the dividing membrane. Baby B MARIELLA mildly increased. Follow up US in 3 weeks for growth and MARIELLA. Argenis Dyer APRN.LISAM 11/13/18 - twin by IVF - Long Jackson MD Supervision of other normal 11/13/2018 12/04/2018 Overview: 11/13/18 - need to discuss CF screening - Long Jackson MD Female infertility 08/01/2018 11/13/2018 Overview: Added automatically from request for surgery [id number] Encounter for supervision of normal first in [...] of this encounter (statuses as of 07/28/2022) [facility] History of Past illness Narrative* Problem Noted Date Resolved Date History of gestational diabetes 06/22/2021 12/21/2021 Polyhydramnios in third trimester 04/24/2019 07/18/2019 Diet controlled gestational diabetes mellitus (GDM) in third trimester 04/16/2019 07/18/2019 Antepartum anemia 04/10/2019 07/18/2019 Overview: 05/21/19 Hgb 11.7 Eleanor Bryant APRN.[employer] 04/12/19 Hgb 10.2 Fe sulfate 325 mg daily on Mondays, Wednesdays and Fridays. Repeat CBC in one month. Eleanor Bryant APRN.[employer] Abnormal glucose in , antepartum 201807/18/2019 Overview: 04/09/19 1 hr GCT 149. 3 hr GTT ordered. 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 Baby A MARIELLA normal with appearance of marginal cord insertion of the dividing membrane. Baby B MARIELLA mildly increased. Follow up US in 3 weeks for growth and MARIELLA. Argenis Dyer APRN.CNM 11/13/18 - twin by IVF - Long Jackson MD Supervision of other normal 11/13/2018 12/04/2018 Overview: 11/13/18 - need to discuss CF screening - Long Jackson MD Female infertility 08/01/2018 11/13/2018 Overview: Added automatically from request for surgery [id number] Encounter for supervision of normal first in [...] of this encounter (statuses as of 08/01/2022) [facility] History of Past illness Narrative* Problem Noted Date Resolved Date Polyhydramnios in third trimester 04/24/2019 07/18/2019 Diet controlled gestational diabetes mellitus (GDM) in third trimester 04/16/2019 07/18/2019 Antepartum anemia 04/10/2019 07/18/2019 Overview: 05/21/19 Hgb 11.7 Eleanor Bryant APRN.[employer] 04/12/19 Hgb 10.2 Fe sulfate 325 mg daily on Mondays, Wednesdays and Fridays. Repeat CBC in one month. Eleanor Bryant APRN.[employer] Abnormal glucose in , antepartum 201807/18/2019 Overview: 04/09/19 1 hr GCT 149. 3 hr GTT ordered. 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 Baby A MARIELLA normal with appearance of marginal cord insertion of the dividing membrane. Baby B MARIELLA mildly increased. Follow up US in 3 weeks for growth and MARIELLA. Argenis Dyer APRN.LISAM 11/13/18 - twin by IVF - Long Jackson MD Advanced maternal age in multigravida 11/13/2018 07/18/2019 Overview: 11/13/18 - plan for NT with - Long Jackson MD Supervision of other normal 11/13/2018 12/04/2018 Overview: 11/13/18 - need to discuss CF screening - Long Jackson MD Female infertility 08/01/2018 11/13/2018 Overview: Added automatically from request for surgery [id number] Encounter for supervision of normal first in [...] of this encounter (statuses as of 11/29/2021) [facility] History of Past illness Narrative* Problem Noted Date Resolved Date Polyhydramnios in third trimester 04/24/2019 07/18/2019 Diet controlled gestational diabetes mellitus (GDM) in third trimester 04/16/2019 07/18/2019 Antepartum anemia 04/10/2019 07/18/2019 Overview: 05/21/19 Hgb 11.7 Eleanor Bryant APRN.[employer] 04/12/19 Hgb 10.2 Fe sulfate 325 mg daily on Mondays, Wednesdays and Fridays. Repeat CBC in one month. Eleanor Bryant APRN.[employer] Abnormal glucose in , antepartum 201807/18/2019 Overview: 04/09/19 1 hr GCT 149. 3 hr GTT ordered. 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 Baby A MARIELLA normal with appearance of marginal cord insertion of the dividing membrane. Baby B MARIELLA mildly increased. Follow up US in 3 weeks for growth and MARIELLA. Argenis Dyer APRN.CNM 11/13/18 - twin by IVF - Long Jackson MD Supervision of other normal 11/13/2018 12/04/2018 Overview: 11/13/18 - need to discuss CF screening - Long Jackson MD Female infertility 08/01/2018 11/13/2018 Overview: Added automatically from request for surgery [id number] Encounter for supervision of normal first in [...] of this encounter (statuses as of 12/09/2021) [facility] complaint+Reason for visit Narrative* Chief Complaint COVID-19 CONCERN FOR SINUS INFECTION COVID TEST/SYMPTOMATIC/[facility] COVID TEST/SYMPTOMATIC/[facility] Reason for Visit Acute sinusitis Acute nasopharyngitis [common cold] Encounter for screening for COVID-19 [facility] Work Phone: Evaluation note* Diagnosis Early stage of - Primary state, incidental [facility]* Diagnosis Antepartum multigravida of advanced maternal age- Primary with history of infertility, antepartum History of gestational diabetes in prior , currently with other poor obstetric history with history of section, antepartum History of macrosomia in infant in prior , currently with other poor obstetric history [facility]* Diagnosis Antepartum multigravida of advanced maternal age- Primary History of delivery, currently Previous delivery, unspecified as to episode of care or not applicable documented in this encounter [facility] note* Diagnosis Onset Date Resolution Status Acute sinusitis acute Acute nasopharyngitis [common cold] acute Encounter for screening for COVID-19 acute [facility] Work Phone: Evaluation note* Diagnosis AMA (advanced maternal age) multigravida 35+, first trimester- Primary Encounter for screening for nuchal translucency [facility]* Diagnosis Antepartum multigravida of advanced maternal age- Primary 12 weeks gestation of state, incidental documented in this encounter [facility] note* Diagnosis 16 weeks gestation of - Primary state, incidental Antepartum multigravida of advanced maternal age History of delivery, currently Previous delivery, unspecified as to episode of care or not applicable [facility]* Diagnosis 19 weeks gestation of - Primary state, incidental [facility]* Diagnosis Encounter for routine screening for malformation using ultrasonics- Primary 19 weeks gestation of state, incidental Elderly multigravida with antepartum condition or complication 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 [facility]* Diagnosis 24 weeks gestation of - Primary state, incidental [facility]* Diagnosis Abnormal maternal glucose tolerance, antepartum- Primary Gestational diabetes mellitus, class A1 Abnormal maternal glucose tolerance, complicating , childbirth, or the puerperium, unspecified as to episode of care Antepartum anemia Anemia, antepartum [facility] noteNo assessment information [facility] Work [facility]: [facility]* Diagnosis 28 weeks gestation of - Primary state, incidental Gestational diabetes mellitus, class A1 Abnormal maternal glucose tolerance, complicating , childbirth, or the puerperium, unspecified as to episode of care Need for vaccination Need for prophylactic vaccination and inoculation against unspecified single disease [facility]* Diagnosis 30 weeks gestation of - Primary state, incidental Antepartum multigravida of advanced maternal age Gestational diabetes mellitus, class A1 Abnormal maternal glucose tolerance, complicating , childbirth, or the puerperium, unspecified as to episode of care GDM, class A2 Abnormal maternal glucose tolerance, complicating , childbirth, or the puerperium, unspecified as to episode of care [facility]* Diagnosis 30 weeks gestation of state, incidental GDM, class A2 Abnormal maternal glucose tolerance, complicating , childbirth, or the puerperium, unspecified as to episode of care [facility] Diagnosis Gestational diabetes mellitus, class A1- Primary Abnormal maternal glucose tolerance, complicating , childbirth, or the puerperium, unspecified as to episode of care Antepartum multigravida of advanced maternal age 32 weeks gestation of state, incidental [facility]* Diagnosis 32 weeks gestation of - Primary state, incidental documented in this encounter [facility] note* Diagnosis GDM, class A2- Primary Abnormal maternal glucose tolerance, complicating , childbirth, or the puerperium, unspecified as to episode of care Antepartum multigravida of advanced maternal age documented in this encounter [facility] note* Diagnosis 34 weeks gestation of - Primary state, incidental Antepartum multigravida of advanced maternal age GDM, class A2 Abnormal maternal glucose tolerance, complicating , childbirth, or the puerperium, unspecified as to episode of care [facility]* Diagnosis 36 weeks gestation of - Primary state, incidental AMA (advanced maternal age) multigravida 35+, third trimester Diet controlled gestational diabetes mellitus (GDM) in third trimester [facility]* Diagnosis GDM, class A2- Primary Abnormal maternal glucose tolerance, complicating , childbirth, or the puerperium, unspecified as to episode of care Antepartum multigravida of advanced maternal age 36 weeks gestation of state, incidental [facility]* Diagnosis Onset Date Resolution Status 35 weeks gestation of acute Gestational diabetes acute Acute sinus infection acute Encounter for screening for COVID-19 acute [facility] Work Phone: Evaluation note* Diagnosis Antepartum multigravida of advanced maternal age- Primary 37 weeks gestation of state, incidental 30 weeks gestation of state, incidental GDM, class A2 Abnormal maternal glucose tolerance, complicating , childbirth, or the puerperium, unspecified as to episode of care documented in this encounter [facility] note* Diagnosis Onset Date Resolution Status 35 weeks gestation of acute Gestational diabetes acute Acute sinus infection acute Encounter for screening for COVID-19 acute 37 weeks gestation of acute 38 weeks gestation of [facility] Work Phone: Evaluation note* Diagnosis Antepartum multigravida of advanced maternal age- Primary 38 weeks gestation of state, incidental documented in this encounter [facility] note* Diagnosis Encounter for screening mammogram for breast cancer documented in this encounter [facility] note* Diagnosis care and examination- Primary Routine follow-up Cervical cancer screening Screening for malignant neoplasm of the cervix [facility] Diagnosis Onset Date Resolution Status 37 weeks gestation of resolved 38 weeks gestation of resolved Status post repeat low transverse section resolved [facility] Work Phone: Evaluation note* Diagnosis Encounter for screening mammogram for breast cancer documented in this encounter [facility] note* Diagnosis Onset Date Resolution Status Cholelithiasis with acute cholecystitis acute Elevated BP without diagnosis of hypertension acute [facility] Work Phone: Evaluation note* Diagnosis Encounter for gynecological examination (general) (routine) without abnormal findings- Primary Encounter for screening mammogram for breast cancer [facility]* Diagnosis Onset Date Resolution Status Elevated BP without diagnosis of hypertension acute Cholelithiasis with acute cholecystitis resolved S/P cholecystectomy acute [facility] Work Phone: evaluation note* Diagnosis Well adult exam- Primary Routine general medical examination at a health care facility Elevated LFTs Other abnormal blood chemistry Encounter for screening for diabetes mellitus Screening for diabetes mellitus Encounter for lipid screening for cardiovascular disease Screening for lipoid disorders [facility]* Diagnosis Encounter for screening mammogram for breast cancer documented in this encounter [facility] note* Diagnosis Well adult exam- Primary Routine general medical examination at a health care facility Elevated alkaline phosphatase level Other nonspecific abnormal serum enzyme levels Elevated blood sugar Other abnormal glucose Screening for depression Encounter for screening examination for other mental health and behavioral disorders Encounter for screening mammogram for breast cancer documented in this encounter [facility] note* Diagnosis Elevated alkaline phosphatase level- Primary Other nonspecific abnormal serum enzyme levels [facility] Additional Instructions Alternate ibuprofen and Tylenol for pain, oxycodone for breakthrough pain. Implant Used?: [facility] Work Phone: Hospital Discharge instructions Additional Instructions Okay to remove boot for shower/bath, sleep, etc. Okay to ice, Tylenol, ibuprofen as needed for pain.[facility] Work Phone: Reason for referral (narrative)* Diagnostic Procedure Only (Routine) - Authorized Specialty Diagnoses / Procedures Referred By Contskip t Referred To Contact [facility] Diagnoses Antepartum multigravida of advanced maternal age Procedures OBSTETRIC ULTRASOUND WHI US PREG UTERUS AFTER 1ST TRIMEST GESTATION Long Jackson MD [address] [place] [address] [facility] [address] [place] [address] Referral ID Status Reason Start Date Expiration Date Visits Requested Visits Authorized [id number] Authorized Auto-Generat ed Referral 01/18/2022 01/18/2023 1 1 [facility] for referral (narrative)* Outpatient Procedure (Routine) - Pending Review Specialty Diagnoses / Procedures Referred By Contac t Referred To Contact [facility] Diagnoses Antepartum multigravida of advanced maternal age 30 weeks gestation of Procedures NON-STRESS TEST NON-STRESS TEST Bere Mccauley MD [address] [facility] [place] [address] [facility] [address] [place] [address] Referral ID Status Reason Start Date Expiration Date Visits Requested Visits Authorized [id number] Pending Review Auto-Generat ed Referral 05/25/2022 05/25/2023 6 1 * Diagnostic Procedure Only (Routine) - Pending Review Specialty Diagnoses / Procedures Referred By Contac t Referred To [facility] Diagnoses Antepartum multigravida of advanced maternal age 30 weeks gestation of GDM, class A2 Procedures OBSTETRIC ULTRASOUND WHI US PREG UTERUS AFTER 1ST TRIMEST GESTATION Bere Mccauley MD [address] [place] [address] [facility] [address] [place] [address] Referral ID Status Reason Start Date Expiration Date Visits Requested Visits Authorized [id number] Pending Review Auto-Generat ed Referral 05/25/2022 05/25/2023 1 1 [facility] for referral (narrative)* Diagnostic Procedure Only (Routine) - Pending Review Specialty Diagnoses / Procedures Referred By Cesar huynh Referred To Contact [facility] Diagnoses GDM, class A2 Antepartum multigravida of advanced maternal age Procedures OBSTETRIC ULTRASOUND WHI US PREG UTERUS AFTER 1ST TRIMEST 1/ GESTATION Angie Padilla APRN.CNM [address] [place] [address] [facility] [address] [place] [address] Referral ID Status Reason Start Date Expiration Date Visits Requested Visits Authorized [id number] Pending Review Auto-Generat ed Referral 2 06/13/2023 1 1 [facility] for referral (narrative)* Outpatient Procedure (Routine) - Pending Review Specialty Diagnoses / Procedures Referred By Cesar huynh Referred To Contact [facility] Diagnoses 34 weeks gestation of Antepartum multigravida of advanced maternal age GDM, class A2 Procedures NON-STRESS TEST NON-STRESS TEST Angie Padilla APRN.CNM [address] [place] [address] [address] Referral ID Status Reason Start Date Expiration Date Visits Requested Visits Authorized [id number] Pending Review Auto-Generat ed Referral 2 06/23/2023 1 1 [facility] for referral (narrative)* Diagnostic Procedure Only (Routine) - Pending Review Specialty Diagnoses / Procedures Referred By Cesar huynh Referred To Contact [facility] Diagnoses Encounter for screening mammogram for breast cancer Procedures YOSEF SCREENING SCREENING MAMMOGRAPHY BI 2-VIEW BREAST INC CAD Keith Frederick MD [address] [place] [address] [facility] [address] [place] [address] Referral ID Status Reason Start Date Expiration Date Visits Requested Visits Authorized [id number] Pending Review Auto-Generat ed Referral 07/28/2022 08/27/2023 1 1 [facility] for referral (narrative)* Diagnostic Procedure Only (Routine) - Pending Review Specialty Diagnoses / Procedures Referred By Cesar t Referred To Contact [facility] Diagnoses Encounter for screening mammogram for breast cancer Procedures YOSEF SCREENING SCREENING MAMMOGRAPHY BI 2-VIEW BREAST INC CAD Keith Frederick MD [address] [place] [address] [facility] [address] [place] [address] Referral ID Status Reason Start Date Expiration Date Visits Requested Visits Authorized [id number] Pending Review Auto-Generat ed Referral 07/05/2023 08/03/2024 1 1 [facility] for referral (narrative)* Diagnostic Procedure Only (Routine) - New Request Specialty Diagnoses / Procedures Referred By Cesar huynh Referred To Contact [facility] Diagnoses Encounter for screening mammogram for breast cancer Procedures YOSEF SCREENING W JOSE ROBERTO SCREENING DIGITAL BREAST TOMOSYNTHESIS BI SCREENING MAMMOGRAPHY BI 2-VIEW BREAST INC CAD Keith Frederick MD [facility] [place] [address] [facility] [address] [place] [address] Referral ID Status Reason Start Date Expiration Date Visits Requested Visits Authorized [id number] New Request Auto-Generat ed Referral 07/26/2025 1 1 [facility] for referral (narrative)No reason for referral information [facility] Phone: Reason for visit Narrative* Diagnostic Procedure Only (Routine) - Closed Specialty Diagnoses / Procedures Referred By Cesar huynh Referred To Contact [facility] Diagnoses Antepartum multigravida of advanced maternal age Procedures OBSTETRIC ULTRASOUND WHI US PREG UTERUS AFTER 1ST TRIMEST 1/ GESTATION Long Jackson MD [address] [place] [address] [facility] [address] [place] [address] Referral ID Status Reason Start Date Expiration Date V isits Requested Visits Authorized [id number] Closed Auto-Generate d Referral 01/18/2022 01/18/2023 1 1 [facility] Reason for Referral Specialty Diagnoses / Procedures Referred By Contac t Referred To Contact Diagnoses Antepartum multigravida of advanced maternal age Procedures CONSULT TO MATERNAL MEDI OFFICE/OUTPATIENT [facility] 60-74 MINUTES Long Jackson MD [address] [place] [address] Referral ID Status Reason Start Date Expiration Date Visits Requested Visits Authorized [id number] Authorized PCP Requested Referral Auto-Generate d Referral 12/21/2021 12/21/2022 1 1 Specialty Diagnoses / Procedures Referred By Contac t Referred To Contact [facility] Diagnoses Antepartum multigravida of advanced maternal age Procedures NUCHAL TRANSLUCENCY WHI US NUCHAL TRANSLUCENCY 1ST GESTATION Long Jackson MD [address] [place] [address] [facility] [address] [place] [address] Referral ID Status Reason Start Date Expiration Date Visits Requested Visits Authorized [id number] Authorized Auto-Generat ed Referral 12/21/2021 12/21/2022 1 [...] 12/21/2021 Problem Noted Date OB Reminders 12/21/2021 Family History No Family History Records Found Relationship Condition Age at Onset Recorded Date/T mireya Not Specified Epilepsy Unknown Malignant neoplasm of skin Unknown Hypertension Unknown Advance Directives No Advanced Directives Records Found Advance Directive Response Recorded Date/ Time Living Will No September 07 10:10am Power of Green Meat Packer No September 07, 2021 10:10am Advance Directive Response Recorded Date/ Time Living Will No September 07 9:10am Power of [employer] Meat P[employer] No September 07, 2021 9:10am Advance Directive Response Recorded Date/ Time Living Will No July 26, 022 10:50am Power of Green [employer] Packer No July 26, 2022 10:50am Advance Directive Response Recorded Date/ Time Living Will No September 24 4:04am Power of [employer] P[employer] No September 24, 2023 4:04am Advance Directive Response Recorded Date/ Time Living Will No September 24 3:09pm Power of Green [employer] P[employer] No September 24, 2023 3:09pm Advance Directive Response Recorded Date/ Time Living Will No November 01, 2023 10:55pm Power of Green [employer] P[employer] No October 31 10:55pm Advance Directive Response Recorded Date/ Time Living Will No November 01, 2023 11:55pm Power of [employer] P[employer] No October 31 11:55pm Chief Complaint and Reason for Visit Chief Complaint CONCERN FOR SINUS IN FECTION COVID TEST/SYMPTOMATIC/[facility] COVID TEST/SYMPTOMATIC/W[facility] Reason for Visit Acute sinusitis Acute nasopharyngitis [common cold] Encounter for screening for COVID-19 Chief Complaint COVID TEST/[facility] EMP Chief Complaint COVID TEST/WCH EMP 33 WEEK Chief Complaint COVID TEST/W[facility] EMP 33 WEEK NON STRESS TEST Chief Complaint COVID TEST/WCH EMP 33 WEEK NON STRESS TEST SINUS INFECTION SYMPTOMS COVID TEST NST Reason for Visit 35 weeks gestation o f Gestational diabetes Acute sinus infection Encounter for screening for COVID-19 Chief Complaint COVID TEST/WCH EMP 33 WEEK NON STRESS TEST SINUS INFECTION SYMPTOMS COVID TEST NST ITCHING/ NST Reason for Visit 35 weeks gestation o f Gestational diabetes Acute sinus infection Encounter for screening for COVID-19 Chief Complaint COVID TEST/[facility]CH EMP 33 WEEK NON STRESS TEST SINUS INFECTION SYMPTOMS COVID TEST NST ITCHING/ NST Reason for Visit 35 weeks gestation o f Gestational diabetes Acute sinus infection Encounter for screening for COVID-19 37 weeks gestation of 38 weeks gestation of Chief Complaint NST ITCHING/ NST REPEAT C/S HISTORY OF GESTATIONAL DIABETES Reason for Visit 37 weeks gestation o f 38 weeks gestation of Status post repeat low transverse line maintainer section Complaint CHOLELITHIASIS WITH ACUTE CHOLECYSTITIS Reason for Visit Cholelithiasis with acute cholecystitis Elevated BP without diagnosis of hypertension Chief Complaint CHOLELITHIASIS WITH ACUTE CHOLECYSTITIS ACUTE CHOLTCYSTITIS Reason for Visit Cholelithiasis with acute cholecystitis Elevated BP without diagnosis of hypertension Chief Complaint CHOLELITHIASIS WITH ACUTE CHOLECYSTITIS ACUTE CHOLTCYSTITIS CHOLELITHIASIS DOS 09/24 L ANKLE INJURY Reason for Visit Elevated BP without diagnosis of hypertension Cholelithiasis with acute cholecystitis S/P cholecystectomy Chief Complaint Admit Date [employer] February 25, 2025 6:41a m Summary Purpose Additional Source Comments Source Comments (unrecognize d section and content) In the event this informatio n is protected by the Federal Confidentiality of Alcohol and Drug Abuse Patient Records regulations: The Federal rules restrict any use of the information to criminally investigate or prosecute any alcohol or drug abuse patient.[facility] the event this information is protected by the Federal Confidentiality of Alcohol and Drug Abuse Patient Records regulations: The Federal rules restrict any use of the information to criminally investigate or prosecute any alcohol or drug abuse patient.[facility] Hospital[facility] the event this information is protected by the Federal Confidentiality of Alcohol and Drug Abuse Patient Records regulations: The Federal rules restrict any use of the information to criminally investigate or prosecute any alcohol or drug abuse patient.[facility] the event this information is protected by the Federal Confidentiality of Alcohol and Drug Abuse Patient Records regulations: The Federal rules restrict any use of the information to criminally investigate or prosecute any alcohol or drug abuse patient.[facility] HospitalIn the event this information is protected by the Federal Confidentiality of Alcohol and Drug Abuse Patient Records regulations: The Federal rules restrict any use of the information to criminally investigate or prosecute any alcohol or drug abuse patient.[facility] HospitalIn the event this information is protected by the Federal Confidentiality of Alcohol and Drug Abuse Patient Records regulations: The Federal rules restrict any use of the information to criminally investigate or prosecute any alcohol or drug abuse patient.[facility] HospitalIn the event this information is protected by the Federal Confidentiality of Alcohol and Drug Abuse Patient Records regulations: The Federal rules restrict any use of the information to criminally investigate or prosecute any alcohol or drug abuse patient.[facility] HospitalIn the event this information is protected by the Federal Confidentiality of Alcohol and Drug Abuse Patient Records regulations: The Federal rules restrict any use of the information to criminally investigate or prosecute any alcohol or drug abuse patient.[facility] HospitalIn the event this information is protected by the Federal Confidentiality of Alcohol and Drug Abuse Patient Records regulations: The Federal rules restrict any use of the information to criminally investigate or prosecute any alcohol or drug abuse patient.[facility] HospitalIn the event this information is protected by the Federal Confidentiality of Alcohol and Drug Abuse Patient Records regulations: The Federal rules restrict any use of the information to criminally investigate or prosecute any alcohol or drug abuse patient.[facility] HospitalIn the event this information is protected by the Federal Confidentiality of Alcohol and Drug Abuse Patient Records regulations: The Federal rules restrict any use of the information to criminally investigate or prosecute any alcohol or drug abuse patient.[facility] HospitalIn the event this information is protected by the Federal Confidentiality of Alcohol and Drug Abuse Patient Records regulations: The Federal rules restrict any use of the information to criminally investigate or prosecute any alcohol or drug abuse patient.[facility] HospitalIn the event this information is protected by the Federal Confidentiality of Alcohol and Drug Abuse Patient Records regulations: The Federal rules restrict any use of the information to criminally investigate or prosecute any alcohol or drug abuse patient.[facility] HospitalIn the event this information is protected by the Federal Confidentiality of Alcohol and Drug Abuse Patient Records regulations: The Federal rules restrict any use of the information to criminally investigate or prosecute any alcohol or drug abuse patient.[facility] HospitalIn the event this information is protected by the Federal Confidentiality of Alcohol and Drug Abuse Patient Records regulations: The Federal rules restrict any use of the information to criminally investigate or prosecute any alcohol or drug abuse patient.[facility] HospitalIn the event this information is protected by the Federal Confidentiality of Alcohol and Drug Abuse Patient Records regulations: The Federal rules restrict any use of the information to criminally investigate or prosecute any alcohol or drug abuse patient.[facility] HospitalIn the event this information is protected by the Federal Confidentiality of Alcohol and Drug Abuse Patient Records regulations: The Federal rules restrict any use of the information to criminally investigate or prosecute any alcohol or drug abuse patient.[facility] HospitalIn the event this information is protected by the Federal Confidentiality of Alcohol and Drug Abuse Patient Records regulations: The Federal rules restrict any use of the information to criminally investigate or prosecute any alcohol or drug abuse patient.[facility] HospitalIn the event this information is protected by the Federal Confidentiality of Alcohol and Drug Abuse Patient Records regulations: The Federal rules restrict any use of the information to criminally investigate or prosecute any alcohol or drug abuse patient.[facility] HospitalIn the event this information is protected by the Federal Confidentiality of Alcohol and Drug Abuse Patient Records regulations: The Federal rules restrict any use of the information to criminally investigate or prosecute any alcohol or drug abuse patient.[facility] HospitalIn the event this information is protected by the Federal Confidentiality of Alcohol and Drug Abuse Patient Records regulations: The Federal rules restrict any use of the information to criminally investigate or prosecute any alcohol or drug abuse patient.[facility] HospitalIn the event this information is protected by the Federal Confidentiality of Alcohol and Drug Abuse Patient Records regulations: The Federal rules restrict any use of the information to criminally investigate or prosecute any alcohol or drug abuse patient.[facility] HospitalIn the event this information is protected by the Federal Confidentiality of Alcohol and Drug Abuse Patient Records regulations: The Federal rules restrict any use of the information to criminally investigate or prosecute any alcohol or drug abuse patient.[facility] HospitalIn the event this information is protected by the Federal Confidentiality of Alcohol and Drug Abuse Patient Records regulations: The Federal rules restrict any use of the information to criminally investigate or prosecute any alcohol or drug abuse patient.[facility] HospitalIn the event this information is protected by the Federal Confidentiality of Alcohol and Drug Abuse Patient Records regulations: The Federal rules restrict any use of the information to criminally investigate or prosecute any alcohol or drug abuse patient.[facility] HospitalIn the event this information is protected by the Federal Confidentiality of Alcohol and Drug Abuse Patient Records regulations: The Federal rules restrict any use of the information to criminally investigate or prosecute any alcohol or drug abuse patient.[facility] HospitalIn the event this information is protected by the Federal Confidentiality of Alcohol and Drug Abuse Patient Records regulations: The Federal rules restrict any use of the information to criminally investigate or prosecute any alcohol or drug abuse patient.[facility] HospitalIn the event this information is protected by the Federal Confidentiality of Alcohol and Drug Abuse Patient Records regulations: The Federal rules restrict any use of the information to criminally investigate or prosecute any alcohol or drug abuse patient.[facility] HospitalIn the event this information is protected by the Federal Confidentiality of Alcohol and Drug Abuse Patient Records regulations: The Federal rules restrict any use of the information to criminally investigate or prosecute any alcohol or drug abuse patient.[facility] HospitalIn the event this information is protected by the Federal Confidentiality of Alcohol and Drug Abuse Patient Records regulations: The Federal rules restrict any use of the information to criminally investigate or prosecute any alcohol or drug abuse patient.[facility] HospitalIn the event this information is protected by the Federal Confidentiality of Alcohol and Drug Abuse Patient Records regulations: The Federal rules restrict any use of the information to criminally investigate or prosecute any alcohol or drug abuse patient.[facility] HospitalIn the event this information is protected by the Federal Confidentiality of Alcohol and Drug Abuse Patient Records regulations: The Federal rules restrict any use of the information to criminally investigate or prosecute any alcohol or drug abuse patient.[facility] HospitalIn the event this information is protected by the Federal Confidentiality of Alcohol and Drug Abuse Patient Records regulations: The Federal rules restrict any use of the information to criminally investigate or prosecute any alcohol or drug abuse patient.[facility] HospitalIn the event this information is protected by the Federal Confidentiality of Alcohol and Drug Abuse Patient Records regulations: The Federal rules restrict any use of the information to criminally investigate or prosecute any alcohol or drug abuse patient.[facility] HospitalIn the event this information is protected by the Federal Confidentiality of Alcohol and Drug Abuse Patient Records regulations: The Federal rules restrict any use of the information to criminally investigate or prosecute any alcohol or drug abuse patient.[facility] HospitalIn the event this information is protected by the Federal Confidentiality of Alcohol and Drug Abuse Patient Records regulations: The Federal rules restrict any use of the information to criminally investigate or prosecute any alcohol or drug abuse patient.[facility] HospitalIn the event this information is protected by the Federal Confidentiality of Alcohol and Drug Abuse Patient Records regulations: The Federal rules restrict any use of the information to criminally investigate or prosecute any alcohol or drug abuse patient.[facility] HospitalIn the event this information is protected by the Federal Confidentiality of Alcohol and Drug Abuse Patient Records regulations: The Federal rules restrict any use of the information to criminally investigate or prosecute any alcohol or drug abuse patient.[facility] HospitalIn the event this information is protected by the Federal Confidentiality of Alcohol and Drug Abuse Patient Records regulations: The Federal rules restrict any use of the information to criminally investigate or prosecute any alcohol or drug abuse patient.[facility] HospitalIn the event this information is protected by the Federal Confidentiality of Alcohol and Drug Abuse Patient Records regulations: The Federal rules restrict any use of the information to criminally investigate or prosecute any alcohol or drug abuse patient.[facility] HospitalIn the event this information is protected by the Federal Confidentiality of Alcohol and Drug Abuse Patient Records regulations: The Federal rules restrict any use of the information to criminally investigate or prosecute any alcohol or drug abuse patient.[facility] HospitalIn the event this information is protected by the Federal Confidentiality of Alcohol and Drug Abuse Patient Records regulations: The Federal rules restrict any use of the information to criminally investigate or prosecute any alcohol or drug abuse patient.[facility] HospitalIn the event this information is protected by the Federal Confidentiality of Alcohol and Drug Abuse Patient Records regulations: The Federal rules restrict any use of the information to criminally investigate or prosecute any alcohol or drug abuse patient.[facility] HospitalIn the event this information is protected by the Federal Confidentiality of Alcohol and Drug Abuse Patient Records regulations: The Federal rules restrict any use of the information to criminally investigate or prosecute any alcohol or drug abuse patient.[facility] HospitalIn the event this information is protected by the Federal Confidentiality of Alcohol and Drug Abuse Patient Records regulations: The Federal rules restrict any use of the information to criminally investigate or prosecute any alcohol or drug abuse patient.[facility] Reason for Visit (unrecogniz ed section and content) Reason Onset Date Comments Care 07/22/2022 Specialty Diagnoses / Procedures Referred By Contac t 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 OB Procedures OFFICE/OUTPATIENT ESTABLISHED LOW MDM 20-29 MIN EST [facility] OB Tahmina Blackwood MD [address] [place] [address] Carmelita Parikh MD [address] [place] [address] Referral ID Status Reason Start Date Expiration Date Visits Re quested Visits Authorized [id number] Closed 07/15/2022 08/27/2022 2 2 Reason Onset Date Comments Care 07/06/2022 Specialty Diagnoses / Procedures Referred By Contac t 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 ob Procedures [facility] OB 1ST EXAM Self Long Jackson MD [address] [place] [address] Referral ID Status Reason Start Date Expiration Date V isits Requested Visits Authorized [id number] Authorized 08/28/2021 08/27/2022 99 99 Reason Onset Date Comments Care 06/23/2022 Specialty Diagnoses / Procedures Referred By Contac t 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 ob Procedures NEW [facility] OB 1ST EXAM Self Long Jackson MD [address] [place] [place] [address] Reason Onset Date Comments Care 06/10/2022 Reason Onset Date Comments Care 05/12/2022 Reason Onset Date Comments Care 01/18/2022 Reason Comments +UPT Reason Comments Care Reason Comments Initial OB Visit Reason Comments Outside Labs Results Reason Comments US Specialty Diagnoses / Procedures Referred By Contac t Referred To Contact [facility] Diagnoses Antepartum multigravida of advanced maternal age Procedures NUCHAL TRANSLUCENCY WHI US NUCHAL TRANSLUCENCY 1ST GESTATION Long Jackson MD [address] [place] [address] [facility] [address] [place] [address] Referral ID Status Reason Start Date Expiration Date V isits Requested Visits Authorized [id number] Closed Auto-Generate d Referral 12/21/2021 12/21/2022 1 1 Reason Comments Maternity 21 results Reason Onset Date Comments Care 02/17/2022 Reason Comments Results Reason Onset Date Comments Care 03/11/2022 Specialty Diagnoses / Procedures Referred By Contac t 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 Supervision of elderly multigravida, unspecified trimester OB / anatomy ultrasound Procedures US PREG UTERUS AFTER 1ST TRIMEST GESTATION EST I OB Long Jackson MD [address] [place] [address] Angie Padilla APRN.[facility] [address] [place] [address] Referral ID Status Reason Start Date Expiration Date Visits Re quested Visits Authorized [id number] Closed 08/28/2021 08/27/2022 1 1 Reason Onset Date Comments Care 04/12/2022 Specialty Diagnoses / Procedures Referred By Contac t 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 ob Procedures [facility] OB 1ST EXAM Self, Long Herrera MD [address] [place] [address] Reason Comments Medication Problem Reason Onset Date Comments Care 05/25/2022 Specialty Diagnoses / Procedures Referred By Contac t Referred To Contact Diagnoses Antepartum multigravida of advanced maternal age Procedures CONSULT TO MATERNAL MEDI OFFICE/OUTPATIENT NEW HIGH MDM 60-74 MINUTES Long Jackson MD [address] [place] [address] Referral ID Status Reason Start Date Expiration Date V isits Requested Visits Authorized [id number] Closed PCP Requested Referral Auto-Generated Referral 12/21/2021 12/21/2022 1 1 Specialty Diagnoses / Procedures Referred By Contac t Referred To Contact [facility] Diagnoses Antepartum multigravida of advanced maternal age 30 weeks gestation of GDM, class A2 Procedures OBSTETRIC ULTRASOUND WHI US PREG UTERUS AFTER 1ST TRIMEST GESTATION Bere Mccauley MD [address] [place] [address] [address] Referral ID Status Reason Start Date Expiration Date V isits Requested Visits Authorized [id number] Open Auto-Generate d Referral 05/25/2022 05/25/2023 1 1 Reason Comments Orders Reason Comments Weekly NST Specialty Diagnoses / Procedures Referred By Contac t Referred To Contact [facility] Diagnoses GDM, class A2 Antepartum multigravida of advanced maternal age Procedures OBSTETRIC ULTRASOUND WHI US PREG UTERUS AFTER 1ST TRIMEST GESTATION Angie Padilla APRN.[facility] [address] [place] [address] [facility] [address] [place] [address] Referral ID Status Reason Start Date Expiration Date V isits Requested Visits Authorized [id number] Closed Auto-Generate d Referral 06/13/2022 06/13/2023 1 1 Reason Comments Patient Question Reason Onset Date Comments Care 07/15/2022 Referral ID Status Reason Start Date Expiration Date V isits Requested Visits Authorized [id number] Authorized 07/15/2022 08/27/2022 2 2 Reason Comments Ob Delivery Note Reason Comments FMLA Paperwork Specialty Diagnoses / Procedures Referred By Cesar huynh 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 Follow-up exam 6Wk Post Procedures OFFICE/OUTPATIENT ESTABLISHED HIGH MDM 40-54 MIN POST Long Jackson MD [address] [place] [address] Long Jackson MD [address] [place] [address] Referral ID Status Reason Start Date Expiration Date Visits Re quested Visits Authorized [id number] Closed 08/24/2022 08/27/2023 1 1 Reason Comments Forms/letter Reason Comments Yearly Exam Reason Comments Physical Reason Comments Well Adult Reason Comments Results Forms Wellness Reason Comments Results Care Teams (unrecognized sec tion and content) Grease Monkey Relationship Specialty Start Date End Date Keith Frederick MD [address] [place] [address] PCP - General Family Practice 06/22/21 Grease Monkey Relationship Specialty Start Date End Date Keith Frederick MD [address] [place] [address] PCP - General Family Practice 06/22/21 Grease Monkey Relationship Specialty Start Date End Date Keith Frederick MD [address] [place] [address] PCP - General Family Practice 06/22/21 Grease Monkey Relationship Specialty Start Date End Date Keith Frederick MD [address] [place] [address] PCP - General Family Practice 06/22/21 Grease Monkey Relationship Specialty Start Date End Date Keith Frederick MD [facility] [place] [address] PCP - General Family Practice 06/22/21 Grease Monkey Relationship Specialty Start Date End Date Keith Frederick MD [address] [place] [address] PCP - General Family Practice 06/22/21 Grease Monkey Relationship Specialty Start Date End Date Keith Frederick MD [address] [place] [address], [place] [address] PCP - General Family Practice 06/22/21 Grease Monkey Relationship Specialty Start Date End Date Keith Frederick MD [address] [place] [address] [place] [address] PCP - General Family Practice 06/22/21 Grease Monkey Relationship Specialty Start Date End Date Keith Frederick MD [address] [place] [address] PCP - General Family Practice 06/22/21 Grease Monkey Relationship Specialty Start Date End Date Keith Frederick MD [address] [place] [address] PCP - General Family Practice 06/22/21 Grease Monkey Relationship Specialty Start Date End Date Keith Frederick MD [address] [place] [address] [place] [address] PCP - General Family Medicine 06/22/21 Grease Monkey Relationship Specialty Start Date End Date Keith Frederick MD [address] [place] [address] PCP - General Family Medicine 06/22/21 Grease Monkey Relationship Specialty Start Date End Date Keith Frederick MD [address] [place] [address] [place] [address] PCP - General Family Medicine 06/22/21 Grease Monkey Relationship Specialty Start Date End Date Keith Frederick MD [address] [place] [address] [place] [address] PCP - General Family Medicine 06/22/21 Grease Monkey Relationship Specialty Start Date End Date Keith Frederick MD [address] [facility] [address] PCP - General Family Medicine 06/22/21 Grease Monkey Relationship Specialty Start Date End Date Keith Frederick MD [address] [facility] [place] [address] PCP - General Family Medicine 06/22/21 Grease Monkey Relationship Specialty Start Date End Date Keith Frederick MD [address] [facility] [place] [address] PCP - General Family Medicine 06/22/21 Grease Monkey Relationship Specialty Start Date End Date Keith Frederick MD [facility] [facility] [place] [address] PCP - General Family Medicine 06/22/21 Grease Monkey Relationship Specialty Start Date End Date Keith Frederick MD [facility] [facility] [place] [address] PCP - General Family Medicine 06/22/21 Grease Monkey Relationship Specialty Start Date End Date Keith Frederick MD [facility] [facility] [place] [address] PCP - General Family Medicine 06/22/21 Grease Monkey Relationship Specialty Start Date End Date Keith Frederick MD [address] [facility] [place] [address] PCP - General Family Medicine 06/22/21 Grease Monkey Relationship Specialty Start Date End Date Keith Frederick MD [facility] [place] [address] PCP - General Family Medicine 06/22/21 Grease Monkey Relationship Specialty Start Date End Date Keith Frederick MD [address] [facility] [place] [address] PCP - General Family Medicine 06/22/21 Grease Monkey Relationship Specialty Start Date End Date Keith Frederick MD [address] [place] [address] PCP - General Family Medicine 06/22/21 Team Status: Active Member Role Status Dates Dr. Manuel Greer MD Family Provider Active Dr. Manuel Noland MD Primary Care Provider Active Team Status: Inactive Member Role Status Dates Dr. Long Jackson MD Admit Provider, At tending Provider, Referring Provider Active Dr. Manuel Noland MD Primary Care Provider Active Team Status: Inactive Member Role Status Dates Usha Roe PA, PA Primary Care Provider Active Dr. Long Jackson MD Attending Provider Active Team Status: Inactive Member Role Status Dates Dr. Manuel Noland MD Primary Care Provider Active Dr. Long Jackson MD Attending Provider Active Team Status: Inactive Member Role Status Dates Dr. Manuel Noland MD Primary Care Provider Active Dr. Long Jackson MD Attending Provider, Referring Pr ovider Active Grease Monkey Relationship Specialty Start Date End Date Keith Frederick MD [address] [place] [address] PCP - General Family Medicine 06/22/21 Grease Monkey Relationship Specialty Start Date End Date Keith Frederick MD [address] [place] [address] PCP - General Family Medicine 06/22/21 Grease Monkey Relationship Specialty Start Date End Date Keith Frederick MD [address] [place] [address] PCP - General Family Medicine 06/22/21 Team Status: Active Member Role Status Dates Dr. aMnuel Noland MD Primary Care Provider Active Dr. Ag Villa MD Emergency Provider Active Dr. Ty Tang MD Admit Provider, Attending Provider Active Team Status: Active Member Role Status Dates Dr. Manuel Noland MD Primary Care Provider Active Dr. Ag Villa MD Emergency Provider Active Dr. Ty Tang MD Admit Provid er, Attending Provider, Other Provider Active Team Status: Inactive Member Role Status Dates Dr. Manuel Noland MD Primary Care Provider Active Dr. Ag Villa MD Emergency Provider Active Dr. Ty Tang MD Admit Provider, Attending Provider Active Grease Monkey Relationship Specialty Start Date End Date Keith Frederick MD [address] [place] [address] PCP - General Family Medicine 06/22/21 Team Status: Inactive Member Role Status Dates Dr. Manuel Noland MD Primary Care Provider, Referring Provider Active Dr. Ty Tang MD Attending Provider Active Team Status: Inactive Member Role Status Dates Dr. Manuel Noland MD Primary Care Provider Active Dr. Derian Bird MD Emergency Provider Active Grease Monkey Relationship Specialty Start Date End Date Keith Frederick MD [address] [place] [address] PCP - General Family Medicine 06/22/21 Team Status: Active Member Role Status Dates Dr. Manuel Greer MD Family Provider Active Dr. Keith Frederick MD Primary Care Provider Active Team Status: Inactive Member Role Status Dates Dr. Keith Frederick MD Primary Care Pro vider, Attending Provider, Referring Provider Active Team Status: Inactive Member Role Status Dates Dr. Manuel Noland MD Primary Care Provider Active Dr. Derian Bird MD Attending Provider, Emergency Provider Active Grease Monkey Relationship Specialty Start Date End Date Keith Frederick MD [address] [place] [address] PCP - General Family Medicine 06/22/21 Grease Monkey Relationship Specialty Start Date End Date Keith Frederick MD [address] [place] [address] PCP - General Family Medicine 06/22/21 Grease Monkey Relationship Specialty Start Date End Date Keith Frederick MD [address] [place] [address] PCP - General Family Medicine 06/22/21 Jennifer Mosquera APRN.[employer] [address] [place] [address] [employer] Operator Family Medicine 01/27/25 Usha Roe PA-C [address] [place] [address] [employer] Machine Operator [facility] 01/27/25 Grease Monkey Relationship Specialty Start Date End Date Keith Frederick MD [address] [place] [address] PCP - General Family Medicine 06/22/21 Jennifer Mosquera APRN.[employer] [address] [place] [address] [employer]oving Machine Operator [facility] 01/27/25 Usha Roe PA-C [address] [place], [place] [id number] [facility] 01/27/25 Team Status: Active Member Role/Relationship Status Dates Dr. Manuel Greer MD Family Provider Active Dr. Keith Frederick MD Primary Care Provider Active Team Status: Active Member Role/Relationship Status Dates Dr. Keith Frederick MD Primary Care Provider Active Start: February 25, 2025 Health Risk Assessment Attending Provider Active Start: February 25, 2025 Health Risk Assessment Referring Provider Active Start: February 25, 2025 Team Status: Inactive Member Role/Relationship Status Dates Dr. Keith Frederick MD Primary Care Provider Active Start: February 26, 2025 End: February 26, 2025 Dr. Keith Frederick MD Attending Provider Active Start: February 26, 2025 End: February 26, 2025 Grease Monkey Relationship Specialty Start Date End Date Keith Frederick MD [address] [place] [address] PCP - General Family Medicine 06/22/21 Jennifer Mosquera APRN.[employer] [address] [place] [address] [employer] [facility]25 Usha Roe PA-C [address] [place] [address] [facility] 01/27/25 Grease Monkey Relationship Specialty Start Date End Date Keith Frederick MD [address] [place] [address] PCP - General Family Medicine 06/22/21 Jennifer Mosquera APRN.[employer] [address] [place] [address] [facility] 01/27/25 Usha Roe PA-C [address] [place] [address] [facility] 01/27/25 Goals (unrecognized section and content) Goals may be documented in a n alternate sectionGoals may be documented in an alternate sectionGoals may be documented in an alternate sectionGoals may be documented in an alternate sectionGoals may be documented in an alternate sectionGoals may be documented in an alternate sectionGoals may be documented in an alternate sectionGoals may be documented in an alternate sectionGoals may be documented in an alternate sectionGoals may be documented in an alternate section INFORMATION SOURCE (unrecogn ized section and content) DATE CREATED AUTHOR 03/22/2025 [facility] DATE CREATED AUTHOR JAMIE QUIÑONES 03/24/2025 [facility] FOR RECORDS PERTAINING TO PATIENTS WHO ARE [...] BE BASED ON THE PRIMARY CLINICAL RECORDS. [facility] [employer] [facility]. provides no warranty or guarantee of the accuracy or completeness of information in this document.
== END | disposition home or self-care (01) ==
LOC: OPUS 07:20
PROVIDERS: PCP Family Medicine; Referring Provider Family Medicine; Visit Provider Family Medicine
DX: Z12.31 Encounter for screening mammogram for malignant neoplasm of breast (principal); R74.8 Abnormal levels of other serum enzymes
CPT/HCPCS: 76705; 77063; 77067